=== PATIENT | female | born 1955 | race Caucasian/White ===

== ENCOUNTER 2016-07-06 12:09 | Inpatient (IN) | payer MEDICARE, BC ==
[~2016-07-06] VITALS: Ht 172.7 cm; Wt 140.3 kg
[~2016-07-06 12:09] MED LIST: AMIO200T2 PO; AMLO10TA2 PO; ARIP2TAB PO; ASPI-482 PO; ATOR20TA58 PO; BUSP5TAB PO; BYSTOLIC10 MG PO; CLON0.2T PO; DARB100V SQ; DILT360C PO; DOCU100C5 PO; ESCI20TA PO; FE F PO; FERR-26 PO; GABA600T2 PO; HEPA500022 IJ; INSU100V SQ; IPRA3AMP NEB; LABE5VIA14 IV; LISI1TAB3 PO; MELA3TAB PO; MICO85PO2 TP; MIRT7.5T8 PO; NPH,100V4 SQ; POLY17PO3 PO; SENN8.6T3 PO; SITA1TAB11 PO
--- NOTE | 2016-07-06 12:41 | PHYS DOC ---
Past Medical History Past Medical History: Diabetes-Type II, High Cholesterol, Hypertension, Renal Failure Past Surgical History: Other Additional Past Surgical Histo: dialysis catheter R chest Alcohol Use: None Drug Use: None Adult General Chief Complaint Chief Complaint: DIARRHEA HPI HPI Patient is a 60 year old female who presents with diarrhea. Patient has 5 day history of frequent loose stools, unable to quantify today. Decreased appetite with no oral intake for several days. Reports nausea without vomiting, denies abdominal pain, denies hematochezia or melena, denies dysuria or hematuria. Reports generalized weakness, has just been lying in bed. Missed dialysis on Wednesday and today. Also has history of diabetes and hypertension. PCP is Dr. Patel , optical goods drilling machine operator is Dr. Reynaga. Review of Systems Review of Systems Constitutional: Denies fever or chills , reports generalized weakness Eyes: Denies change in visual acuity HENT: Denies nasal congestion or sore throat Respiratory: Denies cough or shortness of breath Cardiovascular: Denies chest pain or edema GI: Reports nausea and diarrhea. Denies abdominal pain, vomiting, bloody stools : Denies dysuria or hematuria Musculoskeletal: Denies back pain or joint pain Integument: Denies rash or skin lesions Neurologic: Denies headache, focal weakness or sensory changes Current Medications Current Medications Current Medications Medications (Trade) Dose Ordered Sig/Gi Start Time Stop Time Status Last Admin Dose Admin Ondansetron HCl (Zofran) 4 mg 1X ONCE 07/06/16 12:45 07/06/16 12:46 DC 07/06/16 13:33 4 MG Sodium Chloride (Iv Sodium Chloride 0.9% 500ml Bag) 500 ml @ 1,000 mls/hr 1X ONCE 07/06/16 12:45 07/06/16 13:14 DC 07/06/16 13:33 1,000 MLS/HR Allergies Allergies Allergies Coded Allergies Type Severity Reaction Last Updated Verified No Known Drug Allergies 07/06/16 No Physical Exam Physical Exam Constitutional: Obese, no acute distress, non-toxic appearance. HENT: Normocephalic, atraumatic, bilateral external ears normal, oropharynx dry , nose normal. Eyes: PERRLA, EOMI, conjunctiva normal, no discharge. Neck: supple, no stridor. Cardiovascular: RRR, no murmurs, no edema. Lungs & Thorax: Diminished throughout, LCTAB, no wheezing, no respiratory distress. Abdomen: Hypoactive bowel sounds, soft, nontender, no masses or pulsatile masses , nondistended. Skin: Warm, dry, no erythema, mild erythema over right upper chest wall and surrounding dialysis port, numerous scabs in various stages of healing. Back: No CVA tenderness. Extremities: No tenderness, no edema. Neurologic: Alert and oriented X 3, moves all extremities, no focal deficits noted. Psychologic: flat affect Current Patient Data Vital Signs Vital Signs Date Time Temp Pulse Resp B/P Pulse Ox O2 Delivery O2 Flow Rate FiO2 07/06/16 13:36 82 21 101/46 92 Nasal Cannula 3 07/06/16 13:30 100.4 100.4 Lab Values Laboratory Tests Test 07/06/16 12:54 07/06/16 13:00 07/06/16 13:10 Urine Collection Type Unknown Urine Color Beena Urine Clarity Cloudy Urine pH 5.0 Urine Specific [place] 1.020 Urine Protein >=300mg/dL (NEG-TRACE) Urine Glucose (UA) Negativemg/dL (NEG) Urine Ketones (Stick) Tracemg/dL (NEG) Urine Blood Large (NEG) Urine Nitrite Negative (NEG) Urine Bilirubin Moderate (NEG) Urine Urobilinogen Dipstick 1.0mg/dL (0.2 mg/dL) Urine Leukocyte Esterase Moderate (NEG) Urine RBC 1-2/HPF (0-2) Urine WBC >40/HPF (0-4) Urine Squamous Epithelial Cells Occ/LPF Urine Bacteria Many/HPF (0-FEW) Prothrombin Time 17.5SEC (11.7-14.0) H Prothrombin Time INR 1.5 (0.8-1.1) H PTT 30SEC (24-38) Sodium Level 141mmol/L (136-145) Potassium Level 4.8mmol/L (3.5-5.1) Chloride Level 104mmol/L (98-107) Carbon Dioxide Level 21mmol/L (21-32) Anion Gap 16 (6-14) H Blood Urea Nitrogen 105mg/dL (7-20) H Creatinine 9.9mg/dL (0.6-1.0) H Estimated GFR (Cockcroft-Gault) 4.0 BUN/Creatinine Ratio 11 (6-20) Glucose Level 135mg/dL (70-99) H Calcium Level 7.8mg/dL (8.5-10.1) L Total Bilirubin 1.0mg/dL (0.2-1.0) Aspartate Amino Transferase (AST) 56U/L (15-37) H Alanine Aminotransferase (ALT) 46U/L (14-59) Alkaline Phosphatase 169U/L (46-116) H Troponin I Quantitative < 0.017ng/mL (0.000-0.055) PB-Lje-C-Type Natriuretic Peptide > 96331pm/mL (0-124) H Total Protein 7.5g/dL (6.4-8.2) Albumin 2.0g/dL (3.4-5.0) L Albumin/Globulin Ratio 0.4 (1.0-1.7) L White Blood Count 12.4x10^3/uL (4.0-11.0) H Red Blood Count 4.02x10^6/uL (3.50-5.40) Hemoglobin 10.7g/dL (12.0-15.5) L Hematocrit 33.6% (36.0-47.0) L Mean Corpuscular Volume 84fL (79-100) Mean Corpuscular Hemoglobin 27pg (25-35) Mean Corpuscular Hemoglobin Concent 32g/dL (31-37) Red Cell Distribution Width 17.0% (11.5-14.5) H Platelet Count 174x10^3/uL (140-400) Neutrophils (%) (Auto) 90% (31-73) H Lymphocytes (%) (Auto) 6% (24-48) L Monocytes (%) (Auto) 4% (0-9) Eosinophils (%) (Auto) 0% (0-3) Basophils (%) (Auto) 1% (0-3) Neutrophils # (Auto) 11.2x10^3uL (1.8-7.7) H Lymphocytes # (Auto) 0.7x10^3/uL (1.0-4.8) L Monocytes # (Auto) 0.5x10^3/uL (0.0-1.1) Eosinophils # (Auto) 0.0x10^3/uL (0.0-0.7) Basophils # (Auto) 0.1x10^3/uL (0.0-0.2) Platelet Estimate Pending Lactic Acid Level 1.4mmol/L (0.4-2.0) Laboratory Tests 07/06/16 13:10 Laboratory Tests 07/06/16 13:00 EKG EKG interpreted by me: NSR rate 84, no ST elevation, T waves inverted in 2, 3, aVF , V1-V3 without ST depression, RBBB, no ectopy.[] Radiology/Procedures Radiology/Procedures PROCEDURE: CHEST AP ONLY Portable chest, 07/06/2016: History: Shortness of breath arm and back pain Comparison is made to a study from 08/16/2015. A right jugular dialysis type catheter extends into the right atrium. The patient is rotated to the left. The heart is mildly enlarged. There is calcific plaquing of the aorta. The pulmonary vascularity is within normal limits. There is minimal streaky right basilar atelectasis. The left lung is clear. There is no evidence of pleural fluid. IMPRESSION: Minimal right basilar atelectasis. DICTATED and SIGNED BY: ONIEL SALGADO MD DATE: 07/06/16 1321 [] Course & Med Decision Making Course & Med Decision Making Pertinent Labs and Imaging studies reviewed. (See chart for details) Patient presents with weakness as above. Blood pressure hypotensive in route, improving in the emergency department. Gave 500 mL fluid bolus. Patient found to have fever with rectal temperature, leukocytosis. Chest x-ray shows infiltrate and UA consistent with UTI. Sent blood culture and lactic acid per sepsis protocol however will not administer IV fluids aggressively due to end- stage renal disease having missed dialysis twice recently. She will need to undergo dialysis and then likely require gentle hydration for intravascular depletion. She received broad-spectrum antibiotics after blood cultures were drawn. I recommended admission to the hospital for further evaluation and treatment. The patient agreed with the plan of care. Discussed with Dr. Rosales who agrees to admit to inpatient status, consults to Dr. Brito of nephrology who will arrange for urgent dialysis, as well as Dr. Martins of pulmonary & Dr. Torres of GI. Patient admitted in stable condition. [] Dragon Disclaimer Dragon Disclaimer This electronic medical record was generated, in whole or in part, using a voice recognition dictation system. Departure Departure Impression: Primary Impression: Generalized weakness Additional Impressions: Sepsis Healthcare-associated pneumonia Urinary tract infection End stage renal disease Transient hypotension Anemia Disposition: 09 ADMITTED INPATIENT Admitting Physician: Clarence Rosales Condition: STABLE Problem Qualifiers TRUNG BURRELL MD Jul 06, 2016 12:41
[2016-07-06] MEDS ORDERED: IV NORMAL SALINE 500ML BAG 500 ML IV ONE (12:45)
[2016-07-06] MEDS ORDERED: ONDANSETRON PF 4 MG/2 ML VIAL. IV ONE (12:45)
[2016-07-06 13:06] LABS: BILIRUBIN,URINE MODERATE (NEG); GLUCOSE,URINE NEGATIVE (NEG); NITRITE,URINE NEGATIVE (NEG); PROTEIN,URINE >=300 mg/dL (NEG-TRACE)
[2016-07-06 13:20] LABS: WBC,URINE >40 /HPF (0-4)
[2016-07-06 13:21] LABS: BACTERIA,URINE MANY /HPF (0-FEW); SQUAMOUS EPITHELIAL CELL,UR OCC /LPF
[2016-07-06 13:26] LABS: BASO # 0.1 x10^3/uL (0.0-0.2); BASO % 1 % (0-3); EOS % 0 % (0-3); HEMATOCRIT 33.6 % (36.0-47.0); HEMOGLOBIN 10.7 g/dL (12.0-15.5); LYMPH # 0.7 x10^3/uL (1.0-4.8); LYMPH % 6 % (24-48); MEAN CORPUSCULAR HEMOGLOBIN 27 pg (25-35); MEAN CORPUSCULAR HGB CONC 32 g/dL (31-37); MEAN CORPUSCULAR VOLUME 84 fL (79-100); MONO % 4 % (0-9); NEUT % 90 % (31-73); PLATELET COUNT 174 x10^3/uL (140-400); RED BLOOD COUNT 4.02 x10^6/uL (3.50-5.40); WHITE BLOOD COUNT 12.4 x10^3/uL (4.0-11.0)
--- NOTE | 2016-07-06 13:26 | RAD ---
Portable chest, 07/06/2016: History: Shortness of breath arm and back pain Comparison is made to a study from 08/16/2015. A right jugular dialysis type catheter extends into the right atrium. The patient is rotated to the left. The heart is mildly enlarged. There is calcific plaquing of the aorta. The pulmonary vascularity is within normal limits. There is minimal streaky right basilar atelectasis. The left lung is clear. There is no evidence of pleural fluid. IMPRESSION: Minimal right basilar atelectasis.
[2016-07-06 13:29] LABS: CALCIUM 7.8 mg/dL (8.5-10.1); CREATININE 9.9 mg/dL (0.6-1.0); POTASSIUM 4.8 mmol/L (3.5-5.1)
[2016-07-06 13:35] LABS: ALBUMIN/GLOBULIN RATIO 0.4 (1.0-1.7); TOTAL PROTEIN 7.5 g/dL (6.4-8.2)
[2016-07-06 13:36] LABS: INR 1.5 (0.8-1.1); PROTHROMBIN TIME PATIENT 17.5 SEC (11.7-14.0)
--- NOTE | 2016-07-06 13:44 | EKG ---
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
[2016-07-06] MEDS ORDERED: PIP/TAZO PER PHARMACY MC PRN (14:00)
[2016-07-06] MEDS ORDERED: LEVOFLOXACIN PER PHARMACY MC PRN (14:00)
[2016-07-06] MEDS ORDERED: VANCOMYCIN 2 GM in IV NORMAL SALINE 500ML BAG 500 ML IV ONE (14:15)
[2016-07-06] MEDS ORDERED: ACETAMINOPHEN 325 MG TABLET. PO PRN (14:30)
[2016-07-06] MEDS ORDERED: ONDANSETRON PF 4 MG/2 ML VIAL. IV PRN (14:30)
[2016-07-06] MEDS ORDERED: MORPHINE SULFATE 2 MG/ML DISP.SYRIN. IV PRN (14:30)
[2016-07-06] MEDS: PIPERACILLIN/TAZOBACTAM 2.25 GM in IV NORMAL SALINE 50ML 50 ML IV SCH (15:00)
--- NOTE | 2016-07-06 15:19 | PDOC2 ---
GI CONSULT Reason For Consult: Diarrhea HPI: HPI: 60 y/o female seen in ER prior to admission to cardiac unit. She is not feeling well, is tiring of being in the ER saying she wants to go to her room and eat, and is not too forthcoming w/ information during the interview. Her , Anibal, provides most history. Diarrhea began on 07/02, possibly after eating [place]ican food the night before. It has been bothersome enough to keep her home from dialysis. Also reports decreased oral intake w/o vomiting. No abd pain. No hematochezia, melena. No reflux/heartburn. No previous colonoscopy or EGD. H/o C Diff @ [facility] in 10/2015, believes treated w/ vanco. Recovered from this, usually does not have diarrhea. Perhaps took an antibiotic recently, not sure why. Nephrology and pulmonology also asked to see. PMH: PMH: C Diff, DM, HTN, HLD, ESRD on HD, depression, toe amputations, dialysis catheter FH: Family History: No pertinent hx Social History: Smoke: Quit ALCOHOL: none Drugs: None ROS: GEN: +fevers HEENT: Denies blurred vision, sore throat CV: Denies chest pain RESP: +SOA GI: Per HPI : Denies hematuria, dysuria ENDO: Denies weight changes NEURO: Denies confusion, dizziness MSK: +weakness SKIN: Denies jaundice, pruritus VItals: Vitals: Vital Signs Date Time Temp Pulse Resp B/P Pulse Ox O2 Delivery O2 Flow Rate FiO2 07/06/16 13:36 82 21 101/46 92 Nasal Cannula 3 07/06/16 13:30 100.4 100.4 Labs: Labs: Laboratory Tests Test 07/06/16 12:54 07/06/16 13:00 07/06/16 13:10 Urine Collection Type Unknown Urine Color Beena Urine Clarity Cloudy Urine pH 5.0 Urine Specific [place] 1.020 Urine Protein >=300mg/dL (NEG-TRACE) Urine Glucose (UA) Negativemg/dL (NEG) Urine Ketones (Stick) Tracemg/dL (NEG) Urine Blood Large (NEG) Urine Nitrite Negative (NEG) Urine Bilirubin Moderate (NEG) Urine Urobilinogen Dipstick 1.0mg/dL (0.2 mg/dL) Urine Leukocyte Esterase Moderate (NEG) Urine RBC 1-2/HPF (0-2) Urine WBC >40/HPF (0-4) Urine Squamous Epithelial Cells Occ/LPF Urine Bacteria Many/HPF (0-FEW) Prothrombin Time 17.5SEC (11.7-14.0) Prothromb Time International Ratio 1.5 (0.8-1.1) Activated Partial Thromboplast Time 30SEC (24-38) Sodium Level 141mmol/L (136-145) Potassium Level 4.8mmol/L (3.5-5.1) Chloride Level 104mmol/L (98-107) Carbon Dioxide Level 21mmol/L (21-32) Anion Gap 16 (6-14) Blood Urea Nitrogen 105mg/dL (7-20) Creatinine 9.9mg/dL (0.6-1.0) Estimated GFR (Cockcroft-Gault) 4.0 BUN/Creatinine Ratio 11 (6-20) Glucose Level 135mg/dL (70-99) Calcium Level 7.8mg/dL (8.5-10.1) Total Bilirubin 1.0mg/dL (0.2-1.0) Aspartate Amino Transf (AST/SGOT) 56U/L (15-37) Alanine Aminotransferase (ALT/SGPT) 46U/L (14-59) Alkaline Phosphatase 169U/L (46-116) Troponin I Quantitative < 0.017ng/mL (0.000-0.055) OM-Tzu-B-Type Natriuretic Peptide > 31586us/mL (0-124) Total Protein 7.5g/dL (6.4-8.2) Albumin 2.0g/dL (3.4-5.0) Albumin/Globulin Ratio 0.4 (1.0-1.7) White Blood Count 12.4x10^3/uL (4.0-11.0) Red Blood Count 4.02x10^6/uL (3.50-5.40) Hemoglobin 10.7g/dL (12.0-15.5) Hematocrit 33.6% (36.0-47.0) Mean Corpuscular Volume 84fL (79-100) Mean Corpuscular Hemoglobin 27pg (25-35) Mean Corpuscular Hemoglobin Concent 32g/dL (31-37) Red Cell Distribution Width 17.0% (11.5-14.5) Platelet Count 174x10^3/uL (140-400) Neutrophils (%) (Auto) 90% (31-73) Lymphocytes (%) (Auto) 6% (24-48) Monocytes (%) (Auto) 4% (0-9) Eosinophils (%) (Auto) 0% (0-3) Basophils (%) (Auto) 1% (0-3) Neutrophils # (Auto) 11.2x10^3uL (1.8-7.7) Lymphocytes # (Auto) 0.7x10^3/uL (1.0-4.8) Monocytes # (Auto) 0.5x10^3/uL (0.0-1.1) Eosinophils # (Auto) 0.0x10^3/uL (0.0-0.7) Basophils # (Auto) 0.1x10^3/uL (0.0-0.2) Lactic Acid Level 1.4mmol/L (0.4-2.0) Allergies: Coded Allergies: No Known Drug Allergies (Unverified , 07/06/16) Medications: Current Medications Medications (Trade) Dose Ordered Sig/Gi Route PRN Reason Start Time Stop Time Status Last Admin Dose Admin Sodium Chloride (Iv Sodium Chloride 0.9% 500ml Bag) 500 ml @ 1,000 mls/hr 1X ONCE IV 07/06/16 12:45 07/06/16 13:14 DC 07/06/16 13:33 Ondansetron HCl 4 mg 4 mg 1X ONCE IV 07/06/16 12:45 07/06/16 12:46 DC 07/06/16 13:33 Vancomycin HCl/ Sodium Chloride (Iv Sodium Chloride 0.9% 500ml Bag) 500 ml @ 250 mls/hr 1X ONCE IV 07/06/16 14:15 07/06/16 16:14 07/06/16 15:03 Imaging: Imaging: CXR IMPRESSION: Minimal right basilar atelectasis. PE: GEN: NAD, obese HEENT: Atraumatic, PERRL LUNGS: decreased anteriorly, nasal cannula, poor effort HEART: RRR ABD: NABS, S/ND/NT EXTREMITY: BLE edema SKIN: crusted lesions right arm/shoulder NEURO/PSYCH: A & O 3, upset A/P: A/P: Diarrhea -onset 07/02 -no vomiting, no abd pain, no bleeding H/o C Diff -reportedly treated deric/ alisa 10/2015 @ [facility] ESRD on HD -missed dialysis UTI CRC screen -no previous colonoscopy -- Check C Diff, fecal leukocytes. RAHEEL ALCAZAR Jul 06, 2016 15:19
[2016-07-06] MEDS: VANCOMYCIN PER PHARMACY MC PRN (15:57)
--- NOTE | 2016-07-06 16:27 | PDOC2 ---
CONSULT Date of Consult Date of Consult DATE: 07/06/16 TIME: 16:24 Reason for Consult Reason for Consult: ESRD Referring Physician Referring Physician: BASILIO Identification/Chief Complaint Chief Complaint SOB AND DIARRHEA Source Source: Chart review, Patient History of Present Illness Reason for Visit: THIS IS A 60 YR OLD ADMITTED WITH HYPERVOLEMIA, SOB, DIARRHEA AND HAVING MISSED HD. LABS ARE C/W ESRD Past Medical History Cardiovascular: HTN GI: Constipation Heme/Onc: Anemia NOS Renal/: Chronic renal failure Endocrine: Diabetes, Hyperparathyroidism Past Surgical History Past Surgical History AV ACCESS AND TDC Family History Family History: Hypertension Social History Quit ALCOHOL: none Drugs: None Lives: with Family Current Problem List Problem List Problems Medical Problems: (1) Generalized weakness Status: Acute Current Medications Current Medications Current Medications Sodium Chloride (Iv Sodium Chloride 0.9% 500ml Bag) 500 ml @ 1,000 mls/hr 1X ONCE IV Last administered on 07/06/16 13:33; Start 07/06/16 at 12:45; Stop 01/12 at 13:14; Status DC Ondansetron HCl (Zofran) 4 mg 1X ONCE IV Last administered on 07/06/16 13:33 ; Start 07/06/16 at 12:45; Stop 07/06/16 at 12:46; Status DC Vancomycin HCl (Vanco Per Pharmacy) 1 each PRN DAILY PRN MC SEE COMMENTS Last administered on 07/06/16 15:57; Start 07/06/16 at 14:00 Piperacillin Sod/ Tazobactam Sod (Zosyn Per Pharmacy) 1 each PRN DAILY PRN MC SEE COMMENTS; Start 07/06/16 at 14:00 Levofloxacin/ Dextrose 1 each 1 each PRN DAILY PRN MC SEE COMMENTS; Start 07/06 at 14:00 Vancomycin HCl/ Sodium Chloride (Iv Sodium Chloride 0.9% 500ml Bag) 500 ml @ 250 mls/hr 1X ONCE IV Last administered on 07/06/16 15:03; Start 07/06/16 at 14:15; Stop 07/06/16 at 16:14; Status DC Ondansetron HCl (Zofran) 4 mg PRN Q8HRS PRN IV NAUSEA/VOMITING; Start 07/06/16 at 14:30; Stop 07/07/16 at 14:29 Morphine Sulfate 2 mg PRN Q2HR PRN IV PAIN; Start 07/06/16 at 14:30; Stop 07/07 at 14:29 Acetaminophen 650 mg 650 mg PRN Q4HRS PRN PO FEVER; Start 07/06/16 at 14:30; Stop 07/07/16 at 14:29 Piperacillin Sod/ Tazobactam Sod 2.25 gm/Sodium Chloride 50 ml @ 100 mls/hr Q8HRS IV ; Start 07/06/16 at 15:00 Levofloxacin/ Dextrose (LEVAQUIN 500mg PREMIX) 100 ml @ 100 mls/hr Q48H IV ; Start 07/06/16 at 15:00 Active Scripts Active Reported Amiodarone Hcl 200 Mg Tablet 200 Mg PO BID Aspir 81 (Aspirin) 81 Mg Tablet.dr 81 Mg PO DAILY Atorvastatin Calcium 20 Mg Tablet 20 Mg PO HS Cardizem Cd (Diltiazem Hcl) 360 Mg Cap.er.24h 360 Mg PO DAILY Docusate Sodium 100 Mg Capsule 100 Mg PO BID Melatonin 3 Mg Tablet 9 Mg PO DAILY Polyethylene Glycol 3350 17 Gm Powd.pack 17 Gm PO DAILY Senna (Sennosides) 8.6 Mg Tablet 8.6 Mg PO DAILY Clonidine Hcl 0.2 Mg Tablet 0.2 Mg PO DAILY Micro-Guard (Miconazole Nitrate) 85 Gm Powder 85 Gm TP BID Humalog (Insulin Lispro) 100 Unit/1 Ml Vial 100 Unit SQ Buspirone Hcl 5 Mg Tablet 5 Mg PO TID Aranesp Vial (Darbepoetin Naif In Polysorbat) 100 Mcg/1 Ml Vial 100 Mcg SQ WEEKLY Nephron Fa Tablet (Fe Fumarate/Dinorah/Fa/Bcomp&C) 1 Each Tablet 1 Each PO DAILY Ferrous Sulfate 325 Mg Tablet 1 Tab PO DAILY Escitalopram Oxalate 20 Mg Tablet 20 Mg PO DAILY Duoneb 0.5-3(2.5) Mg/3 Ml (Albuterol/Ipratropium) 3 Ml Ampul.neb 3 Ml NEB QID PRN Gabapentin 600 Mg Tablet 600 Mg PO BID Mirtazapine 7.5 Mg Tablet 7.5 Mg PO DAILY Abilify (Aripiprazole) 2 Mg Tablet 2.5 Mg PO DAILY Labetalol Hcl 5 Mg/1 Ml Vial 10 Mg IV PRN Heparin Sod 5,000 Unit/ 0.5 Ml (Heparin Sodium,Porcine/Pf) 5,000 Unit/0.5 Ml Vial 5,000 Unit IJ TID Novolin N (Nph, Human Insulin Isophane) 100 Unit/1 Ml Vial 100 Unit SQ PRN Allergies Allergies: Coded Allergies: No Known Drug Allergies (Unverified , 07/06/16) ROS General: YES: Appetite, Fatigue, Malaise PSYCHOLOGICAL ROS: YES: Anxiety, Depression Eyes: Yes Decreased vision Respiratory: YES: Cough, Shortness of breath Gastrointestinal: Yes Abdominal Pain, Yes Diarrhea Genitourinary: YES Other (ANURIA) Musculoskeletal: Yes Muscular Weakness Neurological: Yes Weakness Skin: Yes Dry Skin Physical Exam General: Alert, Oriented X3, Cooperative, mild distress HEENT: Atraumatic, PERRLA Lungs: Clear to auscultation Heart: Regular rate, No murmurs Abdomen: Normal bowel sounds, Soft, No tenderness Extremities: No cyanosis Neuro: Normal speech, Cranial nerves 3-12 NL Psych/Mental Status: Mental status NL, Mood NL MUSCULOSKELETAL: No deformity, No swelling Vitals VITALS Vital Signs Date Time Temp Pulse Resp B/P Pulse Ox O2 Delivery O2 Flow Rate FiO2 07/06/16 14:36 82 19 118/51 99 Nasal Cannula 3 07/06/16 13:30 100.4 100.4 Labs Labs Laboratory Tests Test 07/06/16 12:54 07/06/16 13:00 07/06/16 13:10 Urine Collection Type Unknown Urine Color [place] Urine Clarity Cloudy Urine pH 5.0 Urine Specific [place] 1.020 Urine Protein >=300mg/dL (NEG-TRACE) Urine Glucose (UA) Negativemg/dL (NEG) Urine Ketones (Stick) Tracemg/dL (NEG) Urine Blood Large (NEG) Urine Nitrite Negative (NEG) Urine Bilirubin Moderate (NEG) Urine Urobilinogen Dipstick 1.0mg/dL (0.2 mg/dL) Urine Leukocyte Esterase Moderate (NEG) Urine RBC 1-2/HPF (0-2) Urine WBC >40/HPF (0-4) Urine Squamous Epithelial Cells Occ/LPF Urine Bacteria Many/HPF (0-FEW) Prothrombin Time 17.5SEC (11.7-14.0) Prothromb Time International Ratio 1.5 (0.8-1.1) Activated Partial Thromboplast Time 30SEC (24-38) Sodium Level 141mmol/L (136-145) Potassium Level 4.8mmol/L (3.5-5.1) Chloride Level 104mmol/L (98-107) Carbon Dioxide Level 21mmol/L (21-32) Anion Gap 16 (6-14) Blood Urea Nitrogen 105mg/dL (7-20) Creatinine 9.9mg/dL (0.6-1.0) Estimated GFR (Cockcroft-Gault) 4.0 BUN/Creatinine Ratio 11 (6-20) Glucose Level 135mg/dL (70-99) Calcium Level 7.8mg/dL (8.5-10.1) Total Bilirubin 1.0mg/dL (0.2-1.0) Aspartate Amino Transf (AST/SGOT) 56U/L (15-37) Alanine Aminotransferase (ALT/SGPT) 46U/L (14-59) Alkaline Phosphatase 169U/L (46-116) Troponin I Quantitative < 0.017ng/mL (0.000-0.055) NQ-Qpr-D-Type Natriuretic Peptide > 82004tw/mL (0-124) Total Protein 7.5g/dL (6.4-8.2) Albumin 2.0g/dL (3.4-5.0) Albumin/Globulin Ratio 0.4 (1.0-1.7) White Blood Count 12.4x10^3/uL (4.0-11.0) Red Blood Count 4.02x10^6/uL (3.50-5.40) Hemoglobin 10.7g/dL (12.0-15.5) Hematocrit 33.6% (36.0-47.0) Mean Corpuscular Volume 84fL (79-100) Mean Corpuscular Hemoglobin 27pg (25-35) Mean Corpuscular Hemoglobin Concent 32g/dL (31-37) Red Cell Distribution Width 17.0% (11.5-14.5) Platelet Count 174x10^3/uL (140-400) Neutrophils (%) (Auto) 90% (31-73) Lymphocytes (%) (Auto) 6% (24-48) Monocytes (%) (Auto) 4% (0-9) Eosinophils (%) (Auto) 0% (0-3) Basophils (%) (Auto) 1% (0-3) Neutrophils # (Auto) 11.2x10^3uL (1.8-7.7) Lymphocytes # (Auto) 0.7x10^3/uL (1.0-4.8) Monocytes # (Auto) 0.5x10^3/uL (0.0-1.1) Eosinophils # (Auto) 0.0x10^3/uL (0.0-0.7) Basophils # (Auto) 0.1x10^3/uL (0.0-0.2) Lactic Acid Level 1.4mmol/L (0.4-2.0) Laboratory Tests Test 07/06/16 12:54 07/06/16 13:00 07/06/16 13:10 Urine Collection Type Unknown Urine Color Beena Urine Clarity Cloudy Urine pH 5.0 Urine Specific [place] 1.020 Urine Protein >=300mg/dL (NEG-TRACE) Urine Glucose (UA) Negativemg/dL (NEG) Urine Ketones (Stick) Tracemg/dL (NEG) Urine Blood Large (NEG) Urine Nitrite Negative (NEG) Urine Bilirubin Moderate (NEG) Urine Urobilinogen Dipstick 1.0mg/dL (0.2 mg/dL) Urine Leukocyte Esterase Moderate (NEG) Urine RBC 1-2/HPF (0-2) Urine WBC >40/HPF (0-4) Urine Squamous Epithelial Cells Occ/LPF Urine Bacteria Many/HPF (0-FEW) Prothrombin Time 17.5SEC (11.7-14.0) Prothromb Time International Ratio 1.5 (0.8-1.1) Activated Partial Thromboplast Time 30SEC (24-38) Sodium Level 141mmol/L (136-145) Potassium Level 4.8mmol/L (3.5-5.1) Chloride Level 104mmol/L (98-107) Carbon Dioxide Level 21mmol/L (21-32) Anion Gap 16 (6-14) Blood Urea Nitrogen 105mg/dL (7-20) Creatinine 9.9mg/dL (0.6-1.0) Estimated GFR (Cockcroft-Gault) 4.0 BUN/Creatinine Ratio 11 (6-20) Glucose Level 135mg/dL (70-99) Calcium Level 7.8mg/dL (8.5-10.1) Total Bilirubin 1.0mg/dL (0.2-1.0) Aspartate Amino Transf (AST/SGOT) 56U/L (15-37) Alanine Aminotransferase (ALT/SGPT) 46U/L (14-59) Alkaline Phosphatase 169U/L (46-116) Troponin I Quantitative < 0.017ng/mL (0.000-0.055) YX-Lnk-L-Type Natriuretic Peptide > 65131rz/mL (0-124) Total Protein 7.5g/dL (6.4-8.2) Albumin 2.0g/dL (3.4-5.0) Albumin/Globulin Ratio 0.4 (1.0-1.7) White Blood Count 12.4x10^3/uL (4.0-11.0) Red Blood Count 4.02x10^6/uL (3.50-5.40) Hemoglobin 10.7g/dL (12.0-15.5) Hematocrit 33.6% (36.0-47.0) Mean Corpuscular Volume 84fL (79-100) Mean Corpuscular Hemoglobin 27pg (25-35) Mean Corpuscular Hemoglobin Concent 32g/dL (31-37) Red Cell Distribution Width 17.0% (11.5-14.5) Platelet Count 174x10^3/uL (140-400) Neutrophils (%) (Auto) 90% (31-73) Lymphocytes (%) (Auto) 6% (24-48) Monocytes (%) (Auto) 4% (0-9) Eosinophils (%) (Auto) 0% (0-3) Basophils (%) (Auto) 1% (0-3) Neutrophils # (Auto) 11.2x10^3uL (1.8-7.7) Lymphocytes # (Auto) 0.7x10^3/uL (1.0-4.8) Monocytes # (Auto) 0.5x10^3/uL (0.0-1.1) Eosinophils # (Auto) 0.0x10^3/uL (0.0-0.7) Basophils # (Auto) 0.1x10^3/uL (0.0-0.2) Lactic Acid Level 1.4mmol/L (0.4-2.0) Assessment/Plan Assessment/Plan IMP ESRD ANEMIA UTI NON COMPLIANCE HYPERVOLEMIA DIARRHEA PLAN ARANESP ENC COMPLIANCE GI EVAL AND TX HD TODAY UF TO DW UPDATED MELITON SÁNCHEZ MD Jul 06, 2016 16:27
[2016-07-06 16:30] VITALS: BP 104/36
--- NOTE | 2016-07-06 17:32 | PDOC ---
PULMONARY PROGRESS NOTES Vitals Vital Signs Date Time Temp Pulse Resp B/P Pulse Ox O2 Delivery O2 Flow Rate FiO2 07/06/16 16:38 Nasal Cannula 3.0 07/06/16 16:30 98.7 87 20 104/36 97 98.7 Labs Laboratory Tests Test 07/06/16 12:54 07/06/16 13:00 07/06/16 13:10 07/06/16 17:15 Urine Collection Type Unknown Urine Color Beena Urine Clarity Cloudy Urine pH 5.0 Urine Specific [place] 1.020 Urine Protein >=300mg/dL (NEG-TRACE) Urine Glucose (UA) Negativemg/dL (NEG) Urine Ketones (Stick) Tracemg/dL (NEG) Urine Blood Large (NEG) Urine Nitrite Negative (NEG) Urine Bilirubin Moderate (NEG) Urine Urobilinogen Dipstick 1.0mg/dL (0.2 mg/dL) Urine Leukocyte Esterase Moderate (NEG) Urine RBC 1-2/HPF (0-2) Urine WBC >40/HPF (0-4) Urine Squamous Epithelial Cells Occ/LPF Urine Bacteria Many/HPF (0-FEW) Prothrombin Time 17.5SEC (11.7-14.0) Prothromb Time International Ratio 1.5 (0.8-1.1) Activated Partial Thromboplast Time 30SEC (24-38) Sodium Level 141mmol/L (136-145) Potassium Level 4.8mmol/L (3.5-5.1) Chloride Level 104mmol/L (98-107) Carbon Dioxide Level 21mmol/L (21-32) Anion Gap 16 (6-14) Blood Urea Nitrogen 105mg/dL (7-20) Creatinine 9.9mg/dL (0.6-1.0) Estimated GFR (Cockcroft-Gault) 4.0 BUN/Creatinine Ratio 11 (6-20) Glucose Level 135mg/dL (70-99) Calcium Level 7.8mg/dL (8.5-10.1) Total Bilirubin 1.0mg/dL (0.2-1.0) Aspartate Amino Transf (AST/SGOT) 56U/L (15-37) Alanine Aminotransferase (ALT/SGPT) 46U/L (14-59) Alkaline Phosphatase 169U/L (46-116) Troponin I Quantitative < 0.017ng/mL (0.000-0.055) JT-Muc-O-Type Natriuretic Peptide > 48738oi/mL (0-124) Total Protein 7.5g/dL (6.4-8.2) Albumin 2.0g/dL (3.4-5.0) Albumin/Globulin Ratio 0.4 (1.0-1.7) White Blood Count 12.4x10^3/uL (4.0-11.0) Red Blood Count 4.02x10^6/uL (3.50-5.40) Hemoglobin 10.7g/dL (12.0-15.5) Hematocrit 33.6% (36.0-47.0) Mean Corpuscular Volume 84fL (79-100) Mean Corpuscular Hemoglobin 27pg (25-35) Mean Corpuscular Hemoglobin Concent 32g/dL (31-37) Red Cell Distribution Width 17.0% (11.5-14.5) Platelet Count 174x10^3/uL (140-400) Neutrophils (%) (Auto) 90% (31-73) Lymphocytes (%) (Auto) 6% (24-48) Monocytes (%) (Auto) 4% (0-9) Eosinophils (%) (Auto) 0% (0-3) Basophils (%) (Auto) 1% (0-3) Neutrophils # (Auto) 11.2x10^3uL (1.8-7.7) Lymphocytes # (Auto) 0.7x10^3/uL (1.0-4.8) Monocytes # (Auto) 0.5x10^3/uL (0.0-1.1) Eosinophils # (Auto) 0.0x10^3/uL (0.0-0.7) Basophils # (Auto) 0.1x10^3/uL (0.0-0.2) Lactic Acid Level 1.4mmol/L (0.4-2.0) Glucose (Fingerstick) 160mg/dL (70-99) Laboratory Tests Test 07/06/16 12:54 07/06/16 13:00 07/06/16 13:10 07/06/16 17:15 Urine Collection Type Unknown Urine Color Beena Urine Clarity Cloudy Urine pH 5.0 Urine Specific [place] 1.020 Urine Protein >=300mg/dL (NEG-TRACE) Urine Glucose (UA) Negativemg/dL (NEG) Urine Ketones (Stick) Tracemg/dL (NEG) Urine Blood Large (NEG) Urine Nitrite Negative (NEG) Urine Bilirubin Moderate (NEG) Urine Urobilinogen Dipstick 1.0mg/dL (0.2 mg/dL) Urine Leukocyte Esterase Moderate (NEG) Urine RBC 1-2/HPF (0-2) Urine WBC >40/HPF (0-4) Urine Squamous Epithelial Cells Occ/LPF Urine Bacteria Many/HPF (0-FEW) Prothrombin Time 17.5SEC (11.7-14.0) Prothromb Time International Ratio 1.5 (0.8-1.1) Activated Partial Thromboplast Time 30SEC (24-38) Sodium Level 141mmol/L (136-145) Potassium Level 4.8mmol/L (3.5-5.1) Chloride Level 104mmol/L (98-107) Carbon Dioxide Level 21mmol/L (21-32) Anion Gap 16 (6-14) Blood Urea Nitrogen 105mg/dL (7-20) Creatinine 9.9mg/dL (0.6-1.0) Estimated GFR (Cockcroft-Gault) 4.0 BUN/Creatinine Ratio 11 (6-20) Glucose Level 135mg/dL (70-99) Calcium Level 7.8mg/dL (8.5-10.1) Total Bilirubin 1.0mg/dL (0.2-1.0) Aspartate Amino Transf (AST/SGOT) 56U/L (15-37) Alanine Aminotransferase (ALT/SGPT) 46U/L (14-59) Alkaline Phosphatase 169U/L (46-116) Troponin I Quantitative < 0.017ng/mL (0.000-0.055) QM-Hqy-H-Type Natriuretic Peptide > 52063ck/mL (0-124) Total Protein 7.5g/dL (6.4-8.2) Albumin 2.0g/dL (3.4-5.0) Albumin/Globulin Ratio 0.4 (1.0-1.7) White Blood Count 12.4x10^3/uL (4.0-11.0) Red Blood Count 4.02x10^6/uL (3.50-5.40) Hemoglobin 10.7g/dL (12.0-15.5) Hematocrit 33.6% (36.0-47.0) Mean Corpuscular Volume 84fL (79-100) Mean Corpuscular Hemoglobin 27pg (25-35) Mean Corpuscular Hemoglobin Concent 32g/dL (31-37) Red Cell Distribution Width 17.0% (11.5-14.5) Platelet Count 174x10^3/uL (140-400) Neutrophils (%) (Auto) 90% (31-73) Lymphocytes (%) (Auto) 6% (24-48) Monocytes (%) (Auto) 4% (0-9) Eosinophils (%) (Auto) 0% (0-3) Basophils (%) (Auto) 1% (0-3) Neutrophils # (Auto) 11.2x10^3uL (1.8-7.7) Lymphocytes # (Auto) 0.7x10^3/uL (1.0-4.8) Monocytes # (Auto) 0.5x10^3/uL (0.0-1.1) Eosinophils # (Auto) 0.0x10^3/uL (0.0-0.7) Basophils # (Auto) 0.1x10^3/uL (0.0-0.2) Lactic Acid Level 1.4mmol/L (0.4-2.0) Glucose (Fingerstick) 160mg/dL (70-99) Medications Active Scripts Medications Dose Route/Sig Days Date Category Amiodarone Hcl 200 Mg Tablet 200 Mg PO BID 08/28/15 Reported Aspir 81 (Aspirin) 81 Mg Tablet.dr 81 Mg PO DAILY 08/28/15 Reported Atorvastatin Calcium 20 Mg Tablet 20 Mg PO HS 08/28/15 Reported Cardizem Cd (Diltiazem Hcl) 360 Mg Cap.er.24h 360 Mg PO DAILY 08/28/15 Reported Docusate Sodium 100 Mg Capsule 100 Mg PO BID 08/28/15 Reported Melatonin 3 Mg Tablet 9 Mg PO DAILY 08/28/15 Reported Polyethylene Glycol 3350 17 Gm Powd.pack 17 Gm PO DAILY 08/28/15 Reported Senna (Sennosides) 8.6 Mg Tablet 8.6 Mg PO DAILY 08/28/15 Reported Clonidine Hcl 0.2 Mg Tablet 0.2 Mg PO DAILY 08/28/15 Reported Micro-Guard (Miconazole Nitrate) 85 Gm Powder 85 Gm TP BID 08/28/15 Reported Humalog (Insulin Lispro) 100 Unit/1 Ml Vial 100 Unit SQ 08/28/15 Reported Buspirone Hcl 5 Mg Tablet 5 Mg PO TID 08/28/15 Reported Aranesp Vial (Darbepoetin Naif In Polysorbat) 100 Mcg/1 Ml Vial 100 Mcg SQ WEEKLY 08/28/15 Reported Nephron Fa Tablet (Fe Fumarate/Dinorah/Fa/Bcomp&C) 1 Each Tablet 1 Each PO DAILY 08/28/15 Reported Ferrous Sulfate 325 Mg Tablet 1 Tab PO DAILY 08/28/15 Reported Escitalopram Oxalate 20 Mg Tablet 20 Mg PO DAILY 08/28/15 Reported Duoneb 0.5-3(2.5) Mg/3 Ml (Albuterol/Ipratropium) 3 Ml Ampul.neb 3 Ml NEB QID PRN 08/28/15 Reported Gabapentin 600 Mg Tablet 600 Mg PO BID 08/28/15 Reported Mirtazapine 7.5 Mg Tablet 7.5 Mg PO DAILY 08/28/15 Reported Abilify (Aripiprazole) 2 Mg Tablet 2.5 Mg PO DAILY 08/28/15 Reported Labetalol Hcl 5 Mg/1 Ml Vial 10 Mg IV PRN 08/28/15 Reported Heparin Sod 5,000 Unit/ 0.5 Ml (Heparin Sodium,Porcine/Pf) 5,000 Unit/0.5 Ml Vial 5,000 Unit IJ TID 08/28/15 Reported Novolin N (Nph, Human Insulin Isophane) 100 Unit/1 Ml Vial 100 Unit SQ PRN 05/31/13 Reported Impression . Possible sepsis UTI KRYSTLE see orders FARIDEH COOK MD Jul 06, 2016 17:32
[2016-07-06 17:40] LABS: ANISOCYTOSIS SLIGHT; HYPOCHROMIA SLIGHT; PLT ESTIMATE ADEQUATE (ADEQUATE); TOXIC GRANULATION SLIGHT
--- NOTE | 2016-07-06 18:54 | ACF ---
Admission Forms Criteria SEPSIS and OTHER FEBRILE ILLNESS, W/O FOCAL INFECTION Clinical Indications for Admission to Inpatient Care ( Place 'X' for any and all applicable criteria): Admission is indicated for ANY ONE of the following (1)(2)(3)(4): [ ] I. Bacteremia [X]II. Suspected or identified specific infection requiring hospitalization (eg, meningitis, endocarditis) [ ]III. Hemodynamic instability [ ]IV. Altered mental status [ ]V. Failure or unavailability of outpatient antimicrobial treatment [ ]. Hypoxemia [ ]VII. Seizures [ ]VIII. High-risk febrile neutropenia [ ]IX. Need for parenteral antibiotic in patient who is likely to abuse vascular access device (eg, injection drug user) [A](7) [ ]X. Temperature greater than 104.9 degrees F (40.5 degrees C) (oral) [ ]XI. Inpatient admission required rather than observation care because of ANY ONE of the following: [ ]1) Specific infection identified that is too severe for outpatient treatment or observation care trial [ ]2) Metabolic disorder (eg, hypoglycemia, hyperglycemia, metabolic acidosis) that is severe or persistent [ ]3) Temperature greater than 103.1 degrees F (39.5 degrees C) ( oral) that is not responsive to observation care treatment [ ]4) IV fluid to replace significant ongoing (eg, for over 24 hours) losses (> 3 L/m2 per day) [ ]5) Supplemental oxygen or respiratory treatments for over 24 hours that is performable only in acute inpatient setting [ ]6) Parenteral nutrition regimen need that must be implemented on inpatient basis [ ]7) Strict or protective (eg, laminar flow) isolation [ ]8) Other condition, treatment or monitoring requiring inpatient admission Extended stay beyond goal length of stay may be needed for(1)(3) [ ]a) Sepsis or septic shock(22) [ ]b) Positive blood cultures [ ]c) Insufficient oral intake [ ]d) High-risk febrile neutropenia(29)(30) [ ]e) Continued fever and clinical instability [ ]f) Clinically active comorbid illness (e.g,heart failure, renal failure , diabetes) The original [employer] content created by Brigitte Buckley has been revised. The portions of the content which have been revised are identified through the use of italic text or in bold, and Brigitte Buckley has neither reviewed nor approved the modified material. All other unmodified content is copyright [facility]. Please see references footnoted in the original [facility] edition 2016 Admission Criteria Met?: Yes RAFA PACK Jul 06, 2016 18:54
[2016-07-06 19:30] VITALS: BP 126/44
[2016-07-06] MEDS: DARBEPOETIN ALFA 60 MCG/0.3 ML DISP.SYRIN. SQ SCH (19:31)
[2016-07-06] MEDS ORDERED: IV NORMAL SALINE 1000ML BAG 1,000 ML IV PRN (23:29)
[2016-07-06] MEDS ORDERED: 0.9 % SODIUM CHLORIDE 10 ML DISP.SYRIN. IV PRN ×2 (23:30)
[2016-07-06] MEDS ORDERED: DIALYSIS PATIENT. MC PRN ×2 (23:30)
[2016-07-07] VITALS (7 sets, daily range): BP systolic 96–128; BP diastolic 37–58
[2016-07-07] MEDS: PIPERACILLIN/TAZOBACTAM 2.25 GM in IV NORMAL SALINE 50ML 50 ML IV SCH ×4 (00:27→22:45)
--- NOTE | 2016-07-07 00:39 | HP ---
ADMIT DATE: 07/06/2016 CHIEF COMPLAINT: Weakness, fevers, mental status change and diarrhea. HISTORY OF PRESENT ILLNESS: The patient is a pleasant 60-year-old female with multiple medical history. She is on dialysis. Today, she presents with a 5-day history of diarrhea. She has lost her appetite. She has gotten dehydrated. She had some vomiting and nausea. She missed her dialysis for the past couple of days. While in the ER, she is noted to be septic. I discussed the case with the ER physician. 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 We will also be started an IV antibiotics. She is quite sick. PAST MEDICAL HISTORY: End-stage renal disease, on dialysis; previous sepsis; diabetes; hyperlipidemia; hypertension and right chest dialysis catheter. ALLERGIES: None. FAMILY HISTORY: Coronary artery disease. SOCIAL HISTORY: She does not drink, smoke or take drugs. MEDICATIONS: Reviewed, please refer to the MRAD. REVIEW OF SYSTEMS: Unreliable. The patient is too weak to confused. PHYSICAL EXAMINATION: VITAL SIGNS: Temperature afebrile, but she had a temperature earlier at 100.4, pulse 100, respirations 19, blood pressure 119/49. GENERAL: She is awake, but very weak and barely talk. HEART: Distant S1, S2. The right chest has a dialysis catheter. LUNGS: Slight crackles. ABDOMEN: Soft, positive bowel sounds, obese. EXTREMITIES: 2+ edema. SKIN: She has got quite a bit excoriation on her right chest. ENDOCRINE: No thyromegaly. LYMPHATICS: No cervical nodes. HEMATOPOIETIC: No bruising. LABORATORY DATA: White count 12, hemoglobin 10, platelets 174. Electrolytes: Sodium 141, potassium 4.8, chloride 104, bicarbonate 21, BUN 105, creatinine 9.9, glucose 135, alkaline phosphatase was 169, AST 56. Troponin 0. BNP greater than 35,000. Urinalysis, moderate leukocyte esterase. INR 1.5. ASSESSMENT AND PLAN: Sepsis, pneumonia, urinary tract infection and end-stage renal disease. The patient has been admitted. We will start IV antibiotics. Consult Infectious Disease, consult Nephrology, consult pulmonary medicine and GI. We will try to give her gentle IV fluids, frequent labs. PROGNOSIS: Very guarded at best. BIPIN RICHMOND DO DR: Dmitriy JOB#: [id number] / [id number]
--- NOTE | 2016-07-07 04:53 | CONS ---
DATE OF CONSULTATION: 07/06/2016 ATTENDING PHYSICIAN: Clarence Rosales MD REASON FOR CONSULTATION: The patient seen in pulmonary consultation at the request of Dr. Rosales for possible pneumonia. HISTORY OF PRESENT ILLNESS: The patient is a 60-year-old that presented to the Emergency Room, not feeling well. Her was concerned of a diarrhea and not eating. The patient reported no chest pain or pressure. She reported slight increase in shortness of breath. Chest x-ray was obtained. I reviewed the x-ray. There is some atelectasis. There is no consolidation. The patient is also on hemodialysis and I believe she is noncompliant. She denies fever or chills. She has never been on oxygen. She quit tobacco 30 years ago. No history of obstructive sleep apnea. PAST MEDICAL HISTORY: Type 2 diabetes, hyperlipidemia, morbid obesity, body mass index of 47, hypertension, and renal failure on hemodialysis. PAST SURGICAL HISTORY: Status post catheter placement. REVIEW OF SYSTEMS: As indicated above, otherwise, a 10-point system was reviewed and negative. Sleep hygiene reveals that she does snore. The does not think she has witnessing any apneic spells in the morning, she awakens unrefreshed from her sleep. The patient denies any excessive daytime sleepiness. CURRENT MEDICATION: List was reviewed. Please see the MRAD. ALLERGIES: No known drug allergies. SOCIAL HISTORY: She quit tobacco 30 years ago. Denies any alcohol intake. PHYSICAL EXAMINATION: VITAL SIGNS: The patient had a T-max of 100.4. She was in no respiratory distress, currently on 3 liters. HEENT: Eyes, the sclerae is nonicteric. NECK: Jugular venous distention was not elevated. No lymphadenopathy. CHEST: Full expansion. LUNGS: Poor airway flow, no wheezes. CARDIOVASCULAR: Regular rate and rhythm with S1, S2, no S3. ABDOMEN: Obese, soft. EXTREMITIES: No clubbing, cyanosis. Minimal edema. NEUROLOGIC: The patient was awake, alert, following commands. A detailed neuro exam was not performed. LABORATORY DATA: Reviewed. White count was elevated. INR was 1.5. Electrolytes were noted. BUN was elevated. Creatinine was elevated. Albumin was markedly low. UA was noted. There was moderate amount of esterase. WBC is greater than 40. Chest x-ray revealed some basilar atelectasis. IMPRESSION: 1. Acute respiratory failure, suspect sepsis. 2. Sepsis secondary to urinary tract infection. 3. Possible obstructive sleep apnea. 4. End-stage renal disease, noncompliant. 5. Type 2 diabetes. 6. Depression. 7. Hyperlipidemia. PLAN: 1. Continue current antibiotics and deescalate once blood cultures and urine cultures are back. 2. Possible outpatient polysomnogram, will check nocturnal desaturation study prior to discharge. 3. Continue home meds. 4. Consult Nephrology, already performed. 5. Consult Gastrointestinal, already performed. I do appreciate the privilege in sharing in this patient's care. FARIDEH COOK MD DR: GERSON/charly JOB#: [id number] / [id number]
[2016-07-07] MEDS ORDERED: VANCOMYCIN 1 GM in IV NORMAL SALINE 250ML 250 ML IV ONE (06:30)
[2016-07-07 07:17] LABS: BASO % 0 % (0-3); EOS % 1 % (0-3); HEMATOCRIT 31.7 % (36.0-47.0); LYMPH # 0.8 x10^3/uL (1.0-4.8); LYMPH % 7 % (24-48); MEAN CORPUSCULAR HEMOGLOBIN 27 pg (25-35); MEAN CORPUSCULAR HGB CONC 31 g/dL (31-37); MEAN CORPUSCULAR VOLUME 85 fL (79-100); MONO % 7 % (0-9); NEUT % 85 % (31-73); PLATELET COUNT 131 x10^3/uL (140-400); RED BLOOD COUNT 3.74 x10^6/uL (3.50-5.40); RED CELL DISTRIBUTION WIDTH 16.7 % (11.5-14.5); WHITE BLOOD COUNT 10.8 x10^3/uL (4.0-11.0)
[2016-07-07 07:38] LABS: CALCIUM 7.9 mg/dL (8.5-10.1); CREATININE 6.1 mg/dL (0.6-1.0); POTASSIUM 4.1 mmol/L (3.5-5.1)
--- NOTE | 2016-07-07 09:07 | PDOC ---
PULMONARY PROGRESS NOTES Subjective pt feels better Vitals Vital Signs Date Time Temp Pulse Resp B/P Pulse Ox O2 Delivery O2 Flow Rate FiO2 07/07/16 07:30 Nasal Cannula 3.0 07/07/16 07:00 98.4 69 16 103/46 96 98.4 ROS: No Nausea, No Chest Pain, No Abdominal Pain, No Increase Cough General: Alert Lungs: Clear Cardiovascular: S1, S2 Abdomen: Soft Neuro Exam: Alert Extremities: No Edema Skin: Warm Labs Laboratory Tests Test 07/06/16 12:54 07/06/16 13:00 07/06/16 13:10 07/06/16 17:15 Urine Collection Type Unknown Urine Color Beena Urine Clarity Cloudy Urine pH 5.0 Urine Specific [employer] 1.020 Urine Protein >=300mg/dL (NEG-TRACE) Urine Glucose (UA) Negativemg/dL (NEG) Urine Ketones (Stick) Tracemg/dL (NEG) Urine Blood Large (NEG) Urine Nitrite Negative (NEG) Urine Bilirubin Moderate (NEG) Urine Urobilinogen Dipstick 1.0mg/dL (0.2 mg/dL) Urine Leukocyte Esterase Moderate (NEG) Urine RBC 1-2/HPF (0-2) Urine WBC >40/HPF (0-4) Urine Squamous Epithelial Cells Occ/LPF Urine Bacteria Many/HPF (0-FEW) Prothrombin Time 17.5SEC (11.7-14.0) Prothromb Time International Ratio 1.5 (0.8-1.1) Activated Partial Thromboplast Time 30SEC (24-38) Sodium Level 141mmol/L (136-145) Potassium Level 4.8mmol/L (3.5-5.1) Chloride Level 104mmol/L (98-107) Carbon Dioxide Level 21mmol/L (21-32) Anion Gap 16 (6-14) Blood Urea Nitrogen 105mg/dL (7-20) Creatinine 9.9mg/dL (0.6-1.0) Estimated GFR (Cockcroft-Gault) 4.0 BUN/Creatinine Ratio 11 (6-20) Glucose Level 135mg/dL (70-99) Calcium Level 7.8mg/dL (8.5-10.1) Total Bilirubin 1.0mg/dL (0.2-1.0) Aspartate Amino Transf (AST/SGOT) 56U/L (15-37) Alanine Aminotransferase (ALT/SGPT) 46U/L (14-59) Alkaline Phosphatase 169U/L (46-116) Troponin I Quantitative < 0.017ng/mL (0.000-0.055) LM-Sff-G-Type Natriuretic Peptide > 31882dt/mL (0-124) Total Protein 7.5g/dL (6.4-8.2) Albumin 2.0g/dL (3.4-5.0) Albumin/Globulin Ratio 0.4 (1.0-1.7) White Blood Count 12.4x10^3/uL (4.0-11.0) Red Blood Count 4.02x10^6/uL (3.50-5.40) Hemoglobin 10.7g/dL (12.0-15.5) Hematocrit 33.6% (36.0-47.0) Mean Corpuscular Volume 84fL (79-100) Mean Corpuscular Hemoglobin 27pg (25-35) Mean Corpuscular Hemoglobin Concent 32g/dL (31-37) Red Cell Distribution Width 17.0% (11.5-14.5) Platelet Count 174x10^3/uL (140-400) Neutrophils (%) (Auto) 90% (31-73) Lymphocytes (%) (Auto) 6% (24-48) Monocytes (%) (Auto) 4% (0-9) Eosinophils (%) (Auto) 0% (0-3) Basophils (%) (Auto) 1% (0-3) Neutrophils # (Auto) 11.2x10^3uL (1.8-7.7) Lymphocytes # (Auto) 0.7x10^3/uL (1.0-4.8) Monocytes # (Auto) 0.5x10^3/uL (0.0-1.1) Eosinophils # (Auto) 0.0x10^3/uL (0.0-0.7) Basophils # (Auto) 0.1x10^3/uL (0.0-0.2) Segmented Neutrophils % 85% (35-66) Band Neutrophils % 2% (0-9) Lymphocytes % 11% (24-48) Monocytes % 2% (0-10) Toxic Granulation Slight Platelet Estimate Adequate (ADEQUATE) Hypochromasia Slight Anisocytosis Slight Lactic Acid Level 1.4mmol/L (0.4-2.0) Glucose (Fingerstick) 160mg/dL (70-99) Test 07/07/16 06:40 07/07/16 08:05 White Blood Count 10.8x10^3/uL (4.0-11.0) Red Blood Count 3.74x10^6/uL (3.50-5.40) Hemoglobin 10.0g/dL (12.0-15.5) Hematocrit 31.7% (36.0-47.0) Mean Corpuscular Volume 85fL (79-100) Mean Corpuscular Hemoglobin 27pg (25-35) Mean Corpuscular Hemoglobin Concent 31g/dL (31-37) Red Cell Distribution Width 16.7% (11.5-14.5) Platelet Count 131x10^3/uL (140-400) Neutrophils (%) (Auto) 85% (31-73) Lymphocytes (%) (Auto) 7% (24-48) Monocytes (%) (Auto) 7% (0-9) Eosinophils (%) (Auto) 1% (0-3) Basophils (%) (Auto) 0% (0-3) Neutrophils # (Auto) 9.1x10^3uL (1.8-7.7) Lymphocytes # (Auto) 0.8x10^3/uL (1.0-4.8) Monocytes # (Auto) 0.8x10^3/uL (0.0-1.1) Eosinophils # (Auto) 0.1x10^3/uL (0.0-0.7) Basophils # (Auto) 0.0x10^3/uL (0.0-0.2) Sodium Level 140mmol/L (136-145) Potassium Level 4.1mmol/L (3.5-5.1) Chloride Level 103mmol/L (98-107) Carbon Dioxide Level 23mmol/L (21-32) Anion Gap 14 (6-14) Blood Urea Nitrogen 58mg/dL (7-20) Creatinine 6.1mg/dL (0.6-1.0) Estimated GFR (Cockcroft-Gault) 7.0 Glucose Level 135mg/dL (70-99) Calcium Level 7.9mg/dL (8.5-10.1) Glucose (Fingerstick) 129mg/dL (70-99) Laboratory Tests Test 07/06/16 12:54 07/06/16 13:00 07/06/16 13:10 07/06/16 17:15 Urine Collection Type Unknown Urine Color Beena Urine Clarity Cloudy Urine pH 5.0 Urine Specific [employer] 1.020 Urine Protein >=300mg/dL (NEG-TRACE) Urine Glucose (UA) Negativemg/dL (NEG) Urine Ketones (Stick) Tracemg/dL (NEG) Urine Blood Large (NEG) Urine Nitrite Negative (NEG) Urine Bilirubin Moderate (NEG) Urine Urobilinogen Dipstick 1.0mg/dL (0.2 mg/dL) Urine Leukocyte Esterase Moderate (NEG) Urine RBC 1-2/HPF (0-2) Urine WBC >40/HPF (0-4) Urine Squamous Epithelial Cells Occ/LPF Urine Bacteria Many/HPF (0-FEW) Prothrombin Time 17.5SEC (11.7-14.0) Prothromb Time International Ratio 1.5 (0.8-1.1) Activated Partial Thromboplast Time 30SEC (24-38) Sodium Level 141mmol/L (136-145) Potassium Level 4.8mmol/L (3.5-5.1) Chloride Level 104mmol/L (98-107) Carbon Dioxide Level 21mmol/L (21-32) Anion Gap 16 (6-14) Blood Urea Nitrogen 105mg/dL (7-20) Creatinine 9.9mg/dL (0.6-1.0) Estimated GFR (Cockcroft-Gault) 4.0 BUN/Creatinine Ratio 11 (6-20) Glucose Level 135mg/dL (70-99) Calcium Level 7.8mg/dL (8.5-10.1) Total Bilirubin 1.0mg/dL (0.2-1.0) Aspartate Amino Transf (AST/SGOT) 56U/L (15-37) Alanine Aminotransferase (ALT/SGPT) 46U/L (14-59) Alkaline Phosphatase 169U/L (46-116) Troponin I Quantitative < 0.017ng/mL (0.000-0.055) VY-Ldv-N-Type Natriuretic Peptide > 52343gi/mL (0-124) Total Protein 7.5g/dL (6.4-8.2) Albumin 2.0g/dL (3.4-5.0) Albumin/Globulin Ratio 0.4 (1.0-1.7) White Blood Count 12.4x10^3/uL (4.0-11.0) Red Blood Count 4.02x10^6/uL (3.50-5.40) Hemoglobin 10.7g/dL (12.0-15.5) Hematocrit 33.6% (36.0-47.0) Mean Corpuscular Volume 84fL (79-100) Mean Corpuscular Hemoglobin 27pg (25-35) Mean Corpuscular Hemoglobin Concent 32g/dL (31-37) Red Cell Distribution Width 17.0% (11.5-14.5) Platelet Count 174x10^3/uL (140-400) Neutrophils (%) (Auto) 90% (31-73) Lymphocytes (%) (Auto) 6% (24-48) Monocytes (%) (Auto) 4% (0-9) Eosinophils (%) (Auto) 0% (0-3) Basophils (%) (Auto) 1% (0-3) Neutrophils # (Auto) 11.2x10^3uL (1.8-7.7) Lymphocytes # (Auto) 0.7x10^3/uL (1.0-4.8) Monocytes # (Auto) 0.5x10^3/uL (0.0-1.1) Eosinophils # (Auto) 0.0x10^3/uL (0.0-0.7) Basophils # (Auto) 0.1x10^3/uL (0.0-0.2) Segmented Neutrophils % 85% (35-66) Band Neutrophils % 2% (0-9) Lymphocytes % 11% (24-48) Monocytes % 2% (0-10) Toxic Granulation Slight Platelet Estimate Adequate (ADEQUATE) Hypochromasia Slight Anisocytosis Slight Lactic Acid Level 1.4mmol/L (0.4-2.0) Glucose (Fingerstick) 160mg/dL (70-99) Test 07/07/16 06:40 07/07/16 08:05 White Blood Count 10.8x10^3/uL (4.0-11.0) Red Blood Count 3.74x10^6/uL (3.50-5.40) Hemoglobin 10.0g/dL (12.0-15.5) Hematocrit 31.7% (36.0-47.0) Mean Corpuscular Volume 85fL (79-100) Mean Corpuscular Hemoglobin 27pg (25-35) Mean Corpuscular Hemoglobin Concent 31g/dL (31-37) Red Cell Distribution Width 16.7% (11.5-14.5) Platelet Count 131x10^3/uL (140-400) Neutrophils (%) (Auto) 85% (31-73) Lymphocytes (%) (Auto) 7% (24-48) Monocytes (%) (Auto) 7% (0-9) Eosinophils (%) (Auto) 1% (0-3) Basophils (%) (Auto) 0% (0-3) Neutrophils # (Auto) 9.1x10^3uL (1.8-7.7) Lymphocytes # (Auto) 0.8x10^3/uL (1.0-4.8) Monocytes # (Auto) 0.8x10^3/uL (0.0-1.1) Eosinophils # (Auto) 0.1x10^3/uL (0.0-0.7) Basophils # (Auto) 0.0x10^3/uL (0.0-0.2) Sodium Level 140mmol/L (136-145) Potassium Level 4.1mmol/L (3.5-5.1) Chloride Level 103mmol/L (98-107) Carbon Dioxide Level 23mmol/L (21-32) Anion Gap 14 (6-14) Blood Urea Nitrogen 58mg/dL (7-20) Creatinine 6.1mg/dL (0.6-1.0) Estimated GFR (Cockcroft-Gault) 7.0 Glucose Level 135mg/dL (70-99) Calcium Level 7.9mg/dL (8.5-10.1) Glucose (Fingerstick) 129mg/dL (70-99) Medications Active Scripts Medications Dose Route/Sig Days Date Category Amiodarone Hcl 200 Mg Tablet 200 Mg PO BID 08/28/15 Reported Aspir 81 (Aspirin) 81 Mg Tablet.dr 81 Mg PO DAILY 08/28/15 Reported Atorvastatin Calcium 20 Mg Tablet 20 Mg PO HS 08/28/15 Reported Cardizem Cd (Diltiazem Hcl) 360 Mg Cap.er.24h 360 Mg PO DAILY 08/28/15 Reported Docusate Sodium 100 Mg Capsule 100 Mg PO BID 08/28/15 Reported Melatonin 3 Mg Tablet 9 Mg PO DAILY 08/28/15 Reported Polyethylene Glycol 3350 17 Gm Powd.pack 17 Gm PO DAILY 08/28/15 Reported Senna (Sennosides) 8.6 Mg Tablet 8.6 Mg PO DAILY 08/28/15 Reported Clonidine Hcl 0.2 Mg Tablet 0.2 Mg PO DAILY 08/28/15 Reported Micro-Guard (Miconazole Nitrate) 85 Gm Powder 85 Gm TP BID 08/28/15 Reported Humalog (Insulin Lispro) 100 Unit/1 Ml Vial 100 Unit SQ 08/28/15 Reported Buspirone Hcl 5 Mg Tablet 5 Mg PO TID 08/28/15 Reported Aranesp Vial (Darbepoetin Naif In Polysorbat) 100 Mcg/1 Ml Vial 100 Mcg SQ WEEKLY 08/28/15 Reported Nephron Fa Tablet (Fe Fumarate/Dinorah/Fa/Bcomp&C) 1 Each Tablet 1 Each PO DAILY 08/28/15 Reported Ferrous Sulfate 325 Mg Tablet 1 Tab PO DAILY 08/28/15 Reported Escitalopram Oxalate 20 Mg Tablet 20 Mg PO DAILY 08/28/15 Reported Duoneb 0.5-3(2.5) Mg/3 Ml (Albuterol/Ipratropium) 3 Ml Ampul.neb 3 Ml NEB QID PRN 08/28/15 Reported Gabapentin 600 Mg Tablet 600 Mg PO BID 08/28/15 Reported Mirtazapine 7.5 Mg Tablet 7.5 Mg PO DAILY 08/28/15 Reported Abilify (Aripiprazole) 2 Mg Tablet 2.5 Mg PO DAILY 08/28/15 Reported Labetalol Hcl 5 Mg/1 Ml Vial 10 Mg IV PRN 08/28/15 Reported Heparin Sod 5,000 Unit/ 0.5 Ml (Heparin Sodium,Porcine/Pf) 5,000 Unit/0.5 Ml Vial 5,000 Unit IJ TID 08/28/15 Reported Novolin N (Nph, Human Insulin Isophane) 100 Unit/1 Ml Vial 100 Unit SQ PRN 05/31/13 Reported Impression . 1. Acute respiratory failure, suspect sepsis. 2. Sepsis secondary to urinary tract infection. 3. Possible obstructive sleep apnea. 4. End-stage renal disease, noncompliant. 5. Type 2 diabetes. 6. Depression. 7. Hyperlipidemia. Plan . d/w 1. Continue current antibiotics and deescalate once blood cultures and urine cultures are back. 2. Possible outpatient polysomnogram, will check nocturnal desaturation study prior to discharge. 3. Continue home meds. 4. Consult Nephrology, already performed. 5. Consult Gastrointestinal, already performed. FARIDEH COOK MD Jul 07, 2016 09:07
--- NOTE | 2016-07-07 11:13 | PDOC ---
Infectious Disease Note Vital Sign Vital Signs Vital Signs Date Time Temp Pulse Resp B/P Pulse Ox O2 Delivery O2 Flow Rate FiO2 07/07/16 07:30 Nasal Cannula 3.0 07/07/16 07:00 98.4 69 16 103/46 96 98.4 Labs Lab Laboratory Tests Test 07/06/16 12:54 07/06/16 13:00 07/06/16 13:10 07/06/16 17:15 Urine Collection Type Unknown Urine Color Beena Urine Clarity Cloudy Urine pH 5.0 Urine Specific [place] 1.020 Urine Protein >=300mg/dL (NEG-TRACE) Urine Glucose (UA) Negativemg/dL (NEG) Urine Ketones (Stick) Tracemg/dL (NEG) Urine Blood Large (NEG) Urine Nitrite Negative (NEG) Urine Bilirubin Moderate (NEG) Urine Urobilinogen Dipstick 1.0mg/dL (0.2 mg/dL) Urine Leukocyte Esterase Moderate (NEG) Urine RBC 1-2/HPF (0-2) Urine WBC >40/HPF (0-4) Urine Squamous Epithelial Cells Occ/LPF Urine Bacteria Many/HPF (0-FEW) Prothrombin Time 17.5SEC (11.7-14.0) Prothromb Time International Ratio 1.5 (0.8-1.1) Activated Partial Thromboplast Time 30SEC (24-38) Sodium Level 141mmol/L (136-145) Potassium Level 4.8mmol/L (3.5-5.1) Chloride Level 104mmol/L (98-107) Carbon Dioxide Level 21mmol/L (21-32) Anion Gap 16 (6-14) Blood Urea Nitrogen 105mg/dL (7-20) Creatinine 9.9mg/dL (0.6-1.0) Estimated GFR (Cockcroft-Gault) 4.0 BUN/Creatinine Ratio 11 (6-20) Glucose Level 135mg/dL (70-99) Calcium Level 7.8mg/dL (8.5-10.1) Total Bilirubin 1.0mg/dL (0.2-1.0) Aspartate Amino Transf (AST/SGOT) 56U/L (15-37) Alanine Aminotransferase (ALT/SGPT) 46U/L (14-59) Alkaline Phosphatase 169U/L (46-116) Troponin I Quantitative < 0.017ng/mL (0.000-0.055) YP-Lxk-L-Type Natriuretic Peptide > 00090eh/mL (0-124) Total Protein 7.5g/dL (6.4-8.2) Albumin 2.0g/dL (3.4-5.0) Albumin/Globulin Ratio 0.4 (1.0-1.7) White Blood Count 12.4x10^3/uL (4.0-11.0) Red Blood Count 4.02x10^6/uL (3.50-5.40) Hemoglobin 10.7g/dL (12.0-15.5) Hematocrit 33.6% (36.0-47.0) Mean Corpuscular Volume 84fL (79-100) Mean Corpuscular Hemoglobin 27pg (25-35) Mean Corpuscular Hemoglobin Concent 32g/dL (31-37) Red Cell Distribution Width 17.0% (11.5-14.5) Platelet Count 174x10^3/uL (140-400) Neutrophils (%) (Auto) 90% (31-73) Lymphocytes (%) (Auto) 6% (24-48) Monocytes (%) (Auto) 4% (0-9) Eosinophils (%) (Auto) 0% (0-3) Basophils (%) (Auto) 1% (0-3) Neutrophils # (Auto) 11.2x10^3uL (1.8-7.7) Lymphocytes # (Auto) 0.7x10^3/uL (1.0-4.8) Monocytes # (Auto) 0.5x10^3/uL (0.0-1.1) Eosinophils # (Auto) 0.0x10^3/uL (0.0-0.7) Basophils # (Auto) 0.1x10^3/uL (0.0-0.2) Segmented Neutrophils % 85% (35-66) Band Neutrophils % 2% (0-9) Lymphocytes % 11% (24-48) Monocytes % 2% (0-10) Toxic Granulation Slight Platelet Estimate Adequate (ADEQUATE) Hypochromasia Slight Anisocytosis Slight Lactic Acid Level 1.4mmol/L (0.4-2.0) Glucose (Fingerstick) 160mg/dL (70-99) Test 07/07/16 06:40 07/07/16 08:05 White Blood Count 10.8x10^3/uL (4.0-11.0) Red Blood Count 3.74x10^6/uL (3.50-5.40) Hemoglobin 10.0g/dL (12.0-15.5) Hematocrit 31.7% (36.0-47.0) Mean Corpuscular Volume 85fL (79-100) Mean Corpuscular Hemoglobin 27pg (25-35) Mean Corpuscular Hemoglobin Concent 31g/dL (31-37) Red Cell Distribution Width 16.7% (11.5-14.5) Platelet Count 131x10^3/uL (140-400) Neutrophils (%) (Auto) 85% (31-73) Lymphocytes (%) (Auto) 7% (24-48) Monocytes (%) (Auto) 7% (0-9) Eosinophils (%) (Auto) 1% (0-3) Basophils (%) (Auto) 0% (0-3) Neutrophils # (Auto) 9.1x10^3uL (1.8-7.7) Lymphocytes # (Auto) 0.8x10^3/uL (1.0-4.8) Monocytes # (Auto) 0.8x10^3/uL (0.0-1.1) Eosinophils # (Auto) 0.1x10^3/uL (0.0-0.7) Basophils # (Auto) 0.0x10^3/uL (0.0-0.2) Sodium Level 140mmol/L (136-145) Potassium Level 4.1mmol/L (3.5-5.1) Chloride Level 103mmol/L (98-107) Carbon Dioxide Level 23mmol/L (21-32) Anion Gap 14 (6-14) Blood Urea Nitrogen 58mg/dL (7-20) Creatinine 6.1mg/dL (0.6-1.0) Estimated GFR (Cockcroft-Gault) 7.0 Glucose Level 135mg/dL (70-99) Calcium Level 7.9mg/dL (8.5-10.1) Glucose (Fingerstick) 129mg/dL (70-99) Objective Assessment Sepsis Encephalopathy BC positive ESRD Obesity Plan Plan of Care [facility] supportive care d/c HD cath d/w dr Brito d/w LAY [place] MD Jul 07, 2016 11:12
--- NOTE | 2016-07-07 11:20 | PDOC ---
Renal-Progress Notes Subjective Notes Notes NO NEW COMPLAINTS History of Present Illness Hx of present illness BETTER Vitals Vitals Vital Signs Date Time Temp Pulse Resp B/P Pulse Ox O2 Delivery O2 Flow Rate FiO2 07/07/16 07:30 Nasal Cannula 3.0 07/07/16 07:00 98.4 69 16 103/46 96 98.4 Weight Weight [ ] I.O. Intake and Output Intake and Output 07/07/16 07:00 Intake Total 1560 ml Output Total 0 ml Balance 1560 ml Intake Oral 960 ml IV Total 600 ml Output Urine Total 0 ml Labs Labs Laboratory Tests Test 07/06/16 12:54 07/06/16 13:00 07/06/16 13:10 07/06/16 17:15 Urine Collection Type Unknown Urine Color Beena Urine Clarity Cloudy Urine pH 5.0 Urine Specific [place] 1.020 Urine Protein >=300mg/dL (NEG-TRACE) Urine Glucose (UA) Negativemg/dL (NEG) Urine Ketones (Stick) Tracemg/dL (NEG) Urine Blood Large (NEG) Urine Nitrite Negative (NEG) Urine Bilirubin Moderate (NEG) Urine Urobilinogen Dipstick 1.0mg/dL (0.2 mg/dL) Urine Leukocyte Esterase Moderate (NEG) Urine RBC 1-2/HPF (0-2) Urine WBC >40/HPF (0-4) Urine Squamous Epithelial Cells Occ/LPF Urine Bacteria Many/HPF (0-FEW) Prothrombin Time 17.5SEC (11.7-14.0) Prothromb Time International Ratio 1.5 (0.8-1.1) Activated Partial Thromboplast Time 30SEC (24-38) Sodium Level 141mmol/L (136-145) Potassium Level 4.8mmol/L (3.5-5.1) Chloride Level 104mmol/L (98-107) Carbon Dioxide Level 21mmol/L (21-32) Anion Gap 16 (6-14) Blood Urea Nitrogen 105mg/dL (7-20) Creatinine 9.9mg/dL (0.6-1.0) Estimated GFR (Cockcroft-Gault) 4.0 BUN/Creatinine Ratio 11 (6-20) Glucose Level 135mg/dL (70-99) Calcium Level 7.8mg/dL (8.5-10.1) Total Bilirubin 1.0mg/dL (0.2-1.0) Aspartate Amino Transf (AST/SGOT) 56U/L (15-37) Alanine Aminotransferase (ALT/SGPT) 46U/L (14-59) Alkaline Phosphatase 169U/L (46-116) Troponin I Quantitative < 0.017ng/mL (0.000-0.055) WE-Zgc-F-Type Natriuretic Peptide > 86640gt/mL (0-124) Total Protein 7.5g/dL (6.4-8.2) Albumin 2.0g/dL (3.4-5.0) Albumin/Globulin Ratio 0.4 (1.0-1.7) White Blood Count 12.4x10^3/uL (4.0-11.0) Red Blood Count 4.02x10^6/uL (3.50-5.40) Hemoglobin 10.7g/dL (12.0-15.5) Hematocrit 33.6% (36.0-47.0) Mean Corpuscular Volume 84fL (79-100) Mean Corpuscular Hemoglobin 27pg (25-35) Mean Corpuscular Hemoglobin Concent 32g/dL (31-37) Red Cell Distribution Width 17.0% (11.5-14.5) Platelet Count 174x10^3/uL (140-400) Neutrophils (%) (Auto) 90% (31-73) Lymphocytes (%) (Auto) 6% (24-48) Monocytes (%) (Auto) 4% (0-9) Eosinophils (%) (Auto) 0% (0-3) Basophils (%) (Auto) 1% (0-3) Neutrophils # (Auto) 11.2x10^3uL (1.8-7.7) Lymphocytes # (Auto) 0.7x10^3/uL (1.0-4.8) Monocytes # (Auto) 0.5x10^3/uL (0.0-1.1) Eosinophils # (Auto) 0.0x10^3/uL (0.0-0.7) Basophils # (Auto) 0.1x10^3/uL (0.0-0.2) Segmented Neutrophils % 85% (35-66) Band Neutrophils % 2% (0-9) Lymphocytes % 11% (24-48) Monocytes % 2% (0-10) Toxic Granulation Slight Platelet Estimate Adequate (ADEQUATE) Hypochromasia Slight Anisocytosis Slight Lactic Acid Level 1.4mmol/L (0.4-2.0) Glucose (Fingerstick) 160mg/dL (70-99) Test 07/07/16 06:40 07/07/16 08:05 White Blood Count 10.8x10^3/uL (4.0-11.0) Red Blood Count 3.74x10^6/uL (3.50-5.40) Hemoglobin 10.0g/dL (12.0-15.5) Hematocrit 31.7% (36.0-47.0) Mean Corpuscular Volume 85fL (79-100) Mean Corpuscular Hemoglobin 27pg (25-35) Mean Corpuscular Hemoglobin Concent 31g/dL (31-37) Red Cell Distribution Width 16.7% (11.5-14.5) Platelet Count 131x10^3/uL (140-400) Neutrophils (%) (Auto) 85% (31-73) Lymphocytes (%) (Auto) 7% (24-48) Monocytes (%) (Auto) 7% (0-9) Eosinophils (%) (Auto) 1% (0-3) Basophils (%) (Auto) 0% (0-3) Neutrophils # (Auto) 9.1x10^3uL (1.8-7.7) Lymphocytes # (Auto) 0.8x10^3/uL (1.0-4.8) Monocytes # (Auto) 0.8x10^3/uL (0.0-1.1) Eosinophils # (Auto) 0.1x10^3/uL (0.0-0.7) Basophils # (Auto) 0.0x10^3/uL (0.0-0.2) Sodium Level 140mmol/L (136-145) Potassium Level 4.1mmol/L (3.5-5.1) Chloride Level 103mmol/L (98-107) Carbon Dioxide Level 23mmol/L (21-32) Anion Gap 14 (6-14) Blood Urea Nitrogen 58mg/dL (7-20) Creatinine 6.1mg/dL (0.6-1.0) Estimated GFR (Cockcroft-Gault) 7.0 Glucose Level 135mg/dL (70-99) Calcium Level 7.9mg/dL (8.5-10.1) Glucose (Fingerstick) 129mg/dL (70-99) Micro Micro Microbiology 07/06/16 Blood Culture - Final, Complete 07/06/16 Gram Stain - Final, Complete Review of Systems Constitutional: yes: alert, weakness Ears/Nose/Throat: Yes: no symptom reported Eyes: Yes: no symptom reported Pulmonary: Yes dyspnea Cardiovascular: Yes no symptom reported Musculoskeletal: Yes: muscle stiffness Skin: Yes no symptom reported Physical Exam General Appearance: no apparent distress Skin: warm Respiratory: decreased breath sounds Heart: S1S2, RRR Neurology: alert, oriented Assessment Assessment IMP ESRD PROB LINE INFECTION ANEMIA HYPERVOLEMIA PLAN ANTIBIOTICS WILL HAVE IR REMOVE DIALYSIS CATHETER WILL HAVE COUPLE DAYS WITHOUT CATHETER D/W ID MELITON SÁNCHEZ MD Jul 07, 2016 11:20
--- NOTE | 2016-07-07 11:47 | PDOC ---
G I PROGRESS NOTE Subjective Pretty "wiped out" from dialysis last night. Drowsy. Says diarrhea about the same (though no stools charted). Physical Exam Lungs clear. RRR Abdomen soft, not apparently tender. Active bowel sounds. Review of Relevant I have reviewed the following items dominga (where applicable) has been applied. Labs Laboratory Tests Test 07/06/16 12:54 07/06/16 13:00 07/06/16 13:10 07/06/16 17:15 Urine Collection Type Unknown Urine Color Beena Urine Clarity Cloudy Urine pH 5.0 Urine Specific Edmondson 1.020 Urine Protein >=300mg/dL (NEG-TRACE) Urine Glucose (UA) Negativemg/dL (NEG) Urine Ketones (Stick) Tracemg/dL (NEG) Urine Blood Large (NEG) Urine Nitrite Negative (NEG) Urine Bilirubin Moderate (NEG) Urine Urobilinogen Dipstick 1.0mg/dL (0.2 mg/dL) Urine Leukocyte Esterase Moderate (NEG) Urine RBC 1-2/HPF (0-2) Urine WBC >40/HPF (0-4) Urine Squamous Epithelial Cells Occ/LPF Urine Bacteria Many/HPF (0-FEW) Prothrombin Time 17.5SEC (11.7-14.0) Prothromb Time International Ratio 1.5 (0.8-1.1) Activated Partial Thromboplast Time 30SEC (24-38) Sodium Level 141mmol/L (136-145) Potassium Level 4.8mmol/L (3.5-5.1) Chloride Level 104mmol/L (98-107) Carbon Dioxide Level 21mmol/L (21-32) Anion Gap 16 (6-14) Blood Urea Nitrogen 105mg/dL (7-20) Creatinine 9.9mg/dL (0.6-1.0) Estimated GFR (Cockcroft-Gault) 4.0 BUN/Creatinine Ratio 11 (6-20) Glucose Level 135mg/dL (70-99) Calcium Level 7.8mg/dL (8.5-10.1) Total Bilirubin 1.0mg/dL (0.2-1.0) Aspartate Amino Transf (AST/SGOT) 56U/L (15-37) Alanine Aminotransferase (ALT/SGPT) 46U/L (14-59) Alkaline Phosphatase 169U/L (46-116) Troponin I Quantitative < 0.017ng/mL (0.000-0.055) OM-Zlo-A-Type Natriuretic Peptide > 35215ss/mL (0-124) Total Protein 7.5g/dL (6.4-8.2) Albumin 2.0g/dL (3.4-5.0) Albumin/Globulin Ratio 0.4 (1.0-1.7) White Blood Count 12.4x10^3/uL (4.0-11.0) Red Blood Count 4.02x10^6/uL (3.50-5.40) Hemoglobin 10.7g/dL (12.0-15.5) Hematocrit 33.6% (36.0-47.0) Mean Corpuscular Volume 84fL (79-100) Mean Corpuscular Hemoglobin 27pg (25-35) Mean Corpuscular Hemoglobin Concent 32g/dL (31-37) Red Cell Distribution Width 17.0% (11.5-14.5) Platelet Count 174x10^3/uL (140-400) Neutrophils (%) (Auto) 90% (31-73) Lymphocytes (%) (Auto) 6% (24-48) Monocytes (%) (Auto) 4% (0-9) Eosinophils (%) (Auto) 0% (0-3) Basophils (%) (Auto) 1% (0-3) Neutrophils # (Auto) 11.2x10^3uL (1.8-7.7) Lymphocytes # (Auto) 0.7x10^3/uL (1.0-4.8) Monocytes # (Auto) 0.5x10^3/uL (0.0-1.1) Eosinophils # (Auto) 0.0x10^3/uL (0.0-0.7) Basophils # (Auto) 0.1x10^3/uL (0.0-0.2) Segmented Neutrophils % 85% (35-66) Band Neutrophils % 2% (0-9) Lymphocytes % 11% (24-48) Monocytes % 2% (0-10) Toxic Granulation Slight Platelet Estimate Adequate (ADEQUATE) Hypochromasia Slight Anisocytosis Slight Lactic Acid Level 1.4mmol/L (0.4-2.0) Glucose (Fingerstick) 160mg/dL (70-99) Test 07/07/16 06:40 07/07/16 08:05 White Blood Count 10.8x10^3/uL (4.0-11.0) Red Blood Count 3.74x10^6/uL (3.50-5.40) Hemoglobin 10.0g/dL (12.0-15.5) Hematocrit 31.7% (36.0-47.0) Mean Corpuscular Volume 85fL (79-100) Mean Corpuscular Hemoglobin 27pg (25-35) Mean Corpuscular Hemoglobin Concent 31g/dL (31-37) Red Cell Distribution Width 16.7% (11.5-14.5) Platelet Count 131x10^3/uL (140-400) Neutrophils (%) (Auto) 85% (31-73) Lymphocytes (%) (Auto) 7% (24-48) Monocytes (%) (Auto) 7% (0-9) Eosinophils (%) (Auto) 1% (0-3) Basophils (%) (Auto) 0% (0-3) Neutrophils # (Auto) 9.1x10^3uL (1.8-7.7) Lymphocytes # (Auto) 0.8x10^3/uL (1.0-4.8) Monocytes # (Auto) 0.8x10^3/uL (0.0-1.1) Eosinophils # (Auto) 0.1x10^3/uL (0.0-0.7) Basophils # (Auto) 0.0x10^3/uL (0.0-0.2) Sodium Level 140mmol/L (136-145) Potassium Level 4.1mmol/L (3.5-5.1) Chloride Level 103mmol/L (98-107) Carbon Dioxide Level 23mmol/L (21-32) Anion Gap 14 (6-14) Blood Urea Nitrogen 58mg/dL (7-20) Creatinine 6.1mg/dL (0.6-1.0) Estimated GFR (Cockcroft-Gault) 7.0 Glucose Level 135mg/dL (70-99) Calcium Level 7.9mg/dL (8.5-10.1) Glucose (Fingerstick) 129mg/dL (70-99) Laboratory Tests Test 07/06/16 12:54 07/06/16 13:00 07/06/16 13:10 07/06/16 17:15 Urine Collection Type Unknown Urine Color Beena Urine Clarity Cloudy Urine pH 5.0 Urine Specific Edmondson 1.020 Urine Protein >=300mg/dL (NEG-TRACE) Urine Glucose (UA) Negativemg/dL (NEG) Urine Ketones (Stick) Tracemg/dL (NEG) Urine Blood Large (NEG) Urine Nitrite Negative (NEG) Urine Bilirubin Moderate (NEG) Urine Urobilinogen Dipstick 1.0mg/dL (0.2 mg/dL) Urine Leukocyte Esterase Moderate (NEG) Urine RBC 1-2/HPF (0-2) Urine WBC >40/HPF (0-4) Urine Squamous Epithelial Cells Occ/LPF Urine Bacteria Many/HPF (0-FEW) Prothrombin Time 17.5SEC (11.7-14.0) Prothromb Time International Ratio 1.5 (0.8-1.1) Activated Partial Thromboplast Time 30SEC (24-38) Sodium Level 141mmol/L (136-145) Potassium Level 4.8mmol/L (3.5-5.1) Chloride Level 104mmol/L (98-107) Carbon Dioxide Level 21mmol/L (21-32) Anion Gap 16 (6-14) Blood Urea Nitrogen 105mg/dL (7-20) Creatinine 9.9mg/dL (0.6-1.0) Estimated GFR (Cockcroft-Gault) 4.0 BUN/Creatinine Ratio 11 (6-20) Glucose Level 135mg/dL (70-99) Calcium Level 7.8mg/dL (8.5-10.1) Total Bilirubin 1.0mg/dL (0.2-1.0) Aspartate Amino Transf (AST/SGOT) 56U/L (15-37) Alanine Aminotransferase (ALT/SGPT) 46U/L (14-59) Alkaline Phosphatase 169U/L (46-116) Troponin I Quantitative < 0.017ng/mL (0.000-0.055) DI-Pxj-E-Type Natriuretic Peptide > 49897tn/mL (0-124) Total Protein 7.5g/dL (6.4-8.2) Albumin 2.0g/dL (3.4-5.0) Albumin/Globulin Ratio 0.4 (1.0-1.7) White Blood Count 12.4x10^3/uL (4.0-11.0) Red Blood Count 4.02x10^6/uL (3.50-5.40) Hemoglobin 10.7g/dL (12.0-15.5) Hematocrit 33.6% (36.0-47.0) Mean Corpuscular Volume 84fL (79-100) Mean Corpuscular Hemoglobin 27pg (25-35) Mean Corpuscular Hemoglobin Concent 32g/dL (31-37) Red Cell Distribution Width 17.0% (11.5-14.5) Platelet Count 174x10^3/uL (140-400) Neutrophils (%) (Auto) 90% (31-73) Lymphocytes (%) (Auto) 6% (24-48) Monocytes (%) (Auto) 4% (0-9) Eosinophils (%) (Auto) 0% (0-3) Basophils (%) (Auto) 1% (0-3) Neutrophils # (Auto) 11.2x10^3uL (1.8-7.7) Lymphocytes # (Auto) 0.7x10^3/uL (1.0-4.8) Monocytes # (Auto) 0.5x10^3/uL (0.0-1.1) Eosinophils # (Auto) 0.0x10^3/uL (0.0-0.7) Basophils # (Auto) 0.1x10^3/uL (0.0-0.2) Segmented Neutrophils % 85% (35-66) Band Neutrophils % 2% (0-9) Lymphocytes % 11% (24-48) Monocytes % 2% (0-10) Toxic Granulation Slight Platelet Estimate Adequate (ADEQUATE) Hypochromasia Slight Anisocytosis Slight Lactic Acid Level 1.4mmol/L (0.4-2.0) Glucose (Fingerstick) 160mg/dL (70-99) Test 07/07/16 06:40 07/07/16 08:05 White Blood Count 10.8x10^3/uL (4.0-11.0) Red Blood Count 3.74x10^6/uL (3.50-5.40) Hemoglobin 10.0g/dL (12.0-15.5) Hematocrit 31.7% (36.0-47.0) Mean Corpuscular Volume 85fL (79-100) Mean Corpuscular Hemoglobin 27pg (25-35) Mean Corpuscular Hemoglobin Concent 31g/dL (31-37) Red Cell Distribution Width 16.7% (11.5-14.5) Platelet Count 131x10^3/uL (140-400) Neutrophils (%) (Auto) 85% (31-73) Lymphocytes (%) (Auto) 7% (24-48) Monocytes (%) (Auto) 7% (0-9) Eosinophils (%) (Auto) 1% (0-3) Basophils (%) (Auto) 0% (0-3) Neutrophils # (Auto) 9.1x10^3uL (1.8-7.7) Lymphocytes # (Auto) 0.8x10^3/uL (1.0-4.8) Monocytes # (Auto) 0.8x10^3/uL (0.0-1.1) Eosinophils # (Auto) 0.1x10^3/uL (0.0-0.7) Basophils # (Auto) 0.0x10^3/uL (0.0-0.2) Sodium Level 140mmol/L (136-145) Potassium Level 4.1mmol/L (3.5-5.1) Chloride Level 103mmol/L (98-107) Carbon Dioxide Level 23mmol/L (21-32) Anion Gap 14 (6-14) Blood Urea Nitrogen 58mg/dL (7-20) Creatinine 6.1mg/dL (0.6-1.0) Estimated GFR (Cockcroft-Gault) 7.0 Glucose Level 135mg/dL (70-99) Calcium Level 7.9mg/dL (8.5-10.1) Glucose (Fingerstick) 129mg/dL (70-99) Microbiology 07/06/16 Blood Culture - Final, Complete 07/06/16 Gram Stain - Final, Complete Stool studies and urine culture pending. Medications Current Medications Sodium Chloride (Iv Sodium Chloride 0.9% 500ml Bag) 500 ml @ 1,000 mls/hr 1X ONCE IV Last administered on 07/06/16t 13:33; Start 07/06/16 at 12:45; Stop 01/12 at 13:14; Status DC Ondansetron HCl (Zofran) 4 mg 1X ONCE IV Last administered on 07/06/16 13:33 ; Start 07/06/16 at 12:45; Stop 07/06/16 at 12:46; Status DC Vancomycin HCl (Vanco Per Pharmacy) 1 each PRN DAILY PRN MC SEE COMMENTS Last administered on 07/06/16 15:57; Start 07/06/16 at 14:00 Piperacillin Sod/ Tazobactam Sod (Zosyn Per Pharmacy) 1 each PRN DAILY PRN MC SEE COMMENTS; Start 07/06/16 at 14:00 Levofloxacin/ Dextrose 1 each 1 each PRN DAILY PRN MC SEE COMMENTS; Start 07/06 at 14:00 Vancomycin HCl/ Sodium Chloride (Iv Sodium Chloride 0.9% 500ml Bag) 500 ml @ 250 mls/hr 1X ONCE IV Last administered on 07/06/16 15:03; Start 07/06/16 at 14:15; Stop 07/06/16 at 16:14; Status DC Ondansetron HCl (Zofran) 4 mg PRN Q8HRS PRN IV NAUSEA/VOMITING; Start 07/06/16 at 14:30; Stop 07/07/16 at 14:29 Morphine Sulfate 2 mg PRN Q2HR PRN IV PAIN; Start 07/06/16 at 14:30; Stop 07/07 at 14:29 Acetaminophen 650 mg 650 mg PRN Q4HRS PRN PO FEVER Last administered on 05:17; Start 07/06/16 at 14:30; Stop 07/07/16 at 14:29 Piperacillin Sod/ Tazobactam Sod 2.25 gm/Sodium Chloride 50 ml @ 100 mls/hr Q8HRS IV Last administered on 07/07/16 05:06; Start 07/06/16 at 15:00 Levofloxacin/ Dextrose (LEVAQUIN 500mg PREMIX) 100 ml @ 100 mls/hr Q48H IV Last administered on 07/06/16 17:36; Start 07/06/16 at 15:00 Darbepoetin Naif 60 mcg 60 mcg WEEKLYHS SQ Last administered on 07/06/16 19:31 ; Start 07/06/16 at 21:00 Sodium Chloride (Iv Sodium Chloride 0.9% 1000ml Bag) 1,000 ml @ 1,000 mls/hr Q1H PRN IV hypotension; Start 07/06/16 at 23:29; Stop 07/07/16 at 05:28; Status DC Sodium Chloride (Normal Saline Flush) 10 ml 1X PRN PRN IV AP catheter pack; Start 07/06/16 at 23:30; Stop 07/07/16 at 23:29 Sodium Chloride (Normal Saline Flush) 10 ml 1X PRN PRN IV [employer] catheter pack; Start 07/06/16 at 23:30; Stop 07/07/16 at 23:29 Info (PHARMACY MONITORING -- do not chart) 1 each PRN DAILY PRN MC SEE COMMENTS ; Start 07/06/16 at 23:30 Info 1 each 1 each PRN DAILY PRN MC SEE COMMENTS; Start 07/06/16 at 23:30 Vancomycin HCl/ Sodium Chloride (Iv Sodium Chloride 0.9% 250ml) 250 ml @ 250 mls/hr 1X ONCE IV Last administered on 07/07/16 06:36; Start 07/07/16 at 06: 30; Stop 07/07/16 at 07:29; Status DC Active Scripts Active Reported Amiodarone Hcl 200 Mg Tablet 200 Mg PO BID Aspir 81 (Aspirin) 81 Mg Tablet.dr 81 Mg PO DAILY Atorvastatin Calcium 20 Mg Tablet 20 Mg PO HS Cardizem Cd (Diltiazem Hcl) 360 Mg Cap.er.24h 360 Mg PO DAILY Docusate Sodium 100 Mg Capsule 100 Mg PO BID Melatonin 3 Mg Tablet 9 Mg PO DAILY Polyethylene Glycol 3350 17 Gm Powd.pack 17 Gm PO DAILY Senna (Sennosides) 8.6 Mg Tablet 8.6 Mg PO DAILY Clonidine Hcl 0.2 Mg Tablet 0.2 Mg PO DAILY Micro-Guard (Miconazole Nitrate) 85 Gm Powder 85 Gm TP BID Humalog (Insulin Lispro) 100 Unit/1 Ml Vial 100 Unit SQ Buspirone Hcl 5 Mg Tablet 5 Mg PO TID Aranesp Vial (Darbepoetin Naif In Polysorbat) 100 Mcg/1 Ml Vial 100 Mcg SQ WEEKLY Nephron Fa Tablet (Fe Fumarate/Dinorah/Fa/Bcomp&C) 1 Each Tablet 1 Each PO DAILY Ferrous Sulfate 325 Mg Tablet 1 Tab PO DAILY Escitalopram Oxalate 20 Mg Tablet 20 Mg PO DAILY Duoneb 0.5-3(2.5) Mg/3 Ml (Albuterol/Ipratropium) 3 Ml Ampul.neb 3 Ml NEB QID PRN Gabapentin 600 Mg Tablet 600 Mg PO BID Mirtazapine 7.5 Mg Tablet 7.5 Mg PO DAILY Abilify (Aripiprazole) 2 Mg Tablet 2.5 Mg PO DAILY Labetalol Hcl 5 Mg/1 Ml Vial 10 Mg IV PRN Heparin Sod 5,000 Unit/ 0.5 Ml (Heparin Sodium,Porcine/Pf) 5,000 Unit/0.5 Ml Vial 5,000 Unit IJ TID Novolin N (Nph, Human Insulin Isophane) 100 Unit/1 Ml Vial 100 Unit SQ PRN Vitals/I & O Vital Sign - Last 24 Hours 07/06/16 07/06/16 07/06/16 07/06/16 12:15 13:30 13:36 13:56 Temp 100.4 100.4 Pulse 95 82 82 Resp 20 B/P 105/42 101/46 119/51 Pulse Ox 88 92 98 O2 Delivery Room Air Nasal Cannula Nasal Cannula O2 Flow Rate 3 3 07/06/16 07/06/16 07/06/16 07/06/16 14:16 14:36 16:30 16:38 Temp 98.7 98.7 Pulse 84 82 87 Resp 20 B/P 119/49 118/51 104/36 Pulse Ox 99 99 97 O2 Delivery Nasal Cannula Nasal Cannula Nasal Cannula Nasal Cannula O2 Flow Rate 3 3 3.0 3.0 07/06/16 07/06/16 07/07/16 07/07/16 19:30 19:46 00:30 03:00 Temp 98.3 100.0 102.0 98.3 100.0 102.0 Pulse 87 88 89 Resp 20 B/P 126/44 116/50 128/47 Pulse Ox 97 93 91 O2 Delivery Nasal Cannula Nasal Cannula Nasal Cannula Nasal Cannula O2 Flow Rate 3.0 3.0 3.0 3.0 07/07/16 07/07/16 07/07/16 07/07/16 07:00 07:30 07:30 11:00 Temp 98.4 98.2 98.4 98.2 Pulse 69 88 Resp 16 B/P 103/46 109/38 Pulse Ox 96 98 O2 Delivery Room Air Nasal Cannula Nasal Cannula Room Air O2 Flow Rate 3.0 3.0 Intake and Output 07/06/16 07/06/16 07/07/16 15:00 23:00 07:00 Intake Total 500 ml 940 ml 120 ml Output Total 0 ml Balance 500 ml 940 ml 120 ml Problem List Problems Medical Problems: (1) Anemia Status: Acute (2) End stage renal disease Status: Acute (3) Generalized weakness Status: Acute (4) Healthcare-associated pneumonia Status: Acute (5) Sepsis Status: Acute (6) Transient hypotension Status: Acute (7) Urinary tract infection Status: Acute Assessment Diarrhea. Awaiting stool studies to characterize. UTI, urosepsis? Plan of Care: Continue current Tx, Mgmt Plan of Care Note Await pending studies. JOSE MANUEL VASQUEZ MD Jul 07, 2016 11:47
[2016-07-07] MEDS: VANCOMYCIN PER PHARMACY MC PRN (13:17)
--- NOTE | 2016-07-07 13:28 | PDOC ---
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 She was oriented x1. Upon inspection, a fungal infection is suspected and will be treated accordingly. She has a swollen, erythematous, and warm left ankle. Vitals Vitals Vital Signs Date Time Temp Pulse Resp B/P Pulse Ox O2 Delivery O2 Flow Rate FiO2 07/07/16 11:00 98.2 88 16 109/38 98 Room Air 98.2 07/07/16 07:30 3.0 Physical Exam General: No acute distress, Other (Oriented x1) Heart: Regular rate, Normal S1, Normal S2 Lungs: Clear, Other (No chest retractions) Abdomen: Soft, No masses Extremities: No clubbing, No cyanosis Skin: No rashes, No breakdown Labs LABS Laboratory Tests Test 07/06/16 17:15 07/07/16 06:40 07/07/16 08:05 07/07/16 12:02 Glucose (Fingerstick) 160mg/dL (70-99) 129mg/dL (70-99) 135mg/dL (70-99) White Blood Count 10.8x10^3/uL (4.0-11.0) Red Blood Count 3.74x10^6/uL (3.50-5.40) Hemoglobin 10.0g/dL (12.0-15.5) Hematocrit 31.7% (36.0-47.0) Mean Corpuscular Volume 85fL (79-100) Mean Corpuscular Hemoglobin 27pg (25-35) Mean Corpuscular Hemoglobin Concent 31g/dL (31-37) Red Cell Distribution Width 16.7% (11.5-14.5) Platelet Count 131x10^3/uL (140-400) Neutrophils (%) (Auto) 85% (31-73) Lymphocytes (%) (Auto) 7% (24-48) Monocytes (%) (Auto) 7% (0-9) Eosinophils (%) (Auto) 1% (0-3) Basophils (%) (Auto) 0% (0-3) Neutrophils # (Auto) 9.1x10^3uL (1.8-7.7) Lymphocytes # (Auto) 0.8x10^3/uL (1.0-4.8) Monocytes # (Auto) 0.8x10^3/uL (0.0-1.1) Eosinophils # (Auto) 0.1x10^3/uL (0.0-0.7) Basophils # (Auto) 0.0x10^3/uL (0.0-0.2) Sodium Level 140mmol/L (136-145) Potassium Level 4.1mmol/L (3.5-5.1) Chloride Level 103mmol/L (98-107) Carbon Dioxide Level 23mmol/L (21-32) Anion Gap 14 (6-14) Blood Urea Nitrogen 58mg/dL (7-20) Creatinine 6.1mg/dL (0.6-1.0) Estimated GFR (Cockcroft-Gault) 7.0 Glucose Level 135mg/dL (70-99) Calcium Level 7.9mg/dL (8.5-10.1) Random Vancomycin Level 22.0mcg/mL Review of Systems Review of Systems The patient has not had symptoms of nausea or vomiting. She is not able to ambulate well. Assessment and Plan Assessmemt and Plan Problems Medical Problems: (1) Anemia Status: Acute (2) End stage renal disease Status: Acute (3) Generalized weakness Status: Acute (4) Healthcare-associated pneumonia Status: Acute (5) Sepsis Status: Acute (6) Transient hypotension Status: Acute (7) Urinary tract infection Status: Acute Assessment: Ms. Rogers is a 60 year old female that presented with a 5 day history of diarrhea. 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 Nystatin powder for suspected epidermal fungal infection 2. Recheck labs 3. Continue home medications 4. Continue antibiotics 5. Continue hematopoietic medication 6. PT/OT 7. Appreciate consultation from pulmonology, nephrology, GI, and ID Problems: Comment Review of Relevant I have reviewed the following items dominga (where applicable) has been applied. Labs Laboratory Tests Test 07/06/16 12:54 07/06/16 13:00 07/06/16 13:10 07/06/16 17:15 Urine Collection Type Unknown Urine Color Beena Urine Clarity Cloudy Urine pH 5.0 Urine Specific [place] 1.020 Urine Protein >=300mg/dL (NEG-TRACE) Urine Glucose (UA) Negativemg/dL (NEG) Urine Ketones (Stick) Tracemg/dL (NEG) Urine Blood Large (NEG) Urine Nitrite Negative (NEG) Urine Bilirubin Moderate (NEG) Urine Urobilinogen Dipstick 1.0mg/dL (0.2 mg/dL) Urine Leukocyte Esterase Moderate (NEG) Urine RBC 1-2/HPF (0-2) Urine WBC >40/HPF (0-4) Urine Squamous Epithelial Cells Occ/LPF Urine Bacteria Many/HPF (0-FEW) Prothrombin Time 17.5SEC (11.7-14.0) Prothromb Time International Ratio 1.5 (0.8-1.1) Activated Partial Thromboplast Time 30SEC (24-38) Sodium Level 141mmol/L (136-145) Potassium Level 4.8mmol/L (3.5-5.1) Chloride Level 104mmol/L (98-107) Carbon Dioxide Level 21mmol/L (21-32) Anion Gap 16 (6-14) Blood Urea Nitrogen 105mg/dL (7-20) Creatinine 9.9mg/dL (0.6-1.0) Estimated GFR (Cockcroft-Gault) 4.0 BUN/Creatinine Ratio 11 (6-20) Glucose Level 135mg/dL (70-99) Calcium Level 7.8mg/dL (8.5-10.1) Total Bilirubin 1.0mg/dL (0.2-1.0) Aspartate Amino Transf (AST/SGOT) 56U/L (15-37) Alanine Aminotransferase (ALT/SGPT) 46U/L (14-59) Alkaline Phosphatase 169U/L (46-116) Troponin I Quantitative < 0.017ng/mL (0.000-0.055) LS-Zeb-D-Type Natriuretic Peptide > 36880rm/mL (0-124) Total Protein 7.5g/dL (6.4-8.2) Albumin 2.0g/dL (3.4-5.0) Albumin/Globulin Ratio 0.4 (1.0-1.7) White Blood Count 12.4x10^3/uL (4.0-11.0) Red Blood Count 4.02x10^6/uL (3.50-5.40) Hemoglobin 10.7g/dL (12.0-15.5) Hematocrit 33.6% (36.0-47.0) Mean Corpuscular Volume 84fL (79-100) Mean Corpuscular Hemoglobin 27pg (25-35) Mean Corpuscular Hemoglobin Concent 32g/dL (31-37) Red Cell Distribution Width 17.0% (11.5-14.5) Platelet Count 174x10^3/uL (140-400) Neutrophils (%) (Auto) 90% (31-73) Lymphocytes (%) (Auto) 6% (24-48) Monocytes (%) (Auto) 4% (0-9) Eosinophils (%) (Auto) 0% (0-3) Basophils (%) (Auto) 1% (0-3) Neutrophils # (Auto) 11.2x10^3uL (1.8-7.7) Lymphocytes # (Auto) 0.7x10^3/uL (1.0-4.8) Monocytes # (Auto) 0.5x10^3/uL (0.0-1.1) Eosinophils # (Auto) 0.0x10^3/uL (0.0-0.7) Basophils # (Auto) 0.1x10^3/uL (0.0-0.2) Segmented Neutrophils % 85% (35-66) Band Neutrophils % 2% (0-9) Lymphocytes % 11% (24-48) Monocytes % 2% (0-10) Toxic Granulation Slight Platelet Estimate Adequate (ADEQUATE) Hypochromasia Slight Anisocytosis Slight Lactic Acid Level 1.4mmol/L (0.4-2.0) Glucose (Fingerstick) 160mg/dL (70-99) Test 07/07/16 06:40 07/07/16 08:05 07/07/16 12:02 White Blood Count 10.8x10^3/uL (4.0-11.0) Red Blood Count 3.74x10^6/uL (3.50-5.40) Hemoglobin 10.0g/dL (12.0-15.5) Hematocrit 31.7% (36.0-47.0) Mean Corpuscular Volume 85fL (79-100) Mean Corpuscular Hemoglobin 27pg (25-35) Mean Corpuscular Hemoglobin Concent 31g/dL (31-37) Red Cell Distribution Width 16.7% (11.5-14.5) Platelet Count 131x10^3/uL (140-400) Neutrophils (%) (Auto) 85% (31-73) Lymphocytes (%) (Auto) 7% (24-48) Monocytes (%) (Auto) 7% (0-9) Eosinophils (%) (Auto) 1% (0-3) Basophils (%) (Auto) 0% (0-3) Neutrophils # (Auto) 9.1x10^3uL (1.8-7.7) Lymphocytes # (Auto) 0.8x10^3/uL (1.0-4.8) Monocytes # (Auto) 0.8x10^3/uL (0.0-1.1) Eosinophils # (Auto) 0.1x10^3/uL (0.0-0.7) Basophils # (Auto) 0.0x10^3/uL (0.0-0.2) Sodium Level 140mmol/L (136-145) Potassium Level 4.1mmol/L (3.5-5.1) Chloride Level 103mmol/L (98-107) Carbon Dioxide Level 23mmol/L (21-32) Anion Gap 14 (6-14) Blood Urea Nitrogen 58mg/dL (7-20) Creatinine 6.1mg/dL (0.6-1.0) Estimated GFR (Cockcroft-Gault) 7.0 Glucose Level 135mg/dL (70-99) Calcium Level 7.9mg/dL (8.5-10.1) Random Vancomycin Level 22.0mcg/mL Glucose (Fingerstick) 129mg/dL (70-99) 135mg/dL (70-99) Laboratory Tests Test 07/06/16 17:15 07/07/16 06:40 07/07/16 08:05 07/07/16 12:02 Glucose (Fingerstick) 160mg/dL (70-99) 129mg/dL (70-99) 135mg/dL (70-99) White Blood Count 10.8x10^3/uL (4.0-11.0) Red Blood Count 3.74x10^6/uL (3.50-5.40) Hemoglobin 10.0g/dL (12.0-15.5) Hematocrit 31.7% (36.0-47.0) Mean Corpuscular Volume 85fL (79-100) Mean Corpuscular Hemoglobin 27pg (25-35) Mean Corpuscular Hemoglobin Concent 31g/dL (31-37) Red Cell Distribution Width 16.7% (11.5-14.5) Platelet Count 131x10^3/uL (140-400) Neutrophils (%) (Auto) 85% (31-73) Lymphocytes (%) (Auto) 7% (24-48) Monocytes (%) (Auto) 7% (0-9) Eosinophils (%) (Auto) 1% (0-3) Basophils (%) (Auto) 0% (0-3) Neutrophils # (Auto) 9.1x10^3uL (1.8-7.7) Lymphocytes # (Auto) 0.8x10^3/uL (1.0-4.8) Monocytes # (Auto) 0.8x10^3/uL (0.0-1.1) Eosinophils # (Auto) 0.1x10^3/uL (0.0-0.7) Basophils # (Auto) 0.0x10^3/uL (0.0-0.2) Sodium Level 140mmol/L (136-145) Potassium Level 4.1mmol/L (3.5-5.1) Chloride Level 103mmol/L (98-107) Carbon Dioxide Level 23mmol/L (21-32) Anion Gap 14 (6-14) Blood Urea Nitrogen 58mg/dL (7-20) Creatinine 6.1mg/dL (0.6-1.0) Estimated GFR (Cockcroft-Gault) 7.0 Glucose Level 135mg/dL (70-99) Calcium Level 7.9mg/dL (8.5-10.1) Random Vancomycin Level 22.0mcg/mL Microbiology 07/06/16 Blood Culture - Final, Complete 07/06/16 Gram Stain - Final, Complete Medications Current Medications Sodium Chloride (Iv Sodium Chloride 0.9% 500ml Bag) 500 ml @ 1,000 mls/hr 1X ONCE IV Last administered on 07/06/16 13:33; Start 07/06/16 at 12:45; Stop 01/12 at 13:14; Status DC Ondansetron HCl (Zofran) 4 mg 1X ONCE IV Last administered on 07/06/16 13:33 ; Start 07/06/16 at 12:45; Stop 07/06/16 at 12:46; Status DC Vancomycin HCl (Vanco Per Pharmacy) 1 each PRN DAILY PRN MC SEE COMMENTS Last administered on 07/07/16 13:17; Start 07/06/16 at 14:00 Piperacillin Sod/ Tazobactam Sod (Zosyn Per Pharmacy) 1 each PRN DAILY PRN MC SEE COMMENTS; Start 07/06/16 at 14:00 Levofloxacin/ Dextrose 1 each 1 each PRN DAILY PRN MC SEE COMMENTS; Start 07/06 at 14:00 Vancomycin HCl/ Sodium Chloride (Iv Sodium Chloride 0.9% 500ml Bag) 500 ml @ 250 mls/hr 1X ONCE IV Last administered on 07/06/16 15:03; Start 07/06/16 at 14:15; Stop 07/06/16 at 16:14; Status DC Ondansetron HCl (Zofran) 4 mg PRN Q8HRS PRN IV NAUSEA/VOMITING; Start 07/06/16 at 14:30; Stop 07/07/16 at 14:29 Morphine Sulfate 2 mg PRN Q2HR PRN IV PAIN; Start 07/06/16 at 14:30; Stop 07/07 at 14:29 Acetaminophen 650 mg 650 mg PRN Q4HRS PRN PO FEVER Last administered on 05:17; Start 07/06/16 at 14:30; Stop 07/07/16 at 14:29 Piperacillin Sod/ Tazobactam Sod 2.25 gm/Sodium Chloride 50 ml @ 100 mls/hr Q8HRS IV Last administered on 07/07/16 05:06; Start 07/06/16 at 15:00 Levofloxacin/ Dextrose (LEVAQUIN 500mg PREMIX) 100 ml @ 100 mls/hr Q48H IV Last administered on 07/06/16 17:36; Start 07/06/16 at 15:00 Darbepoetin Naif 60 mcg 60 mcg WEEKLYHS SQ Last administered on 07/06/16 19:31 ; Start 07/06/16 at 21:00 Sodium Chloride (Iv Sodium Chloride 0.9% 1000ml Bag) 1,000 ml @ 1,000 mls/hr Q1H PRN IV hypotension; Start 07/06/16 at 23:29; Stop 07/07/16 at 05:28; Status DC Sodium Chloride (Normal Saline Flush) 10 ml 1X PRN PRN IV AP catheter pack; Start 07/06/16 at 23:30; Stop 07/07/16 at 23:29 Sodium Chloride (Normal Saline Flush) 10 ml 1X PRN PRN IV PHYSICIAN/ALLERGY/IMMUNOLOGY catheter pack; Start 07/06/16 at 23:30; Stop 07/07/16 at 23:29 Info (PHARMACY MONITORING -- do not chart) 1 each PRN DAILY PRN MC SEE COMMENTS ; Start 07/06/16 at 23:30 Info 1 each 1 each PRN DAILY PRN MC SEE COMMENTS; Start 07/06/16 at 23:30; Stop 07/07/16 at 13:09; Status DC Vancomycin HCl/ Sodium Chloride (Iv Sodium Chloride 0.9% 250ml) 250 ml @ 250 mls/hr 1X ONCE IV Last administered on 07/07/16 06:36; Start 07/07/16 at 06: 30; Stop 07/07/16 at 07:29; Status DC Active Scripts Active Reported Amiodarone Hcl 200 Mg Tablet 200 Mg PO BID Aspir 81 (Aspirin) 81 Mg Tablet.dr 81 Mg PO DAILY Atorvastatin Calcium 20 Mg Tablet 20 Mg PO HS Cardizem Cd (Diltiazem Hcl) 360 Mg Cap.er.24h 360 Mg PO DAILY Docusate Sodium 100 Mg Capsule 100 Mg PO BID Melatonin 3 Mg Tablet 9 Mg PO DAILY Polyethylene Glycol 3350 17 Gm Powd.pack 17 Gm PO DAILY Senna (Sennosides) 8.6 Mg Tablet 8.6 Mg PO DAILY Clonidine Hcl 0.2 Mg Tablet 0.2 Mg PO DAILY Micro-Guard (Miconazole Nitrate) 85 Gm Powder 85 Gm TP BID Humalog (Insulin Lispro) 100 Unit/1 Ml Vial 100 Unit SQ Buspirone Hcl 5 Mg Tablet 5 Mg PO TID Aranesp Vial (Darbepoetin Naif In Polysorbat) 100 Mcg/1 Ml Vial 100 Mcg SQ WEEKLY Nephron Fa Tablet (Fe Fumarate/Dinorah/Fa/Bcomp&C) 1 Each Tablet 1 Each PO DAILY Ferrous Sulfate 325 Mg Tablet 1 Tab PO DAILY Escitalopram Oxalate 20 Mg Tablet 20 Mg PO DAILY Duoneb 0.5-3(2.5) Mg/3 Ml (Albuterol/Ipratropium) 3 Ml Ampul.neb 3 Ml NEB QID PRN Gabapentin 600 Mg Tablet 600 Mg PO BID Mirtazapine 7.5 Mg Tablet 7.5 Mg PO DAILY Abilify (Aripiprazole) 2 Mg Tablet 2.5 Mg PO DAILY Labetalol Hcl 5 Mg/1 Ml Vial 10 Mg IV PRN Heparin Sod 5,000 Unit/ 0.5 Ml (Heparin Sodium,Porcine/Pf) 5,000 Unit/0.5 Ml Vial 5,000 Unit IJ TID Novolin N (Nph, Human Insulin Isophane) 100 Unit/1 Ml Vial 100 Unit SQ PRN Vitals/I & O Vital Sign - Last 24 Hours 07/06/16 07/06/16 07/06/16 07/06/16 13:30 13:36 13:56 14:16 Temp 100.4 100.4 Pulse 82 82 84 Resp 19 B/P 101/46 119/51 119/49 Pulse Ox 92 98 99 O2 Delivery Nasal Cannula Nasal Cannula Nasal Cannula O2 Flow Rate 3 3 3 07/06/16 07/06/16 07/06/16 07/06/16 14:36 16:30 16:38 19:30 Temp 98.7 98.3 98.7 98.3 Pulse 82 87 87 Resp 20 B/P 118/51 104/36 126/44 Pulse Ox 99 97 97 O2 Delivery Nasal Cannula Nasal Cannula Nasal Cannula Nasal Cannula O2 Flow Rate 3 3.0 3.0 3.0 07/06/16 07/07/16 07/07/16 07/07/16 19:46 00:30 03:00 07:00 Temp 100.0 102.0 98.4 100.0 102.0 98.4 Pulse 88 89 69 Resp 20 20 16 B/P 116/50 128/47 103/46 Pulse Ox 93 91 96 O2 Delivery Nasal Cannula Nasal Cannula Nasal Cannula Room Air O2 Flow Rate 3.0 3.0 3.0 07/07/16 07/07/16 07/07/16 07:30 07:30 11:00 Temp 98.2 98.2 Pulse 88 Resp 16 B/P 109/38 Pulse Ox 98 O2 Delivery Nasal Cannula Nasal Cannula Room Air O2 Flow Rate 3.0 3.0 Intake and Output 07/06/16 07/06/16 07/07/16 15:00 23:00 07:00 Intake Total 500 ml 940 ml 120 ml Output Total 0 ml Balance 500 ml 940 ml 120 ml Nutrition Consultation Dietary Evaluation: Recommendations by RD: Increase Calorie Intake, Protein supplementation Comments: Added boost breeze TID while on clear liquids When able to advance diet, rec. renal with novasource renal TID - 475kcal and 21.6g protein Expected Outcomes/Goals: diet advancement Malnutrition Findings: Food and Nutrition Intake (Mod: <75% est energy req 7days Weight Status: Morbidly Obese Fluid Accumulation (Non-Severe: Mild depletion JOSH RICHMONDL K III DO Jul 07, 2016 13:28
[2016-07-07] MEDS: NYSTATIN TOPICAL POWDER 15GM BOTTLE. TP SCH ×2 (14:00→20:08)
--- NOTE | 2016-07-07 15:58 | PDOC ---
Exam Banding Machine Operator Banding Machine Operator Yoon Can Cutter Can Cutter Jackie Herrera Pre-Procedure Diagnosis Pre-Procedure Diagnosis 60 YO female with infected tunneled HDC with sepsis. Post-Procedure Diagnosis Post-Procedure Diagnosis Same Procedure Performed Procedure Performed Removal rt IJ tunneled HDC Type of Anesthesia Type of Anesthesia None Estimated Blood Loss EBL: None Specimens Specimans Rt IJ 14.5F 23cm Palindrome tunneled HDC removed and discarded Condition of Patient Condition of Patient No change. No apparent complication. Disposition Disposition From IR return to [facility][note 3]. Full report to follow. Plan HDC replacement when Blood Cultures negative. YOGESH JUÁREZ MD Jul 07, 2016 15:58
--- NOTE | 2016-07-07 16:59 | RAD ---
Tunneled dialysis catheter removal Indication: Infected right IJ tunneled hemodialysis catheter, with sepsis. Tunneled dialysis catheter removal has been requested. Anesthesia: None Fluoroscopy time: None Antibiotic: None. The patient was receiving scheduled antibiotics at the time of dialysis catheter removal. Procedure: Informed consent was obtained the patient's . This procedure was performed in the angiography suite with the patient and her hospital bed. Using aseptic technique, the indwelling, infected right IJ 14.5 Malaysian 23 cm palindrome tunneled hemodialysis catheter was easily removed utilizing gentle traction. No blunt or sharp dissection was required. Hemostasis was achieved with manual pressure over right internal jugular vein. A sterile dressing was applied. Given positive blood cultures, the catheter tip was not submitted to microbiology--- the removed tunneled dialysis catheter was discarded. Patient tolerated the procedure well without apparent complication. Impression: Uneventful removal of right IJ 14.5 Malaysian 23 cm palindrome tunneled hemodialysis catheter, as described.
[2016-07-07] MEDS ORDERED: OXYCODONE IR 5 MG TABLET. PO PRN (18:00)
[2016-07-07] MEDS: TRAMADOL 50 MG TABLET. PO PRN (18:47)
--- NOTE | 2016-07-08 01:06 | CONS ---
DATE OF CONSULTATION: 07/07/2016 REQUESTING PHYSICIAN: Dr. Brito. REASON FOR CONSULTATION: Sepsis. HISTORY OF PRESENT ILLNESS: This is a 60-year-old female with morbid obesity, end-stage renal disease on hemodialysis, who was found by to have diarrhea, change in mental status and fever. The patient's called ambulance. The patient was brought in. The patient was febrile. The patient's dialysis catheter site was not looking good, both cultures were done including blood and was started on Zosyn. I added vancomycin and now blood cultures are positive. The patient is somnolent, but arousable. She smiles and says she is feeling a little bit better. No nausea, vomiting, diarrhea noted. The patient denies any chest pain, shortness of breath, abdominal pain, headache or visual symptoms. PAST MEDICAL HISTORY: Positive for end-stage renal disease on hemodialysis, diabetes mellitus, obesity, hyperlipidemia, hypertension, has right tunneled catheter in the right upper chest. SOCIAL HISTORY: Negative for smoking, alcohol, illicit drug use. Lives with her . ALLERGIES: No known drug allergies. CURRENT MEDICATIONS: Reviewed. The patient is on vancomycin and Zosyn. REVIEW OF SYSTEMS: As per HPI, all other systems reviewed are negative. PHYSICAL EXAMINATION: GENERAL: Alert, oriented female, not in any distress. VITAL SIGNS: Temperature 98.4 with a T-max 102, pulse is 69, respirations 16, blood pressure 103/46. HEENT: NAD. NECK: Supple, no JVP, no lymphadenopathy. LUNGS: Clear. HEART: S1, S2 regular. ABDOMEN: Benign. EXTREMITIES: No edema or cyanosis. SKIN: The patient does have multiple skin ____ breakdowns either scratch lofton or at least simple skin soft tissue areas present all over the body. NEUROLOGIC: The patient is neurologically intact. LABORATORY DATA: White count is down from 12,000 to 10,000. BUN and creatinine is 58 and 61.1. Urinalysis showed more than 40 wbc's. Blood culture is positive with Gram-positive cocci in clusters. Catheter site is positive for gram-positive cocci. Chest x-ray unremarkable. IMPRESSION: 1. Sepsis. 2. Encephalopathy. 3. Blood culture positive for gram-positive cocci, likely staph. 4. End-stage renal disease, on hemodialysis. 5. Fever and leukocytosis. 6. Obesity. PLAN: Recommend to continue vancomycin and Zosyn for now. The dialysis catheter has been planned to be removed. Discussed with Dr. Brito. Discussion with done. We will continue to follow and adjust as more information is available. Thank you very much, Dr. Brito for giving me the opportunity to participate in this patient's care. LAY SIEGEL MD DR: MAILE/charly JOB#: [id number] / [id number]
[2016-07-08 03:30] VITALS: BP 112/56
[2016-07-08] MEDS: TRAMADOL 50 MG TABLET. PO PRN (04:45)
[2016-07-08] MEDS: ACETAMINOPHEN 325 MG TABLET. PO PRN (04:45)
[2016-07-08] MEDS: PIPERACILLIN/TAZOBACTAM 2.25 GM in IV NORMAL SALINE 50ML 50 ML IV SCH (05:17)
[2016-07-08 05:49] LABS: HEMATOCRIT 31.8 % (36.0-47.0); RED BLOOD COUNT 3.75 x10^6/uL (3.50-5.40); RED CELL DISTRIBUTION WIDTH 16.8 % (11.5-14.5); WHITE BLOOD COUNT 10.9 x10^3/uL (4.0-11.0)
[2016-07-08 06:06] LABS: CALCIUM 7.6 mg/dL (8.5-10.1); CREATININE 7.1 mg/dL (0.6-1.0); GFR 5.9
[2016-07-08 07:00] VITALS: BP 110/50
--- NOTE | 2016-07-08 07:34 | RAD ---
Left shoulder, 3 views, 07/07/2016: History: Shoulder pain No fracture or dislocation is identified. There is degenerative change at the AC joint with subacromial spurring. There is mild spurring at the glenohumeral articulation. IMPRESSION: 1. Mild to moderate degenerative change. 2. No acute bony abnormality is detected.
[2016-07-08] MEDS: HYDROCODONE/APAP 5/325MG TABLET. PO PRN ×2 (09:54→20:20)
[2016-07-08] MEDS: NYSTATIN TOPICAL POWDER 15GM BOTTLE. TP SCH ×2 (09:56→20:21)
--- NOTE | 2016-07-08 10:08 | PDOC ---
Subjective: Subjective: Denies diarrhea. "Burning" RLE pain, constant. Wants to eat more than clears. Objective: Objective: Per RN - no diarrhea. Vital Signs: Vital Signs Date Time Temp Pulse Resp B/P Pulse Ox O2 Delivery O2 Flow Rate FiO2 07/08/16 09:54 20 Nasal Cannula 3.0 07/08/16 07:00 97.9 70 110/50 98 97.9 Labs: Laboratory Tests Test 07/07/16 12:02 07/07/16 17:18 07/07/16 21:06 07/08/16 03:00 Glucose (Fingerstick) 135mg/dL 176mg/dL 279mg/dL White Blood Count 10.9x10^3/uL Red Blood Count 3.75x10^6/uL Hemoglobin 10.0g/dL Hematocrit 31.8% Mean Corpuscular Volume 85fL Mean Corpuscular Hemoglobin 27pg Mean Corpuscular Hemoglobin Concent 32g/dL Red Cell Distribution Width 16.8% Platelet Count 134x10^3/uL Sodium Level 137mmol/L Potassium Level 4.0mmol/L Chloride Level 100mmol/L Carbon Dioxide Level 24mmol/L Anion Gap 13 Blood Urea Nitrogen 76mg/dL Creatinine 7.1mg/dL Estimated GFR (Cockcroft-Gault) 5.9 Glucose Level 242mg/dL Calcium Level 7.6mg/dL Test 07/08/16 08:08 Glucose (Fingerstick) 184mg/dL PE: GEN: NAD LUNGS: nasal cannula HEART: S1S2 ABD: obese, non-tender, difficult exam due to body habitus NEURO/PSYCH: A & O 3 A/P: Diarrhea - none since admission -stool tests uncollected -h/o C Diff 10/2015 @ [facility], treated w/ vanco ESRD on HD, sepsis -dialysis catheter removed 07/07 -ID, nephrology following -- Seems okay to advance diet. Monitor for diarrhea. RAHEEL ALCAZAR Jul 08, 2016 10:07
--- NOTE | 2016-07-08 10:18 | PDOC ---
Infectious Disease Note Subjective Subjective pt is feeling ok, no complaints ROS ROS GEN: Denies fevers, chills, sweats HEENT: Denies blurred vision, sore throat CV: Denies chest pain RESP: Denies shortness of air, cough GI: Denies n/v/d NEURO: Denies confusion, dizziness MSK: Denies weakness, joint pain/swelling Vital Sign Vital Signs Vital Signs Date Time Temp Pulse Resp B/P Pulse Ox O2 Delivery O2 Flow Rate FiO2 07/08/16 09:54 20 Nasal Cannula 3.0 07/08/16 07:00 97.9 70 110/50 98 97.9 Physical Exam PHYSICAL EXAM GENERAL: NAD, Alert HEENT: PERRL, OC/OP NECK: Supple, no JVD, no LN LUNGS: Clear HEART: S1S2, no gallop, no murmur ABD: Soft, NT, no organomegaly, no rebound EXT: No edema, no cyanosis [employer]IVER: Alert, oriented x 3, no focal neurologic deficit SKIN: No rash IV: ok Labs Lab Laboratory Tests Test 07/07/16 12:02 07/07/16 17:18 07/07/16 21:06 07/08/16 03:00 Glucose (Fingerstick) 135mg/dL (70-99) 176mg/dL (70-99) 279mg/dL (70-99) White Blood Count 10.9x10^3/uL (4.0-11.0) Red Blood Count 3.75x10^6/uL (3.50-5.40) Hemoglobin 10.0g/dL (12.0-15.5) Hematocrit 31.8% (36.0-47.0) Mean Corpuscular Volume 85fL (79-100) Mean Corpuscular Hemoglobin 27pg (25-35) Mean Corpuscular Hemoglobin Concent 32g/dL (31-37) Red Cell Distribution Width 16.8% (11.5-14.5) Platelet Count 134x10^3/uL (140-400) Sodium Level 137mmol/L (136-145) Potassium Level 4.0mmol/L (3.5-5.1) Chloride Level 100mmol/L (98-107) Carbon Dioxide Level 24mmol/L (21-32) Anion Gap 13 (6-14) Blood Urea Nitrogen 76mg/dL (7-20) Creatinine 7.1mg/dL (0.6-1.0) Estimated GFR (Cockcroft-Gault) 5.9 Glucose Level 242mg/dL (70-99) Calcium Level 7.6mg/dL (8.5-10.1) Test 07/08/16 08:08 Glucose (Fingerstick) 184mg/dL (70-99) Micro BLOOD CULTURE PRL Preliminary Preliminary report BLD CULT RESULT 1 Preliminary Staphylococcus aureus Recovered from aerobic and anaerobic bottles. Performed at: [address] [id number] Correction Officer: Belle Wallis MD, Phone: [phone] Objective Assessment Sepsis Encephalopathy BC positive ESRD Obesity Plan Plan of Care vanc supportive care d/w dr Brito HD cath out repeat bc LAY SIEGEL MD Jul 08, 2016 10:18
[2016-07-08 11:00] VITALS: BP 97/46
--- NOTE | 2016-07-08 11:45 | PDOC ---
Renal-Progress Notes Subjective Notes Notes NONE History of Present Illness Hx of present illness STABLE Vitals Vitals Vital Signs Date Time Temp Pulse Resp B/P Pulse Ox O2 Delivery O2 Flow Rate FiO2 07/08/16 09:54 20 Nasal Cannula 3.0 07/08/16 07:00 97.9 70 110/50 98 97.9 Weight Weight [ ] I.O. Intake and Output Intake and Output 07/08/16 07:00 Intake Total 360 ml Output Total 1 ml Balance 359 ml Intake Oral 360 ml Stool Total 1 ml # Bowel Movements 3 Labs Labs Laboratory Tests Test 07/07/16 12:02 07/07/16 17:18 07/07/16 21:06 07/08/16 03:00 Glucose (Fingerstick) 135mg/dL (70-99) 176mg/dL (70-99) 279mg/dL (70-99) White Blood Count 10.9x10^3/uL (4.0-11.0) Red Blood Count 3.75x10^6/uL (3.50-5.40) Hemoglobin 10.0g/dL (12.0-15.5) Hematocrit 31.8% (36.0-47.0) Mean Corpuscular Volume 85fL (79-100) Mean Corpuscular Hemoglobin 27pg (25-35) Mean Corpuscular Hemoglobin Concent 32g/dL (31-37) Red Cell Distribution Width 16.8% (11.5-14.5) Platelet Count 134x10^3/uL (140-400) Sodium Level 137mmol/L (136-145) Potassium Level 4.0mmol/L (3.5-5.1) Chloride Level 100mmol/L (98-107) Carbon Dioxide Level 24mmol/L (21-32) Anion Gap 13 (6-14) Blood Urea Nitrogen 76mg/dL (7-20) Creatinine 7.1mg/dL (0.6-1.0) Estimated GFR (Cockcroft-Gault) 5.9 Glucose Level 242mg/dL (70-99) Calcium Level 7.6mg/dL (8.5-10.1) Test 07/08/16 08:08 Glucose (Fingerstick) 184mg/dL (70-99) Micro Micro Microbiology 07/06/16 Blood Culture - Final, Complete 07/06/16 Gram Stain - Final, Complete Review of Systems Constitutional: yes: alert, weakness Ears/Nose/Throat: Yes: no symptom reported Eyes: Yes: no symptom reported Pulmonary: Yes dyspnea Cardiovascular: Yes no symptom reported Musculoskeletal: Yes: muscle stiffness Skin: Yes no symptom reported Physical Exam General Appearance: no apparent distress Skin: warm Respiratory: decreased breath sounds Heart: S1S2, RRR Neurology: alert, oriented Assessment Assessment IMP ESRD LINE INFECTION ANEMIA HYPERVOLEMIA PLAN ANTIBIOTICS WILL HAVE IR PLACE TEMP HD CATHETER TOMORROW WILL THEN HAVE TUNNELED HD CATHETER NEXT WK ONCE CULTURES ARE CLEAR D/W ID MELITON SÁNCHEZ MD Jul 08, 2016 11:45
[2016-07-08] MEDS: VANCOMYCIN PER PHARMACY MC PRN (13:14)
[2016-07-08 14:36] VITALS: BP 110/54
[2016-07-08] MEDS ORDERED: IPRATRPIUM/ALBUTEROL 0.5/2.5MG 3 ML NEBU. NEB PRN (14:45)
[2016-07-08] MEDS: HEPARIN PF for SUB-Q USE 5,000 UNIT/0.5 ML VIAL. SQ SCH ×2 (15:00→20:18)
[2016-07-08] MEDS: ASPIRIN ENTERIC COATED 81 MG TABLET.DR. PO SCH (15:00)
[2016-07-08] MEDS ORDERED: LABETALOL 20 MG/4 ML DISP.SYRIN. IVP PRN (15:15)
--- NOTE | 2016-07-08 15:45 | PDOC ---
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 She did not show signs of distress, and the presentation of an infection in the skin folds was not as prominent as the previous day. She reports having new onset erythema and tenderness over her left elbow. Vitals Vitals Vital Signs Date Time Temp Pulse Resp B/P Pulse Ox O2 Delivery O2 Flow Rate FiO2 07/08/16 14:36 98.1 76 21 110/54 98 Nasal Cannula 3.0 98.1 Physical Exam General: No acute distress, Other (Resting comfortably) Heart: Regular rate, Normal S1, Normal S2 Lungs: Clear, Other (No chest retractions were present) Abdomen: Soft, No masses Extremities: No clubbing, No cyanosis Skin: No rashes, No breakdown Labs LABS Laboratory Tests Test 07/07/16 17:18 07/07/16 21:06 07/08/16 03:00 07/08/16 08:08 Glucose (Fingerstick) 176mg/dL (70-99) 279mg/dL (70-99) 184mg/dL (70-99) White Blood Count 10.9x10^3/uL (4.0-11.0) Red Blood Count 3.75x10^6/uL (3.50-5.40) Hemoglobin 10.0g/dL (12.0-15.5) Hematocrit 31.8% (36.0-47.0) Mean Corpuscular Volume 85fL (79-100) Mean Corpuscular Hemoglobin 27pg (25-35) Mean Corpuscular Hemoglobin Concent 32g/dL (31-37) Red Cell Distribution Width 16.8% (11.5-14.5) Platelet Count 134x10^3/uL (140-400) Sodium Level 137mmol/L (136-145) Potassium Level 4.0mmol/L (3.5-5.1) Chloride Level 100mmol/L (98-107) Carbon Dioxide Level 24mmol/L (21-32) Anion Gap 13 (6-14) Blood Urea Nitrogen 76mg/dL (7-20) Creatinine 7.1mg/dL (0.6-1.0) Estimated GFR (Cockcroft-Gault) 5.9 Glucose Level 242mg/dL (70-99) Calcium Level 7.6mg/dL (8.5-10.1) Test 07/08/16 11:51 Glucose (Fingerstick) 230mg/dL (70-99) Review of Systems Review of Systems The patient does not report having nausea or vomiting. She does not have dizziness or shortness of breath. She has not experienced any malaise or feelings of fevers. She does not have suprapubic pain or problems with emptying her bladder. Assessment and Plan Assessmemt and Plan Problems Medical Problems: (1) Anemia Status: Acute (2) End stage renal disease Status: Acute (3) Generalized weakness Status: Acute (4) Healthcare-associated pneumonia Status: Acute (5) Sepsis Status: Acute (6) Transient hypotension Status: Acute (7) Urinary tract infection Status: Acute Assessment: Ms. Rogers is a 60 year old female that presented with a 5 day history of diarrhea. 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 Continue to monitor labs and vitals for changes in BNP and blood pressure 2. Continue to remove excess fluid 3. Consider additional blood cultures for clearance of infection 4. PT/OT 5. Appreciate consultation from nephrology, GI, ID, and pulmonology Problems: Comment Review of Relevant I have reviewed the following items dominga (where applicable) has been applied. Labs Laboratory Tests Test 07/06/16 17:15 07/07/16 06:40 07/07/16 08:05 07/07/16 12:02 Glucose (Fingerstick) 160mg/dL (70-99) 129mg/dL (70-99) 135mg/dL (70-99) White Blood Count 10.8x10^3/uL (4.0-11.0) Red Blood Count 3.74x10^6/uL (3.50-5.40) Hemoglobin 10.0g/dL (12.0-15.5) Hematocrit 31.7% (36.0-47.0) Mean Corpuscular Volume 85fL (79-100) Mean Corpuscular Hemoglobin 27pg (25-35) Mean Corpuscular Hemoglobin Concent 31g/dL (31-37) Red Cell Distribution Width 16.7% (11.5-14.5) Platelet Count 131x10^3/uL (140-400) Neutrophils (%) (Auto) 85% (31-73) Lymphocytes (%) (Auto) 7% (24-48) Monocytes (%) (Auto) 7% (0-9) Eosinophils (%) (Auto) 1% (0-3) Basophils (%) (Auto) 0% (0-3) Neutrophils # (Auto) 9.1x10^3uL (1.8-7.7) Lymphocytes # (Auto) 0.8x10^3/uL (1.0-4.8) Monocytes # (Auto) 0.8x10^3/uL (0.0-1.1) Eosinophils # (Auto) 0.1x10^3/uL (0.0-0.7) Basophils # (Auto) 0.0x10^3/uL (0.0-0.2) Sodium Level 140mmol/L (136-145) Potassium Level 4.1mmol/L (3.5-5.1) Chloride Level 103mmol/L (98-107) Carbon Dioxide Level 23mmol/L (21-32) Anion Gap 14 (6-14) Blood Urea Nitrogen 58mg/dL (7-20) Creatinine 6.1mg/dL (0.6-1.0) Estimated GFR (Cockcroft-Gault) 7.0 Glucose Level 135mg/dL (70-99) Calcium Level 7.9mg/dL (8.5-10.1) Random Vancomycin Level 22.0mcg/mL Test 07/07/16 17:18 07/07/16 21:06 07/08/16 03:00 07/08/16 08:08 Glucose (Fingerstick) 176mg/dL (70-99) 279mg/dL (70-99) 184mg/dL (70-99) White Blood Count 10.9x10^3/uL (4.0-11.0) Red Blood Count 3.75x10^6/uL (3.50-5.40) Hemoglobin 10.0g/dL (12.0-15.5) Hematocrit 31.8% (36.0-47.0) Mean Corpuscular Volume 85fL (79-100) Mean Corpuscular Hemoglobin 27pg (25-35) Mean Corpuscular Hemoglobin Concent 32g/dL (31-37) Red Cell Distribution Width 16.8% (11.5-14.5) Platelet Count 134x10^3/uL (140-400) Sodium Level 137mmol/L (136-145) Potassium Level 4.0mmol/L (3.5-5.1) Chloride Level 100mmol/L (98-107) Carbon Dioxide Level 24mmol/L (21-32) Anion Gap 13 (6-14) Blood Urea Nitrogen 76mg/dL (7-20) Creatinine 7.1mg/dL (0.6-1.0) Estimated GFR (Cockcroft-Gault) 5.9 Glucose Level 242mg/dL (70-99) Calcium Level 7.6mg/dL (8.5-10.1) Test 07/08/16 11:51 Glucose (Fingerstick) 230mg/dL (70-99) Laboratory Tests Test 07/07/16 17:18 07/07/16 21:06 07/08/16 03:00 07/08/16 08:08 Glucose (Fingerstick) 176mg/dL (70-99) 279mg/dL (70-99) 184mg/dL (70-99) White Blood Count 10.9x10^3/uL (4.0-11.0) Red Blood Count 3.75x10^6/uL (3.50-5.40) Hemoglobin 10.0g/dL (12.0-15.5) Hematocrit 31.8% (36.0-47.0) Mean Corpuscular Volume 85fL (79-100) Mean Corpuscular Hemoglobin 27pg (25-35) Mean Corpuscular Hemoglobin Concent 32g/dL (31-37) Red Cell Distribution Width 16.8% (11.5-14.5) Platelet Count 134x10^3/uL (140-400) Sodium Level 137mmol/L (136-145) Potassium Level 4.0mmol/L (3.5-5.1) Chloride Level 100mmol/L (98-107) Carbon Dioxide Level 24mmol/L (21-32) Anion Gap 13 (6-14) Blood Urea Nitrogen 76mg/dL (7-20) Creatinine 7.1mg/dL (0.6-1.0) Estimated GFR (Cockcroft-Gault) 5.9 Glucose Level 242mg/dL (70-99) Calcium Level 7.6mg/dL (8.5-10.1) Test 07/08/16 11:51 Glucose (Fingerstick) 230mg/dL (70-99) Microbiology 07/06/16 Blood Culture - Final, Complete 07/06/16 Urine Culture - Final, Complete 07/06/16 Urine Culture Result 1 (NEGRITO) - Final, Complete 07/06/16 Gram Stain - Final, Complete Medications Current Medications Sodium Chloride (Iv Sodium Chloride 0.9% 500ml Bag) 500 ml @ 1,000 mls/hr 1X ONCE IV Last administered on 07/06/16 13:33; Start 07/06/16 at 12:45; Stop 01/12 at 13:14; Status DC Ondansetron HCl (Zofran) 4 mg 1X ONCE IV Last administered on 07/06/16 13:33 ; Start 07/06/16 at 12:45; Stop 07/06/16 at 12:46; Status DC Vancomycin HCl (Vanco Per Pharmacy) 1 each PRN DAILY PRN MC SEE COMMENTS Last administered on 07/08/16 13:14; Start 07/06/16 at 14:00 Piperacillin Sod/ Tazobactam Sod (Zosyn Per Pharmacy) 1 each PRN DAILY PRN MC SEE COMMENTS; Start 07/06/16 at 14:00; Stop 07/08/16 at 09:55; Status DC Levofloxacin/ Dextrose 1 each 1 each PRN DAILY PRN MC SEE COMMENTS; Start 07/06 at 14:00; Stop 07/08/16 at 09:55; Status DC Vancomycin HCl/ Sodium Chloride (Iv Sodium Chloride 0.9% 500ml Bag) 500 ml @ 250 mls/hr 1X ONCE IV Last administered on 07/06/16 15:03; Start 07/06/16 at 14:15; Stop 07/06/16 at 16:14; Status DC Ondansetron HCl (Zofran) 4 mg PRN Q8HRS PRN IV NAUSEA/VOMITING; Start 07/06/16 at 14:30; Stop 07/07/16 at 14:29; Status DC Morphine Sulfate 2 mg PRN Q2HR PRN IV PAIN; Start 07/06/16 at 14:30; Stop 07/07 at 14:29; Status DC Acetaminophen 650 mg 650 mg PRN Q4HRS PRN PO FEVER Last administered on 05:17; Start 07/06/16 at 14:30; Stop 07/07/16 at 14:29; Status DC Piperacillin Sod/ Tazobactam Sod 2.25 gm/Sodium Chloride 50 ml @ 100 mls/hr Q8HRS IV Last administered on 07/08/16 05:17; Start 07/06/16 at 15:00; Stop at 09:55; Status DC Levofloxacin/ Dextrose (LEVAQUIN 500mg PREMIX) 100 ml @ 100 mls/hr Q48H IV Last administered on 07/06/16 17:36; Start 07/06/16 at 15:00; Stop 07/08/16 at 09:55; Status DC Darbepoetin Naif 60 mcg 60 mcg WEEKLYHS SQ Last administered on 07/06/16 19:31 ; Start 07/06/16 at 21:00 Sodium Chloride (Iv Sodium Chloride 0.9% 1000ml Bag) 1,000 ml @ 1,000 mls/hr Q1H PRN IV hypotension; Start 07/06/16 at 23:29; Stop 07/07/16 at 05:28; Status DC Sodium Chloride (Normal Saline Flush) 10 ml 1X PRN PRN IV AP catheter pack; Start 07/06/16 at 23:30; Stop 07/07/16 at 23:29; Status DC Sodium Chloride (Normal Saline Flush) 10 ml 1X PRN PRN IV HYDRAULIC RIVETER catheter pack; Start 07/06/16 at 23:30; Stop 07/07/16 at 23:29; Status DC Info (PHARMACY MONITORING -- do not chart) 1 each PRN DAILY PRN MC SEE COMMENTS ; Start 07/06/16 at 23:30 Info 1 each 1 each PRN DAILY PRN MC SEE COMMENTS; Start 07/06/16 at 23:30; Stop 07/07/16 at 13:09; Status DC Vancomycin HCl/ Sodium Chloride (Iv Sodium Chloride 0.9% 250ml) 250 ml @ 250 mls/hr 1X ONCE IV Last administered on 07/07/16 06:36; Start 07/07/16 at 06: 30; Stop 07/07/16 at 07:29; Status DC Nystatin (Nystop) 1 stephan BID TP Last administered on 07/08/16 09:56; Start 02/12 at 14:00 Oxycodone HCl (Roxicodone) 5 mg PRN Q4HRS PRN PO PAIN; Start 07/07/16 at 18:00 ; Stop 07/07/16 at 18:38; Status DC Acetaminophen (Tylenol) 650 mg PRN Q6HRS PRN PO MILD PAIN / TEMP Last administered on 07/08/16 04:45; Start 07/07/16 at 18:45 Tramadol HCl (Ultram) 50 mg PRN Q6HRS PRN PO MODERATE PAIN Last administered on 07/08/16 04:45; Start 07/07/16 at 18:45 Acetaminophen/ Hydrocodone Bitart (Lortab 5/325) 1 tab PRN Q4HRS PRN PO SEVERE PAIN Last administered on 07/08/16 09:54; Start 07/08/16 at 09:30 Vancomycin HCl 1 each 1X ONCE MC ; Start 07/09/16 at 05:00; Stop 07/09/16 at 05 :01 Amiodarone HCl (Cordarone) 200 mg BID PO ; Start 07/08/16 at 21:00 Aripiprazole (Abilify) 2.5 mg DAILY PO ; Start 07/09/16 at 09:00 Aspirin (Ecotrin) 81 mg DAILY PO ; Start 07/08/16 at 15:00 Atorvastatin Calcium (Lipitor) 20 mg HS PO ; Start 07/08/16 at 21:00 Buspirone HCl (Buspar) 5 mg TID PO ; Start 07/08/16 at 15:00 Clonidine HCl (Catapres) 0.2 mg DAILY PO ; Start 07/09/16 at 09:00 Docusate Sodium (Colace) 100 mg BID PO ; Start 07/08/16 at 21:00 Ferrous Sulfate (Feosol) 325 mg DAILY PO ; Start 07/09/16 at 09:00 Heparin Sodium (Porcine) 5,000 unit TID SQ ; Start 07/08/16 at 15:00 Albuterol/ Ipratropium (Duoneb) 3 ml PRN QID PRN NEB SHORTNESS OF BREATH; Start 07/08/16 at 14:45 Labetalol HCl (Normodyne) 10 mg PRN BID PRN IVP HYPERTENSION, SEE COMMENTS; Start 07/08/16 at 15:15 Nystatin (Nystop) 1 stephan BID TP ; Start 07/08/16 at 21:00; Status Cancel Mirtazapine (Remeron) 7.5 mg DAILY PO ; Start 07/09/16 at 09:00 Polyethylene Glycol (miraLAX PACKET) 17 gm DAILY PO ; Start 07/09/16 at 09:00 Sennosides (Senna) 8.6 mg DAILY PO ; Start 07/09/16 at 09:00 Non-Formulary Medication 100 mcg WEEKLY SQ TO TREAT ANEMIA; Start 07/15/16 at 09 :00; Status UNV Diltiazem HCl (Cardizem 24hr Cd) 360 mg DAILY PO ; Start 07/09/16 at 09:00 Escitalopram Oxalate (Lexapro) 20 mg DAILY PO ; Start 07/09/16 at 09:00 Vitamin B Complex/ Vitamin C (Zoe-Kiran) 1 tab DAILY PO ; Start 07/09/16 at 09: 00 Gabapentin (Neurontin) 600 mg BID PO ; Start 07/08/16 at 21:00 Non-Formulary Medication 9 mg DAILY PO ; Start 07/09/16 at 09:00; Status UNV Insulin Aspart (Novolog) 10 units TIDAC SQ ; Start 07/08/16 at 16:30 Active Scripts Active Reported Amiodarone Hcl 200 Mg Tablet 200 Mg PO BID Aspir 81 (Aspirin) 81 Mg Tablet.dr 81 Mg PO DAILY Atorvastatin Calcium 20 Mg Tablet 20 Mg PO HS Cardizem Cd (Diltiazem Hcl) 360 Mg Cap.er.24h 360 Mg PO DAILY Docusate Sodium 100 Mg Capsule 100 Mg PO BID Melatonin 3 Mg Tablet 9 Mg PO DAILY Polyethylene Glycol 3350 17 Gm Powd.pack 17 Gm PO DAILY Senna (Sennosides) 8.6 Mg Tablet 8.6 Mg PO DAILY Clonidine Hcl 0.2 Mg Tablet 0.2 Mg PO DAILY Micro-Guard (Miconazole Nitrate) 85 Gm Powder 85 Gm TP BID Humalog (Insulin Lispro) 100 Unit/1 Ml Vial 100 Unit SQ Buspirone Hcl 5 Mg Tablet 5 Mg PO TID Aranesp Vial (Darbepoetin Naif In Polysorbat) 100 Mcg/1 Ml Vial 100 Mcg SQ WEEKLY Nephron Fa Tablet (Fe Fumarate/Dinorah/Fa/Bcomp&C) 1 Each Tablet 1 Each PO DAILY Ferrous Sulfate 325 Mg Tablet 1 Tab PO DAILY Escitalopram Oxalate 20 Mg Tablet 20 Mg PO DAILY Duoneb 0.5-3(2.5) Mg/3 Ml (Albuterol/Ipratropium) 3 Ml Ampul.neb 3 Ml NEB QID PRN Gabapentin 600 Mg Tablet 600 Mg PO BID Mirtazapine 7.5 Mg Tablet 7.5 Mg PO DAILY Abilify (Aripiprazole) 2 Mg Tablet 2.5 Mg PO DAILY Labetalol Hcl 5 Mg/1 Ml Vial 10 Mg IV PRN Heparin Sod 5,000 Unit/ 0.5 Ml (Heparin Sodium,Porcine/Pf) 5,000 Unit/0.5 Ml Vial 5,000 Unit IJ TID Novolin N (Nph, Human Insulin Isophane) 100 Unit/1 Ml Vial 100 Unit SQ PRN Vitals/I & O Vital Sign - Last 24 Hours 07/07/16 07/07/16 07/07/16 07/07/16 18:47 19:05 20:00 22:34 Temp 97.5 97.5 Pulse 73 Resp 22 B/P 109/53 Pulse Ox 99 73 O2 Delivery Nasal Cannula Nasal Cannula Room Air Room Air O2 Flow Rate 2.0 3.0 07/07/16 07/08/16 07/08/16 07/08/16 22:34 03:30 04:28 04:45 Temp 97.3 98.0 97.3 98.0 Pulse 75 72 Resp 20 20 18 B/P 96/37 112/56 Pulse Ox 97 98 O2 Delivery Nasal Cannula Nasal Cannula Nasal Cannula O2 Flow Rate 3.0 3.0 3.0 07/08/16 07/08/16 07/08/16 07/08/16 06:14 07:00 08:00 09:54 Temp 97.9 97.9 Pulse 70 Resp 20 22 20 B/P 110/50 Pulse Ox 98 O2 Delivery Room Air Nasal Cannula Room Air Nasal Cannula O2 Flow Rate 3.0 3.0 3.0 3.0 07/08/16 07/08/16 07/08/16 10:54 11:00 14:36 Temp 97.5 98.1 97.5 98.1 Pulse 66 76 Resp 20 21 21 B/P 97/46 110/54 Pulse Ox 99 98 O2 Delivery Nasal Cannula Nasal Cannula Nasal Cannula O2 Flow Rate 3.0 3.0 3.0 Intake and Output 07/07/16 07/07/16 07/08/16 15:00 23:00 07:00 Intake Total 0 ml 360 ml Output Total 1 ml Balance 0 ml 359 ml Nutrition Consultation Dietary Evaluation: Recommendations by RD: Increase Calorie Intake, Protein supplementation Comments: Added boost breeze TID while on clear liquids When able to advance diet, [facility] - 475kcal and 21.6g protein Expected Outcomes/Goals: diet advancement Malnutrition Findings: Food and Nutrition Intake (Mod: <75% est energy req 7days Weight Status: Morbidly Obese Fluid Accumulation (Non-Severe: Mild depletion CASTMARIA ESTHERNIAL K III DO Jul 08, 2016 15:45
[2016-07-08] MEDS: busPIRone 5 MG TABLET. PO SCH ×2 (17:04→20:20)
[2016-07-08] MEDS: INSULIN ASPART 300 UNITS/3 ML INSULN.PEN SQ SCH (17:09)
[2016-07-08 19:00] VITALS: BP 105/71
[2016-07-08] MEDS: DOCUSATE SODIUM 100 MG CAPSULE. PO SCH (20:18)
[2016-07-08] MEDS: ATORVASTATIN CALCIUM 20 MG TABLET PO SCH (20:20)
[2016-07-08] MEDS: GABAPENTIN 300 MG CAPSULE. PO SCH (20:20)
[2016-07-08] MEDS: AMIODARONE HCL 200 MG TABLET. PO SCH (20:21)
[2016-07-08] MEDS ORDERED: NYSTATIN TOPICAL POWDER 15GM BOTTLE. TP SCH (21:00)
[2016-07-08 23:00] VITALS: BP 107/43
[2016-07-09] VITALS (10 sets, daily range): BP systolic 103–120; BP diastolic 42–57
[2016-07-09 04:55] LABS: CALCIUM 7.7 mg/dL (8.5-10.1); CREATININE 7.7 mg/dL (0.6-1.0); GFR 5.4; POTASSIUM 4.1 mmol/L (3.5-5.1)
[2016-07-09] MEDS ORDERED: VANCOMYCIN RANDOM LEVEL. MC ONE (05:00)
[2016-07-09] MEDS: INSULIN ASPART 300 UNITS/3 ML INSULN.PEN SQ SCH ×3 (07:30→16:30)
[2016-07-09] MEDS: AMIODARONE HCL 200 MG TABLET. PO SCH ×2 (09:00→23:45)
[2016-07-09] MEDS: POLYETHYLENE GLYCOL 3350 17 GM PACKET. PO SCH (09:00)
[2016-07-09] MEDS: NYSTATIN TOPICAL POWDER 15GM BOTTLE. TP SCH ×2 (09:00→20:25)
[2016-07-09] MEDS: GABAPENTIN 300 MG CAPSULE. PO SCH ×2 (09:00→20:25)
[2016-07-09] MEDS: SENNOSIDES 8.6 MG TABLET PO SCH (09:00)
[2016-07-09] MEDS: cloNIDine HCL 0.2 MG TABLET PO SCH (09:00)
[2016-07-09] MEDS: busPIRone 5 MG TABLET. PO SCH ×3 (09:00→21:00)
[2016-07-09] MEDS: DOCUSATE SODIUM 100 MG CAPSULE. PO SCH ×2 (09:00→21:00)
[2016-07-09] MEDS: HEPARIN PF for SUB-Q USE 5,000 UNIT/0.5 ML VIAL. SQ SCH ×3 (09:00→21:00)
[2016-07-09] MEDS: ASPIRIN ENTERIC COATED 81 MG TABLET.DR. PO SCH (09:00)
[2016-07-09] MEDS: ARIPiprazole 2 MG TABLET PO SCH (09:00)
[2016-07-09] MEDS: ESCITALOPRAM 10 MG TABLET. PO SCH (09:00)
[2016-07-09] MEDS: FOLIC/VIT B COMP W-C (RENAL) TABLET. PO SCH (09:00)
[2016-07-09] MEDS: FERROUS SULFATE 325 MG TABLET. PO SCH (09:00)
[2016-07-09] MEDS ORDERED: MELATONIN 9 MG PO SCH (09:00)
[2016-07-09] MEDS: MIRTAZAPINE 7.5 MG TABLET. PO SCH (09:00)
--- NOTE | 2016-07-09 09:24 | PDOC ---
Infectious Disease Note Subjective Subjective pt is feeling ok, no complaints ROS ROS GEN: Denies fevers, chills, sweats HEENT: Denies blurred vision, sore throat CV: Denies chest pain RESP: Denies shortness of air, cough GI: Denies n/v/d NEURO: Denies confusion, dizziness MSK: Denies weakness, joint pain/swelling Vital Sign Vital Signs Vital Signs Date Time Temp Pulse Resp B/P Pulse Ox O2 Delivery O2 Flow Rate FiO2 07/09/16 03:01 96.9 66 20 106/49 94 Nasal Cannula 96.9 07/08/16 20:00 3.0 Physical Exam PHYSICAL EXAM GENERAL: NAD, Alert HEENT: PERRL, OC/OP NECK: Supple, no JVD, no LN LUNGS: Clear HEART: S1S2, no gallop, no murmur ABD: Soft, NT, no organomegaly, no rebound EXT: No edema, no cyanosis HAND NAILER: Alert, oriented x 3, no focal neurologic deficit SKIN: No rash IV: ok Labs Lab Laboratory Tests Test 07/08/16 11:51 07/08/16 17:01 07/08/16 20:09 07/09/16 04:10 Glucose (Fingerstick) 230mg/dL (70-99) 244mg/dL (70-99) 277mg/dL (70-99) Sodium Level 133mmol/L (136-145) Potassium Level 4.1mmol/L (3.5-5.1) Chloride Level 96mmol/L (98-107) Carbon Dioxide Level 23mmol/L (21-32) Anion Gap 14 (6-14) Blood Urea Nitrogen 90mg/dL (7-20) Creatinine 7.7mg/dL (0.6-1.0) Estimated GFR (Cockcroft-Gault) 5.4 Glucose Level 225mg/dL (70-99) Calcium Level 7.7mg/dL (8.5-10.1) Random Vancomycin Level 26.1mcg/mL Test 07/09/16 08:01 Glucose (Fingerstick) 175mg/dL (70-99) Micro BLOOD CULTURE PRL Preliminary Preliminary report BLD CULT RESULT 1 Preliminary Staphylococcus aureus Recovered from aerobic and anaerobic bottles. Performed at: [address] [id number] Crm Developer: Belle Wallis MD, Phone: [phone] Objective Assessment Sepsis Encephalopathy BC positive ESRD Obesity Plan Plan of Care vanc supportive care d/w dr Brito HD cath out repeat bc pending susceptibility still pending LAY SIEGEL MD Jul 09, 2016 09:24
[2016-07-09] MEDS ORDERED: LIDOCAINE 1% / SOD BICARB 8.4% 20 ML VIAL. IJ ONE ×2 (11:22→11:45)
[2016-07-09] MEDS ORDERED: HEPARIN for IV BOLUS 10,000 UNIT/10 ML VIAL. ONE (11:22)
--- NOTE | 2016-07-09 11:30 | RAD ---
Left ankle, 2 views, 07/08/2016: History: Pain and swelling after a fall There is lateral subluxation of the talus relative to the distal tibia. There is associated widening of the distal tibiofibular syndesmosis. There is a cortical fracture along the lateral corner of the articular surface of the talus, of indeterminate age. There are moderate degenerative changes at the ankle joint and at the midfoot level. There is a large inferior calcaneal spur. No definite acute fracture is seen. Extensive arterial calcification is present. There is diffuse soft tissue swelling about the ankle, most prominent laterally. There is evidence of an ankle joint effusion. There is a small linear radiopaque foreign body projected over the plantar surface of the foot on the lateral view, of indeterminate age. IMPRESSION: 1. Lateral subluxation of the talus. 2. Moderate degenerative change as described above. 3. Small cortical fracture along the lateral margin of the articular surface of the talus, of indeterminate age. 4. Ankle joint effusion
--- NOTE | 2016-07-09 12:00 | PDOC ---
Subjective: Subjective: Not much history from pt. concerns about left arm and shoulder pain w/ movement. Objective: Objective: Per RN - received report of stools overnight. Since then, pt complains of sitting in stool, has been checked/wiped and is cleaned. Vital Signs: Vital Signs Date Time Temp Pulse Resp B/P Pulse Ox O2 Delivery O2 Flow Rate FiO2 07/09/16 03:01 96.9 66 20 106/49 94 Nasal Cannula 96.9 07/08/16 20:00 3.0 Labs: Laboratory Tests Test 07/08/16 17:01 07/08/16 20:09 07/09/16 04:10 07/09/16 08:01 Glucose (Fingerstick) 244mg/dL 277mg/dL 175mg/dL Sodium Level 133mmol/L Potassium Level 4.1mmol/L Chloride Level 96mmol/L Carbon Dioxide Level 23mmol/L Anion Gap 14 Blood Urea Nitrogen 90mg/dL Creatinine 7.7mg/dL Estimated GFR (Cockcroft-Gault) 5.4 Glucose Level 225mg/dL Calcium Level 7.7mg/dL Random Vancomycin Level 26.1mcg/mL Test 07/09/16 11:24 Glucose (Fingerstick) 171mg/dL Imaging: Shoulder X-Ray IMPRESSION: 1. Mild to moderate degenerative change. 2. No acute bony abnormality is detected. Ankle X-Ray IMPRESSION: 1. Lateral subluxation of the talus. 2. Moderate degenerative change as described above. 3. Small cortical fracture along the lateral margin of the articular surface of the talus, of indeterminate age. 4. Ankle joint effusion PE: GEN: NAD LUNGS: clear anteriorly, nasal cannula HEART: S1S2 ABD: non-tender, obese NEURO/PSYCH: A & O 3, drowsy A/P: Diarrhea -some stools overnight, pt difficult historian -h/o C Diff 10/2015 @ [facility], treated w/ vanco; pending here ESRD on HD, sepsis -dialysis catheter removed 07/07 ---> temp replacement planned for today w/ IR -ID, nephrology following -- Await stool tests. RAHEEL ALCAZAR Jul 09, 2016 12:00
--- NOTE | 2016-07-09 12:23 | PDOC ---
Exam Broadcast Operations Engineer Broadcast Operations Engineer Yoon Optical Instrument Assembly Supervisor Optical Instrument Assembly Supervisor Jackie Herrera Pre-Procedure Diagnosis Pre-Procedure Diagnosis ESRD. Infected tunneled HDC removed. Temp HDC required until blood cultures turn negative. Post-Procedure Diagnosis Post-Procedure Diagnosis Same Procedure Performed Procedure Performed Bedside sono guided temp HDC insertion Type of Anesthesia Type of Anesthesia Local Estimated Blood Loss EBL: Minimal Drain/Tubes Drains/Tubes Left IJ 14F 24cm Schon temp HDC Condition of Patient Condition of Patient Stable. No apparent complication. Disposition Disposition STAT pCXR requested for Temp HDC position. Full report to follow. YOGESH JUÁREZ MD Jul 09, 2016 12:23
--- NOTE | 2016-07-09 12:38 | PDOC ---
Renal-Progress Notes Subjective Notes Notes NONE History of Present Illness Hx of present illness NO CHANGE Vitals Vitals Vital Signs Date Time Temp Pulse Resp B/P Pulse Ox O2 Delivery O2 Flow Rate FiO2 07/09/16 11:00 97.6 67 20 110/56 96 Nasal Cannula 3.0 97.6 Weight Weight [ ] I.O. Intake and Output Intake and Output 07/09/16 06:59 Intake Total 1750 ml Balance 1750 ml Intake Oral 1750 ml # Voids 3 # Bowel Movements 4 Labs Labs Laboratory Tests Test 07/08/16 17:01 07/08/16 20:09 07/09/16 04:10 07/09/16 08:01 Glucose (Fingerstick) 244mg/dL (70-99) 277mg/dL (70-99) 175mg/dL (70-99) Sodium Level 133mmol/L (136-145) Potassium Level 4.1mmol/L (3.5-5.1) Chloride Level 96mmol/L (98-107) Carbon Dioxide Level 23mmol/L (21-32) Anion Gap 14 (6-14) Blood Urea Nitrogen 90mg/dL (7-20) Creatinine 7.7mg/dL (0.6-1.0) Estimated GFR (Cockcroft-Gault) 5.4 Glucose Level 225mg/dL (70-99) Calcium Level 7.7mg/dL (8.5-10.1) Random Vancomycin Level 26.1mcg/mL Test 07/09/16 11:24 Glucose (Fingerstick) 171mg/dL (70-99) Micro Micro Microbiology 07/08/16 Blood Culture - Preliminary, Resulted NO GROWTH AFTER 1 DAY 07/08/16 Fecal Leukocyte Stain - Final, Complete 07/06/16 Urine Culture - Final, Complete 07/06/16 Urine Culture Result 1 (NEGRITO) - Final, Complete 07/06/16 Gram Stain - Final, Complete Review of Systems Constitutional: yes: alert, weakness Ears/Nose/Throat: Yes: no symptom reported Eyes: Yes: no symptom reported Pulmonary: Yes dyspnea Cardiovascular: Yes no symptom reported Musculoskeletal: Yes: muscle stiffness Skin: Yes no symptom reported Physical Exam General Appearance: no apparent distress Skin: warm Respiratory: decreased breath sounds Heart: S1S2, RRR Neurology: alert, oriented Assessment Assessment IMP ESRD LINE INFECTION ANEMIA HYPERVOLEMIA PLAN ANTIBIOTICS HD TODAY UF TO DW WILL THEN HAVE TUNNELED HD CATHETER NEXT WK ONCE CULTURES ARE CLEAR D/W ID MELITON SÁNCHEZ MD Jul 09, 2016 12:38
--- NOTE | 2016-07-09 12:39 | RAD ---
Portable chest, 07/09/2016: History: Check catheter placement Comparison is made to a study from 07/06/2016. The right-sided catheter has been removed and a left jugular catheter has been inserted extending the deep into the right atrium. The heart is mildly enlarged. There is calcific plaquing of the aorta. There is mild unchanged fissural thickening on the right which may reflect subpleural edema or a tiny amount of pleural fluid. There is mild prominence of the basilar pulmonary markings. There is no evidence of pneumothorax. IMPRESSION: 1. The new left jugular analysis type catheter extends into the right atrium. 2. Cardiomegaly with mild bibasilar atelectasis/infiltrate.
--- NOTE | 2016-07-09 13:41 | PDOC ---
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 Her left ankle still exhibited swelling and erythema, and it was tender. Her right heel was noted to have an eschar as a result of a pressure ulcer. A bandage was placed over the top of it. Vitals Vitals Vital Signs Date Time Temp Pulse Resp B/P Pulse Ox O2 Delivery O2 Flow Rate FiO2 07/09/16 11:00 97.6 67 20 110/56 96 Nasal Cannula 3.0 97.6 Physical Exam General: Cooperative, No acute distress Heart: Regular rate, Normal S1, Normal S2 Lungs: Clear, Other (No chest retractions were present) Abdomen: Soft, No masses Extremities: No clubbing, No cyanosis Skin: No rashes, No breakdown Labs LABS Laboratory Tests Test 07/08/16 17:01 07/08/16 20:09 07/09/16 04:10 07/09/16 08:01 Glucose (Fingerstick) 244mg/dL (70-99) 277mg/dL (70-99) 175mg/dL (70-99) Sodium Level 133mmol/L (136-145) Potassium Level 4.1mmol/L (3.5-5.1) Chloride Level 96mmol/L (98-107) Carbon Dioxide Level 23mmol/L (21-32) Anion Gap 14 (6-14) Blood Urea Nitrogen 90mg/dL (7-20) Creatinine 7.7mg/dL (0.6-1.0) Estimated GFR (Cockcroft-Gault) 5.4 Glucose Level 225mg/dL (70-99) Calcium Level 7.7mg/dL (8.5-10.1) Random Vancomycin Level 26.1mcg/mL Test 07/09/16 11:24 Glucose (Fingerstick) 171mg/dL (70-99) Review of Systems Review of Systems The patient reports her left elbow is still hurting. She has not had any nausea , lightheadedness, or dizziness. She does not have dysuria or suprapubic pain. Assessment and Plan Assessmemt and Plan Problems Medical Problems: (1) Anemia Status: Acute (2) End stage renal disease Status: Acute (3) Generalized weakness Status: Acute (4) Healthcare-associated pneumonia Status: Acute (5) Sepsis Status: Acute (6) Transient hypotension Status: Acute (7) Urinary tract infection Status: Acute Ms. Rogers is a 60 year old female that presented with a 5 day history of diarrhea. 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 Referral to a SNF 2. PT/OT pending 3. Consult Dr. Mccarty for shoulder pain 4. Monitor vitals for hypotension 5. Continue antibiotics with vancomycin 6. Continue home medications 7. Continue pain management with tramadol, Lortab, and acetaminophen 8. Continue topical antifungal treatment with nystatin 9. Appreciate consultation from nephrology, ID, GI, IR, and pulmonology Problems: Comment Review of Relevant I have reviewed the following items dominga (where applicable) has been applied. Labs Laboratory Tests Test 07/07/16 17:18 07/07/16 21:06 07/08/16 03:00 07/08/16 08:08 Glucose (Fingerstick) 176mg/dL (70-99) 279mg/dL (70-99) 184mg/dL (70-99) White Blood Count 10.9x10^3/uL (4.0-11.0) Red Blood Count 3.75x10^6/uL (3.50-5.40) Hemoglobin 10.0g/dL (12.0-15.5) Hematocrit 31.8% (36.0-47.0) Mean Corpuscular Volume 85fL (79-100) Mean Corpuscular Hemoglobin 27pg (25-35) Mean Corpuscular Hemoglobin Concent 32g/dL (31-37) Red Cell Distribution Width 16.8% (11.5-14.5) Platelet Count 134x10^3/uL (140-400) Sodium Level 137mmol/L (136-145) Potassium Level 4.0mmol/L (3.5-5.1) Chloride Level 100mmol/L (98-107) Carbon Dioxide Level 24mmol/L (21-32) Anion Gap 13 (6-14) Blood Urea Nitrogen 76mg/dL (7-20) Creatinine 7.1mg/dL (0.6-1.0) Estimated GFR (Cockcroft-Gault) 5.9 Glucose Level 242mg/dL (70-99) Calcium Level 7.6mg/dL (8.5-10.1) Test 07/08/16 11:51 07/08/16 17:01 07/08/16 20:09 07/09/16 04:10 Glucose (Fingerstick) 230mg/dL (70-99) 244mg/dL (70-99) 277mg/dL (70-99) Sodium Level 133mmol/L (136-145) Potassium Level 4.1mmol/L (3.5-5.1) Chloride Level 96mmol/L (98-107) Carbon Dioxide Level 23mmol/L (21-32) Anion Gap 14 (6-14) Blood Urea Nitrogen 90mg/dL (7-20) Creatinine 7.7mg/dL (0.6-1.0) Estimated GFR (Cockcroft-Gault) 5.4 Glucose Level 225mg/dL (70-99) Calcium Level 7.7mg/dL (8.5-10.1) Random Vancomycin Level 26.1mcg/mL Test 07/09/16 08:01 07/09/16 11:24 Glucose (Fingerstick) 175mg/dL (70-99) 171mg/dL (70-99) Laboratory Tests Test 07/08/16 17:01 07/08/16 20:09 07/09/16 04:10 07/09/16 08:01 Glucose (Fingerstick) 244mg/dL (70-99) 277mg/dL (70-99) 175mg/dL (70-99) Sodium Level 133mmol/L (136-145) Potassium Level 4.1mmol/L (3.5-5.1) Chloride Level 96mmol/L (98-107) Carbon Dioxide Level 23mmol/L (21-32) Anion Gap 14 (6-14) Blood Urea Nitrogen 90mg/dL (7-20) Creatinine 7.7mg/dL (0.6-1.0) Estimated GFR (Cockcroft-Gault) 5.4 Glucose Level 225mg/dL (70-99) Calcium Level 7.7mg/dL (8.5-10.1) Random Vancomycin Level 26.1mcg/mL Test 07/09/16 11:24 Glucose (Fingerstick) 171mg/dL (70-99) Microbiology 07/08/16 Blood Culture - Final, Complete 07/08/16 Fecal Leukocyte Stain - Final, Complete 07/06/16 Urine Culture - Final, Complete 07/06/16 Urine Culture Result 1 (NEGRITO) - Final, Complete 07/06/16 Gram Stain - Final, Complete Medications Current Medications Sodium Chloride (Iv Sodium Chloride 0.9% 500ml Bag) 500 ml @ 1,000 mls/hr 1X ONCE IV Last administered on 07/06/16 13:33; Start 07/06/16 at 12:45; Stop 01/12 at 13:14; Status DC Ondansetron HCl (Zofran) 4 mg 1X ONCE IV Last administered on 07/06/16 13:33 ; Start 07/06/16 at 12:45; Stop 07/06/16 at 12:46; Status DC Vancomycin HCl (Vanco Per Pharmacy) 1 each PRN DAILY PRN MC SEE COMMENTS Last administered on 07/08/16 13:14; Start 07/06/16 at 14:00 Piperacillin Sod/ Tazobactam Sod (Zosyn Per Pharmacy) 1 each PRN DAILY PRN MC SEE COMMENTS; Start 07/06/16 at 14:00; Stop 07/08/16 at 09:55; Status DC Levofloxacin/ Dextrose 1 each 1 each PRN DAILY PRN MC SEE COMMENTS; Start 07/06 at 14:00; Stop 07/08/16 at 09:55; Status DC Vancomycin HCl/ Sodium Chloride (Iv Sodium Chloride 0.9% 500ml Bag) 500 ml @ 250 mls/hr 1X ONCE IV Last administered on 07/06/16 15:03; Start 07/06/16 at 14:15; Stop 07/06/16 at 16:14; Status DC Ondansetron HCl (Zofran) 4 mg PRN Q8HRS PRN IV NAUSEA/VOMITING; Start 07/06/16 at 14:30; Stop 07/07/16 at 14:29; Status DC Morphine Sulfate 2 mg PRN Q2HR PRN IV PAIN; Start 07/06/16 at 14:30; Stop 07/07 at 14:29; Status DC Acetaminophen 650 mg 650 mg PRN Q4HRS PRN PO FEVER Last administered on 05:17; Start 07/06/16 at 14:30; Stop 07/07/16 at 14:29; Status DC Piperacillin Sod/ Tazobactam Sod 2.25 gm/Sodium Chloride 50 ml @ 100 mls/hr Q8HRS IV Last administered on 07/08/16 05:17; Start 07/06/16 at 15:00; Stop at 09:55; Status DC Levofloxacin/ Dextrose (LEVAQUIN 500mg PREMIX) 100 ml @ 100 mls/hr Q48H IV Last administered on 07/06/16 17:36; Start 07/06/16 at 15:00; Stop 07/08/16 at 09:55; Status DC Darbepoetin Naif 60 mcg 60 mcg WEEKLYHS SQ Last administered on 07/06/16 19:31 ; Start 07/06/16 at 21:00 Sodium Chloride (Iv Sodium Chloride 0.9% 1000ml Bag) 1,000 ml @ 1,000 mls/hr Q1H PRN IV hypotension; Start 07/06/16 at 23:29; Stop 07/07/16 at 05:28; Status DC Sodium Chloride (Normal Saline Flush) 10 ml 1X PRN PRN IV AP catheter pack; Start 07/06/16 at 23:30; Stop 07/07/16 at 23:29; Status DC Sodium Chloride (Normal Saline Flush) 10 ml 1X PRN PRN IV URINALYSIS TECHNICIAN catheter pack; Start 07/06/16 at 23:30; Stop 07/07/16 at 23:29; Status DC Info (PHARMACY MONITORING -- do not chart) 1 each PRN DAILY PRN MC SEE COMMENTS ; Start 07/06/16 at 23:30 Info 1 each 1 each PRN DAILY PRN MC SEE COMMENTS; Start 07/06/16 at 23:30; Stop 07/07/16 at 13:09; Status DC Vancomycin HCl/ Sodium Chloride (Iv Sodium Chloride 0.9% 250ml) 250 ml @ 250 mls/hr 1X ONCE IV Last administered on 07/07/16 06:36; Start 07/07/16 at 06: 30; Stop 07/07/16 at 07:29; Status DC Nystatin (Nystop) 1 stephan BID TP Last administered on 07/08/16 20:21; Start 02/12 at 14:00 Oxycodone HCl (Roxicodone) 5 mg PRN Q4HRS PRN PO PAIN; Start 07/07/16 at 18:00 ; Stop 07/07/16 at 18:38; Status DC Acetaminophen (Tylenol) 650 mg PRN Q6HRS PRN PO MILD PAIN / TEMP Last administered on 07/08/16 04:45; Start 07/07/16 at 18:45 Tramadol HCl (Ultram) 50 mg PRN Q6HRS PRN PO MODERATE PAIN Last administered on 07/08/16 04:45; Start 07/07/16 at 18:45 Acetaminophen/ Hydrocodone Bitart (Lortab 5/325) 1 tab PRN Q4HRS PRN PO SEVERE PAIN Last administered on 07/08/16 20:20; Start 07/08/16 at 09:30 Vancomycin HCl 1 each 1X ONCE MC Last administered on 07/09/16 05:31; Start 07/09/16 at 05:00; Stop 07/09/16 at 05:01; Status DC Amiodarone HCl (Cordarone) 200 mg BID PO Last administered on 07/08/16 20:21; Start 07/08/16 at 21:00 Aripiprazole (Abilify) 2.5 mg DAILY PO ; Start 07/09/16 at 09:00 Aspirin (Ecotrin) 81 mg DAILY PO ; Start 07/08/16 at 15:00 Atorvastatin Calcium (Lipitor) 20 mg HS PO Last administered on 07/08/16 20:20 ; Start 07/08/16 at 21:00 Buspirone HCl (Buspar) 5 mg TID PO Last administered on 07/08/16 20:20; Start 07/08/16 at 15:00 Clonidine HCl (Catapres) 0.2 mg DAILY PO ; Start 07/09/16 at 09:00 Docusate Sodium (Colace) 100 mg BID PO ; Start 07/08/16 at 21:00 Ferrous Sulfate (Feosol) 325 mg DAILY PO ; Start 07/09/16 at 09:00 Heparin Sodium (Porcine) 5,000 unit TID SQ ; Start 07/08/16 at 15:00 Albuterol/ Ipratropium (Duoneb) 3 ml PRN QID PRN NEB SHORTNESS OF BREATH; Start 07/08/16 at 14:45 Labetalol HCl (Normodyne) 10 mg PRN BID PRN IVP HYPERTENSION, SEE COMMENTS; Start 07/08/16 at 15:15 Nystatin (Nystop) 1 stephan BID TP ; Start 07/08/16 at 21:00; Status Cancel Mirtazapine (Remeron) 7.5 mg DAILY PO ; Start 07/09/16 at 09:00 Polyethylene Glycol (miraLAX PACKET) 17 gm DAILY PO ; Start 07/09/16 at 09:00 Sennosides (Senna) 8.6 mg DAILY PO ; Start 07/09/16 at 09:00 Non-Formulary Medication 100 mcg WEEKLY SQ TO TREAT ANEMIA; Start 07/15/16 at 09 :00; Status UNV Diltiazem HCl (Cardizem 24hr Cd) 360 mg DAILY PO ; Start 07/09/16 at 09:00 Escitalopram Oxalate (Lexapro) 20 mg DAILY PO ; Start 07/09/16 at 09:00 Vitamin B Complex/ Vitamin C (Zoe-Kiran) 1 tab DAILY PO ; Start 07/09/16 at 09: 00 Gabapentin (Neurontin) 600 mg BID PO Last administered on 07/08/16t 20:20; Start 07/08/16 at 21:00 Non-Formulary Medication 9 mg DAILY PO ; Start 07/09/16 at 09:00; Status UNV Insulin Aspart (Novolog) 10 units TIDAC SQ Last administered on 07/08/16 17:09 ; Start 07/08/16 at 16:30 Heparin Sodium (Porcine) (Heparin Sodium) 10,000 unit STK-MED ONCE .ROUTE ; Start 07/09/16 at 11:22; Stop 07/09/16 at 11:23; Status DC Lidocaine/Sodium Bicarbonate 20 ml 20 ml STK-MED ONCE IJ ; Start 07/09/16 at 11: 22; Stop 07/09/16 at 11:23; Status DC Heparin Sodium/ Sodium Chloride 500 ml @ As Directed STK-MED ONCE .ROUTE ; Start 07/09/16 at 11:22; Stop 07/09/16 at 11:23; Status DC Heparin Sodium/ Sodium Chloride 60 unit 1X ONCE IV Last administered on 12:21; Start 07/09/16 at 11:45; Stop 07/09/16 at 11:51; Status DC Heparin Sodium (Porcine) (Heparin Sodium) 2,500 unit 1X ONCE INT CAT Last administered on 07/09/16 12:21; Start 07/09/16 at 11:45; Stop 07/09/16 at 11:51 ; Status DC Lidocaine/Sodium Bicarbonate (Buffered Lidocaine 1%) 3 ml 1X ONCE IJ Last administered on 07/09/16 12:20; Start 07/09/16 at 11:45; Stop 07/09/16 at 11:51 ; Status DC Active Scripts Active Reported Amiodarone Hcl 200 Mg Tablet 200 Mg PO BID Aspir 81 (Aspirin) 81 Mg Tablet.dr 81 Mg PO DAILY Atorvastatin Calcium 20 Mg Tablet 20 Mg PO HS Cardizem Cd (Diltiazem Hcl) 360 Mg Cap.er.24h 360 Mg PO DAILY Docusate Sodium 100 Mg Capsule 100 Mg PO BID Melatonin 3 Mg Tablet 9 Mg PO DAILY Polyethylene Glycol 3350 17 Gm Powd.pack 17 Gm PO DAILY Senna (Sennosides) 8.6 Mg Tablet 8.6 Mg PO DAILY Clonidine Hcl 0.2 Mg Tablet 0.2 Mg PO DAILY Micro-Guard (Miconazole Nitrate) 85 Gm Powder 85 Gm TP BID Humalog (Insulin Lispro) 100 Unit/1 Ml Vial 100 Unit SQ Buspirone Hcl 5 Mg Tablet 5 Mg PO TID Aranesp Vial (Darbepoetin Naif In Polysorbat) 100 Mcg/1 Ml Vial 100 Mcg SQ WEEKLY Nephron Fa Tablet (Fe Fumarate/Dinorah/Fa/Bcomp&C) 1 Each Tablet 1 Each PO DAILY Ferrous Sulfate 325 Mg Tablet 1 Tab PO DAILY Escitalopram Oxalate 20 Mg Tablet 20 Mg PO DAILY Duoneb 0.5-3(2.5) Mg/3 Ml (Albuterol/Ipratropium) 3 Ml Ampul.neb 3 Ml NEB QID PRN Gabapentin 600 Mg Tablet 600 Mg PO BID Mirtazapine 7.5 Mg Tablet 7.5 Mg PO DAILY Abilify (Aripiprazole) 2 Mg Tablet 2.5 Mg PO DAILY Labetalol Hcl 5 Mg/1 Ml Vial 10 Mg IV PRN Heparin Sod 5,000 Unit/ 0.5 Ml (Heparin Sodium,Porcine/Pf) 5,000 Unit/0.5 Ml Vial 5,000 Unit IJ TID Novolin N (Nph, Human Insulin Isophane) 100 Unit/1 Ml Vial 100 Unit SQ PRN Vitals/I & O Vital Sign - Last 24 Hours 07/08/16 07/08/16 07/08/16 07/08/16 14:36 19:00 20:00 20:21 Temp 98.1 97.0 98.1 97.0 Pulse 76 67 67 Resp 21 20 B/P 110/54 105/71 105/71 Pulse Ox 98 99 O2 Delivery Nasal Cannula Nasal Cannula Nasal Cannula O2 Flow Rate 3.0 3.0 07/08/16 07/09/16 07/09/16 07/09/16 23:00 03:01 07:00 11:00 Temp 96.1 96.9 97.9 97.6 96.1 96.9 97.9 97.6 Pulse 69 66 70 67 Resp 20 20 20 20 B/P 107/43 106/49 105/42 110/56 Pulse Ox 97 94 97 96 O2 Delivery Nasal Cannula Nasal Cannula Nasal Cannula Nasal Cannula O2 Flow Rate 3.0 3.0 Intake and Output 07/08/16 07/08/16 07/09/16 15:00 23:00 07:00 Intake Total 450 ml 1300 ml Balance 450 ml 1300 ml Nutrition Consultation Dietary Evaluation: Recommendations by RD: Increase Calorie Intake, Protein supplementation Comments: Changed boost [facility] to [facility] renal TID - 475kcal and 21.6g protein Expected Outcomes/Goals: diet advancement: met new goal: to meet >75% est nutr needs Malnutrition Findings: Food and Nutrition Intake (Mod: <75% est energy req 7days Weight Status: Morbidly Obese Fluid Accumulation (Non-Severe: Mild depletion BIPIN RICHMOND III DO Jul 09, 2016 13:41
[2016-07-09] MEDS ORDERED: BUPIVACAINE MPF 0.25% 10 ML VIAL. IJ ONE (14:45)
[2016-07-09] MEDS ORDERED: methylPREDNISolone ACETATE 40 MG/ML VIAL. IM ONE (14:45)
[2016-07-09] MEDS: VANCOMYCIN PER PHARMACY MC PRN ×2 (15:02→21:09)
--- NOTE | 2016-07-09 15:13 | PDOC4 ---
PROCEDURE Procedure At her request,I have injected painful left lateral humeral epicondylar area with marcaine and depomedrol solution under aseptic skin technique,and she tolerated the procedure satisfactorily without any side effects. SHAZIA COLEMAN MD Jul 09, 2016 15:13
[2016-07-09] MEDS ORDERED: DIALYSIS PATIENT. MC PRN (15:15)
[2016-07-09] MEDS ORDERED: ACETAMINOPHEN 500 MG TABLET PO PRN (15:15)
[2016-07-09] MEDS ORDERED: LABETALOL 20 MG/4 ML DISP.SYRIN. IVP PRN (15:15)
[2016-07-09] MEDS ORDERED: cloNIDine HCL 0.1 MG TABLET PO PRN (15:15)
[2016-07-09] MEDS ORDERED: IV NORMAL SALINE 1000ML BAG 1,000 ML IV PRN (15:15)
[2016-07-09] MEDS ORDERED: ALBUMIN HUMAN 25% 200 ML IV PRN (15:15)
[2016-07-09] MEDS ORDERED: diphenhydrAMINE 50 MG/ML VIAL IV PRN ×2 (15:15)
--- NOTE | 2016-07-09 15:28 | PDOC ---
PULMONARY PROGRESS NOTES Subjective pt feels better Vitals Vital Signs Date Time Temp Pulse Resp B/P Pulse Ox O2 Delivery O2 Flow Rate FiO2 07/09/16 11:00 97.6 67 20 110/56 96 Nasal Cannula 3.0 97.6 ROS: No Nausea, No Chest Pain, No Abdominal Pain, No Increase Cough General: Alert Lungs: Clear, Other (No chest retractions were present) Cardiovascular: S1, S2 Abdomen: Soft Neuro Exam: Alert Extremities: No Edema Skin: Warm Labs Laboratory Tests Test 07/07/16 17:18 07/07/16 21:06 07/08/16 03:00 07/08/16 08:08 Glucose (Fingerstick) 176mg/dL (70-99) 279mg/dL (70-99) 184mg/dL (70-99) White Blood Count 10.9x10^3/uL (4.0-11.0) Red Blood Count 3.75x10^6/uL (3.50-5.40) Hemoglobin 10.0g/dL (12.0-15.5) Hematocrit 31.8% (36.0-47.0) Mean Corpuscular Volume 85fL (79-100) Mean Corpuscular Hemoglobin 27pg (25-35) Mean Corpuscular Hemoglobin Concent 32g/dL (31-37) Red Cell Distribution Width 16.8% (11.5-14.5) Platelet Count 134x10^3/uL (140-400) Sodium Level 137mmol/L (136-145) Potassium Level 4.0mmol/L (3.5-5.1) Chloride Level 100mmol/L (98-107) Carbon Dioxide Level 24mmol/L (21-32) Anion Gap 13 (6-14) Blood Urea Nitrogen 76mg/dL (7-20) Creatinine 7.1mg/dL (0.6-1.0) Estimated GFR (Cockcroft-Gault) 5.9 Glucose Level 242mg/dL (70-99) Calcium Level 7.6mg/dL (8.5-10.1) Test 07/08/16 11:51 07/08/16 17:01 07/08/16 20:09 07/09/16 04:10 Glucose (Fingerstick) 230mg/dL (70-99) 244mg/dL (70-99) 277mg/dL (70-99) Sodium Level 133mmol/L (136-145) Potassium Level 4.1mmol/L (3.5-5.1) Chloride Level 96mmol/L (98-107) Carbon Dioxide Level 23mmol/L (21-32) Anion Gap 14 (6-14) Blood Urea Nitrogen 90mg/dL (7-20) Creatinine 7.7mg/dL (0.6-1.0) Estimated GFR (Cockcroft-Gault) 5.4 Glucose Level 225mg/dL (70-99) Calcium Level 7.7mg/dL (8.5-10.1) Random Vancomycin Level 26.1mcg/mL Test 07/09/16 08:01 07/09/16 11:24 Glucose (Fingerstick) 175mg/dL (70-99) 171mg/dL (70-99) Laboratory Tests Test 07/08/16 17:01 07/08/16 20:09 07/09/16 04:10 07/09/16 08:01 Glucose (Fingerstick) 244mg/dL (70-99) 277mg/dL (70-99) 175mg/dL (70-99) Sodium Level 133mmol/L (136-145) Potassium Level 4.1mmol/L (3.5-5.1) Chloride Level 96mmol/L (98-107) Carbon Dioxide Level 23mmol/L (21-32) Anion Gap 14 (6-14) Blood Urea Nitrogen 90mg/dL (7-20) Creatinine 7.7mg/dL (0.6-1.0) Estimated GFR (Cockcroft-Gault) 5.4 Glucose Level 225mg/dL (70-99) Calcium Level 7.7mg/dL (8.5-10.1) Random Vancomycin Level 26.1mcg/mL Test 07/09/16 11:24 Glucose (Fingerstick) 171mg/dL (70-99) Medications Active Scripts Medications Dose Route/Sig Days Date Category Amiodarone Hcl 200 Mg Tablet 200 Mg PO BID 08/28/15 Reported Aspir 81 (Aspirin) 81 Mg Tablet.dr 81 Mg PO DAILY 08/28/15 Reported Atorvastatin Calcium 20 Mg Tablet 20 Mg PO HS 08/28/15 Reported Cardizem Cd (Diltiazem Hcl) 360 Mg Cap.er.24h 360 Mg PO DAILY 08/28/15 Reported Docusate Sodium 100 Mg Capsule 100 Mg PO BID 08/28/15 Reported Melatonin 3 Mg Tablet 9 Mg PO DAILY 08/28/15 Reported Polyethylene Glycol 3350 17 Gm Powd.pack 17 Gm PO DAILY 08/28/15 Reported Senna (Sennosides) 8.6 Mg Tablet 8.6 Mg PO DAILY 08/28/15 Reported Clonidine Hcl 0.2 Mg Tablet 0.2 Mg PO DAILY 08/28/15 Reported Micro-Guard (Miconazole Nitrate) 85 Gm Powder 85 Gm TP BID 08/28/15 Reported Humalog (Insulin Lispro) 100 Unit/1 Ml Vial 100 Unit SQ 08/28/15 Reported Buspirone Hcl 5 Mg Tablet 5 Mg PO TID 08/28/15 Reported Aranesp Vial (Darbepoetin Naif In Polysorbat) 100 Mcg/1 Ml Vial 100 Mcg SQ WEEKLY 08/28/15 Reported Nephron Fa Tablet (Fe Fumarate/Dinorah/Fa/Bcomp&C) 1 Each Tablet 1 Each PO DAILY 08/28/15 Reported Ferrous Sulfate 325 Mg Tablet 1 Tab PO DAILY 08/28/15 Reported Escitalopram Oxalate 20 Mg Tablet 20 Mg PO DAILY 08/28/15 Reported Duoneb 0.5-3(2.5) Mg/3 Ml (Albuterol/Ipratropium) 3 Ml Ampul.neb 3 Ml NEB QID PRN 08/28/15 Reported Gabapentin 600 Mg Tablet 600 Mg PO BID 08/28/15 Reported Mirtazapine 7.5 Mg Tablet 7.5 Mg PO DAILY 08/28/15 Reported Abilify (Aripiprazole) 2 Mg Tablet 2.5 Mg PO DAILY 08/28/15 Reported Labetalol Hcl 5 Mg/1 Ml Vial 10 Mg IV PRN 08/28/15 Reported Heparin Sod 5,000 Unit/ 0.5 Ml (Heparin Sodium,Porcine/Pf) 5,000 Unit/0.5 Ml Vial 5,000 Unit IJ TID 08/28/15 Reported Novolin N (Nph, Human Insulin Isophane) 100 Unit/1 Ml Vial 100 Unit SQ PRN 05/31/13 Reported Impression . 1. Acute respiratory failure, suspect sepsis. 2. Sepsis secondary to urinary tract infection. 3. Possible obstructive sleep apnea. 4. End-stage renal disease, noncompliant. 5. Type 2 diabetes. 6. Depression. 7. Hyperlipidemia. Plan . d/w , will continue the same resp status is compensated 1. Continue current antibiotics and deescalate once blood cultures and urine cultures are back. 2. Possible outpatient polysomnogram, will check nocturnal desaturation study prior to discharge. 3. Continue home meds. 4. follow nephro input, new cath for HD 5. follow Gi input FARIDEH COOK MD Jul 09, 2016 15:28
[2016-07-09] MEDS: HYDROCODONE/APAP 5/325MG TABLET. PO PRN (20:23)
[2016-07-09] MEDS: ATORVASTATIN CALCIUM 20 MG TABLET PO SCH (20:25)
[2016-07-10 03:00] VITALS: BP 109/46
[2016-07-10 05:42] LABS: HEMATOCRIT 33.1 % (36.0-47.0); HEMOGLOBIN 10.3 g/dL (12.0-15.5); RED BLOOD COUNT 3.98 x10^6/uL (3.50-5.40); RED CELL DISTRIBUTION WIDTH 17.3 % (11.5-14.5); WHITE BLOOD COUNT 11.2 x10^3/uL (4.0-11.0)
[2016-07-10 06:57] LABS: CALCIUM 7.4 mg/dL (8.5-10.1); CREATININE 5.1 mg/dL (0.6-1.0); GFR 8.7; POTASSIUM 4.6 mmol/L (3.5-5.1)
[2016-07-10 07:00] VITALS: BP 156/71
--- NOTE | 2016-07-10 07:02 | RAD ---
Bedside ultrasound-guided left IJ temporary hemodialysis catheter insertion Indication: 60-year-old female with end-stage renal disease. Her infected right IJ tunneled hemodialysis catheter has been removed. Temporary dialysis catheter insertion has been requested by renal for ongoing hemodialysis. Anesthesia: Local only Sterility: All elements of maximal sterile barrier technique, including the use of a cap, mask, sterile gown, sterile gloves, large sterile sheet, appropriate hand hygiene, and 2% chlorhexidine for cutaneous antisepsis (or acceptable alternative antiseptic per current guidelines) were utilized. Procedure: Informed consent was obtained from the patient. This procedure was performed in the angiography suite with the patient in her hospital bed. Preliminary ultrasound examination of left neck revealed wide patency of left internal jugular vein, which was documented with a single hard copy ultrasound image. Left neck was then prepped and draped in the usual sterile fashion, utilizing all elements of maximal sterile barrier technique, as described above. Using aseptic technique, local anesthesia, direct ultrasound guidance, and the micropuncture system, successful percutaneous entry was achieved into left internal jugular vein. The left IJ venostomy tract was then dilated and a 14 Somali 24 cm Schon temporary hemodialysis catheter was easily advanced centrally over an angiographic guidewire. The catheter was documented to flush and aspirate normally, was packed, and was secured at the left neck exit site utilizing suture and sterile dressing. Patient tolerated the procedure well without apparent complication. A stat portable chest x-ray was requested for line position. Impression: Successful, uneventful ultrasound guided placement of left IJ 14 Somali 24 cm Schon temporary hemodialysis catheter, bedside in the angiography suite, as described.
[2016-07-10] MEDS: busPIRone 5 MG TABLET. PO SCH ×3 (09:00→21:00)
[2016-07-10] MEDS: POLYETHYLENE GLYCOL 3350 17 GM PACKET. PO SCH (09:00)
[2016-07-10] MEDS: HEPARIN PF for SUB-Q USE 5,000 UNIT/0.5 ML VIAL. SQ SCH ×3 (09:00→21:07)
[2016-07-10] MEDS: NYSTATIN TOPICAL POWDER 15GM BOTTLE. TP SCH ×2 (09:01→21:00)
[2016-07-10] MEDS: AMIODARONE HCL 200 MG TABLET. PO SCH ×2 (09:02→21:01)
[2016-07-10] MEDS: cloNIDine HCL 0.2 MG TABLET PO SCH (09:02)
[2016-07-10] MEDS: INSULIN ASPART 300 UNITS/3 ML INSULN.PEN SQ SCH ×3 (09:12→17:30)
--- NOTE | 2016-07-10 09:17 | PDOC ---
PROGRESS NOTES Subjective Subjective She feels less pain left upper extremity. Objective Objective Vital Signs Date Time Temp Pulse Resp B/P Pulse Ox O2 Delivery O2 Flow Rate FiO2 07/10/16 09:03 80 156/71 07/10/16 07:00 97.6 19 85 Room Air 97.6 07/10/16 03:00 3.0 Intake and Output 07/10/16 07:00 Intake Total 1600 ml Output Total 0 ml Balance 1600 ml Intake Oral 1600 ml Output Urine Total 0 ml # Voids 4 # Bowel Movements 1 Physical Exam Physical Exam She is supine in bed and try to get up with physical and occupational therapy. Assessment Assessment Problems Medical Problems: (1) Anemia Status: Acute (2) End stage renal disease Status: Acute (3) Generalized weakness Status: Acute (4) Healthcare-associated pneumonia Status: Acute (5) Sepsis Status: Acute (6) Transient hypotension Status: Acute (7) Urinary tract infection Status: Acute Plan Plan of Care To get her up as tolerated. Comment Review of Relevant I have reviewed the following items dominga (where applicable) has been applied. Labs Laboratory Tests Test 07/08/16 11:51 07/08/16 17:01 07/08/16 20:09 07/08/16 20:20 Glucose (Fingerstick) 230mg/dL (70-99) 244mg/dL (70-99) 277mg/dL (70-99) Clostridium difficile Toxin (PCR) Negative (Negative) Test 07/09/16 04:10 07/09/16 08:01 07/09/16 11:24 07/09/16 20:42 Sodium Level 133mmol/L (136-145) Potassium Level 4.1mmol/L (3.5-5.1) Chloride Level 96mmol/L (98-107) Carbon Dioxide Level 23mmol/L (21-32) Anion Gap 14 (6-14) Blood Urea Nitrogen 90mg/dL (7-20) Creatinine 7.7mg/dL (0.6-1.0) Estimated GFR (Cockcroft-Gault) 5.4 Glucose Level 225mg/dL (70-99) Calcium Level 7.7mg/dL (8.5-10.1) Random Vancomycin Level 26.1mcg/mL Glucose (Fingerstick) 175mg/dL (70-99) 171mg/dL (70-99) 208mg/dL (70-99) Test 07/10/16 04:25 07/10/16 08:00 White Blood Count 11.2x10^3/uL (4.0-11.0) Red Blood Count 3.98x10^6/uL (3.50-5.40) Hemoglobin 10.3g/dL (12.0-15.5) Hematocrit 33.1% (36.0-47.0) Mean Corpuscular Volume 83fL (79-100) Mean Corpuscular Hemoglobin 26pg (25-35) Mean Corpuscular Hemoglobin Concent 31g/dL (31-37) Red Cell Distribution Width 17.3% (11.5-14.5) Platelet Count 180x10^3/uL (140-400) Sodium Level 133mmol/L (136-145) Potassium Level 4.6mmol/L (3.5-5.1) Chloride Level 96mmol/L (98-107) Carbon Dioxide Level 25mmol/L (21-32) Anion Gap 12 (6-14) Blood Urea Nitrogen 55mg/dL (7-20) Creatinine 5.1mg/dL (0.6-1.0) Estimated GFR (Cockcroft-Gault) 8.7 Glucose Level 283mg/dL (70-99) Calcium Level 7.4mg/dL (8.5-10.1) Glucose (Fingerstick) 284mg/dL (70-99) Laboratory Tests Test 07/09/16 11:24 07/09/16 20:42 07/10/16 04:25 07/10/16 08:00 Glucose (Fingerstick) 171mg/dL (70-99) 208mg/dL (70-99) 284mg/dL (70-99) White Blood Count 11.2x10^3/uL (4.0-11.0) Red Blood Count 3.98x10^6/uL (3.50-5.40) Hemoglobin 10.3g/dL (12.0-15.5) Hematocrit 33.1% (36.0-47.0) Mean Corpuscular Volume 83fL (79-100) Mean Corpuscular Hemoglobin 26pg (25-35) Mean Corpuscular Hemoglobin Concent 31g/dL (31-37) Red Cell Distribution Width 17.3% (11.5-14.5) Platelet Count 180x10^3/uL (140-400) Sodium Level 133mmol/L (136-145) Potassium Level 4.6mmol/L (3.5-5.1) Chloride Level 96mmol/L (98-107) Carbon Dioxide Level 25mmol/L (21-32) Anion Gap 12 (6-14) Blood Urea Nitrogen 55mg/dL (7-20) Creatinine 5.1mg/dL (0.6-1.0) Estimated GFR (Cockcroft-Gault) 8.7 Glucose Level 283mg/dL (70-99) Calcium Level 7.4mg/dL (8.5-10.1) Microbiology 07/08/16 Blood Culture - Final, Complete 07/08/16 Fecal Leukocyte Stain - Final, Complete 07/06/16 Urine Culture - Final, Complete 07/06/16 Urine Culture Result 1 (NEGRITO) - Final, Complete 07/06/16 Gram Stain - Final, Complete Medications Current Medications Sodium Chloride (Iv Sodium Chloride 0.9% 500ml Bag) 500 ml @ 1,000 mls/hr 1X ONCE IV Last administered on 07/06/16 13:33; Start 07/06/16 at 12:45; Stop 01/12 at 13:14; Status DC Ondansetron HCl (Zofran) 4 mg 1X ONCE IV Last administered on 07/06/16 13:33 ; Start 07/06/16 at 12:45; Stop 07/06/16 at 12:46; Status DC Vancomycin HCl (Vanco Per Pharmacy) 1 each PRN DAILY PRN MC SEE COMMENTS Last administered on 07/09/16 21:09; Start 07/06/16 at 14:00 Piperacillin Sod/ Tazobactam Sod (Zosyn Per Pharmacy) 1 each PRN DAILY PRN MC SEE COMMENTS; Start 07/06/16 at 14:00; Stop 07/08/16 at 09:55; Status DC Levofloxacin/ Dextrose 1 each 1 each PRN DAILY PRN MC SEE COMMENTS; Start 07/06 at 14:00; Stop 07/08/16 at 09:55; Status DC Vancomycin HCl/ Sodium Chloride (Iv Sodium Chloride 0.9% 500ml Bag) 500 ml @ 250 mls/hr 1X ONCE IV Last administered on 07/06/16 15:03; Start 07/06/16 at 14:15; Stop 07/06/16 at 16:14; Status DC Ondansetron HCl (Zofran) 4 mg PRN Q8HRS PRN IV NAUSEA/VOMITING; Start 07/06/16 at 14:30; Stop 07/07/16 at 14:29; Status DC Morphine Sulfate 2 mg PRN Q2HR PRN IV PAIN; Start 07/06/16 at 14:30; Stop 07/07 at 14:29; Status DC Acetaminophen 650 mg 650 mg PRN Q4HRS PRN PO FEVER Last administered on 05:17; Start 07/06/16 at 14:30; Stop 07/07/16 at 14:29; Status DC Piperacillin Sod/ Tazobactam Sod 2.25 gm/Sodium Chloride 50 ml @ 100 mls/hr Q8HRS IV Last administered on 07/08/16 05:17; Start 07/06/16 at 15:00; Stop at 09:55; Status DC Levofloxacin/ Dextrose (LEVAQUIN 500mg PREMIX) 100 ml @ 100 mls/hr Q48H IV Last administered on 07/06/16 17:36; Start 07/06/16 at 15:00; Stop 07/08/16 at 09:55; Status DC Darbepoetin Naif 60 mcg 60 mcg WEEKLYHS SQ Last administered on 07/06/16 19:31 ; Start 07/06/16 at 21:00 Sodium Chloride (Iv Sodium Chloride 0.9% 1000ml Bag) 1,000 ml @ 1,000 mls/hr Q1H PRN IV hypotension; Start 07/06/16 at 23:29; Stop 07/07/16 at 05:28; Status DC Sodium Chloride (Normal Saline Flush) 10 ml 1X PRN PRN IV AP catheter pack; Start 07/06/16 at 23:30; Stop 07/07/16 at 23:29; Status DC Sodium Chloride (Normal Saline Flush) 10 ml 1X PRN PRN IV CAR PILOT catheter pack; Start 07/06/16 at 23:30; Stop 07/07/16 at 23:29; Status DC Info (PHARMACY MONITORING -- do not chart) 1 each PRN DAILY PRN MC SEE COMMENTS ; Start 07/06/16 at 23:30; Stop 07/09/16 at 21:17; Status DC Info 1 each 1 each PRN DAILY PRN MC SEE COMMENTS; Start 07/06/16 at 23:30; Stop 07/07/16 at 13:09; Status DC Vancomycin HCl/ Sodium Chloride (Iv Sodium Chloride 0.9% 250ml) 250 ml @ 250 mls/hr 1X ONCE IV Last administered on 07/07/16 06:36; Start 07/07/16 at 06: 30; Stop 07/07/16 at 07:29; Status DC Nystatin (Nystop) 1 stephan BID TP Last administered on 07/10/16 09:01; Start 02/12 at 14:00 Oxycodone HCl (Roxicodone) 5 mg PRN Q4HRS PRN PO PAIN; Start 07/07/16 at 18:00 ; Stop 07/07/16 at 18:38; Status DC Acetaminophen (Tylenol) 650 mg PRN Q6HRS PRN PO MILD PAIN / TEMP Last administered on 07/08/16 04:45; Start 07/07/16 at 18:45 Tramadol HCl (Ultram) 50 mg PRN Q6HRS PRN PO MODERATE PAIN Last administered on 07/08/16 04:45; Start 07/07/16 at 18:45 Acetaminophen/ Hydrocodone Bitart (Lortab 5/325) 1 tab PRN Q4HRS PRN PO SEVERE PAIN Last administered on 07/09/16 20:23; Start 07/08/16 at 09:30 Vancomycin HCl 1 each 1X ONCE MC Last administered on 07/09/16 05:31; Start 07/09/16 at 05:00; Stop 07/09/16 at 05:01; Status DC Amiodarone HCl (Cordarone) 200 mg BID PO Last administered on 07/10/16 09:02; Start 07/08/16 at 21:00 Aripiprazole (Abilify) 2.5 mg DAILY PO ; Start 07/09/16 at 09:00 Aspirin (Ecotrin) 81 mg DAILY PO ; Start 07/08/16 at 15:00 Atorvastatin Calcium (Lipitor) 20 mg HS PO Last administered on 07/09/16 20:25 ; Start 07/08/16 at 21:00 Buspirone HCl (Buspar) 5 mg TID PO Last administered on 07/08/16 20:20; Start 07/08/16 at 15:00 Clonidine HCl (Catapres) 0.2 mg DAILY PO Last administered on 07/10/16 09:02; Start 07/09/16 at 09:00 Docusate Sodium (Colace) 100 mg BID PO ; Start 07/08/16 at 21:00 Ferrous Sulfate (Feosol) 325 mg DAILY PO ; Start 07/09/16 at 09:00 Heparin Sodium (Porcine) 5,000 unit TID SQ ; Start 07/08/16 at 15:00 Albuterol/ Ipratropium (Duoneb) 3 ml PRN QID PRN NEB SHORTNESS OF BREATH; Start 07/08/16 at 14:45 Labetalol HCl (Normodyne) 10 mg PRN BID PRN IVP HYPERTENSION, SEE COMMENTS; Start 07/08/16 at 15:15 Nystatin (Nystop) 1 stephan BID TP ; Start 07/08/16 at 21:00; Status Cancel Mirtazapine (Remeron) 7.5 mg DAILY PO ; Start 07/09/16 at 09:00 Polyethylene Glycol (miraLAX PACKET) 17 gm DAILY PO ; Start 07/09/16 at 09:00 Sennosides (Senna) 8.6 mg DAILY PO ; Start 07/09/16 at 09:00 Non-Formulary Medication 100 mcg WEEKLY SQ TO TREAT ANEMIA; Start 07/15/16 at 09 :00; Status UNV Diltiazem HCl (Cardizem 24hr Cd) 360 mg DAILY PO Last administered on 09:03; Start 07/09/16 at 09:00 Escitalopram Oxalate (Lexapro) 20 mg DAILY PO ; Start 07/09/16 at 09:00 Vitamin B Complex/ Vitamin C (Zoe-Kiran) 1 tab DAILY PO ; Start 07/09/16 at 09: 00 Gabapentin (Neurontin) 600 mg BID PO Last administered on 07/09/16 20:25; Start 07/08/16 at 21:00 Non-Formulary Medication 9 mg DAILY PO ; Start 07/09/16 at 09:00; Status UNV Insulin Aspart (Novolog) 10 units TIDAC SQ Last administered on 07/10/16 09:12 ; Start 07/08/16 at 16:30 Heparin Sodium (Porcine) (Heparin Sodium) 10,000 unit STK-MED ONCE .ROUTE ; Start 07/09/16 at 11:22; Stop 07/09/16 at 11:23; Status DC Lidocaine/Sodium Bicarbonate 20 ml 20 ml STK-MED ONCE IJ ; Start 07/09/16 at 11: 22; Stop 07/09/16 at 11:23; Status DC Heparin Sodium/ Sodium Chloride 500 ml @ As Directed STK-MED ONCE .ROUTE ; Start 07/09/16 at 11:22; Stop 07/09/16 at 11:23; Status DC Heparin Sodium/ Sodium Chloride 60 unit 1X ONCE IV Last administered on 12:21; Start 07/09/16 at 11:45; Stop 07/09/16 at 11:51; Status DC Heparin Sodium (Porcine) (Heparin Sodium) 2,500 unit 1X ONCE INT CAT Last administered on 07/09/16 12:21; Start 07/09/16 at 11:45; Stop 07/09/16 at 11:51 ; Status DC Lidocaine/Sodium Bicarbonate (Buffered Lidocaine 1%) 3 ml 1X ONCE IJ Last administered on 07/09/16 12:20; Start 07/09/16 at 11:45; Stop 07/09/16 at 11:51 ; Status DC Methylprednisolone Acetate (Depo-Medrol 40mg Vial) 40 mg 1X ONCE IM ; Start at 14:45; Stop 07/09/16 at 14:59; Status DC Bupivacaine HCl 10 ml 10 ml 1X ONCE IJ ; Start 07/09/16 at 14:45; Stop at 14:59; Status DC Sodium Chloride 1,000 ml @ 1,000 mls/hr Q1H PRN IV hypotension; Start 07/09/16 at 15:15; Stop 07/09/16 at 21:14; Status DC Albumin Human (Albuminar) 200 ml @ 200 mls/hr 1X PRN PRN IV Hypotension; Start 07/09/16 at 15:15; Stop 07/09/16 at 21:14; Status DC Acetaminophen (Tylenol) 500 mg 1X PRN PRN PO MILD PAIN / TEMP; Start 07/09/16 at 15:15; Stop 07/10/16 at 15:14 Diphenhydramine HCl (Benadryl) 25 mg 1X PRN PRN IV ITCHING; Start 07/09/16 at 15:15; Stop 07/10/16 at 15:14 Diphenhydramine HCl (Benadryl) 25 mg 1X PRN PRN IV ITCHING; Start 07/09/16 at 15:15; Stop 07/10/16 at 15:14 Labetalol HCl (Normodyne) 10 mg PRN Q1HR PRN IVP SBP > 180; Start 07/09/16 at 15:15; Stop 07/10/16 at 15:14 Clonidine HCl (Catapres) 0.1 mg 1X PRN PRN PO SBP > 180; Start 07/09/16 at 15: 15; Stop 07/10/16 at 15:14 Info (PHARMACY MONITORING -- do not chart) 1 each PRN DAILY PRN MC SEE COMMENTS ; Start 07/09/16 at 15:15 Vancomycin HCl 1 each 1X ONCE MC ; Start 07/11/16 at 06:00; Stop 07/11/16 at 06 :01 Active Scripts Active Reported Amiodarone Hcl 200 Mg Tablet 200 Mg PO BID Aspir 81 (Aspirin) 81 Mg Tablet.dr 81 Mg PO DAILY Atorvastatin Calcium 20 Mg Tablet 20 Mg PO HS Cardizem Cd (Diltiazem Hcl) 360 Mg Cap.er.24h 360 Mg PO DAILY Docusate Sodium 100 Mg Capsule 100 Mg PO BID Melatonin 3 Mg Tablet 9 Mg PO DAILY Polyethylene Glycol 3350 17 Gm Powd.pack 17 Gm PO DAILY Senna (Sennosides) 8.6 Mg Tablet 8.6 Mg PO DAILY Clonidine Hcl 0.2 Mg Tablet 0.2 Mg PO DAILY Micro-Guard (Miconazole Nitrate) 85 Gm Powder 85 Gm TP BID Humalog (Insulin Lispro) 100 Unit/1 Ml Vial 100 Unit SQ Buspirone Hcl 5 Mg Tablet 5 Mg PO TID Aranesp Vial (Darbepoetin Naif In Polysorbat) 100 Mcg/1 Ml Vial 100 Mcg SQ WEEKLY Nephron Fa Tablet (Fe Fumarate/Dinorah/Fa/Bcomp&C) 1 Each Tablet 1 Each PO DAILY Ferrous Sulfate 325 Mg Tablet 1 Tab PO DAILY Escitalopram Oxalate 20 Mg Tablet 20 Mg PO DAILY Duoneb 0.5-3(2.5) Mg/3 Ml (Albuterol/Ipratropium) 3 Ml Ampul.neb 3 Ml NEB QID PRN Gabapentin 600 Mg Tablet 600 Mg PO BID Mirtazapine 7.5 Mg Tablet 7.5 Mg PO DAILY Abilify (Aripiprazole) 2 Mg Tablet 2.5 Mg PO DAILY Labetalol Hcl 5 Mg/1 Ml Vial 10 Mg IV PRN Heparin Sod 5,000 Unit/ 0.5 Ml (Heparin Sodium,Porcine/Pf) 5,000 Unit/0.5 Ml Vial 5,000 Unit IJ TID Novolin N (Nph, Human Insulin Isophane) 100 Unit/1 Ml Vial 100 Unit SQ PRN Vitals/I & O Vital Sign - Last 24 Hours 07/09/16 07/09/16 07/09/16 07/09/16 11:00 13:00 13:15 13:30 Temp 97.6 98.1 98.1 98.1 97.6 98.1 98.1 98.1 Pulse 67 68 68 74 Resp B/P 110/56 107/44 103/52 111/47 Pulse Ox 96 97 96 97 O2 Delivery Nasal Cannula Nasal Cannula Nasal Cannula Nasal Cannula O2 Flow Rate 3.0 3.0 3.0 3.0 07/09/16 07/09/16 07/09/16 07/09/16 13:45 14:15 19:00 20:00 Temp 97.7 97.7 97.7 97.7 97.7 97.7 Pulse 69 70 77 Resp B/P 120/57 106/42 114/46 Pulse Ox 92 97 98 O2 Delivery Nasal Cannula Nasal Cannula Nasal Cannula Nasal Cannula O2 Flow Rate 3.0 3.0 3.0 3.0 07/09/16 07/09/16 07/09/16 07/10/16 20:23 22:55 23:45 03:00 Temp 99.1 98.5 99.1 98.5 Pulse 85 87 103 Resp B/P 106/47 156/60 109/46 Pulse Ox 91 91 O2 Delivery Nasal Cannula Nasal Cannula Nasal Cannula O2 Flow Rate 3.0 3.0 3.0 07/10/16 07/10/16 07/10/16 07/10/16 07:00 09:02 09:02 09:03 Temp 97.6 97.6 Pulse 80 80 80 80 Resp 19 B/P 156/71 156/71 156/71 156/71 Pulse Ox 85 O2 Delivery Room Air Intake and Output 07/09/16 07/09/16 07/10/16 15:00 23:00 07:00 Intake Total 1200 ml 400 ml Output Total 0 ml Balance 1200 ml 400 ml Nutrition Consultation Dietary Evaluation: Recommendations by RD: Increase Calorie Intake, Protein supplementation Comments: Changed [facility] to [facility] renal TID - 475kcal and 21.6g protein Expected Outcomes/Goals: diet advancement: met new goal: to meet >75% est nutr needs Malnutrition Findings: Food and Nutrition Intake (Mod: <75% est energy req 7days Weight Status: Morbidly Obese Fluid Accumulation (Non-Severe: Mild depletion SHAZIA COLEMAN MD Jul 10, 2016 09:17
--- NOTE | 2016-07-10 09:45 | CONS ---
DATE OF CONSULTATION: 07/09/2016 ATTENDING PHYSICIAN: Dr. Rosales. The patient was seen at the request of Dr. Rosales for rehab evaluation about her left upper extremity pain. HISTORY OF PRESENT ILLNESS: This is a 60-year-old female with end-stage renal disease on hemodialysis; previous sepsis, diabetes mellitus, hyperlipidemia, hypertension, right chest dialysis catheter placement. Family history of coronary artery disease and morbid obesity. She has been in and out of the several hospitals including [facility] rehab twice, nursing home care unit at [facility] in the last 11 months. The patient was admitted on 07/06/2016 with weakness, fever, mental status changes and diarrhea. The patient apparently had diarrhea for about 5 days prior to the hospitalization and lost her appetite, has gotten dehydrated, some vomiting and nausea, missed her dialysis for about 2 days. While in the Emergency Room, she was noted to be septic. The patient is feeling better. The patient complains of left upper extremity pain. She denies any specific injury. She is also being treated for right heel blister. 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 She lives with her in a [place], [place] home, ____. The patient can walk using a roller walker, but she needs help with transfers. The patient denies any lower back pain. PHYSICAL EXAMINATION: Today revealed a middle-aged female. She is alert, oriented to time, place, person and circumstance and follows commands appropriately, moves all 4 extremities voluntarily. She is protecting her left upper extremity to a significant degree, pain on range of motion of left elbow. The patient had localized tenderness to palpation at left lateral humeral epicondylar area. No tenderness to palpation at the left shoulder. She had crepitus on range of motion of her shoulders. The patient had a crepitus on range of motion of her knee joints. She had overall 4+/5 grade muscle strength ____ increased weakness in the left upper extremity. The patient had muscle atrophy involving hand and foot intrinsic muscles. Deep tendon reflexes are absent at both ankles. The patient requires some help with bed mobility. I have not tested her transfers or ambulation skills at this time. ASSESSMENT: A middle-aged female with diabetes mellitus with peripheral neuropathy, end-stage renal disease on hemodialysis, admitted with sepsis and encephalopathy on 07/03/2016. The patient is also with known hyperlipidemia, hypertension, obstructive sleep apnea, morbid obesity, gouty arthritis, left lateral humeral epicondylitis and right heel blister from pressure. RECOMMENDATION: To proceed with injecting left lateral humeral epicondylar area with Marcaine and Depo-Medrol solution to help ease her pain, to get her Rapo boot to keep the heel pressure on the right side to encourage her to get up and participate in therapy. Hopefully, home with home health follow up when she can transfer better with the help of her . Dr. Rosales, I appreciate asking me to participate in the care of this interesting patient. I will be glad to follow her with you as needed for her rehabilitation. SHAZIA COLEMAN MD DR: YARA/charly JOB#: [id number] / [id number]
--- NOTE | 2016-07-10 10:35 | PDOC ---
Infectious Disease Note Subjective Subjective pt is feeling ok, no complaints ROS ROS GEN: Denies fevers, chills, sweats HEENT: Denies blurred vision, sore throat CV: Denies chest pain RESP: Denies shortness of air, cough GI: Denies n/v/d NEURO: Denies confusion, dizziness MSK: Denies weakness, joint pain/swelling Vital Sign Vital Signs Vital Signs Date Time Temp Pulse Resp B/P Pulse Ox O2 Delivery O2 Flow Rate FiO2 07/10/16 09:03 80 156/71 07/10/16 07:00 97.6 19 85 Room Air 97.6 07/10/16 03:00 3.0 Physical Exam PHYSICAL EXAM GENERAL: NAD, Alert HEENT: PERRL, OC/OP NECK: Supple, no JVD, no LN LUNGS: Clear HEART: S1S2, no gallop, no murmur ABD: Soft, NT, no organomegaly, no rebound EXT: No edema, no cyanosis STRATEGY LEAD: Alert, oriented x 3, no focal neurologic deficit SKIN: No rash IV: ok Labs Lab Laboratory Tests Test 07/09/16 11:24 07/09/16 20:42 07/10/16 04:25 07/10/16 08:00 Glucose (Fingerstick) 171mg/dL (70-99) 208mg/dL (70-99) 284mg/dL (70-99) White Blood Count 11.2x10^3/uL (4.0-11.0) Red Blood Count 3.98x10^6/uL (3.50-5.40) Hemoglobin 10.3g/dL (12.0-15.5) Hematocrit 33.1% (36.0-47.0) Mean Corpuscular Volume 83fL (79-100) Mean Corpuscular Hemoglobin 26pg (25-35) Mean Corpuscular Hemoglobin Concent 31g/dL (31-37) Red Cell Distribution Width 17.3% (11.5-14.5) Platelet Count 180x10^3/uL (140-400) Sodium Level 133mmol/L (136-145) Potassium Level 4.6mmol/L (3.5-5.1) Chloride Level 96mmol/L (98-107) Carbon Dioxide Level 25mmol/L (21-32) Anion Gap 12 (6-14) Blood Urea Nitrogen 55mg/dL (7-20) Creatinine 5.1mg/dL (0.6-1.0) Estimated GFR (Cockcroft-Gault) 8.7 Glucose Level 283mg/dL (70-99) Calcium Level 7.4mg/dL (8.5-10.1) Micro BLOOD CULTURE PRL Preliminary Preliminary report BLD CULT RESULT 1 Preliminary Staphylococcus aureus Recovered from aerobic and anaerobic bottles. Performed at: [address] [id number] [employer] Machinist: Belle Wallis MD, Phone: [phone] Objective Assessment Sepsis Encephalopathy BC positive MRSA ESRD Obesity Plan Plan of Care vanc supportive care d/w dr Alisha GALLARDO cath out LYA RALPH MD Jul 10, 2016 10:34
[2016-07-10] MEDS ORDERED: 0.9 % SODIUM CHLORIDE 10 ML DISP.SYRIN. IV PRN ×2 (10:45)
[2016-07-10] MEDS ORDERED: IV NORMAL SALINE 1000ML BAG 1,000 ML IV PRN (10:45)
[2016-07-10] MEDS ORDERED: DIALYSIS PATIENT. MC PRN ×2 (10:45)
--- NOTE | 2016-07-10 11:30 | PDOC ---
Renal-Progress Notes Subjective Notes Notes SOME CONFUSION History of Present Illness Hx of present illness BETTER Vitals Vitals Vital Signs Date Time Temp Pulse Resp B/P Pulse Ox O2 Delivery O2 Flow Rate FiO2 07/10/16 09:03 80 156/71 07/10/16 07:30 Nasal Cannula 3.0 07/10/16 07:00 97.6 19 85 97.6 Weight Weight [ ] I.O. Intake and Output Intake and Output 07/10/16 07:00 Intake Total 1600 ml Output Total 0 ml Balance 1600 ml Intake Oral 1600 ml Output Urine Total 0 ml # Voids 4 # Bowel Movements 1 Labs Labs Laboratory Tests Test 07/09/16 20:42 07/10/16 04:25 07/10/16 08:00 Glucose (Fingerstick) 208mg/dL (70-99) 284mg/dL (70-99) White Blood Count 11.2x10^3/uL (4.0-11.0) Red Blood Count 3.98x10^6/uL (3.50-5.40) Hemoglobin 10.3g/dL (12.0-15.5) Hematocrit 33.1% (36.0-47.0) Mean Corpuscular Volume 83fL (79-100) Mean Corpuscular Hemoglobin 26pg (25-35) Mean Corpuscular Hemoglobin Concent 31g/dL (31-37) Red Cell Distribution Width 17.3% (11.5-14.5) Platelet Count 180x10^3/uL (140-400) Sodium Level 133mmol/L (136-145) Potassium Level 4.6mmol/L (3.5-5.1) Chloride Level 96mmol/L (98-107) Carbon Dioxide Level 25mmol/L (21-32) Anion Gap 12 (6-14) Blood Urea Nitrogen 55mg/dL (7-20) Creatinine 5.1mg/dL (0.6-1.0) Estimated GFR (Cockcroft-Gault) 8.7 Glucose Level 283mg/dL (70-99) Calcium Level 7.4mg/dL (8.5-10.1) Micro Micro Microbiology 07/08/16 Blood Culture - Preliminary, Resulted 07/08/16 Blood Culture Result 1 (NEGRITO) - Preliminary, Resulted 07/08/16 Fecal Leukocyte Stain - Final, Complete 07/06/16 Urine Culture - Final, Complete 07/06/16 Urine Culture Result 1 (NEGRITO) - Final, Complete 07/06/16 Gram Stain - Final, Complete Review of Systems Constitutional: yes: alert, weakness Ears/Nose/Throat: Yes: no symptom reported Eyes: Yes: no symptom reported Pulmonary: Yes dyspnea Cardiovascular: Yes no symptom reported Musculoskeletal: Yes: muscle stiffness Skin: Yes no symptom reported Physical Exam General Appearance: no apparent distress Skin: warm Respiratory: decreased breath sounds Heart: S1S2, RRR Neurology: alert, oriented Assessment Assessment IMP ESRD LINE INFECTION ANEMIA HYPERVOLEMIA PLAN ANTIBIOTICS HD TODAY UF TO DW CONT HD WITH TEMP CATHETER WILL THEN HAVE TUNNELED HD CATHETER NEXT WK ONCE CULTURES ARE CLEAR D/W ID MELITON SÁNCHEZ MD Jul 10, 2016 11:30
[2016-07-10] MEDS: VANCOMYCIN PER PHARMACY MC PRN (12:30)
--- NOTE | 2016-07-10 13:30 | PDOC ---
Provider Note Provider Note 07/10/2016 1240 BC positive MRSA. ID requested for TO to rule out lesions/endocarditis. Pt currently having HD. Pt is AOx3. Discussed TO which is scheduled for Wednesday next week around noon. Risks and benefits explained and agreeable to proceed. MILLY ORTEZ APRN Jul 10, 2016 13:30
[2016-07-10] MEDS: MIRTAZAPINE 7.5 MG TABLET. PO SCH (14:44)
[2016-07-10] MEDS: ARIPiprazole 2 MG TABLET PO SCH (14:44)
[2016-07-10] MEDS: GABAPENTIN 300 MG CAPSULE. PO SCH ×2 (14:45→21:02)
[2016-07-10] MEDS: SENNOSIDES 8.6 MG TABLET PO SCH (14:45)
[2016-07-10] MEDS: ESCITALOPRAM 10 MG TABLET. PO SCH (14:45)
[2016-07-10] MEDS: FOLIC/VIT B COMP W-C (RENAL) TABLET. PO SCH (14:45)
[2016-07-10] MEDS: ASPIRIN ENTERIC COATED 81 MG TABLET.DR. PO SCH (14:46)
[2016-07-10] MEDS: DOCUSATE SODIUM 100 MG CAPSULE. PO SCH ×2 (14:46→21:01)
[2016-07-10] MEDS: FERROUS SULFATE 325 MG TABLET. PO SCH (14:46)
--- NOTE | 2016-07-10 15:19 | PDOC ---
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 Rogers is doing well and is ready to seek LTAC disposition. She seems much more aware of her surroundings and conversed with us without any problem. The dialysis port was present in her left neck. We spoke with social studies teacher about her case. We discussed with her family the current treatment plan. Vitals Vitals Vital Signs Date Time Temp Pulse Resp B/P Pulse Ox O2 Delivery O2 Flow Rate FiO2 07/10/16 09:03 80 156/71 07/10/16 07:30 Nasal Cannula 3.0 07/10/16 07:00 97.6 19 85 97.6 Physical Exam General: Alert, Cooperative Heart: Regular rate, Normal S1, Normal S2 Lungs: Clear, Other (No chest retractions were present) Abdomen: Soft, No tenderness Extremities: No clubbing, No cyanosis Skin: No rashes, No breakdown Labs LABS Laboratory Tests Test 07/09/16 20:42 07/10/16 04:25 07/10/16 08:00 Glucose (Fingerstick) 208mg/dL (70-99) 284mg/dL (70-99) White Blood Count 11.2x10^3/uL (4.0-11.0) Red Blood Count 3.98x10^6/uL (3.50-5.40) Hemoglobin 10.3g/dL (12.0-15.5) Hematocrit 33.1% (36.0-47.0) Mean Corpuscular Volume 83fL (79-100) Mean Corpuscular Hemoglobin 26pg (25-35) Mean Corpuscular Hemoglobin Concent 31g/dL (31-37) Red Cell Distribution Width 17.3% (11.5-14.5) Platelet Count 180x10^3/uL (140-400) Sodium Level 133mmol/L (136-145) Potassium Level 4.6mmol/L (3.5-5.1) Chloride Level 96mmol/L (98-107) Carbon Dioxide Level 25mmol/L (21-32) Anion Gap 12 (6-14) Blood Urea Nitrogen 55mg/dL (7-20) Creatinine 5.1mg/dL (0.6-1.0) Estimated GFR (Cockcroft-Gault) 8.7 Glucose Level 283mg/dL (70-99) Calcium Level 7.4mg/dL (8.5-10.1) Review of Systems Review of Systems Ms. Rogers has not had any nausea or vomiting episodes. She has not experienced any shortness of air or dizziness. Assessment and Plan Assessmemt and Plan Problems Medical Problems: (1) Anemia Status: Acute (2) End stage renal disease Status: Acute (3) Generalized weakness Status: Acute (4) Healthcare-associated pneumonia Status: Acute (5) Sepsis Status: Acute (6) Transient hypotension Status: Acute (7) Urinary tract infection Status: Acute Assessment: Ms. Rogers is a 60 year old female who initially presented with a 5 day history of diarrhea. 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 Monitor for disposition to LTAC 2. Continue home medications 3. Continue pain management with Lortab, tramadol, acetaminophen 4. Continue antibiotic treatment with vancomycin 5. Continue topical for antifungal treatment 6. Continue to monitor Cr and BUN 7. Appreciate consultation from nephrology, ID, GI, pulmonology, and IR Problems: Comment Review of Relevant I have reviewed the following items dominga (where applicable) has been applied. Labs Laboratory Tests Test 07/08/16 17:01 07/08/16 20:09 07/08/16 20:20 07/09/16 04:10 Glucose (Fingerstick) 244mg/dL (70-99) 277mg/dL (70-99) Clostridium difficile Toxin (PCR) Negative (Negative) Sodium Level 133mmol/L (136-145) Potassium Level 4.1mmol/L (3.5-5.1) Chloride Level 96mmol/L (98-107) Carbon Dioxide Level 23mmol/L (21-32) Anion Gap 14 (6-14) Blood Urea Nitrogen 90mg/dL (7-20) Creatinine 7.7mg/dL (0.6-1.0) Estimated GFR (Cockcroft-Gault) 5.4 Glucose Level 225mg/dL (70-99) Calcium Level 7.7mg/dL (8.5-10.1) Random Vancomycin Level 26.1mcg/mL Test 07/09/16 08:01 07/09/16 11:24 07/09/16 20:42 07/10/16 04:25 Glucose (Fingerstick) 175mg/dL (70-99) 171mg/dL (70-99) 208mg/dL (70-99) White Blood Count 11.2x10^3/uL (4.0-11.0) Red Blood Count 3.98x10^6/uL (3.50-5.40) Hemoglobin 10.3g/dL (12.0-15.5) Hematocrit 33.1% (36.0-47.0) Mean Corpuscular Volume 83fL (79-100) Mean Corpuscular Hemoglobin 26pg (25-35) Mean Corpuscular Hemoglobin Concent 31g/dL (31-37) Red Cell Distribution Width 17.3% (11.5-14.5) Platelet Count 180x10^3/uL (140-400) Sodium Level 133mmol/L (136-145) Potassium Level 4.6mmol/L (3.5-5.1) Chloride Level 96mmol/L (98-107) Carbon Dioxide Level 25mmol/L (21-32) Anion Gap 12 (6-14) Blood Urea Nitrogen 55mg/dL (7-20) Creatinine 5.1mg/dL (0.6-1.0) Estimated GFR (Cockcroft-Gault) 8.7 Glucose Level 283mg/dL (70-99) Calcium Level 7.4mg/dL (8.5-10.1) Test 07/10/16 08:00 Glucose (Fingerstick) 284mg/dL (70-99) Laboratory Tests Test 07/09/16 20:42 07/10/16 04:25 07/10/16 08:00 Glucose (Fingerstick) 208mg/dL (70-99) 284mg/dL (70-99) White Blood Count 11.2x10^3/uL (4.0-11.0) Red Blood Count 3.98x10^6/uL (3.50-5.40) Hemoglobin 10.3g/dL (12.0-15.5) Hematocrit 33.1% (36.0-47.0) Mean Corpuscular Volume 83fL (79-100) Mean Corpuscular Hemoglobin 26pg (25-35) Mean Corpuscular Hemoglobin Concent 31g/dL (31-37) Red Cell Distribution Width 17.3% (11.5-14.5) Platelet Count 180x10^3/uL (140-400) Sodium Level 133mmol/L (136-145) Potassium Level 4.6mmol/L (3.5-5.1) Chloride Level 96mmol/L (98-107) Carbon Dioxide Level 25mmol/L (21-32) Anion Gap 12 (6-14) Blood Urea Nitrogen 55mg/dL (7-20) Creatinine 5.1mg/dL (0.6-1.0) Estimated GFR (Cockcroft-Gault) 8.7 Glucose Level 283mg/dL (70-99) Calcium Level 7.4mg/dL (8.5-10.1) Microbiology 07/08/16 Blood Culture - Preliminary, Resulted 07/08/16 Blood Culture Result 1 (NEGRITO) - Preliminary, Resulted 07/08/16 Fecal Leukocyte Stain - Final, Complete 07/06/16 Urine Culture - Final, Complete 07/06/16 Urine Culture Result 1 (NEGRITO) - Final, Complete 07/06/16 Gram Stain - Final, Complete Medications Current Medications Sodium Chloride (Iv Sodium Chloride 0.9% 500ml Bag) 500 ml @ 1,000 mls/hr 1X ONCE IV Last administered on 07/06/16 13:33; Start 07/06/16 at 12:45; Stop 01/12 at 13:14; Status DC Ondansetron HCl (Zofran) 4 mg 1X ONCE IV Last administered on 07/06/16 13:33 ; Start 07/06/16 at 12:45; Stop 07/06/16 at 12:46; Status DC Vancomycin HCl (Vanco Per Pharmacy) 1 each PRN DAILY PRN MC SEE COMMENTS Last administered on 07/10/16 12:30; Start 07/06/16 at 14:00 Piperacillin Sod/ Tazobactam Sod (Zosyn Per Pharmacy) 1 each PRN DAILY PRN MC SEE COMMENTS; Start 07/06/16 at 14:00; Stop 07/08/16 at 09:55; Status DC Levofloxacin/ Dextrose 1 each 1 each PRN DAILY PRN MC SEE COMMENTS; Start 07/06 at 14:00; Stop 07/08/16 at 09:55; Status DC Vancomycin HCl/ Sodium Chloride (Iv Sodium Chloride 0.9% 500ml Bag) 500 ml @ 250 mls/hr 1X ONCE IV Last administered on 07/06/16 15:03; Start 07/06/16 at 14:15; Stop 07/06/16 at 16:14; Status DC Ondansetron HCl (Zofran) 4 mg PRN Q8HRS PRN IV NAUSEA/VOMITING; Start 07/06/16 at 14:30; Stop 07/07/16 at 14:29; Status DC Morphine Sulfate 2 mg PRN Q2HR PRN IV PAIN; Start 07/06/16 at 14:30; Stop 07/07 at 14:29; Status DC Acetaminophen 650 mg 650 mg PRN Q4HRS PRN PO FEVER Last administered on 05:17; Start 07/06/16 at 14:30; Stop 07/07/16 at 14:29; Status DC Piperacillin Sod/ Tazobactam Sod 2.25 gm/Sodium Chloride 50 ml @ 100 mls/hr Q8HRS IV Last administered on 07/08/16 05:17; Start 07/06/16 at 15:00; Stop at 09:55; Status DC Levofloxacin/ Dextrose (LEVAQUIN 500mg PREMIX) 100 ml @ 100 mls/hr Q48H IV Last administered on 07/06/16 17:36; Start 07/06/16 at 15:00; Stop 07/08/16 at 09:55; Status DC Darbepoetin Naif 60 mcg 60 mcg WEEKLYHS SQ Last administered on 07/06/16 19:31 ; Start 07/06/16 at 21:00 Sodium Chloride (Iv Sodium Chloride 0.9% 1000ml Bag) 1,000 ml @ 1,000 mls/hr Q1H PRN IV hypotension; Start 07/06/16 at 23:29; Stop 07/07/16 at 05:28; Status DC Sodium Chloride (Normal Saline Flush) 10 ml 1X PRN PRN IV AP catheter pack; Start 07/06/16 at 23:30; Stop 07/07/16 at 23:29; Status DC Sodium Chloride (Normal Saline Flush) 10 ml 1X PRN PRN IV SENIOR INFORMATION SECURITY CONSULTANT catheter pack; Start 07/06/16 at 23:30; Stop 07/07/16 at 23:29; Status DC Info (PHARMACY MONITORING -- do not chart) 1 each PRN DAILY PRN MC SEE COMMENTS ; Start 07/06/16 at 23:30; Stop 07/09/16 at 21:17; Status DC Info 1 each 1 each PRN DAILY PRN MC SEE COMMENTS; Start 07/06/16 at 23:30; Stop 07/07/16 at 13:09; Status DC Vancomycin HCl/ Sodium Chloride (Iv Sodium Chloride 0.9% 250ml) 250 ml @ 250 mls/hr 1X ONCE IV Last administered on 07/07/16 06:36; Start 07/07/16 at 06: 30; Stop 07/07/16 at 07:29; Status DC Nystatin (Nystop) 1 stephan BID TP Last administered on 07/10/16 09:01; Start 02/12 at 14:00 Oxycodone HCl (Roxicodone) 5 mg PRN Q4HRS PRN PO PAIN; Start 07/07/16 at 18:00 ; Stop 07/07/16 at 18:38; Status DC Acetaminophen (Tylenol) 650 mg PRN Q6HRS PRN PO MILD PAIN / TEMP Last administered on 07/08/16 04:45; Start 07/07/16 at 18:45 Tramadol HCl (Ultram) 50 mg PRN Q6HRS PRN PO MODERATE PAIN Last administered on 07/08/16 04:45; Start 07/07/16 at 18:45 Acetaminophen/ Hydrocodone Bitart (Lortab 5/325) 1 tab PRN Q4HRS PRN PO SEVERE PAIN Last administered on 07/09/16 20:23; Start 07/08/16 at 09:30 Vancomycin HCl 1 each 1X ONCE MC Last administered on 07/09/16 05:31; Start 07/09/16 at 05:00; Stop 07/09/16 at 05:01; Status DC Amiodarone HCl (Cordarone) 200 mg BID PO Last administered on 07/10/16 09:02; Start 07/08/16 at 21:00 Aripiprazole (Abilify) 2.5 mg DAILY PO Last administered on 07/10/16 14:44; Start 07/09/16 at 09:00 Aspirin (Ecotrin) 81 mg DAILY PO Last administered on 07/10/16 14:46; Start at 15:00 Atorvastatin Calcium (Lipitor) 20 mg HS PO Last administered on 07/09/16 20:25 ; Start 07/08/16 at 21:00 Buspirone HCl (Buspar) 5 mg TID PO Last administered on 07/10/16 14:46; Start 07/08/16 at 15:00 Clonidine HCl (Catapres) 0.2 mg DAILY PO Last administered on 07/10/16 09:02; Start 07/09/16 at 09:00 Docusate Sodium (Colace) 100 mg BID PO Last administered on 07/10/16 14:46; Start 07/08/16 at 21:00 Ferrous Sulfate (Feosol) 325 mg DAILY PO Last administered on 07/10/16 14:46; Start 07/09/16 at 09:00 Heparin Sodium (Porcine) 5,000 unit TID SQ Last administered on 07/10/16 14:58 ; Start 07/08/16 at 15:00 Albuterol/ Ipratropium (Duoneb) 3 ml PRN QID PRN NEB SHORTNESS OF BREATH; Start 07/08/16 at 14:45 Labetalol HCl (Normodyne) 10 mg PRN BID PRN IVP HYPERTENSION, SEE COMMENTS; Start 07/08/16 at 15:15 Nystatin (Nystop) 1 stephan BID TP ; Start 07/08/16 at 21:00; Status Cancel Mirtazapine (Remeron) 7.5 mg DAILY PO Last administered on 07/10/16 14:44; Start 07/09/16 at 09:00 Polyethylene Glycol (miraLAX PACKET) 17 gm DAILY PO ; Start 07/09/16 at 09:00 Sennosides (Senna) 8.6 mg DAILY PO Last administered on 07/10/16 14:45; Start 07/09/16 at 09:00 Non-Formulary Medication 100 mcg WEEKLY SQ TO TREAT ANEMIA; Start 07/15/16 at 09 :00; Status UNV Diltiazem HCl (Cardizem 24hr Cd) 360 mg DAILY PO Last administered on 09:03; Start 07/09/16 at 09:00 Escitalopram Oxalate (Lexapro) 20 mg DAILY PO Last administered on 07/10/16 14 :45; Start 07/09/16 at 09:00 Vitamin B Complex/ Vitamin C (Zoe-Kiran) 1 tab DAILY PO Last administered on 14:45; Start 07/09/16 at 09:00 Gabapentin (Neurontin) 600 mg BID PO Last administered on 07/10/16 14:45; Start 07/08/16 at 21:00 Non-Formulary Medication 9 mg DAILY PO ; Start 07/09/16 at 09:00; Status UNV Insulin Aspart (Novolog) 10 units TIDAC SQ Last administered on 07/10/16 09:12 ; Start 07/08/16 at 16:30 Heparin Sodium (Porcine) (Heparin Sodium) 10,000 unit STK-MED ONCE .ROUTE ; Start 07/09/16 at 11:22; Stop 07/09/16 at 11:23; Status DC Lidocaine/Sodium Bicarbonate 20 ml 20 ml STK-MED ONCE IJ ; Start 07/09/16 at 11: 22; Stop 07/09/16 at 11:23; Status DC Heparin Sodium/ Sodium Chloride 500 ml @ As Directed STK-MED ONCE .ROUTE ; Start 07/09/16 at 11:22; Stop 07/09/16 at 11:23; Status DC Heparin Sodium/ Sodium Chloride 60 unit 1X ONCE IV Last administered on 12:21; Start 07/09/16 at 11:45; Stop 07/09/16 at 11:51; Status DC Heparin Sodium (Porcine) (Heparin Sodium) 2,500 unit 1X ONCE INT CAT Last administered on 07/09/16 12:21; Start 07/09/16 at 11:45; Stop 07/09/16 at 11:51 ; Status DC Lidocaine/Sodium Bicarbonate (Buffered Lidocaine 1%) 3 ml 1X ONCE IJ Last administered on 4/13/17at 12:20; Start 07/09/16 at 11:45; Stop 07/09/16 at 11:51 ; Status DC Methylprednisolone Acetate (Depo-Medrol 40mg Vial) 40 mg 1X ONCE IM ; Start at 14:45; Stop 07/09/16 at 14:59; Status DC Bupivacaine HCl 10 ml 10 ml 1X ONCE IJ ; Start 07/09/16 at 14:45; Stop at 14:59; Status DC Sodium Chloride 1,000 ml @ 1,000 mls/hr Q1H PRN IV hypotension; Start 07/09/16 at 15:15; Stop 07/09/16 at 21:14; Status DC Albumin Human (Albuminar) 200 ml @ 200 mls/hr 1X PRN PRN IV Hypotension; Start 07/09/16 at 15:15; Stop 07/09/16 at 21:14; Status DC Acetaminophen (Tylenol) 500 mg 1X PRN PRN PO MILD PAIN / TEMP; Start 07/09/16 at 15:15; Stop 07/10/16 at 15:14 Diphenhydramine HCl (Benadryl) 25 mg 1X PRN PRN IV ITCHING; Start 07/09/16 at 15:15; Stop 07/10/16 at 15:14 Diphenhydramine HCl (Benadryl) 25 mg 1X PRN PRN IV ITCHING; Start 07/09/16 at 15:15; Stop 07/10/16 at 15:14 Labetalol HCl (Normodyne) 10 mg PRN Q1HR PRN IVP SBP > 180; Start 07/09/16 at 15:15; Stop 07/10/16 at 15:14 Clonidine HCl (Catapres) 0.1 mg 1X PRN PRN PO SBP > 180; Start 07/09/16 at 15: 15; Stop 07/10/16 at 15:14 Info (PHARMACY MONITORING -- do not chart) 1 each PRN DAILY PRN MC SEE COMMENTS ; Start 07/09/16 at 15:15; Status Cancel Vancomycin HCl 1 each 1 each 1X ONCE MC ; Start 07/11/16 at 06:00; Stop at 06:01 Sodium Chloride (Iv Sodium Chloride 0.9% 1000ml Bag) 1,000 ml @ 1,000 mls/hr Q1H PRN IV hypotension; Start 07/10/16 at 10:45; Stop 07/10/16 at 16:44 Sodium Chloride (Normal Saline Flush) 10 ml 1X PRN PRN IV AP catheter pack; Start 07/10/16 at 10:45; Stop 07/11/16 at 10:44 Sodium Chloride (Normal Saline Flush) 10 ml 1X PRN PRN IV SENIOR INFORMATION SECURITY CONSULTANT catheter pack; Start 07/10/16 at 10:45; Stop 07/11/16 at 10:44 Info (PHARMACY MONITORING -- do not chart) 1 each PRN DAILY PRN MC SEE COMMENTS ; Start 07/10/16 at 10:45; Stop 07/10/16 at 14:25; Status DC Info 1 each 1 each PRN DAILY PRN MC SEE COMMENTS; Start 07/10/16 at 10:45 Lactated Ringer's (Iv Lactated Ringers) 1,000 ml @ 50 mls/hr Q20H IV ; Start at 07:00; Stop 07/13/16 at 18:59 Active Scripts Active Reported Amiodarone Hcl 200 Mg Tablet 200 Mg PO BID Aspir 81 (Aspirin) 81 Mg Tablet.dr 81 Mg PO DAILY Atorvastatin Calcium 20 Mg Tablet 20 Mg PO HS Cardizem Cd (Diltiazem Hcl) 360 Mg Cap.er.24h 360 Mg PO DAILY Docusate Sodium 100 Mg Capsule 100 Mg PO BID Melatonin 3 Mg Tablet 9 Mg PO DAILY Polyethylene Glycol 3350 17 Gm Powd.pack 17 Gm PO DAILY Senna (Sennosides) 8.6 Mg Tablet 8.6 Mg PO DAILY Clonidine Hcl 0.2 Mg Tablet 0.2 Mg PO DAILY Micro-Guard (Miconazole Nitrate) 85 Gm Powder 85 Gm TP BID Humalog (Insulin Lispro) 100 Unit/1 Ml Vial 100 Unit SQ Buspirone Hcl 5 Mg Tablet 5 Mg PO TID Aranesp Vial (Darbepoetin Naif In Polysorbat) 100 Mcg/1 Ml Vial 100 Mcg SQ WEEKLY Nephron Fa Tablet (Fe Fumarate/Dinorah/Fa/Bcomp&C) 1 Each Tablet 1 Each PO DAILY Ferrous Sulfate 325 Mg Tablet 1 Tab PO DAILY Escitalopram Oxalate 20 Mg Tablet 20 Mg PO DAILY Duoneb 0.5-3(2.5) Mg/3 Ml (Albuterol/Ipratropium) 3 Ml Ampul.neb 3 Ml NEB QID PRN Gabapentin 600 Mg Tablet 600 Mg PO BID Mirtazapine 7.5 Mg Tablet 7.5 Mg PO DAILY Abilify (Aripiprazole) 2 Mg Tablet 2.5 Mg PO DAILY Labetalol Hcl 5 Mg/1 Ml Vial 10 Mg IV PRN Heparin Sod 5,000 Unit/ 0.5 Ml (Heparin Sodium,Porcine/Pf) 5,000 Unit/0.5 Ml Vial 5,000 Unit IJ TID Novolin N (Nph, Human Insulin Isophane) 100 Unit/1 Ml Vial 100 Unit SQ PRN Vitals/I & O Vital Sign - Last 24 Hours 07/09/16 07/09/16 07/09/16 07/09/16 19:00 20:00 20:23 22:55 Temp 97.7 99.1 97.7 99.1 Pulse 77 85 Resp 16 18 16 B/P 114/46 106/47 Pulse Ox 98 91 O2 Delivery Nasal Cannula Nasal Cannula Nasal Cannula Nasal Cannula O2 Flow Rate 3.0 3.0 3.0 3.0 07/09/16 07/10/16 07/10/16 07/10/16 23:45 03:00 07:00 07:30 Temp 98.5 97.6 98.5 97.6 Pulse 87 103 80 Resp 16 19 B/P 156/60 109/46 156/71 Pulse Ox 91 85 O2 Delivery Nasal Cannula Room Air Nasal Cannula O2 Flow Rate 3.0 3.0 07/10/16 07/10/16 07/10/16 09:02 09:02 09:03 Pulse 80 80 80 B/P 156/71 156/71 156/71 Intake and Output 07/09/16 07/09/16 07/10/16 15:00 23:00 07:00 Intake Total 1200 ml 400 ml Output Total 0 ml Balance 1200 ml 400 ml Nutrition Consultation Dietary Evaluation: Recommendations by RD: Increase Calorie Intake, Protein supplementation Comments: Changed boost [facility] to [facility] renal TID - 475kcal and 21.6g protein Expected Outcomes/Goals: diet advancement: met new goal: to meet >75% est nutr needs Malnutrition Findings: Food and Nutrition Intake (Mod: <75% est energy req 7days Weight Status: Morbidly Obese Fluid Accumulation (Non-Severe: Mild depletion CASTLE,NIAL K III DO Jul 10, 2016 15:19
[2016-07-10 15:50] VITALS: BP 145/56
--- NOTE | 2016-07-10 17:39 | PDOC ---
G I PROGRESS NOTE Subjective No GI complaints. Says diarrhea better. Elbow feeling better (has been tapped) . Physical Exam Lungs clear. RRR Abdomen soft, not tender nor distended. Review of Relevant I have reviewed the following items dominga (where applicable) has been applied. Labs Laboratory Tests Test 07/08/16 20:09 07/08/16 20:20 07/09/16 04:10 07/09/16 08:01 Glucose (Fingerstick) 277mg/dL (70-99) 175mg/dL (70-99) Clostridium difficile Toxin (PCR) Negative (Negative) Sodium Level 133mmol/L (136-145) Potassium Level 4.1mmol/L (3.5-5.1) Chloride Level 96mmol/L (98-107) Carbon Dioxide Level 23mmol/L (21-32) Anion Gap 14 (6-14) Blood Urea Nitrogen 90mg/dL (7-20) Creatinine 7.7mg/dL (0.6-1.0) Estimated GFR (Cockcroft-Gault) 5.4 Glucose Level 225mg/dL (70-99) Calcium Level 7.7mg/dL (8.5-10.1) Random Vancomycin Level 26.1mcg/mL Test 07/09/16 11:24 07/09/16 20:42 07/10/16 04:25 07/10/16 08:00 Glucose (Fingerstick) 171mg/dL (70-99) 208mg/dL (70-99) 284mg/dL (70-99) White Blood Count 11.2x10^3/uL (4.0-11.0) Red Blood Count 3.98x10^6/uL (3.50-5.40) Hemoglobin 10.3g/dL (12.0-15.5) Hematocrit 33.1% (36.0-47.0) Mean Corpuscular Volume 83fL (79-100) Mean Corpuscular Hemoglobin 26pg (25-35) Mean Corpuscular Hemoglobin Concent 31g/dL (31-37) Red Cell Distribution Width 17.3% (11.5-14.5) Platelet Count 180x10^3/uL (140-400) Sodium Level 133mmol/L (136-145) Potassium Level 4.6mmol/L (3.5-5.1) Chloride Level 96mmol/L (98-107) Carbon Dioxide Level 25mmol/L (21-32) Anion Gap 12 (6-14) Blood Urea Nitrogen 55mg/dL (7-20) Creatinine 5.1mg/dL (0.6-1.0) Estimated GFR (Cockcroft-Gault) 8.7 Glucose Level 283mg/dL (70-99) Calcium Level 7.4mg/dL (8.5-10.1) Laboratory Tests Test 07/09/16 20:42 07/10/16 04:25 07/10/16 08:00 Glucose (Fingerstick) 208mg/dL (70-99) 284mg/dL (70-99) White Blood Count 11.2x10^3/uL (4.0-11.0) Red Blood Count 3.98x10^6/uL (3.50-5.40) Hemoglobin 10.3g/dL (12.0-15.5) Hematocrit 33.1% (36.0-47.0) Mean Corpuscular Volume 83fL (79-100) Mean Corpuscular Hemoglobin 26pg (25-35) Mean Corpuscular Hemoglobin Concent 31g/dL (31-37) Red Cell Distribution Width 17.3% (11.5-14.5) Platelet Count 180x10^3/uL (140-400) Sodium Level 133mmol/L (136-145) Potassium Level 4.6mmol/L (3.5-5.1) Chloride Level 96mmol/L (98-107) Carbon Dioxide Level 25mmol/L (21-32) Anion Gap 12 (6-14) Blood Urea Nitrogen 55mg/dL (7-20) Creatinine 5.1mg/dL (0.6-1.0) Estimated GFR (Cockcroft-Gault) 8.7 Glucose Level 283mg/dL (70-99) Calcium Level 7.4mg/dL (8.5-10.1) Microbiology 07/08/16 Blood Culture - Preliminary, Resulted 07/08/16 Blood Culture Result 1 (NEGRITO) - Preliminary, Resulted 07/08/16 Fecal Leukocyte Stain - Final, Complete 07/06/16 Urine Culture - Final, Complete 07/06/16 Urine Culture Result 1 (NEGRITO) - Final, Complete 07/06/16 Gram Stain - Final, Complete Medications Current Medications Sodium Chloride (Iv Sodium Chloride 0.9% 500ml Bag) 500 ml @ 1,000 mls/hr 1X ONCE IV Last administered on 07/06/16 13:33; Start 07/06/16 at 12:45; Stop 01/12 at 13:14; Status DC Ondansetron HCl (Zofran) 4 mg 1X ONCE IV Last administered on 07/06/16 13:33 ; Start 07/06/16 at 12:45; Stop 07/06/16 at 12:46; Status DC Vancomycin HCl (Vanco Per Pharmacy) 1 each PRN DAILY PRN MC SEE COMMENTS Last administered on 07/10/16 12:30; Start 07/06/16 at 14:00 Piperacillin Sod/ Tazobactam Sod (Zosyn Per Pharmacy) 1 each PRN DAILY PRN MC SEE COMMENTS; Start 07/06/16 at 14:00; Stop 07/08/16 at 09:55; Status DC Levofloxacin/ Dextrose 1 each 1 each PRN DAILY PRN MC SEE COMMENTS; Start 07/06 at 14:00; Stop 07/08/16 at 09:55; Status DC Vancomycin HCl/ Sodium Chloride (Iv Sodium Chloride 0.9% 500ml Bag) 500 ml @ 250 mls/hr 1X ONCE IV Last administered on 07/06/16 15:03; Start 07/06/16 at 14:15; Stop 07/06/16 at 16:14; Status DC Ondansetron HCl (Zofran) 4 mg PRN Q8HRS PRN IV NAUSEA/VOMITING; Start 07/06/16 at 14:30; Stop 07/07/16 at 14:29; Status DC Morphine Sulfate 2 mg PRN Q2HR PRN IV PAIN; Start 07/06/16 at 14:30; Stop 07/07 at 14:29; Status DC Acetaminophen 650 mg 650 mg PRN Q4HRS PRN PO FEVER Last administered on 05:17; Start 07/06/16 at 14:30; Stop 07/07/16 at 14:29; Status DC Piperacillin Sod/ Tazobactam Sod 2.25 gm/Sodium Chloride 50 ml @ 100 mls/hr Q8HRS IV Last administered on 07/08/16 05:17; Start 07/06/16 at 15:00; Stop at 09:55; Status DC Levofloxacin/ Dextrose (LEVAQUIN 500mg PREMIX) 100 ml @ 100 mls/hr Q48H IV Last administered on 07/06/16 17:36; Start 07/06/16 at 15:00; Stop 07/08/16 at 09:55; Status DC Darbepoetin Naif 60 mcg 60 mcg WEEKLYHS SQ Last administered on 07/06/16 19:31 ; Start 07/06/16 at 21:00 Sodium Chloride (Iv Sodium Chloride 0.9% 1000ml Bag) 1,000 ml @ 1,000 mls/hr Q1H PRN IV hypotension; Start 07/06/16 at 23:29; Stop 07/07/16 at 05:28; Status DC Sodium Chloride (Normal Saline Flush) 10 ml 1X PRN PRN IV AP catheter pack; Start 07/06/16 at 23:30; Stop 07/07/16 at 23:29; Status DC Sodium Chloride (Normal Saline Flush) 10 ml 1X PRN PRN IV HAND LAMINATOR catheter pack; Start 07/06/16 at 23:30; Stop 07/07/16 at 23:29; Status DC Info (PHARMACY MONITORING -- do not chart) 1 each PRN DAILY PRN MC SEE COMMENTS ; Start 07/06/16 at 23:30; Stop 07/09/16 at 21:17; Status DC Info 1 each 1 each PRN DAILY PRN MC SEE COMMENTS; Start 07/06/16 at 23:30; Stop 07/07/16 at 13:09; Status DC Vancomycin HCl/ Sodium Chloride (Iv Sodium Chloride 0.9% 250ml) 250 ml @ 250 mls/hr 1X ONCE IV Last administered on 07/07/16 06:36; Start 07/07/16 at 06: 30; Stop 07/07/16 at 07:29; Status DC Nystatin (Nystop) 1 stephan BID TP Last administered on 07/10/16 09:01; Start 02/12 at 14:00 Oxycodone HCl (Roxicodone) 5 mg PRN Q4HRS PRN PO PAIN; Start 07/07/16 at 18:00 ; Stop 07/07/16 at 18:38; Status DC Acetaminophen (Tylenol) 650 mg PRN Q6HRS PRN PO MILD PAIN / TEMP Last administered on 07/08/16 04:45; Start 07/07/16 at 18:45 Tramadol HCl (Ultram) 50 mg PRN Q6HRS PRN PO MODERATE PAIN Last administered on 07/08/16 04:45; Start 07/07/16 at 18:45 Acetaminophen/ Hydrocodone Bitart (Lortab 5/325) 1 tab PRN Q4HRS PRN PO SEVERE PAIN Last administered on 07/09/16 20:23; Start 07/08/16 at 09:30 Vancomycin HCl 1 each 1X ONCE MC Last administered on 07/09/16 05:31; Start 07/09/16 at 05:00; Stop 07/09/16 at 05:01; Status DC Amiodarone HCl (Cordarone) 200 mg BID PO Last administered on 07/10/16 09:02; Start 07/08/16 at 21:00 Aripiprazole (Abilify) 2.5 mg DAILY PO Last administered on 07/10/16 14:44; Start 07/09/16 at 09:00 Aspirin (Ecotrin) 81 mg DAILY PO Last administered on 07/10/16 14:46; Start at 15:00 Atorvastatin Calcium (Lipitor) 20 mg HS PO Last administered on 07/09/16 20:25 ; Start 07/08/16 at 21:00 Buspirone HCl (Buspar) 5 mg TID PO Last administered on 07/10/16 14:46; Start 07/08/16 at 15:00 Clonidine HCl (Catapres) 0.2 mg DAILY PO Last administered on 07/10/16 09:02; Start 07/09/16 at 09:00 Docusate Sodium (Colace) 100 mg BID PO Last administered on 07/10/16 14:46; Start 07/08/16 at 21:00 Ferrous Sulfate (Feosol) 325 mg DAILY PO Last administered on 07/10/16 14:46; Start 07/09/16 at 09:00 Heparin Sodium (Porcine) 5,000 unit TID SQ Last administered on 07/10/16 14:58 ; Start 07/08/16 at 15:00 Albuterol/ Ipratropium (Duoneb) 3 ml PRN QID PRN NEB SHORTNESS OF BREATH; Start 07/08/16 at 14:45 Labetalol HCl (Normodyne) 10 mg PRN BID PRN IVP HYPERTENSION, SEE COMMENTS; Start 07/08/16 at 15:15 Nystatin (Nystop) 1 stephan BID TP ; Start 07/08/16 at 21:00; Status Cancel Mirtazapine (Remeron) 7.5 mg DAILY PO Last administered on 07/10/16 14:44; Start 07/09/16 at 09:00 Polyethylene Glycol (miraLAX PACKET) 17 gm DAILY PO ; Start 07/09/16 at 09:00 Sennosides (Senna) 8.6 mg DAILY PO Last administered on 07/10/16 14:45; Start 07/09/16 at 09:00 Non-Formulary Medication 100 mcg WEEKLY SQ TO TREAT ANEMIA; Start 07/15/16 at 09 :00; Status UNV Diltiazem HCl (Cardizem 24hr Cd) 360 mg DAILY PO Last administered on 09:03; Start 07/09/16 at 09:00 Escitalopram Oxalate (Lexapro) 20 mg DAILY PO Last administered on 07/10/16 14 :45; Start 07/09/16 at 09:00 Vitamin B Complex/ Vitamin C (Zoe-Kiran) 1 tab DAILY PO Last administered on 14:45; Start 07/09/16 at 09:00 Gabapentin (Neurontin) 600 mg BID PO Last administered on 07/10/16 14:45; Start 07/08/16 at 21:00 Non-Formulary Medication 9 mg DAILY PO ; Start 07/09/16 at 09:00; Status UNV Insulin Aspart (Novolog) 10 units TIDAC SQ Last administered on 07/10/16 17:30 ; Start 07/08/16 at 16:30 Heparin Sodium (Porcine) (Heparin Sodium) 10,000 unit STK-MED ONCE .ROUTE ; Start 07/09/16 at 11:22; Stop 07/09/16 at 11:23; Status DC Lidocaine/Sodium Bicarbonate 20 ml 20 ml STK-MED ONCE IJ ; Start 07/09/16 at 11: 22; Stop 07/09/16 at 11:23; Status DC Heparin Sodium/ Sodium Chloride 500 ml @ As Directed STK-MED ONCE .ROUTE ; Start 07/09/16 at 11:22; Stop 07/09/16 at 11:23; Status DC Heparin Sodium/ Sodium Chloride 60 unit 1X ONCE IV Last administered on 12:21; Start 07/09/16 at 11:45; Stop 07/09/16 at 11:51; Status DC Heparin Sodium (Porcine) (Heparin Sodium) 2,500 unit 1X ONCE INT CAT Last administered on 07/09/16 12:21; Start 07/09/16 at 11:45; Stop 07/09/16 at 11:51 ; Status DC Lidocaine/Sodium Bicarbonate (Buffered Lidocaine 1%) 3 ml 1X ONCE IJ Last administered on 07/09/16 12:20; Start 07/09/16 at 11:45; Stop 07/09/16 at 11:51 ; Status DC Methylprednisolone Acetate (Depo-Medrol 40mg Vial) 40 mg 1X ONCE IM ; Start at 14:45; Stop 07/09/16 at 14:59; Status DC Bupivacaine HCl 10 ml 10 ml 1X ONCE IJ ; Start 07/09/16 at 14:45; Stop at 14:59; Status DC Sodium Chloride 1,000 ml @ 1,000 mls/hr Q1H PRN IV hypotension; Start 07/09/16 at 15:15; Stop 07/09/16 at 21:14; Status DC Albumin Human (Albuminar) 200 ml @ 200 mls/hr 1X PRN PRN IV Hypotension; Start 07/09/16 at 15:15; Stop 07/09/16 at 21:14; Status DC Acetaminophen (Tylenol) 500 mg 1X PRN PRN PO MILD PAIN / TEMP; Start 07/09/16 at 15:15; Stop 07/10/16 at 15:14; Status DC Diphenhydramine HCl (Benadryl) 25 mg 1X PRN PRN IV ITCHING; Start 07/09/16 at 15:15; Stop 07/10/16 at 15:14; Status DC Diphenhydramine HCl (Benadryl) 25 mg 1X PRN PRN IV ITCHING; Start 07/09/16 at 15:15; Stop 07/10/16 at 15:14; Status DC Labetalol HCl (Normodyne) 10 mg PRN Q1HR PRN IVP SBP > 180; Start 07/09/16 at 15:15; Stop 07/10/16 at 15:14; Status DC Clonidine HCl (Catapres) 0.1 mg 1X PRN PRN PO SBP > 180; Start 07/09/16 at 15: 15; Stop 07/10/16 at 15:14; Status DC Info (PHARMACY MONITORING -- do not chart) 1 each PRN DAILY PRN MC SEE COMMENTS ; Start 07/09/16 at 15:15; Status Cancel Vancomycin HCl 1 each 1 each 1X ONCE MC ; Start 07/11/16 at 06:00; Stop at 06:01 Sodium Chloride (Iv Sodium Chloride 0.9% 1000ml Bag) 1,000 ml @ 1,000 mls/hr Q1H PRN IV hypotension; Start 07/10/16 at 10:45; Stop 07/10/16 at 16:44; Status DC Sodium Chloride (Normal Saline Flush) 10 ml 1X PRN PRN IV AP catheter pack; Start 07/10/16 at 10:45; Stop 07/11/16 at 10:44 Sodium Chloride (Normal Saline Flush) 10 ml 1X PRN PRN IV HAND LAMINATOR catheter pack; Start 07/10/16 at 10:45; Stop 07/11/16 at 10:44 Info (PHARMACY MONITORING -- do not chart) 1 each PRN DAILY PRN MC SEE COMMENTS ; Start 07/10/16 at 10:45; Stop 07/10/16 at 14:25; Status DC Info 1 each 1 each PRN DAILY PRN MC SEE COMMENTS; Start 07/10/16 at 10:45 Lactated Ringer's (Iv Lactated Ringers) 1,000 ml @ 50 mls/hr Q20H IV ; Start at 07:00; Stop 07/13/16 at 18:59 Active Scripts Active Reported Amiodarone Hcl 200 Mg Tablet 200 Mg PO BID Aspir 81 (Aspirin) 81 Mg Tablet.dr 81 Mg PO DAILY Atorvastatin Calcium 20 Mg Tablet 20 Mg PO HS Cardizem Cd (Diltiazem Hcl) 360 Mg Cap.er.24h 360 Mg PO DAILY Docusate Sodium 100 Mg Capsule 100 Mg PO BID Melatonin 3 Mg Tablet 9 Mg PO DAILY Polyethylene Glycol 3350 17 Gm Powd.pack 17 Gm PO DAILY Senna (Sennosides) 8.6 Mg Tablet 8.6 Mg PO DAILY Clonidine Hcl 0.2 Mg Tablet 0.2 Mg PO DAILY Micro-Guard (Miconazole Nitrate) 85 Gm Powder 85 Gm TP BID Humalog (Insulin Lispro) 100 Unit/1 Ml Vial 100 Unit SQ Buspirone Hcl 5 Mg Tablet 5 Mg PO TID Aranesp Vial (Darbepoetin Naif In Polysorbat) 100 Mcg/1 Ml Vial 100 Mcg SQ WEEKLY Nephron Fa Tablet (Fe Fumarate/Dinorah/Fa/Bcomp&C) 1 Each Tablet 1 Each PO DAILY Ferrous Sulfate 325 Mg Tablet 1 Tab PO DAILY Escitalopram Oxalate 20 Mg Tablet 20 Mg PO DAILY Duoneb 0.5-3(2.5) Mg/3 Ml (Albuterol/Ipratropium) 3 Ml Ampul.neb 3 Ml NEB QID PRN Gabapentin 600 Mg Tablet 600 Mg PO BID Mirtazapine 7.5 Mg Tablet 7.5 Mg PO DAILY Abilify (Aripiprazole) 2 Mg Tablet 2.5 Mg PO DAILY Labetalol Hcl 5 Mg/1 Ml Vial 10 Mg IV PRN Heparin Sod 5,000 Unit/ 0.5 Ml (Heparin Sodium,Porcine/Pf) 5,000 Unit/0.5 Ml Vial 5,000 Unit IJ TID Novolin N (Nph, Human Insulin Isophane) 100 Unit/1 Ml Vial 100 Unit SQ PRN Vitals/I & O Vital Sign - Last 24 Hours 07/09/16 07/09/16 07/09/16 07/09/16 19:00 20:00 20:23 22:55 Temp 97.7 99.1 97.7 99.1 Pulse 77 85 Resp 16 18 16 B/P 114/46 106/47 Pulse Ox 98 91 O2 Delivery Nasal Cannula Nasal Cannula Nasal Cannula Nasal Cannula O2 Flow Rate 3.0 3.0 3.0 3.0 07/09/16 07/10/16 07/10/16 07/10/16 23:45 03:00 07:00 07:30 Temp 98.5 97.6 98.5 97.6 Pulse 87 103 80 Resp 16 19 B/P 156/60 109/46 156/71 Pulse Ox 91 85 O2 Delivery Nasal Cannula Room Air Nasal Cannula O2 Flow Rate 3.0 3.0 07/10/16 07/10/16 07/10/16 07/10/16 09:02 09:02 09:03 15:50 Temp 97.7 97.7 Pulse 80 80 80 98 Resp 16 B/P 156/71 156/71 156/71 145/56 Pulse Ox 91 O2 Delivery Nasal Cannula O2 Flow Rate 3.0 Intake and Output 07/09/16 07/09/16 07/10/16 15:00 23:00 07:00 Intake Total 1200 ml 400 ml Output Total 0 ml Balance 1200 ml 400 ml Problem List Problems Medical Problems: (1) Anemia Status: Acute (2) End stage renal disease Status: Acute (3) Generalized weakness Status: Acute (4) Healthcare-associated pneumonia Status: Acute (5) Sepsis Status: Acute (6) Transient hypotension Status: Acute (7) Urinary tract infection Status: Acute Assessment Diarrhea, resolved. MRSA sepsis related to HD device. Plan of Care: Continue current Tx, Mgmt JOSE MANUEL VASQUEZ MD Jul 10, 2016 17:39
--- NOTE | 2016-07-10 18:35 | PDOC ---
PULMONARY PROGRESS NOTES Subjective pt feels better Vitals Vital Signs Date Time Temp Pulse Resp B/P Pulse Ox O2 Delivery O2 Flow Rate FiO2 07/10/16 15:50 97.7 98 16 145/56 91 Nasal Cannula 3.0 97.7 ROS: No Nausea, No Chest Pain, No Abdominal Pain, No Increase Cough General: Alert Lungs: Clear, Other (No chest retractions were present) Cardiovascular: S1, S2 Abdomen: Soft Neuro Exam: Alert Extremities: No Edema Skin: Warm Labs Laboratory Tests Test 07/08/16 20:09 07/08/16 20:20 07/09/16 04:10 07/09/16 08:01 Glucose (Fingerstick) 277mg/dL (70-99) 175mg/dL (70-99) Clostridium difficile Toxin (PCR) Negative (Negative) Sodium Level 133mmol/L (136-145) Potassium Level 4.1mmol/L (3.5-5.1) Chloride Level 96mmol/L (98-107) Carbon Dioxide Level 23mmol/L (21-32) Anion Gap 14 (6-14) Blood Urea Nitrogen 90mg/dL (7-20) Creatinine 7.7mg/dL (0.6-1.0) Estimated GFR (Cockcroft-Gault) 5.4 Glucose Level 225mg/dL (70-99) Calcium Level 7.7mg/dL (8.5-10.1) Random Vancomycin Level 26.1mcg/mL Test 07/09/16 11:24 07/09/16 20:42 07/10/16 04:25 07/10/16 08:00 Glucose (Fingerstick) 171mg/dL (70-99) 208mg/dL (70-99) 284mg/dL (70-99) White Blood Count 11.2x10^3/uL (4.0-11.0) Red Blood Count 3.98x10^6/uL (3.50-5.40) Hemoglobin 10.3g/dL (12.0-15.5) Hematocrit 33.1% (36.0-47.0) Mean Corpuscular Volume 83fL (79-100) Mean Corpuscular Hemoglobin 26pg (25-35) Mean Corpuscular Hemoglobin Concent 31g/dL (31-37) Red Cell Distribution Width 17.3% (11.5-14.5) Platelet Count 180x10^3/uL (140-400) Sodium Level 133mmol/L (136-145) Potassium Level 4.6mmol/L (3.5-5.1) Chloride Level 96mmol/L (98-107) Carbon Dioxide Level 25mmol/L (21-32) Anion Gap 12 (6-14) Blood Urea Nitrogen 55mg/dL (7-20) Creatinine 5.1mg/dL (0.6-1.0) Estimated GFR (Cockcroft-Gault) 8.7 Glucose Level 283mg/dL (70-99) Calcium Level 7.4mg/dL (8.5-10.1) Laboratory Tests Test 07/09/16 20:42 07/10/16 04:25 07/10/16 08:00 Glucose (Fingerstick) 208mg/dL (70-99) 284mg/dL (70-99) White Blood Count 11.2x10^3/uL (4.0-11.0) Red Blood Count 3.98x10^6/uL (3.50-5.40) Hemoglobin 10.3g/dL (12.0-15.5) Hematocrit 33.1% (36.0-47.0) Mean Corpuscular Volume 83fL (79-100) Mean Corpuscular Hemoglobin 26pg (25-35) Mean Corpuscular Hemoglobin Concent 31g/dL (31-37) Red Cell Distribution Width 17.3% (11.5-14.5) Platelet Count 180x10^3/uL (140-400) Sodium Level 133mmol/L (136-145) Potassium Level 4.6mmol/L (3.5-5.1) Chloride Level 96mmol/L (98-107) Carbon Dioxide Level 25mmol/L (21-32) Anion Gap 12 (6-14) Blood Urea Nitrogen 55mg/dL (7-20) Creatinine 5.1mg/dL (0.6-1.0) Estimated GFR (Cockcroft-Gault) 8.7 Glucose Level 283mg/dL (70-99) Calcium Level 7.4mg/dL (8.5-10.1) Medications Active Scripts Medications Dose Route/Sig Days Date Category Amiodarone Hcl 200 Mg Tablet 200 Mg PO BID 08/28/15 Reported Aspir 81 (Aspirin) 81 Mg Tablet.dr 81 Mg PO DAILY 08/28/15 Reported Atorvastatin Calcium 20 Mg Tablet 20 Mg PO HS 08/28/15 Reported Cardizem Cd (Diltiazem Hcl) 360 Mg Cap.er.24h 360 Mg PO DAILY 08/28/15 Reported Docusate Sodium 100 Mg Capsule 100 Mg PO BID 08/28/15 Reported Melatonin 3 Mg Tablet 9 Mg PO DAILY 08/28/15 Reported Polyethylene Glycol 3350 17 Gm Powd.pack 17 Gm PO DAILY 08/28/15 Reported Senna (Sennosides) 8.6 Mg Tablet 8.6 Mg PO DAILY 08/28/15 Reported Clonidine Hcl 0.2 Mg Tablet 0.2 Mg PO DAILY 08/28/15 Reported Micro-Guard (Miconazole Nitrate) 85 Gm Powder 85 Gm TP BID 08/28/15 Reported Humalog (Insulin Lispro) 100 Unit/1 Ml Vial 100 Unit SQ 08/28/15 Reported Buspirone Hcl 5 Mg Tablet 5 Mg PO TID 08/28/15 Reported Aranesp Vial (Darbepoetin Naif In Polysorbat) 100 Mcg/1 Ml Vial 100 Mcg SQ WEEKLY 08/28/15 Reported Nephron Fa Tablet (Fe Fumarate/Dinorah/Fa/Bcomp&C) 1 Each Tablet 1 Each PO DAILY 08/28/15 Reported Ferrous Sulfate 325 Mg Tablet 1 Tab PO DAILY 08/28/15 Reported Escitalopram Oxalate 20 Mg Tablet 20 Mg PO DAILY 08/28/15 Reported Duoneb 0.5-3(2.5) Mg/3 Ml (Albuterol/Ipratropium) 3 Ml Ampul.neb 3 Ml NEB QID PRN 08/28/15 Reported Gabapentin 600 Mg Tablet 600 Mg PO BID 08/28/15 Reported Mirtazapine 7.5 Mg Tablet 7.5 Mg PO DAILY 08/28/15 Reported Abilify (Aripiprazole) 2 Mg Tablet 2.5 Mg PO DAILY 08/28/15 Reported Labetalol Hcl 5 Mg/1 Ml Vial 10 Mg IV PRN 08/28/15 Reported Heparin Sod 5,000 Unit/ 0.5 Ml (Heparin Sodium,Porcine/Pf) 5,000 Unit/0.5 Ml Vial 5,000 Unit IJ TID 08/28/15 Reported Novolin N (Nph, Human Insulin Isophane) 100 Unit/1 Ml Vial 100 Unit SQ PRN 05/31/13 Reported Impression . 1. Acute respiratory failure, suspect sepsis. 2. Sepsis secondary to urinary tract infection. 3. Possible obstructive sleep apnea. 4. End-stage renal disease, noncompliant. 5. Type 2 diabetes. 6. Depression. 7. Hyperlipidemia. Plan . d/w , will continue the same resp status is compensated 1. Continue current antibiotics and deescalate once blood cultures and urine cultures are back. 2. Possible outpatient polysomnogram, will check nocturnal desaturation study prior to discharge. 3. Continue home meds. 4. follow nephro input, new cath for HD 5. follow Gi input FARIDEH COOK MD Jul 10, 2016 18:35
[2016-07-10 19:38] VITALS: BP 116/51
[2016-07-10 19:39] VITALS: BP 116/51
[2016-07-10] MEDS: ATORVASTATIN CALCIUM 20 MG TABLET PO SCH (21:02)
[2016-07-10 23:59] VITALS: BP 131/61
[2016-07-11 03:59] VITALS: BP 139/62
[2016-07-11] MEDS ORDERED: VANCOMYCIN RANDOM LEVEL. MC ONE (06:00)
[2016-07-11 07:00] VITALS: BP 152/56
[2016-07-11] MEDS: INSULIN ASPART 300 UNITS/3 ML INSULN.PEN SQ SCH ×3 (07:30→18:11)
[2016-07-11] MEDS: busPIRone 5 MG TABLET. PO SCH ×3 (09:00→21:05)
[2016-07-11] MEDS: ASPIRIN ENTERIC COATED 81 MG TABLET.DR. PO SCH ×2 (09:00→17:57)
[2016-07-11] MEDS: SENNOSIDES 8.6 MG TABLET PO SCH (09:00)
[2016-07-11] MEDS: NYSTATIN TOPICAL POWDER 15GM BOTTLE. TP SCH ×3 (09:00→21:05)
[2016-07-11] MEDS: AMIODARONE HCL 200 MG TABLET. PO SCH ×3 (09:00→21:05)
[2016-07-11] MEDS: DOCUSATE SODIUM 100 MG CAPSULE. PO SCH ×2 (09:00→21:00)
[2016-07-11] MEDS: FERROUS SULFATE 325 MG TABLET. PO SCH ×2 (09:00→17:57)
[2016-07-11] MEDS: HEPARIN PF for SUB-Q USE 5,000 UNIT/0.5 ML VIAL. SQ SCH ×3 (09:00→21:00)
[2016-07-11] MEDS: ARIPiprazole 2 MG TABLET PO SCH ×2 (09:00→18:24)
[2016-07-11] MEDS: POLYETHYLENE GLYCOL 3350 17 GM PACKET. PO SCH (09:00)
[2016-07-11] MEDS: FOLIC/VIT B COMP W-C (RENAL) TABLET. PO SCH ×2 (09:00→18:03)
[2016-07-11] MEDS: GABAPENTIN 300 MG CAPSULE. PO SCH ×2 (09:00→21:05)
[2016-07-11] MEDS: ESCITALOPRAM 10 MG TABLET. PO SCH ×2 (09:00→17:57)
[2016-07-11] MEDS: cloNIDine HCL 0.2 MG TABLET PO SCH ×2 (09:00→17:56)
[2016-07-11] MEDS: MIRTAZAPINE 7.5 MG TABLET. PO SCH ×2 (09:00→17:58)
--- NOTE | 2016-07-11 09:41 | PDOC ---
PULMONARY PROGRESS NOTES Subjective pt feels better, less sob, no pain, has occ cough Vitals Vital Signs Date Time Temp Pulse Resp B/P Pulse Ox O2 Delivery O2 Flow Rate FiO2 07/11/16 03:59 98.4 70 18 139/62 95 Nasal Cannula 2.5 98.4 ROS: No Nausea, No Chest Pain, No Abdominal Pain, No Increase Cough General: Alert Lungs: Crackles, Other (No chest retractions were present) Cardiovascular: S1, S2 Abdomen: Soft, Non-tender Neuro Exam: Alert Extremities: No Edema Skin: Warm Labs Laboratory Tests Test 07/09/16 11:24 07/09/16 20:42 07/10/16 04:25 07/10/16 08:00 Glucose (Fingerstick) 171mg/dL (70-99) 208mg/dL (70-99) 284mg/dL (70-99) White Blood Count 11.2x10^3/uL (4.0-11.0) Red Blood Count 3.98x10^6/uL (3.50-5.40) Hemoglobin 10.3g/dL (12.0-15.5) Hematocrit 33.1% (36.0-47.0) Mean Corpuscular Volume 83fL (79-100) Mean Corpuscular Hemoglobin 26pg (25-35) Mean Corpuscular Hemoglobin Concent 31g/dL (31-37) Red Cell Distribution Width 17.3% (11.5-14.5) Platelet Count 180x10^3/uL (140-400) Sodium Level 133mmol/L (136-145) Potassium Level 4.6mmol/L (3.5-5.1) Chloride Level 96mmol/L (98-107) Carbon Dioxide Level 25mmol/L (21-32) Anion Gap 12 (6-14) Blood Urea Nitrogen 55mg/dL (7-20) Creatinine 5.1mg/dL (0.6-1.0) Estimated GFR (Cockcroft-Gault) 8.7 Glucose Level 283mg/dL (70-99) Calcium Level 7.4mg/dL (8.5-10.1) Test 07/10/16 20:38 07/11/16 05:15 07/11/16 07:56 Glucose (Fingerstick) 187mg/dL (70-99) 169mg/dL (70-99) Random Vancomycin Level 14.9mcg/mL Laboratory Tests Test 07/10/16 20:38 07/11/16 05:15 07/11/16 07:56 Glucose (Fingerstick) 187mg/dL (70-99) 169mg/dL (70-99) Random Vancomycin Level 14.9mcg/mL Medications Active Scripts Medications Dose Route/Sig Days Date Category Amiodarone Hcl 200 Mg Tablet 200 Mg PO BID 08/28/15 Reported Aspir 81 (Aspirin) 81 Mg Tablet.dr 81 Mg PO DAILY 08/28/15 Reported Atorvastatin Calcium 20 Mg Tablet 20 Mg PO HS 08/28/15 Reported Cardizem Cd (Diltiazem Hcl) 360 Mg Cap.er.24h 360 Mg PO DAILY 08/28/15 Reported Docusate Sodium 100 Mg Capsule 100 Mg PO BID 08/28/15 Reported Melatonin 3 Mg Tablet 9 Mg PO DAILY 08/28/15 Reported Polyethylene Glycol 3350 17 Gm Powd.pack 17 Gm PO DAILY 08/28/15 Reported Senna (Sennosides) 8.6 Mg Tablet 8.6 Mg PO DAILY 08/28/15 Reported Clonidine Hcl 0.2 Mg Tablet 0.2 Mg PO DAILY 08/28/15 Reported Micro-Guard (Miconazole Nitrate) 85 Gm Powder 85 Gm TP BID 08/28/15 Reported Humalog (Insulin Lispro) 100 Unit/1 Ml Vial 100 Unit SQ 08/28/15 Reported Buspirone Hcl 5 Mg Tablet 5 Mg PO TID 08/28/15 Reported Aranesp Vial (Darbepoetin Naif In Polysorbat) 100 Mcg/1 Ml Vial 100 Mcg SQ WEEKLY 08/28/15 Reported Nephron Fa Tablet (Fe Fumarate/Dinorah/Fa/Bcomp&C) 1 Each Tablet 1 Each PO DAILY 08/28/15 Reported Ferrous Sulfate 325 Mg Tablet 1 Tab PO DAILY 08/28/15 Reported Escitalopram Oxalate 20 Mg Tablet 20 Mg PO DAILY 08/28/15 Reported Duoneb 0.5-3(2.5) Mg/3 Ml (Albuterol/Ipratropium) 3 Ml Ampul.neb 3 Ml NEB QID PRN 08/28/15 Reported Gabapentin 600 Mg Tablet 600 Mg PO BID 08/28/15 Reported Mirtazapine 7.5 Mg Tablet 7.5 Mg PO DAILY 08/28/15 Reported Abilify (Aripiprazole) 2 Mg Tablet 2.5 Mg PO DAILY 08/28/15 Reported Labetalol Hcl 5 Mg/1 Ml Vial 10 Mg IV PRN 08/28/15 Reported Heparin Sod 5,000 Unit/ 0.5 Ml (Heparin Sodium,Porcine/Pf) 5,000 Unit/0.5 Ml Vial 5,000 Unit IJ TID 08/28/15 Reported Novolin N (Nph, Human Insulin Isophane) 100 Unit/1 Ml Vial 100 Unit SQ PRN 05/31/13 Reported Impression . 1. Acute respiratory failure, suspect sepsis. 2. Sepsis secondary to urinary tract infection. 3. Possible obstructive sleep apnea. 4. End-stage renal disease, noncompliant. 5. Type 2 diabetes. 6. Depression. 7. Hyperlipidemia. Plan . continue the same resp status is compensated 1. Continue current antibiotics and deescalate once blood cultures and urine cultures are back. 2. outpatient polysomnogram, will check nocturnal desaturation study prior to discharge. 3. Continue home meds. 4. follow nephro input, new cath for HD 5. follow Gi input discussed w LEILANI Vizcaino MD Jul 11, 2016 09:41
--- NOTE | 2016-07-11 10:04 | PDOC ---
PROGRESS NOTES Subjective Subjective She had no new complaints. Objective Objective Vital Signs Date Time Temp Pulse Resp B/P Pulse Ox O2 Delivery O2 Flow Rate FiO2 07/11/16 03:59 98.4 70 18 139/62 95 Nasal Cannula 2.5 98.4 Intake and Output 07/11/16 07:00 Intake Total 360 ml Output Total 0 ml Balance 360 ml Intake Oral 360 ml Output Urine Total 0 ml # Voids 1 # Bowel Movements 1 Physical Exam Physical Exam She is sleepy,supine in bed and had dressing to right heel. Assessment Assessment Problems Medical Problems: (1) Anemia Status: Acute (2) End stage renal disease Status: Acute (3) Generalized weakness Status: Acute (4) Healthcare-associated pneumonia Status: Acute (5) Sepsis Status: Acute (6) Transient hypotension Status: Acute (7) Urinary tract infection Status: Acute Plan Plan of Care To get her up as tolerated and she may be a candidate for SNF or LTAC unit if she needs IV antibiotics which cannot be provided through home health Comment Review of Relevant I have reviewed the following items dominga (where applicable) has been applied. Labs Laboratory Tests Test 07/09/16 11:24 07/09/16 20:42 07/10/16 04:25 07/10/16 08:00 Glucose (Fingerstick) 171mg/dL (70-99) 208mg/dL (70-99) 284mg/dL (70-99) White Blood Count 11.2x10^3/uL (4.0-11.0) Red Blood Count 3.98x10^6/uL (3.50-5.40) Hemoglobin 10.3g/dL (12.0-15.5) Hematocrit 33.1% (36.0-47.0) Mean Corpuscular Volume 83fL (79-100) Mean Corpuscular Hemoglobin 26pg (25-35) Mean Corpuscular Hemoglobin Concent 31g/dL (31-37) Red Cell Distribution Width 17.3% (11.5-14.5) Platelet Count 180x10^3/uL (140-400) Sodium Level 133mmol/L (136-145) Potassium Level 4.6mmol/L (3.5-5.1) Chloride Level 96mmol/L (98-107) Carbon Dioxide Level 25mmol/L (21-32) Anion Gap 12 (6-14) Blood Urea Nitrogen 55mg/dL (7-20) Creatinine 5.1mg/dL (0.6-1.0) Estimated GFR (Cockcroft-Gault) 8.7 Glucose Level 283mg/dL (70-99) Calcium Level 7.4mg/dL (8.5-10.1) Test 07/10/16 20:38 07/11/16 05:15 07/11/16 07:56 Glucose (Fingerstick) 187mg/dL (70-99) 169mg/dL (70-99) Random Vancomycin Level 14.9mcg/mL Laboratory Tests Test 07/10/16 20:38 07/11/16 05:15 07/11/16 07:56 Glucose (Fingerstick) 187mg/dL (70-99) 169mg/dL (70-99) Random Vancomycin Level 14.9mcg/mL Microbiology 07/08/16 Blood Culture - Preliminary, Resulted 07/08/16 Blood Culture Result 1 (NEGRITO) - Preliminary, Resulted 07/08/16 Antimicrobic Susceptibility - Preliminary, Resulted 07/08/16 Fecal Leukocyte Stain - Final, Complete 07/06/16 Urine Culture - Final, Complete 07/06/16 Urine Culture Result 1 (NEGRITO) - Final, Complete 07/06/16 Gram Stain - Final, Complete Medications Current Medications Sodium Chloride (Iv Sodium Chloride 0.9% 500ml Bag) 500 ml @ 1,000 mls/hr 1X ONCE IV Last administered on 07/06/16 13:33; Start 07/06/16 at 12:45; Stop 01/12 at 13:14; Status DC Ondansetron HCl (Zofran) 4 mg 1X ONCE IV Last administered on 07/06/16 13:33 ; Start 07/06/16 at 12:45; Stop 07/06/16 at 12:46; Status DC Vancomycin HCl (Vanco Per Pharmacy) 1 each PRN DAILY PRN MC SEE COMMENTS Last administered on 07/10/16 12:30; Start 07/06/16 at 14:00 Piperacillin Sod/ Tazobactam Sod (Zosyn Per Pharmacy) 1 each PRN DAILY PRN MC SEE COMMENTS; Start 07/06/16 at 14:00; Stop 07/08/16 at 09:55; Status DC Levofloxacin/ Dextrose 1 each 1 each PRN DAILY PRN MC SEE COMMENTS; Start 07/06 at 14:00; Stop 07/08/16 at 09:55; Status DC Vancomycin HCl/ Sodium Chloride (Iv Sodium Chloride 0.9% 500ml Bag) 500 ml @ 250 mls/hr 1X ONCE IV Last administered on 07/06/16 15:03; Start 07/06/16 at 14:15; Stop 07/06/16 at 16:14; Status DC Ondansetron HCl (Zofran) 4 mg PRN Q8HRS PRN IV NAUSEA/VOMITING; Start 07/06/16 at 14:30; Stop 07/07/16 at 14:29; Status DC Morphine Sulfate 2 mg PRN Q2HR PRN IV PAIN; Start 07/06/16 at 14:30; Stop 07/07 at 14:29; Status DC Acetaminophen 650 mg 650 mg PRN Q4HRS PRN PO FEVER Last administered on 05:17; Start 07/06/16 at 14:30; Stop 07/07/16 at 14:29; Status DC Piperacillin Sod/ Tazobactam Sod 2.25 gm/Sodium Chloride 50 ml @ 100 mls/hr Q8HRS IV Last administered on 07/08/16 05:17; Start 07/06/16 at 15:00; Stop at 09:55; Status DC Levofloxacin/ Dextrose (LEVAQUIN 500mg PREMIX) 100 ml @ 100 mls/hr Q48H IV Last administered on 07/06/16 17:36; Start 07/06/16 at 15:00; Stop 07/08/16 at 09:55; Status DC Darbepoetin Naif 60 mcg 60 mcg WEEKLYHS SQ Last administered on 07/06/16 19:31 ; Start 07/06/16 at 21:00 Sodium Chloride (Iv Sodium Chloride 0.9% 1000ml Bag) 1,000 ml @ 1,000 mls/hr Q1H PRN IV hypotension; Start 07/06/16 at 23:29; Stop 07/07/16 at 05:28; Status DC Sodium Chloride (Normal Saline Flush) 10 ml 1X PRN PRN IV AP catheter pack; Start 07/06/16 at 23:30; Stop 07/07/16 at 23:29; Status DC Sodium Chloride (Normal Saline Flush) 10 ml 1X PRN PRN IV GRAIN ELEVATOR CLERK catheter pack; Start 07/06/16 at 23:30; Stop 07/07/16 at 23:29; Status DC Info (PHARMACY MONITORING -- do not chart) 1 each PRN DAILY PRN MC SEE COMMENTS ; Start 07/06/16 at 23:30; Stop 07/09/16 at 21:17; Status DC Info 1 each 1 each PRN DAILY PRN MC SEE COMMENTS; Start 07/06/16 at 23:30; Stop 07/07/16 at 13:09; Status DC Vancomycin HCl/ Sodium Chloride (Iv Sodium Chloride 0.9% 250ml) 250 ml @ 250 mls/hr 1X ONCE IV Last administered on 07/07/16 06:36; Start 07/07/16 at 06: 30; Stop 07/07/16 at 07:29; Status DC Nystatin (Nystop) 1 stephan BID TP Last administered on 07/10/16 09:01; Start 02/12 at 14:00 Oxycodone HCl (Roxicodone) 5 mg PRN Q4HRS PRN PO PAIN; Start 07/07/16 at 18:00 ; Stop 07/07/16 at 18:38; Status DC Acetaminophen (Tylenol) 650 mg PRN Q6HRS PRN PO MILD PAIN / TEMP Last administered on 07/08/16 04:45; Start 07/07/16 at 18:45 Tramadol HCl (Ultram) 50 mg PRN Q6HRS PRN PO MODERATE PAIN Last administered on 07/08/16 04:45; Start 07/07/16 at 18:45 Acetaminophen/ Hydrocodone Bitart (Lortab 5/325) 1 tab PRN Q4HRS PRN PO SEVERE PAIN Last administered on 07/09/16 20:23; Start 07/08/16 at 09:30 Vancomycin HCl 1 each 1X ONCE MC Last administered on 07/09/16 05:31; Start 07/09/16 at 05:00; Stop 07/09/16 at 05:01; Status DC Amiodarone HCl (Cordarone) 200 mg BID PO Last administered on 07/10/16 21:01; Start 07/08/16 at 21:00 Aripiprazole (Abilify) 2.5 mg DAILY PO Last administered on 07/10/16 14:44; Start 07/09/16 at 09:00 Aspirin (Ecotrin) 81 mg DAILY PO Last administered on 07/10/16 14:46; Start at 15:00 Atorvastatin Calcium (Lipitor) 20 mg HS PO Last administered on 07/10/16 21:02 ; Start 07/08/16 at 21:00 Buspirone HCl (Buspar) 5 mg TID PO Last administered on 07/10/16 21:00; Start 07/08/16 at 15:00 Clonidine HCl (Catapres) 0.2 mg DAILY PO Last administered on 07/10/16 09:02; Start 07/09/16 at 09:00 Docusate Sodium (Colace) 100 mg BID PO Last administered on 07/10/16 21:01; Start 07/08/16 at 21:00 Ferrous Sulfate (Feosol) 325 mg DAILY PO Last administered on 07/10/16 14:46; Start 07/09/16 at 09:00 Heparin Sodium (Porcine) 5,000 unit TID SQ Last administered on 07/10/16 21:07 ; Start 07/08/16 at 15:00 Albuterol/ Ipratropium (Duoneb) 3 ml PRN QID PRN NEB SHORTNESS OF BREATH; Start 07/08/16 at 14:45 Labetalol HCl (Normodyne) 10 mg PRN BID PRN IVP HYPERTENSION, SEE COMMENTS; Start 07/08/16 at 15:15 Nystatin (Nystop) 1 stephan BID TP ; Start 07/08/16 at 21:00; Status Cancel Mirtazapine (Remeron) 7.5 mg DAILY PO Last administered on 07/10/16 14:44; Start 07/09/16 at 09:00 Polyethylene Glycol (miraLAX PACKET) 17 gm DAILY PO ; Start 07/09/16 at 09:00 Sennosides (Senna) 8.6 mg DAILY PO Last administered on 07/10/16 14:45; Start 07/09/16 at 09:00 Non-Formulary Medication 100 mcg WEEKLY SQ TO TREAT ANEMIA; Start 07/15/16 at 09 :00; Status UNV Diltiazem HCl (Cardizem 24hr Cd) 360 mg DAILY PO Last administered on 09:03; Start 07/09/16 at 09:00 Escitalopram Oxalate (Lexapro) 20 mg DAILY PO Last administered on 07/10/16 14 :45; Start 07/09/16 at 09:00 Vitamin B Complex/ Vitamin C (Zoe-Kiran) 1 tab DAILY PO Last administered on 14:45; Start 07/09/16 at 09:00 Gabapentin (Neurontin) 600 mg BID PO Last administered on 07/10/16 21:02; Start 07/08/16 at 21:00 Non-Formulary Medication 9 mg DAILY PO ; Start 07/09/16 at 09:00; Status UNV Insulin Aspart (Novolog) 10 units TIDAC SQ Last administered on 07/10/16 17:30 ; Start 07/08/16 at 16:30 Heparin Sodium (Porcine) (Heparin Sodium) 10,000 unit STK-MED ONCE .ROUTE ; Start 07/09/16 at 11:22; Stop 07/09/16 at 11:23; Status DC Lidocaine/Sodium Bicarbonate 20 ml 20 ml STK-MED ONCE IJ ; Start 07/09/16 at 11: 22; Stop 07/09/16 at 11:23; Status DC Heparin Sodium/ Sodium Chloride 500 ml @ As Directed STK-MED ONCE .ROUTE ; Start 07/09/16 at 11:22; Stop 07/09/16 at 11:23; Status DC Heparin Sodium/ Sodium Chloride 60 unit 1X ONCE IV Last administered on 12:21; Start 07/09/16 at 11:45; Stop 07/09/16 at 11:51; Status DC Heparin Sodium (Porcine) (Heparin Sodium) 2,500 unit 1X ONCE INT CAT Last administered on 07/09/16 12:21; Start 07/09/16 at 11:45; Stop 07/09/16 at 11:51 ; Status DC Lidocaine/Sodium Bicarbonate (Buffered Lidocaine 1%) 3 ml 1X ONCE IJ Last administered on 07/09/16 12:20; Start 07/09/16 at 11:45; Stop 07/09/16 at 11:51 ; Status DC Methylprednisolone Acetate (Depo-Medrol 40mg Vial) 40 mg 1X ONCE IM ; Start at 14:45; Stop 07/09/16 at 14:59; Status DC Bupivacaine HCl 10 ml 10 ml 1X ONCE IJ ; Start 07/09/16 at 14:45; Stop at 14:59; Status DC Sodium Chloride 1,000 ml @ 1,000 mls/hr Q1H PRN IV hypotension; Start 07/09/16 at 15:15; Stop 07/09/16 at 21:14; Status DC Albumin Human (Albuminar) 200 ml @ 200 mls/hr 1X PRN PRN IV Hypotension; Start 07/09/16 at 15:15; Stop 07/09/16 at 21:14; Status DC Acetaminophen (Tylenol) 500 mg 1X PRN PRN PO MILD PAIN / TEMP; Start 07/09/16 at 15:15; Stop 07/10/16 at 15:14; Status DC Diphenhydramine HCl (Benadryl) 25 mg 1X PRN PRN IV ITCHING; Start 07/09/16 at 15:15; Stop 07/10/16 at 15:14; Status DC Diphenhydramine HCl (Benadryl) 25 mg 1X PRN PRN IV ITCHING; Start 07/09/16 at 15:15; Stop 07/10/16 at 15:14; Status DC Labetalol HCl (Normodyne) 10 mg PRN Q1HR PRN IVP SBP > 180; Start 07/09/16 at 15:15; Stop 07/10/16 at 15:14; Status DC Clonidine HCl (Catapres) 0.1 mg 1X PRN PRN PO SBP > 180; Start 07/09/16 at 15: 15; Stop 07/10/16 at 15:14; Status DC Info (PHARMACY MONITORING -- do not chart) 1 each PRN DAILY PRN MC SEE COMMENTS ; Start 07/09/16 at 15:15; Status Cancel Vancomycin HCl 1 each 1 each 1X ONCE MC ; Start 07/11/16 at 06:00; Stop at 06:01; Status DC Sodium Chloride (Iv Sodium Chloride 0.9% 1000ml Bag) 1,000 ml @ 1,000 mls/hr Q1H PRN IV hypotension; Start 07/10/16 at 10:45; Stop 07/10/16 at 16:44; Status DC Sodium Chloride (Normal Saline Flush) 10 ml 1X PRN PRN IV AP catheter pack; Start 07/10/16 at 10:45; Stop 07/11/16 at 10:44 Sodium Chloride (Normal Saline Flush) 10 ml 1X PRN PRN IV GRAIN ELEVATOR CLERK catheter pack; Start 07/10/16 at 10:45; Stop 07/11/16 at 10:44 Info (PHARMACY MONITORING -- do not chart) 1 each PRN DAILY PRN MC SEE COMMENTS ; Start 07/10/16 at 10:45; Stop 07/10/16 at 14:25; Status DC Info 1 each 1 each PRN DAILY PRN MC SEE COMMENTS; Start 07/10/16 at 10:45 Lactated Ringer's (Iv Lactated Ringers) 1,000 ml @ 50 mls/hr Q20H IV ; Start at 07:00; Stop 07/13/16 at 18:59 Active Scripts Active Reported Amiodarone Hcl 200 Mg Tablet 200 Mg PO BID Aspir 81 (Aspirin) 81 Mg Tablet.dr 81 Mg PO DAILY Atorvastatin Calcium 20 Mg Tablet 20 Mg PO HS Cardizem Cd (Diltiazem Hcl) 360 Mg Cap.er.24h 360 Mg PO DAILY Docusate Sodium 100 Mg Capsule 100 Mg PO BID Melatonin 3 Mg Tablet 9 Mg PO DAILY Polyethylene Glycol 3350 17 Gm Powd.pack 17 Gm PO DAILY Senna (Sennosides) 8.6 Mg Tablet 8.6 Mg PO DAILY Clonidine Hcl 0.2 Mg Tablet 0.2 Mg PO DAILY Micro-Guard (Miconazole Nitrate) 85 Gm Powder 85 Gm TP BID Humalog (Insulin Lispro) 100 Unit/1 Ml Vial 100 Unit SQ Buspirone Hcl 5 Mg Tablet 5 Mg PO TID Aranesp Vial (Darbepoetin Naif In Polysorbat) 100 Mcg/1 Ml Vial 100 Mcg SQ WEEKLY Nephron Fa Tablet (Fe Fumarate/Dinorah/Fa/Bcomp&C) 1 Each Tablet 1 Each PO DAILY Ferrous Sulfate 325 Mg Tablet 1 Tab PO DAILY Escitalopram Oxalate 20 Mg Tablet 20 Mg PO DAILY Duoneb 0.5-3(2.5) Mg/3 Ml (Albuterol/Ipratropium) 3 Ml Ampul.neb 3 Ml NEB QID PRN Gabapentin 600 Mg Tablet 600 Mg PO BID Mirtazapine 7.5 Mg Tablet 7.5 Mg PO DAILY Abilify (Aripiprazole) 2 Mg Tablet 2.5 Mg PO DAILY Labetalol Hcl 5 Mg/1 Ml Vial 10 Mg IV PRN Heparin Sod 5,000 Unit/ 0.5 Ml (Heparin Sodium,Porcine/Pf) 5,000 Unit/0.5 Ml Vial 5,000 Unit IJ TID Novolin N (Nph, Human Insulin Isophane) 100 Unit/1 Ml Vial 100 Unit SQ PRN Vitals/I & O Vital Sign - Last 24 Hours 07/10/16 07/10/16 07/10/16 07/10/16 15:50 19:39 20:00 21:01 Temp 97.7 97.4 97.7 97.4 Pulse 98 67 67 Resp 16 20 B/P 145/56 116/51 116/51 Pulse Ox 91 98 O2 Delivery Nasal Cannula Nasal Cannula Nasal Cannula O2 Flow Rate 3.0 2.5 3.0 07/10/16 07/11/16 23:59 03:59 Temp 98.2 98.4 98.2 98.4 Pulse 67 70 Resp 18 18 B/P 131/61 139/62 Pulse Ox 98 95 O2 Delivery Nasal Cannula Nasal Cannula O2 Flow Rate 2.5 2.5 Intake and Output 07/10/16 07/10/16 07/11/16 15:00 23:00 07:00 Intake Total 120 ml 240 ml Output Total 0 ml Balance 120 ml 240 ml Nutrition Consultation Dietary Evaluation: Recommendations by RD: Increase Calorie Intake, Protein supplementation Comments: Changed boost [facility] renal TID - 475kcal and 21.6g protein Expected Outcomes/Goals: diet advancement: met new goal: to meet >75% est nutr needs Malnutrition Findings: Food and Nutrition Intake (Mod: <75% est energy req 7days Weight Status: Morbidly Obese Fluid Accumulation (Non-Severe: Mild depletion SHAZIA COLEMAN MD Jul 11, 2016 10:04
[2016-07-11 11:00] VITALS: BP 158/64
--- NOTE | 2016-07-11 13:21 | PDOC ---
Infectious Disease Note Subjective Subjective Sleeping soundly. Responds to voice present. No concerns voiced at this time Vital Sign Vital Signs Vital Signs Date Time Temp Pulse Resp B/P Pulse Ox O2 Delivery O2 Flow Rate FiO2 07/11/16 11:00 98.4 68 20 158/64 97 Nasal Cannula 2.5 98.4 Physical Exam PHYSICAL EXAM GENERAL: Sleeping LUNGS: Clear HEART: S1S2, no gallop, no murmur appreciated ABD: Obese, soft, No grimace to palpation EXT: No edema, no cyanosis SKIN: No rash IV: ok HDC. clean Labs Lab Laboratory Tests Test 07/10/16 20:38 07/11/16 05:15 07/11/16 07:56 07/11/16 08:21 Glucose (Fingerstick) 187mg/dL (70-99) 169mg/dL (70-99) 171mg/dL (70-99) Random Vancomycin Level 14.9mcg/mL Test 07/11/16 11:27 Glucose (Fingerstick) 176mg/dL (70-99) Micro 07/08. BLOOD CULT RESULT 1 Preliminary Staphylococcus aureus MICS are expressed in micrograms per mL Antibiotic RSLT#1 Ciprofloxacin S Gentamicin S Levofloxacin S Linezolid S Nitrofurantoin S Oxacillin R Penicillin R Rifampin S Tetracycline S Trimethoprim/Sulfa S Vancomycin S 07/06 BLOOD CULTURE PRL Final Final report Staphylococcus aureus MICS are expressed in micrograms per mL Antibiotic RSLT#1 Ciprofloxacin S Gentamicin S Levofloxacin S Linezolid S Nitrofurantoin I Oxacillin R Penicillin R Rifampin S Tetracycline S Trimethoprim/Sulfa S Vancomycin S Objective Assessment MRSA Sepsis. POA - no peripheral stigmata -Positive BC 07/06, 07/08 Infected HDC catheter. MRSA -s/p placement temp [facility] HDC 07/09 -s/p removal RI HDC 07/07 Encephalopathy ESRD Obesity Steroid injection, 07/09 Plan Plan of Care vanc Trough 14.9 Await TO repeat BC D/w Attending Co-Sign Attending Co-Sign The patient was seen and interviewed as well as examined at the bedside. The chart was reviewed. The case was discussed. Agree with the plan of care. JOSE CARLOS MORENO APRN Jul 11, 2016 13:21 EDITH MAI MD Jul 11, 2016 13:29
--- NOTE | 2016-07-11 14:30 | PDOC ---
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 Rogers was asleep during our visit and was in NAD. She was on 2.5L of oxygen. She was on vancomycin and fluids. We are still awaiting placement for possible LTAC. Vitals Vitals Vital Signs Date Time Temp Pulse Resp B/P Pulse Ox O2 Delivery O2 Flow Rate FiO2 07/11/16 11:00 98.4 68 20 158/64 97 Nasal Cannula 2.5 98.4 Physical Exam General: Alert, Cooperative Heart: Regular rate, Normal S1, Normal S2 Lungs: Clear, Other (No chest retractions were present) Abdomen: Soft, No tenderness Extremities: No clubbing, No cyanosis Skin: No rashes, No breakdown Labs LABS Laboratory Tests Test 07/10/16 20:38 07/11/16 05:15 07/11/16 07:56 07/11/16 08:21 Glucose (Fingerstick) 187mg/dL (70-99) 169mg/dL (70-99) 171mg/dL (70-99) Random Vancomycin Level 14.9mcg/mL Test 07/11/16 11:27 Glucose (Fingerstick) 176mg/dL (70-99) Review of Systems Review of Systems The patient was resting comfortably and would not respond to questions. Assessment and Plan Assessmemt and Plan Problems Medical Problems: (1) Anemia Status: Acute (2) End stage renal disease Status: Acute (3) Generalized weakness Status: Acute (4) Healthcare-associated pneumonia Status: Acute (5) Sepsis Status: Acute (6) Transient hypotension Status: Acute (7) Urinary tract infection Status: Acute Assessment: Ms. Rogers is a 60 year old female who presented with a 5 day history of diarrhea. 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 Continue antibiotic vancomycin 2. Continue pain management Lortab, Ultram, acetaminophen 3. Continue home medications 4. Continue PT/OT 5. Recheck labs 6. Pending LTAC 7. Appreciate consultation from ID, IR, Nephrology, PM&R, pulmonology, cardiology, and GI Problems: Comment Review of Relevant I have reviewed the following items dominga (where applicable) has been applied. Labs Laboratory Tests Test 07/09/16 20:42 07/10/16 04:25 07/10/16 08:00 07/10/16 20:38 Glucose (Fingerstick) 208mg/dL (70-99) 284mg/dL (70-99) 187mg/dL (70-99) White Blood Count 11.2x10^3/uL (4.0-11.0) Red Blood Count 3.98x10^6/uL (3.50-5.40) Hemoglobin 10.3g/dL (12.0-15.5) Hematocrit 33.1% (36.0-47.0) Mean Corpuscular Volume 83fL (79-100) Mean Corpuscular Hemoglobin 26pg (25-35) Mean Corpuscular Hemoglobin Concent 31g/dL (31-37) Red Cell Distribution Width 17.3% (11.5-14.5) Platelet Count 180x10^3/uL (140-400) Sodium Level 133mmol/L (136-145) Potassium Level 4.6mmol/L (3.5-5.1) Chloride Level 96mmol/L (98-107) Carbon Dioxide Level 25mmol/L (21-32) Anion Gap 12 (6-14) Blood Urea Nitrogen 55mg/dL (7-20) Creatinine 5.1mg/dL (0.6-1.0) Estimated GFR (Cockcroft-Gault) 8.7 Glucose Level 283mg/dL (70-99) Calcium Level 7.4mg/dL (8.5-10.1) Test 07/11/16 05:15 07/11/16 07:56 07/11/16 08:21 07/11/16 11:27 Random Vancomycin Level 14.9mcg/mL Glucose (Fingerstick) 169mg/dL (70-99) 171mg/dL (70-99) 176mg/dL (70-99) Laboratory Tests Test 07/10/16 20:38 07/11/16 05:15 07/11/16 07:56 07/11/16 08:21 Glucose (Fingerstick) 187mg/dL (70-99) 169mg/dL (70-99) 171mg/dL (70-99) Random Vancomycin Level 14.9mcg/mL Test 07/11/16 11:27 Glucose (Fingerstick) 176mg/dL (70-99) Microbiology 07/08/16 Blood Culture - Preliminary, Resulted 07/08/16 Blood Culture Result 1 (NEGRITO) - Preliminary, Resulted 07/08/16 Antimicrobic Susceptibility - Preliminary, Resulted 07/08/16 Fecal Leukocyte Stain - Final, Complete 07/06/16 Urine Culture - Final, Complete 07/06/16 Urine Culture Result 1 (NEGRITO) - Final, Complete 07/06/16 Gram Stain - Final, Complete Medications Current Medications Sodium Chloride (Iv Sodium Chloride 0.9% 500ml Bag) 500 ml @ 1,000 mls/hr 1X ONCE IV Last administered on 07/06/16 13:33; Start 07/06/16 at 12:45; Stop 01/12 at 13:14; Status DC Ondansetron HCl (Zofran) 4 mg 1X ONCE IV Last administered on 07/06/16 13:33 ; Start 07/06/16 at 12:45; Stop 07/06/16 at 12:46; Status DC Vancomycin HCl (Vanco Per Pharmacy) 1 each PRN DAILY PRN MC SEE COMMENTS Last administered on 07/10/16 12:30; Start 07/06/16 at 14:00 Piperacillin Sod/ Tazobactam Sod (Zosyn Per Pharmacy) 1 each PRN DAILY PRN MC SEE COMMENTS; Start 07/06/16 at 14:00; Stop 07/08/16 at 09:55; Status DC Levofloxacin/ Dextrose 1 each 1 each PRN DAILY PRN MC SEE COMMENTS; Start 07/06 at 14:00; Stop 07/08/16 at 09:55; Status DC Vancomycin HCl/ Sodium Chloride (Iv Sodium Chloride 0.9% 500ml Bag) 500 ml @ 250 mls/hr 1X ONCE IV Last administered on 07/06/16 15:03; Start 07/06/16 at 14:15; Stop 07/06/16 at 16:14; Status DC Ondansetron HCl (Zofran) 4 mg PRN Q8HRS PRN IV NAUSEA/VOMITING; Start 07/06/16 at 14:30; Stop 07/07/16 at 14:29; Status DC Morphine Sulfate 2 mg PRN Q2HR PRN IV PAIN; Start 07/06/16 at 14:30; Stop 07/07 at 14:29; Status DC Acetaminophen 650 mg 650 mg PRN Q4HRS PRN PO FEVER Last administered on 05:17; Start 07/06/16 at 14:30; Stop 07/07/16 at 14:29; Status DC Piperacillin Sod/ Tazobactam Sod 2.25 gm/Sodium Chloride 50 ml @ 100 mls/hr Q8HRS IV Last administered on 07/08/16 05:17; Start 07/06/16 at 15:00; Stop at 09:55; Status DC Levofloxacin/ Dextrose (LEVAQUIN 500mg PREMIX) 100 ml @ 100 mls/hr Q48H IV Last administered on 07/06/16 17:36; Start 07/06/16 at 15:00; Stop 07/08/16 at 09:55; Status DC Darbepoetin Naif 60 mcg 60 mcg WEEKLYHS SQ Last administered on 07/06/16 19:31 ; Start 07/06/16 at 21:00 Sodium Chloride (Iv Sodium Chloride 0.9% 1000ml Bag) 1,000 ml @ 1,000 mls/hr Q1H PRN IV hypotension; Start 07/06/16 at 23:29; Stop 07/07/16 at 05:28; Status DC Sodium Chloride (Normal Saline Flush) 10 ml 1X PRN PRN IV AP catheter pack; Start 07/06/16 at 23:30; Stop 07/07/16 at 23:29; Status DC Sodium Chloride (Normal Saline Flush) 10 ml 1X PRN PRN IV [employer]ENT [employer] catheter pack; Start 07/06/16 at 23:30; Stop 07/07/16 at 23:29; Status DC Info (PHARMACY MONITORING -- do not chart) 1 each PRN DAILY PRN MC SEE COMMENTS ; Start 07/06/16 at 23:30; Stop 07/09/16 at 21:17; Status DC Info 1 each 1 each PRN DAILY PRN MC SEE COMMENTS; Start 07/06/16 at 23:30; Stop 07/07/16 at 13:09; Status DC Vancomycin HCl/ Sodium Chloride (Iv Sodium Chloride 0.9% 250ml) 250 ml @ 250 mls/hr 1X ONCE IV Last administered on 07/07/16 06:36; Start 07/07/16 at 06: 30; Stop 07/07/16 at 07:29; Status DC Nystatin (Nystop) 1 stephan BID TP Last administered on 07/10/16 09:01; Start 02/12 at 14:00 Oxycodone HCl (Roxicodone) 5 mg PRN Q4HRS PRN PO PAIN; Start 07/07/16 at 18:00 ; Stop 07/07/16 at 18:38; Status DC Acetaminophen (Tylenol) 650 mg PRN Q6HRS PRN PO MILD PAIN / TEMP Last administered on 07/08/16 04:45; Start 07/07/16 at 18:45 Tramadol HCl (Ultram) 50 mg PRN Q6HRS PRN PO MODERATE PAIN Last administered on 07/08/16 04:45; Start 07/07/16 at 18:45 Acetaminophen/ Hydrocodone Bitart (Lortab 5/325) 1 tab PRN Q4HRS PRN PO SEVERE PAIN Last administered on 07/09/16 20:23; Start 07/08/16 at 09:30 Vancomycin HCl 1 each 1X ONCE MC Last administered on 07/09/16 05:31; Start 07/09/16 at 05:00; Stop 07/09/16 at 05:01; Status DC Amiodarone HCl (Cordarone) 200 mg BID PO Last administered on 07/10/16 21:01; Start 07/08/16 at 21:00 Aripiprazole (Abilify) 2.5 mg DAILY PO Last administered on 07/10/16 14:44; Start 07/09/16 at 09:00 Aspirin (Ecotrin) 81 mg DAILY PO Last administered on 07/10/16 14:46; Start at 15:00 Atorvastatin Calcium (Lipitor) 20 mg HS PO Last administered on 07/10/16 21:02 ; Start 07/08/16 at 21:00 Buspirone HCl (Buspar) 5 mg TID PO Last administered on 07/10/16 21:00; Start 07/08/16 at 15:00 Clonidine HCl (Catapres) 0.2 mg DAILY PO Last administered on 07/10/16 09:02; Start 07/09/16 at 09:00 Docusate Sodium (Colace) 100 mg BID PO Last administered on 07/10/16 21:01; Start 07/08/16 at 21:00 Ferrous Sulfate (Feosol) 325 mg DAILY PO Last administered on 07/10/16 14:46; Start 07/09/16 at 09:00 Heparin Sodium (Porcine) 5,000 unit TID SQ Last administered on 07/10/16 21:07 ; Start 07/08/16 at 15:00 Albuterol/ Ipratropium (Duoneb) 3 ml PRN QID PRN NEB SHORTNESS OF BREATH; Start 07/08/16 at 14:45 Labetalol HCl (Normodyne) 10 mg PRN BID PRN IVP HYPERTENSION, SEE COMMENTS; Start 07/08/16 at 15:15 Nystatin (Nystop) 1 stephan BID TP ; Start 07/08/16 at 21:00; Status Cancel Mirtazapine (Remeron) 7.5 mg DAILY PO Last administered on 07/10/16 14:44; Start 07/09/16 at 09:00 Polyethylene Glycol (miraLAX PACKET) 17 gm DAILY PO ; Start 07/09/16 at 09:00 Sennosides (Senna) 8.6 mg DAILY PO Last administered on 07/10/16 14:45; Start 07/09/16 at 09:00 Non-Formulary Medication 100 mcg WEEKLY SQ TO TREAT ANEMIA; Start 07/15/16 at 09 :00; Status UNV Diltiazem HCl (Cardizem 24hr Cd) 360 mg DAILY PO Last administered on 09:03; Start 07/09/16 at 09:00 Escitalopram Oxalate (Lexapro) 20 mg DAILY PO Last administered on 07/10/16 14 :45; Start 07/09/16 at 09:00 Vitamin B Complex/ Vitamin C (Zoe-Kiran) 1 tab DAILY PO Last administered on 14:45; Start 07/09/16 at 09:00 Gabapentin (Neurontin) 600 mg BID PO Last administered on 07/10/16 21:02; Start 07/08/16 at 21:00 Non-Formulary Medication 9 mg DAILY PO ; Start 07/09/16 at 09:00; Status UNV Insulin Aspart (Novolog) 10 units TIDAC SQ Last administered on 07/10/16 17:30 ; Start 07/08/16 at 16:30 Heparin Sodium (Porcine) (Heparin Sodium) 10,000 unit STK-MED ONCE .ROUTE ; Start 07/09/16 at 11:22; Stop 07/09/16 at 11:23; Status DC Lidocaine/Sodium Bicarbonate 20 ml 20 ml STK-MED ONCE IJ ; Start 07/09/16 at 11: 22; Stop 07/09/16 at 11:23; Status DC Heparin Sodium/ Sodium Chloride 500 ml @ As Directed STK-MED ONCE .ROUTE ; Start 07/09/16 at 11:22; Stop 07/09/16 at 11:23; Status DC Heparin Sodium/ Sodium Chloride 60 unit 1X ONCE IV Last administered on 12:21; Start 07/09/16 at 11:45; Stop 07/09/16 at 11:51; Status DC Heparin Sodium (Porcine) (Heparin Sodium) 2,500 unit 1X ONCE INT CAT Last administered on 07/09/16 12:21; Start 07/09/16 at 11:45; Stop 07/09/16 at 11:51 ; Status DC Lidocaine/Sodium Bicarbonate (Buffered Lidocaine 1%) 3 ml 1X ONCE IJ Last administered on 07/09/16 12:20; Start 07/09/16 at 11:45; Stop 07/09/16 at 11:51 ; Status DC Methylprednisolone Acetate (Depo-Medrol 40mg Vial) 40 mg 1X ONCE IM ; Start at 14:45; Stop 07/09/16 at 14:59; Status DC Bupivacaine HCl 10 ml 10 ml 1X ONCE IJ ; Start 07/09/16 at 14:45; Stop at 14:59; Status DC Sodium Chloride 1,000 ml @ 1,000 mls/hr Q1H PRN IV hypotension; Start 07/09/16 at 15:15; Stop 07/09/16 at 21:14; Status DC Albumin Human (Albuminar) 200 ml @ 200 mls/hr 1X PRN PRN IV Hypotension; Start 07/09/16 at 15:15; Stop 07/09/16 at 21:14; Status DC Acetaminophen (Tylenol) 500 mg 1X PRN PRN PO MILD PAIN / TEMP; Start 07/09/16 at 15:15; Stop 07/10/16 at 15:14; Status DC Diphenhydramine HCl (Benadryl) 25 mg 1X PRN PRN IV ITCHING; Start 07/09/16 at 15:15; Stop 07/10/16 at 15:14; Status DC Diphenhydramine HCl (Benadryl) 25 mg 1X PRN PRN IV ITCHING; Start 07/09/16 at 15:15; Stop 07/10/16 at 15:14; Status DC Labetalol HCl (Normodyne) 10 mg PRN Q1HR PRN IVP SBP > 180; Start 07/09/16 at 15:15; Stop 07/10/16 at 15:14; Status DC Clonidine HCl (Catapres) 0.1 mg 1X PRN PRN PO SBP > 180; Start 07/09/16 at 15: 15; Stop 07/10/16 at 15:14; Status DC Info (PHARMACY MONITORING -- do not chart) 1 each PRN DAILY PRN MC SEE COMMENTS ; Start 07/09/16 at 15:15; Status Cancel Vancomycin HCl 1 each 1 each 1X ONCE MC ; Start 07/11/16 at 06:00; Stop at 06:01; Status DC Sodium Chloride (Iv Sodium Chloride 0.9% 1000ml Bag) 1,000 ml @ 1,000 mls/hr Q1H PRN IV hypotension; Start 07/10/16 at 10:45; Stop 07/10/16 at 16:44; Status DC Sodium Chloride (Normal Saline Flush) 10 ml 1X PRN PRN IV AP catheter pack; Start 07/10/16 at 10:45; Stop 07/11/16 at 10:44; Status DC Sodium Chloride (Normal Saline Flush) 10 ml 1X PRN PRN IV [employer] catheter pack; Start 07/10/16 at 10:45; Stop 07/11/16 at 10:44; Status DC Info (PHARMACY MONITORING -- do not chart) 1 each PRN DAILY PRN MC SEE COMMENTS ; Start 07/10/16 at 10:45; Stop 07/10/16 at 14:25; Status DC Info 1 each 1 each PRN DAILY PRN MC SEE COMMENTS; Start 07/10/16 at 10:45 Lactated Ringer's (Iv Lactated Ringers) 1,000 ml @ 50 mls/hr Q20H IV ; Start at 07:00; Stop 07/13/16 at 18:59 Active Scripts Active Reported Amiodarone Hcl 200 Mg Tablet 200 Mg PO BID Aspir 81 (Aspirin) 81 Mg Tablet.dr 81 Mg PO DAILY Atorvastatin Calcium 20 Mg Tablet 20 Mg PO HS Cardizem Cd (Diltiazem Hcl) 360 Mg Cap.er.24h 360 Mg PO DAILY Docusate Sodium 100 Mg Capsule 100 Mg PO BID Melatonin 3 Mg Tablet 9 Mg PO DAILY Polyethylene Glycol 3350 17 Gm Powd.pack 17 Gm PO DAILY Senna (Sennosides) 8.6 Mg Tablet 8.6 Mg PO DAILY Clonidine Hcl 0.2 Mg Tablet 0.2 Mg PO DAILY Micro-Guard (Miconazole Nitrate) 85 Gm Powder 85 Gm TP BID Humalog (Insulin Lispro) 100 Unit/1 Ml Vial 100 Unit SQ Buspirone Hcl 5 Mg Tablet 5 Mg PO TID Aranesp Vial (Darbepoetin Naif In Polysorbat) 100 Mcg/1 Ml Vial 100 Mcg SQ WEEKLY Nephron Fa Tablet (Fe Fumarate/Dinorah/Fa/Bcomp&C) 1 Each Tablet 1 Each PO DAILY Ferrous Sulfate 325 Mg Tablet 1 Tab PO DAILY Escitalopram Oxalate 20 Mg Tablet 20 Mg PO DAILY Duoneb 0.5-3(2.5) Mg/3 Ml (Albuterol/Ipratropium) 3 Ml Ampul.neb 3 Ml NEB QID PRN Gabapentin 600 Mg Tablet 600 Mg PO BID Mirtazapine 7.5 Mg Tablet 7.5 Mg PO DAILY Abilify (Aripiprazole) 2 Mg Tablet 2.5 Mg PO DAILY Labetalol Hcl 5 Mg/1 Ml Vial 10 Mg IV PRN Heparin Sod 5,000 Unit/ 0.5 Ml (Heparin Sodium,Porcine/Pf) 5,000 Unit/0.5 Ml Vial 5,000 Unit IJ TID Novolin N (Nph, Human Insulin Isophane) 100 Unit/1 Ml Vial 100 Unit SQ PRN Vitals/I & O Vital Sign - Last 24 Hours 07/10/16 07/10/16 07/10/16 07/10/16 15:50 19:39 20:00 21:01 Temp 97.7 97.4 97.7 97.4 Pulse 98 67 67 Resp 16 20 B/P 145/56 116/51 116/51 Pulse Ox 91 98 O2 Delivery Nasal Cannula Nasal Cannula Nasal Cannula O2 Flow Rate 3.0 2.5 3.0 07/10/16 07/11/16 07/11/16 07/11/16 23:59 03:59 07:00 11:00 Temp 98.2 98.4 98.3 98.4 98.2 98.4 98.3 98.4 Pulse 67 70 66 68 Resp 18 18 18 20 B/P 131/61 139/62 152/56 158/64 Pulse Ox 98 95 96 97 O2 Delivery Nasal Cannula Nasal Cannula Nasal Cannula Nasal Cannula O2 Flow Rate 2.5 2.5 2.5 2.5 Intake and Output 07/10/16 07/10/16 07/11/16 15:00 23:00 07:00 Intake Total 120 ml 240 ml Output Total 0 ml Balance 120 ml 240 ml Nutrition Consultation Dietary Evaluation: Recommendations by RD: Increase Calorie Intake, Protein supplementation Comments: Changed boost [facility] to [facility] renal TID - 475kcal and 21.6g protein Expected Outcomes/Goals: diet advancement: met new goal: to meet >75% est nutr needs Malnutrition Findings: Food and Nutrition Intake (Mod: <75% est energy req 7days Weight Status: Morbidly Obese Fluid Accumulation (Non-Severe: Mild depletion CASTMARIA ESTHERNIAL K III DO Jul 11, 2016 14:30
[2016-07-11 15:00] VITALS: BP 141/71
[2016-07-11] MEDS: VANCOMYCIN PER PHARMACY MC PRN (16:07)
[2016-07-11] MEDS ORDERED: VANCOMYCIN 500 MG in IV NORMAL SALINE 100ML 100 ML IV ONE (18:00)
[2016-07-11 19:00] VITALS: BP 156/60
[2016-07-11] MEDS: ATORVASTATIN CALCIUM 20 MG TABLET PO SCH (21:05)
[2016-07-11 23:00] VITALS: BP 146/63
--- NOTE | 2016-07-12 06:30 | PDOC ---
PULMONARY PROGRESS NOTES Subjective pt feels better, less sob, no pain, has occ cough Vitals Vital Signs Date Time Temp Pulse Resp B/P Pulse Ox O2 Delivery O2 Flow Rate FiO2 07/11/16 23:00 97.8 63 20 146/63 96 Nasal Cannula 97.8 07/11/16 20:00 2.5 ROS: No Nausea, No Chest Pain, No Abdominal Pain, No Increase Cough General: Alert Lungs: Crackles, Other (No chest retractions were present) Cardiovascular: S1, S2 Abdomen: Soft, Non-tender Neuro Exam: Alert Extremities: No Edema Skin: Warm Labs Laboratory Tests Test 07/10/16 08:00 07/10/16 16:40 07/10/16 20:38 07/11/16 05:15 Glucose (Fingerstick) 284mg/dL (70-99) 189mg/dL (70-99) 187mg/dL (70-99) Random Vancomycin Level 14.9mcg/mL Test 07/11/16 07:56 07/11/16 08:21 07/11/16 11:27 07/11/16 16:32 Glucose (Fingerstick) 169mg/dL (70-99) 171mg/dL (70-99) 176mg/dL (70-99) 172mg/dL (70-99) Laboratory Tests Test 07/11/16 07:56 07/11/16 08:21 07/11/16 11:27 07/11/16 16:32 Glucose (Fingerstick) 169mg/dL (70-99) 171mg/dL (70-99) 176mg/dL (70-99) 172mg/dL (70-99) Medications Active Scripts Medications Dose Route/Sig Days Date Category Amiodarone Hcl 200 Mg Tablet 200 Mg PO BID 08/28/15 Reported Aspir 81 (Aspirin) 81 Mg Tablet.dr 81 Mg PO DAILY 08/28/15 Reported Atorvastatin Calcium 20 Mg Tablet 20 Mg PO HS 08/28/15 Reported Cardizem Cd (Diltiazem Hcl) 360 Mg Cap.er.24h 360 Mg PO DAILY 08/28/15 Reported Docusate Sodium 100 Mg Capsule 100 Mg PO BID 08/28/15 Reported Melatonin 3 Mg Tablet 9 Mg PO DAILY 08/28/15 Reported Polyethylene Glycol 3350 17 Gm Powd.pack 17 Gm PO DAILY 08/28/15 Reported Senna (Sennosides) 8.6 Mg Tablet 8.6 Mg PO DAILY 08/28/15 Reported Clonidine Hcl 0.2 Mg Tablet 0.2 Mg PO DAILY 08/28/15 Reported Micro-Guard (Miconazole Nitrate) 85 Gm Powder 85 Gm TP BID 08/28/15 Reported Humalog (Insulin Lispro) 100 Unit/1 Ml Vial 100 Unit SQ 08/28/15 Reported Buspirone Hcl 5 Mg Tablet 5 Mg PO TID 08/28/15 Reported Aranesp Vial (Darbepoetin Naif In Polysorbat) 100 Mcg/1 Ml Vial 100 Mcg SQ WEEKLY 08/28/15 Reported Nephron Fa Tablet (Fe Fumarate/Dinorah/Fa/Bcomp&C) 1 Each Tablet 1 Each PO DAILY 08/28/15 Reported Ferrous Sulfate 325 Mg Tablet 1 Tab PO DAILY 08/28/15 Reported Escitalopram Oxalate 20 Mg Tablet 20 Mg PO DAILY 08/28/15 Reported Duoneb 0.5-3(2.5) Mg/3 Ml (Albuterol/Ipratropium) 3 Ml Ampul.neb 3 Ml NEB QID PRN 08/28/15 Reported Gabapentin 600 Mg Tablet 600 Mg PO BID 08/28/15 Reported Mirtazapine 7.5 Mg Tablet 7.5 Mg PO DAILY 08/28/15 Reported Abilify (Aripiprazole) 2 Mg Tablet 2.5 Mg PO DAILY 08/28/15 Reported Labetalol Hcl 5 Mg/1 Ml Vial 10 Mg IV PRN 08/28/15 Reported Heparin Sod 5,000 Unit/ 0.5 Ml (Heparin Sodium,Porcine/Pf) 5,000 Unit/0.5 Ml Vial 5,000 Unit IJ TID 08/28/15 Reported Novolin N (Nph, Human Insulin Isophane) 100 Unit/1 Ml Vial 100 Unit SQ PRN 05/31/13 Reported Impression . 1. Acute respiratory failure, suspect sepsis. 2. Sepsis secondary to urinary tract infection. 3. Possible obstructive sleep apnea. 4. End-stage renal disease, noncompliant. 5. Type 2 diabetes. 6. Depression. 7. Hyperlipidemia. Plan . continue the same resp status is compensated 1. Continue antibiotics 2. outpatient polysomnogram, nocturnal desaturation study prior to discharge. lola the importance of diagnosis and tx discussed. 3. Continue home meds. 4. follow nephro input, new cath for HD 5. follow Gi input discussed w pt LEILANI LEONARD MD Jul 12, 2016 06:30
[2016-07-12 07:00] VITALS: BP 126/51
[2016-07-12] MEDS: ESCITALOPRAM 10 MG TABLET. PO SCH (08:42)
[2016-07-12] MEDS: ARIPiprazole 2 MG TABLET PO SCH (08:44)
[2016-07-12] MEDS: busPIRone 5 MG TABLET. PO SCH ×3 (08:45→20:29)
[2016-07-12] MEDS: cloNIDine HCL 0.2 MG TABLET PO SCH (08:47)
[2016-07-12] MEDS: DOCUSATE SODIUM 100 MG CAPSULE. PO SCH ×2 (08:47→20:35)
[2016-07-12] MEDS: ASPIRIN ENTERIC COATED 81 MG TABLET.DR. PO SCH (08:48)
[2016-07-12] MEDS: FERROUS SULFATE 325 MG TABLET. PO SCH (08:48)
[2016-07-12] MEDS: AMIODARONE HCL 200 MG TABLET. PO SCH ×2 (08:48→20:31)
[2016-07-12] MEDS: GABAPENTIN 300 MG CAPSULE. PO SCH ×2 (08:49→20:29)
[2016-07-12] MEDS: MIRTAZAPINE 7.5 MG TABLET. PO SCH (08:49)
[2016-07-12] MEDS: POLYETHYLENE GLYCOL 3350 17 GM PACKET. PO SCH (08:49)
[2016-07-12] MEDS: SENNOSIDES 8.6 MG TABLET PO SCH (08:50)
[2016-07-12] MEDS: FOLIC/VIT B COMP W-C (RENAL) TABLET. PO SCH (08:50)
[2016-07-12] MEDS: INSULIN ASPART 300 UNITS/3 ML INSULN.PEN SQ SCH ×3 (08:56→17:13)
[2016-07-12] MEDS: NYSTATIN TOPICAL POWDER 15GM BOTTLE. TP SCH ×2 (09:11→20:30)
[2016-07-12] MEDS: HEPARIN PF for SUB-Q USE 5,000 UNIT/0.5 ML VIAL. SQ SCH ×3 (09:14→20:36)
--- NOTE | 2016-07-12 10:27 | PDOC ---
PROGRESS NOTES Chief Complaint Chief Complaint cc: Diarrhea, MRSA sepsis ESRD on dialysis Encephalopathy Diabetes mellitus Obese Hyperlipidemia Hypertension KRYSTLE Infected HDC catheter. MRSA -s/p placement temp [facility] 07/09 -s/p removal [facility] 07/07 Encephalopathy ESRD Plan on Vancomycin pharmacy dosing Encephalopathic try ABG in AM HD per nephrology SSI labs reviewed, Follow blood cx d/w , History of Present Illness History of Present Illness alert, encephalopathic no fever Vitals Vitals Vital Signs Date Time Temp Pulse Resp B/P Pulse Ox O2 Delivery O2 Flow Rate FiO2 07/12/16 08:48 70 125/51 07/12/16 07:00 98.2 18 96 Nasal Cannula 2.5 98.2 Physical Exam General: Alert, Cooperative Heart: Regular rate, Normal S1, Normal S2 Lungs: Crackles, Other (No chest retractions were present) Abdomen: Soft, No tenderness Extremities: No clubbing, No cyanosis Skin: No rashes, No breakdown Labs LABS Laboratory Tests Test 07/11/16 11:27 07/11/16 16:32 Glucose (Fingerstick) 176mg/dL (70-99) 172mg/dL (70-99) Assessment and Plan Assessmemt and Plan Problems Medical Problems: (1) Anemia Status: Acute (2) End stage renal disease Status: Acute (3) Generalized weakness Status: Acute (4) Healthcare-associated pneumonia Status: Acute (5) Sepsis Status: Acute (6) Transient hypotension Status: Acute (7) Urinary tract infection Status: Acute Problems: Comment Review of Relevant I have reviewed the following items dominga (where applicable) has been applied. Labs Laboratory Tests Test 07/10/16 16:40 07/10/16 20:38 07/11/16 05:15 07/11/16 07:56 Glucose (Fingerstick) 189mg/dL (70-99) 187mg/dL (70-99) 169mg/dL (70-99) Random Vancomycin Level 14.9mcg/mL Test 07/11/16 08:21 07/11/16 11:27 07/11/16 16:32 Glucose (Fingerstick) 171mg/dL (70-99) 176mg/dL (70-99) 172mg/dL (70-99) Laboratory Tests Test 07/11/16 11:27 07/11/16 16:32 Glucose (Fingerstick) 176mg/dL (70-99) 172mg/dL (70-99) Microbiology 07/08/16 Blood Culture - Preliminary, Resulted 07/08/16 Blood Culture Result 1 (NEGRITO) - Preliminary, Resulted 07/08/16 Antimicrobic Susceptibility - Preliminary, Resulted 07/08/16 Fecal Leukocyte Stain - Final, Complete 07/06/16 Urine Culture - Final, Complete 07/06/16 Urine Culture Result 1 (NEGRITO) - Final, Complete 07/06/16 Gram Stain - Final, Complete Medications Current Medications Sodium Chloride (Iv Sodium Chloride 0.9% 500ml Bag) 500 ml @ 1,000 mls/hr 1X ONCE IV Last administered on 07/06/16 13:33; Start 07/06/16 at 12:45; Stop 01/12 at 13:14; Status DC Ondansetron HCl (Zofran) 4 mg 1X ONCE IV Last administered on 07/06/16 13:33 ; Start 07/06/16 at 12:45; Stop 07/06/16 at 12:46; Status DC Vancomycin HCl (Vanco Per Pharmacy) 1 each PRN DAILY PRN MC SEE COMMENTS Last administered on 07/11/16 16:07; Start 07/06/16 at 14:00 Piperacillin Sod/ Tazobactam Sod (Zosyn Per Pharmacy) 1 each PRN DAILY PRN MC SEE COMMENTS; Start 07/06/16 at 14:00; Stop 07/08/16 at 09:55; Status DC Levofloxacin/ Dextrose 1 each 1 each PRN DAILY PRN MC SEE COMMENTS; Start 07/06 at 14:00; Stop 07/08/16 at 09:55; Status DC Vancomycin HCl/ Sodium Chloride (Iv Sodium Chloride 0.9% 500ml Bag) 500 ml @ 250 mls/hr 1X ONCE IV Last administered on 07/06/16 15:03; Start 07/06/16 at 14:15; Stop 07/06/16 at 16:14; Status DC Ondansetron HCl (Zofran) 4 mg PRN Q8HRS PRN IV NAUSEA/VOMITING; Start 07/06/16 at 14:30; Stop 07/07/16 at 14:29; Status DC Morphine Sulfate 2 mg PRN Q2HR PRN IV PAIN; Start 07/06/16 at 14:30; Stop 07/07 at 14:29; Status DC Acetaminophen 650 mg 650 mg PRN Q4HRS PRN PO FEVER Last administered on 05:17; Start 07/06/16 at 14:30; Stop 07/07/16 at 14:29; Status DC Piperacillin Sod/ Tazobactam Sod 2.25 gm/Sodium Chloride 50 ml @ 100 mls/hr Q8HRS IV Last administered on 07/08/16 05:17; Start 07/06/16 at 15:00; Stop at 09:55; Status DC Levofloxacin/ Dextrose (LEVAQUIN 500mg PREMIX) 100 ml @ 100 mls/hr Q48H IV Last administered on 07/06/16 17:36; Start 07/06/16 at 15:00; Stop 07/08/16 at 09:55; Status DC Darbepoetin Nafi 60 mcg 60 mcg WEEKLYHS SQ Last administered on 07/06/16 19:31 ; Start 07/06/16 at 21:00 Sodium Chloride (Iv Sodium Chloride 0.9% 1000ml Bag) 1,000 ml @ 1,000 mls/hr Q1H PRN IV hypotension; Start 07/06/16 at 23:29; Stop 07/07/16 at 05:28; Status DC Sodium Chloride (Normal Saline Flush) 10 ml 1X PRN PRN IV AP catheter pack; Start 07/06/16 at 23:30; Stop 07/07/16 at 23:29; Status DC Sodium Chloride (Normal Saline Flush) 10 ml 1X PRN PRN IV CULINARY DIRECTOR catheter pack; Start 07/06/16 at 23:30; Stop 07/07/16 at 23:29; Status DC Info (PHARMACY MONITORING -- do not chart) 1 each PRN DAILY PRN MC SEE COMMENTS ; Start 07/06/16 at 23:30; Stop 07/09/16 at 21:17; Status DC Info 1 each 1 each PRN DAILY PRN MC SEE COMMENTS; Start 07/06/16 at 23:30; Stop 07/07/16 at 13:09; Status DC Vancomycin HCl/ Sodium Chloride (Iv Sodium Chloride 0.9% 250ml) 250 ml @ 250 mls/hr 1X ONCE IV Last administered on 07/07/16 06:36; Start 07/07/16 at 06: 30; Stop 07/07/16 at 07:29; Status DC Nystatin (Nystop) 1 stephan BID TP Last administered on 07/12/16 09:11; Start 02/12 at 14:00 Oxycodone HCl (Roxicodone) 5 mg PRN Q4HRS PRN PO PAIN; Start 07/07/16 at 18:00 ; Stop 07/07/16 at 18:38; Status DC Acetaminophen (Tylenol) 650 mg PRN Q6HRS PRN PO MILD PAIN / TEMP Last administered on 07/08/16 04:45; Start 07/07/16 at 18:45 Tramadol HCl (Ultram) 50 mg PRN Q6HRS PRN PO MODERATE PAIN Last administered on 07/08/16 04:45; Start 07/07/16 at 18:45 Acetaminophen/ Hydrocodone Bitart (Lortab 5/325) 1 tab PRN Q4HRS PRN PO SEVERE PAIN Last administered on 07/09/16 20:23; Start 07/08/16 at 09:30 Vancomycin HCl 1 each 1X ONCE MC Last administered on 07/09/16 05:31; Start 07/09/16 at 05:00; Stop 07/09/16 at 05:01; Status DC Amiodarone HCl (Cordarone) 200 mg BID PO Last administered on 07/12/16 08:48; Start 07/08/16 at 21:00 Aripiprazole (Abilify) 2.5 mg DAILY PO Last administered on 07/12/16 08:44; Start 07/09/16 at 09:00 Aspirin (Ecotrin) 81 mg DAILY PO Last administered on 07/12/16 08:48; Start at 15:00 Atorvastatin Calcium (Lipitor) 20 mg HS PO Last administered on 07/11/16 21:05 ; Start 07/08/16 at 21:00 Buspirone HCl (Buspar) 5 mg TID PO Last administered on 07/12/16 08:45; Start 07/08/16 at 15:00 Clonidine HCl (Catapres) 0.2 mg DAILY PO Last administered on 07/12/16 08:47; Start 07/09/16 at 09:00 Docusate Sodium (Colace) 100 mg BID PO Last administered on 07/10/16 21:01; Start 07/08/16 at 21:00 Ferrous Sulfate (Feosol) 325 mg DAILY PO Last administered on 07/12/16 08:48; Start 07/09/16 at 09:00 Heparin Sodium (Porcine) 5,000 unit TID SQ Last administered on 07/12/16 09:14 ; Start 07/08/16 at 15:00 Albuterol/ Ipratropium (Duoneb) 3 ml PRN QID PRN NEB SHORTNESS OF BREATH; Start 07/08/16 at 14:45 Labetalol HCl (Normodyne) 10 mg PRN BID PRN IVP HYPERTENSION, SEE COMMENTS; Start 07/08/16 at 15:15 Nystatin (Nystop) 1 stephan BID TP ; Start 07/08/16 at 21:00; Status Cancel Mirtazapine (Remeron) 7.5 mg DAILY PO Last administered on 07/12/16 08:49; Start 07/09/16 at 09:00 Polyethylene Glycol (miraLAX PACKET) 17 gm DAILY PO Last administered on 09:00; Start 07/09/16 at 09:00 Sennosides (Senna) 8.6 mg DAILY PO Last administered on 07/10/16 14:45; Start 07/09/16 at 09:00 Non-Formulary Medication 100 mcg WEEKLY SQ TO TREAT ANEMIA; Start 07/15/16 at 09 :00; Status UNV Diltiazem HCl (Cardizem 24hr Cd) 360 mg DAILY PO Last administered on 08:46; Start 07/09/16 at 09:00 Escitalopram Oxalate (Lexapro) 20 mg DAILY PO Last administered on 07/12/16 08 :42; Start 07/09/16 at 09:00 Vitamin B Complex/ Vitamin C (Zoe-Kiran) 1 tab DAILY PO Last administered on 08:50; Start 07/09/16 at 09:00 Gabapentin (Neurontin) 600 mg BID PO Last administered on 07/12/16 08:49; Start 07/08/16 at 21:00 Non-Formulary Medication 9 mg DAILY PO ; Start 07/09/16 at 09:00; Status UNV Insulin Aspart (Novolog) 10 units TIDAC SQ Last administered on 07/12/16 08:56 ; Start 07/08/16 at 16:30 Heparin Sodium (Porcine) (Heparin Sodium) 10,000 unit STK-MED ONCE .ROUTE ; Start 07/09/16 at 11:22; Stop 07/09/16 at 11:23; Status DC Lidocaine/Sodium Bicarbonate 20 ml 20 ml STK-MED ONCE IJ ; Start 07/09/16 at 11: 22; Stop 07/09/16 at 11:23; Status DC Heparin Sodium/ Sodium Chloride 500 ml @ As Directed STK-MED ONCE .ROUTE ; Start 07/09/16 at 11:22; Stop 07/09/16 at 11:23; Status DC Heparin Sodium/ Sodium Chloride 60 unit 1X ONCE IV Last administered on 12:21; Start 07/09/16 at 11:45; Stop 07/09/16 at 11:51; Status DC Heparin Sodium (Porcine) (Heparin Sodium) 2,500 unit 1X ONCE INT CAT Last administered on 07/09/16 12:21; Start 07/09/16 at 11:45; Stop 07/09/16 at 11:51 ; Status DC Lidocaine/Sodium Bicarbonate (Buffered Lidocaine 1%) 3 ml 1X ONCE IJ Last administered on 07/09/16 12:20; Start 07/09/16 at 11:45; Stop 07/09/16 at 11:51 ; Status DC Methylprednisolone Acetate (Depo-Medrol 40mg Vial) 40 mg 1X ONCE IM ; Start at 14:45; Stop 07/09/16 at 14:59; Status DC Bupivacaine HCl 10 ml 10 ml 1X ONCE IJ ; Start 07/09/16 at 14:45; Stop at 14:59; Status DC Sodium Chloride 1,000 ml @ 1,000 mls/hr Q1H PRN IV hypotension; Start 07/09/16 at 15:15; Stop 07/09/16 at 21:14; Status DC Albumin Human (Albuminar) 200 ml @ 200 mls/hr 1X PRN PRN IV Hypotension; Start 07/09/16 at 15:15; Stop 07/09/16 at 21:14; Status DC Acetaminophen (Tylenol) 500 mg 1X PRN PRN PO MILD PAIN / TEMP; Start 07/09/16 at 15:15; Stop 07/10/16 at 15:14; Status DC Diphenhydramine HCl (Benadryl) 25 mg 1X PRN PRN IV ITCHING; Start 07/09/16 at 15:15; Stop 07/10/16 at 15:14; Status DC Diphenhydramine HCl (Benadryl) 25 mg 1X PRN PRN IV ITCHING; Start 07/09/16 at 15:15; Stop 07/10/16 at 15:14; Status DC Labetalol HCl (Normodyne) 10 mg PRN Q1HR PRN IVP SBP > 180; Start 07/09/16 at 15:15; Stop 07/10/16 at 15:14; Status DC Clonidine HCl (Catapres) 0.1 mg 1X PRN PRN PO SBP > 180; Start 07/09/16 at 15: 15; Stop 07/10/16 at 15:14; Status DC Info (PHARMACY MONITORING -- do not chart) 1 each PRN DAILY PRN MC SEE COMMENTS ; Start 07/09/16 at 15:15; Status Cancel Vancomycin HCl 1 each 1 each 1X ONCE MC ; Start 07/11/16 at 06:00; Stop at 06:01; Status DC Sodium Chloride (Iv Sodium Chloride 0.9% 1000ml Bag) 1,000 ml @ 1,000 mls/hr Q1H PRN IV hypotension; Start 07/10/16 at 10:45; Stop 07/10/16 at 16:44; Status DC Sodium Chloride (Normal Saline Flush) 10 ml 1X PRN PRN IV AP catheter pack; Start 07/10/16 at 10:45; Stop 07/11/16 at 10:44; Status DC Sodium Chloride (Normal Saline Flush) 10 ml 1X PRN PRN IV CULINARY DIRECTOR catheter pack; Start 07/10/16 at 10:45; Stop 07/11/16 at 10:44; Status DC Info (PHARMACY MONITORING -- do not chart) 1 each PRN DAILY PRN MC SEE COMMENTS ; Start 07/10/16 at 10:45; Stop 07/10/16 at 14:25; Status DC Info 1 each 1 each PRN DAILY PRN MC SEE COMMENTS; Start 07/10/16 at 10:45 Lactated Ringer's 1,000 ml @ 50 mls/hr Q20H IV ; Start 07/13/16 at 07:00; Stop 07/13/16 at 18:59 Vancomycin HCl/ Sodium Chloride (Iv Sodium Chloride 0.9% 100ml) 100 ml @ 100 mls/hr 1X ONCE IV Last administered on 07/11/16t 18:00; Start 07/11/16 at 18: 00; Stop 07/11/16 at 18:59; Status DC Active Scripts Active Reported Amiodarone Hcl 200 Mg Tablet 200 Mg PO BID Aspir 81 (Aspirin) 81 Mg Tablet.dr 81 Mg PO DAILY Atorvastatin Calcium 20 Mg Tablet 20 Mg PO HS Cardizem Cd (Diltiazem Hcl) 360 Mg Cap.er.24h 360 Mg PO DAILY Docusate Sodium 100 Mg Capsule 100 Mg PO BID Melatonin 3 Mg Tablet 9 Mg PO DAILY Polyethylene Glycol 3350 17 Gm Powd.pack 17 Gm PO DAILY Senna (Sennosides) 8.6 Mg Tablet 8.6 Mg PO DAILY Clonidine Hcl 0.2 Mg Tablet 0.2 Mg PO DAILY Micro-Guard (Miconazole Nitrate) 85 Gm Powder 85 Gm TP BID Humalog (Insulin Lispro) 100 Unit/1 Ml Vial 100 Unit SQ Buspirone Hcl 5 Mg Tablet 5 Mg PO TID Aranesp Vial (Darbepoetin Naif In Polysorbat) 100 Mcg/1 Ml Vial 100 Mcg SQ WEEKLY Nephron Fa Tablet (Fe Fumarate/Dinorah/Fa/Bcomp&C) 1 Each Tablet 1 Each PO DAILY Ferrous Sulfate 325 Mg Tablet 1 Tab PO DAILY Escitalopram Oxalate 20 Mg Tablet 20 Mg PO DAILY Duoneb 0.5-3(2.5) Mg/3 Ml (Albuterol/Ipratropium) 3 Ml Ampul.neb 3 Ml NEB QID PRN Gabapentin 600 Mg Tablet 600 Mg PO BID Mirtazapine 7.5 Mg Tablet 7.5 Mg PO DAILY Abilify (Aripiprazole) 2 Mg Tablet 2.5 Mg PO DAILY Labetalol Hcl 5 Mg/1 Ml Vial 10 Mg IV PRN Heparin Sod 5,000 Unit/ 0.5 Ml (Heparin Sodium,Porcine/Pf) 5,000 Unit/0.5 Ml Vial 5,000 Unit IJ TID Novolin N (Nph, Human Insulin Isophane) 100 Unit/1 Ml Vial 100 Unit SQ PRN Vitals/I & O Vital Sign - Last 24 Hours 07/11/16 07/11/16 07/11/16 07/11/16 11:00 15:00 17:55 17:56 Temp 98.4 98.3 98.4 98.3 Pulse 68 79 68 68 Resp 20 19 B/P 158/64 141/71 158/64 158/64 Pulse Ox 97 95 O2 Delivery Nasal Cannula Nasal Cannula O2 Flow Rate 2.5 2.5 07/11/16 07/11/16 07/11/16 07/11/16 17:56 19:00 20:00 21:05 Temp 97.8 97.8 Pulse 68 64 64 Resp 20 B/P 158/64 156/60 156/60 Pulse Ox 97 O2 Delivery Nasal Cannula Nasal Cannula O2 Flow Rate 2.5 07/11/16 07/12/16 07/12/16 07/12/16 23:00 07:00 08:46 08:47 Temp 97.8 98.2 97.8 98.2 Pulse 63 70 70 70 Resp 20 18 B/P 146/63 126/51 126/51 126/51 Pulse Ox 96 96 O2 Delivery Nasal Cannula Nasal Cannula O2 Flow Rate 2.5 07/12/16 08:48 Pulse 70 B/P 125/51 Intake and Output 07/11/16 07/11/16 07/12/16 15:00 23:00 07:00 Intake Total 0 ml 120 ml 100 ml Balance 0 ml 120 ml 100 ml Nutrition Consultation Dietary Evaluation: Recommendations by RD: Increase Calorie Intake, Protein supplementation Comments: Changed boost [facility] to [facility] renal TID - 475kcal and 21.6g protein Expected Outcomes/Goals: diet advancement: met new goal: to meet >75% est nutr needs Malnutrition Findings: Food and Nutrition Intake (Mod: <75% est energy req 7days Weight Status: Morbidly Obese Fluid Accumulation (Non-Severe: Mild depletion HARPREET DIGGS MD Jul 12, 2016 10:27
[2016-07-12 11:00] VITALS: BP 124/54
[2016-07-12 15:00] VITALS: BP 107/51
[2016-07-12] MEDS: VANCOMYCIN PER PHARMACY MC PRN (15:16)
[2016-07-12 19:00] VITALS: BP 140/57
[2016-07-12] MEDS: ATORVASTATIN CALCIUM 20 MG TABLET PO SCH (20:30)
[2016-07-12 23:00] VITALS: BP 140/58
[2016-07-13 07:00] VITALS: BP 139/58
[2016-07-13] MEDS ORDERED: IV RINGERS,LACTATED 1000ML 1,000 ML IV SCH (07:00)
[2016-07-13] MEDS: INSULIN ASPART 300 UNITS/3 ML INSULN.PEN SQ SCH ×3 (07:30→18:53)
[2016-07-13] MEDS ORDERED: IV NORMAL SALINE 1000ML BAG 1,000 ML IV PRN ×2 (08:26)
[2016-07-13] MEDS ORDERED: MIDODRINE 5 MG TABLET PO ONE (08:30)
[2016-07-13] MEDS ORDERED: ALBUMIN HUMAN 25% 200 ML IV PRN (08:30)
[2016-07-13] MEDS ORDERED: cloNIDine HCL 0.1 MG TABLET PO PRN (08:30)
[2016-07-13] MEDS ORDERED: LABETALOL 20 MG/4 ML DISP.SYRIN. IVP PRN (08:30)
[2016-07-13] MEDS ORDERED: diphenhydrAMINE 50 MG/ML VIAL IV PRN ×2 (08:30)
[2016-07-13] MEDS ORDERED: DIALYSIS PATIENT. MC PRN (08:30)
[2016-07-13] MEDS ORDERED: ACETAMINOPHEN 500 MG TABLET PO PRN (08:30)
[2016-07-13] MEDS: DOCUSATE SODIUM 100 MG CAPSULE. PO SCH ×2 (09:00→22:41)
[2016-07-13] MEDS: POLYETHYLENE GLYCOL 3350 17 GM PACKET. PO SCH (09:00)
[2016-07-13] MEDS: SENNOSIDES 8.6 MG TABLET PO SCH (09:00)
[2016-07-13] MEDS: busPIRone 5 MG TABLET. PO SCH ×3 (09:00→22:43)
[2016-07-13] MEDS: HEPARIN PF for SUB-Q USE 5,000 UNIT/0.5 ML VIAL. SQ SCH ×3 (09:00→22:51)
[2016-07-13] MEDS: NYSTATIN TOPICAL POWDER 15GM BOTTLE. TP SCH ×2 (09:00→21:00)
--- NOTE | 2016-07-13 09:07 | PDOC ---
PROGRESS NOTES Subjective Subjective She is sleepy this AM Objective Objective Vital Signs Date Time Temp Pulse Resp B/P Pulse Ox O2 Delivery O2 Flow Rate FiO2 07/13/16 07:00 98.2 64 12 139/58 97 Nasal Cannula 2.0 98.2 Intake and Output 07/13/16 06:59 Intake Total 550 ml Balance 550 ml Intake Oral 550 ml # Voids 4 # Bowel Movements 2 Physical Exam Physical Exam She did not get up with physical therapy this weekend and she required maximal help with mobility last Wednesday. Assessment Assessment Problems Medical Problems: (1) Anemia Status: Acute (2) End stage renal disease Status: Acute (3) Generalized weakness Status: Acute (4) Healthcare-associated pneumonia Status: Acute (5) Sepsis Status: Acute (6) Transient hypotension Status: Acute (7) Urinary tract infection Status: Acute Plan Plan of Care To get her up as tolerated. Comment Review of Relevant I have reviewed the following items dominga (where applicable) has been applied. Labs Laboratory Tests Test 07/11/16 11:27 07/11/16 16:32 07/12/16 07:47 07/12/16 11:21 Glucose (Fingerstick) 176mg/dL (70-99) 172mg/dL (70-99) 284mg/dL (70-99) 290mg/dL (70-99) Test 07/12/16 17:11 Glucose (Fingerstick) 252mg/dL (70-99) Laboratory Tests Test 07/12/16 11:21 07/12/16 17:11 Glucose (Fingerstick) 290mg/dL (70-99) 252mg/dL (70-99) Microbiology 07/11/16 Blood Culture - Preliminary, Resulted NO GROWTH AFTER 1 DAY 07/08/16 Fecal Leukocyte Stain - Final, Complete 07/06/16 Urine Culture - Final, Complete 07/06/16 Urine Culture Result 1 (NEGRITO) - Final, Complete 07/06/16 Gram Stain - Final, Complete Medications Current Medications Sodium Chloride (Iv Sodium Chloride 0.9% 500ml Bag) 500 ml @ 1,000 mls/hr 1X ONCE IV Last administered on 07/06/16 13:33; Start 07/06/16 at 12:45; Stop 01/12 at 13:14; Status DC Ondansetron HCl (Zofran) 4 mg 1X ONCE IV Last administered on 07/06/16 13:33 ; Start 07/06/16 at 12:45; Stop 07/06/16 at 12:46; Status DC Vancomycin HCl (Vanco Per Pharmacy) 1 each PRN DAILY PRN MC SEE COMMENTS Last administered on 07/12/16 15:16; Start 07/06/16 at 14:00 Piperacillin Sod/ Tazobactam Sod (Zosyn Per Pharmacy) 1 each PRN DAILY PRN MC SEE COMMENTS; Start 07/06/16 at 14:00; Stop 07/08/16 at 09:55; Status DC Levofloxacin/ Dextrose 1 each 1 each PRN DAILY PRN MC SEE COMMENTS; Start 07/06 at 14:00; Stop 07/08/16 at 09:55; Status DC Vancomycin HCl/ Sodium Chloride (Iv Sodium Chloride 0.9% 500ml Bag) 500 ml @ 250 mls/hr 1X ONCE IV Last administered on 07/06/16 15:03; Start 07/06/16 at 14:15; Stop 07/06/16 at 16:14; Status DC Ondansetron HCl (Zofran) 4 mg PRN Q8HRS PRN IV NAUSEA/VOMITING; Start 07/06/16 at 14:30; Stop 07/07/16 at 14:29; Status DC Morphine Sulfate 2 mg PRN Q2HR PRN IV PAIN; Start 07/06/16 at 14:30; Stop 07/07 at 14:29; Status DC Acetaminophen 650 mg 650 mg PRN Q4HRS PRN PO FEVER Last administered on 05:17; Start 07/06/16 at 14:30; Stop 07/07/16 at 14:29; Status DC Piperacillin Sod/ Tazobactam Sod 2.25 gm/Sodium Chloride 50 ml @ 100 mls/hr Q8HRS IV Last administered on 07/08/16 05:17; Start 07/06/16 at 15:00; Stop at 09:55; Status DC Levofloxacin/ Dextrose (LEVAQUIN 500mg PREMIX) 100 ml @ 100 mls/hr Q48H IV Last administered on 07/06/16 17:36; Start 07/06/16 at 15:00; Stop 07/08/16 at 09:55; Status DC Darbepoetin Naif 60 mcg 60 mcg WEEKLYHS SQ Last administered on 07/06/16 19:31 ; Start 07/06/16 at 21:00 Sodium Chloride (Iv Sodium Chloride 0.9% 1000ml Bag) 1,000 ml @ 1,000 mls/hr Q1H PRN IV hypotension; Start 07/06/16 at 23:29; Stop 07/07/16 at 05:28; Status DC Sodium Chloride (Normal Saline Flush) 10 ml 1X PRN PRN IV AP catheter pack; Start 07/06/16 at 23:30; Stop 07/07/16 at 23:29; Status DC Sodium Chloride (Normal Saline Flush) 10 ml 1X PRN PRN IV [employer] catheter pack; Start 07/06/16 at 23:30; Stop 07/07/16 at 23:29; Status DC Info (PHARMACY MONITORING -- do not chart) 1 each PRN DAILY PRN MC SEE COMMENTS ; Start 07/06/16 at 23:30; Stop 07/09/16 at 21:17; Status DC Info 1 each 1 each PRN DAILY PRN MC SEE COMMENTS; Start 07/06/16 at 23:30; Stop 07/07/16 at 13:09; Status DC Vancomycin HCl/ Sodium Chloride (Iv Sodium Chloride 0.9% 250ml) 250 ml @ 250 mls/hr 1X ONCE IV Last administered on 07/07/16 06:36; Start 07/07/16 at 06: 30; Stop 07/07/16 at 07:29; Status DC Nystatin (Nystop) 1 stephan BID TP Last administered on 07/12/16 20:30; Start 02/12 at 14:00 Oxycodone HCl (Roxicodone) 5 mg PRN Q4HRS PRN PO PAIN; Start 07/07/16 at 18:00 ; Stop 07/07/16 at 18:38; Status DC Acetaminophen (Tylenol) 650 mg PRN Q6HRS PRN PO MILD PAIN / TEMP Last administered on 07/08/16 04:45; Start 07/07/16 at 18:45 Tramadol HCl (Ultram) 50 mg PRN Q6HRS PRN PO MODERATE PAIN Last administered on 07/08/16 04:45; Start 07/07/16 at 18:45 Acetaminophen/ Hydrocodone Bitart (Lortab 5/325) 1 tab PRN Q4HRS PRN PO SEVERE PAIN Last administered on 07/09/16 20:23; Start 07/08/16 at 09:30 Vancomycin HCl 1 each 1X ONCE MC Last administered on 07/09/16 05:31; Start 07/09/16 at 05:00; Stop 07/09/16 at 05:01; Status DC Amiodarone HCl (Cordarone) 200 mg BID PO Last administered on 07/12/16 20:31; Start 07/08/16 at 21:00 Aripiprazole (Abilify) 2.5 mg DAILY PO Last administered on 07/12/16 08:44; Start 07/09/16 at 09:00 Aspirin (Ecotrin) 81 mg DAILY PO Last administered on 07/12/16 08:48; Start at 15:00 Atorvastatin Calcium (Lipitor) 20 mg HS PO Last administered on 07/12/16 20:30 ; Start 07/08/16 at 21:00 Buspirone HCl (Buspar) 5 mg TID PO Last administered on 07/12/16 20:29; Start 07/08/16 at 15:00 Clonidine HCl (Catapres) 0.2 mg DAILY PO Last administered on 07/12/16 08:47; Start 07/09/16 at 09:00 Docusate Sodium (Colace) 100 mg BID PO Last administered on 07/10/16 21:01; Start 07/08/16 at 21:00 Ferrous Sulfate (Feosol) 325 mg DAILY PO Last administered on 07/12/16 08:48; Start 07/09/16 at 09:00 Heparin Sodium (Porcine) 5,000 unit TID SQ Last administered on 07/12/16 20:36 ; Start 07/08/16 at 15:00 Albuterol/ Ipratropium (Duoneb) 3 ml PRN QID PRN NEB SHORTNESS OF BREATH; Start 07/08/16 at 14:45 Labetalol HCl (Normodyne) 10 mg PRN BID PRN IVP HYPERTENSION, SEE COMMENTS; Start 07/08/16 at 15:15 Nystatin (Nystop) 1 stephan BID TP ; Start 07/08/16 at 21:00; Status Cancel Mirtazapine (Remeron) 7.5 mg DAILY PO Last administered on 07/12/16 08:49; Start 07/09/16 at 09:00 Polyethylene Glycol (miraLAX PACKET) 17 gm DAILY PO Last administered on 09:00; Start 07/09/16 at 09:00 Sennosides (Senna) 8.6 mg DAILY PO Last administered on 07/10/16 14:45; Start 07/09/16 at 09:00 Non-Formulary Medication 100 mcg WEEKLY SQ TO TREAT ANEMIA; Start 07/15/16 at 09 :00; Status UNV Diltiazem HCl (Cardizem 24hr Cd) 360 mg DAILY PO Last administered on 08:46; Start 07/09/16 at 09:00 Escitalopram Oxalate (Lexapro) 20 mg DAILY PO Last administered on 07/12/16 08 :42; Start 07/09/16 at 09:00 Vitamin B Complex/ Vitamin C (Zoe-Kiran) 1 tab DAILY PO Last administered on 08:50; Start 07/09/16 at 09:00 Gabapentin (Neurontin) 600 mg BID PO Last administered on 07/12/16 20:29; Start 07/08/16 at 21:00 Non-Formulary Medication 9 mg DAILY PO ; Start 07/09/16 at 09:00; Status UNV Insulin Aspart (Novolog) 10 units TIDAC SQ Last administered on 07/12/16 12:33 ; Start 07/08/16 at 16:30 Heparin Sodium (Porcine) (Heparin Sodium) 10,000 unit STK-MED ONCE .ROUTE ; Start 07/09/16 at 11:22; Stop 07/09/16 at 11:23; Status DC Lidocaine/Sodium Bicarbonate 20 ml 20 ml STK-MED ONCE IJ ; Start 07/09/16 at 11: 22; Stop 07/09/16 at 11:23; Status DC Heparin Sodium/ Sodium Chloride 500 ml @ As Directed STK-MED ONCE .ROUTE ; Start 07/09/16 at 11:22; Stop 07/09/16 at 11:23; Status DC Heparin Sodium/ Sodium Chloride 60 unit 1X ONCE IV Last administered on 12:21; Start 07/09/16 at 11:45; Stop 07/09/16 at 11:51; Status DC Heparin Sodium (Porcine) (Heparin Sodium) 2,500 unit 1X ONCE INT CAT Last administered on 07/09/16 12:21; Start 07/09/16 at 11:45; Stop 07/09/16 at 11:51 ; Status DC Lidocaine/Sodium Bicarbonate (Buffered Lidocaine 1%) 3 ml 1X ONCE IJ Last administered on 07/09/16 12:20; Start 07/09/16 at 11:45; Stop 07/09/16 at 11:51 ; Status DC Methylprednisolone Acetate (Depo-Medrol 40mg Vial) 40 mg 1X ONCE IM ; Start at 14:45; Stop 07/09/16 at 14:59; Status DC Bupivacaine HCl 10 ml 10 ml 1X ONCE IJ ; Start 07/09/16 at 14:45; Stop at 14:59; Status DC Sodium Chloride 1,000 ml @ 1,000 mls/hr Q1H PRN IV hypotension; Start 07/09/16 at 15:15; Stop 07/09/16 at 21:14; Status DC Albumin Human (Albuminar) 200 ml @ 200 mls/hr 1X PRN PRN IV Hypotension; Start 07/09/16 at 15:15; Stop 07/09/16 at 21:14; Status DC Acetaminophen (Tylenol) 500 mg 1X PRN PRN PO MILD PAIN / TEMP; Start 07/09/16 at 15:15; Stop 07/10/16 at 15:14; Status DC Diphenhydramine HCl (Benadryl) 25 mg 1X PRN PRN IV ITCHING; Start 07/09/16 at 15:15; Stop 07/10/16 at 15:14; Status DC Diphenhydramine HCl (Benadryl) 25 mg 1X PRN PRN IV ITCHING; Start 07/09/16 at 15:15; Stop 07/10/16 at 15:14; Status DC Labetalol HCl (Normodyne) 10 mg PRN Q1HR PRN IVP SBP > 180; Start 07/09/16 at 15:15; Stop 07/10/16 at 15:14; Status DC Clonidine HCl (Catapres) 0.1 mg 1X PRN PRN PO SBP > 180; Start 07/09/16 at 15: 15; Stop 07/10/16 at 15:14; Status DC Info (PHARMACY MONITORING -- do not chart) 1 each PRN DAILY PRN MC SEE COMMENTS ; Start 07/09/16 at 15:15; Status Cancel Vancomycin HCl 1 each 1 each 1X ONCE MC ; Start 07/11/16 at 06:00; Stop at 06:01; Status DC Sodium Chloride (Iv Sodium Chloride 0.9% 1000ml Bag) 1,000 ml @ 1,000 mls/hr Q1H PRN IV hypotension; Start 07/10/16 at 10:45; Stop 07/10/16 at 16:44; Status DC Sodium Chloride (Normal Saline Flush) 10 ml 1X PRN PRN IV AP catheter pack; Start 07/10/16 at 10:45; Stop 07/11/16 at 10:44; Status DC Sodium Chloride (Normal Saline Flush) 10 ml 1X PRN PRN IV [employer] catheter pack; Start 07/10/16 at 10:45; Stop 07/11/16 at 10:44; Status DC Info (PHARMACY MONITORING -- do not chart) 1 each PRN DAILY PRN MC SEE COMMENTS ; Start 07/10/16 at 10:45; Stop 07/10/16 at 14:25; Status DC Info 1 each 1 each PRN DAILY PRN MC SEE COMMENTS; Start 07/10/16 at 10:45; Status Cancel Lactated Ringer's 1,000 ml @ 50 mls/hr Q20H IV ; Start 07/13/16 at 07:00; Stop 07/13/16 at 18:59 Vancomycin HCl 500 mg/Sodium Chloride 100 ml @ 100 mls/hr 1X ONCE IV Last administered on 07/11/16t 18:00; Start 07/11/16 at 18:00; Stop 07/11/16 at 18:59 ; Status DC Sodium Chloride 1,000 ml @ 1,000 mls/hr Q1H PRN IV hypotension; Start 07/13/16 at 08:26; Stop 07/13/16 at 14:25 Albumin Human (Albuminar) 200 ml @ 200 mls/hr 1X PRN PRN IV Hypotension; Start 07/13/16 at 08:30; Stop 07/13/16 at 14:29 Midodrine (Proamatine) 5 mg 1X ONCE PO ; Start 07/13/16 at 08:30; Stop at 08:35; Status DC Acetaminophen (Tylenol) 500 mg 1X PRN PRN PO MILD PAIN / TEMP; Start 07/13/16 at 08:30; Stop 07/14/16 at 08:29 Diphenhydramine HCl (Benadryl) 25 mg 1X PRN PRN IV ITCHING; Start 07/13/16 at 08:30; Stop 07/14/16 at 08:29 Diphenhydramine HCl (Benadryl) 25 mg 1X PRN PRN IV ITCHING; Start 07/13/16 at 08:30; Stop 07/14/16 at 08:29 Labetalol HCl (Normodyne) 10 mg PRN Q1HR PRN IVP SBP > 180; Start 07/13/16 at 08:30; Stop 07/14/16 at 08:29 Clonidine HCl 0.1 mg 0.1 mg 1X PRN PRN PO SBP > 180; Start 07/13/16 at 08:30; Stop 07/14/16 at 08:29 Sodium Chloride (Iv Sodium Chloride 0.9% 1000ml Bag) 1,000 ml @ 400 mls/hr Q2H30M PRN IV PATENCY; Start 07/13/16 at 08:26; Stop 07/13/16 at 20:25 Info (PHARMACY MONITORING -- do not chart) 1 each PRN DAILY PRN MC SEE COMMENTS ; Start 07/13/16 at 08:30 Active Scripts Active Reported Amiodarone Hcl 200 Mg Tablet 200 Mg PO BID Aspir 81 (Aspirin) 81 Mg Tablet.dr 81 Mg PO DAILY Atorvastatin Calcium 20 Mg Tablet 20 Mg PO HS Cardizem Cd (Diltiazem Hcl) 360 Mg Cap.er.24h 360 Mg PO DAILY Docusate Sodium 100 Mg Capsule 100 Mg PO BID Melatonin 3 Mg Tablet 9 Mg PO DAILY Polyethylene Glycol 3350 17 Gm Powd.pack 17 Gm PO DAILY Senna (Sennosides) 8.6 Mg Tablet 8.6 Mg PO DAILY Clonidine Hcl 0.2 Mg Tablet 0.2 Mg PO DAILY Micro-Guard (Miconazole Nitrate) 85 Gm Powder 85 Gm TP BID Humalog (Insulin Lispro) 100 Unit/1 Ml Vial 100 Unit SQ Buspirone Hcl 5 Mg Tablet 5 Mg PO TID Aranesp Vial (Darbepoetin Naif In Polysorbat) 100 Mcg/1 Ml Vial 100 Mcg SQ WEEKLY Nephron Fa Tablet (Fe Fumarate/Dinorah/Fa/Bcomp&C) 1 Each Tablet 1 Each PO DAILY Ferrous Sulfate 325 Mg Tablet 1 Tab PO DAILY Escitalopram Oxalate 20 Mg Tablet 20 Mg PO DAILY Duoneb 0.5-3(2.5) Mg/3 Ml (Albuterol/Ipratropium) 3 Ml Ampul.neb 3 Ml NEB QID PRN Gabapentin 600 Mg Tablet 600 Mg PO BID Mirtazapine 7.5 Mg Tablet 7.5 Mg PO DAILY Abilify (Aripiprazole) 2 Mg Tablet 2.5 Mg PO DAILY Labetalol Hcl 5 Mg/1 Ml Vial 10 Mg IV PRN Heparin Sod 5,000 Unit/ 0.5 Ml (Heparin Sodium,Porcine/Pf) 5,000 Unit/0.5 Ml Vial 5,000 Unit IJ TID Novolin N (Nph, Human Insulin Isophane) 100 Unit/1 Ml Vial 100 Unit SQ PRN Vitals/I & O Vital Sign - Last 24 Hours 07/12/16 07/12/16 07/12/16 07/12/16 11:00 15:00 19:00 20:00 Temp 98.6 99.0 98.5 98.6 99.0 98.5 Pulse 68 59 70 Resp 18 20 20 B/P 124/54 107/51 140/57 Pulse Ox 95 91 96 O2 Delivery Nasal Cannula Nasal Cannula Nasal Cannula Nasal Cannula O2 Flow Rate 2.5 2.5 2.5 07/12/16 07/12/16 07/13/16 20:31 23:00 07:00 Temp 98.3 98.2 98.3 98.2 Pulse 62 66 64 Resp 20 12 B/P 140/57 140/58 139/58 Pulse Ox 99 97 O2 Delivery Nasal Cannula Nasal Cannula O2 Flow Rate 2.0 Intake and Output 07/12/16 07/12/16 07/13/16 14:59 22:59 06:59 Intake Total 300 ml 250 ml Balance 300 ml 250 ml Nutrition Consultation Dietary Evaluation: Recommendations by RD: Increase Calorie Intake, Protein supplementation Comments: Changed boost breeze to Novasource renal TID - 475kcal and 21.6g protein Expected Outcomes/Goals: diet advancement: met new goal: to meet >75% est nutr needs Malnutrition Findings: Food and Nutrition Intake (Mod: <75% est energy req 7days Weight Status: Morbidly Obese Fluid Accumulation (Non-Severe: Mild depletion SHAZIA COLEMAN MD Jul 13, 2016 09:07
--- NOTE | 2016-07-13 09:20 | PDOC ---
Infectious Disease Note Subjective Subjective Sleeping soundly. Responds to questions but limited ROS ROS GEN: Denies fevers, chills, sweats HEENT: sore throat CV: Denies chest pain RESP: Denies shortness of air, cough GI: Denies n/v/d MSK: Denies weakness, joint pain/swelling Vital Sign Vital Signs Vital Signs Date Time Temp Pulse Resp B/P Pulse Ox O2 Delivery O2 Flow Rate FiO2 07/13/16 07:00 98.2 64 12 139/58 97 Nasal Cannula 2.0 98.2 Physical Exam PHYSICAL EXAM GENERAL: NAD. answered some questions OC/OP- dry but clear LUNGS: Clear HEART: S1S2, no gallop, no murmur appreciated ABD: Obese, soft, No grimace to palpation EXT: No edema, no cyanosis. No peripheral stigmata SKIN: No rash IV: ok HDC. clean Labs Lab Laboratory Tests Test 07/12/16 11:21 07/12/16 17:11 Glucose (Fingerstick) 290mg/dL (70-99) 252mg/dL (70-99) Objective Assessment MRSA Sepsis. POA - no peripheral stigmata. $/15 neg so far -Positive BC 07/06, 07/08 Infected HDC catheter. MRSA -s/p placement temp LI HDC 07/09 -s/p removal RIJ HDC 07/07 Encephalopathy ESRD Obesity Steroid injection, 07/09 Plan Plan of Care Cont vanc CBC today Await TO F/u repeat BC EDITH MAI MD Jul 13, 2016 09:20
--- NOTE | 2016-07-13 09:46 | PDOC ---
Dialysis Progress Note Dialysis Note Dialysis Note Seen on Hemodialysis, tolerating treatment Okay Vitals on Hemodialysis: 132/62 66 afeb General Appearance: Awake: Alert Oriented x 3 Neck: No JVD or JVP Chest: CTA Adama Heart: S1 S2 Abdomen - Soft NTND Extremities - + Edema ESRD : Dialysis as below F 180 NR 3.5 Hrs 3 K 2.5 Ca 140 Na 40 HC03 Qb 350 + Qd 500+ Heparin 0 Units Uf 2-3 Kgs or to dry weight as tolerated May give 25-50 gms of 25% Albumin if needed to maintain Hemodynamic stability Treatment plan reviewed and discussed with casting machine set up operator Vitals Vital Signs Vital Signs Date Time Temp Pulse Resp B/P Pulse Ox O2 Delivery O2 Flow Rate FiO2 07/13/16 07:00 98.2 64 12 139/58 97 Nasal Cannula 2.0 98.2 Labs Last Labs Laboratory Tests Test 07/11/16 11:27 07/11/16 16:32 07/12/16 07:47 07/12/16 11:21 Glucose (Fingerstick) 176mg/dL (70-99) 172mg/dL (70-99) 284mg/dL (70-99) 290mg/dL (70-99) Test 07/12/16 17:11 Glucose (Fingerstick) 252mg/dL (70-99) Laboratory Tests Test 07/12/16 11:21 07/12/16 17:11 Glucose (Fingerstick) 290mg/dL (70-99) 252mg/dL (70-99) Assessment Assessment Problems Medical Problems: (1) Anemia Status: Acute (2) End stage renal disease Status: Acute (3) Generalized weakness Status: Acute (4) Healthcare-associated pneumonia Status: Acute (5) Sepsis Status: Acute (6) Transient hypotension Status: Acute (7) Urinary tract infection Status: Acute Problems: Plan Plan of Care Problems Medical Problems: (1) Anemia Status: Acute (2) End stage renal disease Status: Acute (3) Generalized weakness Status: Acute (4) Healthcare-associated pneumonia Status: Acute (5) Sepsis Status: Acute (6) Transient hypotension Status: Acute (7) Urinary tract infection Status: Acute MESHA SIEGEL MD Jul 13, 2016 09:46
[2016-07-13 11:09] LABS: BASO # 0.1 x10^3/uL (0.0-0.2); BASO % 1 % (0-3); EOS % 2 % (0-3); HEMOGLOBIN 10.7 g/dL (12.0-15.5); LYMPH # 0.5 x10^3/uL (1.0-4.8); LYMPH % 8 % (24-48); MEAN CORPUSCULAR HEMOGLOBIN 27 pg (25-35); MEAN CORPUSCULAR HGB CONC 33 g/dL (31-37); MEAN CORPUSCULAR VOLUME 82 fL (79-100); MONO % 5 % (0-9); NEUT % 85 % (31-73); PLATELET COUNT 234 x10^3/uL (140-400); RED BLOOD COUNT 4.03 x10^6/uL (3.50-5.40); WHITE BLOOD COUNT 6.9 x10^3/uL (4.0-11.0)
[2016-07-13] MEDS ORDERED: IV NORMAL SALINE 1000ML BAG 1,000 ML IV SCH (12:15)
[2016-07-13] MEDS ORDERED: LIDOCAINE 1% PF 5 ML VIAL. ONE (12:27)
[2016-07-13] MEDS ORDERED: PROPOFOL 40 ML IV ONE (12:27)
[2016-07-13] MEDS ORDERED: LIDOCAINE 2% VISCOUS 15 ML SOLUTION. ONE (12:28)
[2016-07-13] MEDS ORDERED: BENZOCAINE ONE 20% MUCOSAL SPRAY. (12:28)
[2016-07-13] MEDS ORDERED: LIDOCAINE 2% TOPICAL JELLY 30GM TUBE. TP ONE (12:28)
[2016-07-13] MEDS: VANCOMYCIN PER PHARMACY MC PRN (13:51)
--- NOTE | 2016-07-13 14:20 | PDOC ---
G I PROGRESS NOTE Subjective No GI complaints. Dislikes food here. Physical Exam Lungs clear. RRR Abdomen soft, not distended nor tender. Review of Relevant I have reviewed the following items dominga (where applicable) has been applied. Labs Laboratory Tests Test 07/11/16 16:32 07/12/16 07:47 07/12/16 11:21 07/12/16 17:11 Glucose (Fingerstick) 172mg/dL (70-99) 284mg/dL (70-99) 290mg/dL (70-99) 252mg/dL (70-99) Test 07/13/16 10:46 White Blood Count 6.9x10^3/uL (4.0-11.0) Red Blood Count 4.03x10^6/uL (3.50-5.40) Hemoglobin 10.7g/dL (12.0-15.5) Hematocrit 33.0% (36.0-47.0) Mean Corpuscular Volume 82fL (79-100) Mean Corpuscular Hemoglobin 27pg (25-35) Mean Corpuscular Hemoglobin Concent 33g/dL (31-37) Red Cell Distribution Width 16.0% (11.5-14.5) Platelet Count 234x10^3/uL (140-400) Neutrophils (%) (Auto) 85% (31-73) Lymphocytes (%) (Auto) 8% (24-48) Monocytes (%) (Auto) 5% (0-9) Eosinophils (%) (Auto) 2% (0-3) Basophils (%) (Auto) 1% (0-3) Neutrophils # (Auto) 5.8x10^3uL (1.8-7.7) Lymphocytes # (Auto) 0.5x10^3/uL (1.0-4.8) Monocytes # (Auto) 0.3x10^3/uL (0.0-1.1) Eosinophils # (Auto) 0.1x10^3/uL (0.0-0.7) Basophils # (Auto) 0.1x10^3/uL (0.0-0.2) Laboratory Tests Test 07/12/16 17:11 07/13/16 10:46 Glucose (Fingerstick) 252mg/dL (70-99) White Blood Count 6.9x10^3/uL (4.0-11.0) Red Blood Count 4.03x10^6/uL (3.50-5.40) Hemoglobin 10.7g/dL (12.0-15.5) Hematocrit 33.0% (36.0-47.0) Mean Corpuscular Volume 82fL (79-100) Mean Corpuscular Hemoglobin 27pg (25-35) Mean Corpuscular Hemoglobin Concent 33g/dL (31-37) Red Cell Distribution Width 16.0% (11.5-14.5) Platelet Count 234x10^3/uL (140-400) Neutrophils (%) (Auto) 85% (31-73) Lymphocytes (%) (Auto) 8% (24-48) Monocytes (%) (Auto) 5% (0-9) Eosinophils (%) (Auto) 2% (0-3) Basophils (%) (Auto) 1% (0-3) Neutrophils # (Auto) 5.8x10^3uL (1.8-7.7) Lymphocytes # (Auto) 0.5x10^3/uL (1.0-4.8) Monocytes # (Auto) 0.3x10^3/uL (0.0-1.1) Eosinophils # (Auto) 0.1x10^3/uL (0.0-0.7) Basophils # (Auto) 0.1x10^3/uL (0.0-0.2) Microbiology 07/11/16 Blood Culture - Preliminary, Resulted NO GROWTH AFTER 1 DAY 07/08/16 Fecal Leukocyte Stain - Final, Complete 07/06/16 Urine Culture - Final, Complete 07/06/16 Urine Culture Result 1 (NEGRITO) - Final, Complete 07/06/16 Gram Stain - Final, Complete Medications Current Medications Sodium Chloride (Iv Sodium Chloride 0.9% 500ml Bag) 500 ml @ 1,000 mls/hr 1X ONCE IV Last administered on 07/06/16 13:33; Start 07/06/16 at 12:45; Stop 01/12 at 13:14; Status DC Ondansetron HCl (Zofran) 4 mg 1X ONCE IV Last administered on 07/06/16 13:33 ; Start 07/06/16 at 12:45; Stop 07/06/16 at 12:46; Status DC Vancomycin HCl (Vanco Per Pharmacy) 1 each PRN DAILY PRN MC SEE COMMENTS Last administered on 07/13/16 13:51; Start 07/06/16 at 14:00 Piperacillin Sod/ Tazobactam Sod (Zosyn Per Pharmacy) 1 each PRN DAILY PRN MC SEE COMMENTS; Start 07/06/16 at 14:00; Stop 07/08/16 at 09:55; Status DC Levofloxacin/ Dextrose 1 each 1 each PRN DAILY PRN MC SEE COMMENTS; Start 07/06 at 14:00; Stop 07/08/16 at 09:55; Status DC Vancomycin HCl/ Sodium Chloride (Iv Sodium Chloride 0.9% 500ml Bag) 500 ml @ 250 mls/hr 1X ONCE IV Last administered on 07/06/16 15:03; Start 07/06/16 at 14:15; Stop 07/06/16 at 16:14; Status DC Ondansetron HCl (Zofran) 4 mg PRN Q8HRS PRN IV NAUSEA/VOMITING; Start 07/06/16 at 14:30; Stop 07/07/16 at 14:29; Status DC Morphine Sulfate 2 mg PRN Q2HR PRN IV PAIN; Start 07/06/16 at 14:30; Stop 07/07 at 14:29; Status DC Acetaminophen 650 mg 650 mg PRN Q4HRS PRN PO FEVER Last administered on 05:17; Start 07/06/16 at 14:30; Stop 07/07/16 at 14:29; Status DC Piperacillin Sod/ Tazobactam Sod 2.25 gm/Sodium Chloride 50 ml @ 100 mls/hr Q8HRS IV Last administered on 07/08/16 05:17; Start 07/06/16 at 15:00; Stop at 09:55; Status DC Levofloxacin/ Dextrose (LEVAQUIN 500mg PREMIX) 100 ml @ 100 mls/hr Q48H IV Last administered on 07/06/16 17:36; Start 07/06/16 at 15:00; Stop 07/08/16 at 09:55; Status DC Darbepoetin Naif 60 mcg 60 mcg WEEKLYHS SQ Last administered on 07/06/16 19:31 ; Start 07/06/16 at 21:00 Sodium Chloride (Iv Sodium Chloride 0.9% 1000ml Bag) 1,000 ml @ 1,000 mls/hr Q1H PRN IV hypotension; Start 07/06/16 at 23:29; Stop 07/07/16 at 05:28; Status DC Sodium Chloride (Normal Saline Flush) 10 ml 1X PRN PRN IV AP catheter pack; Start 07/06/16 at 23:30; Stop 07/07/16 at 23:29; Status DC Sodium Chloride (Normal Saline Flush) 10 ml 1X PRN PRN IV VB NET DEVELOPER catheter pack; Start 07/06/16 at 23:30; Stop 07/07/16 at 23:29; Status DC Info (PHARMACY MONITORING -- do not chart) 1 each PRN DAILY PRN MC SEE COMMENTS ; Start 07/06/16 at 23:30; Stop 07/09/16 at 21:17; Status DC Info 1 each 1 each PRN DAILY PRN MC SEE COMMENTS; Start 07/06/16 at 23:30; Stop 07/07/16 at 13:09; Status DC Vancomycin HCl/ Sodium Chloride (Iv Sodium Chloride 0.9% 250ml) 250 ml @ 250 mls/hr 1X ONCE IV Last administered on 07/07/16 06:36; Start 07/07/16 at 06: 30; Stop 07/07/16 at 07:29; Status DC Nystatin (Nystop) 1 stephan BID TP Last administered on 07/12/16 20:30; Start 02/12 at 14:00 Oxycodone HCl (Roxicodone) 5 mg PRN Q4HRS PRN PO PAIN; Start 07/07/16 at 18:00 ; Stop 07/07/16 at 18:38; Status DC Acetaminophen (Tylenol) 650 mg PRN Q6HRS PRN PO MILD PAIN / TEMP Last administered on 07/08/16 04:45; Start 07/07/16 at 18:45 Tramadol HCl (Ultram) 50 mg PRN Q6HRS PRN PO MODERATE PAIN Last administered on 07/08/16 04:45; Start 07/07/16 at 18:45 Acetaminophen/ Hydrocodone Bitart (Lortab 5/325) 1 tab PRN Q4HRS PRN PO SEVERE PAIN Last administered on 07/09/16 20:23; Start 07/08/16 at 09:30 Vancomycin HCl 1 each 1X ONCE MC Last administered on 07/09/16 05:31; Start 07/09/16 at 05:00; Stop 07/09/16 at 05:01; Status DC Amiodarone HCl (Cordarone) 200 mg BID PO Last administered on 07/12/16 20:31; Start 07/08/16 at 21:00 Aripiprazole (Abilify) 2.5 mg DAILY PO Last administered on 07/12/16 08:44; Start 07/09/16 at 09:00 Aspirin (Ecotrin) 81 mg DAILY PO Last administered on 07/12/16 08:48; Start at 15:00 Atorvastatin Calcium (Lipitor) 20 mg HS PO Last administered on 07/12/16 20:30 ; Start 07/08/16 at 21:00 Buspirone HCl (Buspar) 5 mg TID PO Last administered on 07/12/16 20:29; Start 07/08/16 at 15:00 Clonidine HCl (Catapres) 0.2 mg DAILY PO Last administered on 07/12/16 08:47; Start 07/09/16 at 09:00 Docusate Sodium (Colace) 100 mg BID PO Last administered on 07/10/16 21:01; Start 07/08/16 at 21:00 Ferrous Sulfate (Feosol) 325 mg DAILY PO Last administered on 07/12/16 08:48; Start 07/09/16 at 09:00 Heparin Sodium (Porcine) 5,000 unit TID SQ Last administered on 07/12/16 20:36 ; Start 07/08/16 at 15:00 Albuterol/ Ipratropium (Duoneb) 3 ml PRN QID PRN NEB SHORTNESS OF BREATH; Start 07/08/16 at 14:45 Labetalol HCl (Normodyne) 10 mg PRN BID PRN IVP HYPERTENSION, SEE COMMENTS; Start 07/08/16 at 15:15 Nystatin (Nystop) 1 stephan BID TP ; Start 07/08/16 at 21:00; Status Cancel Mirtazapine (Remeron) 7.5 mg DAILY PO Last administered on 07/12/16 08:49; Start 07/09/16 at 09:00 Polyethylene Glycol (miraLAX PACKET) 17 gm DAILY PO Last administered on 09:00; Start 07/09/16 at 09:00 Sennosides (Senna) 8.6 mg DAILY PO Last administered on 07/10/16 14:45; Start 07/09/16 at 09:00 Non-Formulary Medication 100 mcg WEEKLY SQ TO TREAT ANEMIA; Start 07/15/16 at 09 :00; Status UNV Diltiazem HCl (Cardizem 24hr Cd) 360 mg DAILY PO Last administered on 08:46; Start 07/09/16 at 09:00 Escitalopram Oxalate (Lexapro) 20 mg DAILY PO Last administered on 07/12/16 08 :42; Start 07/09/16 at 09:00 Vitamin B Complex/ Vitamin C (Zoe-Kiran) 1 tab DAILY PO Last administered on 08:50; Start 07/09/16 at 09:00 Gabapentin (Neurontin) 600 mg BID PO Last administered on 07/12/16 20:29; Start 07/08/16 at 21:00 Non-Formulary Medication 9 mg DAILY PO ; Start 07/09/16 at 09:00; Status UNV Insulin Aspart (Novolog) 10 units TIDAC SQ Last administered on 07/12/16 12:33 ; Start 07/08/16 at 16:30 Heparin Sodium (Porcine) (Heparin Sodium) 10,000 unit STK-MED ONCE .ROUTE ; Start 07/09/16 at 11:22; Stop 07/09/16 at 11:23; Status DC Lidocaine/Sodium Bicarbonate 20 ml 20 ml STK-MED ONCE IJ ; Start 07/09/16 at 11: 22; Stop 07/09/16 at 11:23; Status DC Heparin Sodium/ Sodium Chloride 500 ml @ As Directed STK-MED ONCE .ROUTE ; Start 07/09/16 at 11:22; Stop 07/09/16 at 11:23; Status DC Heparin Sodium/ Sodium Chloride 60 unit 1X ONCE IV Last administered on 12:21; Start 07/09/16 at 11:45; Stop 07/09/16 at 11:51; Status DC Heparin Sodium (Porcine) (Heparin Sodium) 2,500 unit 1X ONCE INT CAT Last administered on 07/09/16t 12:21; Start 07/09/16 at 11:45; Stop 07/09/16 at 11:51 ; Status DC Lidocaine/Sodium Bicarbonate (Buffered Lidocaine 1%) 3 ml 1X ONCE IJ Last administered on 07/09/16t 12:20; Start 07/09/16 at 11:45; Stop 07/09/16 at 11:51 ; Status DC Methylprednisolone Acetate (Depo-Medrol 40mg Vial) 40 mg 1X ONCE IM ; Start at 14:45; Stop 07/09/16 at 14:59; Status DC Bupivacaine HCl 10 ml 10 ml 1X ONCE IJ ; Start 07/09/16 at 14:45; Stop at 14:59; Status DC Sodium Chloride 1,000 ml @ 1,000 mls/hr Q1H PRN IV hypotension; Start 07/09/16 at 15:15; Stop 07/09/16 at 21:14; Status DC Albumin Human (Albuminar) 200 ml @ 200 mls/hr 1X PRN PRN IV Hypotension; Start 07/09/16 at 15:15; Stop 07/09/16 at 21:14; Status DC Acetaminophen (Tylenol) 500 mg 1X PRN PRN PO MILD PAIN / TEMP; Start 07/09/16 at 15:15; Stop 07/10/16 at 15:14; Status DC Diphenhydramine HCl (Benadryl) 25 mg 1X PRN PRN IV ITCHING; Start 07/09/16 at 15:15; Stop 07/10/16 at 15:14; Status DC Diphenhydramine HCl (Benadryl) 25 mg 1X PRN PRN IV ITCHING; Start 07/09/16 at 15:15; Stop 07/10/16 at 15:14; Status DC Labetalol HCl (Normodyne) 10 mg PRN Q1HR PRN IVP SBP > 180; Start 07/09/16 at 15:15; Stop 07/10/16 at 15:14; Status DC Clonidine HCl (Catapres) 0.1 mg 1X PRN PRN PO SBP > 180; Start 07/09/16 at 15: 15; Stop 07/10/16 at 15:14; Status DC Info (PHARMACY MONITORING -- do not chart) 1 each PRN DAILY PRN MC SEE COMMENTS ; Start 07/09/16 at 15:15; Status Cancel Vancomycin HCl 1 each 1 each 1X ONCE MC ; Start 07/11/16 at 06:00; Stop at 06:01; Status DC Sodium Chloride (Iv Sodium Chloride 0.9% 1000ml Bag) 1,000 ml @ 1,000 mls/hr Q1H PRN IV hypotension; Start 07/10/16 at 10:45; Stop 07/10/16 at 16:44; Status DC Sodium Chloride (Normal Saline Flush) 10 ml 1X PRN PRN IV AP catheter pack; Start 07/10/16 at 10:45; Stop 07/11/16 at 10:44; Status DC Sodium Chloride (Normal Saline Flush) 10 ml 1X PRN PRN IV VB NET DEVELOPER catheter pack; Start 07/10/16 at 10:45; Stop 07/11/16 at 10:44; Status DC Info (PHARMACY MONITORING -- do not chart) 1 each PRN DAILY PRN MC SEE COMMENTS ; Start 07/10/16 at 10:45; Stop 07/10/16 at 14:25; Status DC Info 1 each 1 each PRN DAILY PRN MC SEE COMMENTS; Start 07/10/16 at 10:45; Status Cancel Lactated Ringer's 1,000 ml @ 50 mls/hr Q20H IV ; Start 07/13/16 at 07:00; Stop 07/13/16 at 18:59; Status Cancel Vancomycin HCl 500 mg/Sodium Chloride 100 ml @ 100 mls/hr 1X ONCE IV Last administered on 07/11/16t 18:00; Start 07/11/16 at 18:00; Stop 07/11/16 at 18:59 ; Status DC Sodium Chloride 1,000 ml @ 1,000 mls/hr Q1H PRN IV hypotension; Start 07/13/16 at 08:26; Stop 07/13/16 at 14:25 Albumin Human (Albuminar) 200 ml @ 200 mls/hr 1X PRN PRN IV Hypotension; Start 07/13/16 at 08:30; Stop 07/13/16 at 14:29 Midodrine (Proamatine) 5 mg 1X ONCE PO ; Start 07/13/16 at 08:30; Stop at 08:35; Status DC Acetaminophen (Tylenol) 500 mg 1X PRN PRN PO MILD PAIN / TEMP; Start 07/13/16 at 08:30; Stop 07/14/16 at 08:29 Diphenhydramine HCl (Benadryl) 25 mg 1X PRN PRN IV ITCHING; Start 07/13/16 at 08:30; Stop 07/14/16 at 08:29 Diphenhydramine HCl (Benadryl) 25 mg 1X PRN PRN IV ITCHING; Start 07/13/16 at 08:30; Stop 07/14/16 at 08:29 Labetalol HCl (Normodyne) 10 mg PRN Q1HR PRN IVP SBP > 180; Start 07/13/16 at 08:30; Stop 07/14/16 at 08:29 Clonidine HCl 0.1 mg 0.1 mg 1X PRN PRN PO SBP > 180; Start 07/13/16 at 08:30; Stop 07/14/16 at 08:29 Sodium Chloride (Iv Sodium Chloride 0.9% 1000ml Bag) 1,000 ml @ 400 mls/hr Q2H30M PRN IV PATENCY; Start 07/13/16 at 08:26; Stop 07/13/16 at 20:25 Info 1 each 1 each PRN DAILY PRN MC SEE COMMENTS; Start 07/13/16 at 08:30 Sodium Chloride 1,000 ml @ 0 mls/hr Q0M IV Last administered on 07/13/16t 12: 39; Start 07/13/16 at 12:15 Propofol (Diprivan) 40 ml @ As Directed STK-MED ONCE IV ; Start 07/13/16 at 12: 27; Stop 07/13/16 at 12:28; Status DC Lidocaine HCl (Xylocaine-Mpf 1% Vial) 5 ml STK-MED ONCE .ROUTE ; Start 07/13/16 at 12:27; Stop 07/13/16 at 12:28; Status DC Lidocaine HCl (Viscous Lidocaine) 15 ml STK-MED ONCE .ROUTE ; Start 07/13/16 at 12:28; Stop 07/13/16 at 12:29; Status DC Benzocaine (Hurricaine One) 1 spray STK-MED ONCE .ROUTE ; Start 07/13/16 at 12: 28; Stop 07/13/16 at 12:29; Status DC Lidocaine HCl 30 stephan 30 stephan STK-MED ONCE TP ; Start 07/13/16 at 12:28; Stop at 12:29; Status DC Vancomycin HCl/ Sodium Chloride (Iv Sodium Chloride 0.9% 100ml) 100 ml @ 100 mls/hr 1X ONCE IV ; Start 07/13/16 at 16:00; Stop 07/13/16 at 16:59 Active Scripts Active Reported Amiodarone Hcl 200 Mg Tablet 200 Mg PO BID Aspir 81 (Aspirin) 81 Mg Tablet.dr 81 Mg PO DAILY Atorvastatin Calcium 20 Mg Tablet 20 Mg PO HS Cardizem Cd (Diltiazem Hcl) 360 Mg Cap.er.24h 360 Mg PO DAILY Docusate Sodium 100 Mg Capsule 100 Mg PO BID Melatonin 3 Mg Tablet 9 Mg PO DAILY Polyethylene Glycol 3350 17 Gm Powd.pack 17 Gm PO DAILY Senna (Sennosides) 8.6 Mg Tablet 8.6 Mg PO DAILY Clonidine Hcl 0.2 Mg Tablet 0.2 Mg PO DAILY Micro-Guard (Miconazole Nitrate) 85 Gm Powder 85 Gm TP BID Humalog (Insulin Lispro) 100 Unit/1 Ml Vial 100 Unit SQ Buspirone Hcl 5 Mg Tablet 5 Mg PO TID Aranesp Vial (Darbepoetin Naif In Polysorbat) 100 Mcg/1 Ml Vial 100 Mcg SQ WEEKLY Nephron Fa Tablet (Fe Fumarate/Dinorah/Fa/Bcomp&C) 1 Each Tablet 1 Each PO DAILY Ferrous Sulfate 325 Mg Tablet 1 Tab PO DAILY Escitalopram Oxalate 20 Mg Tablet 20 Mg PO DAILY Duoneb 0.5-3(2.5) Mg/3 Ml (Albuterol/Ipratropium) 3 Ml Ampul.neb 3 Ml NEB QID PRN Gabapentin 600 Mg Tablet 600 Mg PO BID Mirtazapine 7.5 Mg Tablet 7.5 Mg PO DAILY Abilify (Aripiprazole) 2 Mg Tablet 2.5 Mg PO DAILY Labetalol Hcl 5 Mg/1 Ml Vial 10 Mg IV PRN Heparin Sod 5,000 Unit/ 0.5 Ml (Heparin Sodium,Porcine/Pf) 5,000 Unit/0.5 Ml Vial 5,000 Unit IJ TID Novolin N (Nph, Human Insulin Isophane) 100 Unit/1 Ml Vial 100 Unit SQ PRN Vitals/I & O Vital Sign - Last 24 Hours 07/12/16 07/12/16 07/12/1607/12/17 15:00 19:00 20:00 20:31 Temp 99.0 98.5 99.0 98.5 Pulse 59 70 62 Resp 20 20 B/P 107/51 140/57 140/57 Pulse Ox 91 96 O2 Delivery Nasal Cannula Nasal Cannula Nasal Cannula O2 Flow Rate 2.5 2.5 07/12/16 07/13/16 07/13/16 07/13/16 23:00 07:00 08:00 12:37 Temp 98.3 98.2 97.6 98.3 98.2 97.6 Pulse 66 64 74 Resp 20 12 16 B/P 140/58 139/58 137/58 Pulse Ox 99 97 99 O2 Delivery Nasal Cannula Nasal Cannula Nasal Cannula Nasal Cannula O2 Flow Rate 2.0 2.0 2.0 07/13/16 07/13/16 07/13/16 07/13/16 13:21 13:21 13:36 13:51 Temp 97.6 97.6 97.6 97.6 97.6 97.6 Pulse 75 80 79 Resp 15 15 15 B/P 132/51 114/55 121/65 Pulse Ox 99 99 99 O2 Delivery Nasal Cannula Nasal Cannula Nasal Cannula Nasal Cannula O2 Flow Rate 2.0 2.0 2.0 2.0 Intake and Output 07/12/16 07/12/16 07/13/16 15:00 23:00 07:00 Intake Total 300 ml 250 ml Balance 300 ml 250 ml Problem List Problems Medical Problems: (1) Anemia Status: Acute (2) End stage renal disease Status: Acute (3) Generalized weakness Status: Acute (4) Healthcare-associated pneumonia Status: Acute (5) Sepsis Status: Acute (6) Transient hypotension Status: Acute (7) Urinary tract infection Status: Acute Assessment Stable GI-gandara. ID issues continue. Plan of Care: Continue current Tx, Mgmt JOSE MANUEL VASQUEZ MD Jul 13, 2016 14:19
[2016-07-13 15:00] VITALS: BP 138/55
--- NOTE | 2016-07-13 15:29 | CARD ---
APPROVED REPORT EXAM: Two-dimensional and M-mode echocardiogram with Doppler and color Doppler. INDICATION Endocarditis RISK FACTORS Obesity Reason For Test : Rule out endocarditis. PROCEDURE After obtaining informed consent, patient underwent transesophageal echo in the PACU. Type of Sedation : Conscious Sedation Sedation was provided by anesthesiologist, see EMR for medications administered. Sedation was achieved with Propofol 270mg intravenously. Transesophageal probe was inserted and advanced into esophagus by Osiel Gonzalez MD. The TO was performed without complications. Throughout the procedure, the blood pressure, pulse oximetry, cardiac rhythm, and rate were monitored . The patient tolerated the procedure without adverse effects. Recovery from conscious sedation was une ventful and vital signs were stable. LEFT VENTRICLE The left ventricle is normal size. There is normal left ventricular wall thickness. The left ventricu lar systolic function is normal and the ejection fraction is within normal range. The Ejection Fracti on is >55%. There is normal LV segmental wall motion. RIGHT VENTRICLE The right ventricle is normal size. There is normal right ventricular wall thickness. The right ventr icular systolic function is normal. ATRIA The left atrium size is normal. The right atrium size is normal. A dialysis catheter is seen near the right atrium. A somewhat mobile and hypoechoic structure is noted on the lateral wall of the right a trium consistent with a possible thrombus related to the catheter. It does not involve the tricuspid valve. The interatrial septum is intact with no evidence for an atrial septal defect or patent forame n ovale as noted on 2-D or Doppler imaging. There is no thrombus noted in the left atrial appendage. AORTIC VALVE The aortic valve is moderately sclerotic. The aortic valve is trileaflet. Doppler and Color Flow reve aled trace to mild aortic regurgitation. There is no significant aortic valve stenosis. MITRAL VALVE Mitral annular calcification is mild. The mitral valve leaflets are thickened. There is no evidence o f mitral valve prolapse. There is no mitral valve stenosis. Doppler and Color Flow revealed no mitral valve regurgitation noted. TRICUSPID VALVE The tricuspid valve is normal in structure and function. Doppler and Color Flow revealed mild tricusp id regurgitation. The pulmonary artery systolic pressure was not calculated. PULMONIC VALVE The pulmonary valve is normal in structure and function. GREAT VESSELS The aortic root is normal in size. The ascending aorta is normal in size. The pulmonary artery is nor mal. The IVC is was not well seen. Critical Notification Critical Value: Yes <Conclusion> The left ventricle is normal size. The left ventricular systolic function is normal and the ejection fraction is within normal range. The Ejection Fraction is >55%. The right atrium size is normal. A dialysis catheter is seen near the right atrium. A somewhat mobile and hypoechoic structure is noted on the lateral wall of the right atrium consistent with a possible thrombus related to the catheter. It does not involve the tricuspid valve. The aortic valve is moderately sclerotic. There is no significant aortic valve stenosis. Doppler and Color Flow revealed trace to mild aortic regurgitation. The mitral valve leaflets are thickened. Doppler and Color Flow revealed no mitral valve regurgitation noted. There is no mitral valve stenosis. Doppler and Color Flow revealed mild tricuspid regurgitation. The pulmonary artery systolic pressure was not calculated. The pulmonary valve is normal in structure and function. No evidence of a vegetation related to a cardiac valve is present. There is a probable thrombus in the right atrium possibly secondary to the patient's catheter.
--- NOTE | 2016-07-13 15:37 | PDOC ---
PROGRESS NOTES Chief Complaint Chief Complaint cc: Diarrhea, MRSA sepsis ESRD on dialysis Encephalopathy Diabetes mellitus morbid obese, BMI 47, down almost 150lbs from max weight Hyperlipidemia Hypertension KRYSTLE Infected HDC catheter. MRSA -s/p placement temp [facility] HDC 07/09 -s/p removal [place] HDC 07/07 Encephalopathy ESRD History of Present Illness History of Present Illness OOB to chair, use commode, wound consult to eval backside on Vancomycin pharmacy dosing Encephalopathic try ABG in AM HD per nephrology SSI labs reviewed, Follow blood cx d/w , Vitals Vitals Vital Signs Date Time Temp Pulse Resp B/P Pulse Ox O2 Delivery O2 Flow Rate FiO2 07/13/16 15:00 98.3 79 20 138/55 97 Nasal Cannula 2.0 98.3 Physical Exam General: Alert, Cooperative Heart: Regular rate, Normal S1, Normal S2 Lungs: Crackles, Other (No chest retractions were present) Abdomen: Soft, No tenderness Extremities: No clubbing, No cyanosis Skin: No rashes, No breakdown Labs LABS Laboratory Tests Test 07/12/16 17:11 07/13/16 10:46 Glucose (Fingerstick) 252mg/dL (70-99) White Blood Count 6.9x10^3/uL (4.0-11.0) Red Blood Count 4.03x10^6/uL (3.50-5.40) Hemoglobin 10.7g/dL (12.0-15.5) Hematocrit 33.0% (36.0-47.0) Mean Corpuscular Volume 82fL (79-100) Mean Corpuscular Hemoglobin 27pg (25-35) Mean Corpuscular Hemoglobin Concent 33g/dL (31-37) Red Cell Distribution Width 16.0% (11.5-14.5) Platelet Count 234x10^3/uL (140-400) Neutrophils (%) (Auto) 85% (31-73) Lymphocytes (%) (Auto) 8% (24-48) Monocytes (%) (Auto) 5% (0-9) Eosinophils (%) (Auto) 2% (0-3) Basophils (%) (Auto) 1% (0-3) Neutrophils # (Auto) 5.8x10^3uL (1.8-7.7) Lymphocytes # (Auto) 0.5x10^3/uL (1.0-4.8) Monocytes # (Auto) 0.3x10^3/uL (0.0-1.1) Eosinophils # (Auto) 0.1x10^3/uL (0.0-0.7) Basophils # (Auto) 0.1x10^3/uL (0.0-0.2) Assessment and Plan Assessmemt and Plan Problems Medical Problems: (1) Anemia Status: Acute (2) End stage renal disease Status: Acute (3) Generalized weakness Status: Acute (4) Healthcare-associated pneumonia Status: Acute (5) Sepsis Status: Acute (6) Transient hypotension Status: Acute (7) Urinary tract infection Status: Acute Problems: Comment Review of Relevant I have reviewed the following items dominga (where applicable) has been applied. Labs Laboratory Tests Test 07/11/16 16:32 07/12/16 07:47 07/12/16 11:21 07/12/16 17:11 Glucose (Fingerstick) 172mg/dL (70-99) 284mg/dL (70-99) 290mg/dL (70-99) 252mg/dL (70-99) Test 07/13/16 10:46 White Blood Count 6.9x10^3/uL (4.0-11.0) Red Blood Count 4.03x10^6/uL (3.50-5.40) Hemoglobin 10.7g/dL (12.0-15.5) Hematocrit 33.0% (36.0-47.0) Mean Corpuscular Volume 82fL (79-100) Mean Corpuscular Hemoglobin 27pg (25-35) Mean Corpuscular Hemoglobin Concent 33g/dL (31-37) Red Cell Distribution Width 16.0% (11.5-14.5) Platelet Count 234x10^3/uL (140-400) Neutrophils (%) (Auto) 85% (31-73) Lymphocytes (%) (Auto) 8% (24-48) Monocytes (%) (Auto) 5% (0-9) Eosinophils (%) (Auto) 2% (0-3) Basophils (%) (Auto) 1% (0-3) Neutrophils # (Auto) 5.8x10^3uL (1.8-7.7) Lymphocytes # (Auto) 0.5x10^3/uL (1.0-4.8) Monocytes # (Auto) 0.3x10^3/uL (0.0-1.1) Eosinophils # (Auto) 0.1x10^3/uL (0.0-0.7) Basophils # (Auto) 0.1x10^3/uL (0.0-0.2) Laboratory Tests Test 07/12/16 17:11 07/13/16 10:46 Glucose (Fingerstick) 252mg/dL (70-99) White Blood Count 6.9x10^3/uL (4.0-11.0) Red Blood Count 4.03x10^6/uL (3.50-5.40) Hemoglobin 10.7g/dL (12.0-15.5) Hematocrit 33.0% (36.0-47.0) Mean Corpuscular Volume 82fL (79-100) Mean Corpuscular Hemoglobin 27pg (25-35) Mean Corpuscular Hemoglobin Concent 33g/dL (31-37) Red Cell Distribution Width 16.0% (11.5-14.5) Platelet Count 234x10^3/uL (140-400) Neutrophils (%) (Auto) 85% (31-73) Lymphocytes (%) (Auto) 8% (24-48) Monocytes (%) (Auto) 5% (0-9) Eosinophils (%) (Auto) 2% (0-3) Basophils (%) (Auto) 1% (0-3) Neutrophils # (Auto) 5.8x10^3uL (1.8-7.7) Lymphocytes # (Auto) 0.5x10^3/uL (1.0-4.8) Monocytes # (Auto) 0.3x10^3/uL (0.0-1.1) Eosinophils # (Auto) 0.1x10^3/uL (0.0-0.7) Basophils # (Auto) 0.1x10^3/uL (0.0-0.2) Microbiology 07/11/16 Blood Culture - Preliminary, Resulted NO GROWTH AFTER 2 DAYS 07/08/16 Fecal Leukocyte Stain - Final, Complete 07/06/16 Urine Culture - Final, Complete 07/06/16 Urine Culture Result 1 (NEGRITO) - Final, Complete 07/06/16 Gram Stain - Final, Complete Medications Current Medications Sodium Chloride (Iv Sodium Chloride 0.9% 500ml Bag) 500 ml @ 1,000 mls/hr 1X ONCE IV Last administered on 07/06/16 13:33; Start 07/06/16 at 12:45; Stop 01/12 at 13:14; Status DC Ondansetron HCl (Zofran) 4 mg 1X ONCE IV Last administered on 07/06/16 13:33 ; Start 07/06/16 at 12:45; Stop 07/06/16 at 12:46; Status DC Vancomycin HCl (Vanco Per Pharmacy) 1 each PRN DAILY PRN MC SEE COMMENTS Last administered on 07/13/16 13:51; Start 07/06/16 at 14:00 Piperacillin Sod/ Tazobactam Sod (Zosyn Per Pharmacy) 1 each PRN DAILY PRN MC SEE COMMENTS; Start 07/06/16 at 14:00; Stop 07/08/16 at 09:55; Status DC Levofloxacin/ Dextrose 1 each 1 each PRN DAILY PRN MC SEE COMMENTS; Start 07/06 at 14:00; Stop 07/08/16 at 09:55; Status DC Vancomycin HCl/ Sodium Chloride (Iv Sodium Chloride 0.9% 500ml Bag) 500 ml @ 250 mls/hr 1X ONCE IV Last administered on 07/06/16 15:03; Start 07/06/16 at 14:15; Stop 07/06/16 at 16:14; Status DC Ondansetron HCl (Zofran) 4 mg PRN Q8HRS PRN IV NAUSEA/VOMITING; Start 07/06/16 at 14:30; Stop 07/07/16 at 14:29; Status DC Morphine Sulfate 2 mg PRN Q2HR PRN IV PAIN; Start 07/06/16 at 14:30; Stop 07/07 at 14:29; Status DC Acetaminophen 650 mg 650 mg PRN Q4HRS PRN PO FEVER Last administered on 05:17; Start 07/06/16 at 14:30; Stop 07/07/16 at 14:29; Status DC Piperacillin Sod/ Tazobactam Sod 2.25 gm/Sodium Chloride 50 ml @ 100 mls/hr Q8HRS IV Last administered on 07/08/16 05:17; Start 07/06/16 at 15:00; Stop at 09:55; Status DC Levofloxacin/ Dextrose (LEVAQUIN 500mg PREMIX) 100 ml @ 100 mls/hr Q48H IV Last administered on 07/06/16 17:36; Start 07/06/16 at 15:00; Stop 07/08/16 at 09:55; Status DC Darbepoetin Naif 60 mcg 60 mcg WEEKLYHS SQ Last administered on 07/06/16 19:31 ; Start 07/06/16 at 21:00 Sodium Chloride (Iv Sodium Chloride 0.9% 1000ml Bag) 1,000 ml @ 1,000 mls/hr Q1H PRN IV hypotension; Start 07/06/16 at 23:29; Stop 07/07/16 at 05:28; Status DC Sodium Chloride (Normal Saline Flush) 10 ml 1X PRN PRN IV AP catheter pack; Start 07/06/16 at 23:30; Stop 07/07/16 at 23:29; Status DC Sodium Chloride (Normal Saline Flush) 10 ml 1X PRN PRN IV WELL TESTER catheter pack; Start 07/06/16 at 23:30; Stop 07/07/16 at 23:29; Status DC Info (PHARMACY MONITORING -- do not chart) 1 each PRN DAILY PRN MC SEE COMMENTS ; Start 07/06/16 at 23:30; Stop 07/09/16 at 21:17; Status DC Info 1 each 1 each PRN DAILY PRN MC SEE COMMENTS; Start 07/06/16 at 23:30; Stop 07/07/16 at 13:09; Status DC Vancomycin HCl/ Sodium Chloride (Iv Sodium Chloride 0.9% 250ml) 250 ml @ 250 mls/hr 1X ONCE IV Last administered on 07/07/16 06:36; Start 07/07/16 at 06: 30; Stop 07/07/16 at 07:29; Status DC Nystatin (Nystop) 1 stephan BID TP Last administered on 07/12/16 20:30; Start 02/12 at 14:00 Oxycodone HCl (Roxicodone) 5 mg PRN Q4HRS PRN PO PAIN; Start 07/07/16 at 18:00 ; Stop 07/07/16 at 18:38; Status DC Acetaminophen (Tylenol) 650 mg PRN Q6HRS PRN PO MILD PAIN / TEMP Last administered on 07/08/16 04:45; Start 07/07/16 at 18:45 Tramadol HCl (Ultram) 50 mg PRN Q6HRS PRN PO MODERATE PAIN Last administered on 07/08/16 04:45; Start 07/07/16 at 18:45 Acetaminophen/ Hydrocodone Bitart (Lortab 5/325) 1 tab PRN Q4HRS PRN PO SEVERE PAIN Last administered on 07/09/16 20:23; Start 07/08/16 at 09:30 Vancomycin HCl 1 each 1X ONCE MC Last administered on 07/09/16 05:31; Start 07/09/16 at 05:00; Stop 07/09/16 at 05:01; Status DC Amiodarone HCl (Cordarone) 200 mg BID PO Last administered on 07/12/16 20:31; Start 07/08/16 at 21:00 Aripiprazole (Abilify) 2.5 mg DAILY PO Last administered on 07/12/16 08:44; Start 07/09/16 at 09:00 Aspirin (Ecotrin) 81 mg DAILY PO Last administered on 07/12/16 08:48; Start at 15:00 Atorvastatin Calcium (Lipitor) 20 mg HS PO Last administered on 07/12/16 20:30 ; Start 07/08/16 at 21:00 Buspirone HCl (Buspar) 5 mg TID PO Last administered on 07/12/16 20:29; Start 07/08/16 at 15:00 Clonidine HCl (Catapres) 0.2 mg DAILY PO Last administered on 07/12/16 08:47; Start 07/09/16 at 09:00 Docusate Sodium (Colace) 100 mg BID PO Last administered on 07/10/16 21:01; Start 07/08/16 at 21:00 Ferrous Sulfate (Feosol) 325 mg DAILY PO Last administered on 07/12/16 08:48; Start 07/09/16 at 09:00 Heparin Sodium (Porcine) 5,000 unit TID SQ Last administered on 07/12/16 20:36 ; Start 07/08/16 at 15:00 Albuterol/ Ipratropium (Duoneb) 3 ml PRN QID PRN NEB SHORTNESS OF BREATH; Start 07/08/16 at 14:45 Labetalol HCl (Normodyne) 10 mg PRN BID PRN IVP HYPERTENSION, SEE COMMENTS; Start 07/08/16 at 15:15 Nystatin (Nystop) 1 stephan BID TP ; Start 07/08/16 at 21:00; Status Cancel Mirtazapine (Remeron) 7.5 mg DAILY PO Last administered on 07/12/16 08:49; Start 07/09/16 at 09:00 Polyethylene Glycol (miraLAX PACKET) 17 gm DAILY PO Last administered on 09:00; Start 07/09/16 at 09:00 Sennosides (Senna) 8.6 mg DAILY PO Last administered on 07/10/16 14:45; Start 07/09/16 at 09:00 Non-Formulary Medication 100 mcg WEEKLY SQ TO TREAT ANEMIA; Start 07/15/16 at 09 :00; Status UNV Diltiazem HCl (Cardizem 24hr Cd) 360 mg DAILY PO Last administered on 08:46; Start 07/09/16 at 09:00 Escitalopram Oxalate (Lexapro) 20 mg DAILY PO Last administered on 07/12/16 08 :42; Start 07/09/16 at 09:00 Vitamin B Complex/ Vitamin C (Zoe-Kiran) 1 tab DAILY PO Last administered on 08:50; Start 07/09/16 at 09:00 Gabapentin (Neurontin) 600 mg BID PO Last administered on 07/12/16 20:29; Start 07/08/16 at 21:00 Non-Formulary Medication 9 mg DAILY PO ; Start 07/09/16 at 09:00; Status UNV Insulin Aspart (Novolog) 10 units TIDAC SQ Last administered on 07/12/16 12:33 ; Start 07/08/16 at 16:30 Heparin Sodium (Porcine) (Heparin Sodium) 10,000 unit STK-MED ONCE .ROUTE ; Start 07/09/16 at 11:22; Stop 07/09/16 at 11:23; Status DC Lidocaine/Sodium Bicarbonate 20 ml 20 ml STK-MED ONCE IJ ; Start 07/09/16 at 11: 22; Stop 07/09/16 at 11:23; Status DC Heparin Sodium/ Sodium Chloride 500 ml @ As Directed STK-MED ONCE .ROUTE ; Start 07/09/16 at 11:22; Stop 07/09/16 at 11:23; Status DC Heparin Sodium/ Sodium Chloride 60 unit 1X ONCE IV Last administered on 12:21; Start 07/09/16 at 11:45; Stop 07/09/16 at 11:51; Status DC Heparin Sodium (Porcine) (Heparin Sodium) 2,500 unit 1X ONCE INT CAT Last administered on 07/09/16 12:21; Start 07/09/16 at 11:45; Stop 07/09/16 at 11:51 ; Status DC Lidocaine/Sodium Bicarbonate (Buffered Lidocaine 1%) 3 ml 1X ONCE IJ Last administered on 07/09/16 12:20; Start 07/09/16 at 11:45; Stop 07/09/16 at 11:51 ; Status DC Methylprednisolone Acetate (Depo-Medrol 40mg Vial) 40 mg 1X ONCE IM ; Start at 14:45; Stop 07/09/16 at 14:59; Status DC Bupivacaine HCl 10 ml 10 ml 1X ONCE IJ ; Start 07/09/16 at 14:45; Stop at 14:59; Status DC Sodium Chloride 1,000 ml @ 1,000 mls/hr Q1H PRN IV hypotension; Start 07/09/16 at 15:15; Stop 07/09/16 at 21:14; Status DC Albumin Human (Albuminar) 200 ml @ 200 mls/hr 1X PRN PRN IV Hypotension; Start 07/09/16 at 15:15; Stop 07/09/16 at 21:14; Status DC Acetaminophen (Tylenol) 500 mg 1X PRN PRN PO MILD PAIN / TEMP; Start 07/09/16 at 15:15; Stop 07/10/16 at 15:14; Status DC Diphenhydramine HCl (Benadryl) 25 mg 1X PRN PRN IV ITCHING; Start 07/09/16 at 15:15; Stop 07/10/16 at 15:14; Status DC Diphenhydramine HCl (Benadryl) 25 mg 1X PRN PRN IV ITCHING; Start 07/09/16 at 15:15; Stop 07/10/16 at 15:14; Status DC Labetalol HCl (Normodyne) 10 mg PRN Q1HR PRN IVP SBP > 180; Start 07/09/16 at 15:15; Stop 07/10/16 at 15:14; Status DC Clonidine HCl (Catapres) 0.1 mg 1X PRN PRN PO SBP > 180; Start 07/09/16 at 15: 15; Stop 07/10/16 at 15:14; Status DC Info (PHARMACY MONITORING -- do not chart) 1 each PRN DAILY PRN MC SEE COMMENTS ; Start 07/09/16 at 15:15; Status Cancel Vancomycin HCl 1 each 1 each 1X ONCE MC ; Start 07/11/16 at 06:00; Stop at 06:01; Status DC Sodium Chloride (Iv Sodium Chloride 0.9% 1000ml Bag) 1,000 ml @ 1,000 mls/hr Q1H PRN IV hypotension; Start 07/10/16 at 10:45; Stop 07/10/16 at 16:44; Status DC Sodium Chloride (Normal Saline Flush) 10 ml 1X PRN PRN IV AP catheter pack; Start 07/10/16 at 10:45; Stop 07/11/16 at 10:44; Status DC Sodium Chloride (Normal Saline Flush) 10 ml 1X PRN PRN IV WELL TESTER catheter pack; Start 07/10/16 at 10:45; Stop 07/11/16 at 10:44; Status DC Info (PHARMACY MONITORING -- do not chart) 1 each PRN DAILY PRN MC SEE COMMENTS ; Start 07/10/16 at 10:45; Stop 07/10/16 at 14:25; Status DC Info 1 each 1 each PRN DAILY PRN MC SEE COMMENTS; Start 07/10/16 at 10:45; Status Cancel Lactated Ringer's 1,000 ml @ 50 mls/hr Q20H IV ; Start 07/13/16 at 07:00; Stop 07/13/16 at 18:59; Status Cancel Vancomycin HCl 500 mg/Sodium Chloride 100 ml @ 100 mls/hr 1X ONCE IV Last administered on 07/11/16t 18:00; Start 07/11/16 at 18:00; Stop 07/11/16 at 18:59 ; Status DC Sodium Chloride 1,000 ml @ 1,000 mls/hr Q1H PRN IV hypotension; Start 07/13/16 at 08:26; Stop 07/13/16 at 14:25; Status DC Albumin Human (Albuminar) 200 ml @ 200 mls/hr 1X PRN PRN IV Hypotension; Start 07/13/16 at 08:30; Stop 07/13/16 at 14:29; Status DC Midodrine (Proamatine) 5 mg 1X ONCE PO ; Start 07/13/16 at 08:30; Stop at 08:35; Status DC Acetaminophen (Tylenol) 500 mg 1X PRN PRN PO MILD PAIN / TEMP; Start 07/13/16 at 08:30; Stop 07/14/16 at 08:29 Diphenhydramine HCl (Benadryl) 25 mg 1X PRN PRN IV ITCHING; Start 07/13/16 at 08:30; Stop 07/14/16 at 08:29 Diphenhydramine HCl (Benadryl) 25 mg 1X PRN PRN IV ITCHING; Start 07/13/16 at 08:30; Stop 07/14/16 at 08:29 Labetalol HCl (Normodyne) 10 mg PRN Q1HR PRN IVP SBP > 180; Start 07/13/16 at 08:30; Stop 07/14/16 at 08:29 Clonidine HCl 0.1 mg 0.1 mg 1X PRN PRN PO SBP > 180; Start 07/13/16 at 08:30; Stop 07/14/16 at 08:29 Sodium Chloride (Iv Sodium Chloride 0.9% 1000ml Bag) 1,000 ml @ 400 mls/hr Q2H30M PRN IV PATENCY; Start 07/13/16 at 08:26; Stop 07/13/16 at 20:25 Info 1 each 1 each PRN DAILY PRN MC SEE COMMENTS; Start 07/13/16 at 08:30 Sodium Chloride 1,000 ml @ 0 mls/hr Q0M IV Last administered on 07/13/16t 12: 39; Start 07/13/16 at 12:15 Propofol (Diprivan) 40 ml @ As Directed STK-MED ONCE IV ; Start 07/13/16 at 12: 27; Stop 07/13/16 at 12:28; Status DC Lidocaine HCl (Xylocaine-Mpf 1% Vial) 5 ml STK-MED ONCE .ROUTE ; Start 07/13/16 at 12:27; Stop 07/13/16 at 12:28; Status DC Lidocaine HCl (Viscous Lidocaine) 15 ml STK-MED ONCE .ROUTE ; Start 07/13/16 at 12:28; Stop 07/13/16 at 12:29; Status DC Benzocaine (Hurricaine One) 1 spray STK-MED ONCE .ROUTE ; Start 07/13/16 at 12: 28; Stop 07/13/16 at 12:29; Status DC Lidocaine HCl 30 stephan 30 stephan STK-MED ONCE TP ; Start 07/13/16 at 12:28; Stop at 12:29; Status DC Vancomycin HCl/ Sodium Chloride (Iv Sodium Chloride 0.9% 100ml) 100 ml @ 100 mls/hr 1X ONCE IV ; Start 07/13/16 at 16:00; Stop 07/13/16 at 16:59 Active Scripts Active Reported Amiodarone Hcl 200 Mg Tablet 200 Mg PO BID Aspir 81 (Aspirin) 81 Mg Tablet.dr 81 Mg PO DAILY Atorvastatin Calcium 20 Mg Tablet 20 Mg PO HS Cardizem Cd (Diltiazem Hcl) 360 Mg Cap.er.24h 360 Mg PO DAILY Docusate Sodium 100 Mg Capsule 100 Mg PO BID Melatonin 3 Mg Tablet 9 Mg PO DAILY Polyethylene Glycol 3350 17 Gm Powd.pack 17 Gm PO DAILY Senna (Sennosides) 8.6 Mg Tablet 8.6 Mg PO DAILY Clonidine Hcl 0.2 Mg Tablet 0.2 Mg PO DAILY Micro-Guard (Miconazole Nitrate) 85 Gm Powder 85 Gm TP BID Humalog (Insulin Lispro) 100 Unit/1 Ml Vial 100 Unit SQ Buspirone Hcl 5 Mg Tablet 5 Mg PO TID Aranesp Vial (Darbepoetin Naif In Polysorbat) 100 Mcg/1 Ml Vial 100 Mcg SQ WEEKLY Nephron Fa Tablet (Fe Fumarate/Dinorah/Fa/Bcomp&C) 1 Each Tablet 1 Each PO DAILY Ferrous Sulfate 325 Mg Tablet 1 Tab PO DAILY Escitalopram Oxalate 20 Mg Tablet 20 Mg PO DAILY Duoneb 0.5-3(2.5) Mg/3 Ml (Albuterol/Ipratropium) 3 Ml Ampul.neb 3 Ml NEB QID PRN Gabapentin 600 Mg Tablet 600 Mg PO BID Mirtazapine 7.5 Mg Tablet 7.5 Mg PO DAILY Abilify (Aripiprazole) 2 Mg Tablet 2.5 Mg PO DAILY Labetalol Hcl 5 Mg/1 Ml Vial 10 Mg IV PRN Heparin Sod 5,000 Unit/ 0.5 Ml (Heparin Sodium,Porcine/Pf) 5,000 Unit/0.5 Ml Vial 5,000 Unit IJ TID Novolin N (Nph, Human Insulin Isophane) 100 Unit/1 Ml Vial 100 Unit SQ PRN Vitals/I & O Vital Sign - Last 24 Hours 07/12/16 07/12/16 07/12/16 07/12/16 19:00 20:00 20:31 23:00 Temp 98.5 98.3 98.5 98.3 Pulse 70 62 66 Resp 20 20 B/P 140/57 140/57 140/58 Pulse Ox 96 99 O2 Delivery Nasal Cannula Nasal Cannula Nasal Cannula O2 Flow Rate 2.5 07/13/16 07/13/16 07/13/16 07/13/16 07:00 08:00 12:37 13:21 Temp 98.2 97.6 97.6 98.2 97.6 97.6 Pulse 64 74 75 Resp 16 15 B/P 139/58 137/58 132/51 Pulse Ox 97 99 99 O2 Delivery Nasal Cannula Nasal Cannula Nasal Cannula Nasal Cannula O2 Flow Rate 2.0 2.0 2.0 2.0 07/13/16 07/13/16 07/13/16 07/13/16 13:21 13:36 13:51 15:00 Temp 97.6 97.6 98.3 97.6 97.6 98.3 Pulse 80 79 79 Resp 15 20 B/P 114/55 121/65 138/55 Pulse Ox 99 99 97 O2 Delivery Nasal Cannula Nasal Cannula Nasal Cannula Nasal Cannula O2 Flow Rate 2.0 2.0 2.0 2.0 Intake and Output 07/12/16 07/12/16 07/13/16 15:00 23:00 07:00 Intake Total 300 ml 250 ml Balance 300 ml 250 ml Nutrition Consultation Dietary Evaluation: Recommendations by RD: Increase Calorie Intake, Protein supplementation Comments: Resume diet and Novasource renal - 475kcal and 21.6g protein/ serving Expected Outcomes/Goals: to meet >75% est nutr needs Malnutrition Findings: Food and Nutrition Intake (Mod: <75% est energy req 7days Weight Status: Morbidly Obese Fluid Accumulation (Non-Severe: Mild depletion TOMASZ ARTEAGA MD Jul 13, 2016 15:37
[2016-07-13] MEDS ORDERED: VANCOMYCIN 500 MG in IV NORMAL SALINE 100ML 100 ML IV ONE (16:00)
[2016-07-13] MEDS: GABAPENTIN 300 MG CAPSULE. PO SCH ×2 (16:12→22:42)
[2016-07-13] MEDS: MIRTAZAPINE 7.5 MG TABLET. PO SCH (16:12)
[2016-07-13] MEDS: FOLIC/VIT B COMP W-C (RENAL) TABLET. PO SCH (16:12)
[2016-07-13] MEDS: ESCITALOPRAM 10 MG TABLET. PO SCH (16:12)
[2016-07-13] MEDS: ASPIRIN ENTERIC COATED 81 MG TABLET.DR. PO SCH (16:13)
[2016-07-13] MEDS: FERROUS SULFATE 325 MG TABLET. PO SCH (16:13)
[2016-07-13] MEDS: ARIPiprazole 2 MG TABLET PO SCH (16:13)
[2016-07-13] MEDS: AMIODARONE HCL 200 MG TABLET. PO SCH ×2 (16:14→22:42)
[2016-07-13] MEDS: cloNIDine HCL 0.2 MG TABLET PO SCH (16:14)
--- NOTE | 2016-07-13 18:37 | PDOC ---
PULMONARY PROGRESS NOTES Subjective not more soa Vitals Vital Signs Date Time Temp Pulse Resp B/P Pulse Ox O2 Delivery O2 Flow Rate FiO2 07/13/16 16:14 79 138/55 07/13/16 15:00 98.3 20 97 Nasal Cannula 2.0 98.3 ROS: No Nausea, No Chest Pain, No Abdominal Pain, No Increase Cough General: Alert Lungs: Crackles, Other (No chest retractions were present) Cardiovascular: S1, S2 Abdomen: Soft, Non-tender Neuro Exam: Alert Extremities: No Edema Skin: Warm Labs Laboratory Tests Test 07/12/16 07:47 07/12/16 11:21 07/12/16 17:11 07/13/16 10:46 Glucose (Fingerstick) 284mg/dL (70-99) 290mg/dL (70-99) 252mg/dL (70-99) White Blood Count 6.9x10^3/uL (4.0-11.0) Red Blood Count 4.03x10^6/uL (3.50-5.40) Hemoglobin 10.7g/dL (12.0-15.5) Hematocrit 33.0% (36.0-47.0) Mean Corpuscular Volume 82fL (79-100) Mean Corpuscular Hemoglobin 27pg (25-35) Mean Corpuscular Hemoglobin Concent 33g/dL (31-37) Red Cell Distribution Width 16.0% (11.5-14.5) Platelet Count 234x10^3/uL (140-400) Neutrophils (%) (Auto) 85% (31-73) Lymphocytes (%) (Auto) 8% (24-48) Monocytes (%) (Auto) 5% (0-9) Eosinophils (%) (Auto) 2% (0-3) Basophils (%) (Auto) 1% (0-3) Neutrophils # (Auto) 5.8x10^3uL (1.8-7.7) Lymphocytes # (Auto) 0.5x10^3/uL (1.0-4.8) Monocytes # (Auto) 0.3x10^3/uL (0.0-1.1) Eosinophils # (Auto) 0.1x10^3/uL (0.0-0.7) Basophils # (Auto) 0.1x10^3/uL (0.0-0.2) Test 07/13/16 17:32 Glucose (Fingerstick) 274mg/dL (70-99) Laboratory Tests Test 07/13/16 10:46 07/13/16 17:32 White Blood Count 6.9x10^3/uL (4.0-11.0) Red Blood Count 4.03x10^6/uL (3.50-5.40) Hemoglobin 10.7g/dL (12.0-15.5) Hematocrit 33.0% (36.0-47.0) Mean Corpuscular Volume 82fL (79-100) Mean Corpuscular Hemoglobin 27pg (25-35) Mean Corpuscular Hemoglobin Concent 33g/dL (31-37) Red Cell Distribution Width 16.0% (11.5-14.5) Platelet Count 234x10^3/uL (140-400) Neutrophils (%) (Auto) 85% (31-73) Lymphocytes (%) (Auto) 8% (24-48) Monocytes (%) (Auto) 5% (0-9) Eosinophils (%) (Auto) 2% (0-3) Basophils (%) (Auto) 1% (0-3) Neutrophils # (Auto) 5.8x10^3uL (1.8-7.7) Lymphocytes # (Auto) 0.5x10^3/uL (1.0-4.8) Monocytes # (Auto) 0.3x10^3/uL (0.0-1.1) Eosinophils # (Auto) 0.1x10^3/uL (0.0-0.7) Basophils # (Auto) 0.1x10^3/uL (0.0-0.2) Glucose (Fingerstick) 274mg/dL (70-99) Medications Active Scripts Medications Dose Route/Sig Days Date Category Amiodarone Hcl 200 Mg Tablet 200 Mg PO BID 08/28/15 Reported Aspir 81 (Aspirin) 81 Mg Tablet.dr 81 Mg PO DAILY 08/28/15 Reported Atorvastatin Calcium 20 Mg Tablet 20 Mg PO HS 08/28/15 Reported Cardizem Cd (Diltiazem Hcl) 360 Mg Cap.er.24h 360 Mg PO DAILY 08/28/15 Reported Docusate Sodium 100 Mg Capsule 100 Mg PO BID 08/28/15 Reported Melatonin 3 Mg Tablet 9 Mg PO DAILY 08/28/15 Reported Polyethylene Glycol 3350 17 Gm Powd.pack 17 Gm PO DAILY 08/28/15 Reported Senna (Sennosides) 8.6 Mg Tablet 8.6 Mg PO DAILY 08/28/15 Reported Clonidine Hcl 0.2 Mg Tablet 0.2 Mg PO DAILY 08/28/15 Reported Micro-Guard (Miconazole Nitrate) 85 Gm Powder 85 Gm TP BID 08/28/15 Reported Humalog (Insulin Lispro) 100 Unit/1 Ml Vial 100 Unit SQ 08/28/15 Reported Buspirone Hcl 5 Mg Tablet 5 Mg PO TID 08/28/15 Reported Aranesp Vial (Darbepoetin Naif In Polysorbat) 100 Mcg/1 Ml Vial 100 Mcg SQ WEEKLY 08/28/15 Reported Nephron Fa Tablet (Fe Fumarate/Dinorah/Fa/Bcomp&C) 1 Each Tablet 1 Each PO DAILY 08/28/15 Reported Ferrous Sulfate 325 Mg Tablet 1 Tab PO DAILY 08/28/15 Reported Escitalopram Oxalate 20 Mg Tablet 20 Mg PO DAILY 08/28/15 Reported Duoneb 0.5-3(2.5) Mg/3 Ml (Albuterol/Ipratropium) 3 Ml Ampul.neb 3 Ml NEB QID PRN 08/28/15 Reported Gabapentin 600 Mg Tablet 600 Mg PO BID 08/28/15 Reported Mirtazapine 7.5 Mg Tablet 7.5 Mg PO DAILY 08/28/15 Reported Abilify (Aripiprazole) 2 Mg Tablet 2.5 Mg PO DAILY 08/28/15 Reported Labetalol Hcl 5 Mg/1 Ml Vial 10 Mg IV PRN 08/28/15 Reported Heparin Sod 5,000 Unit/ 0.5 Ml (Heparin Sodium,Porcine/Pf) 5,000 Unit/0.5 Ml Vial 5,000 Unit IJ TID 08/28/15 Reported Novolin N (Nph, Human Insulin Isophane) 100 Unit/1 Ml Vial 100 Unit SQ PRN 05/31/13 Reported Impression . 1. Acute respiratory failure, suspect sepsis. 2. Sepsis secondary to urinary tract infection. 3. Possible obstructive sleep apnea. 4. End-stage renal disease, noncompliant. 5. Type 2 diabetes. 6. Depression. 7. Hyperlipidemia. 8 .Bacteremia Plan . continue the same resp status is compensated TO pending 1. Continue antibiotics 2. outpatient polysomnogram, nocturnal desaturation study prior to discharge. 3. Continue home meds. 4. follow nephro input, new cath for HD 5. follow Gi input FARIDEH COOK MD Jul 13, 2016 18:37
[2016-07-13 19:19] VITALS: BP 129/51
[2016-07-13] MEDS: DARBEPOETIN ALFA 60 MCG/0.3 ML DISP.SYRIN. SQ SCH (22:41)
[2016-07-13] MEDS: ATORVASTATIN CALCIUM 20 MG TABLET PO SCH (22:42)
[2016-07-13] MEDS: HYDROCODONE/APAP 5/325MG TABLET. PO PRN (22:42)
[2016-07-13] MEDS: TRAMADOL 50 MG TABLET. PO PRN (22:43)
[2016-07-13 23:00] VITALS: BP 146/59
[2016-07-14 03:00] VITALS: BP 147/63
[2016-07-14 04:29] LABS: BASO % 0 % (0-3); EOS % 1 % (0-3); HEMATOCRIT 31.3 % (36.0-47.0); HEMOGLOBIN 10.1 g/dL (12.0-15.5); LYMPH # 0.5 x10^3/uL (1.0-4.8); LYMPH % 6 % (24-48); MEAN CORPUSCULAR HEMOGLOBIN 27 pg (25-35); MEAN CORPUSCULAR HGB CONC 32 g/dL (31-37); MEAN CORPUSCULAR VOLUME 83 fL (79-100); MONO % 5 % (0-9); NEUT % 88 % (31-73); PLATELET COUNT 237 x10^3/uL (140-400); WHITE BLOOD COUNT 7.2 x10^3/uL (4.0-11.0)
[2016-07-14 04:47] LABS: ALBUMIN 1.7 g/dL (3.4-5.0); ALBUMIN/GLOBULIN RATIO 0.3 (1.0-1.7); CALCIUM 7.6 mg/dL (8.5-10.1); CREATININE 4.9 mg/dL (0.6-1.0); GFR 9.1; POTASSIUM 4.3 mmol/L (3.5-5.1); TOTAL BILIRUBIN 0.8 mg/dL (0.2-1.0); TOTAL PROTEIN 6.9 g/dL (6.4-8.2)
[2016-07-14 04:50] LABS: MAGNESIUM 2.1 mg/dL (1.8-2.4); PHOSPHORUS 6.2 mg/dL (2.6-4.7)
[2016-07-14 07:00] VITALS: BP 133/46
[2016-07-14 07:24] LABS: % EOS 4 % (0-5); PLT ESTIMATE ADEQUATE (ADEQUATE)
[2016-07-14] MEDS: POLYETHYLENE GLYCOL 3350 17 GM PACKET. PO SCH (09:00)
[2016-07-14] MEDS: DOCUSATE SODIUM 100 MG CAPSULE. PO SCH ×2 (09:00→21:00)
[2016-07-14] MEDS: SENNOSIDES 8.6 MG TABLET PO SCH (09:00)
[2016-07-14] MEDS: FOLIC/VIT B COMP W-C (RENAL) TABLET. PO SCH (09:08)
[2016-07-14] MEDS: busPIRone 5 MG TABLET. PO SCH ×3 (09:09→22:08)
[2016-07-14] MEDS: cloNIDine HCL 0.2 MG TABLET PO SCH (09:09)
--- NOTE | 2016-07-14 09:09 | PDOC ---
PROGRESS NOTES Subjective Subjective She feels better. Objective Objective Vital Signs Date Time Temp Pulse Resp B/P Pulse Ox O2 Delivery O2 Flow Rate FiO2 07/14/16 03:00 98.2 98 20 147/63 93 Nasal Cannula 2.0 98.2 Intake and Output 07/14/16 07:00 Intake Total 460 ml Balance 460 ml Intake Oral 360 ml IV Total 100 ml # Voids 5 # Bowel Movements 3 Physical Exam Physical Exam She is alert,supine in bed and eager to get up and work with therapy. Assessment Assessment Problems Medical Problems: (1) Anemia Status: Acute (2) End stage renal disease Status: Acute (3) Generalized weakness Status: Acute (4) Healthcare-associated pneumonia Status: Acute (5) Sepsis Status: Acute (6) Transient hypotension Status: Acute (7) Urinary tract infection Status: Acute Plan Plan of Care To get her up as tolerated. Comment Review of Relevant I have reviewed the following items dominga (where applicable) has been applied. Labs Laboratory Tests Test 07/12/16 11:21 07/12/16 17:11 07/13/16 10:46 07/13/16 17:32 Glucose (Fingerstick) 290mg/dL (70-99) 252mg/dL (70-99) 274mg/dL (70-99) White Blood Count 6.9x10^3/uL (4.0-11.0) Red Blood Count 4.03x10^6/uL (3.50-5.40) Hemoglobin 10.7g/dL (12.0-15.5) Hematocrit 33.0% (36.0-47.0) Mean Corpuscular Volume 82fL (79-100) Mean Corpuscular Hemoglobin 27pg (25-35) Mean Corpuscular Hemoglobin Concent 33g/dL (31-37) Red Cell Distribution Width 16.0% (11.5-14.5) Platelet Count 234x10^3/uL (140-400) Neutrophils (%) (Auto) 85% (31-73) Lymphocytes (%) (Auto) 8% (24-48) Monocytes (%) (Auto) 5% (0-9) Eosinophils (%) (Auto) 2% (0-3) Basophils (%) (Auto) 1% (0-3) Neutrophils # (Auto) 5.8x10^3uL (1.8-7.7) Lymphocytes # (Auto) 0.5x10^3/uL (1.0-4.8) Monocytes # (Auto) 0.3x10^3/uL (0.0-1.1) Eosinophils # (Auto) 0.1x10^3/uL (0.0-0.7) Basophils # (Auto) 0.1x10^3/uL (0.0-0.2) Test 07/14/16 04:10 07/14/16 08:33 White Blood Count 7.2x10^3/uL (4.0-11.0) Red Blood Count 3.80x10^6/uL (3.50-5.40) Hemoglobin 10.1g/dL (12.0-15.5) Hematocrit 31.3% (36.0-47.0) Mean Corpuscular Volume 83fL (79-100) Mean Corpuscular Hemoglobin 27pg (25-35) Mean Corpuscular Hemoglobin Concent 32g/dL (31-37) Red Cell Distribution Width 16.0% (11.5-14.5) Platelet Count 237x10^3/uL (140-400) Neutrophils (%) (Auto) 88% (31-73) Lymphocytes (%) (Auto) 6% (24-48) Monocytes (%) (Auto) 5% (0-9) Eosinophils (%) (Auto) 1% (0-3) Basophils (%) (Auto) 0% (0-3) Neutrophils # (Auto) 6.3x10^3uL (1.8-7.7) Lymphocytes # (Auto) 0.5x10^3/uL (1.0-4.8) Monocytes # (Auto) 0.3x10^3/uL (0.0-1.1) Eosinophils # (Auto) 0.0x10^3/uL (0.0-0.7) Basophils # (Auto) 0.0x10^3/uL (0.0-0.2) Segmented Neutrophils % 87% (35-66) Band Neutrophils % 1% (0-9) Lymphocytes % 5% (24-48) Monocytes % 3% (0-10) Eosinophils % 4% (0-5) Platelet Estimate Adequate (ADEQUATE) Sodium Level 131mmol/L (136-145) Potassium Level 4.3mmol/L (3.5-5.1) Chloride Level 95mmol/L (98-107) Carbon Dioxide Level 27mmol/L (21-32) Anion Gap 9 (6-14) Blood Urea Nitrogen 48mg/dL (7-20) Creatinine 4.9mg/dL (0.6-1.0) Estimated GFR (Cockcroft-Gault) 9.1 BUN/Creatinine Ratio 10 (6-20) Glucose Level 368mg/dL (70-99) Calcium Level 7.6mg/dL (8.5-10.1) Phosphorus Level 6.2mg/dL (2.6-4.7) Magnesium Level 2.1mg/dL (1.8-2.4) Total Bilirubin 0.8mg/dL (0.2-1.0) Aspartate Amino Transf (AST/SGOT) 39U/L (15-37) Alanine Aminotransferase (ALT/SGPT) 32U/L (14-59) Alkaline Phosphatase 278U/L (46-116) Total Protein 6.9g/dL (6.4-8.2) Albumin 1.7g/dL (3.4-5.0) Albumin/Globulin Ratio 0.3 (1.0-1.7) Glucose (Fingerstick) 332mg/dL (70-99) Laboratory Tests Test 07/13/16 10:46 07/13/16 17:32 07/14/16 04:10 07/14/16 08:33 White Blood Count 6.9x10^3/uL (4.0-11.0) 7.2x10^3/uL (4.0-11.0) Red Blood Count 4.03x10^6/uL (3.50-5.40) 3.80x10^6/uL (3.50-5.40) Hemoglobin 10.7g/dL (12.0-15.5) 10.1g/dL (12.0-15.5) Hematocrit 33.0% (36.0-47.0) 31.3% (36.0-47.0) Mean Corpuscular Volume 82fL (79-100) 83fL (79-100) Mean Corpuscular Hemoglobin 27pg (25-35) 27pg (25-35) Mean Corpuscular Hemoglobin Concent 33g/dL (31-37) 32g/dL (31-37) Red Cell Distribution Width 16.0% (11.5-14.5) 16.0% (11.5-14.5) Platelet Count 234x10^3/uL (140-400) 237x10^3/uL (140-400) Neutrophils (%) (Auto) 85% (31-73) 88% (31-73) Lymphocytes (%) (Auto) 8% (24-48) 6% (24-48) Monocytes (%) (Auto) 5% (0-9) 5% (0-9) Eosinophils (%) (Auto) 2% (0-3) 1% (0-3) Basophils (%) (Auto) 1% (0-3) 0% (0-3) Neutrophils # (Auto) 5.8x10^3uL (1.8-7.7) 6.3x10^3uL (1.8-7.7) Lymphocytes # (Auto) 0.5x10^3/uL (1.0-4.8) 0.5x10^3/uL (1.0-4.8) Monocytes # (Auto) 0.3x10^3/uL (0.0-1.1) 0.3x10^3/uL (0.0-1.1) Eosinophils # (Auto) 0.1x10^3/uL (0.0-0.7) 0.0x10^3/uL (0.0-0.7) Basophils # (Auto) 0.1x10^3/uL (0.0-0.2) 0.0x10^3/uL (0.0-0.2) Glucose (Fingerstick) 274mg/dL (70-99) 332mg/dL (70-99) Segmented Neutrophils % 87% (35-66) Band Neutrophils % 1% (0-9) Lymphocytes % 5% (24-48) Monocytes % 3% (0-10) Eosinophils % 4% (0-5) Platelet Estimate Adequate (ADEQUATE) Sodium Level 131mmol/L (136-145) Potassium Level 4.3mmol/L (3.5-5.1) Chloride Level 95mmol/L (98-107) Carbon Dioxide Level 27mmol/L (21-32) Anion Gap 9 (6-14) Blood Urea Nitrogen 48mg/dL (7-20) Creatinine 4.9mg/dL (0.6-1.0) Estimated GFR (Cockcroft-Gault) 9.1 BUN/Creatinine Ratio 10 (6-20) Glucose Level 368mg/dL (70-99) Calcium Level 7.6mg/dL (8.5-10.1) Phosphorus Level 6.2mg/dL (2.6-4.7) Magnesium Level 2.1mg/dL (1.8-2.4) Total Bilirubin 0.8mg/dL (0.2-1.0) Aspartate Amino Transf (AST/SGOT) 39U/L (15-37) Alanine Aminotransferase (ALT/SGPT) 32U/L (14-59) Alkaline Phosphatase 278U/L (46-116) Total Protein 6.9g/dL (6.4-8.2) Albumin 1.7g/dL (3.4-5.0) Albumin/Globulin Ratio 0.3 (1.0-1.7) Microbiology 07/11/16 Blood Culture - Preliminary, Resulted NO GROWTH AFTER 2 DAYS 07/08/16 Fecal Leukocyte Stain - Final, Complete 07/06/16 Urine Culture - Final, Complete 07/06/16 Urine Culture Result 1 (NEGRITO) - Final, Complete 07/06/16 Gram Stain - Final, Complete Medications Current Medications Sodium Chloride (Iv Sodium Chloride 0.9% 500ml Bag) 500 ml @ 1,000 mls/hr 1X ONCE IV Last administered on 07/06/16 13:33; Start 07/06/16 at 12:45; Stop 01/12 at 13:14; Status DC Ondansetron HCl (Zofran) 4 mg 1X ONCE IV Last administered on 07/06/16 13:33 ; Start 07/06/16 at 12:45; Stop 07/06/16 at 12:46; Status DC Vancomycin HCl (Vanco Per Pharmacy) 1 each PRN DAILY PRN MC SEE COMMENTS Last administered on 07/13/16 13:51; Start 07/06/16 at 14:00 Piperacillin Sod/ Tazobactam Sod (Zosyn Per Pharmacy) 1 each PRN DAILY PRN MC SEE COMMENTS; Start 07/06/16 at 14:00; Stop 07/08/16 at 09:55; Status DC Levofloxacin/ Dextrose 1 each 1 each PRN DAILY PRN MC SEE COMMENTS; Start 07/06 at 14:00; Stop 07/08/16 at 09:55; Status DC Vancomycin HCl/ Sodium Chloride (Iv Sodium Chloride 0.9% 500ml Bag) 500 ml @ 250 mls/hr 1X ONCE IV Last administered on 07/06/16 15:03; Start 07/06/16 at 14:15; Stop 07/06/16 at 16:14; Status DC Ondansetron HCl (Zofran) 4 mg PRN Q8HRS PRN IV NAUSEA/VOMITING; Start 07/06/16 at 14:30; Stop 07/07/16 at 14:29; Status DC Morphine Sulfate 2 mg PRN Q2HR PRN IV PAIN; Start 07/06/16 at 14:30; Stop 07/07 at 14:29; Status DC Acetaminophen 650 mg 650 mg PRN Q4HRS PRN PO FEVER Last administered on 05:17; Start 07/06/16 at 14:30; Stop 07/07/16 at 14:29; Status DC Piperacillin Sod/ Tazobactam Sod 2.25 gm/Sodium Chloride 50 ml @ 100 mls/hr Q8HRS IV Last administered on 07/08/16 05:17; Start 07/06/16 at 15:00; Stop at 09:55; Status DC Levofloxacin/ Dextrose (LEVAQUIN 500mg PREMIX) 100 ml @ 100 mls/hr Q48H IV Last administered on 07/06/16 17:36; Start 07/06/16 at 15:00; Stop 07/08/16 at 09:55; Status DC Darbepoetin Naif 60 mcg 60 mcg WEEKLYHS SQ Last administered on 07/13/16 22:41 ; Start 07/06/16 at 21:00 Sodium Chloride (Iv Sodium Chloride 0.9% 1000ml Bag) 1,000 ml @ 1,000 mls/hr Q1H PRN IV hypotension; Start 07/06/16 at 23:29; Stop 07/07/16 at 05:28; Status DC Sodium Chloride (Normal Saline Flush) 10 ml 1X PRN PRN IV AP catheter pack; Start 07/06/16 at 23:30; Stop 07/07/16 at 23:29; Status DC Sodium Chloride (Normal Saline Flush) 10 ml 1X PRN PRN IV CIRCLE EDGER catheter pack; Start 07/06/16 at 23:30; Stop 07/07/16 at 23:29; Status DC Info (PHARMACY MONITORING -- do not chart) 1 each PRN DAILY PRN MC SEE COMMENTS ; Start 07/06/16 at 23:30; Stop 07/09/16 at 21:17; Status DC Info 1 each 1 each PRN DAILY PRN MC SEE COMMENTS; Start 07/06/16 at 23:30; Stop 07/07/16 at 13:09; Status DC Vancomycin HCl/ Sodium Chloride (Iv Sodium Chloride 0.9% 250ml) 250 ml @ 250 mls/hr 1X ONCE IV Last administered on 07/07/16 06:36; Start 07/07/16 at 06: 30; Stop 07/07/16 at 07:29; Status DC Nystatin (Nystop) 1 stephan BID TP Last administered on 07/13/16 21:00; Start 02/12 at 14:00 Oxycodone HCl (Roxicodone) 5 mg PRN Q4HRS PRN PO PAIN; Start 07/07/16 at 18:00 ; Stop 07/07/16 at 18:38; Status DC Acetaminophen (Tylenol) 650 mg PRN Q6HRS PRN PO MILD PAIN / TEMP Last administered on 07/08/16 04:45; Start 07/07/16 at 18:45 Tramadol HCl (Ultram) 50 mg PRN Q6HRS PRN PO MODERATE PAIN Last administered on 07/13/16 22:43; Start 07/07/16 at 18:45 Acetaminophen/ Hydrocodone Bitart (Lortab 5/325) 1 tab PRN Q4HRS PRN PO SEVERE PAIN Last administered on 07/13/16 22:42; Start 07/08/16 at 09:30 Vancomycin HCl 1 each 1X ONCE MC Last administered on 07/09/16 05:31; Start 07/09/16 at 05:00; Stop 07/09/16 at 05:01; Status DC Amiodarone HCl (Cordarone) 200 mg BID PO Last administered on 07/13/16 22:42; Start 07/08/16 at 21:00 Aripiprazole (Abilify) 2.5 mg DAILY PO Last administered on 07/13/16 16:13; Start 07/09/16 at 09:00 Aspirin (Ecotrin) 81 mg DAILY PO Last administered on 07/13/16 16:13; Start at 15:00 Atorvastatin Calcium (Lipitor) 20 mg HS PO Last administered on 07/13/16 22:42 ; Start 07/08/16 at 21:00 Buspirone HCl (Buspar) 5 mg TID PO Last administered on 07/13/16 22:43; Start 07/08/16 at 15:00 Clonidine HCl (Catapres) 0.2 mg DAILY PO Last administered on 07/13/16 16:14; Start 07/09/16 at 09:00 Docusate Sodium (Colace) 100 mg BID PO Last administered on 07/13/16 22:41; Start 07/08/16 at 21:00 Ferrous Sulfate (Feosol) 325 mg DAILY PO Last administered on 07/13/16 16:13; Start 07/09/16 at 09:00 Heparin Sodium (Porcine) 5,000 unit TID SQ Last administered on 07/13/16 22:51 ; Start 07/08/16 at 15:00 Albuterol/ Ipratropium (Duoneb) 3 ml PRN QID PRN NEB SHORTNESS OF BREATH; Start 07/08/16 at 14:45 Labetalol HCl (Normodyne) 10 mg PRN BID PRN IVP HYPERTENSION, SEE COMMENTS; Start 07/08/16 at 15:15 Nystatin (Nystop) 1 stephan BID TP ; Start 07/08/16 at 21:00; Status Cancel Mirtazapine (Remeron) 7.5 mg DAILY PO Last administered on 07/13/16 16:12; Start 07/09/16 at 09:00 Polyethylene Glycol (miraLAX PACKET) 17 gm DAILY PO Last administered on 09:00; Start 07/09/16 at 09:00 Sennosides (Senna) 8.6 mg DAILY PO Last administered on 4/14/17at 14:45; Start 07/09/16 at 09:00 Non-Formulary Medication 100 mcg WEEKLY SQ TO TREAT ANEMIA; Start 07/15/16 at 09 :00; Status UNV Diltiazem HCl (Cardizem 24hr Cd) 360 mg DAILY PO Last administered on 16:14; Start 07/09/16 at 09:00 Escitalopram Oxalate (Lexapro) 20 mg DAILY PO Last administered on 07/13/16 16 :12; Start 07/09/16 at 09:00 Vitamin B Complex/ Vitamin C (Zoe-Kiran) 1 tab DAILY PO Last administered on 16:12; Start 07/09/16 at 09:00 Gabapentin (Neurontin) 600 mg BID PO Last administered on 07/13/16 22:42; Start 07/08/16 at 21:00 Non-Formulary Medication 9 mg DAILY PO ; Start 07/09/16 at 09:00; Status UNV Insulin Aspart (Novolog) 10 units TIDAC SQ Last administered on 07/13/16 18:53 ; Start 07/08/16 at 16:30 Heparin Sodium (Porcine) (Heparin Sodium) 10,000 unit STK-MED ONCE .ROUTE ; Start 07/09/16 at 11:22; Stop 07/09/16 at 11:23; Status DC Lidocaine/Sodium Bicarbonate 20 ml 20 ml STK-MED ONCE IJ ; Start 07/09/16 at 11: 22; Stop 07/09/16 at 11:23; Status DC Heparin Sodium/ Sodium Chloride 500 ml @ As Directed STK-MED ONCE .ROUTE ; Start 07/09/16 at 11:22; Stop 07/09/16 at 11:23; Status DC Heparin Sodium/ Sodium Chloride 60 unit 1X ONCE IV Last administered on 12:21; Start 07/09/16 at 11:45; Stop 07/09/16 at 11:51; Status DC Heparin Sodium (Porcine) (Heparin Sodium) 2,500 unit 1X ONCE INT CAT Last administered on 07/09/16 12:21; Start 07/09/16 at 11:45; Stop 07/09/16 at 11:51 ; Status DC Lidocaine/Sodium Bicarbonate (Buffered Lidocaine 1%) 3 ml 1X ONCE IJ Last administered on 07/09/16 12:20; Start 07/09/16 at 11:45; Stop 07/09/16 at 11:51 ; Status DC Methylprednisolone Acetate (Depo-Medrol 40mg Vial) 40 mg 1X ONCE IM ; Start at 14:45; Stop 07/09/16 at 14:59; Status DC Bupivacaine HCl 10 ml 10 ml 1X ONCE IJ ; Start 07/09/16 at 14:45; Stop at 14:59; Status DC Sodium Chloride 1,000 ml @ 1,000 mls/hr Q1H PRN IV hypotension; Start 07/09/16 at 15:15; Stop 07/09/16 at 21:14; Status DC Albumin Human (Albuminar) 200 ml @ 200 mls/hr 1X PRN PRN IV Hypotension; Start 07/09/16 at 15:15; Stop 07/09/16 at 21:14; Status DC Acetaminophen (Tylenol) 500 mg 1X PRN PRN PO MILD PAIN / TEMP; Start 07/09/16 at 15:15; Stop 07/10/16 at 15:14; Status DC Diphenhydramine HCl (Benadryl) 25 mg 1X PRN PRN IV ITCHING; Start 07/09/16 at 15:15; Stop 07/10/16 at 15:14; Status DC Diphenhydramine HCl (Benadryl) 25 mg 1X PRN PRN IV ITCHING; Start 07/09/16 at 15:15; Stop 07/10/16 at 15:14; Status DC Labetalol HCl (Normodyne) 10 mg PRN Q1HR PRN IVP SBP > 180; Start 07/09/16 at 15:15; Stop 07/10/16 at 15:14; Status DC Clonidine HCl (Catapres) 0.1 mg 1X PRN PRN PO SBP > 180; Start 07/09/16 at 15: 15; Stop 07/10/16 at 15:14; Status DC Info (PHARMACY MONITORING -- do not chart) 1 each PRN DAILY PRN MC SEE COMMENTS ; Start 07/09/16 at 15:15; Status Cancel Vancomycin HCl 1 each 1 each 1X ONCE MC ; Start 07/11/16 at 06:00; Stop at 06:01; Status DC Sodium Chloride (Iv Sodium Chloride 0.9% 1000ml Bag) 1,000 ml @ 1,000 mls/hr Q1H PRN IV hypotension; Start 07/10/16 at 10:45; Stop 07/10/16 at 16:44; Status DC Sodium Chloride (Normal Saline Flush) 10 ml 1X PRN PRN IV AP catheter pack; Start 07/10/16 at 10:45; Stop 07/11/16 at 10:44; Status DC Sodium Chloride (Normal Saline Flush) 10 ml 1X PRN PRN IV CIRCLE EDGER catheter pack; Start 07/10/16 at 10:45; Stop 07/11/16 at 10:44; Status DC Info (PHARMACY MONITORING -- do not chart) 1 each PRN DAILY PRN MC SEE COMMENTS ; Start 07/10/16 at 10:45; Stop 07/10/16 at 14:25; Status DC Info 1 each 1 each PRN DAILY PRN MC SEE COMMENTS; Start 07/10/16 at 10:45; Status Cancel Lactated Ringer's 1,000 ml @ 50 mls/hr Q20H IV ; Start 07/13/16 at 07:00; Stop 07/13/16 at 18:59; Status Cancel Vancomycin HCl 500 mg/Sodium Chloride 100 ml @ 100 mls/hr 1X ONCE IV Last administered on 07/11/16t 18:00; Start 07/11/16 at 18:00; Stop 07/11/16 at 18:59 ; Status DC Sodium Chloride 1,000 ml @ 1,000 mls/hr Q1H PRN IV hypotension; Start 07/13/16 at 08:26; Stop 07/13/16 at 14:25; Status DC Albumin Human (Albuminar) 200 ml @ 200 mls/hr 1X PRN PRN IV Hypotension; Start 07/13/16 at 08:30; Stop 07/13/16 at 14:29; Status DC Midodrine (Proamatine) 5 mg 1X ONCE PO ; Start 07/13/16 at 08:30; Stop at 08:35; Status DC Acetaminophen (Tylenol) 500 mg 1X PRN PRN PO MILD PAIN / TEMP; Start 07/13/16 at 08:30; Stop 07/14/16 at 08:29; Status DC Diphenhydramine HCl (Benadryl) 25 mg 1X PRN PRN IV ITCHING; Start 07/13/16 at 08:30; Stop 07/14/16 at 08:29; Status DC Diphenhydramine HCl (Benadryl) 25 mg 1X PRN PRN IV ITCHING; Start 07/13/16 at 08:30; Stop 07/14/16 at 08:29; Status DC Labetalol HCl (Normodyne) 10 mg PRN Q1HR PRN IVP SBP > 180; Start 07/13/16 at 08:30; Stop 07/14/16 at 08:29; Status DC Clonidine HCl 0.1 mg 0.1 mg 1X PRN PRN PO SBP > 180; Start 07/13/16 at 08:30; Stop 07/14/16 at 08:29; Status DC Sodium Chloride (Iv Sodium Chloride 0.9% 1000ml Bag) 1,000 ml @ 400 mls/hr Q2H30M PRN IV PATENCY; Start 07/13/16 at 08:26; Stop 07/13/16 at 20:25; Status DC Info 1 each 1 each PRN DAILY PRN MC SEE COMMENTS; Start 07/13/16 at 08:30 Sodium Chloride 1,000 ml @ 0 mls/hr Q0M IV Last administered on 07/13/16t 12: 39; Start 07/13/16 at 12:15 Propofol (Diprivan) 40 ml @ As Directed STK-MED ONCE IV ; Start 07/13/16 at 12: 27; Stop 07/13/16 at 12:28; Status DC Lidocaine HCl (Xylocaine-Mpf 1% Vial) 5 ml STK-MED ONCE .ROUTE ; Start 07/13/16 at 12:27; Stop 07/13/16 at 12:28; Status DC Lidocaine HCl (Viscous Lidocaine) 15 ml STK-MED ONCE .ROUTE ; Start 07/13/16 at 12:28; Stop 07/13/16 at 12:29; Status DC Benzocaine (Hurricaine One) 1 spray STK-MED ONCE .ROUTE ; Start 07/13/16 at 12: 28; Stop 07/13/16 at 12:29; Status DC Lidocaine HCl 30 stephan 30 stephan STK-MED ONCE TP ; Start 07/13/16 at 12:28; Stop at 12:29; Status DC Vancomycin HCl/ Sodium Chloride (Iv Sodium Chloride 0.9% 100ml) 100 ml @ 100 mls/hr 1X ONCE IV Last administered on 07/13/16t 16:00; Start 07/13/16 at 16: 00; Stop 07/13/16 at 16:59; Status DC Active Scripts Active Reported Amiodarone Hcl 200 Mg Tablet 200 Mg PO BID Aspir 81 (Aspirin) 81 Mg Tablet.dr 81 Mg PO DAILY Atorvastatin Calcium 20 Mg Tablet 20 Mg PO HS Cardizem Cd (Diltiazem Hcl) 360 Mg Cap.er.24h 360 Mg PO DAILY Docusate Sodium 100 Mg Capsule 100 Mg PO BID Melatonin 3 Mg Tablet 9 Mg PO DAILY Polyethylene Glycol 3350 17 Gm Powd.pack 17 Gm PO DAILY Senna (Sennosides) 8.6 Mg Tablet 8.6 Mg PO DAILY Clonidine Hcl 0.2 Mg Tablet 0.2 Mg PO DAILY Micro-Guard (Miconazole Nitrate) 85 Gm Powder 85 Gm TP BID Humalog (Insulin Lispro) 100 Unit/1 Ml Vial 100 Unit SQ Buspirone Hcl 5 Mg Tablet 5 Mg PO TID Aranesp Vial (Darbepoetin Naif In Polysorbat) 100 Mcg/1 Ml Vial 100 Mcg SQ WEEKLY Nephron Fa Tablet (Fe Fumarate/Dinorah/Fa/Bcomp&C) 1 Each Tablet 1 Each PO DAILY Ferrous Sulfate 325 Mg Tablet 1 Tab PO DAILY Escitalopram Oxalate 20 Mg Tablet 20 Mg PO DAILY Duoneb 0.5-3(2.5) Mg/3 Ml (Albuterol/Ipratropium) 3 Ml Ampul.neb 3 Ml NEB QID PRN Gabapentin 600 Mg Tablet 600 Mg PO BID Mirtazapine 7.5 Mg Tablet 7.5 Mg PO DAILY Abilify (Aripiprazole) 2 Mg Tablet 2.5 Mg PO DAILY Labetalol Hcl 5 Mg/1 Ml Vial 10 Mg IV PRN Heparin Sod 5,000 Unit/ 0.5 Ml (Heparin Sodium,Porcine/Pf) 5,000 Unit/0.5 Ml Vial 5,000 Unit IJ TID Novolin N (Nph, Human Insulin Isophane) 100 Unit/1 Ml Vial 100 Unit SQ PRN Vitals/I & O Vital Sign - Last 24 Hours 07/13/16 07/13/16 07/13/16 07/13/16 12:37 13:21 13:21 13:36 Temp 97.6 97.6 97.6 97.6 97.6 97.6 Pulse 74 75 80 Resp 16 15 15 B/P 137/58 132/51 114/55 Pulse Ox 99 99 99 O2 Delivery Nasal Cannula Nasal Cannula Nasal Cannula Nasal Cannula O2 Flow Rate 2.0 2.0 2.0 2.0 07/13/16 07/13/16 07/13/16 07/13/16 13:51 15:00 16:14 16:14 Temp 97.6 98.3 97.6 98.3 Pulse 79 79 79 79 Resp 15 20 B/P 121/65 138/55 138/55 138/55 Pulse Ox 99 97 O2 Delivery Nasal Cannula Nasal Cannula O2 Flow Rate 2.0 2.0 07/13/16 07/13/16 07/13/16 07/13/16 16:14 19:19 20:00 22:42 Temp 97.8 97.8 Pulse 79 73 Resp 18 18 B/P 138/55 129/51 Pulse Ox 92 92 O2 Delivery Nasal Cannula Nasal Cannula Nasal Cannula O2 Flow Rate 2.0 2.0 2.0 07/13/16 07/13/16 07/13/16 07/13/16 22:42 22:43 23:00 23:42 Temp 97.6 97.6 Pulse 73 91 Resp 18 20 B/P 129/51 146/59 Pulse Ox 92 91 92 O2 Delivery Nasal Cannula Nasal Cannula Nasal Cannula O2 Flow Rate 2.0 2.0 2.0 07/13/16 07/14/16 23:42 03:00 Temp 98.2 98.2 Pulse 98 Resp 20 B/P 147/63 Pulse Ox 92 93 O2 Delivery Nasal Cannula Nasal Cannula O2 Flow Rate 2.0 2.0 Intake and Output 07/13/16 07/13/16 07/14/16 15:00 23:00 07:00 Intake Total 100 ml 360 ml Balance 100 ml 360 ml Nutrition Consultation Dietary Evaluation: Recommendations by RD: Increase Calorie Intake, Protein supplementation Comments: Resume diet and Novasource renal - 475kcal and 21.6g protein/ serving Expected Outcomes/Goals: to meet >75% est nutr needs Malnutrition Findings: Food and Nutrition Intake (Mod: <75% est energy req 7days Weight Status: Morbidly Obese Fluid Accumulation (Non-Severe: Mild depletion SHAZIA COLEMAN MD Jul 14, 2016 09:09
[2016-07-14] MEDS: ASPIRIN ENTERIC COATED 81 MG TABLET.DR. PO SCH (09:10)
[2016-07-14] MEDS: ESCITALOPRAM 10 MG TABLET. PO SCH (09:11)
[2016-07-14] MEDS: GABAPENTIN 300 MG CAPSULE. PO SCH ×2 (09:12→22:08)
[2016-07-14] MEDS: FERROUS SULFATE 325 MG TABLET. PO SCH (09:12)
[2016-07-14] MEDS: MIRTAZAPINE 7.5 MG TABLET. PO SCH (09:13)
[2016-07-14] MEDS: AMIODARONE HCL 200 MG TABLET. PO SCH ×2 (09:13→22:08)
[2016-07-14] MEDS: NYSTATIN TOPICAL POWDER 15GM BOTTLE. TP SCH ×2 (09:14→21:00)
[2016-07-14] MEDS: ARIPiprazole 2 MG TABLET PO SCH (09:19)
--- NOTE | 2016-07-14 09:24 | PDOC ---
G I PROGRESS NOTE Objective Not seen today. Others' notes reviewed. Review of Relevant I have reviewed the following items dominga (where applicable) has been applied. Labs Laboratory Tests Test 07/12/16 11:21 07/12/16 17:11 07/13/16 10:46 07/13/16 17:32 Glucose (Fingerstick) 290mg/dL (70-99) 252mg/dL (70-99) 274mg/dL (70-99) White Blood Count 6.9x10^3/uL (4.0-11.0) Red Blood Count 4.03x10^6/uL (3.50-5.40) Hemoglobin 10.7g/dL (12.0-15.5) Hematocrit 33.0% (36.0-47.0) Mean Corpuscular Volume 82fL (79-100) Mean Corpuscular Hemoglobin 27pg (25-35) Mean Corpuscular Hemoglobin Concent 33g/dL (31-37) Red Cell Distribution Width 16.0% (11.5-14.5) Platelet Count 234x10^3/uL (140-400) Neutrophils (%) (Auto) 85% (31-73) Lymphocytes (%) (Auto) 8% (24-48) Monocytes (%) (Auto) 5% (0-9) Eosinophils (%) (Auto) 2% (0-3) Basophils (%) (Auto) 1% (0-3) Neutrophils # (Auto) 5.8x10^3uL (1.8-7.7) Lymphocytes # (Auto) 0.5x10^3/uL (1.0-4.8) Monocytes # (Auto) 0.3x10^3/uL (0.0-1.1) Eosinophils # (Auto) 0.1x10^3/uL (0.0-0.7) Basophils # (Auto) 0.1x10^3/uL (0.0-0.2) Test 07/14/16 04:10 07/14/16 08:33 White Blood Count 7.2x10^3/uL (4.0-11.0) Red Blood Count 3.80x10^6/uL (3.50-5.40) Hemoglobin 10.1g/dL (12.0-15.5) Hematocrit 31.3% (36.0-47.0) Mean Corpuscular Volume 83fL (79-100) Mean Corpuscular Hemoglobin 27pg (25-35) Mean Corpuscular Hemoglobin Concent 32g/dL (31-37) Red Cell Distribution Width 16.0% (11.5-14.5) Platelet Count 237x10^3/uL (140-400) Neutrophils (%) (Auto) 88% (31-73) Lymphocytes (%) (Auto) 6% (24-48) Monocytes (%) (Auto) 5% (0-9) Eosinophils (%) (Auto) 1% (0-3) Basophils (%) (Auto) 0% (0-3) Neutrophils # (Auto) 6.3x10^3uL (1.8-7.7) Lymphocytes # (Auto) 0.5x10^3/uL (1.0-4.8) Monocytes # (Auto) 0.3x10^3/uL (0.0-1.1) Eosinophils # (Auto) 0.0x10^3/uL (0.0-0.7) Basophils # (Auto) 0.0x10^3/uL (0.0-0.2) Segmented Neutrophils % 87% (35-66) Band Neutrophils % 1% (0-9) Lymphocytes % 5% (24-48) Monocytes % 3% (0-10) Eosinophils % 4% (0-5) Platelet Estimate Adequate (ADEQUATE) Sodium Level 131mmol/L (136-145) Potassium Level 4.3mmol/L (3.5-5.1) Chloride Level 95mmol/L (98-107) Carbon Dioxide Level 27mmol/L (21-32) Anion Gap 9 (6-14) Blood Urea Nitrogen 48mg/dL (7-20) Creatinine 4.9mg/dL (0.6-1.0) Estimated GFR (Cockcroft-Gault) 9.1 BUN/Creatinine Ratio 10 (6-20) Glucose Level 368mg/dL (70-99) Calcium Level 7.6mg/dL (8.5-10.1) Phosphorus Level 6.2mg/dL (2.6-4.7) Magnesium Level 2.1mg/dL (1.8-2.4) Total Bilirubin 0.8mg/dL (0.2-1.0) Aspartate Amino Transf (AST/SGOT) 39U/L (15-37) Alanine Aminotransferase (ALT/SGPT) 32U/L (14-59) Alkaline Phosphatase 278U/L (46-116) Total Protein 6.9g/dL (6.4-8.2) Albumin 1.7g/dL (3.4-5.0) Albumin/Globulin Ratio 0.3 (1.0-1.7) Glucose (Fingerstick) 332mg/dL (70-99) Laboratory Tests Test 07/13/16 10:46 07/13/16 17:32 07/14/16 04:10 07/14/16 08:33 White Blood Count 6.9x10^3/uL (4.0-11.0) 7.2x10^3/uL (4.0-11.0) Red Blood Count 4.03x10^6/uL (3.50-5.40) 3.80x10^6/uL (3.50-5.40) Hemoglobin 10.7g/dL (12.0-15.5) 10.1g/dL (12.0-15.5) Hematocrit 33.0% (36.0-47.0) 31.3% (36.0-47.0) Mean Corpuscular Volume 82fL (79-100) 83fL (79-100) Mean Corpuscular Hemoglobin 27pg (25-35) 27pg (25-35) Mean Corpuscular Hemoglobin Concent 33g/dL (31-37) 32g/dL (31-37) Red Cell Distribution Width 16.0% (11.5-14.5) 16.0% (11.5-14.5) Platelet Count 234x10^3/uL (140-400) 237x10^3/uL (140-400) Neutrophils (%) (Auto) 85% (31-73) 88% (31-73) Lymphocytes (%) (Auto) 8% (24-48) 6% (24-48) Monocytes (%) (Auto) 5% (0-9) 5% (0-9) Eosinophils (%) (Auto) 2% (0-3) 1% (0-3) Basophils (%) (Auto) 1% (0-3) 0% (0-3) Neutrophils # (Auto) 5.8x10^3uL (1.8-7.7) 6.3x10^3uL (1.8-7.7) Lymphocytes # (Auto) 0.5x10^3/uL (1.0-4.8) 0.5x10^3/uL (1.0-4.8) Monocytes # (Auto) 0.3x10^3/uL (0.0-1.1) 0.3x10^3/uL (0.0-1.1) Eosinophils # (Auto) 0.1x10^3/uL (0.0-0.7) 0.0x10^3/uL (0.0-0.7) Basophils # (Auto) 0.1x10^3/uL (0.0-0.2) 0.0x10^3/uL (0.0-0.2) Glucose (Fingerstick) 274mg/dL (70-99) 332mg/dL (70-99) Segmented Neutrophils % 87% (35-66) Band Neutrophils % 1% (0-9) Lymphocytes % 5% (24-48) Monocytes % 3% (0-10) Eosinophils % 4% (0-5) Platelet Estimate Adequate (ADEQUATE) Sodium Level 131mmol/L (136-145) Potassium Level 4.3mmol/L (3.5-5.1) Chloride Level 95mmol/L (98-107) Carbon Dioxide Level 27mmol/L (21-32) Anion Gap 9 (6-14) Blood Urea Nitrogen 48mg/dL (7-20) Creatinine 4.9mg/dL (0.6-1.0) Estimated GFR (Cockcroft-Gault) 9.1 BUN/Creatinine Ratio 10 (6-20) Glucose Level 368mg/dL (70-99) Calcium Level 7.6mg/dL (8.5-10.1) Phosphorus Level 6.2mg/dL (2.6-4.7) Magnesium Level 2.1mg/dL (1.8-2.4) Total Bilirubin 0.8mg/dL (0.2-1.0) Aspartate Amino Transf (AST/SGOT) 39U/L (15-37) Alanine Aminotransferase (ALT/SGPT) 32U/L (14-59) Alkaline Phosphatase 278U/L (46-116) Total Protein 6.9g/dL (6.4-8.2) Albumin 1.7g/dL (3.4-5.0) Albumin/Globulin Ratio 0.3 (1.0-1.7) Microbiology 07/11/16 Blood Culture - Preliminary, Resulted NO GROWTH AFTER 2 DAYS 07/08/16 Fecal Leukocyte Stain - Final, Complete 07/06/16 Urine Culture - Final, Complete 07/06/16 Urine Culture Result 1 (NEGRITO) - Final, Complete 07/06/16 Gram Stain - Final, Complete Medications Current Medications Sodium Chloride (Iv Sodium Chloride 0.9% 500ml Bag) 500 ml @ 1,000 mls/hr 1X ONCE IV Last administered on 07/06/16 13:33; Start 07/06/16 at 12:45; Stop 01/12 at 13:14; Status DC Ondansetron HCl (Zofran) 4 mg 1X ONCE IV Last administered on 07/06/16 13:33 ; Start 07/06/16 at 12:45; Stop 07/06/16 at 12:46; Status DC Vancomycin HCl (Vanco Per Pharmacy) 1 each PRN DAILY PRN MC SEE COMMENTS Last administered on 07/13/16 13:51; Start 07/06/16 at 14:00 Piperacillin Sod/ Tazobactam Sod (Zosyn Per Pharmacy) 1 each PRN DAILY PRN MC SEE COMMENTS; Start 07/06/16 at 14:00; Stop 07/08/16 at 09:55; Status DC Levofloxacin/ Dextrose 1 each 1 each PRN DAILY PRN MC SEE COMMENTS; Start 07/06 at 14:00; Stop 07/08/16 at 09:55; Status DC Vancomycin HCl/ Sodium Chloride (Iv Sodium Chloride 0.9% 500ml Bag) 500 ml @ 250 mls/hr 1X ONCE IV Last administered on 07/06/16 15:03; Start 07/06/16 at 14:15; Stop 07/06/16 at 16:14; Status DC Ondansetron HCl (Zofran) 4 mg PRN Q8HRS PRN IV NAUSEA/VOMITING; Start 07/06/16 at 14:30; Stop 07/07/16 at 14:29; Status DC Morphine Sulfate 2 mg PRN Q2HR PRN IV PAIN; Start 07/06/16 at 14:30; Stop 07/07 at 14:29; Status DC Acetaminophen 650 mg 650 mg PRN Q4HRS PRN PO FEVER Last administered on 05:17; Start 07/06/16 at 14:30; Stop 07/07/16 at 14:29; Status DC Piperacillin Sod/ Tazobactam Sod 2.25 gm/Sodium Chloride 50 ml @ 100 mls/hr Q8HRS IV Last administered on 07/08/16 05:17; Start 07/06/16 at 15:00; Stop at 09:55; Status DC Levofloxacin/ Dextrose (LEVAQUIN 500mg PREMIX) 100 ml @ 100 mls/hr Q48H IV Last administered on 07/06/16 17:36; Start 07/06/16 at 15:00; Stop 07/08/16 at 09:55; Status DC Darbepoetin Naif 60 mcg 60 mcg WEEKLYHS SQ Last administered on 07/13/16 22:41 ; Start 07/06/16 at 21:00 Sodium Chloride (Iv Sodium Chloride 0.9% 1000ml Bag) 1,000 ml @ 1,000 mls/hr Q1H PRN IV hypotension; Start 07/06/16 at 23:29; Stop 07/07/16 at 05:28; Status DC Sodium Chloride (Normal Saline Flush) 10 ml 1X PRN PRN IV AP catheter pack; Start 07/06/16 at 23:30; Stop 07/07/16 at 23:29; Status DC Sodium Chloride (Normal Saline Flush) 10 ml 1X PRN PRN IV [employer] catheter pack; Start 07/06/16 at 23:30; Stop 07/07/16 at 23:29; Status DC Info (PHARMACY MONITORING -- do not chart) 1 each PRN DAILY PRN MC SEE COMMENTS ; Start 07/06/16 at 23:30; Stop 07/09/16 at 21:17; Status DC Info 1 each 1 each PRN DAILY PRN MC SEE COMMENTS; Start 07/06/16 at 23:30; Stop 07/07/16 at 13:09; Status DC Vancomycin HCl/ Sodium Chloride (Iv Sodium Chloride 0.9% 250ml) 250 ml @ 250 mls/hr 1X ONCE IV Last administered on 07/07/16 06:36; Start 07/07/16 at 06: 30; Stop 07/07/16 at 07:29; Status DC Nystatin (Nystop) 1 stephan BID TP Last administered on 07/13/16 21:00; Start 02/12 at 14:00 Oxycodone HCl (Roxicodone) 5 mg PRN Q4HRS PRN PO PAIN; Start 07/07/16 at 18:00 ; Stop 07/07/16 at 18:38; Status DC Acetaminophen (Tylenol) 650 mg PRN Q6HRS PRN PO MILD PAIN / TEMP Last administered on 07/08/16 04:45; Start 07/07/16 at 18:45 Tramadol HCl (Ultram) 50 mg PRN Q6HRS PRN PO MODERATE PAIN Last administered on 07/13/16 22:43; Start 07/07/16 at 18:45 Acetaminophen/ Hydrocodone Bitart (Lortab 5/325) 1 tab PRN Q4HRS PRN PO SEVERE PAIN Last administered on 07/13/16 22:42; Start 07/08/16 at 09:30 Vancomycin HCl 1 each 1X ONCE MC Last administered on 07/09/16 05:31; Start 07/09/16 at 05:00; Stop 07/09/16 at 05:01; Status DC Amiodarone HCl (Cordarone) 200 mg BID PO Last administered on 07/13/16 22:42; Start 07/08/16 at 21:00 Aripiprazole (Abilify) 2.5 mg DAILY PO Last administered on 07/13/16 16:13; Start 07/09/16 at 09:00 Aspirin (Ecotrin) 81 mg DAILY PO Last administered on 07/13/16 16:13; Start at 15:00 Atorvastatin Calcium (Lipitor) 20 mg HS PO Last administered on 07/13/16 22:42 ; Start 07/08/16 at 21:00 Buspirone HCl (Buspar) 5 mg TID PO Last administered on 07/13/16 22:43; Start 07/08/16 at 15:00 Clonidine HCl (Catapres) 0.2 mg DAILY PO Last administered on 07/13/16 16:14; Start 07/09/16 at 09:00 Docusate Sodium (Colace) 100 mg BID PO Last administered on 07/13/16 22:41; Start 07/08/16 at 21:00 Ferrous Sulfate (Feosol) 325 mg DAILY PO Last administered on 07/13/16 16:13; Start 07/09/16 at 09:00 Heparin Sodium (Porcine) 5,000 unit TID SQ Last administered on 07/13/16 22:51 ; Start 07/08/16 at 15:00 Albuterol/ Ipratropium (Duoneb) 3 ml PRN QID PRN NEB SHORTNESS OF BREATH; Start 07/08/16 at 14:45 Labetalol HCl (Normodyne) 10 mg PRN BID PRN IVP HYPERTENSION, SEE COMMENTS; Start 07/08/16 at 15:15 Nystatin (Nystop) 1 stephan BID TP ; Start 07/08/16 at 21:00; Status Cancel Mirtazapine (Remeron) 7.5 mg DAILY PO Last administered on 07/13/16 16:12; Start 07/09/16 at 09:00 Polyethylene Glycol (miraLAX PACKET) 17 gm DAILY PO Last administered on 09:00; Start 07/09/16 at 09:00 Sennosides (Senna) 8.6 mg DAILY PO Last administered on 07/10/16 14:45; Start 07/09/16 at 09:00 Non-Formulary Medication 100 mcg WEEKLY SQ TO TREAT ANEMIA; Start 07/15/16 at 09 :00; Status UNV Diltiazem HCl (Cardizem 24hr Cd) 360 mg DAILY PO Last administered on 16:14; Start 07/09/16 at 09:00 Escitalopram Oxalate (Lexapro) 20 mg DAILY PO Last administered on 07/13/16 16 :12; Start 07/09/16 at 09:00 Vitamin B Complex/ Vitamin C (Zoe-Kiran) 1 tab DAILY PO Last administered on 16:12; Start 07/09/16 at 09:00 Gabapentin (Neurontin) 600 mg BID PO Last administered on 4/17/17at 22:42; Start 07/08/16 at 21:00 Non-Formulary Medication 9 mg DAILY PO ; Start 07/09/16 at 09:00; Status UNV Insulin Aspart (Novolog) 10 units TIDAC SQ Last administered on 07/13/16 18:53 ; Start 07/08/16 at 16:30 Heparin Sodium (Porcine) (Heparin Sodium) 10,000 unit STK-MED ONCE .ROUTE ; Start 07/09/16 at 11:22; Stop 07/09/16 at 11:23; Status DC Lidocaine/Sodium Bicarbonate 20 ml 20 ml STK-MED ONCE IJ ; Start 07/09/16 at 11: 22; Stop 07/09/16 at 11:23; Status DC Heparin Sodium/ Sodium Chloride 500 ml @ As Directed STK-MED ONCE .ROUTE ; Start 07/09/16 at 11:22; Stop 07/09/16 at 11:23; Status DC Heparin Sodium/ Sodium Chloride 60 unit 1X ONCE IV Last administered on 12:21; Start 07/09/16 at 11:45; Stop 07/09/16 at 11:51; Status DC Heparin Sodium (Porcine) (Heparin Sodium) 2,500 unit 1X ONCE INT CAT Last administered on 07/09/16 12:21; Start 07/09/16 at 11:45; Stop 07/09/16 at 11:51 ; Status DC Lidocaine/Sodium Bicarbonate (Buffered Lidocaine 1%) 3 ml 1X ONCE IJ Last administered on 07/09/16 12:20; Start 07/09/16 at 11:45; Stop 07/09/16 at 11:51 ; Status DC Methylprednisolone Acetate (Depo-Medrol 40mg Vial) 40 mg 1X ONCE IM ; Start at 14:45; Stop 07/09/16 at 14:59; Status DC Bupivacaine HCl 10 ml 10 ml 1X ONCE IJ ; Start 07/09/16 at 14:45; Stop at 14:59; Status DC Sodium Chloride 1,000 ml @ 1,000 mls/hr Q1H PRN IV hypotension; Start 07/09/16 at 15:15; Stop 07/09/16 at 21:14; Status DC Albumin Human (Albuminar) 200 ml @ 200 mls/hr 1X PRN PRN IV Hypotension; Start 07/09/16 at 15:15; Stop 07/09/16 at 21:14; Status DC Acetaminophen (Tylenol) 500 mg 1X PRN PRN PO MILD PAIN / TEMP; Start 07/09/16 at 15:15; Stop 07/10/16 at 15:14; Status DC Diphenhydramine HCl (Benadryl) 25 mg 1X PRN PRN IV ITCHING; Start 07/09/16 at 15:15; Stop 07/10/16 at 15:14; Status DC Diphenhydramine HCl (Benadryl) 25 mg 1X PRN PRN IV ITCHING; Start 07/09/16 at 15:15; Stop 07/10/16 at 15:14; Status DC Labetalol HCl (Normodyne) 10 mg PRN Q1HR PRN IVP SBP > 180; Start 07/09/16 at 15:15; Stop 07/10/16 at 15:14; Status DC Clonidine HCl (Catapres) 0.1 mg 1X PRN PRN PO SBP > 180; Start 07/09/16 at 15: 15; Stop 07/10/16 at 15:14; Status DC Info (PHARMACY MONITORING -- do not chart) 1 each PRN DAILY PRN MC SEE COMMENTS ; Start 07/09/16 at 15:15; Status Cancel Vancomycin HCl 1 each 1 each 1X ONCE MC ; Start 07/11/16 at 06:00; Stop at 06:01; Status DC Sodium Chloride (Iv Sodium Chloride 0.9% 1000ml Bag) 1,000 ml @ 1,000 mls/hr Q1H PRN IV hypotension; Start 07/10/16 at 10:45; Stop 07/10/16 at 16:44; Status DC Sodium Chloride (Normal Saline Flush) 10 ml 1X PRN PRN IV AP catheter pack; Start 07/10/16 at 10:45; Stop 07/11/16 at 10:44; Status DC Sodium Chloride (Normal Saline Flush) 10 ml 1X PRN PRN IV [employer] catheter pack; Start 07/10/16 at 10:45; Stop 07/11/16 at 10:44; Status DC Info (PHARMACY MONITORING -- do not chart) 1 each PRN DAILY PRN MC SEE COMMENTS ; Start 07/10/16 at 10:45; Stop 07/10/16 at 14:25; Status DC Info 1 each 1 each PRN DAILY PRN MC SEE COMMENTS; Start 07/10/16 at 10:45; Status Cancel Lactated Ringer's 1,000 ml @ 50 mls/hr Q20H IV ; Start 07/13/16 at 07:00; Stop 07/13/16 at 18:59; Status Cancel Vancomycin HCl 500 mg/Sodium Chloride 100 ml @ 100 mls/hr 1X ONCE IV Last administered on 07/11/16t 18:00; Start 07/11/16 at 18:00; Stop 07/11/16 at 18:59 ; Status DC Sodium Chloride 1,000 ml @ 1,000 mls/hr Q1H PRN IV hypotension; Start 07/13/16 at 08:26; Stop 07/13/16 at 14:25; Status DC Albumin Human (Albuminar) 200 ml @ 200 mls/hr 1X PRN PRN IV Hypotension; Start 07/13/16 at 08:30; Stop 07/13/16 at 14:29; Status DC Midodrine (Proamatine) 5 mg 1X ONCE PO ; Start 07/13/16 at 08:30; Stop at 08:35; Status DC Acetaminophen (Tylenol) 500 mg 1X PRN PRN PO MILD PAIN / TEMP; Start 07/13/16 at 08:30; Stop 07/14/16 at 08:29; Status DC Diphenhydramine HCl (Benadryl) 25 mg 1X PRN PRN IV ITCHING; Start 07/13/16 at 08:30; Stop 07/14/16 at 08:29; Status DC Diphenhydramine HCl (Benadryl) 25 mg 1X PRN PRN IV ITCHING; Start 07/13/16 at 08:30; Stop 07/14/16 at 08:29; Status DC Labetalol HCl (Normodyne) 10 mg PRN Q1HR PRN IVP SBP > 180; Start 07/13/16 at 08:30; Stop 07/14/16 at 08:29; Status DC Clonidine HCl 0.1 mg 0.1 mg 1X PRN PRN PO SBP > 180; Start 07/13/16 at 08:30; Stop 07/14/16 at 08:29; Status DC Sodium Chloride (Iv Sodium Chloride 0.9% 1000ml Bag) 1,000 ml @ 400 mls/hr Q2H30M PRN IV PATENCY; Start 07/13/16 at 08:26; Stop 07/13/16 at 20:25; Status DC Info 1 each 1 each PRN DAILY PRN MC SEE COMMENTS; Start 07/13/16 at 08:30 Sodium Chloride 1,000 ml @ 0 mls/hr Q0M IV Last administered on 07/13/16t 12: 39; Start 07/13/16 at 12:15 Propofol (Diprivan) 40 ml @ As Directed STK-MED ONCE IV ; Start 07/13/16 at 12: 27; Stop 07/13/16 at 12:28; Status DC Lidocaine HCl (Xylocaine-Mpf 1% Vial) 5 ml STK-MED ONCE .ROUTE ; Start 07/13/16 at 12:27; Stop 07/13/16 at 12:28; Status DC Lidocaine HCl (Viscous Lidocaine) 15 ml STK-MED ONCE .ROUTE ; Start 07/13/16 at 12:28; Stop 07/13/16 at 12:29; Status DC Benzocaine (Hurricaine One) 1 spray STK-MED ONCE .ROUTE ; Start 07/13/16 at 12: 28; Stop 07/13/16 at 12:29; Status DC Lidocaine HCl 30 stephan 30 stephan STK-MED ONCE TP ; Start 07/13/16 at 12:28; Stop at 12:29; Status DC Vancomycin HCl/ Sodium Chloride (Iv Sodium Chloride 0.9% 100ml) 100 ml @ 100 mls/hr 1X ONCE IV Last administered on 07/13/16t 16:00; Start 07/13/16 at 16: 00; Stop 07/13/16 at 16:59; Status DC Active Scripts Active Reported Amiodarone Hcl 200 Mg Tablet 200 Mg PO BID Aspir 81 (Aspirin) 81 Mg Tablet.dr 81 Mg PO DAILY Atorvastatin Calcium 20 Mg Tablet 20 Mg PO HS Cardizem Cd (Diltiazem Hcl) 360 Mg Cap.er.24h 360 Mg PO DAILY Docusate Sodium 100 Mg Capsule 100 Mg PO BID Melatonin 3 Mg Tablet 9 Mg PO DAILY Polyethylene Glycol 3350 17 Gm Powd.pack 17 Gm PO DAILY Senna (Sennosides) 8.6 Mg Tablet 8.6 Mg PO DAILY Clonidine Hcl 0.2 Mg Tablet 0.2 Mg PO DAILY Micro-Guard (Miconazole Nitrate) 85 Gm Powder 85 Gm TP BID Humalog (Insulin Lispro) 100 Unit/1 Ml Vial 100 Unit SQ Buspirone Hcl 5 Mg Tablet 5 Mg PO TID Aranesp Vial (Darbepoetin Naif In Polysorbat) 100 Mcg/1 Ml Vial 100 Mcg SQ WEEKLY Nephron Fa Tablet (Fe Fumarate/Dinorah/Fa/Bcomp&C) 1 Each Tablet 1 Each PO DAILY Ferrous Sulfate 325 Mg Tablet 1 Tab PO DAILY Escitalopram Oxalate 20 Mg Tablet 20 Mg PO DAILY Duoneb 0.5-3(2.5) Mg/3 Ml (Albuterol/Ipratropium) 3 Ml Ampul.neb 3 Ml NEB QID PRN Gabapentin 600 Mg Tablet 600 Mg PO BID Mirtazapine 7.5 Mg Tablet 7.5 Mg PO DAILY Abilify (Aripiprazole) 2 Mg Tablet 2.5 Mg PO DAILY Labetalol Hcl 5 Mg/1 Ml Vial 10 Mg IV PRN Heparin Sod 5,000 Unit/ 0.5 Ml (Heparin Sodium,Porcine/Pf) 5,000 Unit/0.5 Ml Vial 5,000 Unit IJ TID Novolin N (Nph, Human Insulin Isophane) 100 Unit/1 Ml Vial 100 Unit SQ PRN Vitals/I & O Vital Sign - Last 24 Hours 07/13/16 07/13/16 07/13/16 07/13/16 12:37 13:21 13:21 13:36 Temp 97.6 97.6 97.6 97.6 97.6 97.6 Pulse 74 75 80 Resp B/P 137/58 132/51 114/55 Pulse Ox 99 99 99 O2 Delivery Nasal Cannula Nasal Cannula Nasal Cannula Nasal Cannula O2 Flow Rate 2.0 2.0 2.0 2.0 07/13/16 07/13/16 07/13/16 07/13/16 13:51 15:00 16:14 16:14 Temp 97.6 98.3 97.6 98.3 Pulse 79 79 79 79 Resp 15 20 B/P 121/65 138/55 138/55 138/55 Pulse Ox 99 97 O2 Delivery Nasal Cannula Nasal Cannula O2 Flow Rate 2.0 2.0 4/17/17 4/17/17 4/17/17 4/17/17 16:14 19:19 20:00 22:42 Temp 97.8 97.8 Pulse 79 73 Resp 18 18 B/P 138/55 129/51 Pulse Ox 92 92 O2 Delivery Nasal Cannula Nasal Cannula Nasal Cannula O2 Flow Rate 2.0 2.0 2.0 07/13/16 07/13/16 07/13/16 07/13/16 22:42 22:43 23:00 23:42 Temp 97.6 97.6 Pulse 73 91 Resp 18 20 B/P 129/51 146/59 Pulse Ox 92 91 92 O2 Delivery Nasal Cannula Nasal Cannula Nasal Cannula O2 Flow Rate 2.0 2.0 2.0 07/13/16 07/14/16 07/14/16 23:42 03:00 07:00 Temp 98.2 98.0 98.2 98.0 Pulse 98 64 Resp 20 16 B/P 147/63 133/46 Pulse Ox 92 93 94 O2 Delivery Nasal Cannula Nasal Cannula Room Air O2 Flow Rate 2.0 2.0 Intake and Output 07/13/16 07/13/16 07/14/16 15:00 23:00 07:00 Intake Total 100 ml 360 ml Balance 100 ml 360 ml Problem List Problems Medical Problems: (1) Anemia Status: Acute (2) End stage renal disease Status: Acute (3) Generalized weakness Status: Acute (4) Healthcare-associated pneumonia Status: Acute (5) Sepsis Status: Acute (6) Transient hypotension Status: Acute (7) Urinary tract infection Status: Acute Assessment Has been stable GI-gandara. Plan of Care: Continue current Tx, Mgmt Plan of Care Note Will follow peripherally. JOSE MANUEL VASQUEZ MD Jul 14, 2016 09:23
[2016-07-14] MEDS: INSULIN ASPART 300 UNITS/3 ML INSULN.PEN SQ SCH ×4 (09:26→17:30)
--- NOTE | 2016-07-14 09:27 | PDOC ---
PULMONARY PROGRESS NOTES Subjective not more soa Vitals Vital Signs Date Time Temp Pulse Resp B/P Pulse Ox O2 Delivery O2 Flow Rate FiO2 07/14/16 07:00 98.0 64 16 133/46 94 Room Air 98.0 07/14/16 03:00 2.0 ROS: No Nausea, No Chest Pain, No Abdominal Pain, No Increase Cough General: Alert, No acute distress Lungs: Crackles, Other (No chest retractions were present) Cardiovascular: S1, S2 Abdomen: Soft, Non-tender Neuro Exam: Alert Extremities: No Edema Skin: Warm Labs Laboratory Tests Test 07/12/16 11:21 07/12/16 17:11 07/13/16 10:46 07/13/16 17:32 Glucose (Fingerstick) 290mg/dL (70-99) 252mg/dL (70-99) 274mg/dL (70-99) White Blood Count 6.9x10^3/uL (4.0-11.0) Red Blood Count 4.03x10^6/uL (3.50-5.40) Hemoglobin 10.7g/dL (12.0-15.5) Hematocrit 33.0% (36.0-47.0) Mean Corpuscular Volume 82fL (79-100) Mean Corpuscular Hemoglobin 27pg (25-35) Mean Corpuscular Hemoglobin Concent 33g/dL (31-37) Red Cell Distribution Width 16.0% (11.5-14.5) Platelet Count 234x10^3/uL (140-400) Neutrophils (%) (Auto) 85% (31-73) Lymphocytes (%) (Auto) 8% (24-48) Monocytes (%) (Auto) 5% (0-9) Eosinophils (%) (Auto) 2% (0-3) Basophils (%) (Auto) 1% (0-3) Neutrophils # (Auto) 5.8x10^3uL (1.8-7.7) Lymphocytes # (Auto) 0.5x10^3/uL (1.0-4.8) Monocytes # (Auto) 0.3x10^3/uL (0.0-1.1) Eosinophils # (Auto) 0.1x10^3/uL (0.0-0.7) Basophils # (Auto) 0.1x10^3/uL (0.0-0.2) Test 07/14/16 04:10 07/14/16 08:33 White Blood Count 7.2x10^3/uL (4.0-11.0) Red Blood Count 3.80x10^6/uL (3.50-5.40) Hemoglobin 10.1g/dL (12.0-15.5) Hematocrit 31.3% (36.0-47.0) Mean Corpuscular Volume 83fL (79-100) Mean Corpuscular Hemoglobin 27pg (25-35) Mean Corpuscular Hemoglobin Concent 32g/dL (31-37) Red Cell Distribution Width 16.0% (11.5-14.5) Platelet Count 237x10^3/uL (140-400) Neutrophils (%) (Auto) 88% (31-73) Lymphocytes (%) (Auto) 6% (24-48) Monocytes (%) (Auto) 5% (0-9) Eosinophils (%) (Auto) 1% (0-3) Basophils (%) (Auto) 0% (0-3) Neutrophils # (Auto) 6.3x10^3uL (1.8-7.7) Lymphocytes # (Auto) 0.5x10^3/uL (1.0-4.8) Monocytes # (Auto) 0.3x10^3/uL (0.0-1.1) Eosinophils # (Auto) 0.0x10^3/uL (0.0-0.7) Basophils # (Auto) 0.0x10^3/uL (0.0-0.2) Segmented Neutrophils % 87% (35-66) Band Neutrophils % 1% (0-9) Lymphocytes % 5% (24-48) Monocytes % 3% (0-10) Eosinophils % 4% (0-5) Platelet Estimate Adequate (ADEQUATE) Sodium Level 131mmol/L (136-145) Potassium Level 4.3mmol/L (3.5-5.1) Chloride Level 95mmol/L (98-107) Carbon Dioxide Level 27mmol/L (21-32) Anion Gap 9 (6-14) Blood Urea Nitrogen 48mg/dL (7-20) Creatinine 4.9mg/dL (0.6-1.0) Estimated GFR (Cockcroft-Gault) 9.1 BUN/Creatinine Ratio 10 (6-20) Glucose Level 368mg/dL (70-99) Calcium Level 7.6mg/dL (8.5-10.1) Phosphorus Level 6.2mg/dL (2.6-4.7) Magnesium Level 2.1mg/dL (1.8-2.4) Total Bilirubin 0.8mg/dL (0.2-1.0) Aspartate Amino Transf (AST/SGOT) 39U/L (15-37) Alanine Aminotransferase (ALT/SGPT) 32U/L (14-59) Alkaline Phosphatase 278U/L (46-116) Total Protein 6.9g/dL (6.4-8.2) Albumin 1.7g/dL (3.4-5.0) Albumin/Globulin Ratio 0.3 (1.0-1.7) Glucose (Fingerstick) 332mg/dL (70-99) Laboratory Tests Test 07/13/16 10:46 07/13/16 17:32 07/14/16 04:10 07/14/16 08:33 White Blood Count 6.9x10^3/uL (4.0-11.0) 7.2x10^3/uL (4.0-11.0) Red Blood Count 4.03x10^6/uL (3.50-5.40) 3.80x10^6/uL (3.50-5.40) Hemoglobin 10.7g/dL (12.0-15.5) 10.1g/dL (12.0-15.5) Hematocrit 33.0% (36.0-47.0) 31.3% (36.0-47.0) Mean Corpuscular Volume 82fL (79-100) 83fL (79-100) Mean Corpuscular Hemoglobin 27pg (25-35) 27pg (25-35) Mean Corpuscular Hemoglobin Concent 33g/dL (31-37) 32g/dL (31-37) Red Cell Distribution Width 16.0% (11.5-14.5) 16.0% (11.5-14.5) Platelet Count 234x10^3/uL (140-400) 237x10^3/uL (140-400) Neutrophils (%) (Auto) 85% (31-73) 88% (31-73) Lymphocytes (%) (Auto) 8% (24-48) 6% (24-48) Monocytes (%) (Auto) 5% (0-9) 5% (0-9) Eosinophils (%) (Auto) 2% (0-3) 1% (0-3) Basophils (%) (Auto) 1% (0-3) 0% (0-3) Neutrophils # (Auto) 5.8x10^3uL (1.8-7.7) 6.3x10^3uL (1.8-7.7) Lymphocytes # (Auto) 0.5x10^3/uL (1.0-4.8) 0.5x10^3/uL (1.0-4.8) Monocytes # (Auto) 0.3x10^3/uL (0.0-1.1) 0.3x10^3/uL (0.0-1.1) Eosinophils # (Auto) 0.1x10^3/uL (0.0-0.7) 0.0x10^3/uL (0.0-0.7) Basophils # (Auto) 0.1x10^3/uL (0.0-0.2) 0.0x10^3/uL (0.0-0.2) Glucose (Fingerstick) 274mg/dL (70-99) 332mg/dL (70-99) Segmented Neutrophils % 87% (35-66) Band Neutrophils % 1% (0-9) Lymphocytes % 5% (24-48) Monocytes % 3% (0-10) Eosinophils % 4% (0-5) Platelet Estimate Adequate (ADEQUATE) Sodium Level 131mmol/L (136-145) Potassium Level 4.3mmol/L (3.5-5.1) Chloride Level 95mmol/L (98-107) Carbon Dioxide Level 27mmol/L (21-32) Anion Gap 9 (6-14) Blood Urea Nitrogen 48mg/dL (7-20) Creatinine 4.9mg/dL (0.6-1.0) Estimated GFR (Cockcroft-Gault) 9.1 BUN/Creatinine Ratio 10 (6-20) Glucose Level 368mg/dL (70-99) Calcium Level 7.6mg/dL (8.5-10.1) Phosphorus Level 6.2mg/dL (2.6-4.7) Magnesium Level 2.1mg/dL (1.8-2.4) Total Bilirubin 0.8mg/dL (0.2-1.0) Aspartate Amino Transf (AST/SGOT) 39U/L (15-37) Alanine Aminotransferase (ALT/SGPT) 32U/L (14-59) Alkaline Phosphatase 278U/L (46-116) Total Protein 6.9g/dL (6.4-8.2) Albumin 1.7g/dL (3.4-5.0) Albumin/Globulin Ratio 0.3 (1.0-1.7) Medications Active Scripts Medications Dose Route/Sig Days Date Category Amiodarone Hcl 200 Mg Tablet 200 Mg PO BID 08/28/15 Reported Aspir 81 (Aspirin) 81 Mg Tablet.dr 81 Mg PO DAILY 08/28/15 Reported Atorvastatin Calcium 20 Mg Tablet 20 Mg PO HS 08/28/15 Reported Cardizem Cd (Diltiazem Hcl) 360 Mg Cap.er.24h 360 Mg PO DAILY 08/28/15 Reported Docusate Sodium 100 Mg Capsule 100 Mg PO BID 08/28/15 Reported Melatonin 3 Mg Tablet 9 Mg PO DAILY 08/28/15 Reported Polyethylene Glycol 3350 17 Gm Powd.pack 17 Gm PO DAILY 08/28/15 Reported Senna (Sennosides) 8.6 Mg Tablet 8.6 Mg PO DAILY 08/28/15 Reported Clonidine Hcl 0.2 Mg Tablet 0.2 Mg PO DAILY 08/28/15 Reported Micro-Guard (Miconazole Nitrate) 85 Gm Powder 85 Gm TP BID 08/28/15 Reported Humalog (Insulin Lispro) 100 Unit/1 Ml Vial 100 Unit SQ 08/28/15 Reported Buspirone Hcl 5 Mg Tablet 5 Mg PO TID 08/28/15 Reported Aranesp Vial (Darbepoetin Naif In Polysorbat) 100 Mcg/1 Ml Vial 100 Mcg SQ WEEKLY 08/28/15 Reported Nephron Fa Tablet (Fe Fumarate/Dinorah/Fa/Bcomp&C) 1 Each Tablet 1 Each PO DAILY 08/28/15 Reported Ferrous Sulfate 325 Mg Tablet 1 Tab PO DAILY 08/28/15 Reported Escitalopram Oxalate 20 Mg Tablet 20 Mg PO DAILY 08/28/15 Reported Duoneb 0.5-3(2.5) Mg/3 Ml (Albuterol/Ipratropium) 3 Ml Ampul.neb 3 Ml NEB QID PRN 08/28/15 Reported Gabapentin 600 Mg Tablet 600 Mg PO BID 08/28/15 Reported Mirtazapine 7.5 Mg Tablet 7.5 Mg PO DAILY 08/28/15 Reported Abilify (Aripiprazole) 2 Mg Tablet 2.5 Mg PO DAILY 08/28/15 Reported Labetalol Hcl 5 Mg/1 Ml Vial 10 Mg IV PRN 08/28/15 Reported Heparin Sod 5,000 Unit/ 0.5 Ml (Heparin Sodium,Porcine/Pf) 5,000 Unit/0.5 Ml Vial 5,000 Unit IJ TID 08/28/15 Reported Novolin N (Nph, Human Insulin Isophane) 100 Unit/1 Ml Vial 100 Unit SQ PRN 05/31/13 Reported Impression . 1. Acute respiratory failure, suspect sepsis. 2. Sepsis secondary to urinary tract infection. 3. Possible obstructive sleep apnea. 4. End-stage renal disease, noncompliant. 5. Type 2 diabetes. 6. Depression. 7. Hyperlipidemia. 8 .Bacteremia Plan . continue the same .resp status is compensated TO with possible thrombus related to catheter 1. Continue antibiotics per ID 2. outpatient polysomnogram 3. Continue home meds. 4. follow nephro input, 5. follow Gi input ЕКАТЕРИНА SU MD Jul 14, 2016 09:27
--- NOTE | 2016-07-14 09:47 | PDOC ---
SUBJECTIVE ROS ESRD Doign and feeling much better - complaining about dietary restriction CVS: no Orthopnea, no CP RESP: no SOB, no MEDEIROS GI: no Nausea, no Vomiting : no Dysuria, no Urgency OBJECTIVE Vital Signs Vital Signs Date Time Temp Pulse Resp B/P Pulse Ox O2 Delivery O2 Flow Rate FiO2 07/14/16 09:13 98 133/46 07/14/16 07:00 98.0 16 94 Room Air 98.0 07/14/16 03:00 2.0 I & 0 Intake and Output 07/14/16 07:00 Intake Total 460 ml Balance 460 ml Intake Oral 360 ml IV Total 100 ml # Voids 5 # Bowel Movements 3 PHYSICAL EXAM Physical Exam GEN: Awake, Oriented x 3, In no distress EYES: Vision Unchanged, Conjunctiva Normal EN: No EN Drainage, Mucous Membranes moist NECK: no JVD, no JVP, Supple, no Thyromegaly CVS: S1S2, ? Murmur, No Gallop, No Rub,tr Edema RESP: no Rales, no Rhonchi,no Acc. Muscle Use GI: BS + ve, NO Bruit, Non Tender, Non Distended - Obese : no CVA tenderness, no Suprapubic Tenderness DIAGNOSIS/ASSESSMENT Assessment & Plan ESRD: Current fluid and E-lyte status does not necessitate emergent need for dialysis. Will re-evaluate for dialysis in the am and continue on MWF schedule. ANEMIA; Aranesp as ordered, Transfuse with next HD as needed HTN: Current BP meds as reviewed. See orders for changes. ^Phos - Add binders hypoAlbuminemia - ? due to Infection - IV ALb to correct NA also - may need to liberalize diet Cath infection - will consult Vasc Surgery for P/Cath and AV Access creation Low Na - watch trend and attempt to correct with HD, may need stricter fluid restriction; On Soft GI Diet currently HD Cath related Thrombus - ? timing of placement of New P/Cath Discussed Plan of Care with pt jamarcus re AV Access at bedside and she agrees to proceed with creation of one. Problems: COMMENT/RELEVANT DATA Meds Current Medications Medications (Trade) Dose Ordered Sig/Gi Start Time Stop Time Status Last Admin Dose Admin Acetaminophen (Tylenol) 500 mg 1X PRN PRN 07/13/16 08:30 07/14/16 08:29 DC Acetaminophen 650 mg 650 mg PRN Q4HRS PRN 07/06/16 14:30 07/07/16 14:29 DC 07/07/16 05:17 650 MG Acetaminophen/ Hydrocodone Bitart (Lortab 5/325) 1 tab PRN Q4HRS PRN 07/08/16 09:30 07/13/16 22:42 1 TAB Albumin Human (Albuminar) 200 ml @ 200 mls/hr 1X PRN PRN 07/13/16 08:30 07/13/16 14:29 DC Albuterol/ Ipratropium (Duoneb) 3 ml PRN QID PRN 07/08/16 14:45 Amiodarone HCl (Cordarone) 200 mg BID 07/08/16 21:00 07/14/16 09:13 200 MG Aripiprazole (Abilify) 2.5 mg DAILY 07/09/16 09:00 07/14/16 09:19 2.5 MG Aspirin (Ecotrin) 81 mg DAILY 07/08/16 15:00 07/14/16 09:10 81 MG Atorvastatin Calcium (Lipitor) 20 mg HS 07/08/16 21:00 07/13/16 22:42 20 MG Benzocaine (Hurricaine One) 1 spray STK-MED ONCE 07/13/16 12:28 07/13/16 12:29 DC Bupivacaine HCl (Sensorcaine-Mpf 0.25%) 10 ml 1X ONCE 07/09/16 14:45 07/09/16 14:59 DC Buspirone HCl (Buspar) 5 mg TID 07/08/16 15:00 07/14/16 09:09 5 MG Clonidine HCl (Catapres) 0.1 mg 1X PRN PRN 07/09/16 15:15 07/10/16 15:14 DC Clonidine HCl 0.1 mg 0.1 mg 1X PRN PRN 07/13/16 08:30 07/14/16 08:29 DC Darbepoetin Naif 60 mcg 60 mcg WEEKLYHS 07/06/16 21:00 07/13/16 22:41 60 MCG Diltiazem HCl (Cardizem 24hr Cd) 360 mg DAILY 07/09/16 09:00 07/14/16 09:12 360 MG Diphenhydramine HCl (Benadryl) 25 mg 1X PRN PRN 07/13/16 08:30 07/14/16 08:29 DC Docusate Sodium (Colace) 100 mg BID 07/08/16 21:00 07/13/16 22:41 100 MG Escitalopram Oxalate (Lexapro) 20 mg DAILY 07/09/16 09:00 07/14/16 09:11 20 MG Ferrous Sulfate (Feosol) 325 mg DAILY 07/09/16 09:00 07/14/16 09:12 325 MG Gabapentin (Neurontin) 600 mg BID 07/08/16 21:00 07/14/16 09:12 600 MG Heparin Sodium (Porcine) (Heparin Sodium) 2,500 unit 1X ONCE 07/09/16 11:45 07/09/16 11:51 DC 07/09/16 12:21 2,500 UNIT Heparin Sodium/ Sodium Chloride 60 unit 1X ONCE 07/09/16 11:45 07/09/16 11:51 DC 07/09/16 12:21 60 UNIT Info (PHARMACY MONITORING -- do not chart) 1 each PRN DAILY PRN 07/09/16 15:15 Cancel Info 1 each 1 each PRN DAILY PRN 07/13/16 08:30 Insulin Aspart (Novolog) 10 units TIDAC 07/08/16 16:30 07/14/16 09:26 10 UNITS Labetalol HCl (Normodyne) 10 mg PRN Q1HR PRN 07/13/16 08:30 07/14/16 08:29 DC Lactated Ringer's 1,000 ml @ 50 mls/hr Q20H 07/13/16 07:00 07/13/16 18:59 Cancel Levofloxacin/ Dextrose (LEVAQUIN 500mg PREMIX) 100 ml @ 100 mls/hr Q48H 07/06/16 15:00 07/08/16 09:55 DC 07/06/16 17:36 100 MLS/HR Levofloxacin/ Dextrose 1 each 1 each PRN DAILY PRN 07/06/16 14:00 07/08/16 09:55 DC Lidocaine HCl (Viscous Lidocaine) 15 ml STK-MED ONCE 07/13/16 12:28 07/13/16 12:29 DC Lidocaine HCl (Xylocaine-Mpf 1% Vial) 5 ml STK-MED ONCE 07/13/16 12:27 07/13/16 12:28 DC Lidocaine HCl 30 stephan 30 stephan STK-MED ONCE 07/13/16 12:28 07/13/16 12:29 DC Lidocaine/Sodium Bicarbonate (Buffered Lidocaine 1%) 3 ml 1X ONCE 07/09/16 11:45 07/09/16 11:51 DC 07/09/16 12:20 3 ML Methylprednisolone Acetate (Depo-Medrol 40mg Vial) 40 mg 1X ONCE 07/09/16 14:45 07/09/16 14:59 DC Midodrine (Proamatine) 5 mg 1X ONCE 07/13/16 08:30 07/13/16 08:35 DC Mirtazapine (Remeron) 7.5 mg DAILY 07/09/16 09:00 07/14/16 09:13 7.5 MG Morphine Sulfate 2 mg PRN Q2HR PRN 07/06/16 14:30 07/07/16 14:29 DC Non-Formulary Medication 9 mg DAILY 07/09/16 09:00 UNV Nystatin (Nystop) 1 stephan BID 07/08/16 21:00 Cancel Ondansetron HCl (Zofran) 4 mg PRN Q8HRS PRN 07/06/16 14:30 07/07/16 14:29 DC Oxycodone HCl (Roxicodone) 5 mg PRN Q4HRS PRN 07/07/16 18:00 07/07/16 18:38 DC Piperacillin Sod/ Tazobactam Sod (Zosyn Per Pharmacy) 1 each PRN DAILY PRN 07/06/16 14:00 07/08/16 09:55 DC Piperacillin Sod/ Tazobactam Sod 2.25 gm/Sodium Chloride 50 ml @ 100 mls/hr Q8HRS 07/06/16 15:00 07/08/16 09:55 DC 07/08/16 05:17 100 MLS/HR Polyethylene Glycol (miraLAX PACKET) 17 gm DAILY 07/09/16 09:00 07/11/16 09:00 17 GM Propofol (Diprivan) 40 ml @ As Directed STK-MED ONCE 07/13/16 12:27 07/13/16 12:28 DC Sennosides (Senna) 8.6 mg DAILY 07/09/16 09:00 07/10/16 14:45 8.6 MG Sodium Chloride 1,000 ml @ 0 mls/hr Q0M 07/13/16 12:15 07/13/16 12:39 50 MLS/HR Sodium Chloride (Iv Sodium Chloride 0.9% 500ml Bag) 500 ml @ 1,000 mls/hr 1X ONCE 07/06/16 12:45 07/06/16 13:14 DC 07/06/16 13:33 1,000 MLS/HR Sodium Chloride (Iv Sodium Chloride 0.9% 1000ml Bag) 1,000 ml @ 400 mls/hr Q2H30M PRN 07/13/16 08:26 07/13/16 20:25 DC Sodium Chloride (Normal Saline Flush) 10 ml 1X PRN PRN 07/10/16 10:45 07/11/16 10:44 DC Sodium Chloride 10 ml 10 ml 1X PRN PRN 07/10/16 10:45 07/11/16 10:44 DC Tramadol HCl (Ultram) 50 mg PRN Q6HRS PRN 07/07/16 18:45 07/13/16 22:43 50 MG Vancomycin HCl (Vanco Per Pharmacy) 1 each PRN DAILY PRN 07/06/16 14:00 07/13/16 13:51 1 EACH Vancomycin HCl 500 mg/Sodium Chloride 100 ml @ 100 mls/hr 1X ONCE 07/11/16 18:00 07/11/16 18:59 DC 07/11/16 18:00 100 MLS/HR Vancomycin HCl/ Sodium Chloride (Iv Sodium Chloride 0.9% 100ml) 100 ml @ 100 mls/hr 1X ONCE 07/13/16 16:00 07/13/16 16:59 DC 07/13/16 16:00 100 MLS/HR Vancomycin HCl/ Sodium Chloride (Iv Sodium Chloride 0.9% 250ml) 250 ml @ 250 mls/hr 1X ONCE 07/07/16 06:30 07/07/16 07:29 DC 07/07/16 06:36 250 MLS/HR Vancomycin HCl/ Sodium Chloride (Iv Sodium Chloride 0.9% 500ml Bag) 500 ml @ 250 mls/hr 1X ONCE 07/06/16 14:15 07/06/16 16:14 DC 07/06/16 15:03 250 MLS/HR Vitamin B Complex/ Vitamin C (Zoe-Kiran) 1 tab DAILY 07/09/16 09:00 07/14/16 09:08 1 TAB Lab Laboratory Tests Test 07/13/16 10:46 07/13/16 17:32 07/14/16 04:10 07/14/16 08:33 White Blood Count 6.9x10^3/uL (4.0-11.0) 7.2x10^3/uL (4.0-11.0) Red Blood Count 4.03x10^6/uL (3.50-5.40) 3.80x10^6/uL (3.50-5.40) Hemoglobin 10.7g/dL (12.0-15.5) 10.1g/dL (12.0-15.5) Hematocrit 33.0% (36.0-47.0) 31.3% (36.0-47.0) Mean Corpuscular Volume 82fL (79-100) 83fL (79-100) Mean Corpuscular Hemoglobin 27pg (25-35) 27pg (25-35) Mean Corpuscular Hemoglobin Concent 33g/dL (31-37) 32g/dL (31-37) Red Cell Distribution Width 16.0% (11.5-14.5) 16.0% (11.5-14.5) Platelet Count 234x10^3/uL (140-400) 237x10^3/uL (140-400) Neutrophils (%) (Auto) 85% (31-73) 88% (31-73) Lymphocytes (%) (Auto) 8% (24-48) 6% (24-48) Monocytes (%) (Auto) 5% (0-9) 5% (0-9) Eosinophils (%) (Auto) 2% (0-3) 1% (0-3) Basophils (%) (Auto) 1% (0-3) 0% (0-3) Neutrophils # (Auto) 5.8x10^3uL (1.8-7.7) 6.3x10^3uL (1.8-7.7) Lymphocytes # (Auto) 0.5x10^3/uL (1.0-4.8) 0.5x10^3/uL (1.0-4.8) Monocytes # (Auto) 0.3x10^3/uL (0.0-1.1) 0.3x10^3/uL (0.0-1.1) Eosinophils # (Auto) 0.1x10^3/uL (0.0-0.7) 0.0x10^3/uL (0.0-0.7) Basophils # (Auto) 0.1x10^3/uL (0.0-0.2) 0.0x10^3/uL (0.0-0.2) Glucose (Fingerstick) 274mg/dL (70-99) 332mg/dL (70-99) Segmented Neutrophils % 87% (35-66) Band Neutrophils % 1% (0-9) Lymphocytes % 5% (24-48) Monocytes % 3% (0-10) Eosinophils % 4% (0-5) Platelet Estimate Adequate (ADEQUATE) Sodium Level 131mmol/L (136-145) Potassium Level 4.3mmol/L (3.5-5.1) Chloride Level 95mmol/L (98-107) Carbon Dioxide Level 27mmol/L (21-32) Anion Gap 9 (6-14) Blood Urea Nitrogen 48mg/dL (7-20) Creatinine 4.9mg/dL (0.6-1.0) Estimated GFR (Cockcroft-Gault) 9.1 BUN/Creatinine Ratio 10 (6-20) Glucose Level 368mg/dL (70-99) Calcium Level 7.6mg/dL (8.5-10.1) Phosphorus Level 6.2mg/dL (2.6-4.7) Magnesium Level 2.1mg/dL (1.8-2.4) Total Bilirubin 0.8mg/dL (0.2-1.0) Aspartate Amino Transf (AST/SGOT) 39U/L (15-37) Alanine Aminotransferase (ALT/SGPT) 32U/L (14-59) Alkaline Phosphatase 278U/L (46-116) Total Protein 6.9g/dL (6.4-8.2) Albumin 1.7g/dL (3.4-5.0) Albumin/Globulin Ratio 0.3 (1.0-1.7) MESHA SIEGEL MD Jul 14, 2016 09:47
[2016-07-14] MEDS: HEPARIN PF for SUB-Q USE 5,000 UNIT/0.5 ML VIAL. SQ SCH ×3 (09:56→22:11)
--- NOTE | 2016-07-14 10:30 | PDOC ---
Infectious Disease Note Subjective Subjective Doing well ROS ROS GEN: Denies fevers, chills, sweats HEENT: Denies blurred vision, sore throat CV: Denies chest pain RESP: Denies shortness of air, cough GI: Denies n/v/d NEURO: Denies confusion, dizziness MSK: Denies weakness, joint pain/swelling Vital Sign Vital Signs Vital Signs Date Time Temp Pulse Resp B/P Pulse Ox O2 Delivery O2 Flow Rate FiO2 07/14/16 09:13 98 133/46 07/14/16 08:00 Nasal Cannula 2.0 07/14/16 07:00 98.0 16 94 98.0 Physical Exam PHYSICAL EXAM GENERAL: NAD, Alert. in chair and eating HEENT: PERRL, NECK: Supple, no JVD, no LN LUNGS: Clear HEART: S1S2, no gallop, no murmur ABD: Soft, NT, no organomegaly, no rebound EXT: Trace edema, no cyanosis CUSHION SEWER: Alert, oriented x 3, no focal neurologic deficit SKIN: No rash IV: Left - clean Labs Lab Laboratory Tests Test 07/13/16 10:46 07/13/16 17:32 07/14/16 04:10 07/14/16 08:33 White Blood Count 6.9x10^3/uL (4.0-11.0) 7.2x10^3/uL (4.0-11.0) Red Blood Count 4.03x10^6/uL (3.50-5.40) 3.80x10^6/uL (3.50-5.40) Hemoglobin 10.7g/dL (12.0-15.5) 10.1g/dL (12.0-15.5) Hematocrit 33.0% (36.0-47.0) 31.3% (36.0-47.0) Mean Corpuscular Volume 82fL (79-100) 83fL (79-100) Mean Corpuscular Hemoglobin 27pg (25-35) 27pg (25-35) Mean Corpuscular Hemoglobin Concent 33g/dL (31-37) 32g/dL (31-37) Red Cell Distribution Width 16.0% (11.5-14.5) 16.0% (11.5-14.5) Platelet Count 234x10^3/uL (140-400) 237x10^3/uL (140-400) Neutrophils (%) (Auto) 85% (31-73) 88% (31-73) Lymphocytes (%) (Auto) 8% (24-48) 6% (24-48) Monocytes (%) (Auto) 5% (0-9) 5% (0-9) Eosinophils (%) (Auto) 2% (0-3) 1% (0-3) Basophils (%) (Auto) 1% (0-3) 0% (0-3) Neutrophils # (Auto) 5.8x10^3uL (1.8-7.7) 6.3x10^3uL (1.8-7.7) Lymphocytes # (Auto) 0.5x10^3/uL (1.0-4.8) 0.5x10^3/uL (1.0-4.8) Monocytes # (Auto) 0.3x10^3/uL (0.0-1.1) 0.3x10^3/uL (0.0-1.1) Eosinophils # (Auto) 0.1x10^3/uL (0.0-0.7) 0.0x10^3/uL (0.0-0.7) Basophils # (Auto) 0.1x10^3/uL (0.0-0.2) 0.0x10^3/uL (0.0-0.2) Glucose (Fingerstick) 274mg/dL (70-99) 332mg/dL (70-99) Segmented Neutrophils % 87% (35-66) Band Neutrophils % 1% (0-9) Lymphocytes % 5% (24-48) Monocytes % 3% (0-10) Eosinophils % 4% (0-5) Platelet Estimate Adequate (ADEQUATE) Sodium Level 131mmol/L (136-145) Potassium Level 4.3mmol/L (3.5-5.1) Chloride Level 95mmol/L (98-107) Carbon Dioxide Level 27mmol/L (21-32) Anion Gap 9 (6-14) Blood Urea Nitrogen 48mg/dL (7-20) Creatinine 4.9mg/dL (0.6-1.0) Estimated GFR (Cockcroft-Gault) 9.1 BUN/Creatinine Ratio 10 (6-20) Glucose Level 368mg/dL (70-99) Calcium Level 7.6mg/dL (8.5-10.1) Phosphorus Level 6.2mg/dL (2.6-4.7) Magnesium Level 2.1mg/dL (1.8-2.4) Total Bilirubin 0.8mg/dL (0.2-1.0) Aspartate Amino Transf (AST/SGOT) 39U/L (15-37) Alanine Aminotransferase (ALT/SGPT) 32U/L (14-59) Alkaline Phosphatase 278U/L (46-116) Total Protein 6.9g/dL (6.4-8.2) Albumin 1.7g/dL (3.4-5.0) Albumin/Globulin Ratio 0.3 (1.0-1.7) Objective Assessment MRSA Sepsis. POA - no peripheral stigmata. $/15 neg so far. TO ? veg on HD cath -Positive BC 07/06, 07/08 Infected HDC catheter. MRSA -s/p placement temp [facility] HDC 07/09 -s/p removal [facility] HDC 07/07 Encephalopathy ESRD Obesity Steroid injection, 07/09 Plan Plan of Care Cont vanc Vascular eval F/u repeat BC D/w EDITH Nguyen MD Jul 14, 2016 10:30
[2016-07-14 11:00] VITALS: BP 138/60
--- NOTE | 2016-07-14 11:49 | RAD ---
Bilateral upper extremity vein mapping, 07/14/2016: History: AV fistula planning The basilic and cephalic veins in both upper extremities were evaluated as requested. On the right, the basilic vein is patent measuring 5.6 to 6.8 mm in diameter in the upper arm and 4.4 to 4.9 mm in diameter in the forearm. The right cephalic vein is patent measuring 2.9 to 3.8 mm in diameter in the upper arm and 1.1 to 1.6 mm in the forearm. On the left, the basilic vein is patent measuring 4.8 to 6.5 mm in diameter in the upper arm and 3.4 to 4.1 mm in diameter in the forearm. The left cephalic vein is patent measuring 3.3 to 4.0 mm in diameter in the upper arm and 2.7 to 3.8 mm in the forearm. IMPRESSION: Patent cephalic and basilic veins in both upper extremities with measurements as described above and fully delineated on the technologist worksheet available in the [employer] PACS system.
[2016-07-14] MEDS ORDERED: INSULIN DETEMIR 300 UNITS/3 ML INSULN.PEN. SQ SCH (12:00)
[2016-07-14] MEDS: CALCIUM ACETATE 667 MG CAPSULE PO SCH ×2 (12:00→17:08)
[2016-07-14] MEDS: ALBUMIN HUMAN 25% 100 ML IV SCH ×3 (12:14→22:07)
--- NOTE | 2016-07-14 12:58 | PDOC ---
PROGRESS NOTES Chief Complaint Chief Complaint cc: Diarrhea, MRSA sepsis ESRD on dialysis Encephalopathy Diabetes mellitus morbid obese, BMI 47, down almost 150lbs from max weight Hyperlipidemia Hypertension KRYSTLE Infected HDC catheter. MRSA -s/p placement temp [facility] HDC 07/09 -s/p removal [place] [facility]DC 07/07 Encephalopathy ESRD History of Present Illness History of Present Illness OOB to chair, use commode, wound consult to eval backside blood sugar up today, liberalize diet increase insulin dose, add levemir SSI labs reviewed, d/w and her brother, Ana looks a lot better last 2 days Vitals Vitals Vital Signs Date Time Temp Pulse Resp B/P Pulse Ox O2 Delivery O2 Flow Rate FiO2 07/14/16 11:00 97.6 74 18 138/60 95 Room Air 97.6 07/14/16 08:00 2.0 Physical Exam General: Alert, Cooperative Heart: Regular rate, Normal S1, Normal S2 Lungs: Crackles, Other (No chest retractions were present) Abdomen: Soft, No tenderness Extremities: No clubbing, No cyanosis Skin: No rashes, No breakdown Labs LABS Laboratory Tests Test 07/13/16 17:32 07/14/16 04:10 07/14/16 08:33 07/14/16 11:37 Glucose (Fingerstick) 274mg/dL (70-99) 332mg/dL (70-99) 348mg/dL (70-99) White Blood Count 7.2x10^3/uL (4.0-11.0) Red Blood Count 3.80x10^6/uL (3.50-5.40) Hemoglobin 10.1g/dL (12.0-15.5) Hematocrit 31.3% (36.0-47.0) Mean Corpuscular Volume 83fL (79-100) Mean Corpuscular Hemoglobin 27pg (25-35) Mean Corpuscular Hemoglobin Concent 32g/dL (31-37) Red Cell Distribution Width 16.0% (11.5-14.5) Platelet Count 237x10^3/uL (140-400) Neutrophils (%) (Auto) 88% (31-73) Lymphocytes (%) (Auto) 6% (24-48) Monocytes (%) (Auto) 5% (0-9) Eosinophils (%) (Auto) 1% (0-3) Basophils (%) (Auto) 0% (0-3) Neutrophils # (Auto) 6.3x10^3uL (1.8-7.7) Lymphocytes # (Auto) 0.5x10^3/uL (1.0-4.8) Monocytes # (Auto) 0.3x10^3/uL (0.0-1.1) Eosinophils # (Auto) 0.0x10^3/uL (0.0-0.7) Basophils # (Auto) 0.0x10^3/uL (0.0-0.2) Segmented Neutrophils % 87% (35-66) Band Neutrophils % 1% (0-9) Lymphocytes % 5% (24-48) Monocytes % 3% (0-10) Eosinophils % 4% (0-5) Platelet Estimate Adequate (ADEQUATE) Sodium Level 131mmol/L (136-145) Potassium Level 4.3mmol/L (3.5-5.1) Chloride Level 95mmol/L (98-107) Carbon Dioxide Level 27mmol/L (21-32) Anion Gap 9 (6-14) Blood Urea Nitrogen 48mg/dL (7-20) Creatinine 4.9mg/dL (0.6-1.0) Estimated GFR (Cockcroft-Gault) 9.1 BUN/Creatinine Ratio 10 (6-20) Glucose Level 368mg/dL (70-99) Calcium Level 7.6mg/dL (8.5-10.1) Phosphorus Level 6.2mg/dL (2.6-4.7) Magnesium Level 2.1mg/dL (1.8-2.4) Total Bilirubin 0.8mg/dL (0.2-1.0) Aspartate Amino Transf (AST/SGOT) 39U/L (15-37) Alanine Aminotransferase (ALT/SGPT) 32U/L (14-59) Alkaline Phosphatase 278U/L (46-116) Total Protein 6.9g/dL (6.4-8.2) Albumin 1.7g/dL (3.4-5.0) Albumin/Globulin Ratio 0.3 (1.0-1.7) Review of Systems Review of Systems no n..vd Assessment and Plan Assessmemt and Plan Problems Medical Problems: (1) Anemia Status: Acute (2) End stage renal disease Status: Acute (3) Generalized weakness Status: Acute (4) Healthcare-associated pneumonia Status: Acute (5) Sepsis Status: Acute (6) Transient hypotension Status: Acute (7) Urinary tract infection Status: Acute Problems: Comment Review of Relevant I have reviewed the following items dominga (where applicable) has been applied. Labs Laboratory Tests Test 07/12/16 17:11 07/13/16 10:46 07/13/16 17:32 07/14/16 04:10 Glucose (Fingerstick) 252mg/dL (70-99) 274mg/dL (70-99) White Blood Count 6.9x10^3/uL (4.0-11.0) 7.2x10^3/uL (4.0-11.0) Red Blood Count 4.03x10^6/uL (3.50-5.40) 3.80x10^6/uL (3.50-5.40) Hemoglobin 10.7g/dL (12.0-15.5) 10.1g/dL (12.0-15.5) Hematocrit 33.0% (36.0-47.0) 31.3% (36.0-47.0) Mean Corpuscular Volume 82fL (79-100) 83fL (79-100) Mean Corpuscular Hemoglobin 27pg (25-35) 27pg (25-35) Mean Corpuscular Hemoglobin Concent 33g/dL (31-37) 32g/dL (31-37) Red Cell Distribution Width 16.0% (11.5-14.5) 16.0% (11.5-14.5) Platelet Count 234x10^3/uL (140-400) 237x10^3/uL (140-400) Neutrophils (%) (Auto) 85% (31-73) 88% (31-73) Lymphocytes (%) (Auto) 8% (24-48) 6% (24-48) Monocytes (%) (Auto) 5% (0-9) 5% (0-9) Eosinophils (%) (Auto) 2% (0-3) 1% (0-3) Basophils (%) (Auto) 1% (0-3) 0% (0-3) Neutrophils # (Auto) 5.8x10^3uL (1.8-7.7) 6.3x10^3uL (1.8-7.7) Lymphocytes # (Auto) 0.5x10^3/uL (1.0-4.8) 0.5x10^3/uL (1.0-4.8) Monocytes # (Auto) 0.3x10^3/uL (0.0-1.1) 0.3x10^3/uL (0.0-1.1) Eosinophils # (Auto) 0.1x10^3/uL (0.0-0.7) 0.0x10^3/uL (0.0-0.7) Basophils # (Auto) 0.1x10^3/uL (0.0-0.2) 0.0x10^3/uL (0.0-0.2) Segmented Neutrophils % 87% (35-66) Band Neutrophils % 1% (0-9) Lymphocytes % 5% (24-48) Monocytes % 3% (0-10) Eosinophils % 4% (0-5) Platelet Estimate Adequate (ADEQUATE) Sodium Level 131mmol/L (136-145) Potassium Level 4.3mmol/L (3.5-5.1) Chloride Level 95mmol/L (98-107) Carbon Dioxide Level 27mmol/L (21-32) Anion Gap 9 (6-14) Blood Urea Nitrogen 48mg/dL (7-20) Creatinine 4.9mg/dL (0.6-1.0) Estimated GFR (Cockcroft-Gault) 9.1 BUN/Creatinine Ratio 10 (6-20) Glucose Level 368mg/dL (70-99) Calcium Level 7.6mg/dL (8.5-10.1) Phosphorus Level 6.2mg/dL (2.6-4.7) Magnesium Level 2.1mg/dL (1.8-2.4) Total Bilirubin 0.8mg/dL (0.2-1.0) Aspartate Amino Transf (AST/SGOT) 39U/L (15-37) Alanine Aminotransferase (ALT/SGPT) 32U/L (14-59) Alkaline Phosphatase 278U/L (46-116) Total Protein 6.9g/dL (6.4-8.2) Albumin 1.7g/dL (3.4-5.0) Albumin/Globulin Ratio 0.3 (1.0-1.7) Test 07/14/16 08:33 07/14/16 11:37 Glucose (Fingerstick) 332mg/dL (70-99) 348mg/dL (70-99) Laboratory Tests Test 07/13/16 17:32 07/14/16 04:10 07/14/16 08:33 07/14/16 11:37 Glucose (Fingerstick) 274mg/dL (70-99) 332mg/dL (70-99) 348mg/dL (70-99) White Blood Count 7.2x10^3/uL (4.0-11.0) Red Blood Count 3.80x10^6/uL (3.50-5.40) Hemoglobin 10.1g/dL (12.0-15.5) Hematocrit 31.3% (36.0-47.0) Mean Corpuscular Volume 83fL (79-100) Mean Corpuscular Hemoglobin 27pg (25-35) Mean Corpuscular Hemoglobin Concent 32g/dL (31-37) Red Cell Distribution Width 16.0% (11.5-14.5) Platelet Count 237x10^3/uL (140-400) Neutrophils (%) (Auto) 88% (31-73) Lymphocytes (%) (Auto) 6% (24-48) Monocytes (%) (Auto) 5% (0-9) Eosinophils (%) (Auto) 1% (0-3) Basophils (%) (Auto) 0% (0-3) Neutrophils # (Auto) 6.3x10^3uL (1.8-7.7) Lymphocytes # (Auto) 0.5x10^3/uL (1.0-4.8) Monocytes # (Auto) 0.3x10^3/uL (0.0-1.1) Eosinophils # (Auto) 0.0x10^3/uL (0.0-0.7) Basophils # (Auto) 0.0x10^3/uL (0.0-0.2) Segmented Neutrophils % 87% (35-66) Band Neutrophils % 1% (0-9) Lymphocytes % 5% (24-48) Monocytes % 3% (0-10) Eosinophils % 4% (0-5) Platelet Estimate Adequate (ADEQUATE) Sodium Level 131mmol/L (136-145) Potassium Level 4.3mmol/L (3.5-5.1) Chloride Level 95mmol/L (98-107) Carbon Dioxide Level 27mmol/L (21-32) Anion Gap 9 (6-14) Blood Urea Nitrogen 48mg/dL (7-20) Creatinine 4.9mg/dL (0.6-1.0) Estimated GFR (Cockcroft-Gault) 9.1 BUN/Creatinine Ratio 10 (6-20) Glucose Level 368mg/dL (70-99) Calcium Level 7.6mg/dL (8.5-10.1) Phosphorus Level 6.2mg/dL (2.6-4.7) Magnesium Level 2.1mg/dL (1.8-2.4) Total Bilirubin 0.8mg/dL (0.2-1.0) Aspartate Amino Transf (AST/SGOT) 39U/L (15-37) Alanine Aminotransferase (ALT/SGPT) 32U/L (14-59) Alkaline Phosphatase 278U/L (46-116) Total Protein 6.9g/dL (6.4-8.2) Albumin 1.7g/dL (3.4-5.0) Albumin/Globulin Ratio 0.3 (1.0-1.7) Microbiology 07/11/16 Blood Culture - Preliminary, Resulted NO GROWTH AFTER 2 DAYS 07/08/16 Fecal Leukocyte Stain - Final, Complete 07/06/16 Urine Culture - Final, Complete 07/06/16 Urine Culture Result 1 (NEGRITO) - Final, Complete 07/06/16 Gram Stain - Final, Complete Medications Current Medications Sodium Chloride (Iv Sodium Chloride 0.9% 500ml Bag) 500 ml @ 1,000 mls/hr 1X ONCE IV Last administered on 07/06/16 13:33; Start 07/06/16 at 12:45; Stop 01/12 at 13:14; Status DC Ondansetron HCl (Zofran) 4 mg 1X ONCE IV Last administered on 07/06/16t 13:33 ; Start 07/06/16 at 12:45; Stop 07/06/16 at 12:46; Status DC Vancomycin HCl (Vanco Per Pharmacy) 1 each PRN DAILY PRN MC SEE COMMENTS Last administered on 07/13/16 13:51; Start 07/06/16 at 14:00 Piperacillin Sod/ Tazobactam Sod (Zosyn Per Pharmacy) 1 each PRN DAILY PRN MC SEE COMMENTS; Start 07/06/16 at 14:00; Stop 07/08/16 at 09:55; Status DC Levofloxacin/ Dextrose 1 each 1 each PRN DAILY PRN MC SEE COMMENTS; Start 07/06 at 14:00; Stop 07/08/16 at 09:55; Status DC Vancomycin HCl/ Sodium Chloride (Iv Sodium Chloride 0.9% 500ml Bag) 500 ml @ 250 mls/hr 1X ONCE IV Last administered on 07/06/16 15:03; Start 07/06/16 at 14:15; Stop 07/06/16 at 16:14; Status DC Ondansetron HCl (Zofran) 4 mg PRN Q8HRS PRN IV NAUSEA/VOMITING; Start 07/06/16 at 14:30; Stop 07/07/16 at 14:29; Status DC Morphine Sulfate 2 mg PRN Q2HR PRN IV PAIN; Start 07/06/16 at 14:30; Stop 07/07 at 14:29; Status DC Acetaminophen 650 mg 650 mg PRN Q4HRS PRN PO FEVER Last administered on 05:17; Start 07/06/16 at 14:30; Stop 07/07/16 at 14:29; Status DC Piperacillin Sod/ Tazobactam Sod 2.25 gm/Sodium Chloride 50 ml @ 100 mls/hr Q8HRS IV Last administered on 07/08/16 05:17; Start 07/06/16 at 15:00; Stop at 09:55; Status DC Levofloxacin/ Dextrose (LEVAQUIN 500mg PREMIX) 100 ml @ 100 mls/hr Q48H IV Last administered on 07/06/16 17:36; Start 07/06/16 at 15:00; Stop 07/08/16 at 09:55; Status DC Darbepoetin Naif 60 mcg 60 mcg WEEKLYHS SQ Last administered on 07/13/16 22:41 ; Start 07/06/16 at 21:00 Sodium Chloride (Iv Sodium Chloride 0.9% 1000ml Bag) 1,000 ml @ 1,000 mls/hr Q1H PRN IV hypotension; Start 07/06/16 at 23:29; Stop 07/07/16 at 05:28; Status DC Sodium Chloride (Normal Saline Flush) 10 ml 1X PRN PRN IV AP catheter pack; Start 07/06/16 at 23:30; Stop 07/07/16 at 23:29; Status DC Sodium Chloride (Normal Saline Flush) 10 ml 1X PRN PRN IV [employer] catheter pack; Start 07/06/16 at 23:30; Stop 07/07/16 at 23:29; Status DC Info (PHARMACY MONITORING -- do not chart) 1 each PRN DAILY PRN MC SEE COMMENTS ; Start 07/06/16 at 23:30; Stop 07/09/16 at 21:17; Status DC Info 1 each 1 each PRN DAILY PRN MC SEE COMMENTS; Start 07/06/16 at 23:30; Stop 07/07/16 at 13:09; Status DC Vancomycin HCl/ Sodium Chloride (Iv Sodium Chloride 0.9% 250ml) 250 ml @ 250 mls/hr 1X ONCE IV Last administered on 07/07/16 06:36; Start 07/07/16 at 06: 30; Stop 07/07/16 at 07:29; Status DC Nystatin (Nystop) 1 stephan BID TP Last administered on 07/14/16 09:14; Start 02/12 at 14:00 Oxycodone HCl (Roxicodone) 5 mg PRN Q4HRS PRN PO PAIN; Start 07/07/16 at 18:00 ; Stop 07/07/16 at 18:38; Status DC Acetaminophen (Tylenol) 650 mg PRN Q6HRS PRN PO MILD PAIN / TEMP Last administered on 07/08/16 04:45; Start 07/07/16 at 18:45 Tramadol HCl (Ultram) 50 mg PRN Q6HRS PRN PO MODERATE PAIN Last administered on 07/13/16 22:43; Start 07/07/16 at 18:45 Acetaminophen/ Hydrocodone Bitart (Lortab 5/325) 1 tab PRN Q4HRS PRN PO SEVERE PAIN Last administered on 07/13/16 22:42; Start 07/08/16 at 09:30 Vancomycin HCl 1 each 1X ONCE MC Last administered on 07/09/16 05:31; Start 07/09/16 at 05:00; Stop 07/09/16 at 05:01; Status DC Amiodarone HCl (Cordarone) 200 mg BID PO Last administered on 07/14/16 09:13; Start 07/08/16 at 21:00 Aripiprazole (Abilify) 2.5 mg DAILY PO Last administered on 07/14/16 09:19; Start 07/09/16 at 09:00 Aspirin (Ecotrin) 81 mg DAILY PO Last administered on 07/14/16 09:10; Start at 15:00 Atorvastatin Calcium (Lipitor) 20 mg HS PO Last administered on 07/13/16 22:42 ; Start 07/08/16 at 21:00 Buspirone HCl (Buspar) 5 mg TID PO Last administered on 07/14/16 09:09; Start 07/08/16 at 15:00 Clonidine HCl (Catapres) 0.2 mg DAILY PO Last administered on 07/14/16 09:09; Start 07/09/16 at 09:00 Docusate Sodium (Colace) 100 mg BID PO Last administered on 07/13/16 22:41; Start 07/08/16 at 21:00 Ferrous Sulfate (Feosol) 325 mg DAILY PO Last administered on 07/14/16 09:12; Start 07/09/16 at 09:00 Heparin Sodium (Porcine) 5,000 unit TID SQ Last administered on 07/14/16 09:56 ; Start 07/08/16 at 15:00 Albuterol/ Ipratropium (Duoneb) 3 ml PRN QID PRN NEB SHORTNESS OF BREATH; Start 07/08/16 at 14:45 Labetalol HCl (Normodyne) 10 mg PRN BID PRN IVP HYPERTENSION, SEE COMMENTS; Start 07/08/16 at 15:15 Nystatin (Nystop) 1 stephan BID TP ; Start 07/08/16 at 21:00; Status Cancel Mirtazapine (Remeron) 7.5 mg DAILY PO Last administered on 07/14/16 09:13; Start 07/09/16 at 09:00 Polyethylene Glycol (miraLAX PACKET) 17 gm DAILY PO Last administered on 09:00; Start 07/09/16 at 09:00 Sennosides (Senna) 8.6 mg DAILY PO Last administered on 07/10/16 14:45; Start 07/09/16 at 09:00 Non-Formulary Medication 100 mcg WEEKLY SQ TO TREAT ANEMIA; Start 07/15/16 at 09 :00; Status UNV Diltiazem HCl (Cardizem 24hr Cd) 360 mg DAILY PO Last administered on 09:12; Start 07/09/16 at 09:00 Escitalopram Oxalate (Lexapro) 20 mg DAILY PO Last administered on 07/14/16 09 :11; Start 07/09/16 at 09:00 Vitamin B Complex/ Vitamin C (Zoe-Kiran) 1 tab DAILY PO Last administered on 09:08; Start 07/09/16 at 09:00 Gabapentin (Neurontin) 600 mg BID PO Last administered on 07/14/16 09:12; Start 07/08/16 at 21:00 Non-Formulary Medication 9 mg DAILY PO ; Start 07/09/16 at 09:00; Status UNV Insulin Aspart (Novolog) 10 units TIDAC SQ Last administered on 07/14/16 09:26 ; Start 07/08/16 at 16:30; Stop 07/14/16 at 11:48; Status DC Heparin Sodium (Porcine) (Heparin Sodium) 10,000 unit STK-MED ONCE .ROUTE ; Start 07/09/16 at 11:22; Stop 07/09/16 at 11:23; Status DC Lidocaine/Sodium Bicarbonate 20 ml 20 ml STK-MED ONCE IJ ; Start 07/09/16 at 11: 22; Stop 07/09/16 at 11:23; Status DC Heparin Sodium/ Sodium Chloride 500 ml @ As Directed STK-MED ONCE .ROUTE ; Start 07/09/16 at 11:22; Stop 07/09/16 at 11:23; Status DC Heparin Sodium/ Sodium Chloride 60 unit 1X ONCE IV Last administered on 12:21; Start 07/09/16 at 11:45; Stop 07/09/16 at 11:51; Status DC Heparin Sodium (Porcine) (Heparin Sodium) 2,500 unit 1X ONCE INT CAT Last administered on 07/09/16t 12:21; Start 07/09/16 at 11:45; Stop 07/09/16 at 11:51 ; Status DC Lidocaine/Sodium Bicarbonate (Buffered Lidocaine 1%) 3 ml 1X ONCE IJ Last administered on 07/09/16t 12:20; Start 07/09/16 at 11:45; Stop 07/09/16 at 11:51 ; Status DC Methylprednisolone Acetate (Depo-Medrol 40mg Vial) 40 mg 1X ONCE IM ; Start at 14:45; Stop 07/09/16 at 14:59; Status DC Bupivacaine HCl 10 ml 10 ml 1X ONCE IJ ; Start 07/09/16 at 14:45; Stop at 14:59; Status DC Sodium Chloride 1,000 ml @ 1,000 mls/hr Q1H PRN IV hypotension; Start 07/09/16 at 15:15; Stop 07/09/16 at 21:14; Status DC Albumin Human (Albuminar) 200 ml @ 200 mls/hr 1X PRN PRN IV Hypotension; Start 07/09/16 at 15:15; Stop 07/09/16 at 21:14; Status DC Acetaminophen (Tylenol) 500 mg 1X PRN PRN PO MILD PAIN / TEMP; Start 07/09/16 at 15:15; Stop 07/10/16 at 15:14; Status DC Diphenhydramine HCl (Benadryl) 25 mg 1X PRN PRN IV ITCHING; Start 07/09/16 at 15:15; Stop 07/10/16 at 15:14; Status DC Diphenhydramine HCl (Benadryl) 25 mg 1X PRN PRN IV ITCHING; Start 07/09/16 at 15:15; Stop 07/10/16 at 15:14; Status DC Labetalol HCl (Normodyne) 10 mg PRN Q1HR PRN IVP SBP > 180; Start 07/09/16 at 15:15; Stop 07/10/16 at 15:14; Status DC Clonidine HCl (Catapres) 0.1 mg 1X PRN PRN PO SBP > 180; Start 07/09/16 at 15: 15; Stop 07/10/16 at 15:14; Status DC Info (PHARMACY MONITORING -- do not chart) 1 each PRN DAILY PRN MC SEE COMMENTS ; Start 07/09/16 at 15:15; Status Cancel Vancomycin HCl 1 each 1 each 1X ONCE MC ; Start 07/11/16 at 06:00; Stop at 06:01; Status DC Sodium Chloride (Iv Sodium Chloride 0.9% 1000ml Bag) 1,000 ml @ 1,000 mls/hr Q1H PRN IV hypotension; Start 07/10/16 at 10:45; Stop 07/10/16 at 16:44; Status DC Sodium Chloride (Normal Saline Flush) 10 ml 1X PRN PRN IV AP catheter pack; Start 07/10/16 at 10:45; Stop 07/11/16 at 10:44; Status DC Sodium Chloride (Normal Saline Flush) 10 ml 1X PRN PRN IV [employer] catheter pack; Start 07/10/16 at 10:45; Stop 07/11/16 at 10:44; Status DC Info (PHARMACY MONITORING -- do not chart) 1 each PRN DAILY PRN MC SEE COMMENTS ; Start 07/10/16 at 10:45; Stop 07/10/16 at 14:25; Status DC Info 1 each 1 each PRN DAILY PRN MC SEE COMMENTS; Start 07/10/16 at 10:45; Status Cancel Lactated Ringer's 1,000 ml @ 50 mls/hr Q20H IV ; Start 07/13/16 at 07:00; Stop 07/13/16 at 18:59; Status Cancel Vancomycin HCl 500 mg/Sodium Chloride 100 ml @ 100 mls/hr 1X ONCE IV Last administered on 07/11/16t 18:00; Start 07/11/16 at 18:00; Stop 07/11/16 at 18:59 ; Status DC Sodium Chloride 1,000 ml @ 1,000 mls/hr Q1H PRN IV hypotension; Start 07/13/16 at 08:26; Stop 07/13/16 at 14:25; Status DC Albumin Human (Albuminar) 200 ml @ 200 mls/hr 1X PRN PRN IV Hypotension; Start 07/13/16 at 08:30; Stop 07/13/16 at 14:29; Status DC Midodrine (Proamatine) 5 mg 1X ONCE PO ; Start 07/13/16 at 08:30; Stop at 08:35; Status DC Acetaminophen (Tylenol) 500 mg 1X PRN PRN PO MILD PAIN / TEMP; Start 07/13/16 at 08:30; Stop 07/14/16 at 08:29; Status DC Diphenhydramine HCl (Benadryl) 25 mg 1X PRN PRN IV ITCHING; Start 07/13/16 at 08:30; Stop 07/14/16 at 08:29; Status DC Diphenhydramine HCl (Benadryl) 25 mg 1X PRN PRN IV ITCHING; Start 07/13/16 at 08:30; Stop 07/14/16 at 08:29; Status DC Labetalol HCl (Normodyne) 10 mg PRN Q1HR PRN IVP SBP > 180; Start 07/13/16 at 08:30; Stop 07/14/16 at 08:29; Status DC Clonidine HCl 0.1 mg 0.1 mg 1X PRN PRN PO SBP > 180; Start 07/13/16 at 08:30; Stop 07/14/16 at 08:29; Status DC Sodium Chloride (Iv Sodium Chloride 0.9% 1000ml Bag) 1,000 ml @ 400 mls/hr Q2H30M PRN IV PATENCY; Start 07/13/16 at 08:26; Stop 07/13/16 at 20:25; Status DC Info 1 each 1 each PRN DAILY PRN MC SEE COMMENTS; Start 07/13/16 at 08:30 Sodium Chloride 1,000 ml @ 0 mls/hr Q0M IV Last administered on 07/13/16t 12: 39; Start 07/13/16 at 12:15 Propofol (Diprivan) 40 ml @ As Directed STK-MED ONCE IV ; Start 07/13/16 at 12: 27; Stop 07/13/16 at 12:28; Status DC Lidocaine HCl (Xylocaine-Mpf 1% Vial) 5 ml STK-MED ONCE .ROUTE ; Start 07/13/16 at 12:27; Stop 07/13/16 at 12:28; Status DC Lidocaine HCl (Viscous Lidocaine) 15 ml STK-MED ONCE .ROUTE ; Start 07/13/16 at 12:28; Stop 07/13/16 at 12:29; Status DC Benzocaine (Hurricaine One) 1 spray STK-MED ONCE .ROUTE ; Start 07/13/16 at 12: 28; Stop 07/13/16 at 12:29; Status DC Lidocaine HCl 30 stephan 30 stephan STK-MED ONCE TP ; Start 07/13/16 at 12:28; Stop at 12:29; Status DC Vancomycin HCl 500 mg/Sodium Chloride 100 ml @ 100 mls/hr 1X ONCE IV Last administered on 07/13/16 16:00; Start 07/13/16 at 16:00; Stop 07/13/16 at 16:59 ; Status DC Albumin Human (Albuminar) 100 ml @ 100 mls/hr TID IV Last administered on 07/14 12:14; Start 07/14/16 at 10:00; Stop 07/15/16 at 21:59 Calcium Acetate (Phoslo) 1,334 mg TIDWMEALS PO Last administered on 07/14/16 12:00; Start 07/14/16 at 12:00 Insulin Aspart (Novolog) 18 units TIDAC SQ Last administered on 07/14/16 12:21 ; Start 07/14/16 at 12:10 Insulin Detemir (Levemir) 20 units DAILY10 SQ Last administered on 07/14/16 12 :22; Start 07/14/16 at 12:00 Active Scripts Active Reported Amiodarone Hcl 200 Mg Tablet 200 Mg PO BID Aspir 81 (Aspirin) 81 Mg Tablet.dr 81 Mg PO DAILY Atorvastatin Calcium 20 Mg Tablet 20 Mg PO HS Cardizem Cd (Diltiazem Hcl) 360 Mg Cap.er.24h 360 Mg PO DAILY Docusate Sodium 100 Mg Capsule 100 Mg PO BID Melatonin 3 Mg Tablet 9 Mg PO DAILY Polyethylene Glycol 3350 17 Gm Powd.pack 17 Gm PO DAILY Senna (Sennosides) 8.6 Mg Tablet 8.6 Mg PO DAILY Clonidine Hcl 0.2 Mg Tablet 0.2 Mg PO DAILY Micro-Guard (Miconazole Nitrate) 85 Gm Powder 85 Gm TP BID Humalog (Insulin Lispro) 100 Unit/1 Ml Vial 100 Unit SQ Buspirone Hcl 5 Mg Tablet 5 Mg PO TID Aranesp Vial (Darbepoetin Naif In Polysorbat) 100 Mcg/1 Ml Vial 100 Mcg SQ WEEKLY Nephron Fa Tablet (Fe Fumarate/Dinorah/Fa/Bcomp&C) 1 Each Tablet 1 Each PO DAILY Ferrous Sulfate 325 Mg Tablet 1 Tab PO DAILY Escitalopram Oxalate 20 Mg Tablet 20 Mg PO DAILY Duoneb 0.5-3(2.5) Mg/3 Ml (Albuterol/Ipratropium) 3 Ml Ampul.neb 3 Ml NEB QID PRN Gabapentin 600 Mg Tablet 600 Mg PO BID Mirtazapine 7.5 Mg Tablet 7.5 Mg PO DAILY Abilify (Aripiprazole) 2 Mg Tablet 2.5 Mg PO DAILY Labetalol Hcl 5 Mg/1 Ml Vial 10 Mg IV PRN Heparin Sod 5,000 Unit/ 0.5 Ml (Heparin Sodium,Porcine/Pf) 5,000 Unit/0.5 Ml Vial 5,000 Unit IJ TID Novolin N (Nph, Human Insulin Isophane) 100 Unit/1 Ml Vial 100 Unit SQ PRN Vitals/I & O Vital Sign - Last 24 Hours 07/13/16 07/13/16 07/13/16 07/13/16 13:21 13:21 13:36 13:51 Temp 97.6 97.6 97.6 97.6 97.6 97.6 Pulse 75 80 79 Resp 15 15 15 B/P 132/51 114/55 121/65 Pulse Ox 99 99 99 O2 Delivery Nasal Cannula Nasal Cannula Nasal Cannula Nasal Cannula O2 Flow Rate 2.0 2.0 2.0 2.0 07/13/16 07/13/16 07/13/16 07/13/16 15:00 16:14 16:14 16:14 Temp 98.3 98.3 Pulse 79 79 79 79 Resp 20 B/P 138/55 138/55 138/55 138/55 Pulse Ox 97 O2 Delivery Nasal Cannula O2 Flow Rate 2.0 07/13/16 07/13/16 07/13/16 07/13/16 19:19 20:00 22:42 22:42 Temp 97.8 97.8 Pulse 73 73 Resp 18 18 B/P 129/51 129/51 Pulse Ox 92 92 O2 Delivery Nasal Cannula Nasal Cannula Nasal Cannula O2 Flow Rate 2.0 2.0 2.0 07/13/16 07/13/16 07/13/16 07/13/16 22:43 23:00 23:42 23:42 Temp 97.6 97.6 Pulse 91 Resp 18 20 B/P 146/59 Pulse Ox 92 91 92 92 O2 Delivery Nasal Cannula Nasal Cannula Nasal Cannula Nasal Cannula O2 Flow Rate 2.0 2.0 2.0 2.0 07/14/16 07/14/16 07/14/16 07/14/16 03:00 07:00 08:00 08:00 Temp 98.2 98.0 98.2 98.0 Pulse 98 64 Resp 20 16 B/P 147/63 133/46 Pulse Ox 93 94 O2 Delivery Nasal Cannula Room Air Nasal Cannula Nasal Cannula O2 Flow Rate 2.0 2.0 2.0 07/14/16 07/14/16 07/14/16 07/14/16 09:09 09:12 09:13 11:00 Temp 97.6 97.6 Pulse 98 98 98 74 Resp 18 B/P 133/46 133/46 133/46 138/60 Pulse Ox 95 O2 Delivery Room Air Intake and Output 07/13/16 07/13/16 07/14/16 15:00 23:00 07:00 Intake Total 100 ml 360 ml Balance 100 ml 360 ml Nutrition Consultation Dietary Evaluation: Recommendations by RD: Increase Calorie Intake, Protein supplementation Comments: Resume diet and Novasource renal - 475kcal and 21.6g protein/ serving Expected Outcomes/Goals: to meet >75% est nutr needs Malnutrition Findings: Food and Nutrition Intake (Mod: <75% est energy req 7days Weight Status: Morbidly Obese Fluid Accumulation (Non-Severe: Mild depletion TOMASZ ARTEAGA MD Jul 14, 2016 12:58
[2016-07-14 15:00] VITALS: BP 114/45
--- NOTE | 2016-07-14 15:23 | PDOC ---
Provider Note Provider Note Vascular Surgery Consult - Dictated 60 year old female with ESRD on dialysis who had her right chest permacath removed for infection. She is needing fpc arm access for dialysis. She is left handed. Her right arm has a palpable brachial pulse and weakly palpable radial pulse. Vein mapping shows the right arm has sufficient vein for a brachiocephalic fistula. Recommend protecting the right arm and surgery when the patient agrees. She will need a new permacath per IR when infection cleared. CHARLOTTE FARAH MD Jul 14, 2016 15:23
[2016-07-14] MEDS: LOPERAMIDE 2 MG CAPSULE PO PRN (17:08)
[2016-07-14] MEDS: VANCOMYCIN PER PHARMACY MC PRN (17:40)
[2016-07-14 19:30] VITALS: BP 138/62
[2016-07-14] MEDS: ATORVASTATIN CALCIUM 20 MG TABLET PO SCH (22:08)
[2016-07-14 23:41] VITALS: BP 133/55
--- NOTE | 2016-07-15 00:48 | CONS ---
DATE OF CONSULTATION: 07/14/2016 CHIEF COMPLAINT: End-stage renal disease, needing long-term arm dialysis access. HISTORY OF PRESENT ILLNESS: The patient is a 60-year-old female with end-stage renal disease who has been on hemodialysis through a right chest Perm-A-Cath for the past year. She has developed infection and this Perm-A-Cath has been removed and a temporary left chest dialysis catheter placed. Her infection is being cleared with IV antibiotics per Infectious Disease. She is left arm dominant, prefers the access in the right arm if possible. Family reports no weakness in the right arm or swelling. She has never had an arm access in the past. Currently, she is very sleepy from medications but I did discuss this with her family member in the room who helped with the history. REVIEW OF SYSTEMS: Unobtainable from the patient because of decreased mental status, her medication at this time. PAST MEDICAL HISTORY: Includes: 1. End-stage renal disease, on hemodialysis. 2. Diabetes mellitus. 3. Hyperlipidemia. 4. Hypertension. 5. Recently infected right chest Perm-A-Cath. ALLERGIES: No known medication allergies. SOCIAL HISTORY: She does not smoke or use alcohol. PHYSICAL EXAMINATION: GENERAL: The patient is awake and does respond to some questions, but she is very drowsy from recent medication. VITAL SIGNS: She is afebrile and her vital signs are currently stable. NECK: Supple. She has a left neck temporary dialysis catheter in place. Her right chest has a bandage from her recently removed Perm-A-Cath. EXTREMITIES: Her bilateral upper extremities are warm without edema. Her right arm has a palpable brachial pulse and a weakly palpable radial pulse. SKIN: Normal color. There is some bruising in her right arm from recent IV access. Review of vein mapping study shows sufficient right upper arm cephalic vein and basilic veins for primary fistula at the antecubital location. IMPRESSION: 1. End-stage renal disease on chronic hemodialysis. 2. Bacteremia secondary to right chest Perm-A-Cath, which has been removed and being treated with IV antibiotics. PLAN: The patient has recent infection and bacteremia secondary to her Perm-A-Cath, which has been removed. She needs long-term dialysis access and would best benefit from ____ access. She is left arm dominant. I recommend a right antecubital brachial artery to cephalic vein fistula after reviewing her vein mapping. The patient has been agreeable with Dr. Mccrary to proceed with the surgery, but she is very drowsy at this time. Her family member does express that she will likely agree. I will plan on putting her on for surgery tomorrow and we will confirm that she would like to proceed prior to surgery. She will continue on IV antibiotics for her bacteremia and continue with her temporary catheter for hemodialysis. When the infection is cleared, we will have Interventional Radiology place her Perm-A-Cath. CHARLOTTE FARAH MD DR: JIGNA/charly JOB#: [id number] / [id number]
[2016-07-15 03:55] VITALS: BP 142/61
[2016-07-15] MEDS ORDERED: VANCOMYCIN RANDOM LEVEL. MC ONE (06:00)
[2016-07-15] MEDS: VANCOMYCIN PER PHARMACY MC PRN ×2 (06:37→13:02)
[2016-07-15] MEDS ORDERED: PROCHLORPERAZINE 10 MG/2 ML VIAL. IV PRN (07:00)
[2016-07-15] MEDS ORDERED: fentaNYL PF VIAL 100 MCG/2 ML VIAL IV PRN ×2 (07:00)
[2016-07-15] MEDS ORDERED: MORPHINE SULFATE 2 MG/ML DISP.SYRIN. IV PRN (07:00)
[2016-07-15] MEDS ORDERED: HYDROmorphone 2 MG/ML VIAL IV PRN (07:00)
[2016-07-15] MEDS ORDERED: LIDOCAINE 1% 1 ML SYRINGE. ID PRN (07:00)
[2016-07-15] MEDS ORDERED: LIDOCAINE 1% 20 ML VIAL. ONE (07:14)
[2016-07-15] MEDS ORDERED: PAPAVERINE 60 MG/2 ML VIAL FOR OR ONLY. ONE (07:16)
[2016-07-15] MEDS ORDERED: SURGICEL FIBRILLAR 1X2 EACH. ONE (07:16)
[2016-07-15] MEDS: CALCIUM ACETATE 667 MG CAPSULE PO SCH ×3 (08:00→17:16)
[2016-07-15] MEDS: ALBUMIN HUMAN 25% 100 ML IV SCH ×3 (08:08→21:51)
[2016-07-15] MEDS: INSULIN ASPART 300 UNITS/3 ML INSULN.PEN SQ SCH ×3 (08:12→17:23)
--- NOTE | 2016-07-15 08:41 | EKG ---
[facility] [address] [place] [address] Test Date: 2016-07-15 Test Time: 04:31:58 Pat Name: THUY PINTO Department: Room: 521 1 Gender: F Machine Crater: ALMA ROSA : 1955 Requested By: CLAUDIA WILSON Order Number: [id number] Reading MD: Lisette Presley Measurements Intervals [place] Rate: 72 P: -90 TX: 224 QRS: 97 QRSD: 150 T: -18 QT: 444 QTc: 488 Interpretive Statements SINUS RHYTHM PROLONGED TX INTERVAL RIGHTWARD AXIS NON SPECIFIC INTRAVENTRICULAR BLOCK ABNORMAL ECG RI6.01 Unconfirmed report No previous ECG available for comparison Electronically Signed On 07-19-2016 15:04:50 CDT by Lisette Presley
--- NOTE | 2016-07-15 08:50 | PDOC ---
PULMONARY PROGRESS NOTES Subjective not more soa Vitals Vital Signs Date Time Temp Pulse Resp B/P Pulse Ox O2 Delivery O2 Flow Rate FiO2 07/15/16 03:55 97.7 56 20 142/61 92 Nasal Cannula 2.0 97.7 ROS: No Nausea, No Chest Pain, No Abdominal Pain, No Increase Cough General: Alert, No acute distress Lungs: Crackles, Other (No chest retractions were present) Cardiovascular: S1, S2 Abdomen: Soft, Non-tender Neuro Exam: Alert Extremities: Other Skin: Warm Labs Laboratory Tests Test 07/13/16 10:46 07/13/16 17:32 07/14/16 04:10 07/14/16 08:33 White Blood Count 6.9x10^3/uL (4.0-11.0) 7.2x10^3/uL (4.0-11.0) Red Blood Count 4.03x10^6/uL (3.50-5.40) 3.80x10^6/uL (3.50-5.40) Hemoglobin 10.7g/dL (12.0-15.5) 10.1g/dL (12.0-15.5) Hematocrit 33.0% (36.0-47.0) 31.3% (36.0-47.0) Mean Corpuscular Volume 82fL (79-100) 83fL (79-100) Mean Corpuscular Hemoglobin 27pg (25-35) 27pg (25-35) Mean Corpuscular Hemoglobin Concent 33g/dL (31-37) 32g/dL (31-37) Red Cell Distribution Width 16.0% (11.5-14.5) 16.0% (11.5-14.5) Platelet Count 234x10^3/uL (140-400) 237x10^3/uL (140-400) Neutrophils (%) (Auto) 85% (31-73) 88% (31-73) Lymphocytes (%) (Auto) 8% (24-48) 6% (24-48) Monocytes (%) (Auto) 5% (0-9) 5% (0-9) Eosinophils (%) (Auto) 2% (0-3) 1% (0-3) Basophils (%) (Auto) 1% (0-3) 0% (0-3) Neutrophils # (Auto) 5.8x10^3uL (1.8-7.7) 6.3x10^3uL (1.8-7.7) Lymphocytes # (Auto) 0.5x10^3/uL (1.0-4.8) 0.5x10^3/uL (1.0-4.8) Monocytes # (Auto) 0.3x10^3/uL (0.0-1.1) 0.3x10^3/uL (0.0-1.1) Eosinophils # (Auto) 0.1x10^3/uL (0.0-0.7) 0.0x10^3/uL (0.0-0.7) Basophils # (Auto) 0.1x10^3/uL (0.0-0.2) 0.0x10^3/uL (0.0-0.2) Glucose (Fingerstick) 274mg/dL (70-99) 332mg/dL (70-99) Segmented Neutrophils % 87% (35-66) Band Neutrophils % 1% (0-9) Lymphocytes % 5% (24-48) Monocytes % 3% (0-10) Eosinophils % 4% (0-5) Platelet Estimate Adequate (ADEQUATE) Sodium Level 131mmol/L (136-145) Potassium Level 4.3mmol/L (3.5-5.1) Chloride Level 95mmol/L (98-107) Carbon Dioxide Level 27mmol/L (21-32) Anion Gap 9 (6-14) Blood Urea Nitrogen 48mg/dL (7-20) Creatinine 4.9mg/dL (0.6-1.0) Estimated GFR (Cockcroft-Gault) 9.1 BUN/Creatinine Ratio 10 (6-20) Glucose Level 368mg/dL (70-99) Calcium Level 7.6mg/dL (8.5-10.1) Phosphorus Level 6.2mg/dL (2.6-4.7) Magnesium Level 2.1mg/dL (1.8-2.4) Total Bilirubin 0.8mg/dL (0.2-1.0) Aspartate Amino Transf (AST/SGOT) 39U/L (15-37) Alanine Aminotransferase (ALT/SGPT) 32U/L (14-59) Alkaline Phosphatase 278U/L (46-116) Total Protein 6.9g/dL (6.4-8.2) Albumin 1.7g/dL (3.4-5.0) Albumin/Globulin Ratio 0.3 (1.0-1.7) Test 07/14/16 11:37 07/14/16 16:21 07/14/16 21:00 07/14/16 22:28 Glucose (Fingerstick) 348mg/dL (70-99) 328mg/dL (70-99) 402mg/dL (70-99) 349mg/dL (70-99) Test 07/15/16 05:20 07/15/16 07:55 Random Vancomycin Level 16.1mcg/mL Glucose (Fingerstick) 333mg/dL (70-99) Laboratory Tests Test 07/14/16 11:37 07/14/16 16:21 07/14/16 21:00 07/14/16 22:28 Glucose (Fingerstick) 348mg/dL (70-99) 328mg/dL (70-99) 402mg/dL (70-99) 349mg/dL (70-99) Test 07/15/16 05:20 07/15/16 07:55 Random Vancomycin Level 16.1mcg/mL Glucose (Fingerstick) 333mg/dL (70-99) Medications Active Scripts Medications Dose Route/Sig Days Date Category Amiodarone Hcl 200 Mg Tablet 200 Mg PO BID 08/28/15 Reported Aspir 81 (Aspirin) 81 Mg Tablet.dr 81 Mg PO DAILY 08/28/15 Reported Atorvastatin Calcium 20 Mg Tablet 20 Mg PO HS 08/28/15 Reported Cardizem Cd (Diltiazem Hcl) 360 Mg Cap.er.24h 360 Mg PO DAILY 08/28/15 Reported Docusate Sodium 100 Mg Capsule 100 Mg PO BID 08/28/15 Reported Melatonin 3 Mg Tablet 9 Mg PO DAILY 08/28/15 Reported Polyethylene Glycol 3350 17 Gm Powd.pack 17 Gm PO DAILY 08/28/15 Reported Senna (Sennosides) 8.6 Mg Tablet 8.6 Mg PO DAILY 08/28/15 Reported Clonidine Hcl 0.2 Mg Tablet 0.2 Mg PO DAILY 08/28/15 Reported Micro-Guard (Miconazole Nitrate) 85 Gm Powder 85 Gm TP BID 08/28/15 Reported Humalog (Insulin Lispro) 100 Unit/1 Ml Vial 100 Unit SQ 08/28/15 Reported Buspirone Hcl 5 Mg Tablet 5 Mg PO TID 08/28/15 Reported Aranesp Vial (Darbepoetin Naif In Polysorbat) 100 Mcg/1 Ml Vial 100 Mcg SQ WEEKLY 08/28/15 Reported Nephron Fa Tablet (Fe Fumarate/Dinorah/Fa/Bcomp&C) 1 Each Tablet 1 Each PO DAILY 08/28/15 Reported Ferrous Sulfate 325 Mg Tablet 1 Tab PO DAILY 08/28/15 Reported Escitalopram Oxalate 20 Mg Tablet 20 Mg PO DAILY 08/28/15 Reported Duoneb 0.5-3(2.5) Mg/3 Ml (Albuterol/Ipratropium) 3 Ml Ampul.neb 3 Ml NEB QID PRN 08/28/15 Reported Gabapentin 600 Mg Tablet 600 Mg PO BID 08/28/15 Reported Mirtazapine 7.5 Mg Tablet 7.5 Mg PO DAILY 08/28/15 Reported Abilify (Aripiprazole) 2 Mg Tablet 2.5 Mg PO DAILY 08/28/15 Reported Labetalol Hcl 5 Mg/1 Ml Vial 10 Mg IV PRN 08/28/15 Reported Heparin Sod 5,000 Unit/ 0.5 Ml (Heparin Sodium,Porcine/Pf) 5,000 Unit/0.5 Ml Vial 5,000 Unit IJ TID 08/28/15 Reported Novolin N (Nph, Human Insulin Isophane) 100 Unit/1 Ml Vial 100 Unit SQ PRN 05/31/13 Reported Impression . 1. Acute respiratory failure, suspect sepsis. 2. Sepsis secondary to urinary tract infection. 3. Possible obstructive sleep apnea. 4. End-stage renal disease, noncompliant. 5. Type 2 diabetes. 6. Depression. 7. Hyperlipidemia. 8 .Bacteremia Plan . continue the same .resp status is compensated TO with possible thrombus related to catheter 1. Continue antibiotics per ID 2. outpatient polysomnogram 3. AV fistula per vascular. 4. follow nephro input, 5. follow Gi input ЕКАТЕРИНА SU MD Jul 15, 2016 08:50
[2016-07-15] MEDS ORDERED: DARBEPOETIN ALFA IN POLYSORBAT 100 MCG SQ SCH (09:00)
[2016-07-15] MEDS ORDERED: HEPARIN SODIUM 5,000 UNIT in IV NORMAL SALINE 500ML BAG 500 ML IRR ONE (09:00)
[2016-07-15] MEDS: HEPARIN PF for SUB-Q USE 5,000 UNIT/0.5 ML VIAL. SQ SCH ×4 (09:00→21:19)
[2016-07-15] MEDS: GABAPENTIN 300 MG CAPSULE. PO SCH ×2 (09:00→21:14)
[2016-07-15] MEDS: busPIRone 5 MG TABLET. PO SCH ×3 (09:00→21:14)
[2016-07-15] MEDS: DOCUSATE SODIUM 100 MG CAPSULE. PO SCH ×2 (09:00→21:00)
[2016-07-15] MEDS: ASPIRIN ENTERIC COATED 81 MG TABLET.DR. PO SCH (09:00)
[2016-07-15] MEDS: ESCITALOPRAM 10 MG TABLET. PO SCH (09:00)
[2016-07-15] MEDS: MIRTAZAPINE 7.5 MG TABLET. PO SCH (09:00)
[2016-07-15] MEDS: ARIPiprazole 2 MG TABLET PO SCH (09:00)
[2016-07-15] MEDS: FOLIC/VIT B COMP W-C (RENAL) TABLET. PO SCH (09:00)
[2016-07-15] MEDS: FERROUS SULFATE 325 MG TABLET. PO SCH (09:00)
[2016-07-15] MEDS: SENNOSIDES 8.6 MG TABLET PO SCH (09:00)
[2016-07-15] MEDS: POLYETHYLENE GLYCOL 3350 17 GM PACKET. PO SCH (09:00)
--- NOTE | 2016-07-15 09:05 | PDOC ---
PROGRESS NOTES Subjective Subjective She admits some soreness in her left elbow. Objective Objective Vital Signs Date Time Temp Pulse Resp B/P Pulse Ox O2 Delivery O2 Flow Rate FiO2 07/15/16 03:55 97.7 56 20 142/61 92 Nasal Cannula 2.0 97.7 Intake and Output 07/15/16 07:00 Intake Total 1360 ml Balance 1360 ml Intake Oral 1160 ml IV Total 200 ml # Voids 7 # Bowel Movements 2 Physical Exam Physical Exam She is alert,supine in bed and receiving hemodialysis and she did participate with physical therapy and she requires assistance with transfers. Assessment Assessment Problems Medical Problems: (1) Anemia Status: Acute (2) End stage renal disease Status: Acute (3) Generalized weakness Status: Acute (4) Healthcare-associated pneumonia Status: Acute (5) Sepsis Status: Acute (6) Transient hypotension Status: Acute (7) Urinary tract infection Status: Acute Plan Plan of Care To SNF or rehab unit of choice when medically stable. Comment Review of Relevant I have reviewed the following items dominga (where applicable) has been applied. Labs Laboratory Tests Test 07/13/16 10:46 07/13/16 17:32 07/14/16 04:10 07/14/16 08:33 White Blood Count 6.9x10^3/uL (4.0-11.0) 7.2x10^3/uL (4.0-11.0) Red Blood Count 4.03x10^6/uL (3.50-5.40) 3.80x10^6/uL (3.50-5.40) Hemoglobin 10.7g/dL (12.0-15.5) 10.1g/dL (12.0-15.5) Hematocrit 33.0% (36.0-47.0) 31.3% (36.0-47.0) Mean Corpuscular Volume 82fL (79-100) 83fL (79-100) Mean Corpuscular Hemoglobin 27pg (25-35) 27pg (25-35) Mean Corpuscular Hemoglobin Concent 33g/dL (31-37) 32g/dL (31-37) Red Cell Distribution Width 16.0% (11.5-14.5) 16.0% (11.5-14.5) Platelet Count 234x10^3/uL (140-400) 237x10^3/uL (140-400) Neutrophils (%) (Auto) 85% (31-73) 88% (31-73) Lymphocytes (%) (Auto) 8% (24-48) 6% (24-48) Monocytes (%) (Auto) 5% (0-9) 5% (0-9) Eosinophils (%) (Auto) 2% (0-3) 1% (0-3) Basophils (%) (Auto) 1% (0-3) 0% (0-3) Neutrophils # (Auto) 5.8x10^3uL (1.8-7.7) 6.3x10^3uL (1.8-7.7) Lymphocytes # (Auto) 0.5x10^3/uL (1.0-4.8) 0.5x10^3/uL (1.0-4.8) Monocytes # (Auto) 0.3x10^3/uL (0.0-1.1) 0.3x10^3/uL (0.0-1.1) Eosinophils # (Auto) 0.1x10^3/uL (0.0-0.7) 0.0x10^3/uL (0.0-0.7) Basophils # (Auto) 0.1x10^3/uL (0.0-0.2) 0.0x10^3/uL (0.0-0.2) Glucose (Fingerstick) 274mg/dL (70-99) 332mg/dL (70-99) Segmented Neutrophils % 87% (35-66) Band Neutrophils % 1% (0-9) Lymphocytes % 5% (24-48) Monocytes % 3% (0-10) Eosinophils % 4% (0-5) Platelet Estimate Adequate (ADEQUATE) Sodium Level 131mmol/L (136-145) Potassium Level 4.3mmol/L (3.5-5.1) Chloride Level 95mmol/L (98-107) Carbon Dioxide Level 27mmol/L (21-32) Anion Gap 9 (6-14) Blood Urea Nitrogen 48mg/dL (7-20) Creatinine 4.9mg/dL (0.6-1.0) Estimated GFR (Cockcroft-Gault) 9.1 BUN/Creatinine Ratio 10 (6-20) Glucose Level 368mg/dL (70-99) Calcium Level 7.6mg/dL (8.5-10.1) Phosphorus Level 6.2mg/dL (2.6-4.7) Magnesium Level 2.1mg/dL (1.8-2.4) Total Bilirubin 0.8mg/dL (0.2-1.0) Aspartate Amino Transf (AST/SGOT) 39U/L (15-37) Alanine Aminotransferase (ALT/SGPT) 32U/L (14-59) Alkaline Phosphatase 278U/L (46-116) Total Protein 6.9g/dL (6.4-8.2) Albumin 1.7g/dL (3.4-5.0) Albumin/Globulin Ratio 0.3 (1.0-1.7) Test 07/14/16 11:37 07/14/16 16:21 07/14/16 21:00 07/14/16 22:28 Glucose (Fingerstick) 348mg/dL (70-99) 328mg/dL (70-99) 402mg/dL (70-99) 349mg/dL (70-99) Test 07/15/16 05:20 07/15/16 07:55 Random Vancomycin Level 16.1mcg/mL Glucose (Fingerstick) 333mg/dL (70-99) Laboratory Tests Test 07/14/16 11:37 07/14/16 16:21 07/14/16 21:00 07/14/16 22:28 Glucose (Fingerstick) 348mg/dL (70-99) 328mg/dL (70-99) 402mg/dL (70-99) 349mg/dL (70-99) Test 07/15/16 05:20 07/15/16 07:55 Random Vancomycin Level 16.1mcg/mL Glucose (Fingerstick) 333mg/dL (70-99) Microbiology 07/11/16 Blood Culture - Preliminary, Resulted NO GROWTH AFTER 3 DAYS 07/08/16 Fecal Leukocyte Stain - Final, Complete 07/06/16 Urine Culture - Final, Complete 07/06/16 Urine Culture Result 1 (NEGRITO) - Final, Complete 07/06/16 Gram Stain - Final, Complete Medications Current Medications Sodium Chloride (Iv Sodium Chloride 0.9% 500ml Bag) 500 ml @ 1,000 mls/hr 1X ONCE IV Last administered on 07/06/16 13:33; Start 07/06/16 at 12:45; Stop 01/12 at 13:14; Status DC Ondansetron HCl (Zofran) 4 mg 1X ONCE IV Last administered on 07/06/16 13:33 ; Start 07/06/16 at 12:45; Stop 07/06/16 at 12:46; Status DC Vancomycin HCl (Vanco Per Pharmacy) 1 each PRN DAILY PRN MC SEE COMMENTS Last administered on 07/15/16 06:37; Start 07/06/16 at 14:00 Piperacillin Sod/ Tazobactam Sod (Zosyn Per Pharmacy) 1 each PRN DAILY PRN MC SEE COMMENTS; Start 07/06/16 at 14:00; Stop 07/08/16 at 09:55; Status DC Levofloxacin/ Dextrose 1 each 1 each PRN DAILY PRN MC SEE COMMENTS; Start 07/06 at 14:00; Stop 07/08/16 at 09:55; Status DC Vancomycin HCl/ Sodium Chloride (Iv Sodium Chloride 0.9% 500ml Bag) 500 ml @ 250 mls/hr 1X ONCE IV Last administered on 07/06/16 15:03; Start 07/06/16 at 14:15; Stop 07/06/16 at 16:14; Status DC Ondansetron HCl (Zofran) 4 mg PRN Q8HRS PRN IV NAUSEA/VOMITING; Start 07/06/16 at 14:30; Stop 07/07/16 at 14:29; Status DC Morphine Sulfate 2 mg PRN Q2HR PRN IV PAIN; Start 07/06/16 at 14:30; Stop 07/07 at 14:29; Status DC Acetaminophen 650 mg 650 mg PRN Q4HRS PRN PO FEVER Last administered on 05:17; Start 07/06/16 at 14:30; Stop 07/07/16 at 14:29; Status DC Piperacillin Sod/ Tazobactam Sod 2.25 gm/Sodium Chloride 50 ml @ 100 mls/hr Q8HRS IV Last administered on 07/08/16 05:17; Start 07/06/16 at 15:00; Stop at 09:55; Status DC Levofloxacin/ Dextrose (LEVAQUIN 500mg PREMIX) 100 ml @ 100 mls/hr Q48H IV Last administered on 07/06/16 17:36; Start 07/06/16 at 15:00; Stop 07/08/16 at 09:55; Status DC Darbepoetin Naif 60 mcg 60 mcg WEEKLYHS SQ Last administered on 07/13/16 22:41 ; Start 07/06/16 at 21:00 Sodium Chloride (Iv Sodium Chloride 0.9% 1000ml Bag) 1,000 ml @ 1,000 mls/hr Q1H PRN IV hypotension; Start 07/06/16 at 23:29; Stop 07/07/16 at 05:28; Status DC Sodium Chloride (Normal Saline Flush) 10 ml 1X PRN PRN IV AP catheter pack; Start 07/06/16 at 23:30; Stop 07/07/16 at 23:29; Status DC Sodium Chloride (Normal Saline Flush) 10 ml 1X PRN PRN IV SAMPLE COLLECTOR catheter pack; Start 07/06/16 at 23:30; Stop 07/07/16 at 23:29; Status DC Info (PHARMACY MONITORING -- do not chart) 1 each PRN DAILY PRN MC SEE COMMENTS ; Start 07/06/16 at 23:30; Stop 07/09/16 at 21:17; Status DC Info 1 each 1 each PRN DAILY PRN MC SEE COMMENTS; Start 07/06/16 at 23:30; Stop 07/07/16 at 13:09; Status DC Vancomycin HCl/ Sodium Chloride (Iv Sodium Chloride 0.9% 250ml) 250 ml @ 250 mls/hr 1X ONCE IV Last administered on 07/07/16 06:36; Start 07/07/16 at 06: 30; Stop 07/07/16 at 07:29; Status DC Nystatin (Nystop) 1 stephan BID TP Last administered on 07/14/16 21:00; Start 02/12 at 14:00 Oxycodone HCl (Roxicodone) 5 mg PRN Q4HRS PRN PO PAIN; Start 07/07/16 at 18:00 ; Stop 07/07/16 at 18:38; Status DC Acetaminophen (Tylenol) 650 mg PRN Q6HRS PRN PO MILD PAIN / TEMP Last administered on 07/08/16 04:45; Start 07/07/16 at 18:45 Tramadol HCl (Ultram) 50 mg PRN Q6HRS PRN PO MODERATE PAIN Last administered on 07/13/16 22:43; Start 07/07/16 at 18:45 Acetaminophen/ Hydrocodone Bitart (Lortab 5/325) 1 tab PRN Q4HRS PRN PO SEVERE PAIN Last administered on 07/13/16 22:42; Start 07/08/16 at 09:30 Vancomycin HCl 1 each 1X ONCE MC Last administered on 07/09/16 05:31; Start 07/09/16 at 05:00; Stop 07/09/16 at 05:01; Status DC Amiodarone HCl (Cordarone) 200 mg BID PO Last administered on 07/14/16 22:08; Start 07/08/16 at 21:00 Aripiprazole (Abilify) 2.5 mg DAILY PO Last administered on 07/14/16 09:19; Start 07/09/16 at 09:00 Aspirin (Ecotrin) 81 mg DAILY PO Last administered on 07/14/16 09:10; Start at 15:00 Atorvastatin Calcium (Lipitor) 20 mg HS PO Last administered on 07/14/16 22:08 ; Start 07/08/16 at 21:00 Buspirone HCl (Buspar) 5 mg TID PO Last administered on 07/14/16 22:08; Start 07/08/16 at 15:00 Clonidine HCl (Catapres) 0.2 mg DAILY PO Last administered on 07/14/16 09:09; Start 07/09/16 at 09:00 Docusate Sodium (Colace) 100 mg BID PO Last administered on 07/13/16 22:41; Start 07/08/16 at 21:00 Ferrous Sulfate (Feosol) 325 mg DAILY PO Last administered on 07/14/16 09:12; Start 07/09/16 at 09:00 Heparin Sodium (Porcine) 5,000 unit TID SQ Last administered on 07/14/16 22:11 ; Start 07/08/16 at 15:00 Albuterol/ Ipratropium (Duoneb) 3 ml PRN QID PRN NEB SHORTNESS OF BREATH; Start 07/08/16 at 14:45 Labetalol HCl (Normodyne) 10 mg PRN BID PRN IVP HYPERTENSION, SEE COMMENTS; Start 07/08/16 at 15:15 Nystatin (Nystop) 1 stephan BID TP ; Start 07/08/16 at 21:00; Status Cancel Mirtazapine (Remeron) 7.5 mg DAILY PO Last administered on 07/14/16 09:13; Start 07/09/16 at 09:00 Polyethylene Glycol (miraLAX PACKET) 17 gm DAILY PO Last administered on 09:00; Start 07/09/16 at 09:00 Sennosides (Senna) 8.6 mg DAILY PO Last administered on 07/10/16 14:45; Start 07/09/16 at 09:00 Non-Formulary Medication 100 mcg WEEKLY SQ TO TREAT ANEMIA; Start 07/15/16 at 09 :00; Status UNV Diltiazem HCl (Cardizem 24hr Cd) 360 mg DAILY PO Last administered on 09:12; Start 07/09/16 at 09:00 Escitalopram Oxalate (Lexapro) 20 mg DAILY PO Last administered on 07/14/16 09 :11; Start 07/09/16 at 09:00 Vitamin B Complex/ Vitamin C (Zoe-Kiran) 1 tab DAILY PO Last administered on 09:08; Start 07/09/16 at 09:00 Gabapentin (Neurontin) 600 mg BID PO Last administered on 07/14/16 22:08; Start 07/08/16 at 21:00 Non-Formulary Medication 9 mg DAILY PO ; Start 07/09/16 at 09:00; Status UNV Insulin Aspart (Novolog) 10 units TIDAC SQ Last administered on 07/14/16 09:26 ; Start 07/08/16 at 16:30; Stop 07/14/16 at 11:48; Status DC Heparin Sodium (Porcine) (Heparin Sodium) 10,000 unit STK-MED ONCE .ROUTE ; Start 07/09/16 at 11:22; Stop 07/09/16 at 11:23; Status DC Lidocaine/Sodium Bicarbonate 20 ml 20 ml STK-MED ONCE IJ ; Start 07/09/16 at 11: 22; Stop 07/09/16 at 11:23; Status DC Heparin Sodium/ Sodium Chloride 500 ml @ As Directed STK-MED ONCE .ROUTE ; Start 07/09/16 at 11:22; Stop 07/09/16 at 11:23; Status DC Heparin Sodium/ Sodium Chloride 60 unit 1X ONCE IV Last administered on 12:21; Start 07/09/16 at 11:45; Stop 07/09/16 at 11:51; Status DC Heparin Sodium (Porcine) (Heparin Sodium) 2,500 unit 1X ONCE INT CAT Last administered on 07/09/16 12:21; Start 07/09/16 at 11:45; Stop 07/09/16 at 11:51 ; Status DC Lidocaine/Sodium Bicarbonate (Buffered Lidocaine 1%) 3 ml 1X ONCE IJ Last administered on 07/09/16 12:20; Start 07/09/16 at 11:45; Stop 07/09/16 at 11:51 ; Status DC Methylprednisolone Acetate (Depo-Medrol 40mg Vial) 40 mg 1X ONCE IM ; Start at 14:45; Stop 07/09/16 at 14:59; Status DC Bupivacaine HCl 10 ml 10 ml 1X ONCE IJ ; Start 07/09/16 at 14:45; Stop at 14:59; Status DC Sodium Chloride 1,000 ml @ 1,000 mls/hr Q1H PRN IV hypotension; Start 07/09/16 at 15:15; Stop 07/09/16 at 21:14; Status DC Albumin Human (Albuminar) 200 ml @ 200 mls/hr 1X PRN PRN IV Hypotension; Start 07/09/16 at 15:15; Stop 07/09/16 at 21:14; Status DC Acetaminophen (Tylenol) 500 mg 1X PRN PRN PO MILD PAIN / TEMP; Start 07/09/16 at 15:15; Stop 07/10/16 at 15:14; Status DC Diphenhydramine HCl (Benadryl) 25 mg 1X PRN PRN IV ITCHING; Start 07/09/16 at 15:15; Stop 07/10/16 at 15:14; Status DC Diphenhydramine HCl (Benadryl) 25 mg 1X PRN PRN IV ITCHING; Start 07/09/16 at 15:15; Stop 07/10/16 at 15:14; Status DC Labetalol HCl (Normodyne) 10 mg PRN Q1HR PRN IVP SBP > 180; Start 07/09/16 at 15:15; Stop 07/10/16 at 15:14; Status DC Clonidine HCl (Catapres) 0.1 mg 1X PRN PRN PO SBP > 180; Start 07/09/16 at 15: 15; Stop 07/10/16 at 15:14; Status DC Info (PHARMACY MONITORING -- do not chart) 1 each PRN DAILY PRN MC SEE COMMENTS ; Start 07/09/16 at 15:15; Status Cancel Vancomycin HCl 1 each 1 each 1X ONCE MC ; Start 07/11/16 at 06:00; Stop at 06:01; Status DC Sodium Chloride (Iv Sodium Chloride 0.9% 1000ml Bag) 1,000 ml @ 1,000 mls/hr Q1H PRN IV hypotension; Start 07/10/16 at 10:45; Stop 07/10/16 at 16:44; Status DC Sodium Chloride (Normal Saline Flush) 10 ml 1X PRN PRN IV AP catheter pack; Start 07/10/16 at 10:45; Stop 07/11/16 at 10:44; Status DC Sodium Chloride (Normal Saline Flush) 10 ml 1X PRN PRN IV SAMPLE COLLECTOR catheter pack; Start 07/10/16 at 10:45; Stop 07/11/16 at 10:44; Status DC Info (PHARMACY MONITORING -- do not chart) 1 each PRN DAILY PRN MC SEE COMMENTS ; Start 07/10/16 at 10:45; Stop 07/10/16 at 14:25; Status DC Info 1 each 1 each PRN DAILY PRN MC SEE COMMENTS; Start 07/10/16 at 10:45; Status Cancel Lactated Ringer's 1,000 ml @ 50 mls/hr Q20H IV ; Start 07/13/16 at 07:00; Stop 07/13/16 at 18:59; Status Cancel Vancomycin HCl 500 mg/Sodium Chloride 100 ml @ 100 mls/hr 1X ONCE IV Last administered on 07/11/16t 18:00; Start 07/11/16 at 18:00; Stop 07/11/16 at 18:59 ; Status DC Sodium Chloride 1,000 ml @ 1,000 mls/hr Q1H PRN IV hypotension; Start 07/13/16 at 08:26; Stop 07/13/16 at 14:25; Status DC Albumin Human (Albuminar) 200 ml @ 200 mls/hr 1X PRN PRN IV Hypotension; Start 07/13/16 at 08:30; Stop 07/13/16 at 14:29; Status DC Midodrine (Proamatine) 5 mg 1X ONCE PO ; Start 07/13/16 at 08:30; Stop at 08:35; Status DC Acetaminophen (Tylenol) 500 mg 1X PRN PRN PO MILD PAIN / TEMP; Start 07/13/16 at 08:30; Stop 07/14/16 at 08:29; Status DC Diphenhydramine HCl (Benadryl) 25 mg 1X PRN PRN IV ITCHING; Start 07/13/16 at 08:30; Stop 07/14/16 at 08:29; Status DC Diphenhydramine HCl (Benadryl) 25 mg 1X PRN PRN IV ITCHING; Start 07/13/16 at 08:30; Stop 07/14/16 at 08:29; Status DC Labetalol HCl (Normodyne) 10 mg PRN Q1HR PRN IVP SBP > 180; Start 07/13/16 at 08:30; Stop 07/14/16 at 08:29; Status DC Clonidine HCl 0.1 mg 0.1 mg 1X PRN PRN PO SBP > 180; Start 07/13/16 at 08:30; Stop 07/14/16 at 08:29; Status DC Sodium Chloride (Iv Sodium Chloride 0.9% 1000ml Bag) 1,000 ml @ 400 mls/hr Q2H30M PRN IV PATENCY; Start 07/13/16 at 08:26; Stop 07/13/16 at 20:25; Status DC Info 1 each 1 each PRN DAILY PRN MC SEE COMMENTS; Start 07/13/16 at 08:30 Sodium Chloride 1,000 ml @ 0 mls/hr Q0M IV Last administered on 07/13/16t 12: 39; Start 07/13/16 at 12:15 Propofol (Diprivan) 40 ml @ As Directed STK-MED ONCE IV ; Start 07/13/16 at 12: 27; Stop 07/13/16 at 12:28; Status DC Lidocaine HCl (Xylocaine-Mpf 1% Vial) 5 ml STK-MED ONCE .ROUTE ; Start 07/13/16 at 12:27; Stop 07/13/16 at 12:28; Status DC Lidocaine HCl (Viscous Lidocaine) 15 ml STK-MED ONCE .ROUTE ; Start 07/13/16 at 12:28; Stop 07/13/16 at 12:29; Status DC Benzocaine (Hurricaine One) 1 spray STK-MED ONCE .ROUTE ; Start 07/13/16 at 12: 28; Stop 07/13/16 at 12:29; Status DC Lidocaine HCl 30 stephan 30 stephan STK-MED ONCE TP ; Start 07/13/16 at 12:28; Stop at 12:29; Status DC Vancomycin HCl 500 mg/Sodium Chloride 100 ml @ 100 mls/hr 1X ONCE IV Last administered on 07/13/16 16:00; Start 07/13/16 at 16:00; Stop 07/13/16 at 16:59 ; Status DC Albumin Human (Albuminar) 100 ml @ 100 mls/hr TID IV Last administered on 07/15 08:08; Start 07/14/16 at 10:00; Stop 07/15/16 at 21:59 Calcium Acetate (Phoslo) 1,334 mg TIDWMEALS PO Last administered on 07/14/16 17:08; Start 07/14/16 at 12:00 Insulin Aspart (Novolog) 18 units TIDAC SQ Last administered on 07/15/16 08:12 ; Start 07/14/16 at 12:10 Insulin Detemir (Levemir) 20 units DAILY10 SQ Last administered on 07/14/16 12 :22; Start 07/14/16 at 12:00 Loperamide HCl (Imodium) 2 mg PRN Q4HRS PRN PO DIARRHEA Last administered on 17:08; Start 07/14/16 at 16:30 Vancomycin HCl 1 each 1X ONCE MC ; Start 07/15/16 at 06:00; Stop 07/15/16 at 06 :01; Status DC Fentanyl Citrate (Fentanyl 2ml Vial) 25 mcg PRN Q5MIN PRN IV MILD PAIN; Start 07/15/16 at 07:00; Stop 07/16/16 at 06:59 Fentanyl Citrate (Fentanyl 2ml Vial) 50 mcg PRN Q5MIN PRN IV MODERATE PAIN; Start 07/15/16 at 07:00; Stop 07/16/16 at 06:59 Morphine Sulfate 1 mg PRN Q10MIN PRN IV SEVERE PAIN; Start 07/15/16 at 07:00; Stop 07/16/16 at 06:59 Lidocaine HCl 2 ml PRN 1X PRN ID PRIOR TO IV START; Start 07/15/16 at 07:00; Stop 07/16/16 at 06:59 Hydromorphone HCl (Dilaudid) 0.5 mg PRN Q10MIN PRN IV SEV PAIN, Second choice; Start 07/15/16 at 07:00; Stop 07/16/16 at 06:59 Prochlorperazine Edisylate 5 mg 5 mg PACU PRN PRN IV NAUSEA, MRX1; Start at 07:00; Stop 07/16/16 at 06:59 Sodium Chloride 1,000 ml @ 0 mls/hr Q0M IV ; Start 07/15/16 at 13:00 Vancomycin HCl/ Sodium Chloride (Iv Sodium Chloride 0.9% 100ml) 100 ml @ 100 mls/hr QMWF IV ; Start 07/15/16 at 16:00 Lidocaine HCl 20 ml STK-MED ONCE .ROUTE ; Start 07/15/16 at 07:14; Stop at 07:15; Status DC Cellulose 1 each STK-MED ONCE .ROUTE ; Start 07/15/16 at 07:16; Stop 07/15/16 at 07:17; Status DC Papaverine HCl 60 mg 60 mg STK-MED ONCE .ROUTE ; Start 07/15/16 at 07:16; Stop 07/15/16 at 07:17; Status DC Heparin Sodium (Porcine) 5000 unit/Sodium Chloride 505 ml @ 505 mls/hr 1X PERIOP ONCE IRR ; Start 07/15/16 at 09:00; Stop 07/15/16 at 09:59 Cefazolin Sodium/ Sodium Chloride (Ancef/Iv Sodium Chloride 0.9% 500ml Bag) 500 ml @ 500 mls/hr 1X PERIOP ONCE IRR ; Start 07/15/16 at 09:00; Stop 07/15/16 at 09:59 Active Scripts Active Reported Amiodarone Hcl 200 Mg Tablet 200 Mg PO BID Aspir 81 (Aspirin) 81 Mg Tablet.dr 81 Mg PO DAILY Atorvastatin Calcium 20 Mg Tablet 20 Mg PO HS Cardizem Cd (Diltiazem Hcl) 360 Mg Cap.er.24h 360 Mg PO DAILY Docusate Sodium 100 Mg Capsule 100 Mg PO BID Melatonin 3 Mg Tablet 9 Mg PO DAILY Polyethylene Glycol 3350 17 Gm Powd.pack 17 Gm PO DAILY Senna (Sennosides) 8.6 Mg Tablet 8.6 Mg PO DAILY Clonidine Hcl 0.2 Mg Tablet 0.2 Mg PO DAILY Micro-Guard (Miconazole Nitrate) 85 Gm Powder 85 Gm TP BID Humalog (Insulin Lispro) 100 Unit/1 Ml Vial 100 Unit SQ Buspirone Hcl 5 Mg Tablet 5 Mg PO TID Aranesp Vial (Darbepoetin Naif In Polysorbat) 100 Mcg/1 Ml Vial 100 Mcg SQ WEEKLY Nephron Fa Tablet (Fe Fumarate/Dinorah/Fa/Bcomp&C) 1 Each Tablet 1 Each PO DAILY Ferrous Sulfate 325 Mg Tablet 1 Tab PO DAILY Escitalopram Oxalate 20 Mg Tablet 20 Mg PO DAILY Duoneb 0.5-3(2.5) Mg/3 Ml (Albuterol/Ipratropium) 3 Ml Ampul.neb 3 Ml NEB QID PRN Gabapentin 600 Mg Tablet 600 Mg PO BID Mirtazapine 7.5 Mg Tablet 7.5 Mg PO DAILY Abilify (Aripiprazole) 2 Mg Tablet 2.5 Mg PO DAILY Labetalol Hcl 5 Mg/1 Ml Vial 10 Mg IV PRN Heparin Sod 5,000 Unit/ 0.5 Ml (Heparin Sodium,Porcine/Pf) 5,000 Unit/0.5 Ml Vial 5,000 Unit IJ TID Novolin N (Nph, Human Insulin Isophane) 100 Unit/1 Ml Vial 100 Unit SQ PRN Vitals/I & O Vital Sign - Last 24 Hours 07/14/16 07/14/16 07/14/16 07/14/16 09:09 09:12 09:13 11:00 Temp 97.6 97.6 Pulse 98 98 98 74 Resp 18 B/P 133/46 133/46 133/46 138/60 Pulse Ox 95 O2 Delivery Room Air 07/14/16 07/14/16 07/14/16 07/14/16 15:00 19:30 20:00 22:08 Temp 96.5 96.9 96.5 96.9 Pulse 60 59 59 Resp 16 20 B/P 114/45 138/62 138/62 Pulse Ox 96 95 O2 Delivery Room Air Room Air Nasal Cannula O2 Flow Rate 2.0 07/14/16 07/15/16 23:41 03:55 Temp 97.5 97.7 97.5 97.7 Pulse 62 56 Resp 20 20 B/P 133/55 142/61 Pulse Ox 95 92 O2 Delivery Nasal Cannula O2 Flow Rate 2.0 Intake and Output 07/14/16 07/14/16 07/15/16 15:00 23:00 07:00 Intake Total 460 ml 900 ml Balance 460 ml 900 ml Nutrition Consultation Dietary Evaluation: Recommendations by RD: Increase Calorie Intake, Protein supplementation Comments: Resume diet and Novasource renal - 475kcal and 21.6g protein/ serving Expected Outcomes/Goals: to meet >75% est nutr needs Malnutrition Findings: Food and Nutrition Intake (Mod: <75% est energy req 7days Weight Status: Morbidly Obese Fluid Accumulation (Non-Severe: Mild depletion SHAZIA COLEMAN MD Jul 15, 2016 09:05
[2016-07-15] MEDS: AMIODARONE HCL 200 MG TABLET. PO SCH ×2 (09:52→21:16)
[2016-07-15] MEDS: cloNIDine HCL 0.2 MG TABLET PO SCH (09:52)
--- NOTE | 2016-07-15 09:54 | PDOC ---
Infectious Disease Note Subjective Subjective Doing well ROS ROS GEN: Denies fevers, chills, sweats HEENT: Denies blurred vision, sore throat CV: Denies chest pain RESP: Denies shortness of air, cough GI: Denies n/v/d NEURO: Denies confusion, dizziness MSK: Denies weakness, joint pain/swelling Vital Sign Vital Signs Vital Signs Date Time Temp Pulse Resp B/P Pulse Ox O2 Delivery O2 Flow Rate FiO2 07/15/16 08:00 Nasal Cannula 2.0 07/15/16 03:55 97.7 56 20 142/61 92 97.7 Physical Exam PHYSICAL EXAM GENERAL: NAD, Alert. in HD HEENT: PERRL, NECK: Supple, no JVD, no LN LUNGS: Clear HEART: S1S2, no gallop, no murmur ABD: Soft, NT, no organomegaly, no rebound EXT: Trace edema, no cyanosis/Boots [employer]ING: Alert, oriented x 3, no focal neurologic deficit SKIN: No rash IV: Left - clean Labs Lab Laboratory Tests Test 07/14/16 11:37 07/14/16 16:21 07/14/16 21:00 07/14/16 22:28 Glucose (Fingerstick) 348mg/dL (70-99) 328mg/dL (70-99) 402mg/dL (70-99) 349mg/dL (70-99) Test 07/15/16 05:20 07/15/16 07:55 Random Vancomycin Level 16.1mcg/mL Glucose (Fingerstick) 333mg/dL (70-99) Objective Assessment MRSA Sepsis. POA - no peripheral stigmata. 07/11 neg so far. TO ? veg on HD cath -Positive BC 07/06, 07/08 Infected HDC catheter. MRSA -s/p placement temp [facility] HDC 07/09 -s/p removal [facility] HDC 07/07 Encephalopathy ESRD Obesity Steroid injection, 07/09 Plan Plan of Care Cont vanc Vascular eval performed F/u repeat BC Await IR EDITH Rosales MD Jul 15, 2016 09:54
--- NOTE | 2016-07-15 10:23 | PDOC ---
Dialysis Progress Note Dialysis Note Dialysis Note Seen on Hemodialysis, tolerating treatment Okay Vitals on Hemodialysis: 183/74 66 afeb General Appearance: Awake: Alert Oriented x 3 Neck: No JVD or JVP Chest: CTA [place] Heart: S1 S2 Abdomen - Soft NTND Extremities - + Edema ESRD : Dialysis as below F 180 NR 3.5 Hrs 3 K 2.5 Ca 140 Na 35 HC03 Qb 350 + Qd 500+ Heparin 0 Units Uf 2-3 Kgs or to dry weight as tolerated May give 25-50 gms of 25% Albumin if needed to maintain Hemodynamic stability Treatment plan reviewed and discussed with horse wrangler Vitals Vital Signs Vital Signs Date Time Temp Pulse Resp B/P Pulse Ox O2 Delivery O2 Flow Rate FiO2 07/15/16 09:54 80 155/80 07/15/16 08:00 Nasal Cannula 2.0 07/15/16 03:55 97.7 20 92 97.7 Labs Last Labs Laboratory Tests Test 07/13/16 10:46 07/13/16 17:32 07/14/16 04:10 07/14/16 08:33 White Blood Count 6.9x10^3/uL (4.0-11.0) 7.2x10^3/uL (4.0-11.0) Red Blood Count 4.03x10^6/uL (3.50-5.40) 3.80x10^6/uL (3.50-5.40) Hemoglobin 10.7g/dL (12.0-15.5) 10.1g/dL (12.0-15.5) Hematocrit 33.0% (36.0-47.0) 31.3% (36.0-47.0) Mean Corpuscular Volume 82fL (79-100) 83fL (79-100) Mean Corpuscular Hemoglobin 27pg (25-35) 27pg (25-35) Mean Corpuscular Hemoglobin Concent 33g/dL (31-37) 32g/dL (31-37) Red Cell Distribution Width 16.0% (11.5-14.5) 16.0% (11.5-14.5) Platelet Count 234x10^3/uL (140-400) 237x10^3/uL (140-400) Neutrophils (%) (Auto) 85% (31-73) 88% (31-73) Lymphocytes (%) (Auto) 8% (24-48) 6% (24-48) Monocytes (%) (Auto) 5% (0-9) 5% (0-9) Eosinophils (%) (Auto) 2% (0-3) 1% (0-3) Basophils (%) (Auto) 1% (0-3) 0% (0-3) Neutrophils # (Auto) 5.8x10^3uL (1.8-7.7) 6.3x10^3uL (1.8-7.7) Lymphocytes # (Auto) 0.5x10^3/uL (1.0-4.8) 0.5x10^3/uL (1.0-4.8) Monocytes # (Auto) 0.3x10^3/uL (0.0-1.1) 0.3x10^3/uL (0.0-1.1) Eosinophils # (Auto) 0.1x10^3/uL (0.0-0.7) 0.0x10^3/uL (0.0-0.7) Basophils # (Auto) 0.1x10^3/uL (0.0-0.2) 0.0x10^3/uL (0.0-0.2) Glucose (Fingerstick) 274mg/dL (70-99) 332mg/dL (70-99) Segmented Neutrophils % 87% (35-66) Band Neutrophils % 1% (0-9) Lymphocytes % 5% (24-48) Monocytes % 3% (0-10) Eosinophils % 4% (0-5) Platelet Estimate Adequate (ADEQUATE) Sodium Level 131mmol/L (136-145) Potassium Level 4.3mmol/L (3.5-5.1) Chloride Level 95mmol/L (98-107) Carbon Dioxide Level 27mmol/L (21-32) Anion Gap 9 (6-14) Blood Urea Nitrogen 48mg/dL (7-20) Creatinine 4.9mg/dL (0.6-1.0) Estimated GFR (Cockcroft-Gault) 9.1 BUN/Creatinine Ratio 10 (6-20) Glucose Level 368mg/dL (70-99) Calcium Level 7.6mg/dL (8.5-10.1) Phosphorus Level 6.2mg/dL (2.6-4.7) Magnesium Level 2.1mg/dL (1.8-2.4) Total Bilirubin 0.8mg/dL (0.2-1.0) Aspartate Amino Transf (AST/SGOT) 39U/L (15-37) Alanine Aminotransferase (ALT/SGPT) 32U/L (14-59) Alkaline Phosphatase 278U/L (46-116) Total Protein 6.9g/dL (6.4-8.2) Albumin 1.7g/dL (3.4-5.0) Albumin/Globulin Ratio 0.3 (1.0-1.7) Test 07/14/16 11:37 07/14/16 16:21 07/14/16 21:00 07/14/16 22:28 Glucose (Fingerstick) 348mg/dL (70-99) 328mg/dL (70-99) 402mg/dL (70-99) 349mg/dL (70-99) Test 07/15/16 05:20 07/15/16 07:55 Random Vancomycin Level 16.1mcg/mL Glucose (Fingerstick) 333mg/dL (70-99) Laboratory Tests Test 07/14/16 11:37 07/14/16 16:21 07/14/16 21:00 07/14/16 22:28 Glucose (Fingerstick) 348mg/dL (70-99) 328mg/dL (70-99) 402mg/dL (70-99) 349mg/dL (70-99) Test 07/15/16 05:20 07/15/16 07:55 Random Vancomycin Level 16.1mcg/mL Glucose (Fingerstick) 333mg/dL (70-99) Assessment Assessment Problems Medical Problems: (1) Anemia Status: Acute (2) End stage renal disease Status: Acute (3) Generalized weakness Status: Acute (4) Healthcare-associated pneumonia Status: Acute (5) Sepsis Status: Acute (6) Transient hypotension Status: Acute (7) Urinary tract infection Status: Acute Problems: Plan Plan of Care Problems Medical Problems: (1) Anemia Status: Acute (2) End stage renal disease Status: Acute (3) Generalized weakness Status: Acute (4) Healthcare-associated pneumonia Status: Acute (5) Sepsis Status: Acute (6) Transient hypotension Status: Acute (7) Urinary tract infection Status: Acute MESHA SIEGEL MD Jul 15, 2016 10:23
--- NOTE | 2016-07-15 10:40 | PDOC ---
PROGRESS NOTES Chief Complaint Chief Complaint cc: Diarrhea, MRSA sepsis ESRD on dialysis Encephalopathy Diabetes mellitus morbid obese, BMI 47, down almost 150lbs from max weight Hyperlipidemia Hypertension KRYSTLE Infected HDC catheter. MRSA -s/p placement temp [facility] HDC 07/09 -s/p removal [facility] 07/07 Encephalopathy ESRD History of Present Illness History of Present Illness OOB to chair, use commode, wound consult to eval backside blood sugar up today, liberalize diet increase insulin dose, add levemir SSI labs reviewed, d/w and her brother, will need SNU, I discussed with social work and care coordination x3 Vitals Vitals Vital Signs Date Time Temp Pulse Resp B/P Pulse Ox O2 Delivery O2 Flow Rate FiO2 07/15/16 09:54 80 155/80 07/15/16 08:00 Nasal Cannula 2.0 07/15/16 03:55 97.7 20 92 97.7 Physical Exam General: Alert, Cooperative Heart: Regular rate, Normal S1, Normal S2 Lungs: Crackles, Other (No chest retractions were present) Abdomen: Soft, No tenderness Extremities: No clubbing, No cyanosis Skin: No rashes, No breakdown Labs LABS Laboratory Tests Test 07/14/16 11:37 07/14/16 16:21 07/14/16 21:00 07/14/16 22:28 Glucose (Fingerstick) 348mg/dL (70-99) 328mg/dL (70-99) 402mg/dL (70-99) 349mg/dL (70-99) Test 07/15/16 05:20 07/15/16 07:55 Random Vancomycin Level 16.1mcg/mL Glucose (Fingerstick) 333mg/dL (70-99) Review of Systems Review of Systems weakness abd pain Assessment and Plan Assessmemt and Plan Problems Medical Problems: (1) Anemia Status: Acute (2) End stage renal disease Status: Acute (3) Generalized weakness Status: Acute (4) Healthcare-associated pneumonia Status: Acute (5) Sepsis Status: Acute (6) Transient hypotension Status: Acute (7) Urinary tract infection Status: Acute Problems: Comment Review of Relevant I have reviewed the following items dominga (where applicable) has been applied. Labs Laboratory Tests Test 07/13/16 10:46 07/13/16 17:32 07/14/16 04:10 07/14/16 08:33 White Blood Count 6.9x10^3/uL (4.0-11.0) 7.2x10^3/uL (4.0-11.0) Red Blood Count 4.03x10^6/uL (3.50-5.40) 3.80x10^6/uL (3.50-5.40) Hemoglobin 10.7g/dL (12.0-15.5) 10.1g/dL (12.0-15.5) Hematocrit 33.0% (36.0-47.0) 31.3% (36.0-47.0) Mean Corpuscular Volume 82fL (79-100) 83fL (79-100) Mean Corpuscular Hemoglobin 27pg (25-35) 27pg (25-35) Mean Corpuscular Hemoglobin Concent 33g/dL (31-37) 32g/dL (31-37) Red Cell Distribution Width 16.0% (11.5-14.5) 16.0% (11.5-14.5) Platelet Count 234x10^3/uL (140-400) 237x10^3/uL (140-400) Neutrophils (%) (Auto) 85% (31-73) 88% (31-73) Lymphocytes (%) (Auto) 8% (24-48) 6% (24-48) Monocytes (%) (Auto) 5% (0-9) 5% (0-9) Eosinophils (%) (Auto) 2% (0-3) 1% (0-3) Basophils (%) (Auto) 1% (0-3) 0% (0-3) Neutrophils # (Auto) 5.8x10^3uL (1.8-7.7) 6.3x10^3uL (1.8-7.7) Lymphocytes # (Auto) 0.5x10^3/uL (1.0-4.8) 0.5x10^3/uL (1.0-4.8) Monocytes # (Auto) 0.3x10^3/uL (0.0-1.1) 0.3x10^3/uL (0.0-1.1) Eosinophils # (Auto) 0.1x10^3/uL (0.0-0.7) 0.0x10^3/uL (0.0-0.7) Basophils # (Auto) 0.1x10^3/uL (0.0-0.2) 0.0x10^3/uL (0.0-0.2) Glucose (Fingerstick) 274mg/dL (70-99) 332mg/dL (70-99) Segmented Neutrophils % 87% (35-66) Band Neutrophils % 1% (0-9) Lymphocytes % 5% (24-48) Monocytes % 3% (0-10) Eosinophils % 4% (0-5) Platelet Estimate Adequate (ADEQUATE) Sodium Level 131mmol/L (136-145) Potassium Level 4.3mmol/L (3.5-5.1) Chloride Level 95mmol/L (98-107) Carbon Dioxide Level 27mmol/L (21-32) Anion Gap 9 (6-14) Blood Urea Nitrogen 48mg/dL (7-20) Creatinine 4.9mg/dL (0.6-1.0) Estimated GFR (Cockcroft-Gault) 9.1 BUN/Creatinine Ratio 10 (6-20) Glucose Level 368mg/dL (70-99) Calcium Level 7.6mg/dL (8.5-10.1) Phosphorus Level 6.2mg/dL (2.6-4.7) Magnesium Level 2.1mg/dL (1.8-2.4) Total Bilirubin 0.8mg/dL (0.2-1.0) Aspartate Amino Transf (AST/SGOT) 39U/L (15-37) Alanine Aminotransferase (ALT/SGPT) 32U/L (14-59) Alkaline Phosphatase 278U/L (46-116) Total Protein 6.9g/dL (6.4-8.2) Albumin 1.7g/dL (3.4-5.0) Albumin/Globulin Ratio 0.3 (1.0-1.7) Test 07/14/16 11:37 07/14/16 16:21 07/14/16 21:00 07/14/16 22:28 Glucose (Fingerstick) 348mg/dL (70-99) 328mg/dL (70-99) 402mg/dL (70-99) 349mg/dL (70-99) Test 07/15/16 05:20 07/15/16 07:55 Random Vancomycin Level 16.1mcg/mL Glucose (Fingerstick) 333mg/dL (70-99) Laboratory Tests Test 07/14/16 11:37 07/14/16 16:21 07/14/16 21:00 07/14/16 22:28 Glucose (Fingerstick) 348mg/dL (70-99) 328mg/dL (70-99) 402mg/dL (70-99) 349mg/dL (70-99) Test 07/15/16 05:20 07/15/16 07:55 Random Vancomycin Level 16.1mcg/mL Glucose (Fingerstick) 333mg/dL (70-99) Microbiology 07/11/16 Blood Culture - Preliminary, Resulted NO GROWTH AFTER 3 DAYS 07/08/16 Fecal Leukocyte Stain - Final, Complete 07/06/16 Urine Culture - Final, Complete 07/06/16 Urine Culture Result 1 (NEGRITO) - Final, Complete 07/06/16 Gram Stain - Final, Complete Medications Current Medications Sodium Chloride (Iv Sodium Chloride 0.9% 500ml Bag) 500 ml @ 1,000 mls/hr 1X ONCE IV Last administered on 07/06/16 13:33; Start 07/06/16 at 12:45; Stop 01/12 at 13:14; Status DC Ondansetron HCl (Zofran) 4 mg 1X ONCE IV Last administered on 07/06/16 13:33 ; Start 07/06/16 at 12:45; Stop 07/06/16 at 12:46; Status DC Vancomycin HCl (Vanco Per Pharmacy) 1 each PRN DAILY PRN MC SEE COMMENTS Last administered on 07/15/16 06:37; Start 07/06/16 at 14:00 Piperacillin Sod/ Tazobactam Sod (Zosyn Per Pharmacy) 1 each PRN DAILY PRN MC SEE COMMENTS; Start 07/06/16 at 14:00; Stop 07/08/16 at 09:55; Status DC Levofloxacin/ Dextrose 1 each 1 each PRN DAILY PRN MC SEE COMMENTS; Start 07/06 at 14:00; Stop 07/08/16 at 09:55; Status DC Vancomycin HCl/ Sodium Chloride (Iv Sodium Chloride 0.9% 500ml Bag) 500 ml @ 250 mls/hr 1X ONCE IV Last administered on 07/06/16 15:03; Start 07/06/16 at 14:15; Stop 07/06/16 at 16:14; Status DC Ondansetron HCl (Zofran) 4 mg PRN Q8HRS PRN IV NAUSEA/VOMITING; Start 07/06/16 at 14:30; Stop 07/07/16 at 14:29; Status DC Morphine Sulfate 2 mg PRN Q2HR PRN IV PAIN; Start 07/06/16 at 14:30; Stop 07/07 at 14:29; Status DC Acetaminophen 650 mg 650 mg PRN Q4HRS PRN PO FEVER Last administered on 05:17; Start 07/06/16 at 14:30; Stop 07/07/16 at 14:29; Status DC Piperacillin Sod/ Tazobactam Sod 2.25 gm/Sodium Chloride 50 ml @ 100 mls/hr Q8HRS IV Last administered on 07/08/16 05:17; Start 07/06/16 at 15:00; Stop at 09:55; Status DC Levofloxacin/ Dextrose (LEVAQUIN 500mg PREMIX) 100 ml @ 100 mls/hr Q48H IV Last administered on 07/06/16 17:36; Start 07/06/16 at 15:00; Stop 07/08/16 at 09:55; Status DC Darbepoetin Naif 60 mcg 60 mcg WEEKLYHS SQ Last administered on 07/13/16 22:41 ; Start 07/06/16 at 21:00 Sodium Chloride (Iv Sodium Chloride 0.9% 1000ml Bag) 1,000 ml @ 1,000 mls/hr Q1H PRN IV hypotension; Start 07/06/16 at 23:29; Stop 07/07/16 at 05:28; Status DC Sodium Chloride (Normal Saline Flush) 10 ml 1X PRN PRN IV AP catheter pack; Start 07/06/16 at 23:30; Stop 07/07/16 at 23:29; Status DC Sodium Chloride (Normal Saline Flush) 10 ml 1X PRN PRN IV BOOKSEAMER BLINDSTITCH catheter pack; Start 07/06/16 at 23:30; Stop 07/07/16 at 23:29; Status DC Info (PHARMACY MONITORING -- do not chart) 1 each PRN DAILY PRN MC SEE COMMENTS ; Start 07/06/16 at 23:30; Stop 07/09/16 at 21:17; Status DC Info 1 each 1 each PRN DAILY PRN MC SEE COMMENTS; Start 07/06/16 at 23:30; Stop 07/07/16 at 13:09; Status DC Vancomycin HCl/ Sodium Chloride (Iv Sodium Chloride 0.9% 250ml) 250 ml @ 250 mls/hr 1X ONCE IV Last administered on 07/07/16 06:36; Start 07/07/16 at 06: 30; Stop 07/07/16 at 07:29; Status DC Nystatin (Nystop) 1 stephan BID TP Last administered on 07/14/16 21:00; Start 02/12 at 14:00 Oxycodone HCl (Roxicodone) 5 mg PRN Q4HRS PRN PO PAIN; Start 07/07/16 at 18:00 ; Stop 07/07/16 at 18:38; Status DC Acetaminophen (Tylenol) 650 mg PRN Q6HRS PRN PO MILD PAIN / TEMP Last administered on 07/08/16 04:45; Start 07/07/16 at 18:45 Tramadol HCl (Ultram) 50 mg PRN Q6HRS PRN PO MODERATE PAIN Last administered on 07/13/16 22:43; Start 07/07/16 at 18:45 Acetaminophen/ Hydrocodone Bitart (Lortab 5/325) 1 tab PRN Q4HRS PRN PO SEVERE PAIN Last administered on 07/13/16 22:42; Start 07/08/16 at 09:30 Vancomycin HCl 1 each 1X ONCE MC Last administered on 07/09/16 05:31; Start 07/09/16 at 05:00; Stop 07/09/16 at 05:01; Status DC Amiodarone HCl (Cordarone) 200 mg BID PO Last administered on 07/15/16 09:52; Start 07/08/16 at 21:00 Aripiprazole (Abilify) 2.5 mg DAILY PO Last administered on 07/14/16 09:19; Start 07/09/16 at 09:00 Aspirin (Ecotrin) 81 mg DAILY PO Last administered on 07/14/16 09:10; Start at 15:00 Atorvastatin Calcium (Lipitor) 20 mg HS PO Last administered on 07/14/16 22:08 ; Start 07/08/16 at 21:00 Buspirone HCl (Buspar) 5 mg TID PO Last administered on 07/14/16 22:08; Start 07/08/16 at 15:00 Clonidine HCl (Catapres) 0.2 mg DAILY PO Last administered on 07/15/16 09:52; Start 07/09/16 at 09:00 Docusate Sodium (Colace) 100 mg BID PO Last administered on 07/13/16 22:41; Start 07/08/16 at 21:00 Ferrous Sulfate (Feosol) 325 mg DAILY PO Last administered on 07/14/16 09:12; Start 07/09/16 at 09:00 Heparin Sodium (Porcine) 5,000 unit TID SQ Last administered on 07/14/16 22:11 ; Start 07/08/16 at 15:00 Albuterol/ Ipratropium (Duoneb) 3 ml PRN QID PRN NEB SHORTNESS OF BREATH; Start 07/08/16 at 14:45 Labetalol HCl (Normodyne) 10 mg PRN BID PRN IVP HYPERTENSION, SEE COMMENTS; Start 07/08/16 at 15:15 Nystatin (Nystop) 1 stephan BID TP ; Start 07/08/16 at 21:00; Status Cancel Mirtazapine (Remeron) 7.5 mg DAILY PO Last administered on 07/14/16 09:13; Start 07/09/16 at 09:00 Polyethylene Glycol (miraLAX PACKET) 17 gm DAILY PO Last administered on 09:00; Start 07/09/16 at 09:00 Sennosides (Senna) 8.6 mg DAILY PO Last administered on 07/10/16 14:45; Start 07/09/16 at 09:00 Non-Formulary Medication 100 mcg WEEKLY SQ TO TREAT ANEMIA; Start 07/15/16 at 09 :00; Status UNV Diltiazem HCl (Cardizem 24hr Cd) 360 mg DAILY PO Last administered on 09:54; Start 07/09/16 at 09:00 Escitalopram Oxalate (Lexapro) 20 mg DAILY PO Last administered on 07/14/16 09 :11; Start 07/09/16 at 09:00 Vitamin B Complex/ Vitamin C (Zoe-Kiran) 1 tab DAILY PO Last administered on 09:08; Start 07/09/16 at 09:00 Gabapentin (Neurontin) 600 mg BID PO Last administered on 07/14/16 22:08; Start 07/08/16 at 21:00 Non-Formulary Medication 9 mg DAILY PO ; Start 07/09/16 at 09:00; Status UNV Insulin Aspart (Novolog) 10 units TIDAC SQ Last administered on 07/14/16 09:26 ; Start 07/08/16 at 16:30; Stop 07/14/16 at 11:48; Status DC Heparin Sodium (Porcine) (Heparin Sodium) 10,000 unit STK-MED ONCE .ROUTE ; Start 07/09/16 at 11:22; Stop 07/09/16 at 11:23; Status DC Lidocaine/Sodium Bicarbonate 20 ml 20 ml STK-MED ONCE IJ ; Start 07/09/16 at 11: 22; Stop 07/09/16 at 11:23; Status DC Heparin Sodium/ Sodium Chloride 500 ml @ As Directed STK-MED ONCE .ROUTE ; Start 07/09/16 at 11:22; Stop 07/09/16 at 11:23; Status DC Heparin Sodium/ Sodium Chloride 60 unit 1X ONCE IV Last administered on 12:21; Start 07/09/16 at 11:45; Stop 07/09/16 at 11:51; Status DC Heparin Sodium (Porcine) (Heparin Sodium) 2,500 unit 1X ONCE INT CAT Last administered on 07/09/16 12:21; Start 07/09/16 at 11:45; Stop 07/09/16 at 11:51 ; Status DC Lidocaine/Sodium Bicarbonate (Buffered Lidocaine 1%) 3 ml 1X ONCE IJ Last administered on 07/09/16 12:20; Start 07/09/16 at 11:45; Stop 07/09/16 at 11:51 ; Status DC Methylprednisolone Acetate (Depo-Medrol 40mg Vial) 40 mg 1X ONCE IM ; Start at 14:45; Stop 07/09/16 at 14:59; Status DC Bupivacaine HCl 10 ml 10 ml 1X ONCE IJ ; Start 07/09/16 at 14:45; Stop at 14:59; Status DC Sodium Chloride 1,000 ml @ 1,000 mls/hr Q1H PRN IV hypotension; Start 07/09/16 at 15:15; Stop 07/09/16 at 21:14; Status DC Albumin Human (Albuminar) 200 ml @ 200 mls/hr 1X PRN PRN IV Hypotension; Start 07/09/16 at 15:15; Stop 07/09/16 at 21:14; Status DC Acetaminophen (Tylenol) 500 mg 1X PRN PRN PO MILD PAIN / TEMP; Start 07/09/16 at 15:15; Stop 07/10/16 at 15:14; Status DC Diphenhydramine HCl (Benadryl) 25 mg 1X PRN PRN IV ITCHING; Start 07/09/16 at 15:15; Stop 07/10/16 at 15:14; Status DC Diphenhydramine HCl (Benadryl) 25 mg 1X PRN PRN IV ITCHING; Start 07/09/16 at 15:15; Stop 07/10/16 at 15:14; Status DC Labetalol HCl (Normodyne) 10 mg PRN Q1HR PRN IVP SBP > 180; Start 07/09/16 at 15:15; Stop 07/10/16 at 15:14; Status DC Clonidine HCl (Catapres) 0.1 mg 1X PRN PRN PO SBP > 180; Start 07/09/16 at 15: 15; Stop 07/10/16 at 15:14; Status DC Info (PHARMACY MONITORING -- do not chart) 1 each PRN DAILY PRN MC SEE COMMENTS ; Start 07/09/16 at 15:15; Status Cancel Vancomycin HCl 1 each 1 each 1X ONCE MC ; Start 07/11/16 at 06:00; Stop at 06:01; Status DC Sodium Chloride (Iv Sodium Chloride 0.9% 1000ml Bag) 1,000 ml @ 1,000 mls/hr Q1H PRN IV hypotension; Start 07/10/16 at 10:45; Stop 07/10/16 at 16:44; Status DC Sodium Chloride (Normal Saline Flush) 10 ml 1X PRN PRN IV AP catheter pack; Start 07/10/16 at 10:45; Stop 07/11/16 at 10:44; Status DC Sodium Chloride (Normal Saline Flush) 10 ml 1X PRN PRN IV BOOKSEAMER BLINDSTITCH catheter pack; Start 07/10/16 at 10:45; Stop 07/11/16 at 10:44; Status DC Info (PHARMACY MONITORING -- do not chart) 1 each PRN DAILY PRN MC SEE COMMENTS ; Start 07/10/16 at 10:45; Stop 07/10/16 at 14:25; Status DC Info 1 each 1 each PRN DAILY PRN MC SEE COMMENTS; Start 07/10/16 at 10:45; Status Cancel Lactated Ringer's 1,000 ml @ 50 mls/hr Q20H IV ; Start 07/13/16 at 07:00; Stop 07/13/16 at 18:59; Status Cancel Vancomycin HCl 500 mg/Sodium Chloride 100 ml @ 100 mls/hr 1X ONCE IV Last administered on 07/11/16t 18:00; Start 07/11/16 at 18:00; Stop 07/11/16 at 18:59 ; Status DC Sodium Chloride 1,000 ml @ 1,000 mls/hr Q1H PRN IV hypotension; Start 07/13/16 at 08:26; Stop 07/13/16 at 14:25; Status DC Albumin Human (Albuminar) 200 ml @ 200 mls/hr 1X PRN PRN IV Hypotension; Start 07/13/16 at 08:30; Stop 07/13/16 at 14:29; Status DC Midodrine (Proamatine) 5 mg 1X ONCE PO ; Start 07/13/16 at 08:30; Stop at 08:35; Status DC Acetaminophen (Tylenol) 500 mg 1X PRN PRN PO MILD PAIN / TEMP; Start 07/13/16 at 08:30; Stop 07/14/16 at 08:29; Status DC Diphenhydramine HCl (Benadryl) 25 mg 1X PRN PRN IV ITCHING; Start 07/13/16 at 08:30; Stop 07/14/16 at 08:29; Status DC Diphenhydramine HCl (Benadryl) 25 mg 1X PRN PRN IV ITCHING; Start 07/13/16 at 08:30; Stop 07/14/16 at 08:29; Status DC Labetalol HCl (Normodyne) 10 mg PRN Q1HR PRN IVP SBP > 180; Start 07/13/16 at 08:30; Stop 07/14/16 at 08:29; Status DC Clonidine HCl 0.1 mg 0.1 mg 1X PRN PRN PO SBP > 180; Start 07/13/16 at 08:30; Stop 07/14/16 at 08:29; Status DC Sodium Chloride (Iv Sodium Chloride 0.9% 1000ml Bag) 1,000 ml @ 400 mls/hr Q2H30M PRN IV PATENCY; Start 07/13/16 at 08:26; Stop 07/13/16 at 20:25; Status DC Info 1 each 1 each PRN DAILY PRN MC SEE COMMENTS; Start 07/13/16 at 08:30 Sodium Chloride 1,000 ml @ 0 mls/hr Q0M IV Last administered on 07/13/16 12: 39; Start 07/13/16 at 12:15 Propofol (Diprivan) 40 ml @ As Directed STK-MED ONCE IV ; Start 07/13/16 at 12: 27; Stop 07/13/16 at 12:28; Status DC Lidocaine HCl (Xylocaine-Mpf 1% Vial) 5 ml STK-MED ONCE .ROUTE ; Start 07/13/16 at 12:27; Stop 07/13/16 at 12:28; Status DC Lidocaine HCl (Viscous Lidocaine) 15 ml STK-MED ONCE .ROUTE ; Start 07/13/16 at 12:28; Stop 07/13/16 at 12:29; Status DC Benzocaine (Hurricaine One) 1 spray STK-MED ONCE .ROUTE ; Start 07/13/16 at 12: 28; Stop 07/13/16 at 12:29; Status DC Lidocaine HCl 30 stephan 30 stephan STK-MED ONCE TP ; Start 07/13/16 at 12:28; Stop at 12:29; Status DC Vancomycin HCl 500 mg/Sodium Chloride 100 ml @ 100 mls/hr 1X ONCE IV Last administered on 07/13/16 16:00; Start 07/13/16 at 16:00; Stop 07/13/16 at 16:59 ; Status DC Albumin Human (Albuminar) 100 ml @ 100 mls/hr TID IV Last administered on 07/15 08:08; Start 07/14/16 at 10:00; Stop 07/15/16 at 21:59 Calcium Acetate (Phoslo) 1,334 mg TIDWMEALS PO Last administered on 07/14/16 17:08; Start 07/14/16 at 12:00 Insulin Aspart (Novolog) 18 units TIDAC SQ Last administered on 07/15/16 08:12 ; Start 07/14/16 at 12:10; Stop 07/15/16 at 10:16; Status DC Insulin Detemir (Levemir) 20 units DAILY10 SQ Last administered on 07/14/16 12 :22; Start 07/14/16 at 12:00; Stop 07/15/16 at 10:15; Status DC Loperamide HCl (Imodium) 2 mg PRN Q4HRS PRN PO DIARRHEA Last administered on 17:08; Start 07/14/16 at 16:30 Vancomycin HCl 1 each 1X ONCE MC Last administered on 07/15/16 06:00; Start 07/15/16 at 06:00; Stop 07/15/16 at 06:01; Status DC Fentanyl Citrate (Fentanyl 2ml Vial) 25 mcg PRN Q5MIN PRN IV MILD PAIN; Start 07/15/16 at 07:00; Stop 07/16/16 at 06:59 Fentanyl Citrate (Fentanyl 2ml Vial) 50 mcg PRN Q5MIN PRN IV MODERATE PAIN; Start 07/15/16 at 07:00; Stop 07/16/16 at 06:59 Morphine Sulfate 1 mg PRN Q10MIN PRN IV SEVERE PAIN; Start 07/15/16 at 07:00; Stop 07/16/16 at 06:59 Lidocaine HCl 2 ml PRN 1X PRN ID PRIOR TO IV START; Start 07/15/16 at 07:00; Stop 07/16/16 at 06:59 Hydromorphone HCl (Dilaudid) 0.5 mg PRN Q10MIN PRN IV SEV PAIN, Second choice; Start 07/15/16 at 07:00; Stop 07/16/16 at 06:59 Prochlorperazine Edisylate 5 mg 5 mg PACU PRN PRN IV NAUSEA, MRX1; Start at 07:00; Stop 07/16/16 at 06:59 Sodium Chloride 1,000 ml @ 0 mls/hr Q0M IV ; Start 07/15/16 at 13:00 Vancomycin HCl/ Sodium Chloride (Iv Sodium Chloride 0.9% 100ml) 100 ml @ 100 mls/hr QMWF IV ; Start 07/15/16 at 16:00 Lidocaine HCl 20 ml STK-MED ONCE .ROUTE ; Start 07/15/16 at 07:14; Stop at 07:15; Status DC Cellulose 1 each STK-MED ONCE .ROUTE ; Start 07/15/16 at 07:16; Stop 07/15/16 at 07:17; Status DC Papaverine HCl 60 mg 60 mg STK-MED ONCE .ROUTE ; Start 07/15/16 at 07:16; Stop 07/15/16 at 07:17; Status DC Heparin Sodium (Porcine) 5000 unit/Sodium Chloride 505 ml @ 505 mls/hr 1X PERIOP ONCE IRR ; Start 07/15/16 at 09:00; Stop 07/15/16 at 09:59; Status DC Cefazolin Sodium/ Sodium Chloride (Ancef/Iv Sodium Chloride 0.9% 500ml Bag) 500 ml @ 500 mls/hr 1X PERIOP ONCE IRR ; Start 07/15/16 at 09:00; Stop 07/15/16 at 09:59; Status DC Insulin Detemir (Levemir) 40 units DAILY10 SQ ; Start 07/16/16 at 10:00 Insulin Aspart (Novolog) 26 units TIDAC SQ ; Start 07/15/16 at 11:30 Active Scripts Active Reported Amiodarone Hcl 200 Mg Tablet 200 Mg PO BID Aspir 81 (Aspirin) 81 Mg Tablet.dr 81 Mg PO DAILY Atorvastatin Calcium 20 Mg Tablet 20 Mg PO HS Cardizem Cd (Diltiazem Hcl) 360 Mg Cap.er.24h 360 Mg PO DAILY Docusate Sodium 100 Mg Capsule 100 Mg PO BID Melatonin 3 Mg Tablet 9 Mg PO DAILY Polyethylene Glycol 3350 17 Gm Powd.pack 17 Gm PO DAILY Senna (Sennosides) 8.6 Mg Tablet 8.6 Mg PO DAILY Clonidine Hcl 0.2 Mg Tablet 0.2 Mg PO DAILY Micro-Guard (Miconazole Nitrate) 85 Gm Powder 85 Gm TP BID Humalog (Insulin Lispro) 100 Unit/1 Ml Vial 100 Unit SQ Buspirone Hcl 5 Mg Tablet 5 Mg PO TID Aranesp Vial (Darbepoetin Naif In Polysorbat) 100 Mcg/1 Ml Vial 100 Mcg SQ WEEKLY Nephron Fa Tablet (Fe Fumarate/Dinorah/Fa/Bcomp&C) 1 Each Tablet 1 Each PO DAILY Ferrous Sulfate 325 Mg Tablet 1 Tab PO DAILY Escitalopram Oxalate 20 Mg Tablet 20 Mg PO DAILY Duoneb 0.5-3(2.5) Mg/3 Ml (Albuterol/Ipratropium) 3 Ml Ampul.neb 3 Ml NEB QID PRN Gabapentin 600 Mg Tablet 600 Mg PO BID Mirtazapine 7.5 Mg Tablet 7.5 Mg PO DAILY Abilify (Aripiprazole) 2 Mg Tablet 2.5 Mg PO DAILY Labetalol Hcl 5 Mg/1 Ml Vial 10 Mg IV PRN Heparin Sod 5,000 Unit/ 0.5 Ml (Heparin Sodium,Porcine/Pf) 5,000 Unit/0.5 Ml Vial 5,000 Unit IJ TID Novolin N (Nph, Human Insulin Isophane) 100 Unit/1 Ml Vial 100 Unit SQ PRN Vitals/I & O Vital Sign - Last 24 Hours 07/14/16 07/14/16 07/14/16 07/14/16 11:00 15:00 19:30 20:00 Temp 97.6 96.5 96.9 97.6 96.5 96.9 Pulse 74 60 59 Resp 18 16 20 B/P 138/60 114/45 138/62 Pulse Ox 95 96 95 O2 Delivery Room Air Room Air Room Air Nasal Cannula O2 Flow Rate 2.0 07/14/16 07/14/16 07/15/16 07/15/16 22:08 23:41 03:55 08:00 Temp 97.5 97.7 97.5 97.7 Pulse 59 62 56 Resp 20 20 B/P 138/62 133/55 142/61 Pulse Ox 95 92 O2 Delivery Nasal Cannula Nasal Cannula O2 Flow Rate 2.0 2.0 07/15/16 07/15/16 07/15/16 09:52 09:52 09:54 Pulse 80 88 80 B/P 155/77 155/80 155/80 Intake and Output 07/14/16 07/14/16 07/15/16 15:00 23:00 07:00 Intake Total 460 ml 900 ml Balance 460 ml 900 ml Nutrition Consultation Dietary Evaluation: Recommendations by RD: Increase Calorie Intake, Protein supplementation Comments: Resume diet and Novasource renal - 475kcal and 21.6g protein/ serving Expected Outcomes/Goals: to meet >75% est nutr needs Malnutrition Findings: Food and Nutrition Intake (Mod: <75% est energy req 7days Weight Status: Morbidly Obese Fluid Accumulation (Non-Severe: Mild depletion TOMASZ ARTEAGA MD Jul 15, 2016 10:40
[2016-07-15] MEDS ORDERED: ALTEPLASE IV ONE (11:30)
[2016-07-15] MEDS ORDERED: NORMAL SALINE IV ONE (11:30)
[2016-07-15] MEDS ORDERED: IV NORMAL SALINE 1000ML BAG 1,000 ML IV SCH (13:00)
[2016-07-15 15:01] VITALS: BP 142/53
[2016-07-15] MEDS: VANCOMYCIN 500 MG in IV NORMAL SALINE 100ML 100 ML IV SCH (16:14)
[2016-07-15] MEDS: NYSTATIN TOPICAL POWDER 15GM BOTTLE. TP SCH ×2 (16:18→21:15)
[2016-07-15 19:00] VITALS: BP 151/77
[2016-07-15] MEDS: ATORVASTATIN CALCIUM 20 MG TABLET PO SCH (21:14)
[2016-07-15 22:37] VITALS: BP 153/50
[2016-07-16] VITALS (12 sets, daily range): BP systolic 134–150; BP diastolic 38–72
[2016-07-16 05:05] LABS: BASO % 0 % (0-3); EOS % 2 % (0-3); HEMATOCRIT 28.8 % (36.0-47.0); HEMOGLOBIN 9.1 g/dL (12.0-15.5); LYMPH # 0.6 x10^3/uL (1.0-4.8); LYMPH % 7 % (24-48); MEAN CORPUSCULAR HEMOGLOBIN 27 pg (25-35); MEAN CORPUSCULAR HGB CONC 32 g/dL (31-37); MEAN CORPUSCULAR VOLUME 85 fL (79-100); MONO % 5 % (0-9); NEUT % 87 % (31-73); PLATELET COUNT 199 x10^3/uL (140-400); RED BLOOD COUNT 3.41 x10^6/uL (3.50-5.40); RED CELL DISTRIBUTION WIDTH 15.9 % (11.5-14.5); WHITE BLOOD COUNT 9.2 x10^3/uL (4.0-11.0)
[2016-07-16 05:41] LABS: ALBUMIN 3.1 g/dL (3.4-5.0); ALBUMIN/GLOBULIN RATIO 0.8 (1.0-1.7); CALCIUM 7.9 mg/dL (8.5-10.1); CREATININE 4.1 mg/dL (0.6-1.0); GFR 11.1; POTASSIUM 3.8 mmol/L (3.5-5.1); TOTAL BILIRUBIN 0.8 mg/dL (0.2-1.0); TOTAL PROTEIN 7.2 g/dL (6.4-8.2)
[2016-07-16] MEDS ORDERED: HEPARIN SODIUM 5,000 UNIT in IV NORMAL SALINE 500ML BAG 500 ML IRR ONE (06:00)
[2016-07-16] MEDS ORDERED: fentaNYL PF VIAL 100 MCG/2 ML VIAL IV PRN ×2 (07:00)
[2016-07-16] MEDS ORDERED: MORPHINE SULFATE 2 MG/ML DISP.SYRIN. IV PRN (07:00)
[2016-07-16] MEDS ORDERED: PROCHLORPERAZINE 10 MG/2 ML VIAL. IV PRN (07:00)
[2016-07-16] MEDS ORDERED: HYDROmorphone 2 MG/ML VIAL IV PRN (07:00)
[2016-07-16] MEDS ORDERED: LIDOCAINE 1% 1 ML SYRINGE. ID PRN (07:00)
[2016-07-16] MEDS ORDERED: IV RINGERS,LACTATED 1000ML 1,000 ML IV SCH (07:00)
[2016-07-16] MEDS: INSULIN ASPART 300 UNITS/3 ML INSULN.PEN SQ SCH ×4 (07:30→19:23)
[2016-07-16] MEDS: CALCIUM ACETATE 667 MG CAPSULE PO SCH ×3 (08:00→18:38)
[2016-07-16] MEDS: MIRTAZAPINE 7.5 MG TABLET. PO SCH (08:55)
[2016-07-16] MEDS: ESCITALOPRAM 10 MG TABLET. PO SCH (08:55)
[2016-07-16] MEDS: busPIRone 5 MG TABLET. PO SCH ×3 (08:57→22:03)
[2016-07-16] MEDS: cloNIDine HCL 0.2 MG TABLET PO SCH (08:57)
[2016-07-16] MEDS: ARIPiprazole 2 MG TABLET PO SCH (08:57)
[2016-07-16] MEDS: NYSTATIN TOPICAL POWDER 15GM BOTTLE. TP SCH ×2 (08:58→22:04)
[2016-07-16] MEDS: GABAPENTIN 300 MG CAPSULE. PO SCH ×2 (08:58→22:02)
[2016-07-16] MEDS: AMIODARONE HCL 200 MG TABLET. PO SCH ×2 (09:00→22:03)
[2016-07-16] MEDS: POLYETHYLENE GLYCOL 3350 17 GM PACKET. PO SCH (09:00)
[2016-07-16] MEDS: ASPIRIN ENTERIC COATED 81 MG TABLET.DR. PO SCH (09:00)
[2016-07-16] MEDS: HEPARIN PF for SUB-Q USE 5,000 UNIT/0.5 ML VIAL. SQ SCH ×3 (09:00→21:00)
[2016-07-16] MEDS: DOCUSATE SODIUM 100 MG CAPSULE. PO SCH ×2 (09:00→21:00)
[2016-07-16] MEDS: SENNOSIDES 8.6 MG TABLET PO SCH (09:00)
--- NOTE | 2016-07-16 09:22 | PDOC ---
SUBJECTIVE ROS ESRD doign and feeling better today CVS: no Orthopnea, no CP RESP: no SOB, no MEDEIROS GI: no Nausea, no Vomiting : no Dysuria, no Urgency OBJECTIVE Vital Signs Vital Signs Date Time Temp Pulse Resp B/P Pulse Ox O2 Delivery O2 Flow Rate FiO2 07/16/16 09:00 72 142/55 07/16/16 07:00 98.1 19 92 Nasal Cannula 2.0 98.1 I & 0 Intake and Output 07/16/16 07:00 Intake Total 1400 ml Output Total 0 ml Balance 1400 ml Intake Oral 1200 ml IV Total 200 ml Output Urine Total 0 ml # Voids 2 # Bowel Movements 1 PHYSICAL EXAM Physical Exam GEN: Awake, Oriented x 3, In no distress - Morbidly obese EYES: Vision Unchanged, Conjunctiva Normal EN: No EN Drainage, Mucous Membranes moist NECK: no JVD, no JVP, Supple, no Thyromegaly CVS: S1S2, ? Murmur, No Gallop, No Rub,tr Edema RESP: no Rales, no Rhonchi,no Acc. Muscle Use GI: BS + ve, NO Bruit, Non Tender, Non Distended - Obese : no CVA tenderness, no Suprapubic Tenderness DIAGNOSIS/ASSESSMENT Assessment & Plan ESRD: Current fluid and E-lyte status does not necessitate emergent need for dialysis. Will re-evaluate for dialysis in the am and continue on MWF schedule. ANEMIA; Aranesp as ordered, Transfuse with next HD as needed HTN: Current BP meds as reviewed. See orders for changes. ^Phos - Added Jamey Based binders hypoAlbuminemia - ? due to Infection - better with IV ALb Cath infection - will consult Vasc Surgery for P/Cath and AV Access creation Low Na - better now HD Access placement being co-ordinated with IR and Vasc Surgery Discussed Plan of Care with pt COMMENT/RELEVANT DATA Meds Current Medications Medications (Trade) Dose Ordered Sig/Gi Start Time Stop Time Status Last Admin Dose Admin Acetaminophen (Tylenol) 500 mg 1X PRN PRN 07/13/16 08:30 07/14/16 08:29 DC Acetaminophen 650 mg 650 mg PRN Q4HRS PRN 07/06/16 14:30 07/07/16 14:29 DC 07/07/16 05:17 650 MG Acetaminophen/ Hydrocodone Bitart (Lortab 5/325) 1 tab PRN Q4HRS PRN 07/08/16 09:30 07/13/16 22:42 1 TAB Albumin Human (Albuminar) 100 ml @ 100 mls/hr TID 07/14/16 10:00 07/15/16 21:59 DC 07/15/16 21:51 100 MLS/HR Albuterol/ Ipratropium (Duoneb) 3 ml PRN QID PRN 07/08/16 14:45 Alteplase, Recombinant/ Sodium Chloride (Activase/Iv Sodium Chloride 0.9% 250ml) 100 ml @ 10 mls/hr 1X ONCE 07/15/16 11:30 07/15/16 21:29 DC 07/15/16 11:35 10 MLS/HR Amiodarone HCl (Cordarone) 200 mg BID 07/08/16 21:00 07/16/16 09:00 200 MG Aripiprazole (Abilify) 2.5 mg DAILY 07/09/16 09:00 07/16/16 08:57 2.5 MG Aspirin (Ecotrin) 81 mg DAILY 07/08/16 15:00 07/14/16 09:10 81 MG Atorvastatin Calcium (Lipitor) 20 mg HS 07/08/16 21:00 07/15/16 21:14 20 MG Benzocaine (Hurricaine One) 1 spray STK-MED ONCE 07/13/16 12:28 07/13/16 12:29 DC Bupivacaine HCl (Sensorcaine-Mpf 0.25%) 10 ml 1X ONCE 07/09/16 14:45 07/09/16 14:59 DC Buspirone HCl (Buspar) 5 mg TID 07/08/16 15:00 07/16/16 08:57 5 MG Calcium Acetate (Phoslo) 1,334 mg TIDWMEALS 07/14/16 12:00 07/15/16 17:16 1,334 MG Cefazolin Sodium 1 gm/Sodium Chloride 500 ml @ 500 mls/hr 1X PERIOP ONCE 07/16/16 06:00 07/16/16 06:59 DC Cefazolin Sodium/ Sodium Chloride (Ancef/Iv Sodium Chloride 0.9% 500ml Bag) 500 ml @ 500 mls/hr 1X PERIOP ONCE 07/15/16 09:00 07/15/16 09:59 DC Cellulose 1 each STK-MED ONCE 07/15/16 07:16 07/15/16 07:17 DC Clonidine HCl (Catapres) 0.1 mg 1X PRN PRN 07/09/16 15:15 07/10/16 15:14 DC Clonidine HCl 0.1 mg 0.1 mg 1X PRN PRN 07/13/16 08:30 07/14/16 08:29 DC Darbepoetin Naif (Aranesp) 60 mcg WEEKLYHS 07/06/16 21:00 07/13/16 22:41 60 MCG Diltiazem HCl (Cardizem 24hr Cd) 360 mg DAILY 07/09/16 09:00 07/16/16 08:56 360 MG Diphenhydramine HCl (Benadryl) 25 mg 1X PRN PRN 07/13/16 08:30 07/14/16 08:29 DC Docusate Sodium (Colace) 100 mg BID 07/08/16 21:00 07/13/16 22:41 100 MG Escitalopram Oxalate (Lexapro) 20 mg DAILY 07/09/16 09:00 07/16/16 08:55 20 MG Fentanyl Citrate (Fentanyl 2ml Vial) 50 mcg PRN Q5MIN PRN 07/16/16 07:00 07/17/16 06:59 Ferrous Sulfate (Feosol) 325 mg DAILY 07/09/16 09:00 07/14/16 09:12 325 MG Gabapentin (Neurontin) 600 mg BID 07/08/16 21:00 07/16/16 08:58 600 MG Heparin Sodium (Porcine) (Heparin Sodium) 2,500 unit 1X ONCE 07/09/16 11:45 07/09/16 11:51 DC 07/09/16 12:21 2,500 UNIT Heparin Sodium (Porcine) 5000 unit/Sodium Chloride 505 ml @ 505 mls/hr 1X PERIOP ONCE 07/15/16 09:00 07/15/16 09:59 DC Heparin Sodium (Porcine)/Sodium Chloride (Heparin Sodium/ Iv Sodium Chloride 0.9% 500ml Bag) 505 ml @ 505 mls/hr 1X PERIOP ONCE 07/16/16 06:00 07/16/16 06:59 DC Heparin Sodium/ Sodium Chloride 60 unit 1X ONCE 07/09/16 11:45 07/09/16 11:51 DC 07/09/16 12:21 60 UNIT Hydromorphone HCl (Dilaudid) 0.5 mg PRN Q10MIN PRN 07/16/16 07:00 07/17/16 06:59 Hydromorphone HCl 0.5 mg 0.5 mg PRN Q10MIN PRN 07/15/16 07:00 07/16/16 06:59 DC Info (PHARMACY MONITORING -- do not chart) 1 each PRN DAILY PRN 07/10/16 10:45 Cancel Info 1 each 1 each PRN DAILY PRN 07/13/16 08:30 Insulin Aspart (Novolog) 18 units TIDAC 07/14/16 12:10 07/15/16 10:16 DC 07/15/16 08:12 9 UNITS Insulin Aspart 26 units 26 units TIDAC 07/15/16 11:30 07/15/16 17:23 26 UNITS Insulin Detemir (Levemir) 40 units DAILY10 07/16/16 10:00 Labetalol HCl (Normodyne) 10 mg PRN Q1HR PRN 07/13/16 08:30 07/14/16 08:29 DC Lactated Ringer's (Iv Lactated Ringers) 1,000 ml @ 0 mls/hr Q0M 07/16/16 07:00 07/16/16 18:59 Levofloxacin/ Dextrose (LEVAQUIN 500mg PREMIX) 100 ml @ 100 mls/hr Q48H 07/06/16 15:00 07/08/16 09:55 DC 07/06/16 17:36 100 MLS/HR Levofloxacin/ Dextrose 1 each 1 each PRN DAILY PRN 07/06/16 14:00 07/08/16 09:55 DC Lidocaine HCl 2 ml PRN 1X PRN 07/16/16 07:00 07/17/16 06:59 Lidocaine HCl (Viscous Lidocaine) 15 ml STK-MED ONCE 07/13/16 12:28 07/13/16 12:29 DC Lidocaine HCl (Xylocaine-Mpf 1% Vial) 5 ml STK-MED ONCE 07/13/16 12:27 07/13/16 12:28 DC Lidocaine HCl 30 stephan 30 stephan STK-MED ONCE 07/13/16 12:28 07/13/16 12:29 DC Lidocaine/Sodium Bicarbonate (Buffered Lidocaine 1%) 3 ml 1X ONCE 07/09/16 11:45 07/09/16 11:51 DC 07/09/16 12:20 3 ML Loperamide HCl (Imodium) 2 mg PRN Q4HRS PRN 07/14/16 16:30 07/14/16 17:08 2 MG Methylprednisolone Acetate (Depo-Medrol 40mg Vial) 40 mg 1X ONCE 07/09/16 14:45 07/09/16 14:59 DC Midodrine (Proamatine) 5 mg 1X ONCE 07/13/16 08:30 07/13/16 08:35 DC Mirtazapine (Remeron) 7.5 mg DAILY 07/09/16 09:00 07/16/16 08:55 7.5 MG Morphine Sulfate 1 mg 1 mg PRN Q10MIN PRN 07/16/16 07:00 07/17/16 06:59 Non-Formulary Medication 9 mg DAILY 07/09/16 09:00 UNV Nystatin (Nystop) 1 stephan BID 07/08/16 21:00 Cancel Ondansetron HCl (Zofran) 4 mg PRN Q8HRS PRN 07/06/16 14:30 07/07/16 14:29 DC Oxycodone HCl (Roxicodone) 5 mg PRN Q4HRS PRN 07/07/16 18:00 07/07/16 18:38 DC Papaverine HCl 60 mg 60 mg STK-MED ONCE 07/15/16 07:16 07/15/16 07:17 DC Piperacillin Sod/ Tazobactam Sod (Zosyn Per Pharmacy) 1 each PRN DAILY PRN 07/06/16 14:00 07/08/16 09:55 DC Piperacillin Sod/ Tazobactam Sod 2.25 gm/Sodium Chloride 50 ml @ 100 mls/hr Q8HRS 07/06/16 15:00 07/08/16 09:55 DC 07/08/16 05:17 100 MLS/HR Polyethylene Glycol (miraLAX PACKET) 17 gm DAILY 07/09/16 09:00 07/11/16 09:00 17 GM Prochlorperazine Edisylate 5 mg 5 mg PACU PRN PRN 07/16/16 07:00 07/17/16 06:59 Propofol (Diprivan) 40 ml @ As Directed STK-MED ONCE 07/13/16 12:27 07/13/16 12:28 DC Sennosides (Senna) 8.6 mg DAILY 07/09/16 09:00 07/10/16 14:45 8.6 MG Sodium Chloride 1,000 ml @ 0 mls/hr Q0M 07/15/16 13:00 Sodium Chloride (Iv Sodium Chloride 0.9% 500ml Bag) 500 ml @ 1,000 mls/hr 1X ONCE 07/06/16 12:45 07/06/16 13:14 DC 07/06/16 13:33 1,000 MLS/HR Sodium Chloride (Iv Sodium Chloride 0.9% 1000ml Bag) 1,000 ml @ 400 mls/hr Q2H30M PRN 07/13/16 08:26 07/13/16 20:25 DC Sodium Chloride (Normal Saline Flush) 10 ml 1X PRN PRN 07/10/16 10:45 07/11/16 10:44 DC Sodium Chloride 10 ml 10 ml 1X PRN PRN 07/06/16 23:30 07/07/16 23:29 DC Tramadol HCl (Ultram) 50 mg PRN Q6HRS PRN 07/07/16 18:45 07/13/16 22:43 50 MG Vancomycin HCl 1 each 1X ONCE 07/15/16 06:00 07/15/16 06:01 DC 07/15/16 06:00 1 EACH Vancomycin HCl (Vanco Per Pharmacy) 1 each PRN DAILY PRN 07/06/16 14:00 07/15/16 13:02 1 EACH Vancomycin HCl 500 mg/Sodium Chloride 100 ml @ 100 mls/hr 1X ONCE 07/13/16 16:00 07/13/16 16:59 DC 07/13/16 16:00 100 MLS/HR Vancomycin HCl/ Sodium Chloride (Iv Sodium Chloride 0.9% 100ml) 100 ml @ 100 mls/hr QMWF 07/15/16 16:00 07/15/16 16:14 100 MLS/HR Vancomycin HCl/ Sodium Chloride (Iv Sodium Chloride 0.9% 250ml) 250 ml @ 250 mls/hr 1X ONCE 07/07/16 06:30 07/07/16 07:29 DC 07/07/16 06:36 250 MLS/HR Vancomycin HCl/ Sodium Chloride (Iv Sodium Chloride 0.9% 500ml Bag) 500 ml @ 250 mls/hr 1X ONCE 07/06/16 14:15 07/06/16 16:14 DC 07/06/16 15:03 250 MLS/HR Vitamin B Complex/ Vitamin C (Zoe-Kiran) 1 tab DAILY 07/09/16 09:00 07/14/16 09:08 1 TAB Lab Laboratory Tests Test 07/15/16 10:57 07/15/16 17:06 07/15/16 20:54 07/16/16 04:20 Glucose (Fingerstick) 204mg/dL (70-99) 342mg/dL (70-99) 252mg/dL (70-99) White Blood Count 9.2x10^3/uL (4.0-11.0) Red Blood Count 3.41x10^6/uL (3.50-5.40) Hemoglobin 9.1g/dL (12.0-15.5) Hematocrit 28.8% (36.0-47.0) Mean Corpuscular Volume 85fL (79-100) Mean Corpuscular Hemoglobin 27pg (25-35) Mean Corpuscular Hemoglobin Concent 32g/dL (31-37) Red Cell Distribution Width 15.9% (11.5-14.5) Platelet Count 199x10^3/uL (140-400) Neutrophils (%) (Auto) 87% (31-73) Lymphocytes (%) (Auto) 7% (24-48) Monocytes (%) (Auto) 5% (0-9) Eosinophils (%) (Auto) 2% (0-3) Basophils (%) (Auto) 0% (0-3) Neutrophils # (Auto) 8.0x10^3uL (1.8-7.7) Lymphocytes # (Auto) 0.6x10^3/uL (1.0-4.8) Monocytes # (Auto) 0.5x10^3/uL (0.0-1.1) Eosinophils # (Auto) 0.1x10^3/uL (0.0-0.7) Basophils # (Auto) 0.0x10^3/uL (0.0-0.2) Sodium Level 138mmol/L (136-145) Potassium Level 3.8mmol/L (3.5-5.1) Chloride Level 99mmol/L (98-107) Carbon Dioxide Level 30mmol/L (21-32) Anion Gap 9 (6-14) Blood Urea Nitrogen 39mg/dL (7-20) Creatinine 4.1mg/dL (0.6-1.0) Estimated GFR (Cockcroft-Gault) 11.1 BUN/Creatinine Ratio 10 (6-20) Glucose Level 193mg/dL (70-99) Calcium Level 7.9mg/dL (8.5-10.1) Total Bilirubin 0.8mg/dL (0.2-1.0) Aspartate Amino Transf (AST/SGOT) 28U/L (15-37) Alanine Aminotransferase (ALT/SGPT) 29U/L (14-59) Alkaline Phosphatase 178U/L (46-116) Total Protein 7.2g/dL (6.4-8.2) Albumin 3.1g/dL (3.4-5.0) Albumin/Globulin Ratio 0.8 (1.0-1.7) Test 07/16/16 07:44 Glucose (Fingerstick) 191mg/dL (70-99) MESHA SIEGEL MD Jul 16, 2016 09:22
--- NOTE | 2016-07-16 09:29 | PDOC ---
PROGRESS NOTES Subjective Subjective She had no new complaints. Objective Objective Vital Signs Date Time Temp Pulse Resp B/P Pulse Ox O2 Delivery O2 Flow Rate FiO2 07/16/16 09:00 72 142/55 07/16/16 07:00 98.1 19 92 Nasal Cannula 2.0 98.1 Intake and Output 07/16/16 06:59 Intake Total 1400 ml Output Total 0 ml Balance 1400 ml Intake Oral 1200 ml IV Total 200 ml Output Urine Total 0 ml # Voids 2 # Bowel Movements 1 Physical Exam Physical Exam She is supine in bed and did not participate with therapy yesterday. Assessment Assessment Problems Medical Problems: (1) Anemia Status: Acute (2) End stage renal disease Status: Acute (3) Generalized weakness Status: Acute (4) Healthcare-associated pneumonia Status: Acute (5) Sepsis Status: Acute (6) Transient hypotension Status: Acute (7) Urinary tract infection Status: Acute Plan Plan of Care To encourage her to work with therapy. Comment Review of Relevant I have reviewed the following items dominga (where applicable) has been applied. Labs Laboratory Tests Test 07/14/16 11:37 07/14/16 16:21 07/14/16 21:00 07/14/16 22:28 Glucose (Fingerstick) 348mg/dL (70-99) 328mg/dL (70-99) 402mg/dL (70-99) 349mg/dL (70-99) Test 07/15/16 05:20 07/15/16 07:55 07/15/16 10:57 07/15/16 17:06 Random Vancomycin Level 16.1mcg/mL Glucose (Fingerstick) 333mg/dL (70-99) 204mg/dL (70-99) 342mg/dL (70-99) Test 07/15/16 20:54 07/16/16 04:20 07/16/16 07:44 Glucose (Fingerstick) 252mg/dL (70-99) 191mg/dL (70-99) White Blood Count 9.2x10^3/uL (4.0-11.0) Red Blood Count 3.41x10^6/uL (3.50-5.40) Hemoglobin 9.1g/dL (12.0-15.5) Hematocrit 28.8% (36.0-47.0) Mean Corpuscular Volume 85fL (79-100) Mean Corpuscular Hemoglobin 27pg (25-35) Mean Corpuscular Hemoglobin Concent 32g/dL (31-37) Red Cell Distribution Width 15.9% (11.5-14.5) Platelet Count 199x10^3/uL (140-400) Neutrophils (%) (Auto) 87% (31-73) Lymphocytes (%) (Auto) 7% (24-48) Monocytes (%) (Auto) 5% (0-9) Eosinophils (%) (Auto) 2% (0-3) Basophils (%) (Auto) 0% (0-3) Neutrophils # (Auto) 8.0x10^3uL (1.8-7.7) Lymphocytes # (Auto) 0.6x10^3/uL (1.0-4.8) Monocytes # (Auto) 0.5x10^3/uL (0.0-1.1) Eosinophils # (Auto) 0.1x10^3/uL (0.0-0.7) Basophils # (Auto) 0.0x10^3/uL (0.0-0.2) Sodium Level 138mmol/L (136-145) Potassium Level 3.8mmol/L (3.5-5.1) Chloride Level 99mmol/L (98-107) Carbon Dioxide Level 30mmol/L (21-32) Anion Gap 9 (6-14) Blood Urea Nitrogen 39mg/dL (7-20) Creatinine 4.1mg/dL (0.6-1.0) Estimated GFR (Cockcroft-Gault) 11.1 BUN/Creatinine Ratio 10 (6-20) Glucose Level 193mg/dL (70-99) Calcium Level 7.9mg/dL (8.5-10.1) Total Bilirubin 0.8mg/dL (0.2-1.0) Aspartate Amino Transf (AST/SGOT) 28U/L (15-37) Alanine Aminotransferase (ALT/SGPT) 29U/L (14-59) Alkaline Phosphatase 178U/L (46-116) Total Protein 7.2g/dL (6.4-8.2) Albumin 3.1g/dL (3.4-5.0) Albumin/Globulin Ratio 0.8 (1.0-1.7) Laboratory Tests Test 07/15/16 10:57 07/15/16 17:06 07/15/16 20:54 07/16/16 04:20 Glucose (Fingerstick) 204mg/dL (70-99) 342mg/dL (70-99) 252mg/dL (70-99) White Blood Count 9.2x10^3/uL (4.0-11.0) Red Blood Count 3.41x10^6/uL (3.50-5.40) Hemoglobin 9.1g/dL (12.0-15.5) Hematocrit 28.8% (36.0-47.0) Mean Corpuscular Volume 85fL (79-100) Mean Corpuscular Hemoglobin 27pg (25-35) Mean Corpuscular Hemoglobin Concent 32g/dL (31-37) Red Cell Distribution Width 15.9% (11.5-14.5) Platelet Count 199x10^3/uL (140-400) Neutrophils (%) (Auto) 87% (31-73) Lymphocytes (%) (Auto) 7% (24-48) Monocytes (%) (Auto) 5% (0-9) Eosinophils (%) (Auto) 2% (0-3) Basophils (%) (Auto) 0% (0-3) Neutrophils # (Auto) 8.0x10^3uL (1.8-7.7) Lymphocytes # (Auto) 0.6x10^3/uL (1.0-4.8) Monocytes # (Auto) 0.5x10^3/uL (0.0-1.1) Eosinophils # (Auto) 0.1x10^3/uL (0.0-0.7) Basophils # (Auto) 0.0x10^3/uL (0.0-0.2) Sodium Level 138mmol/L (136-145) Potassium Level 3.8mmol/L (3.5-5.1) Chloride Level 99mmol/L (98-107) Carbon Dioxide Level 30mmol/L (21-32) Anion Gap 9 (6-14) Blood Urea Nitrogen 39mg/dL (7-20) Creatinine 4.1mg/dL (0.6-1.0) Estimated GFR (Cockcroft-Gault) 11.1 BUN/Creatinine Ratio 10 (6-20) Glucose Level 193mg/dL (70-99) Calcium Level 7.9mg/dL (8.5-10.1) Total Bilirubin 0.8mg/dL (0.2-1.0) Aspartate Amino Transf (AST/SGOT) 28U/L (15-37) Alanine Aminotransferase (ALT/SGPT) 29U/L (14-59) Alkaline Phosphatase 178U/L (46-116) Total Protein 7.2g/dL (6.4-8.2) Albumin 3.1g/dL (3.4-5.0) Albumin/Globulin Ratio 0.8 (1.0-1.7) Test 07/16/16 07:44 Glucose (Fingerstick) 191mg/dL (70-99) Microbiology 07/11/16 Blood Culture - Preliminary, Resulted NO GROWTH AFTER 4 DAYS 07/08/16 Fecal Leukocyte Stain - Final, Complete 07/06/16 Urine Culture - Final, Complete 07/06/16 Urine Culture Result 1 (NEGRITO) - Final, Complete 07/06/16 Gram Stain - Final, Complete Medications Current Medications Sodium Chloride (Iv Sodium Chloride 0.9% 500ml Bag) 500 ml @ 1,000 mls/hr 1X ONCE IV Last administered on 07/06/16 13:33; Start 07/06/16 at 12:45; Stop 01/12 at 13:14; Status DC Ondansetron HCl (Zofran) 4 mg 1X ONCE IV Last administered on 07/06/16 13:33 ; Start 07/06/16 at 12:45; Stop 07/06/16 at 12:46; Status DC Vancomycin HCl (Vanco Per Pharmacy) 1 each PRN DAILY PRN MC SEE COMMENTS Last administered on 07/15/16 13:02; Start 07/06/16 at 14:00 Piperacillin Sod/ Tazobactam Sod (Zosyn Per Pharmacy) 1 each PRN DAILY PRN MC SEE COMMENTS; Start 07/06/16 at 14:00; Stop 07/08/16 at 09:55; Status DC Levofloxacin/ Dextrose 1 each 1 each PRN DAILY PRN MC SEE COMMENTS; Start 07/06 at 14:00; Stop 07/08/16 at 09:55; Status DC Vancomycin HCl/ Sodium Chloride (Iv Sodium Chloride 0.9% 500ml Bag) 500 ml @ 250 mls/hr 1X ONCE IV Last administered on 07/06/16 15:03; Start 07/06/16 at 14:15; Stop 07/06/16 at 16:14; Status DC Ondansetron HCl (Zofran) 4 mg PRN Q8HRS PRN IV NAUSEA/VOMITING; Start 07/06/16 at 14:30; Stop 07/07/16 at 14:29; Status DC Morphine Sulfate 2 mg PRN Q2HR PRN IV PAIN; Start 07/06/16 at 14:30; Stop 07/07 at 14:29; Status DC Acetaminophen 650 mg 650 mg PRN Q4HRS PRN PO FEVER Last administered on 05:17; Start 07/06/16 at 14:30; Stop 07/07/16 at 14:29; Status DC Piperacillin Sod/ Tazobactam Sod 2.25 gm/Sodium Chloride 50 ml @ 100 mls/hr Q8HRS IV Last administered on 07/08/16 05:17; Start 07/06/16 at 15:00; Stop at 09:55; Status DC Levofloxacin/ Dextrose (LEVAQUIN 500mg PREMIX) 100 ml @ 100 mls/hr Q48H IV Last administered on 07/06/16 17:36; Start 07/06/16 at 15:00; Stop 07/08/16 at 09:55; Status DC Darbepoetin Naif 60 mcg 60 mcg WEEKLYHS SQ Last administered on 07/13/16 22:41 ; Start 07/06/16 at 21:00; Stop 07/16/16 at 09:19; Status DC Sodium Chloride (Iv Sodium Chloride 0.9% 1000ml Bag) 1,000 ml @ 1,000 mls/hr Q1H PRN IV hypotension; Start 07/06/16 at 23:29; Stop 07/07/16 at 05:28; Status DC Sodium Chloride (Normal Saline Flush) 10 ml 1X PRN PRN IV AP catheter pack; Start 07/06/16 at 23:30; Stop 07/07/16 at 23:29; Status DC Sodium Chloride (Normal Saline Flush) 10 ml 1X PRN PRN IV BEER COOLER catheter pack; Start 07/06/16 at 23:30; Stop 07/07/16 at 23:29; Status DC Info (PHARMACY MONITORING -- do not chart) 1 each PRN DAILY PRN MC SEE COMMENTS ; Start 07/06/16 at 23:30; Stop 07/09/16 at 21:17; Status DC Info 1 each 1 each PRN DAILY PRN MC SEE COMMENTS; Start 07/06/16 at 23:30; Stop 07/07/16 at 13:09; Status DC Vancomycin HCl/ Sodium Chloride (Iv Sodium Chloride 0.9% 250ml) 250 ml @ 250 mls/hr 1X ONCE IV Last administered on 07/07/16 06:36; Start 07/07/16 at 06: 30; Stop 07/07/16 at 07:29; Status DC Nystatin (Nystop) 1 stephan BID TP Last administered on 07/16/16 08:58; Start 02/12 at 14:00 Oxycodone HCl (Roxicodone) 5 mg PRN Q4HRS PRN PO PAIN; Start 07/07/16 at 18:00 ; Stop 07/07/16 at 18:38; Status DC Acetaminophen (Tylenol) 650 mg PRN Q6HRS PRN PO MILD PAIN / TEMP Last administered on 07/08/16 04:45; Start 07/07/16 at 18:45 Tramadol HCl (Ultram) 50 mg PRN Q6HRS PRN PO MODERATE PAIN Last administered on 07/13/16 22:43; Start 07/07/16 at 18:45 Acetaminophen/ Hydrocodone Bitart (Lortab 5/325) 1 tab PRN Q4HRS PRN PO SEVERE PAIN Last administered on 07/13/16 22:42; Start 07/08/16 at 09:30 Vancomycin HCl 1 each 1X ONCE MC Last administered on 07/09/16 05:31; Start 07/09/16 at 05:00; Stop 07/09/16 at 05:01; Status DC Amiodarone HCl (Cordarone) 200 mg BID PO Last administered on 07/16/16 09:00; Start 07/08/16 at 21:00 Aripiprazole (Abilify) 2.5 mg DAILY PO Last administered on 07/16/16 08:57; Start 07/09/16 at 09:00 Aspirin (Ecotrin) 81 mg DAILY PO Last administered on 07/14/16 09:10; Start at 15:00 Atorvastatin Calcium (Lipitor) 20 mg HS PO Last administered on 07/15/16 21:14 ; Start 07/08/16 at 21:00 Buspirone HCl (Buspar) 5 mg TID PO Last administered on 07/16/16 08:57; Start 07/08/16 at 15:00 Clonidine HCl (Catapres) 0.2 mg DAILY PO Last administered on 07/16/16 08:57; Start 07/09/16 at 09:00 Docusate Sodium (Colace) 100 mg BID PO Last administered on 07/13/16 22:41; Start 07/08/16 at 21:00 Ferrous Sulfate (Feosol) 325 mg DAILY PO Last administered on 07/14/16 09:12; Start 07/09/16 at 09:00 Heparin Sodium (Porcine) 5,000 unit TID SQ Last administered on 07/15/16 17:22 ; Start 07/08/16 at 15:00 Albuterol/ Ipratropium (Duoneb) 3 ml PRN QID PRN NEB SHORTNESS OF BREATH; Start 07/08/16 at 14:45 Labetalol HCl (Normodyne) 10 mg PRN BID PRN IVP HYPERTENSION, SEE COMMENTS; Start 07/08/16 at 15:15 Nystatin (Nystop) 1 stephan BID TP ; Start 07/08/16 at 21:00; Status Cancel Mirtazapine (Remeron) 7.5 mg DAILY PO Last administered on 07/16/16 08:55; Start 07/09/16 at 09:00 Polyethylene Glycol (miraLAX PACKET) 17 gm DAILY PO Last administered on 09:00; Start 07/09/16 at 09:00 Sennosides (Senna) 8.6 mg DAILY PO Last administered on 07/10/16 14:45; Start 07/09/16 at 09:00 Non-Formulary Medication 100 mcg WEEKLY SQ TO TREAT ANEMIA; Start 07/15/16 at 09 :00; Status UNV Diltiazem HCl (Cardizem 24hr Cd) 360 mg DAILY PO Last administered on 08:56; Start 07/09/16 at 09:00 Escitalopram Oxalate (Lexapro) 20 mg DAILY PO Last administered on 07/16/16 08 :55; Start 07/09/16 at 09:00 Vitamin B Complex/ Vitamin C (Zoe-Kiran) 1 tab DAILY PO Last administered on 09:08; Start 07/09/16 at 09:00 Gabapentin (Neurontin) 600 mg BID PO Last administered on 07/16/16 08:58; Start 07/08/16 at 21:00 Non-Formulary Medication 9 mg DAILY PO ; Start 07/09/16 at 09:00; Status UNV Insulin Aspart (Novolog) 10 units TIDAC SQ Last administered on 07/14/16 09:26 ; Start 07/08/16 at 16:30; Stop 07/14/16 at 11:48; Status DC Heparin Sodium (Porcine) (Heparin Sodium) 10,000 unit STK-MED ONCE .ROUTE ; Start 07/09/16 at 11:22; Stop 07/09/16 at 11:23; Status DC Lidocaine/Sodium Bicarbonate 20 ml 20 ml STK-MED ONCE IJ ; Start 07/09/16 at 11: 22; Stop 07/09/16 at 11:23; Status DC Heparin Sodium/ Sodium Chloride 500 ml @ As Directed STK-MED ONCE .ROUTE ; Start 07/09/16 at 11:22; Stop 07/09/16 at 11:23; Status DC Heparin Sodium/ Sodium Chloride 60 unit 1X ONCE IV Last administered on 12:21; Start 07/09/16 at 11:45; Stop 07/09/16 at 11:51; Status DC Heparin Sodium (Porcine) (Heparin Sodium) 2,500 unit 1X ONCE INT CAT Last administered on 07/09/16 12:21; Start 07/09/16 at 11:45; Stop 07/09/16 at 11:51 ; Status DC Lidocaine/Sodium Bicarbonate (Buffered Lidocaine 1%) 3 ml 1X ONCE IJ Last administered on 07/09/16 12:20; Start 07/09/16 at 11:45; Stop 07/09/16 at 11:51 ; Status DC Methylprednisolone Acetate (Depo-Medrol 40mg Vial) 40 mg 1X ONCE IM ; Start at 14:45; Stop 07/09/16 at 14:59; Status DC Bupivacaine HCl 10 ml 10 ml 1X ONCE IJ ; Start 07/09/16 at 14:45; Stop at 14:59; Status DC Sodium Chloride 1,000 ml @ 1,000 mls/hr Q1H PRN IV hypotension; Start 07/09/16 at 15:15; Stop 07/09/16 at 21:14; Status DC Albumin Human (Albuminar) 200 ml @ 200 mls/hr 1X PRN PRN IV Hypotension; Start 07/09/16 at 15:15; Stop 07/09/16 at 21:14; Status DC Acetaminophen (Tylenol) 500 mg 1X PRN PRN PO MILD PAIN / TEMP; Start 07/09/16 at 15:15; Stop 07/10/16 at 15:14; Status DC Diphenhydramine HCl (Benadryl) 25 mg 1X PRN PRN IV ITCHING; Start 07/09/16 at 15:15; Stop 07/10/16 at 15:14; Status DC Diphenhydramine HCl (Benadryl) 25 mg 1X PRN PRN IV ITCHING; Start 07/09/16 at 15:15; Stop 07/10/16 at 15:14; Status DC Labetalol HCl (Normodyne) 10 mg PRN Q1HR PRN IVP SBP > 180; Start 07/09/16 at 15:15; Stop 07/10/16 at 15:14; Status DC Clonidine HCl (Catapres) 0.1 mg 1X PRN PRN PO SBP > 180; Start 07/09/16 at 15: 15; Stop 07/10/16 at 15:14; Status DC Info (PHARMACY MONITORING -- do not chart) 1 each PRN DAILY PRN MC SEE COMMENTS ; Start 07/09/16 at 15:15; Status Cancel Vancomycin HCl 1 each 1 each 1X ONCE MC ; Start 07/11/16 at 06:00; Stop at 06:01; Status DC Sodium Chloride (Iv Sodium Chloride 0.9% 1000ml Bag) 1,000 ml @ 1,000 mls/hr Q1H PRN IV hypotension; Start 07/10/16 at 10:45; Stop 07/10/16 at 16:44; Status DC Sodium Chloride (Normal Saline Flush) 10 ml 1X PRN PRN IV AP catheter pack; Start 07/10/16 at 10:45; Stop 07/11/16 at 10:44; Status DC Sodium Chloride (Normal Saline Flush) 10 ml 1X PRN PRN IV BEER COOLER catheter pack; Start 07/10/16 at 10:45; Stop 07/11/16 at 10:44; Status DC Info (PHARMACY MONITORING -- do not chart) 1 each PRN DAILY PRN MC SEE COMMENTS ; Start 07/10/16 at 10:45; Stop 07/10/16 at 14:25; Status DC Info 1 each 1 each PRN DAILY PRN MC SEE COMMENTS; Start 07/10/16 at 10:45; Status Cancel Lactated Ringer's 1,000 ml @ 50 mls/hr Q20H IV ; Start 07/13/16 at 07:00; Stop 07/13/16 at 18:59; Status Cancel Vancomycin HCl 500 mg/Sodium Chloride 100 ml @ 100 mls/hr 1X ONCE IV Last administered on 07/11/16t 18:00; Start 07/11/16 at 18:00; Stop 07/11/16 at 18:59 ; Status DC Sodium Chloride 1,000 ml @ 1,000 mls/hr Q1H PRN IV hypotension; Start 07/13/16 at 08:26; Stop 07/13/16 at 14:25; Status DC Albumin Human (Albuminar) 200 ml @ 200 mls/hr 1X PRN PRN IV Hypotension; Start 07/13/16 at 08:30; Stop 07/13/16 at 14:29; Status DC Midodrine (Proamatine) 5 mg 1X ONCE PO ; Start 07/13/16 at 08:30; Stop at 08:35; Status DC Acetaminophen (Tylenol) 500 mg 1X PRN PRN PO MILD PAIN / TEMP; Start 07/13/16 at 08:30; Stop 07/14/16 at 08:29; Status DC Diphenhydramine HCl (Benadryl) 25 mg 1X PRN PRN IV ITCHING; Start 07/13/16 at 08:30; Stop 07/14/16 at 08:29; Status DC Diphenhydramine HCl (Benadryl) 25 mg 1X PRN PRN IV ITCHING; Start 07/13/16 at 08:30; Stop 07/14/16 at 08:29; Status DC Labetalol HCl (Normodyne) 10 mg PRN Q1HR PRN IVP SBP > 180; Start 07/13/16 at 08:30; Stop 07/14/16 at 08:29; Status DC Clonidine HCl 0.1 mg 0.1 mg 1X PRN PRN PO SBP > 180; Start 07/13/16 at 08:30; Stop 07/14/16 at 08:29; Status DC Sodium Chloride (Iv Sodium Chloride 0.9% 1000ml Bag) 1,000 ml @ 400 mls/hr Q2H30M PRN IV PATENCY; Start 07/13/16 at 08:26; Stop 07/13/16 at 20:25; Status DC Info 1 each 1 each PRN DAILY PRN MC SEE COMMENTS; Start 07/13/16 at 08:30 Sodium Chloride 1,000 ml @ 0 mls/hr Q0M IV Last administered on 07/13/16t 12: 39; Start 07/13/16 at 12:15 Propofol (Diprivan) 40 ml @ As Directed STK-MED ONCE IV ; Start 07/13/16 at 12: 27; Stop 07/13/16 at 12:28; Status DC Lidocaine HCl (Xylocaine-Mpf 1% Vial) 5 ml STK-MED ONCE .ROUTE ; Start 07/13/16 at 12:27; Stop 07/13/16 at 12:28; Status DC Lidocaine HCl (Viscous Lidocaine) 15 ml STK-MED ONCE .ROUTE ; Start 07/13/16 at 12:28; Stop 07/13/16 at 12:29; Status DC Benzocaine (Hurricaine One) 1 spray STK-MED ONCE .ROUTE ; Start 07/13/16 at 12: 28; Stop 07/13/16 at 12:29; Status DC Lidocaine HCl 30 stephan 30 stephan STK-MED ONCE TP ; Start 07/13/16 at 12:28; Stop at 12:29; Status DC Vancomycin HCl 500 mg/Sodium Chloride 100 ml @ 100 mls/hr 1X ONCE IV Last administered on 07/13/16t 16:00; Start 07/13/16 at 16:00; Stop 07/13/16 at 16:59 ; Status DC Albumin Human (Albuminar) 100 ml @ 100 mls/hr TID IV Last administered on 07/15 21:51; Start 07/14/16 at 10:00; Stop 07/15/16 at 21:59; Status DC Calcium Acetate (Phoslo) 1,334 mg TIDWMEALS PO Last administered on 07/15/16 17:16; Start 07/14/16 at 12:00 Insulin Aspart (Novolog) 18 units TIDAC SQ Last administered on 07/15/16 08:12 ; Start 07/14/16 at 12:10; Stop 07/15/16 at 10:16; Status DC Insulin Detemir (Levemir) 20 units DAILY10 SQ Last administered on 07/14/16 12 :22; Start 07/14/16 at 12:00; Stop 07/15/16 at 10:15; Status DC Loperamide HCl (Imodium) 2 mg PRN Q4HRS PRN PO DIARRHEA Last administered on 17:08; Start 07/14/16 at 16:30 Vancomycin HCl 1 each 1X ONCE MC Last administered on 07/15/16 06:00; Start 07/15/16 at 06:00; Stop 07/15/16 at 06:01; Status DC Fentanyl Citrate (Fentanyl 2ml Vial) 25 mcg PRN Q5MIN PRN IV MILD PAIN; Start 07/15/16 at 07:00; Stop 07/16/16 at 06:59; Status DC Fentanyl Citrate (Fentanyl 2ml Vial) 50 mcg PRN Q5MIN PRN IV MODERATE PAIN; Start 07/15/16 at 07:00; Stop 07/16/16 at 06:59; Status DC Morphine Sulfate 1 mg PRN Q10MIN PRN IV SEVERE PAIN; Start 07/15/16 at 07:00; Stop 07/16/16 at 06:59; Status DC Lidocaine HCl 2 ml PRN 1X PRN ID PRIOR TO IV START; Start 07/15/16 at 07:00; Stop 07/16/16 at 06:59; Status DC Hydromorphone HCl (Dilaudid) 0.5 mg PRN Q10MIN PRN IV SEV PAIN, Second choice; Start 07/15/16 at 07:00; Stop 07/16/16 at 06:59; Status DC Prochlorperazine Edisylate 5 mg 5 mg PACU PRN PRN IV NAUSEA, MRX1; Start at 07:00; Stop 07/16/16 at 06:59; Status DC Sodium Chloride 1,000 ml @ 0 mls/hr Q0M IV ; Start 07/15/16 at 13:00 Vancomycin HCl/ Sodium Chloride (Iv Sodium Chloride 0.9% 100ml) 100 ml @ 100 mls/hr QMWF IV Last administered on 07/15/16 16:14; Start 07/15/16 at 16:00 Lidocaine HCl 20 ml STK-MED ONCE .ROUTE ; Start 07/15/16 at 07:14; Stop at 07:15; Status DC Cellulose 1 each STK-MED ONCE .ROUTE ; Start 07/15/16 at 07:16; Stop 07/15/16 at 07:17; Status DC Papaverine HCl 60 mg 60 mg STK-MED ONCE .ROUTE ; Start 07/15/16 at 07:16; Stop 07/15/16 at 07:17; Status DC Heparin Sodium (Porcine) 5000 unit/Sodium Chloride 505 ml @ 505 mls/hr 1X PERIOP ONCE IRR ; Start 07/15/16 at 09:00; Stop 07/15/16 at 09:59; Status DC Cefazolin Sodium/ Sodium Chloride (Ancef/Iv Sodium Chloride 0.9% 500ml Bag) 500 ml @ 500 mls/hr 1X PERIOP ONCE IRR ; Start 07/15/16 at 09:00; Stop 07/15/16 at 09:59; Status DC Insulin Detemir (Levemir) 40 units DAILY10 SQ ; Start 07/16/16 at 10:00 Insulin Aspart 26 units 26 units TIDAC SQ Last administered on 07/15/16 17:23 ; Start 07/15/16 at 11:30 Alteplase, Recombinant/ Sodium Chloride (Activase/Iv Sodium Chloride 0.9% 250ml ) 100 ml @ 10 mls/hr 1X ONCE IV Last administered on 07/15/16 11:35; Start 07/15/16 at 11:30; Stop 07/15/16 at 21:29; Status DC Fentanyl Citrate (Fentanyl 2ml Vial) 25 mcg PRN Q5MIN PRN IV MILD PAIN; Start 07/16/16 at 07:00; Stop 07/17/16 at 06:59 Fentanyl Citrate (Fentanyl 2ml Vial) 50 mcg PRN Q5MIN PRN IV MODERATE PAIN; Start 07/16/16 at 07:00; Stop 07/17/16 at 06:59 Morphine Sulfate 1 mg 1 mg PRN Q10MIN PRN IV SEVERE PAIN; Start 07/16/16 at 07: 00; Stop 07/17/16 at 06:59 Lactated Ringer's (Iv Lactated Ringers) 1,000 ml @ 0 mls/hr Q0M IV ; Start at 07:00; Stop 07/16/16 at 18:59 Lidocaine HCl 2 ml PRN 1X PRN ID PRIOR TO IV START; Start 07/16/16 at 07:00; Stop 07/17/16 at 06:59 Hydromorphone HCl (Dilaudid) 0.5 mg PRN Q10MIN PRN IV SEV PAIN, Second choice; Start 07/16/16 at 07:00; Stop 07/17/16 at 06:59 Prochlorperazine Edisylate 5 mg 5 mg PACU PRN PRN IV NAUSEA, MRX1; Start at 07:00; Stop 07/17/16 at 06:59 Cefazolin Sodium 1 gm/Sodium Chloride 500 ml @ 500 mls/hr 1X PERIOP ONCE IRR ; Start 07/16/16 at 06:00; Stop 07/16/16 at 06:59; Status DC Heparin Sodium (Porcine)/Sodium Chloride (Heparin Sodium/ Iv Sodium Chloride 0.9 % 500ml Bag) 505 ml @ 505 mls/hr 1X PERIOP ONCE IRR ; Start 07/16/16 at 06:00 ; Stop 07/16/16 at 06:59; Status DC Darbepoetin Naif (Aranesp) 100 mcg WEEKLYHS SQ ; Start 07/20/16 at 21:00 Active Scripts Active Reported Amiodarone Hcl 200 Mg Tablet 200 Mg PO BID Aspir 81 (Aspirin) 81 Mg Tablet.dr 81 Mg PO DAILY Atorvastatin Calcium 20 Mg Tablet 20 Mg PO HS Cardizem Cd (Diltiazem Hcl) 360 Mg Cap.er.24h 360 Mg PO DAILY Docusate Sodium 100 Mg Capsule 100 Mg PO BID Melatonin 3 Mg Tablet 9 Mg PO DAILY Polyethylene Glycol 3350 17 Gm Powd.pack 17 Gm PO DAILY Senna (Sennosides) 8.6 Mg Tablet 8.6 Mg PO DAILY Clonidine Hcl 0.2 Mg Tablet 0.2 Mg PO DAILY Micro-Guard (Miconazole Nitrate) 85 Gm Powder 85 Gm TP BID Humalog (Insulin Lispro) 100 Unit/1 Ml Vial 100 Unit SQ Buspirone Hcl 5 Mg Tablet 5 Mg PO TID Aranesp Vial (Darbepoetin Naif In Polysorbat) 100 Mcg/1 Ml Vial 100 Mcg SQ WEEKLY Nephron Fa Tablet (Fe Fumarate/Dinorah/Fa/Bcomp&C) 1 Each Tablet 1 Each PO DAILY Ferrous Sulfate 325 Mg Tablet 1 Tab PO DAILY Escitalopram Oxalate 20 Mg Tablet 20 Mg PO DAILY Duoneb 0.5-3(2.5) Mg/3 Ml (Albuterol/Ipratropium) 3 Ml Ampul.neb 3 Ml NEB QID PRN Gabapentin 600 Mg Tablet 600 Mg PO BID Mirtazapine 7.5 Mg Tablet 7.5 Mg PO DAILY Abilify (Aripiprazole) 2 Mg Tablet 2.5 Mg PO DAILY Labetalol Hcl 5 Mg/1 Ml Vial 10 Mg IV PRN Heparin Sod 5,000 Unit/ 0.5 Ml (Heparin Sodium,Porcine/Pf) 5,000 Unit/0.5 Ml Vial 5,000 Unit IJ TID Novolin N (Nph, Human Insulin Isophane) 100 Unit/1 Ml Vial 100 Unit SQ PRN Vitals/I & O Vital Sign - Last 24 Hours 07/15/16 07/15/16 07/15/16 07/15/16 09:52 09:52 09:54 15:01 Temp 96.9 96.9 Pulse 80 88 80 73 Resp 19 B/P 155/77 155/80 155/80 142/53 Pulse Ox 88 O2 Delivery Nasal Cannula O2 Flow Rate 2.0 07/15/16 07/15/16 07/15/16 07/16/16 19:00 21:16 22:37 02:57 Temp 95.7 96.9 96.1 95.7 96.9 96.1 Pulse 68 67 67 69 Resp 16 16 16 B/P 151/77 144/53 153/50 134/42 Pulse Ox 95 93 92 O2 Delivery Nasal Cannula Nasal Cannula Nasal Cannula O2 Flow Rate 2.0 2.0 2.0 4/2007/16/16 07/16/16 07/16/16 07:00 08:56 08:57 09:00 Temp 98.1 98.1 Pulse 72 72 72 72 Resp 19 B/P 142/55 142/55 142/55 142/55 Pulse Ox 92 O2 Delivery Nasal Cannula O2 Flow Rate 2.0 Intake and Output 07/15/16 07/15/16 07/16/16 14:59 22:59 06:59 Intake Total 100 ml 900 ml 400 ml Output Total 0 ml Balance 100 ml 900 ml 400 ml Nutrition Consultation Dietary Evaluation: Recommendations by RD: Increase Calorie Intake, Protein supplementation Comments: Resume diet and Novasource renal - 475kcal and 21.6g protein/ serving Expected Outcomes/Goals: to meet >75% est nutr needs Malnutrition Findings: Food and Nutrition Intake (Mod: <75% est energy req 7days Weight Status: Morbidly Obese Fluid Accumulation (Non-Severe: Mild depletion SHAZIA COLEMAN MD Jul 16, 2016 09:28
[2016-07-16] MEDS: INSULIN DETEMIR 300 UNITS/3 ML INSULN.PEN. SQ SCH (10:00)
--- NOTE | 2016-07-16 12:11 | PDOC ---
Infectious Disease Note Subjective Subjective Doing well ROS ROS GEN: Denies fevers, chills, sweats HEENT: Denies blurred vision, sore throat CV: Denies chest pain RESP: Denies shortness of air, cough GI: Denies n/v/d NEURO: Denies confusion, dizziness MSK: Denies weakness, joint pain/swelling Vital Sign Vital Signs Vital Signs Date Time Temp Pulse Resp B/P Pulse Ox O2 Delivery O2 Flow Rate FiO2 07/16/16 09:00 72 142/55 07/16/16 07:00 98.1 19 92 Nasal Cannula 2.0 98.1 Physical Exam PHYSICAL EXAM GENERAL: NAD, Alert. in bed HEENT: PERRL, OC/Op - clear NECK: Supple, no JVD, no LN LUNGS: Clear HEART: S1S2, no gallop, no murmur ABD: Soft, NT, no organomegaly, no rebound, obese EXT: Trace edema, no cyanosis/Boots SOCCER COMMENTATOR: Alert, oriented x 3, no focal neurologic deficit SKIN: No rash IV: Left - clean Labs Lab Laboratory Tests Test 07/15/16 17:06 07/15/16 20:54 07/16/16 04:20 07/16/16 07:44 Glucose (Fingerstick) 342mg/dL (70-99) 252mg/dL (70-99) 191mg/dL (70-99) White Blood Count 9.2x10^3/uL (4.0-11.0) Red Blood Count 3.41x10^6/uL (3.50-5.40) Hemoglobin 9.1g/dL (12.0-15.5) Hematocrit 28.8% (36.0-47.0) Mean Corpuscular Volume 85fL (79-100) Mean Corpuscular Hemoglobin 27pg (25-35) Mean Corpuscular Hemoglobin Concent 32g/dL (31-37) Red Cell Distribution Width 15.9% (11.5-14.5) Platelet Count 199x10^3/uL (140-400) Neutrophils (%) (Auto) 87% (31-73) Lymphocytes (%) (Auto) 7% (24-48) Monocytes (%) (Auto) 5% (0-9) Eosinophils (%) (Auto) 2% (0-3) Basophils (%) (Auto) 0% (0-3) Neutrophils # (Auto) 8.0x10^3uL (1.8-7.7) Lymphocytes # (Auto) 0.6x10^3/uL (1.0-4.8) Monocytes # (Auto) 0.5x10^3/uL (0.0-1.1) Eosinophils # (Auto) 0.1x10^3/uL (0.0-0.7) Basophils # (Auto) 0.0x10^3/uL (0.0-0.2) Sodium Level 138mmol/L (136-145) Potassium Level 3.8mmol/L (3.5-5.1) Chloride Level 99mmol/L (98-107) Carbon Dioxide Level 30mmol/L (21-32) Anion Gap 9 (6-14) Blood Urea Nitrogen 39mg/dL (7-20) Creatinine 4.1mg/dL (0.6-1.0) Estimated GFR (Cockcroft-Gault) 11.1 BUN/Creatinine Ratio 10 (6-20) Glucose Level 193mg/dL (70-99) Calcium Level 7.9mg/dL (8.5-10.1) Total Bilirubin 0.8mg/dL (0.2-1.0) Aspartate Amino Transf (AST/SGOT) 28U/L (15-37) Alanine Aminotransferase (ALT/SGPT) 29U/L (14-59) Alkaline Phosphatase 178U/L (46-116) Total Protein 7.2g/dL (6.4-8.2) Albumin 3.1g/dL (3.4-5.0) Albumin/Globulin Ratio 0.8 (1.0-1.7) Test 07/16/16 11:05 Glucose (Fingerstick) 207mg/dL (70-99) Objective Assessment MRSA Sepsis. POA - no peripheral stigmata. 07/11 neg so far. TO ? veg on HD cath -Positive BC 07/06, 07/08 Infected HDC catheter. MRSA -s/p placement temp [facility]J HDC 07/09 -s/p removal RIJ HDC 07/07 Encephalopathy ESRD Obesity Steroid injection, 07/09 Sublux talus Plan Plan of Care Cont vanc F/u repeat BC Await IR eval Ortho eval Reviewed with Dr Castillo 07/15 D/w family EDITH MAI MD Jul 16, 2016 12:11
[2016-07-16] MEDS: VANCOMYCIN PER PHARMACY MC PRN ×2 (12:25→12:26)
[2016-07-16] MEDS ORDERED: PROPOFOL 20 ML IV ONE (13:07)
[2016-07-16] MEDS ORDERED: FAMOTIDINE 20 MG/2 ML VIAL ONE (13:07)
[2016-07-16] MEDS ORDERED: ONDANSETRON PF 4 MG/2 ML VIAL. ONE (13:07)
[2016-07-16] MEDS ORDERED: LIDOCAINE 2% 100 MG/5 ML SYRINGE. ONE (13:08)
[2016-07-16] MEDS ORDERED: ROCURONIUM 50 MG/5 ML VIAL. ONE (13:08)
[2016-07-16] MEDS ORDERED: fentaNYL PF VIAL 100 MCG/2 ML VIAL ONE (13:08)
[2016-07-16] MEDS ORDERED: SURGICEL FIBRILLAR 1X2 EACH. ONE (14:05)
[2016-07-16] MEDS ORDERED: LIDOCAINE 1% 20 ML VIAL. ONE (14:06)
[2016-07-16] MEDS ORDERED: PROPOFOL 200 ML IV ONE (14:15)
[2016-07-16] MEDS ORDERED: MIDAZOLAM HCL/PF 2 MG/2 ML VIAL. ONE (14:16)
--- NOTE | 2016-07-16 14:16 | PDOC ---
Provider Note Provider Note Vascular Surgery Patient was resting in pre-op area. VSS Right arm - palpable right brachial and weakly palpable radial pulse Plan: - NPO - Right arm brachiocephalic fistula - The patient understands the risks and benefits, and agrees to proceed with creation of a fistula. WEI BOLTON MD Jul 16, 2016 14:15
[2016-07-16] MEDS ORDERED: KETAMINE HCL 500 MG/10 ML VIAL. ONE (14:17)
--- NOTE | 2016-07-16 14:40 | PDOC ---
PROGRESS NOTES Chief Complaint Chief Complaint cc: Diarrhea, MRSA sepsis ESRD on dialysis Encephalopathy Diabetes mellitus morbid obese, BMI 47, down almost 150lbs from max weight Hyperlipidemia Hypertension KRYSTLE Infected HDC catheter. MRSA -s/p placement temp [facility] HDC 07/09 -s/p removal [place] [facility] 07/07 Encephalopathy ESRD History of Present Illness History of Present Illness OOB to chair, use commode, wound consult to eval backside blood sugar up today, liberalize diet increase insulin dose, add levemir SSI labs reviewed, d/w and her brother, will need SNU, I discussed with social work and care coordination x3 Vitals Vitals Vital Signs Date Time Temp Pulse Resp B/P Pulse Ox O2 Delivery O2 Flow Rate FiO2 07/16/16 12:48 97.0 66 15 168/74 94 Room Air 97.0 07/16/16 11:00 2.0 Physical Exam General: Alert, Cooperative Heart: Regular rate, Normal S1, Normal S2 Lungs: Crackles, Other (No chest retractions were present) Abdomen: Soft, No tenderness Extremities: No clubbing, No cyanosis Skin: No rashes, No breakdown Labs LABS Laboratory Tests Test 07/15/16 17:06 07/15/16 20:54 07/16/16 04:20 07/16/16 07:44 Glucose (Fingerstick) 342mg/dL (70-99) 252mg/dL (70-99) 191mg/dL (70-99) White Blood Count 9.2x10^3/uL (4.0-11.0) Red Blood Count 3.41x10^6/uL (3.50-5.40) Hemoglobin 9.1g/dL (12.0-15.5) Hematocrit 28.8% (36.0-47.0) Mean Corpuscular Volume 85fL (79-100) Mean Corpuscular Hemoglobin 27pg (25-35) Mean Corpuscular Hemoglobin Concent 32g/dL (31-37) Red Cell Distribution Width 15.9% (11.5-14.5) Platelet Count 199x10^3/uL (140-400) Neutrophils (%) (Auto) 87% (31-73) Lymphocytes (%) (Auto) 7% (24-48) Monocytes (%) (Auto) 5% (0-9) Eosinophils (%) (Auto) 2% (0-3) Basophils (%) (Auto) 0% (0-3) Neutrophils # (Auto) 8.0x10^3uL (1.8-7.7) Lymphocytes # (Auto) 0.6x10^3/uL (1.0-4.8) Monocytes # (Auto) 0.5x10^3/uL (0.0-1.1) Eosinophils # (Auto) 0.1x10^3/uL (0.0-0.7) Basophils # (Auto) 0.0x10^3/uL (0.0-0.2) Sodium Level 138mmol/L (136-145) Potassium Level 3.8mmol/L (3.5-5.1) Chloride Level 99mmol/L (98-107) Carbon Dioxide Level 30mmol/L (21-32) Anion Gap 9 (6-14) Blood Urea Nitrogen 39mg/dL (7-20) Creatinine 4.1mg/dL (0.6-1.0) Estimated GFR (Cockcroft-Gault) 11.1 BUN/Creatinine Ratio 10 (6-20) Glucose Level 193mg/dL (70-99) Calcium Level 7.9mg/dL (8.5-10.1) Total Bilirubin 0.8mg/dL (0.2-1.0) Aspartate Amino Transf (AST/SGOT) 28U/L (15-37) Alanine Aminotransferase (ALT/SGPT) 29U/L (14-59) Alkaline Phosphatase 178U/L (46-116) Total Protein 7.2g/dL (6.4-8.2) Albumin 3.1g/dL (3.4-5.0) Albumin/Globulin Ratio 0.8 (1.0-1.7) Test 07/16/16 11:05 Glucose (Fingerstick) 207mg/dL (70-99) Review of Systems Review of Systems no new pain Assessment and Plan Assessmemt and Plan consult Ortho ankle xray showed subjux of talus, unsure of OK to proceed with weight bearing Problems Medical Problems: (1) Anemia Status: Acute (2) End stage renal disease Status: Acute (3) Generalized weakness Status: Acute (4) Healthcare-associated pneumonia Status: Acute (5) Sepsis Status: Acute (6) Transient hypotension Status: Acute (7) Urinary tract infection Status: Acute Problems: Comment Review of Relevant I have reviewed the following items dominga (where applicable) has been applied. Labs Laboratory Tests Test 07/14/16 16:21 07/14/16 21:00 07/14/16 22:28 07/15/16 05:20 Glucose (Fingerstick) 328mg/dL (70-99) 402mg/dL (70-99) 349mg/dL (70-99) Random Vancomycin Level 16.1mcg/mL Test 07/15/16 07:55 07/15/16 10:57 07/15/16 17:06 07/15/16 20:54 Glucose (Fingerstick) 333mg/dL (70-99) 204mg/dL (70-99) 342mg/dL (70-99) 252mg/dL (70-99) Test 07/16/16 04:20 07/16/16 07:44 07/16/16 11:05 White Blood Count 9.2x10^3/uL (4.0-11.0) Red Blood Count 3.41x10^6/uL (3.50-5.40) Hemoglobin 9.1g/dL (12.0-15.5) Hematocrit 28.8% (36.0-47.0) Mean Corpuscular Volume 85fL (79-100) Mean Corpuscular Hemoglobin 27pg (25-35) Mean Corpuscular Hemoglobin Concent 32g/dL (31-37) Red Cell Distribution Width 15.9% (11.5-14.5) Platelet Count 199x10^3/uL (140-400) Neutrophils (%) (Auto) 87% (31-73) Lymphocytes (%) (Auto) 7% (24-48) Monocytes (%) (Auto) 5% (0-9) Eosinophils (%) (Auto) 2% (0-3) Basophils (%) (Auto) 0% (0-3) Neutrophils # (Auto) 8.0x10^3uL (1.8-7.7) Lymphocytes # (Auto) 0.6x10^3/uL (1.0-4.8) Monocytes # (Auto) 0.5x10^3/uL (0.0-1.1) Eosinophils # (Auto) 0.1x10^3/uL (0.0-0.7) Basophils # (Auto) 0.0x10^3/uL (0.0-0.2) Sodium Level 138mmol/L (136-145) Potassium Level 3.8mmol/L (3.5-5.1) Chloride Level 99mmol/L (98-107) Carbon Dioxide Level 30mmol/L (21-32) Anion Gap 9 (6-14) Blood Urea Nitrogen 39mg/dL (7-20) Creatinine 4.1mg/dL (0.6-1.0) Estimated GFR (Cockcroft-Gault) 11.1 BUN/Creatinine Ratio 10 (6-20) Glucose Level 193mg/dL (70-99) Calcium Level 7.9mg/dL (8.5-10.1) Total Bilirubin 0.8mg/dL (0.2-1.0) Aspartate Amino Transf (AST/SGOT) 28U/L (15-37) Alanine Aminotransferase (ALT/SGPT) 29U/L (14-59) Alkaline Phosphatase 178U/L (46-116) Total Protein 7.2g/dL (6.4-8.2) Albumin 3.1g/dL (3.4-5.0) Albumin/Globulin Ratio 0.8 (1.0-1.7) Glucose (Fingerstick) 191mg/dL (70-99) 207mg/dL (70-99) Laboratory Tests Test 07/15/16 17:06 07/15/16 20:54 07/16/16 04:20 07/16/16 07:44 Glucose (Fingerstick) 342mg/dL (70-99) 252mg/dL (70-99) 191mg/dL (70-99) White Blood Count 9.2x10^3/uL (4.0-11.0) Red Blood Count 3.41x10^6/uL (3.50-5.40) Hemoglobin 9.1g/dL (12.0-15.5) Hematocrit 28.8% (36.0-47.0) Mean Corpuscular Volume 85fL (79-100) Mean Corpuscular Hemoglobin 27pg (25-35) Mean Corpuscular Hemoglobin Concent 32g/dL (31-37) Red Cell Distribution Width 15.9% (11.5-14.5) Platelet Count 199x10^3/uL (140-400) Neutrophils (%) (Auto) 87% (31-73) Lymphocytes (%) (Auto) 7% (24-48) Monocytes (%) (Auto) 5% (0-9) Eosinophils (%) (Auto) 2% (0-3) Basophils (%) (Auto) 0% (0-3) Neutrophils # (Auto) 8.0x10^3uL (1.8-7.7) Lymphocytes # (Auto) 0.6x10^3/uL (1.0-4.8) Monocytes # (Auto) 0.5x10^3/uL (0.0-1.1) Eosinophils # (Auto) 0.1x10^3/uL (0.0-0.7) Basophils # (Auto) 0.0x10^3/uL (0.0-0.2) Sodium Level 138mmol/L (136-145) Potassium Level 3.8mmol/L (3.5-5.1) Chloride Level 99mmol/L (98-107) Carbon Dioxide Level 30mmol/L (21-32) Anion Gap 9 (6-14) Blood Urea Nitrogen 39mg/dL (7-20) Creatinine 4.1mg/dL (0.6-1.0) Estimated GFR (Cockcroft-Gault) 11.1 BUN/Creatinine Ratio 10 (6-20) Glucose Level 193mg/dL (70-99) Calcium Level 7.9mg/dL (8.5-10.1) Total Bilirubin 0.8mg/dL (0.2-1.0) Aspartate Amino Transf (AST/SGOT) 28U/L (15-37) Alanine Aminotransferase (ALT/SGPT) 29U/L (14-59) Alkaline Phosphatase 178U/L (46-116) Total Protein 7.2g/dL (6.4-8.2) Albumin 3.1g/dL (3.4-5.0) Albumin/Globulin Ratio 0.8 (1.0-1.7) Test 07/16/16 11:05 Glucose (Fingerstick) 207mg/dL (70-99) Microbiology 07/11/16 Blood Culture - Final, Complete NO GROWTH AFTER 5 DAYS 07/08/16 Fecal Leukocyte Stain - Final, Complete 07/06/16 Urine Culture - Final, Complete 07/06/16 Urine Culture Result 1 (NEGRITO) - Final, Complete 07/06/16 Gram Stain - Final, Complete Medications Current Medications Sodium Chloride (Iv Sodium Chloride 0.9% 500ml Bag) 500 ml @ 1,000 mls/hr 1X ONCE IV Last administered on 07/06/16 13:33; Start 07/06/16 at 12:45; Stop 01/12 at 13:14; Status DC Ondansetron HCl (Zofran) 4 mg 1X ONCE IV Last administered on 07/06/16 13:33 ; Start 07/06/16 at 12:45; Stop 07/06/16 at 12:46; Status DC Vancomycin HCl (Vanco Per Pharmacy) 1 each PRN DAILY PRN MC SEE COMMENTS Last administered on 07/16/16 12:26; Start 07/06/16 at 14:00 Piperacillin Sod/ Tazobactam Sod (Zosyn Per Pharmacy) 1 each PRN DAILY PRN MC SEE COMMENTS; Start 07/06/16 at 14:00; Stop 07/08/16 at 09:55; Status DC Levofloxacin/ Dextrose 1 each 1 each PRN DAILY PRN MC SEE COMMENTS; Start 07/06 at 14:00; Stop 07/08/16 at 09:55; Status DC Vancomycin HCl/ Sodium Chloride (Iv Sodium Chloride 0.9% 500ml Bag) 500 ml @ 250 mls/hr 1X ONCE IV Last administered on 07/06/16 15:03; Start 07/06/16 at 14:15; Stop 07/06/16 at 16:14; Status DC Ondansetron HCl (Zofran) 4 mg PRN Q8HRS PRN IV NAUSEA/VOMITING; Start 07/06/16 at 14:30; Stop 07/07/16 at 14:29; Status DC Morphine Sulfate 2 mg PRN Q2HR PRN IV PAIN; Start 07/06/16 at 14:30; Stop 07/07 at 14:29; Status DC Acetaminophen 650 mg 650 mg PRN Q4HRS PRN PO FEVER Last administered on 05:17; Start 07/06/16 at 14:30; Stop 07/07/16 at 14:29; Status DC Piperacillin Sod/ Tazobactam Sod 2.25 gm/Sodium Chloride 50 ml @ 100 mls/hr Q8HRS IV Last administered on 07/08/16 05:17; Start 07/06/16 at 15:00; Stop at 09:55; Status DC Levofloxacin/ Dextrose (LEVAQUIN 500mg PREMIX) 100 ml @ 100 mls/hr Q48H IV Last administered on 07/06/16 17:36; Start 07/06/16 at 15:00; Stop 07/08/16 at 09:55; Status DC Darbepoetin Naif 60 mcg 60 mcg WEEKLYHS SQ Last administered on 07/13/16 22:41 ; Start 07/06/16 at 21:00; Stop 07/16/16 at 09:19; Status DC Sodium Chloride (Iv Sodium Chloride 0.9% 1000ml Bag) 1,000 ml @ 1,000 mls/hr Q1H PRN IV hypotension; Start 07/06/16 at 23:29; Stop 07/07/16 at 05:28; Status DC Sodium Chloride (Normal Saline Flush) 10 ml 1X PRN PRN IV AP catheter pack; Start 07/06/16 at 23:30; Stop 07/07/16 at 23:29; Status DC Sodium Chloride (Normal Saline Flush) 10 ml 1X PRN PRN IV TELECOM ANALYST catheter pack; Start 07/06/16 at 23:30; Stop 07/07/16 at 23:29; Status DC Info (PHARMACY MONITORING -- do not chart) 1 each PRN DAILY PRN MC SEE COMMENTS ; Start 07/06/16 at 23:30; Stop 07/09/16 at 21:17; Status DC Info 1 each 1 each PRN DAILY PRN MC SEE COMMENTS; Start 07/06/16 at 23:30; Stop 07/07/16 at 13:09; Status DC Vancomycin HCl/ Sodium Chloride (Iv Sodium Chloride 0.9% 250ml) 250 ml @ 250 mls/hr 1X ONCE IV Last administered on 07/07/16 06:36; Start 07/07/16 at 06: 30; Stop 07/07/16 at 07:29; Status DC Nystatin (Nystop) 1 stephan BID TP Last administered on 07/16/16 08:58; Start 02/12 at 14:00 Oxycodone HCl (Roxicodone) 5 mg PRN Q4HRS PRN PO PAIN; Start 07/07/16 at 18:00 ; Stop 07/07/16 at 18:38; Status DC Acetaminophen (Tylenol) 650 mg PRN Q6HRS PRN PO MILD PAIN / TEMP Last administered on 07/08/16 04:45; Start 07/07/16 at 18:45 Tramadol HCl (Ultram) 50 mg PRN Q6HRS PRN PO MODERATE PAIN Last administered on 07/13/16 22:43; Start 07/07/16 at 18:45 Acetaminophen/ Hydrocodone Bitart (Lortab 5/325) 1 tab PRN Q4HRS PRN PO SEVERE PAIN Last administered on 07/13/16 22:42; Start 07/08/16 at 09:30 Vancomycin HCl 1 each 1X ONCE MC Last administered on 07/09/16 05:31; Start 07/09/16 at 05:00; Stop 07/09/16 at 05:01; Status DC Amiodarone HCl (Cordarone) 200 mg BID PO Last administered on 07/16/16 09:00; Start 07/08/16 at 21:00 Aripiprazole (Abilify) 2.5 mg DAILY PO Last administered on 07/16/16 08:57; Start 07/09/16 at 09:00 Aspirin (Ecotrin) 81 mg DAILY PO Last administered on 07/14/16 09:10; Start at 15:00 Atorvastatin Calcium (Lipitor) 20 mg HS PO Last administered on 07/15/16 21:14 ; Start 07/08/16 at 21:00 Buspirone HCl (Buspar) 5 mg TID PO Last administered on 07/16/16 08:57; Start 07/08/16 at 15:00 Clonidine HCl (Catapres) 0.2 mg DAILY PO Last administered on 07/16/16 08:57; Start 07/09/16 at 09:00 Docusate Sodium (Colace) 100 mg BID PO Last administered on 07/13/16 22:41; Start 07/08/16 at 21:00 Ferrous Sulfate (Feosol) 325 mg DAILY PO Last administered on 07/14/16 09:12; Start 07/09/16 at 09:00 Heparin Sodium (Porcine) 5,000 unit TID SQ Last administered on 07/15/16 17:22 ; Start 07/08/16 at 15:00 Albuterol/ Ipratropium (Duoneb) 3 ml PRN QID PRN NEB SHORTNESS OF BREATH; Start 07/08/16 at 14:45 Labetalol HCl (Normodyne) 10 mg PRN BID PRN IVP HYPERTENSION, SEE COMMENTS; Start 07/08/16 at 15:15 Nystatin (Nystop) 1 stephan BID TP ; Start 07/08/16 at 21:00; Status Cancel Mirtazapine (Remeron) 7.5 mg DAILY PO Last administered on 07/16/16 08:55; Start 07/09/16 at 09:00 Polyethylene Glycol (miraLAX PACKET) 17 gm DAILY PO Last administered on 09:00; Start 07/09/16 at 09:00 Sennosides (Senna) 8.6 mg DAILY PO Last administered on 07/10/16 14:45; Start 07/09/16 at 09:00 Non-Formulary Medication 100 mcg WEEKLY SQ TO TREAT ANEMIA; Start 07/15/16 at 09 :00; Status UNV Diltiazem HCl (Cardizem 24hr Cd) 360 mg DAILY PO Last administered on 08:56; Start 07/09/16 at 09:00 Escitalopram Oxalate (Lexapro) 20 mg DAILY PO Last administered on 07/16/16 08 :55; Start 07/09/16 at 09:00 Vitamin B Complex/ Vitamin C (Zoe-Kiran) 1 tab DAILY PO Last administered on 09:08; Start 07/09/16 at 09:00 Gabapentin (Neurontin) 600 mg BID PO Last administered on 07/16/16 08:58; Start 07/08/16 at 21:00 Non-Formulary Medication 9 mg DAILY PO ; Start 07/09/16 at 09:00; Status UNV Insulin Aspart (Novolog) 10 units TIDAC SQ Last administered on 07/14/16 09:26 ; Start 07/08/16 at 16:30; Stop 07/14/16 at 11:48; Status DC Heparin Sodium (Porcine) (Heparin Sodium) 10,000 unit STK-MED ONCE .ROUTE ; Start 07/09/16 at 11:22; Stop 07/09/16 at 11:23; Status DC Lidocaine/Sodium Bicarbonate 20 ml 20 ml STK-MED ONCE IJ ; Start 07/09/16 at 11: 22; Stop 07/09/16 at 11:23; Status DC Heparin Sodium/ Sodium Chloride 500 ml @ As Directed STK-MED ONCE .ROUTE ; Start 07/09/16 at 11:22; Stop 07/09/16 at 11:23; Status DC Heparin Sodium/ Sodium Chloride 60 unit 1X ONCE IV Last administered on 12:21; Start 07/09/16 at 11:45; Stop 07/09/16 at 11:51; Status DC Heparin Sodium (Porcine) (Heparin Sodium) 2,500 unit 1X ONCE INT CAT Last administered on 07/09/16 12:21; Start 07/09/16 at 11:45; Stop 07/09/16 at 11:51 ; Status DC Lidocaine/Sodium Bicarbonate (Buffered Lidocaine 1%) 3 ml 1X ONCE IJ Last administered on 07/09/16 12:20; Start 07/09/16 at 11:45; Stop 07/09/16 at 11:51 ; Status DC Methylprednisolone Acetate (Depo-Medrol 40mg Vial) 40 mg 1X ONCE IM ; Start at 14:45; Stop 07/09/16 at 14:59; Status DC Bupivacaine HCl 10 ml 10 ml 1X ONCE IJ ; Start 07/09/16 at 14:45; Stop at 14:59; Status DC Sodium Chloride 1,000 ml @ 1,000 mls/hr Q1H PRN IV hypotension; Start 07/09/16 at 15:15; Stop 07/09/16 at 21:14; Status DC Albumin Human (Albuminar) 200 ml @ 200 mls/hr 1X PRN PRN IV Hypotension; Start 07/09/16 at 15:15; Stop 07/09/16 at 21:14; Status DC Acetaminophen (Tylenol) 500 mg 1X PRN PRN PO MILD PAIN / TEMP; Start 07/09/16 at 15:15; Stop 07/10/16 at 15:14; Status DC Diphenhydramine HCl (Benadryl) 25 mg 1X PRN PRN IV ITCHING; Start 07/09/16 at 15:15; Stop 07/10/16 at 15:14; Status DC Diphenhydramine HCl (Benadryl) 25 mg 1X PRN PRN IV ITCHING; Start 07/09/16 at 15:15; Stop 07/10/16 at 15:14; Status DC Labetalol HCl (Normodyne) 10 mg PRN Q1HR PRN IVP SBP > 180; Start 07/09/16 at 15:15; Stop 07/10/16 at 15:14; Status DC Clonidine HCl (Catapres) 0.1 mg 1X PRN PRN PO SBP > 180; Start 07/09/16 at 15: 15; Stop 07/10/16 at 15:14; Status DC Info (PHARMACY MONITORING -- do not chart) 1 each PRN DAILY PRN MC SEE COMMENTS ; Start 07/09/16 at 15:15; Status Cancel Vancomycin HCl 1 each 1 each 1X ONCE MC ; Start 07/11/16 at 06:00; Stop at 06:01; Status DC Sodium Chloride (Iv Sodium Chloride 0.9% 1000ml Bag) 1,000 ml @ 1,000 mls/hr Q1H PRN IV hypotension; Start 07/10/16 at 10:45; Stop 07/10/16 at 16:44; Status DC Sodium Chloride (Normal Saline Flush) 10 ml 1X PRN PRN IV AP catheter pack; Start 07/10/16 at 10:45; Stop 07/11/16 at 10:44; Status DC Sodium Chloride (Normal Saline Flush) 10 ml 1X PRN PRN IV TELECOM ANALYST catheter pack; Start 07/10/16 at 10:45; Stop 07/11/16 at 10:44; Status DC Info (PHARMACY MONITORING -- do not chart) 1 each PRN DAILY PRN MC SEE COMMENTS ; Start 07/10/16 at 10:45; Stop 07/10/16 at 14:25; Status DC Info 1 each 1 each PRN DAILY PRN MC SEE COMMENTS; Start 07/10/16 at 10:45; Status Cancel Lactated Ringer's 1,000 ml @ 50 mls/hr Q20H IV ; Start 07/13/16 at 07:00; Stop 07/13/16 at 18:59; Status Cancel Vancomycin HCl 500 mg/Sodium Chloride 100 ml @ 100 mls/hr 1X ONCE IV Last administered on 07/11/16t 18:00; Start 07/11/16 at 18:00; Stop 07/11/16 at 18:59 ; Status DC Sodium Chloride 1,000 ml @ 1,000 mls/hr Q1H PRN IV hypotension; Start 07/13/16 at 08:26; Stop 07/13/16 at 14:25; Status DC Albumin Human (Albuminar) 200 ml @ 200 mls/hr 1X PRN PRN IV Hypotension; Start 07/13/16 at 08:30; Stop 07/13/16 at 14:29; Status DC Midodrine (Proamatine) 5 mg 1X ONCE PO ; Start 07/13/16 at 08:30; Stop at 08:35; Status DC Acetaminophen (Tylenol) 500 mg 1X PRN PRN PO MILD PAIN / TEMP; Start 07/13/16 at 08:30; Stop 07/14/16 at 08:29; Status DC Diphenhydramine HCl (Benadryl) 25 mg 1X PRN PRN IV ITCHING; Start 07/13/16 at 08:30; Stop 07/14/16 at 08:29; Status DC Diphenhydramine HCl (Benadryl) 25 mg 1X PRN PRN IV ITCHING; Start 07/13/16 at 08:30; Stop 07/14/16 at 08:29; Status DC Labetalol HCl (Normodyne) 10 mg PRN Q1HR PRN IVP SBP > 180; Start 07/13/16 at 08:30; Stop 07/14/16 at 08:29; Status DC Clonidine HCl 0.1 mg 0.1 mg 1X PRN PRN PO SBP > 180; Start 07/13/16 at 08:30; Stop 07/14/16 at 08:29; Status DC Sodium Chloride (Iv Sodium Chloride 0.9% 1000ml Bag) 1,000 ml @ 400 mls/hr Q2H30M PRN IV PATENCY; Start 07/13/16 at 08:26; Stop 07/13/16 at 20:25; Status DC Info 1 each 1 each PRN DAILY PRN MC SEE COMMENTS; Start 07/13/16 at 08:30 Sodium Chloride 1,000 ml @ 0 mls/hr Q0M IV Last administered on 07/13/16 12: 39; Start 07/13/16 at 12:15 Propofol (Diprivan) 40 ml @ As Directed STK-MED ONCE IV ; Start 07/13/16 at 12: 27; Stop 07/13/16 at 12:28; Status DC Lidocaine HCl (Xylocaine-Mpf 1% Vial) 5 ml STK-MED ONCE .ROUTE ; Start 07/13/16 at 12:27; Stop 07/13/16 at 12:28; Status DC Lidocaine HCl (Viscous Lidocaine) 15 ml STK-MED ONCE .ROUTE ; Start 07/13/16 at 12:28; Stop 07/13/16 at 12:29; Status DC Benzocaine (Hurricaine One) 1 spray STK-MED ONCE .ROUTE ; Start 07/13/16 at 12: 28; Stop 07/13/16 at 12:29; Status DC Lidocaine HCl 30 stephan 30 stephan STK-MED ONCE TP ; Start 07/13/16 at 12:28; Stop at 12:29; Status DC Vancomycin HCl 500 mg/Sodium Chloride 100 ml @ 100 mls/hr 1X ONCE IV Last administered on 07/13/16 16:00; Start 07/13/16 at 16:00; Stop 07/13/16 at 16:59 ; Status DC Albumin Human (Albuminar) 100 ml @ 100 mls/hr TID IV Last administered on 07/15 21:51; Start 07/14/16 at 10:00; Stop 07/15/16 at 21:59; Status DC Calcium Acetate (Phoslo) 1,334 mg TIDWMEALS PO Last administered on 07/15/16 17:16; Start 07/14/16 at 12:00 Insulin Aspart (Novolog) 18 units TIDAC SQ Last administered on 07/15/16 08:12 ; Start 07/14/16 at 12:10; Stop 07/15/16 at 10:16; Status DC Insulin Detemir (Levemir) 20 units DAILY10 SQ Last administered on 07/14/16 12 :22; Start 07/14/16 at 12:00; Stop 07/15/16 at 10:15; Status DC Loperamide HCl (Imodium) 2 mg PRN Q4HRS PRN PO DIARRHEA Last administered on 17:08; Start 07/14/16 at 16:30 Vancomycin HCl 1 each 1X ONCE MC Last administered on 07/15/16 06:00; Start 07/15/16 at 06:00; Stop 07/15/16 at 06:01; Status DC Fentanyl Citrate (Fentanyl 2ml Vial) 25 mcg PRN Q5MIN PRN IV MILD PAIN; Start 07/15/16 at 07:00; Stop 07/16/16 at 06:59; Status DC Fentanyl Citrate (Fentanyl 2ml Vial) 50 mcg PRN Q5MIN PRN IV MODERATE PAIN; Start 07/15/16 at 07:00; Stop 07/16/16 at 06:59; Status DC Morphine Sulfate 1 mg PRN Q10MIN PRN IV SEVERE PAIN; Start 07/15/16 at 07:00; Stop 07/16/16 at 06:59; Status DC Lidocaine HCl 2 ml PRN 1X PRN ID PRIOR TO IV START; Start 07/15/16 at 07:00; Stop 07/16/16 at 06:59; Status DC Hydromorphone HCl (Dilaudid) 0.5 mg PRN Q10MIN PRN IV SEV PAIN, Second choice; Start 07/15/16 at 07:00; Stop 07/16/16 at 06:59; Status DC Prochlorperazine Edisylate 5 mg 5 mg PACU PRN PRN IV NAUSEA, MRX1; Start at 07:00; Stop 07/16/16 at 06:59; Status DC Sodium Chloride 1,000 ml @ 0 mls/hr Q0M IV Last administered on 07/16/16 12: 51; Start 07/15/16 at 13:00 Vancomycin HCl/ Sodium Chloride (Iv Sodium Chloride 0.9% 100ml) 100 ml @ 100 mls/hr QMWF IV Last administered on 07/15/16 16:14; Start 07/15/16 at 16:00 Lidocaine HCl 20 ml STK-MED ONCE .ROUTE ; Start 07/15/16 at 07:14; Stop at 07:15; Status DC Cellulose 1 each STK-MED ONCE .ROUTE ; Start 07/15/16 at 07:16; Stop 07/15/16 at 07:17; Status DC Papaverine HCl 60 mg 60 mg STK-MED ONCE .ROUTE ; Start 07/15/16 at 07:16; Stop 07/15/16 at 07:17; Status DC Heparin Sodium (Porcine) 5000 unit/Sodium Chloride 505 ml @ 505 mls/hr 1X PERIOP ONCE IRR ; Start 07/15/16 at 09:00; Stop 07/15/16 at 09:59; Status DC Cefazolin Sodium/ Sodium Chloride (Ancef/Iv Sodium Chloride 0.9% 500ml Bag) 500 ml @ 500 mls/hr 1X PERIOP ONCE IRR ; Start 07/15/16 at 09:00; Stop 07/15/16 at 09:59; Status DC Insulin Detemir (Levemir) 40 units DAILY10 SQ ; Start 07/16/16 at 10:00 Insulin Aspart 26 units 26 units TIDAC SQ Last administered on 07/15/16t 17:23 ; Start 07/15/16 at 11:30 Alteplase, Recombinant/ Sodium Chloride (Activase/Iv Sodium Chloride 0.9% 250ml ) 100 ml @ 10 mls/hr 1X ONCE IV Last administered on 07/15/16t 11:35; Start 07/15/16 at 11:30; Stop 07/15/16 at 21:29; Status DC Fentanyl Citrate (Fentanyl 2ml Vial) 25 mcg PRN Q5MIN PRN IV MILD PAIN; Start 07/16/16 at 07:00; Stop 07/17/16 at 06:59 Fentanyl Citrate (Fentanyl 2ml Vial) 50 mcg PRN Q5MIN PRN IV MODERATE PAIN; Start 07/16/16 at 07:00; Stop 07/17/16 at 06:59 Morphine Sulfate 1 mg 1 mg PRN Q10MIN PRN IV SEVERE PAIN; Start 07/16/16 at 07: 00; Stop 07/17/16 at 06:59 Lactated Ringer's (Iv Lactated Ringers) 1,000 ml @ 0 mls/hr Q0M IV ; Start at 07:00; Stop 07/16/16 at 18:59 Lidocaine HCl 2 ml PRN 1X PRN ID PRIOR TO IV START; Start 07/16/16 at 07:00; Stop 07/17/16 at 06:59 Hydromorphone HCl (Dilaudid) 0.5 mg PRN Q10MIN PRN IV SEV PAIN, Second choice; Start 07/16/16 at 07:00; Stop 07/17/16 at 06:59 Prochlorperazine Edisylate 5 mg 5 mg PACU PRN PRN IV NAUSEA, MRX1; Start at 07:00; Stop 07/17/16 at 06:59 Cefazolin Sodium 1 gm/Sodium Chloride 500 ml @ 500 mls/hr 1X PERIOP ONCE IRR ; Start 07/16/16 at 06:00; Stop 07/16/16 at 06:59; Status DC Heparin Sodium (Porcine)/Sodium Chloride (Heparin Sodium/ Iv Sodium Chloride 0.9 % 500ml Bag) 505 ml @ 505 mls/hr 1X PERIOP ONCE IRR ; Start 07/16/16 at 06:00 ; Stop 07/16/16 at 06:59; Status DC Darbepoetin Naif 100 mcg 100 mcg WEEKLYHS SQ ; Start 07/20/16 at 21:00 Propofol (Diprivan) 20 ml @ As Directed STK-MED ONCE IV ; Start 07/16/16 at 13: 07; Stop 07/16/16 at 13:08; Status DC Ondansetron HCl (Zofran) 4 mg STK-MED ONCE .ROUTE ; Start 07/16/16 at 13:07; Stop 07/16/16 at 13:08; Status DC Famotidine (Pepcid) 20 mg STK-MED ONCE .ROUTE ; Start 07/16/16 at 13:07; Stop at 13:08; Status DC Lidocaine HCl (Lidocaine HCl 2% Abboject) 100 mg STK-MED ONCE .ROUTE ; Start at 13:08; Stop 07/16/16 at 13:09; Status DC Fentanyl Citrate (Fentanyl 2ml Vial) 100 mcg STK-MED ONCE .ROUTE ; Start at 13:08; Stop 07/16/16 at 13:09; Status DC Rocuronium Crandall (Zemuron) 50 mg STK-MED ONCE .ROUTE ; Start 07/16/16 at 13:08 ; Stop 07/16/16 at 13:09; Status DC Cellulose 1 each STK-MED ONCE .ROUTE ; Start 07/16/16 at 14:05; Stop 07/16/16 at 14:06; Status DC Lidocaine HCl 20 ml 20 ml STK-MED ONCE .ROUTE ; Start 07/16/16 at 14:06; Stop at 14:07; Status DC Propofol (Diprivan) 200 ml @ As Directed STK-MED ONCE IV ; Start 07/16/16 at 14 :15; Stop 07/16/16 at 14:16; Status DC Midazolam HCl (Versed) 2 mg STK-MED ONCE .ROUTE ; Start 07/16/16 at 14:16; Stop 07/16/16 at 14:17; Status DC Ketamine HCl 500 mg STK-MED ONCE .ROUTE ; Start 07/16/16 at 14:17; Stop at 14:18; Status DC Active Scripts Active Reported Amiodarone Hcl 200 Mg Tablet 200 Mg PO BID Aspir 81 (Aspirin) 81 Mg Tablet.dr 81 Mg PO DAILY Atorvastatin Calcium 20 Mg Tablet 20 Mg PO HS Cardizem Cd (Diltiazem Hcl) 360 Mg Cap.er.24h 360 Mg PO DAILY Docusate Sodium 100 Mg Capsule 100 Mg PO BID Melatonin 3 Mg Tablet 9 Mg PO DAILY Polyethylene Glycol 3350 17 Gm Powd.pack 17 Gm PO DAILY Senna (Sennosides) 8.6 Mg Tablet 8.6 Mg PO DAILY Clonidine Hcl 0.2 Mg Tablet 0.2 Mg PO DAILY Micro-Guard (Miconazole Nitrate) 85 Gm Powder 85 Gm TP BID Humalog (Insulin Lispro) 100 Unit/1 Ml Vial 100 Unit SQ Buspirone Hcl 5 Mg Tablet 5 Mg PO TID Aranesp Vial (Darbepoetin Naif In Polysorbat) 100 Mcg/1 Ml Vial 100 Mcg SQ WEEKLY Nephron Fa Tablet (Fe Fumarate/Dinorah/Fa/Bcomp&C) 1 Each Tablet 1 Each PO DAILY Ferrous Sulfate 325 Mg Tablet 1 Tab PO DAILY Escitalopram Oxalate 20 Mg Tablet 20 Mg PO DAILY Duoneb 0.5-3(2.5) Mg/3 Ml (Albuterol/Ipratropium) 3 Ml Ampul.neb 3 Ml NEB QID PRN Gabapentin 600 Mg Tablet 600 Mg PO BID Mirtazapine 7.5 Mg Tablet 7.5 Mg PO DAILY Abilify (Aripiprazole) 2 Mg Tablet 2.5 Mg PO DAILY Labetalol Hcl 5 Mg/1 Ml Vial 10 Mg IV PRN Heparin Sod 5,000 Unit/ 0.5 Ml (Heparin Sodium,Porcine/Pf) 5,000 Unit/0.5 Ml Vial 5,000 Unit IJ TID Novolin N (Nph, Human Insulin Isophane) 100 Unit/1 Ml Vial 100 Unit SQ PRN Vitals/I & O Vital Sign - Last 24 Hours 07/15/16 07/15/16 07/15/16 07/15/16 15:01 19:00 21:16 22:37 Temp 96.9 95.7 96.9 96.9 95.7 96.9 Pulse 73 68 67 67 Resp 16 B/P 142/53 151/77 144/53 153/50 Pulse Ox 88 95 93 O2 Delivery Nasal Cannula Nasal Cannula Nasal Cannula O2 Flow Rate 2.0 2.0 2.0 07/16/16 07/16/16 07/16/16 07/16/16 02:57 07:00 08:56 08:57 Temp 96.1 98.1 96.1 98.1 Pulse 69 72 72 72 Resp 19 B/P 134/42 142/55 142/55 142/55 Pulse Ox 92 92 O2 Delivery Nasal Cannula Nasal Cannula O2 Flow Rate 2.0 2.0 07/16/16 07/16/16 07/16/16 09:00 11:00 12:48 Temp 97.9 97.0 97.9 97.0 Pulse 72 68 66 Resp 15 B/P 142/55 141/53 168/74 Pulse Ox 95 94 O2 Delivery Nasal Cannula Room Air O2 Flow Rate 2.0 Intake and Output 07/15/16 07/15/16 07/16/16 15:00 23:00 07:00 Intake Total 100 ml 900 ml 400 ml Output Total 0 ml Balance 100 ml 900 ml 400 ml Nutrition Consultation Dietary Evaluation: Recommendations by RD: Increase Calorie Intake, Protein supplementation Comments: Resume diet and Novasource renal - 475kcal and 21.6g protein/ serving Expected Outcomes/Goals: to meet >75% est nutr needs Malnutrition Findings: Food and Nutrition Intake (Mod: <75% est energy req 7days Weight Status: Morbidly Obese Fluid Accumulation (Non-Severe: Mild depletion TOMASZ ARTEAGA MD Jul 16, 2016 14:40
--- NOTE | 2016-07-16 14:48 | PDOC ---
BRIEF OPERATIVE NOTE Date: Jul 16, 2016 Pre-Op Diagnosis L ankle chronic syndesmotic injury Post-Op Diagnosis same Procedure Performed Exam under anesthesia of Left ankle Surgeon Yanique Anesthesiologist Nicky Anesthesia Type: Conscious Sedation Blood Loss 0ml for my portion Findings reducible ankle dislocation Complications none for my portion DIANE CASTILLO II, MD Jul 16, 2016 14:48
[2016-07-16] MEDS ORDERED: HEPARIN for IV BOLUS 10,000 UNIT/10 ML VIAL. ONE (15:16)
[2016-07-16] MEDS ORDERED: PROTAMINE 50 MG/5 ML VIAL. IV ONE (16:42)
--- NOTE | 2016-07-16 17:15 | PDOC ---
BRIEF OPERATIVE NOTE Date: Jul 16, 2016 Pre-Op Diagnosis ESRD Post-Op Diagnosis Same Procedure Performed Right brachiocephalic fistula Surgeon Luis E Braswell MD Reservation Manager none Anesthesia Type: MAC, Local Blood Loss 50 cc Specimens Obtained none Findings Palpable thrill over the right cephalic artery, weak right radial pulse Complications none Additional Remarks none LUIS E BRASWELL MD Jul 16, 2016 17:14
[2016-07-16] MEDS ORDERED: INSULIN ASPART 100 UNIT/ML 10ML VIAL. SQ ONE ×2 (17:19→17:30)
[2016-07-16] MEDS: FERROUS SULFATE 325 MG TABLET. PO SCH (18:38)
[2016-07-16] MEDS: FOLIC/VIT B COMP W-C (RENAL) TABLET. PO SCH (18:38)
--- NOTE | 2016-07-16 19:52 | OP ---
DATE OF SURGERY: 07/16/2016 SURGEON: Shravan Castillo MD SALES STORE CHECKER: None. PREOPERATIVE DIAGNOSIS: Chronic left ankle syndesmotic disruption. POSTOPERATIVE DIAGNOSIS: Chronic left ankle syndesmotic disruption. PROCEDURE PERFORMED: Examination under anesthesia, left ankle. COMPLICATIONS: None. ESTIMATED BLOOD LOSS: Zero. REASON FOR PROCEDURE: The patient is a very pleasant 60-year-old female, who sustained an ankle injury in November or December and has been walking on it with increasing pain and deformity since then. She was scheduled to undergo placement of an upper extremity fistula by Vascular Surgery and I discussed taking management of this opportunity to perform an examination under anesthesia and she elected to proceed. I had discussed different treatment options with her, she is not interested in any interventions at this time, but did agree to this. DESCRIPTION OF PROCEDURE: The patient was greeted in the preoperative area, where the correct extremity was marked and verified. She was taken back to the operative suite and transferred gently supine to the OR table. She was secured to the bed with seatbelts, and a right upper extremity arm board was then attached. The anesthesiology team re-positioned the IV from the right upper extremity to left upper extremity, and after this, I administered propofol. After allowing this to start taking effect, I then conducted my portion of this procedure and I noted that her ankle was somewhat reducible. I did not feel like I was able to correct it all the way though. Her distal fibula however was fairly fixed. This concluded the portion of my procedure, and at this time, Dr. Braswell took over for the vascular procedure. It should be noted that prior to administering the propofol, we did conduct a timeout of both procedures. SHRAVAN CASTILLO MD DR: WANG/charly JOB#: [id number] / [id number] JOON
[2016-07-16] MEDS: ATORVASTATIN CALCIUM 20 MG TABLET PO SCH (22:02)
[2016-07-16] MEDS: TRAMADOL 50 MG TABLET. PO PRN (22:22)
--- NOTE | 2016-07-16 22:37 | OP ---
DATE OF SURGERY: 07/16/2016 PREOPERATIVE DIAGNOSIS: End-stage renal disease. POSTOPERATIVE DIAGNOSIS: End-stage renal disease. PROCEDURE PERFORMED: Right brachiocephalic fistula. SURGEON: Luis E Bolton M.D. SILO OPERATOR: None. ANESTHESIA TYPE: Monitored anesthesia care with local anesthesia. INDICATIONS: The patient is a 60-year-old female that presented with infected dialysis catheter and required reinitiation of dialysis access. She also requires permanent dialysis access and she had adequate right upper arm cephalic vein on preoperative vein mapping. The risks and benefits of creation of a right brachiocephalic fistula were discussed with the patient. She agreed to proceed. DESCRIPTION OF PROCEDURE: The consent was obtained prior to taking the patient into the operating room in the preoperative holding area. The patient was taken to the operating room and placed in a supine position on the operating room table. The right arm was prepped and draped in the standard sterile fashion. Preoperative antibiotics were not given because the patient was already on antibiotics. A timeout was performed to verify the correct procedure and patient. A transverse incision was made at the right antecubital fossa over the previously marked cephalic vein and brachial artery. The electrocautery was used to divide the soft tissue. A right-angle and [place] were used to sharply dissect out the cephalic vein. The cephalic vein was freed up both proximally and distally. A vessel loop was placed around the cephalic vein. Next, the attention was turned towards the right brachial artery. The aponeurosis was divided with electrocautery and the right brachial artery was dissected free with sharp dissection using Metzenbaum scissors. The vessel loop was placed around the artery proximally and distally and Nunez looped for control of the brachial artery. The patient was given 5000 units of heparin. The cephalic vein was then ligated with 2-0 silk. The cephalic vein was placed over the right brachial artery. The brachial artery was then occluded with the vessel loops. An arteriotomy was made with an 11 blade, extended with Nunez scissors. The cephalic vein was then spatulated to match the size of the arteriotomy. A 7-0 Prolene was used to suture the cephalic vein to the brachial artery and a running anastomosis. Prior to completion of the anastomosis, the artery was forward and backflushed as well as the cephalic vein. Hep saline was then used to flush the artery and the vein. The anastomosis was completed. Several repair sutures were needed in order to obtain hemostasis. The wound was irrigated. Electrocautery was further used to obtain hemostasis. Fibrillar was placed around the arteriovenous anastomosis. The wound was then closed with a running 3-0 Vicryl suture and a subcuticular 4-0 running Vicryl suture. Mastisol and Steri-Strips were applied as well as a 4 x 4 over the incision. The patient was taken to the PACU in stable condition. The patient had a palpable thrill and a weak right radial pulse. All sponge, needle and instrument counts were accurate. FINDINGS: Palpable thrill over the right cephalic vein, weak right radial pulse. COMPLICATIONS: None. ESTIMATED BLOOD LOSS: 50 mL. SPECIMENS OBTAINED: None. LUIS E BOLTON MD DR: Clifford JOB#: [id number] / [id number] JOON
[2016-07-17] VITALS (13 sets, daily range): BP systolic 105–175; BP diastolic 39–118
[2016-07-17] MEDS: ACETAMINOPHEN 325 MG TABLET. PO PRN (04:07)
--- NOTE | 2016-07-17 06:25 | CONS ---
DATE OF CONSULTATION: 07/16/2016 REFERRING PROVIDER: . CONSULTING PROVIDER: Shravan Castillo MD REASON FOR CONSULTATION: Left ankle injury. CHIEF COMPLAINT: Left ankle pain. HISTORY OF PRESENT ILLNESS: The patient is a very pleasant 60-year-old female with multiple medical comorbidities, who was admitted for weakness, fevers, mental status changes and diarrhea for about a week prior to her admission on 07/06/2016. She feels like she is recovering from this. Regarding her left ankle, her and her family tell me she had an ankle injury back in November or December and was placed into a boot. At some point around this time, she also had an I and D done of abscess over her medial ankle. Since that time, she has been walking on her ankle and has noticed worsening deformity. Her ankle hurts, but she is able to ambulate on it. The pain does go up her leg. PAST MEDICAL HISTORY: Significant for: 1. End-stage renal disease, on dialysis. 2. History of sepsis. 3. Type 2 diabetes. 4. Hyperlipidemia. 5. Hypertension. 6. Peripheral vascular disease. PAST SURGICAL HISTORY: 1. Catheter placement. 2. Fistula. 3. Toe amputations. MEDICATIONS: Reviewed, please see MRAD. ALLERGIES: None. FAMILY HISTORY: Positive for heart disease. SOCIAL HISTORY: No alcohol or tobacco. PHYSICAL EXAMINATION: GENERAL: The patient is alert and oriented. No acute distress. Mood and affect appropriate. She is examined lying in a hospital bed. HEENT: Normocephalic, atraumatic. Extraocular muscles are intact. CARDIOVASCULAR: Regular rate and rhythm. LUNGS: Respirations are unlabored with symmetric chest rise. EXTREMITIES: Examination of bilateral lower extremities reveals lateral toe amputations at her right foot. Examination of her left foot reveals a gross valgus deformity with a healing wound medially with eschar still present. No erythema or fluctuance over this area. No other wounds on her left lower extremity. She is tender around her ankle and has decreased active range of motion. EHL and FHL 5/5. Decreased sensation. IMAGING: X-rays are reviewed, reveal lateral talar dislocation with syndesmotic widening present. IMPRESSION: Chronic syndesmotic injury. PLAN: I did discuss different treatment options with her and she is heading to the OR for fistula placement today and I discussed that I would like to do an examination under anesthesia, although my suspicion is that this is fairly fixed deformity at this point. She is agreeable to this. I did discuss avoiding a regular CAM boot as this would likely lead to abnormal pressures on her soft tissues. I did discuss that would require surgery, likely in the form of a fibular osteotomy with talar dome resection and hindfoot fusion if the deformity is not correctable. She is uncertain that she would like to go through with that. We will let her recover from her medical issues this hospitalization and follow up with her as an outpatient as well. SHRAVAN CASTILLO MD DR: WANG/charly JOB#: [id number] / [id number] JOON
[2016-07-17] MEDS: INSULIN ASPART 300 UNITS/3 ML INSULN.PEN SQ SCH ×4 (07:30→18:14)
[2016-07-17] MEDS: CALCIUM ACETATE 667 MG CAPSULE PO SCH ×4 (08:00→18:09)
[2016-07-17] MEDS ORDERED: IV NORMAL SALINE 1000ML BAG 1,000 ML IV PRN ×2 (08:34)
[2016-07-17] MEDS ORDERED: DIALYSIS PATIENT. MC PRN (08:45)
[2016-07-17] MEDS ORDERED: 0.9 % SODIUM CHLORIDE 10 ML DISP.SYRIN. IV PRN ×2 (08:45)
--- NOTE | 2016-07-17 08:58 | PDOC ---
PROGRESS NOTES Subjective Subjective No new complaints. Objective Objective Vital Signs Date Time Temp Pulse Resp B/P Pulse Ox O2 Delivery O2 Flow Rate FiO2 07/17/16 07:45 Room Air 07/17/16 07:00 97.8 76 18 132/46 94 97.8 07/17/16 03:00 2.0 Intake and Output 07/17/16 07:00 Intake Total 490 ml Output Total 50 ml Balance 440 ml Intake Oral 490 ml Output Urine Total 0 ml Estimated Blood Loss 50 ml # Voids 1 Physical Exam Physical Exam She is alert and comfortable on dialysis bed and she continues to require physical assistance for mobility. Assessment Assessment Problems Medical Problems: (1) Anemia Status: Acute (2) End stage renal disease Status: Acute (3) Generalized weakness Status: Acute (4) Healthcare-associated pneumonia Status: Acute (5) Sepsis Status: Acute (6) Transient hypotension Status: Acute (7) Urinary tract infection Status: Acute Plan Plan of Care Agree with plans for SNF transfer when medically stable. Comment Review of Relevant I have reviewed the following items dominga (where applicable) has been applied. Labs Laboratory Tests Test 07/15/16 10:57 07/15/16 17:06 07/15/16 20:54 07/16/16 04:20 Glucose (Fingerstick) 204mg/dL (70-99) 342mg/dL (70-99) 252mg/dL (70-99) White Blood Count 9.2x10^3/uL (4.0-11.0) Red Blood Count 3.41x10^6/uL (3.50-5.40) Hemoglobin 9.1g/dL (12.0-15.5) Hematocrit 28.8% (36.0-47.0) Mean Corpuscular Volume 85fL (79-100) Mean Corpuscular Hemoglobin 27pg (25-35) Mean Corpuscular Hemoglobin Concent 32g/dL (31-37) Red Cell Distribution Width 15.9% (11.5-14.5) Platelet Count 199x10^3/uL (140-400) Neutrophils (%) (Auto) 87% (31-73) Lymphocytes (%) (Auto) 7% (24-48) Monocytes (%) (Auto) 5% (0-9) Eosinophils (%) (Auto) 2% (0-3) Basophils (%) (Auto) 0% (0-3) Neutrophils # (Auto) 8.0x10^3uL (1.8-7.7) Lymphocytes # (Auto) 0.6x10^3/uL (1.0-4.8) Monocytes # (Auto) 0.5x10^3/uL (0.0-1.1) Eosinophils # (Auto) 0.1x10^3/uL (0.0-0.7) Basophils # (Auto) 0.0x10^3/uL (0.0-0.2) Sodium Level 138mmol/L (136-145) Potassium Level 3.8mmol/L (3.5-5.1) Chloride Level 99mmol/L (98-107) Carbon Dioxide Level 30mmol/L (21-32) Anion Gap 9 (6-14) Blood Urea Nitrogen 39mg/dL (7-20) Creatinine 4.1mg/dL (0.6-1.0) Estimated GFR (Cockcroft-Gault) 11.1 BUN/Creatinine Ratio 10 (6-20) Glucose Level 193mg/dL (70-99) Calcium Level 7.9mg/dL (8.5-10.1) Total Bilirubin 0.8mg/dL (0.2-1.0) Aspartate Amino Transf (AST/SGOT) 28U/L (15-37) Alanine Aminotransferase (ALT/SGPT) 29U/L (14-59) Alkaline Phosphatase 178U/L (46-116) Total Protein 7.2g/dL (6.4-8.2) Albumin 3.1g/dL (3.4-5.0) Albumin/Globulin Ratio 0.8 (1.0-1.7) Test 07/16/16 07:44 07/16/16 11:05 07/16/16 17:04 07/16/16 18:26 Glucose (Fingerstick) 191mg/dL (70-99) 207mg/dL (70-99) 236mg/dL (70-99) 227mg/dL (70-99) Test 07/16/16 21:27 07/16/16 22:03 07/17/16 06:33 07/17/16 07:20 Glucose (Fingerstick) 167mg/dL (70-99) 159mg/dL (70-99) 206mg/dL (70-99) 216mg/dL (70-99) Laboratory Tests Test 07/16/16 11:05 07/16/16 17:04 07/16/16 18:26 07/16/16 21:27 Glucose (Fingerstick) 207mg/dL (70-99) 236mg/dL (70-99) 227mg/dL (70-99) 167mg/dL (70-99) Test 07/16/16 22:03 07/17/16 06:33 07/17/16 07:20 Glucose (Fingerstick) 159mg/dL (70-99) 206mg/dL (70-99) 216mg/dL (70-99) Microbiology 07/11/16 Blood Culture - Final, Complete NO GROWTH AFTER 5 DAYS 07/08/16 Fecal Leukocyte Stain - Final, Complete 07/06/16 Urine Culture - Final, Complete 07/06/16 Urine Culture Result 1 (NEGRITO) - Final, Complete 07/06/16 Gram Stain - Final, Complete Medications Current Medications Sodium Chloride (Iv Sodium Chloride 0.9% 500ml Bag) 500 ml @ 1,000 mls/hr 1X ONCE IV Last administered on 07/06/16 13:33; Start 07/06/16 at 12:45; Stop 01/12 at 13:14; Status DC Ondansetron HCl (Zofran) 4 mg 1X ONCE IV Last administered on 07/06/16 13:33 ; Start 07/06/16 at 12:45; Stop 07/06/16 at 12:46; Status DC Vancomycin HCl (Vanco Per Pharmacy) 1 each PRN DAILY PRN MC SEE COMMENTS Last administered on 07/16/16 12:26; Start 07/06/16 at 14:00 Piperacillin Sod/ Tazobactam Sod (Zosyn Per Pharmacy) 1 each PRN DAILY PRN MC SEE COMMENTS; Start 07/06/16 at 14:00; Stop 07/08/16 at 09:55; Status DC Levofloxacin/ Dextrose 1 each 1 each PRN DAILY PRN MC SEE COMMENTS; Start 07/06 at 14:00; Stop 07/08/16 at 09:55; Status DC Vancomycin HCl/ Sodium Chloride (Iv Sodium Chloride 0.9% 500ml Bag) 500 ml @ 250 mls/hr 1X ONCE IV Last administered on 07/06/16 15:03; Start 07/06/16 at 14:15; Stop 07/06/16 at 16:14; Status DC Ondansetron HCl (Zofran) 4 mg PRN Q8HRS PRN IV NAUSEA/VOMITING; Start 07/06/16 at 14:30; Stop 07/07/16 at 14:29; Status DC Morphine Sulfate 2 mg PRN Q2HR PRN IV PAIN; Start 07/06/16 at 14:30; Stop 07/07 at 14:29; Status DC Acetaminophen 650 mg 650 mg PRN Q4HRS PRN PO FEVER Last administered on 05:17; Start 07/06/16 at 14:30; Stop 07/07/16 at 14:29; Status DC Piperacillin Sod/ Tazobactam Sod 2.25 gm/Sodium Chloride 50 ml @ 100 mls/hr Q8HRS IV Last administered on 07/08/16 05:17; Start 07/06/16 at 15:00; Stop at 09:55; Status DC Levofloxacin/ Dextrose (LEVAQUIN 500mg PREMIX) 100 ml @ 100 mls/hr Q48H IV Last administered on 07/06/16 17:36; Start 07/06/16 at 15:00; Stop 07/08/16 at 09:55; Status DC Darbepoetin Naif 60 mcg 60 mcg WEEKLYHS SQ Last administered on 07/13/16 22:41 ; Start 07/06/16 at 21:00; Stop 07/16/16 at 09:19; Status DC Sodium Chloride (Iv Sodium Chloride 0.9% 1000ml Bag) 1,000 ml @ 1,000 mls/hr Q1H PRN IV hypotension; Start 07/06/16 at 23:29; Stop 07/07/16 at 05:28; Status DC Sodium Chloride (Normal Saline Flush) 10 ml 1X PRN PRN IV AP catheter pack; Start 07/06/16 at 23:30; Stop 07/07/16 at 23:29; Status DC Sodium Chloride (Normal Saline Flush) 10 ml 1X PRN PRN IV [employer] catheter pack; Start 07/06/16 at 23:30; Stop 07/07/16 at 23:29; Status DC Info (PHARMACY MONITORING -- do not chart) 1 each PRN DAILY PRN MC SEE COMMENTS ; Start 07/06/16 at 23:30; Stop 07/09/16 at 21:17; Status DC Info 1 each 1 each PRN DAILY PRN MC SEE COMMENTS; Start 07/06/16 at 23:30; Stop 07/07/16 at 13:09; Status DC Vancomycin HCl/ Sodium Chloride (Iv Sodium Chloride 0.9% 250ml) 250 ml @ 250 mls/hr 1X ONCE IV Last administered on 07/07/16 06:36; Start 07/07/16 at 06: 30; Stop 07/07/16 at 07:29; Status DC Nystatin (Nystop) 1 stephan BID TP Last administered on 07/16/16 22:04; Start 02/12 at 14:00 Oxycodone HCl (Roxicodone) 5 mg PRN Q4HRS PRN PO PAIN; Start 07/07/16 at 18:00 ; Stop 07/07/16 at 18:38; Status DC Acetaminophen (Tylenol) 650 mg PRN Q6HRS PRN PO MILD PAIN / TEMP Last administered on 07/17/16 04:07; Start 07/07/16 at 18:45 Tramadol HCl (Ultram) 50 mg PRN Q6HRS PRN PO MODERATE PAIN Last administered on 07/16/16 22:22; Start 07/07/16 at 18:45 Acetaminophen/ Hydrocodone Bitart (Lortab 5/325) 1 tab PRN Q4HRS PRN PO SEVERE PAIN Last administered on 07/13/16 22:42; Start 07/08/16 at 09:30 Vancomycin HCl 1 each 1X ONCE MC Last administered on 07/09/16 05:31; Start 07/09/16 at 05:00; Stop 07/09/16 at 05:01; Status DC Amiodarone HCl (Cordarone) 200 mg BID PO Last administered on 07/16/16 22:03; Start 07/08/16 at 21:00 Aripiprazole (Abilify) 2.5 mg DAILY PO Last administered on 07/16/16 08:57; Start 07/09/16 at 09:00 Aspirin (Ecotrin) 81 mg DAILY PO Last administered on 07/14/16 09:10; Start at 15:00 Atorvastatin Calcium (Lipitor) 20 mg HS PO Last administered on 07/16/16 22:02 ; Start 07/08/16 at 21:00 Buspirone HCl (Buspar) 5 mg TID PO Last administered on 07/16/16 22:03; Start 07/08/16 at 15:00 Clonidine HCl (Catapres) 0.2 mg DAILY PO Last administered on 07/16/16 08:57; Start 07/09/16 at 09:00 Docusate Sodium (Colace) 100 mg BID PO Last administered on 07/13/16 22:41; Start 07/08/16 at 21:00 Ferrous Sulfate (Feosol) 325 mg DAILY PO Last administered on 07/16/16 18:38; Start 07/09/16 at 09:00 Heparin Sodium (Porcine) 5,000 unit TID SQ Last administered on 07/15/16 17:22 ; Start 07/08/16 at 15:00 Albuterol/ Ipratropium (Duoneb) 3 ml PRN QID PRN NEB SHORTNESS OF BREATH; Start 07/08/16 at 14:45 Labetalol HCl (Normodyne) 10 mg PRN BID PRN IVP HYPERTENSION, SEE COMMENTS; Start 07/08/16 at 15:15 Nystatin (Nystop) 1 stephan BID TP ; Start 07/08/16 at 21:00; Status Cancel Mirtazapine (Remeron) 7.5 mg DAILY PO Last administered on 07/16/16 08:55; Start 07/09/16 at 09:00 Polyethylene Glycol (miraLAX PACKET) 17 gm DAILY PO Last administered on 09:00; Start 07/09/16 at 09:00 Sennosides (Senna) 8.6 mg DAILY PO Last administered on 07/10/16 14:45; Start 07/09/16 at 09:00 Non-Formulary Medication 100 mcg WEEKLY SQ TO TREAT ANEMIA; Start 07/15/16 at 09 :00; Status UNV Diltiazem HCl (Cardizem 24hr Cd) 360 mg DAILY PO Last administered on 08:56; Start 07/09/16 at 09:00 Escitalopram Oxalate (Lexapro) 20 mg DAILY PO Last administered on 07/16/16 08 :55; Start 07/09/16 at 09:00 Vitamin B Complex/ Vitamin C (Zoe-Kiran) 1 tab DAILY PO Last administered on 18:38; Start 07/09/16 at 09:00 Gabapentin (Neurontin) 600 mg BID PO Last administered on 07/16/16 22:02; Start 07/08/16 at 21:00 Non-Formulary Medication 9 mg DAILY PO ; Start 07/09/16 at 09:00; Status UNV Insulin Aspart (Novolog) 10 units TIDAC SQ Last administered on 07/14/16 09:26 ; Start 07/08/16 at 16:30; Stop 07/14/16 at 11:48; Status DC Heparin Sodium (Porcine) (Heparin Sodium) 10,000 unit STK-MED ONCE .ROUTE ; Start 07/09/16 at 11:22; Stop 07/09/16 at 11:23; Status DC Lidocaine/Sodium Bicarbonate 20 ml 20 ml STK-MED ONCE IJ ; Start 07/09/16 at 11: 22; Stop 07/09/16 at 11:23; Status DC Heparin Sodium/ Sodium Chloride 500 ml @ As Directed STK-MED ONCE .ROUTE ; Start 07/09/16 at 11:22; Stop 07/09/16 at 11:23; Status DC Heparin Sodium/ Sodium Chloride 60 unit 1X ONCE IV Last administered on 12:21; Start 07/09/16 at 11:45; Stop 07/09/16 at 11:51; Status DC Heparin Sodium (Porcine) (Heparin Sodium) 2,500 unit 1X ONCE INT CAT Last administered on 07/09/16 12:21; Start 07/09/16 at 11:45; Stop 07/09/16 at 11:51 ; Status DC Lidocaine/Sodium Bicarbonate (Buffered Lidocaine 1%) 3 ml 1X ONCE IJ Last administered on 07/09/16 12:20; Start 07/09/16 at 11:45; Stop 07/09/16 at 11:51 ; Status DC Methylprednisolone Acetate (Depo-Medrol 40mg Vial) 40 mg 1X ONCE IM ; Start at 14:45; Stop 07/09/16 at 14:59; Status DC Bupivacaine HCl 10 ml 10 ml 1X ONCE IJ ; Start 07/09/16 at 14:45; Stop at 14:59; Status DC Sodium Chloride 1,000 ml @ 1,000 mls/hr Q1H PRN IV hypotension; Start 07/09/16 at 15:15; Stop 07/09/16 at 21:14; Status DC Albumin Human (Albuminar) 200 ml @ 200 mls/hr 1X PRN PRN IV Hypotension; Start 07/09/16 at 15:15; Stop 07/09/16 at 21:14; Status DC Acetaminophen (Tylenol) 500 mg 1X PRN PRN PO MILD PAIN / TEMP; Start 07/09/16 at 15:15; Stop 07/10/16 at 15:14; Status DC Diphenhydramine HCl (Benadryl) 25 mg 1X PRN PRN IV ITCHING; Start 07/09/16 at 15:15; Stop 07/10/16 at 15:14; Status DC Diphenhydramine HCl (Benadryl) 25 mg 1X PRN PRN IV ITCHING; Start 07/09/16 at 15:15; Stop 07/10/16 at 15:14; Status DC Labetalol HCl (Normodyne) 10 mg PRN Q1HR PRN IVP SBP > 180; Start 07/09/16 at 15:15; Stop 07/10/16 at 15:14; Status DC Clonidine HCl (Catapres) 0.1 mg 1X PRN PRN PO SBP > 180; Start 07/09/16 at 15: 15; Stop 07/10/16 at 15:14; Status DC Info (PHARMACY MONITORING -- do not chart) 1 each PRN DAILY PRN MC SEE COMMENTS ; Start 07/09/16 at 15:15; Status Cancel Vancomycin HCl 1 each 1 each 1X ONCE MC ; Start 07/11/16 at 06:00; Stop at 06:01; Status DC Sodium Chloride (Iv Sodium Chloride 0.9% 1000ml Bag) 1,000 ml @ 1,000 mls/hr Q1H PRN IV hypotension; Start 07/10/16 at 10:45; Stop 07/10/16 at 16:44; Status DC Sodium Chloride (Normal Saline Flush) 10 ml 1X PRN PRN IV AP catheter pack; Start 07/10/16 at 10:45; Stop 07/11/16 at 10:44; Status DC Sodium Chloride (Normal Saline Flush) 10 ml 1X PRN PRN IV [employer] catheter pack; Start 07/10/16 at 10:45; Stop 07/11/16 at 10:44; Status DC Info (PHARMACY MONITORING -- do not chart) 1 each PRN DAILY PRN MC SEE COMMENTS ; Start 07/10/16 at 10:45; Stop 07/10/16 at 14:25; Status DC Info 1 each 1 each PRN DAILY PRN MC SEE COMMENTS; Start 07/10/16 at 10:45; Status Cancel Lactated Ringer's 1,000 ml @ 50 mls/hr Q20H IV ; Start 07/13/16 at 07:00; Stop 07/13/16 at 18:59; Status Cancel Vancomycin HCl 500 mg/Sodium Chloride 100 ml @ 100 mls/hr 1X ONCE IV Last administered on 07/11/16t 18:00; Start 07/11/16 at 18:00; Stop 07/11/16 at 18:59 ; Status DC Sodium Chloride 1,000 ml @ 1,000 mls/hr Q1H PRN IV hypotension; Start 07/13/16 at 08:26; Stop 07/13/16 at 14:25; Status DC Albumin Human (Albuminar) 200 ml @ 200 mls/hr 1X PRN PRN IV Hypotension; Start 07/13/16 at 08:30; Stop 07/13/16 at 14:29; Status DC Midodrine (Proamatine) 5 mg 1X ONCE PO ; Start 07/13/16 at 08:30; Stop at 08:35; Status DC Acetaminophen (Tylenol) 500 mg 1X PRN PRN PO MILD PAIN / TEMP; Start 07/13/16 at 08:30; Stop 07/14/16 at 08:29; Status DC Diphenhydramine HCl (Benadryl) 25 mg 1X PRN PRN IV ITCHING; Start 07/13/16 at 08:30; Stop 07/14/16 at 08:29; Status DC Diphenhydramine HCl (Benadryl) 25 mg 1X PRN PRN IV ITCHING; Start 07/13/16 at 08:30; Stop 07/14/16 at 08:29; Status DC Labetalol HCl (Normodyne) 10 mg PRN Q1HR PRN IVP SBP > 180; Start 07/13/16 at 08:30; Stop 07/14/16 at 08:29; Status DC Clonidine HCl 0.1 mg 0.1 mg 1X PRN PRN PO SBP > 180; Start 07/13/16 at 08:30; Stop 07/14/16 at 08:29; Status DC Sodium Chloride (Iv Sodium Chloride 0.9% 1000ml Bag) 1,000 ml @ 400 mls/hr Q2H30M PRN IV PATENCY; Start 07/13/16 at 08:26; Stop 07/13/16 at 20:25; Status DC Info 1 each 1 each PRN DAILY PRN MC SEE COMMENTS; Start 07/13/16 at 08:30 Sodium Chloride 1,000 ml @ 0 mls/hr Q0M IV Last administered on 07/13/16t 12: 39; Start 07/13/16 at 12:15 Propofol (Diprivan) 40 ml @ As Directed STK-MED ONCE IV ; Start 07/13/16 at 12: 27; Stop 07/13/16 at 12:28; Status DC Lidocaine HCl (Xylocaine-Mpf 1% Vial) 5 ml STK-MED ONCE .ROUTE ; Start 07/13/16 at 12:27; Stop 07/13/16 at 12:28; Status DC Lidocaine HCl (Viscous Lidocaine) 15 ml STK-MED ONCE .ROUTE ; Start 07/13/16 at 12:28; Stop 07/13/16 at 12:29; Status DC Benzocaine (Hurricaine One) 1 spray STK-MED ONCE .ROUTE ; Start 07/13/16 at 12: 28; Stop 07/13/16 at 12:29; Status DC Lidocaine HCl 30 stephan 30 stephan STK-MED ONCE TP ; Start 07/13/16 at 12:28; Stop at 12:29; Status DC Vancomycin HCl 500 mg/Sodium Chloride 100 ml @ 100 mls/hr 1X ONCE IV Last administered on 07/13/16t 16:00; Start 07/13/16 at 16:00; Stop 07/13/16 at 16:59 ; Status DC Albumin Human (Albuminar) 100 ml @ 100 mls/hr TID IV Last administered on 07/15 21:51; Start 07/14/16 at 10:00; Stop 07/15/16 at 21:59; Status DC Calcium Acetate (Phoslo) 1,334 mg TIDWMEALS PO Last administered on 07/16/16 18:38; Start 07/14/16 at 12:00 Insulin Aspart (Novolog) 18 units TIDAC SQ Last administered on 07/15/16 08:12 ; Start 07/14/16 at 12:10; Stop 07/15/16 at 10:16; Status DC Insulin Detemir (Levemir) 20 units DAILY10 SQ Last administered on 07/14/16 12 :22; Start 07/14/16 at 12:00; Stop 07/15/16 at 10:15; Status DC Loperamide HCl (Imodium) 2 mg PRN Q4HRS PRN PO DIARRHEA Last administered on 17:08; Start 07/14/16 at 16:30 Vancomycin HCl 1 each 1X ONCE MC Last administered on 07/15/16 06:00; Start 07/15/16 at 06:00; Stop 07/15/16 at 06:01; Status DC Fentanyl Citrate (Fentanyl 2ml Vial) 25 mcg PRN Q5MIN PRN IV MILD PAIN; Start 07/15/16 at 07:00; Stop 07/16/16 at 06:59; Status DC Fentanyl Citrate (Fentanyl 2ml Vial) 50 mcg PRN Q5MIN PRN IV MODERATE PAIN; Start 07/15/16 at 07:00; Stop 07/16/16 at 06:59; Status DC Morphine Sulfate 1 mg PRN Q10MIN PRN IV SEVERE PAIN; Start 07/15/16 at 07:00; Stop 07/16/16 at 06:59; Status DC Lidocaine HCl 2 ml PRN 1X PRN ID PRIOR TO IV START; Start 07/15/16 at 07:00; Stop 07/16/16 at 06:59; Status DC Hydromorphone HCl (Dilaudid) 0.5 mg PRN Q10MIN PRN IV SEV PAIN, Second choice; Start 07/15/16 at 07:00; Stop 07/16/16 at 06:59; Status DC Prochlorperazine Edisylate 5 mg 5 mg PACU PRN PRN IV NAUSEA, MRX1; Start at 07:00; Stop 07/16/16 at 06:59; Status DC Sodium Chloride 1,000 ml @ 0 mls/hr Q0M IV Last administered on 07/16/16 12: 51; Start 07/15/16 at 13:00 Vancomycin HCl/ Sodium Chloride (Iv Sodium Chloride 0.9% 100ml) 100 ml @ 100 mls/hr QMWF IV Last administered on 07/15/16 16:14; Start 07/15/16 at 16:00 Lidocaine HCl 20 ml STK-MED ONCE .ROUTE ; Start 07/15/16 at 07:14; Stop at 07:15; Status DC Cellulose 1 each STK-MED ONCE .ROUTE ; Start 07/15/16 at 07:16; Stop 07/15/16 at 07:17; Status DC Papaverine HCl 60 mg 60 mg STK-MED ONCE .ROUTE ; Start 07/15/16 at 07:16; Stop 07/15/16 at 07:17; Status DC Heparin Sodium (Porcine) 5000 unit/Sodium Chloride 505 ml @ 505 mls/hr 1X PERIOP ONCE IRR ; Start 07/15/16 at 09:00; Stop 07/15/16 at 09:59; Status DC Cefazolin Sodium/ Sodium Chloride (Ancef/Iv Sodium Chloride 0.9% 500ml Bag) 500 ml @ 500 mls/hr 1X PERIOP ONCE IRR ; Start 07/15/16 at 09:00; Stop 07/15/16 at 09:59; Status DC Insulin Detemir (Levemir) 40 units DAILY10 SQ ; Start 07/16/16 at 10:00 Insulin Aspart 26 units 26 units TIDAC SQ Last administered on 07/16/16 19:23 ; Start 07/15/16 at 11:30 Alteplase, Recombinant/ Sodium Chloride (Activase/Iv Sodium Chloride 0.9% 250ml ) 100 ml @ 10 mls/hr 1X ONCE IV Last administered on 07/15/16 11:35; Start 07/15/16 at 11:30; Stop 07/15/16 at 21:29; Status DC Fentanyl Citrate (Fentanyl 2ml Vial) 25 mcg PRN Q5MIN PRN IV MILD PAIN; Start 07/16/16 at 07:00; Stop 07/17/16 at 06:59; Status DC Fentanyl Citrate (Fentanyl 2ml Vial) 50 mcg PRN Q5MIN PRN IV MODERATE PAIN; Start 07/16/16 at 07:00; Stop 07/17/16 at 06:59; Status DC Morphine Sulfate 1 mg 1 mg PRN Q10MIN PRN IV SEVERE PAIN; Start 07/16/16 at 07: 00; Stop 07/17/16 at 06:59; Status DC Lactated Ringer's (Iv Lactated Ringers) 1,000 ml @ 0 mls/hr Q0M IV ; Start at 07:00; Stop 07/16/16 at 18:59; Status DC Lidocaine HCl 2 ml PRN 1X PRN ID PRIOR TO IV START; Start 07/16/16 at 07:00; Stop 07/17/16 at 06:59; Status DC Hydromorphone HCl (Dilaudid) 0.5 mg PRN Q10MIN PRN IV SEV PAIN, Second choice; Start 07/16/16 at 07:00; Stop 07/17/16 at 06:59; Status DC Prochlorperazine Edisylate 5 mg 5 mg PACU PRN PRN IV NAUSEA, MRX1; Start at 07:00; Stop 07/17/16 at 06:59; Status DC Cefazolin Sodium 1 gm/Sodium Chloride 500 ml @ 500 mls/hr 1X PERIOP ONCE IRR Last administered on 07/16/16 14:37; Start 07/16/16 at 06:00; Stop 07/16/16 at 06:59; Status DC Heparin Sodium (Porcine)/Sodium Chloride (Heparin Sodium/ Iv Sodium Chloride 0.9 % 500ml Bag) 505 ml @ 505 mls/hr 1X PERIOP ONCE IRR Last administered on 07/16 14:37; Start 07/16/16 at 06:00; Stop 07/16/16 at 06:59; Status DC Darbepoetin Naif 100 mcg 100 mcg WEEKLYHS SQ ; Start 07/20/16 at 21:00 Propofol (Diprivan) 20 ml @ As Directed STK-MED ONCE IV ; Start 07/16/16 at 13: 07; Stop 07/16/16 at 13:08; Status DC Ondansetron HCl (Zofran) 4 mg STK-MED ONCE .ROUTE ; Start 07/16/16 at 13:07; Stop 07/16/16 at 13:08; Status DC Famotidine (Pepcid) 20 mg STK-MED ONCE .ROUTE ; Start 07/16/16 at 13:07; Stop at 13:08; Status DC Lidocaine HCl (Lidocaine HCl 2% Abboject) 100 mg STK-MED ONCE .ROUTE ; Start at 13:08; Stop 07/16/16 at 13:09; Status DC Fentanyl Citrate (Fentanyl 2ml Vial) 100 mcg STK-MED ONCE .ROUTE ; Start at 13:08; Stop 07/16/16 at 13:09; Status DC Rocuronium [place] (Zemuron) 50 mg STK-MED ONCE .ROUTE ; Start 07/16/16 at 13:08 ; Stop 07/16/16 at 13:09; Status DC Cellulose 1 each STK-MED ONCE .ROUTE Last administered on 07/16/16 16:28; Start 07/16/16 at 14:05; Stop 07/16/16 at 14:06; Status DC Lidocaine HCl 20 ml 20 ml STK-MED ONCE .ROUTE Last administered on 07/16/16 14 :37; Start 07/16/16 at 14:06; Stop 07/16/16 at 14:07; Status DC Propofol (Diprivan) 200 ml @ As Directed STK-MED ONCE IV ; Start 07/16/16 at 14 :15; Stop 07/16/16 at 14:16; Status DC Midazolam HCl (Versed) 2 mg STK-MED ONCE .ROUTE ; Start 07/16/16 at 14:16; Stop 07/16/16 at 14:17; Status DC Ketamine HCl 500 mg STK-MED ONCE .ROUTE ; Start 07/16/16 at 14:17; Stop at 14:18; Status DC Heparin Sodium (Porcine) (Heparin Sodium) 10,000 unit STK-MED ONCE .ROUTE ; Start 07/16/16 at 15:16; Stop 07/16/16 at 15:17; Status DC Protamine Sulfate 50 mg STK-MED ONCE IV ; Start 07/16/16 at 16:42; Stop at 16:43; Status DC Insulin Aspart (Novolog Vial) 6 unit 1X PACU ONCE SQ Last administered on 07/16t 17:23; Start 07/16/16 at 17:30; Stop 07/16/16 at 17:31; Status DC Insulin Aspart 100 unit 100 unit STK-MED ONCE SQ ; Start 07/16/16 at 17:19; Stop 07/16/16 at 17:20; Status DC Sodium Chloride (Iv Sodium Chloride 0.9% 1000ml Bag) 1,000 ml @ 1,000 mls/hr Q1H PRN IV hypotension; Start 07/17/16 at 08:34; Stop 07/17/16 at 14:33 Sodium Chloride (Normal Saline Flush) 10 ml 1X PRN PRN IV AP catheter pack; Start 07/17/16 at 08:45; Stop 07/18/16 at 08:44 Sodium Chloride 10 ml 10 ml 1X PRN PRN IV [employer] catheter pack; Start 07/17/16 at 08:45; Stop 07/18/16 at 08:44 Sodium Chloride (Iv Sodium Chloride 0.9% 1000ml Bag) 1,000 ml @ 400 mls/hr Q2H30M PRN IV PATENCY; Start 07/17/16 at 08:34; Stop 07/17/16 at 20:33 Info (PHARMACY MONITORING -- do not chart) 1 each PRN DAILY PRN MC SEE COMMENTS ; Start 07/17/16 at 08:45 Active Scripts Active Reported Amiodarone Hcl 200 Mg Tablet 200 Mg PO BID Aspir 81 (Aspirin) 81 Mg Tablet.dr 81 Mg PO DAILY Atorvastatin Calcium 20 Mg Tablet 20 Mg PO HS Cardizem Cd (Diltiazem Hcl) 360 Mg Cap.er.24h 360 Mg PO DAILY Docusate Sodium 100 Mg Capsule 100 Mg PO BID Melatonin 3 Mg Tablet 9 Mg PO DAILY Polyethylene Glycol 3350 17 Gm Powd.pack 17 Gm PO DAILY Senna (Sennosides) 8.6 Mg Tablet 8.6 Mg PO DAILY Clonidine Hcl 0.2 Mg Tablet 0.2 Mg PO DAILY Micro-Guard (Miconazole Nitrate) 85 Gm Powder 85 Gm TP BID Humalog (Insulin Lispro) 100 Unit/1 Ml Vial 100 Unit SQ Buspirone Hcl 5 Mg Tablet 5 Mg PO TID Aranesp Vial (Darbepoetin Naif In Polysorbat) 100 Mcg/1 Ml Vial 100 Mcg SQ WEEKLY Nephron Fa Tablet (Fe Fumarate/Dinorah/Fa/Bcomp&C) 1 Each Tablet 1 Each PO DAILY Ferrous Sulfate 325 Mg Tablet 1 Tab PO DAILY Escitalopram Oxalate 20 Mg Tablet 20 Mg PO DAILY Duoneb 0.5-3(2.5) Mg/3 Ml (Albuterol/Ipratropium) 3 Ml Ampul.neb 3 Ml NEB QID PRN Gabapentin 600 Mg Tablet 600 Mg PO BID Mirtazapine 7.5 Mg Tablet 7.5 Mg PO DAILY Abilify (Aripiprazole) 2 Mg Tablet 2.5 Mg PO DAILY Labetalol Hcl 5 Mg/1 Ml Vial 10 Mg IV PRN Heparin Sod 5,000 Unit/ 0.5 Ml (Heparin Sodium,Porcine/Pf) 5,000 Unit/0.5 Ml Vial 5,000 Unit IJ TID Novolin N (Nph, Human Insulin Isophane) 100 Unit/1 Ml Vial 100 Unit SQ PRN Vitals/I & O Vital Sign - Last 24 Hours 07/16/16 07/16/16 07/16/16 07/16/16 09:00 11:00 12:48 17:00 Temp 97.9 97.0 97.3 97.9 97.0 97.3 Pulse 72 68 66 64 Resp 14 B/P 142/55 141/53 168/74 149/68 Pulse Ox 95 94 100 O2 Delivery Nasal Cannula Room Air Simple Mask O2 Flow Rate 2.0 10 07/16/16 07/16/16 07/16/16 07/16/16 17:00 17:15 17:30 17:45 Temp 97.5 97.5 Pulse 64 64 64 Resp 16 B/P 142/91 140/57 150/61 Pulse Ox 100 95 100 O2 Delivery Mask Simple Mask Room Air Nasal Cannula O2 Flow Rate 10 10 2 07/16/16 07/16/16 07/16/16 07/16/16 17:50 18:00 18:30 18:45 Temp 96.6 96.6 96.6 96.6 Pulse 69 71 72 Resp 19 B/P 146/65 149/54 149/53 Pulse Ox 100 100 100 O2 Delivery Nasal Cannula Nasal Cannula Nasal Cannula Nasal Cannula O2 Flow Rate 2 2 2.0 2.0 07/16/16 07/16/16 07/16/16 07/16/16 19:00 19:15 19:45 20:00 Temp 96.1 96.1 Pulse 68 69 71 Resp 18 18 18 B/P 143/41 146/47 150/38 Pulse Ox 100 100 99 O2 Delivery Nasal Cannula Nasal Cannula Nasal Cannula Nasal Cannula O2 Flow Rate 2.0 2.0 2.0 2 07/16/16 07/16/16 07/16/16 07/16/16 20:15 21:15 22:03 22:15 Pulse 73 67 63 68 Resp 18 18 B/P 146/45 142/47 139/55 142/42 Pulse Ox 99 99 99 O2 Delivery Nasal Cannula Nasal Cannula Nasal Cannula O2 Flow Rate 2.0 2.0 2.0 07/16/16 07/16/16 07/16/16 07/17/16 22:22 22:52 23:22 03:00 Temp 97.5 97.7 97.5 97.7 Pulse 64 73 Resp 18 18 B/P 141/72 131/83 Pulse Ox 99 99 99 100 O2 Delivery Nasal Cannula Nasal Cannula Nasal Cannula Nasal Cannula O2 Flow Rate 2.0 2.0 2.0 2.0 07/17/16 07/17/16 07:00 07:45 Temp 97.8 97.8 Pulse 76 Resp 18 B/P 132/46 Pulse Ox 94 O2 Delivery Room Air Room Air Intake and Output 07/16/16 07/16/16 07/17/16 15:00 23:00 07:00 Intake Total 0 ml 490 ml Output Total 50 ml 0 ml Balance -50 ml 490 ml Nutrition Consultation Dietary Evaluation: Recommendations by RD: Increase Calorie Intake, Protein supplementation Comments: Resume diet and Novasource renal - 475kcal and 21.6g protein/ serving Expected Outcomes/Goals: to meet >75% est nutr needs Malnutrition Findings: Food and Nutrition Intake (Mod: <75% est energy req 7days Weight Status: Morbidly Obese Fluid Accumulation (Non-Severe: Mild depletion SHAZIA COLEMAN MD Jul 17, 2016 08:58
[2016-07-17] MEDS: GABAPENTIN 300 MG CAPSULE. PO SCH ×2 (09:00→20:45)
[2016-07-17] MEDS: DOCUSATE SODIUM 100 MG CAPSULE. PO SCH ×2 (09:00→20:45)
[2016-07-17] MEDS: SENNOSIDES 8.6 MG TABLET PO SCH (09:00)
[2016-07-17] MEDS: POLYETHYLENE GLYCOL 3350 17 GM PACKET. PO SCH (09:00)
[2016-07-17] MEDS: ASPIRIN ENTERIC COATED 81 MG TABLET.DR. PO SCH (09:00)
[2016-07-17] MEDS: busPIRone 5 MG TABLET. PO SCH ×3 (09:00→20:45)
[2016-07-17] MEDS: NYSTATIN TOPICAL POWDER 15GM BOTTLE. TP SCH ×2 (09:00→20:54)
[2016-07-17] MEDS: AMIODARONE HCL 200 MG TABLET. PO SCH ×2 (09:00→20:45)
[2016-07-17] MEDS: HEPARIN PF for SUB-Q USE 5,000 UNIT/0.5 ML VIAL. SQ SCH ×3 (09:00→20:53)
--- NOTE | 2016-07-17 09:27 | PDOC ---
Infectious Disease Note Subjective Subjective Doing well ROS ROS GEN: Denies fevers, chills, sweats HEENT: Denies blurred vision, sore throat CV: Denies chest pain RESP: Denies shortness of air, cough GI: Denies n/v/d NEURO: Denies confusion, dizziness MSK: Denies weakness, joint pain/swelling Vital Sign Vital Signs Vital Signs Date Time Temp Pulse Resp B/P Pulse Ox O2 Delivery O2 Flow Rate FiO2 07/17/16 07:45 Room Air 07/17/16 07:00 97.8 76 18 132/46 94 97.8 07/17/16 03:00 2.0 Physical Exam PHYSICAL EXAM GENERAL: NAD, Alert. in bed. In HD HEENT: PERRL, OC/Op - clear NECK: Supple, no JVD, no LN LUNGS: Clear HEART: S1S2, no gallop, no murmur ABD: Soft, NT, no organomegaly, no rebound, obese EXT: Trace edema, no cyanosis/Boots [employer]: Alert, oriented x 3, no focal neurologic deficit SKIN: No rash IV: Left - clean Labs Lab Laboratory Tests Test 07/16/16 11:05 07/16/16 17:04 07/16/16 18:26 07/16/16 21:27 Glucose (Fingerstick) 207mg/dL (70-99) 236mg/dL (70-99) 227mg/dL (70-99) 167mg/dL (70-99) Test 07/16/16 22:03 07/17/16 06:33 07/17/16 07:20 Glucose (Fingerstick) 159mg/dL (70-99) 206mg/dL (70-99) 216mg/dL (70-99) Objective Assessment MRSA Sepsis. POA - no peripheral stigmata. 07/11 neg so far. TO ? veg on HD cath -Positive BC 07/06, 07/08 S/p Right brachiocephalic fistula 07/16 Infected HDC catheter. MRSA -s/p placement temp [facility] HDC 07/09 -s/p removal [facility] HDC 07/07 A/p Ankle reduction 07/16 Encephalopathy - resolved ESRD Obesity Steroid injection, 07/09 Plan Plan of Care Cont vanc with HD will need another 5 weeks Can f/u in ID office in 2 weeks [phone] Please call with questions ID to sign off EDITH MAI MD Jul 17, 2016 09:27
--- NOTE | 2016-07-17 09:32 | PDOC ---
Provider Note Provider Note VASCULAR BRANDYN avf good thrill, hand ok on catheter dialysis Will need f/u appt in 4 weeks at [facility] with fistula duplex at that time BEBETO LEMUS MD Jul 17, 2016 09:31
--- NOTE | 2016-07-17 09:36 | DISCH ---
DISCHARGE INSTRUCTIONS Follow-Up Follow up with: Dr Payne in 4 weeks, call if unable to keep appt, Vascular lab august 26, BEBETO PAYNE MD Jul 17, 2016 09:36
[2016-07-17] MEDS: INSULIN DETEMIR 300 UNITS/3 ML INSULN.PEN. SQ SCH (10:00)
--- NOTE | 2016-07-17 10:24 | PDOC ---
ORTHO PROGRESS NOTES Subjective Ana tells me that her right arm pain is doing okay. No new complaints at her ankle. She is in dialysis currently. Vitals Vital Signs Date Time Temp Pulse Resp B/P Pulse Ox O2 Delivery O2 Flow Rate FiO2 07/17/16 07:45 Room Air 07/17/16 07:00 97.8 76 18 132/46 94 97.8 07/17/16 03:00 2.0 Labs Laboratory Tests Test 07/15/16 10:57 07/15/16 17:06 07/15/16 20:54 07/16/16 04:20 Glucose (Fingerstick) 204mg/dL (70-99) 342mg/dL (70-99) 252mg/dL (70-99) White Blood Count 9.2x10^3/uL (4.0-11.0) Red Blood Count 3.41x10^6/uL (3.50-5.40) Hemoglobin 9.1g/dL (12.0-15.5) Hematocrit 28.8% (36.0-47.0) Mean Corpuscular Volume 85fL (79-100) Mean Corpuscular Hemoglobin 27pg (25-35) Mean Corpuscular Hemoglobin Concent 32g/dL (31-37) Red Cell Distribution Width 15.9% (11.5-14.5) Platelet Count 199x10^3/uL (140-400) Neutrophils (%) (Auto) 87% (31-73) Lymphocytes (%) (Auto) 7% (24-48) Monocytes (%) (Auto) 5% (0-9) Eosinophils (%) (Auto) 2% (0-3) Basophils (%) (Auto) 0% (0-3) Neutrophils # (Auto) 8.0x10^3uL (1.8-7.7) Lymphocytes # (Auto) 0.6x10^3/uL (1.0-4.8) Monocytes # (Auto) 0.5x10^3/uL (0.0-1.1) Eosinophils # (Auto) 0.1x10^3/uL (0.0-0.7) Basophils # (Auto) 0.0x10^3/uL (0.0-0.2) Sodium Level 138mmol/L (136-145) Potassium Level 3.8mmol/L (3.5-5.1) Chloride Level 99mmol/L (98-107) Carbon Dioxide Level 30mmol/L (21-32) Anion Gap 9 (6-14) Blood Urea Nitrogen 39mg/dL (7-20) Creatinine 4.1mg/dL (0.6-1.0) Estimated GFR (Cockcroft-Gault) 11.1 BUN/Creatinine Ratio 10 (6-20) Glucose Level 193mg/dL (70-99) Calcium Level 7.9mg/dL (8.5-10.1) Total Bilirubin 0.8mg/dL (0.2-1.0) Aspartate Amino Transf (AST/SGOT) 28U/L (15-37) Alanine Aminotransferase (ALT/SGPT) 29U/L (14-59) Alkaline Phosphatase 178U/L (46-116) Total Protein 7.2g/dL (6.4-8.2) Albumin 3.1g/dL (3.4-5.0) Albumin/Globulin Ratio 0.8 (1.0-1.7) Test 07/16/16 07:44 07/16/16 11:05 07/16/16 17:04 07/16/16 18:26 Glucose (Fingerstick) 191mg/dL (70-99) 207mg/dL (70-99) 236mg/dL (70-99) 227mg/dL (70-99) Test 07/16/16 21:27 07/16/16 22:03 07/17/16 06:33 07/17/16 07:20 Glucose (Fingerstick) 167mg/dL (70-99) 159mg/dL (70-99) 206mg/dL (70-99) 216mg/dL (70-99) Laboratory Tests Test 07/16/16 11:05 07/16/16 17:04 07/16/16 18:26 07/16/16 21:27 Glucose (Fingerstick) 207mg/dL (70-99) 236mg/dL (70-99) 227mg/dL (70-99) 167mg/dL (70-99) Test 07/16/16 22:03 07/17/16 06:33 07/17/16 07:20 Glucose (Fingerstick) 159mg/dL (70-99) 206mg/dL (70-99) 216mg/dL (70-99) Notes She is awake and alert and lying in bed. Speech is clear. Examination of lower extremity reveals valgus deformity her ankle. She can wiggle her toes. Sensation unchanged. The medial wound at her left ankle is unchanged in appearance. No fluctuance or drainage. Assessment and Plan Ankle was somewhat reducible. I think this may be amenable to syndesmotic fixation and fusion, at her syndesmosis. I think we can avoid a hindfoot and heel. I would like her current medical issues to be more resolve before proceeding with any implants. I did discuss nonweightbearing and rehabilitation with her and different surgical options as well and she tells me that she is really not willing to dissipate and right now. Ana should follow up with me in clinic after this hospitalization. DIANE CASTILLO II, MD Jul 17, 2016 10:24
--- NOTE | 2016-07-17 10:50 | PDOC ---
PROGRESS NOTES Chief Complaint Chief Complaint cc: Diarrhea, MRSA sepsis ESRD on dialysis Encephalopathy Diabetes mellitus morbid obese, BMI 47, down almost 150lbs from max weight Hyperlipidemia Hypertension KRYSTLE Infected HDC catheter. MRSA -s/p placement temp [facility] HDC 07/09 -s/p removal [facility] HDC 07/07 Encephalopathy ESRD History of Present Illness History of Present Illness ankle injury, SNU pending increase insulin dose, add levemir Vitals Vitals Vital Signs Date Time Temp Pulse Resp B/P Pulse Ox O2 Delivery O2 Flow Rate FiO2 07/17/16 07:45 Room Air 07/17/16 07:00 97.8 76 18 132/46 94 97.8 07/17/16 03:00 2.0 Physical Exam General: Alert, Cooperative Heart: Regular rate, Normal S1, Normal S2 Lungs: Crackles, Other (No chest retractions were present) Abdomen: Soft, No tenderness Extremities: No clubbing, No cyanosis Skin: No rashes, No breakdown Labs LABS Laboratory Tests Test 07/16/16 11:05 07/16/16 17:04 07/16/16 18:26 07/16/16 21:27 Glucose (Fingerstick) 207mg/dL (70-99) 236mg/dL (70-99) 227mg/dL (70-99) 167mg/dL (70-99) Test 07/16/16 22:03 07/17/16 06:33 07/17/16 07:20 Glucose (Fingerstick) 159mg/dL (70-99) 206mg/dL (70-99) 216mg/dL (70-99) Assessment and Plan Assessmemt and Plan Problems Medical Problems: (1) Anemia Status: Acute (2) End stage renal disease Status: Acute (3) Generalized weakness Status: Acute (4) Healthcare-associated pneumonia Status: Acute (5) Sepsis Status: Acute (6) Transient hypotension Status: Acute (7) Urinary tract infection Status: Acute Problems: Comment Review of Relevant I have reviewed the following items dominga (where applicable) has been applied. Labs Laboratory Tests Test 07/15/16 10:57 07/15/16 17:06 07/15/16 20:54 07/16/16 04:20 Glucose (Fingerstick) 204mg/dL (70-99) 342mg/dL (70-99) 252mg/dL (70-99) White Blood Count 9.2x10^3/uL (4.0-11.0) Red Blood Count 3.41x10^6/uL (3.50-5.40) Hemoglobin 9.1g/dL (12.0-15.5) Hematocrit 28.8% (36.0-47.0) Mean Corpuscular Volume 85fL (79-100) Mean Corpuscular Hemoglobin 27pg (25-35) Mean Corpuscular Hemoglobin Concent 32g/dL (31-37) Red Cell Distribution Width 15.9% (11.5-14.5) Platelet Count 199x10^3/uL (140-400) Neutrophils (%) (Auto) 87% (31-73) Lymphocytes (%) (Auto) 7% (24-48) Monocytes (%) (Auto) 5% (0-9) Eosinophils (%) (Auto) 2% (0-3) Basophils (%) (Auto) 0% (0-3) Neutrophils # (Auto) 8.0x10^3uL (1.8-7.7) Lymphocytes # (Auto) 0.6x10^3/uL (1.0-4.8) Monocytes # (Auto) 0.5x10^3/uL (0.0-1.1) Eosinophils # (Auto) 0.1x10^3/uL (0.0-0.7) Basophils # (Auto) 0.0x10^3/uL (0.0-0.2) Sodium Level 138mmol/L (136-145) Potassium Level 3.8mmol/L (3.5-5.1) Chloride Level 99mmol/L (98-107) Carbon Dioxide Level 30mmol/L (21-32) Anion Gap 9 (6-14) Blood Urea Nitrogen 39mg/dL (7-20) Creatinine 4.1mg/dL (0.6-1.0) Estimated GFR (Cockcroft-Gault) 11.1 BUN/Creatinine Ratio 10 (6-20) Glucose Level 193mg/dL (70-99) Calcium Level 7.9mg/dL (8.5-10.1) Total Bilirubin 0.8mg/dL (0.2-1.0) Aspartate Amino Transf (AST/SGOT) 28U/L (15-37) Alanine Aminotransferase (ALT/SGPT) 29U/L (14-59) Alkaline Phosphatase 178U/L (46-116) Total Protein 7.2g/dL (6.4-8.2) Albumin 3.1g/dL (3.4-5.0) Albumin/Globulin Ratio 0.8 (1.0-1.7) Test 07/16/16 07:44 07/16/16 11:05 07/16/16 17:04 07/16/16 18:26 Glucose (Fingerstick) 191mg/dL (70-99) 207mg/dL (70-99) 236mg/dL (70-99) 227mg/dL (70-99) Test 07/16/16 21:27 07/16/16 22:03 07/17/16 06:33 07/17/16 07:20 Glucose (Fingerstick) 167mg/dL (70-99) 159mg/dL (70-99) 206mg/dL (70-99) 216mg/dL (70-99) Laboratory Tests Test 07/16/16 11:05 07/16/16 17:04 07/16/16 18:26 07/16/16 21:27 Glucose (Fingerstick) 207mg/dL (70-99) 236mg/dL (70-99) 227mg/dL (70-99) 167mg/dL (70-99) Test 07/16/16 22:03 07/17/16 06:33 07/17/16 07:20 Glucose (Fingerstick) 159mg/dL (70-99) 206mg/dL (70-99) 216mg/dL (70-99) Microbiology 07/11/16 Blood Culture - Final, Complete NO GROWTH AFTER 5 DAYS 07/08/16 Fecal Leukocyte Stain - Final, Complete 07/06/16 Urine Culture - Final, Complete 07/06/16 Urine Culture Result 1 (NEGRITO) - Final, Complete 07/06/16 Gram Stain - Final, Complete Medications Current Medications Sodium Chloride (Iv Sodium Chloride 0.9% 500ml Bag) 500 ml @ 1,000 mls/hr 1X ONCE IV Last administered on 07/06/16t 13:33; Start 07/06/16 at 12:45; Stop 01/12 at 13:14; Status DC Ondansetron HCl (Zofran) 4 mg 1X ONCE IV Last administered on 07/06/16 13:33 ; Start 07/06/16 at 12:45; Stop 07/06/16 at 12:46; Status DC Vancomycin HCl (Vanco Per Pharmacy) 1 each PRN DAILY PRN MC SEE COMMENTS Last administered on 07/16/16 12:26; Start 07/06/16 at 14:00 Piperacillin Sod/ Tazobactam Sod (Zosyn Per Pharmacy) 1 each PRN DAILY PRN MC SEE COMMENTS; Start 07/06/16 at 14:00; Stop 07/08/16 at 09:55; Status DC Levofloxacin/ Dextrose 1 each 1 each PRN DAILY PRN MC SEE COMMENTS; Start 07/06 at 14:00; Stop 07/08/16 at 09:55; Status DC Vancomycin HCl/ Sodium Chloride (Iv Sodium Chloride 0.9% 500ml Bag) 500 ml @ 250 mls/hr 1X ONCE IV Last administered on 07/06/16 15:03; Start 07/06/16 at 14:15; Stop 07/06/16 at 16:14; Status DC Ondansetron HCl (Zofran) 4 mg PRN Q8HRS PRN IV NAUSEA/VOMITING; Start 07/06/16 at 14:30; Stop 07/07/16 at 14:29; Status DC Morphine Sulfate 2 mg PRN Q2HR PRN IV PAIN; Start 07/06/16 at 14:30; Stop 07/07 at 14:29; Status DC Acetaminophen 650 mg 650 mg PRN Q4HRS PRN PO FEVER Last administered on 05:17; Start 07/06/16 at 14:30; Stop 07/07/16 at 14:29; Status DC Piperacillin Sod/ Tazobactam Sod 2.25 gm/Sodium Chloride 50 ml @ 100 mls/hr Q8HRS IV Last administered on 07/08/16 05:17; Start 07/06/16 at 15:00; Stop at 09:55; Status DC Levofloxacin/ Dextrose (LEVAQUIN 500mg PREMIX) 100 ml @ 100 mls/hr Q48H IV Last administered on 07/06/16 17:36; Start 07/06/16 at 15:00; Stop 07/08/16 at 09:55; Status DC Darbepoetin Naif 60 mcg 60 mcg WEEKLYHS SQ Last administered on 07/13/16 22:41 ; Start 07/06/16 at 21:00; Stop 07/16/16 at 09:19; Status DC Sodium Chloride (Iv Sodium Chloride 0.9% 1000ml Bag) 1,000 ml @ 1,000 mls/hr Q1H PRN IV hypotension; Start 07/06/16 at 23:29; Stop 07/07/16 at 05:28; Status DC Sodium Chloride (Normal Saline Flush) 10 ml 1X PRN PRN IV AP catheter pack; Start 07/06/16 at 23:30; Stop 07/07/16 at 23:29; Status DC Sodium Chloride (Normal Saline Flush) 10 ml 1X PRN PRN IV CARDROOM MANAGER catheter pack; Start 07/06/16 at 23:30; Stop 07/07/16 at 23:29; Status DC Info (PHARMACY MONITORING -- do not chart) 1 each PRN DAILY PRN MC SEE COMMENTS ; Start 07/06/16 at 23:30; Stop 07/09/16 at 21:17; Status DC Info 1 each 1 each PRN DAILY PRN MC SEE COMMENTS; Start 07/06/16 at 23:30; Stop 07/07/16 at 13:09; Status DC Vancomycin HCl/ Sodium Chloride (Iv Sodium Chloride 0.9% 250ml) 250 ml @ 250 mls/hr 1X ONCE IV Last administered on 07/07/16 06:36; Start 07/07/16 at 06: 30; Stop 07/07/16 at 07:29; Status DC Nystatin (Nystop) 1 stephan BID TP Last administered on 07/16/16 22:04; Start 02/12 at 14:00 Oxycodone HCl (Roxicodone) 5 mg PRN Q4HRS PRN PO PAIN; Start 07/07/16 at 18:00 ; Stop 07/07/16 at 18:38; Status DC Acetaminophen (Tylenol) 650 mg PRN Q6HRS PRN PO MILD PAIN / TEMP Last administered on 07/17/16 04:07; Start 07/07/16 at 18:45 Tramadol HCl (Ultram) 50 mg PRN Q6HRS PRN PO MODERATE PAIN Last administered on 07/16/16 22:22; Start 07/07/16 at 18:45 Acetaminophen/ Hydrocodone Bitart (Lortab 5/325) 1 tab PRN Q4HRS PRN PO SEVERE PAIN Last administered on 07/13/16 22:42; Start 07/08/16 at 09:30 Vancomycin HCl 1 each 1X ONCE MC Last administered on 07/09/16 05:31; Start 07/09/16 at 05:00; Stop 07/09/16 at 05:01; Status DC Amiodarone HCl (Cordarone) 200 mg BID PO Last administered on 07/16/16 22:03; Start 07/08/16 at 21:00 Aripiprazole (Abilify) 2.5 mg DAILY PO Last administered on 07/16/16 08:57; Start 07/09/16 at 09:00 Aspirin (Ecotrin) 81 mg DAILY PO Last administered on 07/14/16 09:10; Start at 15:00 Atorvastatin Calcium (Lipitor) 20 mg HS PO Last administered on 07/16/16 22:02 ; Start 07/08/16 at 21:00 Buspirone HCl (Buspar) 5 mg TID PO Last administered on 07/16/16 22:03; Start 07/08/16 at 15:00 Clonidine HCl (Catapres) 0.2 mg DAILY PO Last administered on 07/16/16 08:57; Start 07/09/16 at 09:00 Docusate Sodium (Colace) 100 mg BID PO Last administered on 07/13/16 22:41; Start 07/08/16 at 21:00 Ferrous Sulfate (Feosol) 325 mg DAILY PO Last administered on 07/16/16 18:38; Start 07/09/16 at 09:00 Heparin Sodium (Porcine) 5,000 unit TID SQ Last administered on 07/15/16 17:22 ; Start 07/08/16 at 15:00 Albuterol/ Ipratropium (Duoneb) 3 ml PRN QID PRN NEB SHORTNESS OF BREATH; Start 07/08/16 at 14:45 Labetalol HCl (Normodyne) 10 mg PRN BID PRN IVP HYPERTENSION, SEE COMMENTS; Start 07/08/16 at 15:15 Nystatin (Nystop) 1 stephan BID TP ; Start 07/08/16 at 21:00; Status Cancel Mirtazapine (Remeron) 7.5 mg DAILY PO Last administered on 07/16/16 08:55; Start 07/09/16 at 09:00 Polyethylene Glycol (miraLAX PACKET) 17 gm DAILY PO Last administered on 09:00; Start 07/09/16 at 09:00 Sennosides (Senna) 8.6 mg DAILY PO Last administered on 07/10/16 14:45; Start 07/09/16 at 09:00 Non-Formulary Medication 100 mcg WEEKLY SQ TO TREAT ANEMIA; Start 07/15/16 at 09 :00; Status UNV Diltiazem HCl (Cardizem 24hr Cd) 360 mg DAILY PO Last administered on 08:56; Start 07/09/16 at 09:00 Escitalopram Oxalate (Lexapro) 20 mg DAILY PO Last administered on 07/16/16 08 :55; Start 07/09/16 at 09:00 Vitamin B Complex/ Vitamin C (Zoe-Kiran) 1 tab DAILY PO Last administered on 18:38; Start 07/09/16 at 09:00 Gabapentin (Neurontin) 600 mg BID PO Last administered on 07/16/16 22:02; Start 07/08/16 at 21:00 Non-Formulary Medication 9 mg DAILY PO ; Start 07/09/16 at 09:00; Status UNV Insulin Aspart (Novolog) 10 units TIDAC SQ Last administered on 07/14/16 09:26 ; Start 07/08/16 at 16:30; Stop 07/14/16 at 11:48; Status DC Heparin Sodium (Porcine) (Heparin Sodium) 10,000 unit STK-MED ONCE .ROUTE ; Start 07/09/16 at 11:22; Stop 07/09/16 at 11:23; Status DC Lidocaine/Sodium Bicarbonate 20 ml 20 ml STK-MED ONCE IJ ; Start 07/09/16 at 11: 22; Stop 07/09/16 at 11:23; Status DC Heparin Sodium/ Sodium Chloride 500 ml @ As Directed STK-MED ONCE .ROUTE ; Start 07/09/16 at 11:22; Stop 07/09/16 at 11:23; Status DC Heparin Sodium/ Sodium Chloride 60 unit 1X ONCE IV Last administered on 12:21; Start 07/09/16 at 11:45; Stop 07/09/16 at 11:51; Status DC Heparin Sodium (Porcine) (Heparin Sodium) 2,500 unit 1X ONCE INT CAT Last administered on 07/09/16 12:21; Start 07/09/16 at 11:45; Stop 07/09/16 at 11:51 ; Status DC Lidocaine/Sodium Bicarbonate (Buffered Lidocaine 1%) 3 ml 1X ONCE IJ Last administered on 07/09/16 12:20; Start 07/09/16 at 11:45; Stop 07/09/16 at 11:51 ; Status DC Methylprednisolone Acetate (Depo-Medrol 40mg Vial) 40 mg 1X ONCE IM ; Start at 14:45; Stop 07/09/16 at 14:59; Status DC Bupivacaine HCl 10 ml 10 ml 1X ONCE IJ ; Start 07/09/16 at 14:45; Stop at 14:59; Status DC Sodium Chloride 1,000 ml @ 1,000 mls/hr Q1H PRN IV hypotension; Start 07/09/16 at 15:15; Stop 07/09/16 at 21:14; Status DC Albumin Human (Albuminar) 200 ml @ 200 mls/hr 1X PRN PRN IV Hypotension; Start 07/09/16 at 15:15; Stop 07/09/16 at 21:14; Status DC Acetaminophen (Tylenol) 500 mg 1X PRN PRN PO MILD PAIN / TEMP; Start 07/09/16 at 15:15; Stop 07/10/16 at 15:14; Status DC Diphenhydramine HCl (Benadryl) 25 mg 1X PRN PRN IV ITCHING; Start 07/09/16 at 15:15; Stop 07/10/16 at 15:14; Status DC Diphenhydramine HCl (Benadryl) 25 mg 1X PRN PRN IV ITCHING; Start 07/09/16 at 15:15; Stop 07/10/16 at 15:14; Status DC Labetalol HCl (Normodyne) 10 mg PRN Q1HR PRN IVP SBP > 180; Start 07/09/16 at 15:15; Stop 07/10/16 at 15:14; Status DC Clonidine HCl (Catapres) 0.1 mg 1X PRN PRN PO SBP > 180; Start 07/09/16 at 15: 15; Stop 07/10/16 at 15:14; Status DC Info (PHARMACY MONITORING -- do not chart) 1 each PRN DAILY PRN MC SEE COMMENTS ; Start 07/09/16 at 15:15; Status Cancel Vancomycin HCl 1 each 1 each 1X ONCE MC ; Start 07/11/16 at 06:00; Stop at 06:01; Status DC Sodium Chloride (Iv Sodium Chloride 0.9% 1000ml Bag) 1,000 ml @ 1,000 mls/hr Q1H PRN IV hypotension; Start 07/10/16 at 10:45; Stop 07/10/16 at 16:44; Status DC Sodium Chloride (Normal Saline Flush) 10 ml 1X PRN PRN IV AP catheter pack; Start 07/10/16 at 10:45; Stop 07/11/16 at 10:44; Status DC Sodium Chloride (Normal Saline Flush) 10 ml 1X PRN PRN IV CARDROOM MANAGER catheter pack; Start 07/10/16 at 10:45; Stop 07/11/16 at 10:44; Status DC Info (PHARMACY MONITORING -- do not chart) 1 each PRN DAILY PRN MC SEE COMMENTS ; Start 07/10/16 at 10:45; Stop 07/10/16 at 14:25; Status DC Info 1 each 1 each PRN DAILY PRN MC SEE COMMENTS; Start 07/10/16 at 10:45; Status Cancel Lactated Ringer's 1,000 ml @ 50 mls/hr Q20H IV ; Start 07/13/16 at 07:00; Stop 07/13/16 at 18:59; Status Cancel Vancomycin HCl 500 mg/Sodium Chloride 100 ml @ 100 mls/hr 1X ONCE IV Last administered on 07/11/16t 18:00; Start 07/11/16 at 18:00; Stop 07/11/16 at 18:59 ; Status DC Sodium Chloride 1,000 ml @ 1,000 mls/hr Q1H PRN IV hypotension; Start 07/13/16 at 08:26; Stop 07/13/16 at 14:25; Status DC Albumin Human (Albuminar) 200 ml @ 200 mls/hr 1X PRN PRN IV Hypotension; Start 07/13/16 at 08:30; Stop 07/13/16 at 14:29; Status DC Midodrine (Proamatine) 5 mg 1X ONCE PO ; Start 07/13/16 at 08:30; Stop at 08:35; Status DC Acetaminophen (Tylenol) 500 mg 1X PRN PRN PO MILD PAIN / TEMP; Start 07/13/16 at 08:30; Stop 07/14/16 at 08:29; Status DC Diphenhydramine HCl (Benadryl) 25 mg 1X PRN PRN IV ITCHING; Start 07/13/16 at 08:30; Stop 07/14/16 at 08:29; Status DC Diphenhydramine HCl (Benadryl) 25 mg 1X PRN PRN IV ITCHING; Start 07/13/16 at 08:30; Stop 07/14/16 at 08:29; Status DC Labetalol HCl (Normodyne) 10 mg PRN Q1HR PRN IVP SBP > 180; Start 07/13/16 at 08:30; Stop 07/14/16 at 08:29; Status DC Clonidine HCl 0.1 mg 0.1 mg 1X PRN PRN PO SBP > 180; Start 07/13/16 at 08:30; Stop 07/14/16 at 08:29; Status DC Sodium Chloride (Iv Sodium Chloride 0.9% 1000ml Bag) 1,000 ml @ 400 mls/hr Q2H30M PRN IV PATENCY; Start 07/13/16 at 08:26; Stop 07/13/16 at 20:25; Status DC Info 1 each 1 each PRN DAILY PRN MC SEE COMMENTS; Start 07/13/16 at 08:30 Sodium Chloride 1,000 ml @ 0 mls/hr Q0M IV Last administered on 07/13/16t 12: 39; Start 07/13/16 at 12:15 Propofol (Diprivan) 40 ml @ As Directed STK-MED ONCE IV ; Start 07/13/16 at 12: 27; Stop 07/13/16 at 12:28; Status DC Lidocaine HCl (Xylocaine-Mpf 1% Vial) 5 ml STK-MED ONCE .ROUTE ; Start 07/13/16 at 12:27; Stop 07/13/16 at 12:28; Status DC Lidocaine HCl (Viscous Lidocaine) 15 ml STK-MED ONCE .ROUTE ; Start 07/13/16 at 12:28; Stop 07/13/16 at 12:29; Status DC Benzocaine (Hurricaine One) 1 spray STK-MED ONCE .ROUTE ; Start 07/13/16 at 12: 28; Stop 07/13/16 at 12:29; Status DC Lidocaine HCl 30 stephan 30 stephan STK-MED ONCE TP ; Start 07/13/16 at 12:28; Stop at 12:29; Status DC Vancomycin HCl 500 mg/Sodium Chloride 100 ml @ 100 mls/hr 1X ONCE IV Last administered on 07/13/16 16:00; Start 07/13/16 at 16:00; Stop 07/13/16 at 16:59 ; Status DC Albumin Human (Albuminar) 100 ml @ 100 mls/hr TID IV Last administered on 07/15 21:51; Start 07/14/16 at 10:00; Stop 07/15/16 at 21:59; Status DC Calcium Acetate (Phoslo) 1,334 mg TIDWMEALS PO Last administered on 07/16/16 18:38; Start 07/14/16 at 12:00 Insulin Aspart (Novolog) 18 units TIDAC SQ Last administered on 07/15/16 08:12 ; Start 07/14/16 at 12:10; Stop 07/15/16 at 10:16; Status DC Insulin Detemir (Levemir) 20 units DAILY10 SQ Last administered on 07/14/16 12 :22; Start 07/14/16 at 12:00; Stop 07/15/16 at 10:15; Status DC Loperamide HCl (Imodium) 2 mg PRN Q4HRS PRN PO DIARRHEA Last administered on 17:08; Start 07/14/16 at 16:30 Vancomycin HCl 1 each 1X ONCE MC Last administered on 07/15/16 06:00; Start 07/15/16 at 06:00; Stop 07/15/16 at 06:01; Status DC Fentanyl Citrate (Fentanyl 2ml Vial) 25 mcg PRN Q5MIN PRN IV MILD PAIN; Start 07/15/16 at 07:00; Stop 07/16/16 at 06:59; Status DC Fentanyl Citrate (Fentanyl 2ml Vial) 50 mcg PRN Q5MIN PRN IV MODERATE PAIN; Start 07/15/16 at 07:00; Stop 07/16/16 at 06:59; Status DC Morphine Sulfate 1 mg PRN Q10MIN PRN IV SEVERE PAIN; Start 07/15/16 at 07:00; Stop 07/16/16 at 06:59; Status DC Lidocaine HCl 2 ml PRN 1X PRN ID PRIOR TO IV START; Start 07/15/16 at 07:00; Stop 07/16/16 at 06:59; Status DC Hydromorphone HCl (Dilaudid) 0.5 mg PRN Q10MIN PRN IV SEV PAIN, Second choice; Start 07/15/16 at 07:00; Stop 07/16/16 at 06:59; Status DC Prochlorperazine Edisylate 5 mg 5 mg PACU PRN PRN IV NAUSEA, MRX1; Start at 07:00; Stop 07/16/16 at 06:59; Status DC Sodium Chloride 1,000 ml @ 0 mls/hr Q0M IV Last administered on 07/16/16 12: 51; Start 07/15/16 at 13:00 Vancomycin HCl/ Sodium Chloride (Iv Sodium Chloride 0.9% 100ml) 100 ml @ 100 mls/hr QMWF IV Last administered on 07/15/16t 16:14; Start 07/15/16 at 16:00 Lidocaine HCl 20 ml STK-MED ONCE .ROUTE ; Start 07/15/16 at 07:14; Stop at 07:15; Status DC Cellulose 1 each STK-MED ONCE .ROUTE ; Start 07/15/16 at 07:16; Stop 07/15/16 at 07:17; Status DC Papaverine HCl 60 mg 60 mg STK-MED ONCE .ROUTE ; Start 07/15/16 at 07:16; Stop 07/15/16 at 07:17; Status DC Heparin Sodium (Porcine) 5000 unit/Sodium Chloride 505 ml @ 505 mls/hr 1X PERIOP ONCE IRR ; Start 07/15/16 at 09:00; Stop 07/15/16 at 09:59; Status DC Cefazolin Sodium/ Sodium Chloride (Ancef/Iv Sodium Chloride 0.9% 500ml Bag) 500 ml @ 500 mls/hr 1X PERIOP ONCE IRR ; Start 07/15/16 at 09:00; Stop 07/15/16 at 09:59; Status DC Insulin Detemir (Levemir) 40 units DAILY10 SQ ; Start 07/16/16 at 10:00 Insulin Aspart 26 units 26 units TIDAC SQ Last administered on 07/16/16t 19:23 ; Start 07/15/16 at 11:30 Alteplase, Recombinant/ Sodium Chloride (Activase/Iv Sodium Chloride 0.9% 250ml ) 100 ml @ 10 mls/hr 1X ONCE IV Last administered on 07/15/16 11:35; Start 07/15/16 at 11:30; Stop 07/15/16 at 21:29; Status DC Fentanyl Citrate (Fentanyl 2ml Vial) 25 mcg PRN Q5MIN PRN IV MILD PAIN; Start 07/16/16 at 07:00; Stop 07/17/16 at 06:59; Status DC Fentanyl Citrate (Fentanyl 2ml Vial) 50 mcg PRN Q5MIN PRN IV MODERATE PAIN; Start 07/16/16 at 07:00; Stop 07/17/16 at 06:59; Status DC Morphine Sulfate 1 mg 1 mg PRN Q10MIN PRN IV SEVERE PAIN; Start 07/16/16 at 07: 00; Stop 07/17/16 at 06:59; Status DC Lactated Ringer's (Iv Lactated Ringers) 1,000 ml @ 0 mls/hr Q0M IV ; Start at 07:00; Stop 07/16/16 at 18:59; Status DC Lidocaine HCl 2 ml PRN 1X PRN ID PRIOR TO IV START; Start 07/16/16 at 07:00; Stop 07/17/16 at 06:59; Status DC Hydromorphone HCl (Dilaudid) 0.5 mg PRN Q10MIN PRN IV SEV PAIN, Second choice; Start 07/16/16 at 07:00; Stop 07/17/16 at 06:59; Status DC Prochlorperazine Edisylate 5 mg 5 mg PACU PRN PRN IV NAUSEA, MRX1; Start at 07:00; Stop 07/17/16 at 06:59; Status DC Cefazolin Sodium 1 gm/Sodium Chloride 500 ml @ 500 mls/hr 1X PERIOP ONCE IRR Last administered on 07/16/16 14:37; Start 07/16/16 at 06:00; Stop 07/16/16 at 06:59; Status DC Heparin Sodium (Porcine)/Sodium Chloride (Heparin Sodium/ Iv Sodium Chloride 0.9 % 500ml Bag) 505 ml @ 505 mls/hr 1X PERIOP ONCE IRR Last administered on 07/16 14:37; Start 07/16/16 at 06:00; Stop 07/16/16 at 06:59; Status DC Darbepoetin Naif 100 mcg 100 mcg WEEKLYHS SQ ; Start 07/20/16 at 21:00 Propofol (Diprivan) 20 ml @ As Directed STK-MED ONCE IV ; Start 07/16/16 at 13: 07; Stop 07/16/16 at 13:08; Status DC Ondansetron HCl (Zofran) 4 mg STK-MED ONCE .ROUTE ; Start 07/16/16 at 13:07; Stop 07/16/16 at 13:08; Status DC Famotidine (Pepcid) 20 mg STK-MED ONCE .ROUTE ; Start 07/16/16 at 13:07; Stop at 13:08; Status DC Lidocaine HCl (Lidocaine HCl 2% Abboject) 100 mg STK-MED ONCE .ROUTE ; Start at 13:08; Stop 07/16/16 at 13:09; Status DC Fentanyl Citrate (Fentanyl 2ml Vial) 100 mcg STK-MED ONCE .ROUTE ; Start at 13:08; Stop 07/16/16 at 13:09; Status DC Rocuronium [place] (Zemuron) 50 mg STK-MED ONCE .ROUTE ; Start 07/16/16 at 13:08 ; Stop 07/16/16 at 13:09; Status DC Cellulose 1 each STK-MED ONCE .ROUTE Last administered on 07/16/16 16:28; Start 07/16/16 at 14:05; Stop 07/16/16 at 14:06; Status DC Lidocaine HCl 20 ml 20 ml STK-MED ONCE .ROUTE Last administered on 07/16/16 14 :37; Start 07/16/16 at 14:06; Stop 07/16/16 at 14:07; Status DC Propofol (Diprivan) 200 ml @ As Directed STK-MED ONCE IV ; Start 07/16/16 at 14 :15; Stop 07/16/16 at 14:16; Status DC Midazolam HCl (Versed) 2 mg STK-MED ONCE .ROUTE ; Start 07/16/16 at 14:16; Stop 07/16/16 at 14:17; Status DC Ketamine HCl 500 mg STK-MED ONCE .ROUTE ; Start 07/16/16 at 14:17; Stop at 14:18; Status DC Heparin Sodium (Porcine) (Heparin Sodium) 10,000 unit STK-MED ONCE .ROUTE ; Start 07/16/16 at 15:16; Stop 07/16/16 at 15:17; Status DC Protamine Sulfate 50 mg STK-MED ONCE IV ; Start 07/16/16 at 16:42; Stop at 16:43; Status DC Insulin Aspart (Novolog Vial) 6 unit 1X PACU ONCE SQ Last administered on 07/16t 17:23; Start 07/16/16 at 17:30; Stop 07/16/16 at 17:31; Status DC Insulin Aspart 100 unit 100 unit STK-MED ONCE SQ ; Start 07/16/16 at 17:19; Stop 07/16/16 at 17:20; Status DC Sodium Chloride (Iv Sodium Chloride 0.9% 1000ml Bag) 1,000 ml @ 1,000 mls/hr Q1H PRN IV hypotension; Start 07/17/16 at 08:34; Stop 07/17/16 at 14:33 Sodium Chloride (Normal Saline Flush) 10 ml 1X PRN PRN IV AP catheter pack; Start 07/17/16 at 08:45; Stop 07/18/16 at 08:44 Sodium Chloride 10 ml 10 ml 1X PRN PRN IV CARDROOM MANAGER catheter pack; Start 07/17/16 at 08:45; Stop 07/18/16 at 08:44 Sodium Chloride (Iv Sodium Chloride 0.9% 1000ml Bag) 1,000 ml @ 400 mls/hr Q2H30M PRN IV PATENCY; Start 07/17/16 at 08:34; Stop 07/17/16 at 20:33 Info (PHARMACY MONITORING -- do not chart) 1 each PRN DAILY PRN MC SEE COMMENTS ; Start 07/17/16 at 08:45 Active Scripts Active Reported Amiodarone Hcl 200 Mg Tablet 200 Mg PO BID Aspir 81 (Aspirin) 81 Mg Tablet.dr 81 Mg PO DAILY Atorvastatin Calcium 20 Mg Tablet 20 Mg PO HS Cardizem Cd (Diltiazem Hcl) 360 Mg Cap.er.24h 360 Mg PO DAILY Docusate Sodium 100 Mg Capsule 100 Mg PO BID Melatonin 3 Mg Tablet 9 Mg PO DAILY Polyethylene Glycol 3350 17 Gm Powd.pack 17 Gm PO DAILY Senna (Sennosides) 8.6 Mg Tablet 8.6 Mg PO DAILY Clonidine Hcl 0.2 Mg Tablet 0.2 Mg PO DAILY Micro-Guard (Miconazole Nitrate) 85 Gm Powder 85 Gm TP BID Humalog (Insulin Lispro) 100 Unit/1 Ml Vial 100 Unit SQ Buspirone Hcl 5 Mg Tablet 5 Mg PO TID Aranesp Vial (Darbepoetin Naif In Polysorbat) 100 Mcg/1 Ml Vial 100 Mcg SQ WEEKLY Nephron Fa Tablet (Fe Fumarate/Dinorah/Fa/Bcomp&C) 1 Each Tablet 1 Each PO DAILY Ferrous Sulfate 325 Mg Tablet 1 Tab PO DAILY Escitalopram Oxalate 20 Mg Tablet 20 Mg PO DAILY Duoneb 0.5-3(2.5) Mg/3 Ml (Albuterol/Ipratropium) 3 Ml Ampul.neb 3 Ml NEB QID PRN Gabapentin 600 Mg Tablet 600 Mg PO BID Mirtazapine 7.5 Mg Tablet 7.5 Mg PO DAILY Abilify (Aripiprazole) 2 Mg Tablet 2.5 Mg PO DAILY Labetalol Hcl 5 Mg/1 Ml Vial 10 Mg IV PRN Heparin Sod 5,000 Unit/ 0.5 Ml (Heparin Sodium,Porcine/Pf) 5,000 Unit/0.5 Ml Vial 5,000 Unit IJ TID Novolin N (Nph, Human Insulin Isophane) 100 Unit/1 Ml Vial 100 Unit SQ PRN Vitals/I & O Vital Sign - Last 24 Hours 07/16/16 07/16/16 07/16/16 07/16/16 11:00 12:48 17:00 17:00 Temp 97.9 97.0 97.3 97.9 97.0 97.3 Pulse 68 66 64 Resp 19 15 14 B/P 141/53 168/74 149/68 Pulse Ox 95 94 100 O2 Delivery Nasal Cannula Room Air Simple Mask Mask O2 Flow Rate 2.0 10 10 07/16/16 07/16/16 07/16/16 07/16/16 17:15 17:30 17:45 17:50 Temp 97.5 97.5 Pulse 64 64 64 Resp 16 16 16 B/P 142/91 140/57 150/61 Pulse Ox 100 95 100 O2 Delivery Simple Mask Room Air Nasal Cannula Nasal Cannula O2 Flow Rate 10 2 2 07/16/16 07/16/16 07/16/16 07/16/16 18:00 18:30 18:45 19:00 Temp 96.6 96.6 96.1 96.6 96.6 96.1 Pulse 69 71 72 68 Resp 16 19 19 18 B/P 146/65 149/54 149/53 143/41 Pulse Ox 100 100 100 100 O2 Delivery Nasal Cannula Nasal Cannula Nasal Cannula Nasal Cannula O2 Flow Rate 2 2.0 2.0 2.0 07/16/16 07/16/16 07/16/16 07/16/16 19:15 19:45 20:00 20:15 Pulse 69 71 73 Resp 18 18 18 B/P 146/47 150/38 146/45 Pulse Ox 100 99 99 O2 Delivery Nasal Cannula Nasal Cannula Nasal Cannula Nasal Cannula O2 Flow Rate 2.0 2.0 2 2.0 07/16/16 07/16/16 07/16/16 07/16/16 21:15 22:03 22:15 22:22 Pulse 67 63 68 Resp 18 18 20 B/P 142/47 139/55 142/42 Pulse Ox 99 99 99 O2 Delivery Nasal Cannula Nasal Cannula Nasal Cannula O2 Flow Rate 2.0 2.0 2.0 07/16/16 07/16/16 07/17/16 07/17/16 22:52 23:22 03:00 07:00 Temp 97.5 97.7 97.8 97.5 97.7 97.8 Pulse 64 73 76 Resp 18 18 18 18 B/P 141/72 131/83 132/46 Pulse Ox 99 99 100 94 O2 Delivery Nasal Cannula Nasal Cannula Nasal Cannula Room Air O2 Flow Rate 2.0 2.0 2.0 07/17/16 07:45 O2 Delivery Room Air Intake and Output 07/16/16 07/16/16 07/17/16 15:00 23:00 07:00 Intake Total 0 ml 490 ml Output Total 50 ml 0 ml Balance -50 ml 490 ml Nutrition Consultation Dietary Evaluation: Recommendations by RD: Increase Calorie Intake, Protein supplementation Comments: Resume diet and Novasource renal - 475kcal and 21.6g protein/ serving Expected Outcomes/Goals: to meet >75% est nutr needs Malnutrition Findings: Food and Nutrition Intake (Mod: <75% est energy req 7days Weight Status: Morbidly Obese Fluid Accumulation (Non-Severe: Mild depletion TOMASZ ARTEAGA MD Jul 17, 2016 10:50
--- NOTE | 2016-07-17 11:12 | PDOC ---
Dialysis Progress Note Dialysis Note Dialysis Note Seen on Hemodialysis, tolerating treatment Okay Vitals on Hemodialysis: 164/60 70 afeb afeb General Appearance: Awake: Alert Oriented x 3 Neck: No JVD or JVP Chest: CTA Adama Heart: S1 S2 Abdomen - Soft NTND Extremities - + Edema ESRD : Dialysis as below F 180 NR 3.5 Hrs (or 4hrs if pt agrees - which is her OP time) 3 K 2.5 Ca 140 Na 35 HC03 Qb 350 + Qd 500+ Heparin 0 Units Uf 2 Kgs or to dry weight as tolerated May give 25-50 gms of 25% Albumin if needed to maintain Hemodynamic stability Treatment plan reviewed and discussed with woolen tester Vitals Vital Signs Vital Signs Date Time Temp Pulse Resp B/P Pulse Ox O2 Delivery O2 Flow Rate FiO2 07/17/16 07:45 Room Air 07/17/16 07:00 97.8 76 18 132/46 94 97.8 07/17/16 03:00 2.0 Labs Last Labs Laboratory Tests Test 07/15/16 17:06 07/15/16 20:54 07/16/16 04:20 07/16/16 07:44 Glucose (Fingerstick) 342mg/dL (70-99) 252mg/dL (70-99) 191mg/dL (70-99) White Blood Count 9.2x10^3/uL (4.0-11.0) Red Blood Count 3.41x10^6/uL (3.50-5.40) Hemoglobin 9.1g/dL (12.0-15.5) Hematocrit 28.8% (36.0-47.0) Mean Corpuscular Volume 85fL (79-100) Mean Corpuscular Hemoglobin 27pg (25-35) Mean Corpuscular Hemoglobin Concent 32g/dL (31-37) Red Cell Distribution Width 15.9% (11.5-14.5) Platelet Count 199x10^3/uL (140-400) Neutrophils (%) (Auto) 87% (31-73) Lymphocytes (%) (Auto) 7% (24-48) Monocytes (%) (Auto) 5% (0-9) Eosinophils (%) (Auto) 2% (0-3) Basophils (%) (Auto) 0% (0-3) Neutrophils # (Auto) 8.0x10^3uL (1.8-7.7) Lymphocytes # (Auto) 0.6x10^3/uL (1.0-4.8) Monocytes # (Auto) 0.5x10^3/uL (0.0-1.1) Eosinophils # (Auto) 0.1x10^3/uL (0.0-0.7) Basophils # (Auto) 0.0x10^3/uL (0.0-0.2) Sodium Level 138mmol/L (136-145) Potassium Level 3.8mmol/L (3.5-5.1) Chloride Level 99mmol/L (98-107) Carbon Dioxide Level 30mmol/L (21-32) Anion Gap 9 (6-14) Blood Urea Nitrogen 39mg/dL (7-20) Creatinine 4.1mg/dL (0.6-1.0) Estimated GFR (Cockcroft-Gault) 11.1 BUN/Creatinine Ratio 10 (6-20) Glucose Level 193mg/dL (70-99) Calcium Level 7.9mg/dL (8.5-10.1) Total Bilirubin 0.8mg/dL (0.2-1.0) Aspartate Amino Transf (AST/SGOT) 28U/L (15-37) Alanine Aminotransferase (ALT/SGPT) 29U/L (14-59) Alkaline Phosphatase 178U/L (46-116) Total Protein 7.2g/dL (6.4-8.2) Albumin 3.1g/dL (3.4-5.0) Albumin/Globulin Ratio 0.8 (1.0-1.7) Test 07/16/16 11:05 07/16/16 17:04 07/16/16 18:26 07/16/16 21:27 Glucose (Fingerstick) 207mg/dL (70-99) 236mg/dL (70-99) 227mg/dL (70-99) 167mg/dL (70-99) Test 07/16/16 22:03 07/17/16 06:33 07/17/16 07:20 Glucose (Fingerstick) 159mg/dL (70-99) 206mg/dL (70-99) 216mg/dL (70-99) Laboratory Tests Test 07/16/16 17:04 07/16/16 18:26 07/16/16 21:27 07/16/16 22:03 Glucose (Fingerstick) 236mg/dL (70-99) 227mg/dL (70-99) 167mg/dL (70-99) 159mg/dL (70-99) Test 07/17/16 06:33 07/17/16 07:20 Glucose (Fingerstick) 206mg/dL (70-99) 216mg/dL (70-99) Assessment Assessment Problems Medical Problems: (1) Anemia Status: Acute (2) End stage renal disease Status: Acute (3) Generalized weakness Status: Acute (4) Healthcare-associated pneumonia Status: Acute (5) Sepsis Status: Acute (6) Transient hypotension Status: Acute (7) Urinary tract infection Status: Acute Problems: Plan Plan of Care Problems Medical Problems: (1) Anemia Status: Acute (2) End stage renal disease Status: Acute (3) Generalized weakness Status: Acute (4) Healthcare-associated pneumonia Status: Acute (5) Sepsis Status: Acute (6) Transient hypotension Status: Acute (7) Urinary tract infection Status: Acute MESHA SIEGEL MD Jul 17, 2016 11:12
--- NOTE | 2016-07-17 12:09 | PDOC ---
PULMONARY PROGRESS NOTES Subjective not more soa Vitals Vital Signs Date Time Temp Pulse Resp B/P Pulse Ox O2 Delivery O2 Flow Rate FiO2 07/17/16 07:45 Room Air 07/17/16 07:00 97.8 76 18 132/46 94 97.8 07/17/16 03:00 2.0 ROS: No Nausea, No Chest Pain, No Abdominal Pain, No Increase Cough General: Alert, No acute distress Lungs: Crackles, Other (No chest retractions were present) Cardiovascular: S1, S2 Abdomen: Soft, Non-tender Neuro Exam: Alert Extremities: Other Skin: Warm Labs Laboratory Tests Test 07/15/16 17:06 07/15/16 20:54 07/16/16 04:20 07/16/16 07:44 Glucose (Fingerstick) 342mg/dL (70-99) 252mg/dL (70-99) 191mg/dL (70-99) White Blood Count 9.2x10^3/uL (4.0-11.0) Red Blood Count 3.41x10^6/uL (3.50-5.40) Hemoglobin 9.1g/dL (12.0-15.5) Hematocrit 28.8% (36.0-47.0) Mean Corpuscular Volume 85fL (79-100) Mean Corpuscular Hemoglobin 27pg (25-35) Mean Corpuscular Hemoglobin Concent 32g/dL (31-37) Red Cell Distribution Width 15.9% (11.5-14.5) Platelet Count 199x10^3/uL (140-400) Neutrophils (%) (Auto) 87% (31-73) Lymphocytes (%) (Auto) 7% (24-48) Monocytes (%) (Auto) 5% (0-9) Eosinophils (%) (Auto) 2% (0-3) Basophils (%) (Auto) 0% (0-3) Neutrophils # (Auto) 8.0x10^3uL (1.8-7.7) Lymphocytes # (Auto) 0.6x10^3/uL (1.0-4.8) Monocytes # (Auto) 0.5x10^3/uL (0.0-1.1) Eosinophils # (Auto) 0.1x10^3/uL (0.0-0.7) Basophils # (Auto) 0.0x10^3/uL (0.0-0.2) Sodium Level 138mmol/L (136-145) Potassium Level 3.8mmol/L (3.5-5.1) Chloride Level 99mmol/L (98-107) Carbon Dioxide Level 30mmol/L (21-32) Anion Gap 9 (6-14) Blood Urea Nitrogen 39mg/dL (7-20) Creatinine 4.1mg/dL (0.6-1.0) Estimated GFR (Cockcroft-Gault) 11.1 BUN/Creatinine Ratio 10 (6-20) Glucose Level 193mg/dL (70-99) Calcium Level 7.9mg/dL (8.5-10.1) Total Bilirubin 0.8mg/dL (0.2-1.0) Aspartate Amino Transf (AST/SGOT) 28U/L (15-37) Alanine Aminotransferase (ALT/SGPT) 29U/L (14-59) Alkaline Phosphatase 178U/L (46-116) Total Protein 7.2g/dL (6.4-8.2) Albumin 3.1g/dL (3.4-5.0) Albumin/Globulin Ratio 0.8 (1.0-1.7) Test 07/16/16 11:05 07/16/16 17:04 07/16/16 18:26 07/16/16 21:27 Glucose (Fingerstick) 207mg/dL (70-99) 236mg/dL (70-99) 227mg/dL (70-99) 167mg/dL (70-99) Test 07/16/16 22:03 07/17/16 06:33 07/17/16 07:20 07/17/16 11:21 Glucose (Fingerstick) 159mg/dL (70-99) 206mg/dL (70-99) 216mg/dL (70-99) 131mg/dL (70-99) Laboratory Tests Test 07/16/16 17:04 07/16/16 18:26 07/16/16 21:27 07/16/16 22:03 Glucose (Fingerstick) 236mg/dL (70-99) 227mg/dL (70-99) 167mg/dL (70-99) 159mg/dL (70-99) Test 07/17/16 06:33 07/17/16 07:20 07/17/16 11:21 Glucose (Fingerstick) 206mg/dL (70-99) 216mg/dL (70-99) 131mg/dL (70-99) Medications Active Scripts Medications Dose Route/Sig Days Date Category Amiodarone Hcl 200 Mg Tablet 200 Mg PO BID 08/28/15 Reported Aspir 81 (Aspirin) 81 Mg Tablet.dr 81 Mg PO DAILY 08/28/15 Reported Atorvastatin Calcium 20 Mg Tablet 20 Mg PO HS 08/28/15 Reported Cardizem Cd (Diltiazem Hcl) 360 Mg Cap.er.24h 360 Mg PO DAILY 08/28/15 Reported Docusate Sodium 100 Mg Capsule 100 Mg PO BID 08/28/15 Reported Melatonin 3 Mg Tablet 9 Mg PO DAILY 08/28/15 Reported Polyethylene Glycol 3350 17 Gm Powd.pack 17 Gm PO DAILY 08/28/15 Reported Senna (Sennosides) 8.6 Mg Tablet 8.6 Mg PO DAILY 08/28/15 Reported Clonidine Hcl 0.2 Mg Tablet 0.2 Mg PO DAILY 08/28/15 Reported Micro-Guard (Miconazole Nitrate) 85 Gm Powder 85 Gm TP BID 08/28/15 Reported Humalog (Insulin Lispro) 100 Unit/1 Ml Vial 100 Unit SQ 08/28/15 Reported Buspirone Hcl 5 Mg Tablet 5 Mg PO TID 08/28/15 Reported Aranesp Vial (Darbepoetin Naif In Polysorbat) 100 Mcg/1 Ml Vial 100 Mcg SQ WEEKLY 08/28/15 Reported Nephron Fa Tablet (Fe Fumarate/Dinorah/Fa/Bcomp&C) 1 Each Tablet 1 Each PO DAILY 08/28/15 Reported Ferrous Sulfate 325 Mg Tablet 1 Tab PO DAILY 08/28/15 Reported Escitalopram Oxalate 20 Mg Tablet 20 Mg PO DAILY 08/28/15 Reported Duoneb 0.5-3(2.5) Mg/3 Ml (Albuterol/Ipratropium) 3 Ml Ampul.neb 3 Ml NEB QID PRN 08/28/15 Reported Gabapentin 600 Mg Tablet 600 Mg PO BID 08/28/15 Reported Mirtazapine 7.5 Mg Tablet 7.5 Mg PO DAILY 08/28/15 Reported Abilify (Aripiprazole) 2 Mg Tablet 2.5 Mg PO DAILY 08/28/15 Reported Labetalol Hcl 5 Mg/1 Ml Vial 10 Mg IV PRN 08/28/15 Reported Heparin Sod 5,000 Unit/ 0.5 Ml (Heparin Sodium,Porcine/Pf) 5,000 Unit/0.5 Ml Vial 5,000 Unit IJ TID 08/28/15 Reported Novolin N (Nph, Human Insulin Isophane) 100 Unit/1 Ml Vial 100 Unit SQ PRN 05/31/13 Reported Impression . 1. Acute respiratory failure, suspect sepsis. 2. Sepsis secondary to urinary tract infection. 3. Possible obstructive sleep apnea. 4. End-stage renal disease, noncompliant. 5. Type 2 diabetes. 6. Depression. 7. Hyperlipidemia. 8 .Bacteremia Plan . continue the same .resp status is compensated TO with possible thrombus related to catheter 1. Continue antibiotics per ID 2. outpatient polysomnogram 3. AV fistula per vascular. 4. follow nephro input, 5. follow Gi input resp status is compensated. will see ЕКАТЕРИНА Nava MD Jul 17, 2016 12:09
[2016-07-17 12:22] LABS: INR 1.4 (0.8-1.1)
[2016-07-17] MEDS: VANCOMYCIN PER PHARMACY MC PRN (13:35)
[2016-07-17] MEDS: VANCOMYCIN 500 MG in IV NORMAL SALINE 100ML 100 ML IV SCH (15:32)
[2016-07-17] MEDS ORDERED: LIDOCAINE 1%/EPI 1:100,000 20 ML VIAL. ONE (15:58)
[2016-07-17] MEDS ORDERED: HEPARIN for IV BOLUS 10,000 UNIT/10 ML VIAL. ONE (15:58)
[2016-07-17] MEDS ORDERED: LORAZEPAM 2 MG/ML VIAL. IV ONE (16:00)
[2016-07-17] MEDS ORDERED: fentaNYL PF VIAL 250 MCG/5 ML VIAL ONE (16:13)
[2016-07-17] MEDS ORDERED: MIDAZOLAM HCL/PF 5 MG/5 ML VIAL. ONE (16:13)
[2016-07-17] MEDS ORDERED: LIDOCAINE 1%/EPI 1:100,000 20 ML VIAL. INJ ONE (16:30)
[2016-07-17] MEDS ORDERED: MIDAZOLAM HCL/PF 5 MG/5 ML VIAL. IV ONE (16:30)
[2016-07-17] MEDS ORDERED: HEPARIN for IV BOLUS 10,000 UNIT/10 ML VIAL. IV ONE (16:30)
[2016-07-17] MEDS ORDERED: fentaNYL PF VIAL 250 MCG/5 ML VIAL IV ONE (16:30)
--- NOTE | 2016-07-17 16:57 | PDOC ---
MODERATE SEDATION ASSESSMENT RISKS/ALTERNATIVES Risks/Alternatives Risks and alternatives of this type of sedation and procedure discussed with: RISK/ALTERNATIVES: Patient H & P ON CHART H & P H & P on chart and reviewed for co-morbid conditions and appropriate labs. H&P ON CHART: Yes STATUS PREG STATUS ASSESSED: N/A MEDS/ALLERGIES REVIEWED Meds/Allergies Reviewed Medications and Allergies including time and route of recently administered narcotics and sedatives. MEDS/ALLERGIES REVIEWED: Yes ASA RATING ASA RATING: II AIRWAY ASSESSMENT Airway Assessment Airway patency, oral function limitations, presence of caps, crowns, dentures, partials, and ability to extend neck assessed. AIRWAY ASSESSMENT: Yes MALLAMPATI SCORE MALLAMPATI SCORE: III PRE-SEDATION ASSESSMENT PRE-SEDATION ASSESSMENT: Yes YOGESH JUÁREZ MD Jul 17, 2016 16:57
--- NOTE | 2016-07-17 17:03 | PDOC ---
Exam Rope Cleaner Rope Cleaner Yoon Single Stroke Preformer Single Stroke Preformer F Ndumbu Pre-Procedure Diagnosis Pre-Procedure Diagnosis 60 YO female with ESRD. Infection resolved. New rt AV access. Conversion from temp to tunneled HDC needed. Post-Procedure Diagnosis Post-Procedure Diagnosis Same Procedure Performed Procedure Performed Sono/fluoro guided Right IJ tunneled HDC insertion. Left IJ Temp HDC removed. Type of Anesthesia Type of Anesthesia Local + Mod sedation. Estimated Blood Loss EBL: Minimal Specimens Specimans 14F 24cm Lt IJ Schon temp HDC Drain/Tubes Drains/Tubes Rt IJ 15.5F 28cm DuraMax tunneled HDC Condition of Patient Condition of Patient Stable. No apparent complication. Disposition Disposition From IR return to [facility] for recovery. F/u with HIMS and Renal. OK to use new rt IJ tunneled HDC. Full report to follow. YOGESH JUÁREZ MD Jul 17, 2016 17:02
[2016-07-17] MEDS: cloNIDine HCL 0.2 MG TABLET PO SCH (17:32)
[2016-07-17] MEDS: FERROUS SULFATE 325 MG TABLET. PO SCH (17:33)
[2016-07-17] MEDS: ARIPiprazole 2 MG TABLET PO SCH (17:34)
[2016-07-17] MEDS: MIRTAZAPINE 7.5 MG TABLET. PO SCH (17:34)
[2016-07-17] MEDS: FOLIC/VIT B COMP W-C (RENAL) TABLET. PO SCH (17:34)
[2016-07-17] MEDS: ESCITALOPRAM 10 MG TABLET. PO SCH (17:35)
[2016-07-17] MEDS: ATORVASTATIN CALCIUM 20 MG TABLET PO SCH (20:45)
[2016-07-17] MEDS: LOPERAMIDE 2 MG CAPSULE PO PRN (21:38)
[2016-07-18 07:30] VITALS: BP 133/40
[2016-07-18] MEDS: FERROUS SULFATE 325 MG TABLET. PO SCH (08:22)
[2016-07-18] MEDS: ESCITALOPRAM 10 MG TABLET. PO SCH (08:22)
[2016-07-18] MEDS: AMIODARONE HCL 200 MG TABLET. PO SCH (08:23)
[2016-07-18] MEDS: ASPIRIN ENTERIC COATED 81 MG TABLET.DR. PO SCH (08:23)
[2016-07-18] MEDS: cloNIDine HCL 0.2 MG TABLET PO SCH (08:24)
[2016-07-18] MEDS: GABAPENTIN 300 MG CAPSULE. PO SCH (08:24)
[2016-07-18] MEDS: ARIPiprazole 2 MG TABLET PO SCH (08:25)
[2016-07-18] MEDS: busPIRone 5 MG TABLET. PO SCH (08:25)
[2016-07-18] MEDS: FOLIC/VIT B COMP W-C (RENAL) TABLET. PO SCH (08:25)
[2016-07-18] MEDS: NYSTATIN TOPICAL POWDER 15GM BOTTLE. TP SCH (08:26)
[2016-07-18] MEDS: MIRTAZAPINE 7.5 MG TABLET. PO SCH (08:26)
[2016-07-18] MEDS: INSULIN DETEMIR 300 UNITS/3 ML INSULN.PEN. SQ SCH (08:38)
[2016-07-18] MEDS: INSULIN ASPART 300 UNITS/3 ML INSULN.PEN SQ SCH ×2 (08:39→12:02)
[2016-07-18] MEDS: HEPARIN PF for SUB-Q USE 5,000 UNIT/0.5 ML VIAL. SQ SCH (08:39)
[2016-07-18] MEDS: SENNOSIDES 8.6 MG TABLET PO SCH (09:00)
[2016-07-18] MEDS: DOCUSATE SODIUM 100 MG CAPSULE. PO SCH (09:00)
[2016-07-18] MEDS: POLYETHYLENE GLYCOL 3350 17 GM PACKET. PO SCH (09:00)
--- NOTE | 2016-07-18 09:39 | PDOC3 ---
Discharge Summary Visit Information Date of Admission: Jul 06, 2016 Date of Discharge: Jul 18, 2016 Admitting Diagnosis: diarrrhea, sepsis Final Diagnosis MRSA sepsis and bacteremia ESRD on dialysis Diabetes mellitus 2, on insulni morbid obese, BMI 47, down almost 150lbs from max weight Hyperlipidemia Hypertension KRYSTLE Infected HDC catheter. MRSA -s/p placement temp [facility] HDC 07/09 -s/p removal [facility] HDC 07/07 Encephalopathy. toxic on admit weakness and debility, full assist, left ankle dislocation, may be chronic Problems Medical Problems: (1) Anemia Status: Acute (2) End stage renal disease Status: Acute (3) Generalized weakness Status: Acute (4) Healthcare-associated pneumonia Status: Acute (5) Sepsis Status: Acute (6) Transient hypotension Status: Acute (7) Urinary tract infection Status: Acute Brief Hospital Course Allergies Allergies Coded Allergies Type Severity Reaction Last Updated Verified I S O L A T I O N *CONTACT* Allergy Unknown 07/16/16 Yes No Known Medication Allergies Allergy Unknown 07/16/16 Yes oxycodone Adverse Reaction Unknown 07/16/16 Yes Vital Signs Vital Signs Date Time Temp Pulse Resp B/P Pulse Ox O2 Delivery O2 Flow Rate FiO2 07/18/16 08:25 72 133/40 07/18/16 07:30 97.7 14 94 Room Air 97.7 07/17/16 16:51 2.0 Lab Results Laboratory Tests Test 07/16/16 11:05 07/16/16 17:04 07/16/16 18:26 07/16/16 21:27 Glucose (Fingerstick) 207mg/dL (70-99) 236mg/dL (70-99) 227mg/dL (70-99) 167mg/dL (70-99) Test 07/16/16 22:03 07/17/16 06:33 07/17/16 07:20 07/17/16 11:21 Glucose (Fingerstick) 159mg/dL (70-99) 206mg/dL (70-99) 216mg/dL (70-99) 131mg/dL (70-99) Test 07/17/16 11:45 07/17/16 13:01 07/17/16 17:32 07/17/16 20:46 Prothrombin Time 16.0SEC (11.7-14.0) Prothromb Time International Ratio 1.4 (0.8-1.1) Glucose (Fingerstick) 130mg/dL (70-99) 175mg/dL (70-99) 236mg/dL (70-99) Test 07/18/16 07:24 Glucose (Fingerstick) 230mg/dL (70-99) Laboratory Tests Test 07/17/16 11:21 07/17/16 11:45 07/17/16 13:01 07/17/16 17:32 Glucose (Fingerstick) 131mg/dL (70-99) 130mg/dL (70-99) 175mg/dL (70-99) Prothrombin Time 16.0SEC (11.7-14.0) Prothromb Time International Ratio 1.4 (0.8-1.1) Test 07/17/16 20:46 07/18/16 07:24 Glucose (Fingerstick) 236mg/dL (70-99) 230mg/dL (70-99) Brief Hospital Course Ms. Rogers is a 60 old female with morbid obesity, end-stage renal disease on hemodialysis, who was found by to have diarrhea, encephalopathy and fever. dialysis catheter site was not looking good, both cultures were done including blood and was started on Zosyn. vancomycin blood cultures were positive. temp HD catheter placed, then clotted, Vasc surg repaired prior fistula pt Saw Dr. Braswell, Dr. Castillo And Dr. Leon day before DC, Right IJ tunneled HDC insertion. Left IJ Temp HDC removed. cleared by ID for DC, cont vanc post HD, Will need IV vanc additional 5 weeks Left ankle is NWB due to sublexued Talus, will f/u in clinic with Dr. Chanel, he would like to exam/ reduce under anesthesia, pt was not amenable to this, and wanted to wait Discharge Information Condition at Discharge: Improved Follow Up: Weeks Disposition/Orders: D/C to Another Facility (skilled) Scheduled Amiodarone Hcl (Amiodarone Hcl) 200 MG PO BID (Reported) Aripiprazole (Abilify) 2.5 MG PO DAILY (Reported) Aspirin (Aspir 81) 81 MG PO DAILY (Reported) Atorvastatin Calcium (Atorvastatin Calcium) 20 MG PO HS (Reported) Buspirone Hcl (Buspirone Hcl) 5 MG PO TID (Reported) Clonidine Hcl (Clonidine Hcl) 0.2 MG PO DAILY (Reported) Darbepoetin Naif In Polysorbat (Aranesp Vial) 100 MCG SQ WEEKLY (Reported) Diltiazem Hcl (Cardizem Cd) 360 MG PO DAILY (Reported) Docusate Sodium (Docusate Sodium) 100 MG PO BID (Reported) Escitalopram Oxalate (Escitalopram Oxalate) 20 MG PO DAILY (Reported) Fe Fumarate/Dinorah/Fa/Bcomp&C (Nephron Fa Tablet) 1 EACH PO DAILY (Reported) Ferrous Sulfate (Ferrous Sulfate) 1 TAB PO DAILY (Reported) Gabapentin (Gabapentin) 600 MG PO BID (Reported) Heparin Sodium,Porcine/Pf (Heparin Sod 5,000 Unit/ 0.5 Ml) 5,000 UNIT IJ TID ( Reported) Melatonin (Melatonin) 9 MG PO DAILY (Reported) Miconazole Nitrate (Micro-Guard) 85 GM TP BID (Reported) Mirtazapine (Mirtazapine) 7.5 MG PO DAILY (Reported) Polyethylene Glycol 3350 (Polyethylene Glycol 3350) 17 GM PO DAILY (Reported) Sennosides (Senna) 8.6 MG PO DAILY (Reported) Scheduled PRN Ipratropium/Albuterol Sulfate (Duoneb 0.5-3(2.5) Mg/3 Ml) 3 ML NEB QID PRN PRN SHORTNESS OF BREATH (Reported) Labetalol Hcl (Labetalol Hcl) 10 MG IV PRN HYPERTENSION, SEE COMMENTS (Reported ) Nph, Human Insulin Isophane (Novolin N) 100 UNIT SQ PRN (Reported) Miscellaneous Medications Insulin Lispro (Humalog) 100 UNIT SQ (Reported) Patient Instructions Patient Instructions time > [address] Irvin perkins. TOMASZ ARTEAGA MD Jul 18, 2016 09:39
--- NOTE | 2016-07-18 09:46 | PDOC ---
PROGRESS NOTES Subjective Subjective No new complaints. Objective Objective Vital Signs Date Time Temp Pulse Resp B/P Pulse Ox O2 Delivery O2 Flow Rate FiO2 07/18/16 08:25 72 133/40 07/18/16 08:00 Room Air 07/18/16 07:30 97.7 14 94 97.7 07/17/16 16:51 2.0 Intake and Output 07/18/16 07:00 Intake Total 1050 ml Balance 1050 ml Intake Oral 950 ml IV Total 100 ml # Voids 4 # Bowel Movements 7 Physical Exam Physical Exam She is supine in bed and comfortable and I have donned PRAFO boot to her right ankle for use while in bed and also while up walking. Assessment Assessment Problems Medical Problems: (1) Anemia Status: Acute (2) End stage renal disease Status: Acute (3) Generalized weakness Status: Acute (4) Healthcare-associated pneumonia Status: Acute (5) Sepsis Status: Acute (6) Transient hypotension Status: Acute (7) Urinary tract infection Status: Acute Plan Plan of Care Agree with plans for transfer to SNF. Comment Review of Relevant I have reviewed the following items dominga (where applicable) has been applied. Labs Laboratory Tests Test 07/16/16 11:05 07/16/16 17:04 07/16/16 18:26 07/16/16 21:27 Glucose (Fingerstick) 207mg/dL (70-99) 236mg/dL (70-99) 227mg/dL (70-99) 167mg/dL (70-99) Test 07/16/16 22:03 07/17/16 06:33 07/17/16 07:20 07/17/16 11:21 Glucose (Fingerstick) 159mg/dL (70-99) 206mg/dL (70-99) 216mg/dL (70-99) 131mg/dL (70-99) Test 07/17/16 11:45 07/17/16 13:01 07/17/16 17:32 07/17/16 20:46 Prothrombin Time 16.0SEC (11.7-14.0) Prothromb Time International Ratio 1.4 (0.8-1.1) Glucose (Fingerstick) 130mg/dL (70-99) 175mg/dL (70-99) 236mg/dL (70-99) Test 07/18/16 07:24 Glucose (Fingerstick) 230mg/dL (70-99) Laboratory Tests Test 07/17/16 11:21 07/17/16 11:45 07/17/16 13:01 07/17/16 17:32 Glucose (Fingerstick) 131mg/dL (70-99) 130mg/dL (70-99) 175mg/dL (70-99) Prothrombin Time 16.0SEC (11.7-14.0) Prothromb Time International Ratio 1.4 (0.8-1.1) Test 07/17/16 20:46 07/18/16 07:24 Glucose (Fingerstick) 236mg/dL (70-99) 230mg/dL (70-99) Microbiology 07/11/16 Blood Culture - Final, Complete NO GROWTH AFTER 5 DAYS 07/08/16 Fecal Leukocyte Stain - Final, Complete 07/06/16 Urine Culture - Final, Complete 07/06/16 Urine Culture Result 1 (NEGRITO) - Final, Complete 07/06/16 Gram Stain - Final, Complete Medications Current Medications Sodium Chloride (Iv Sodium Chloride 0.9% 500ml Bag) 500 ml @ 1,000 mls/hr 1X ONCE IV Last administered on 07/06/16 13:33; Start 07/06/16 at 12:45; Stop 01/12 at 13:14; Status DC Ondansetron HCl (Zofran) 4 mg 1X ONCE IV Last administered on 07/06/16 13:33 ; Start 07/06/16 at 12:45; Stop 07/06/16 at 12:46; Status DC Vancomycin HCl (Vanco Per Pharmacy) 1 each PRN DAILY PRN MC SEE COMMENTS Last administered on 07/17/16 13:35; Start 07/06/16 at 14:00 Piperacillin Sod/ Tazobactam Sod (Zosyn Per Pharmacy) 1 each PRN DAILY PRN MC SEE COMMENTS; Start 07/06/16 at 14:00; Stop 07/08/16 at 09:55; Status DC Levofloxacin/ Dextrose 1 each 1 each PRN DAILY PRN MC SEE COMMENTS; Start 07/06 at 14:00; Stop 07/08/16 at 09:55; Status DC Vancomycin HCl/ Sodium Chloride (Iv Sodium Chloride 0.9% 500ml Bag) 500 ml @ 250 mls/hr 1X ONCE IV Last administered on 07/06/16 15:03; Start 07/06/16 at 14:15; Stop 07/06/16 at 16:14; Status DC Ondansetron HCl (Zofran) 4 mg PRN Q8HRS PRN IV NAUSEA/VOMITING; Start 07/06/16 at 14:30; Stop 07/07/16 at 14:29; Status DC Morphine Sulfate 2 mg PRN Q2HR PRN IV PAIN; Start 07/06/16 at 14:30; Stop 07/07 at 14:29; Status DC Acetaminophen 650 mg 650 mg PRN Q4HRS PRN PO FEVER Last administered on 05:17; Start 07/06/16 at 14:30; Stop 07/07/16 at 14:29; Status DC Piperacillin Sod/ Tazobactam Sod 2.25 gm/Sodium Chloride 50 ml @ 100 mls/hr Q8HRS IV Last administered on 07/08/16 05:17; Start 07/06/16 at 15:00; Stop at 09:55; Status DC Levofloxacin/ Dextrose (LEVAQUIN 500mg PREMIX) 100 ml @ 100 mls/hr Q48H IV Last administered on 07/06/16 17:36; Start 07/06/16 at 15:00; Stop 07/08/16 at 09:55; Status DC Darbepoetin Naif 60 mcg 60 mcg WEEKLYHS SQ Last administered on 07/13/16 22:41 ; Start 07/06/16 at 21:00; Stop 07/16/16 at 09:19; Status DC Sodium Chloride (Iv Sodium Chloride 0.9% 1000ml Bag) 1,000 ml @ 1,000 mls/hr Q1H PRN IV hypotension; Start 07/06/16 at 23:29; Stop 07/07/16 at 05:28; Status DC Sodium Chloride (Normal Saline Flush) 10 ml 1X PRN PRN IV AP catheter pack; Start 07/06/16 at 23:30; Stop 07/07/16 at 23:29; Status DC Sodium Chloride (Normal Saline Flush) 10 ml 1X PRN PRN IV GORE SEAMER catheter pack; Start 07/06/16 at 23:30; Stop 07/07/16 at 23:29; Status DC Info (PHARMACY MONITORING -- do not chart) 1 each PRN DAILY PRN MC SEE COMMENTS ; Start 07/06/16 at 23:30; Stop 07/09/16 at 21:17; Status DC Info 1 each 1 each PRN DAILY PRN MC SEE COMMENTS; Start 07/06/16 at 23:30; Stop 07/07/16 at 13:09; Status DC Vancomycin HCl/ Sodium Chloride (Iv Sodium Chloride 0.9% 250ml) 250 ml @ 250 mls/hr 1X ONCE IV Last administered on 07/07/16 06:36; Start 07/07/16 at 06: 30; Stop 07/07/16 at 07:29; Status DC Nystatin (Nystop) 1 stephan BID TP Last administered on 07/18/16 08:26; Start 02/12 at 14:00 Oxycodone HCl (Roxicodone) 5 mg PRN Q4HRS PRN PO PAIN; Start 07/07/16 at 18:00 ; Stop 07/07/16 at 18:38; Status DC Acetaminophen (Tylenol) 650 mg PRN Q6HRS PRN PO MILD PAIN / TEMP Last administered on 07/17/16 04:07; Start 07/07/16 at 18:45 Tramadol HCl (Ultram) 50 mg PRN Q6HRS PRN PO MODERATE PAIN Last administered on 07/16/16 22:22; Start 07/07/16 at 18:45 Acetaminophen/ Hydrocodone Bitart (Lortab 5/325) 1 tab PRN Q4HRS PRN PO SEVERE PAIN Last administered on 07/13/16 22:42; Start 07/08/16 at 09:30 Vancomycin HCl 1 each 1X ONCE MC Last administered on 07/09/16 05:31; Start 07/09/16 at 05:00; Stop 07/09/16 at 05:01; Status DC Amiodarone HCl (Cordarone) 200 mg BID PO Last administered on 07/18/16 08:23; Start 07/08/16 at 21:00 Aripiprazole (Abilify) 2.5 mg DAILY PO Last administered on 07/18/16 08:25; Start 07/09/16 at 09:00 Aspirin (Ecotrin) 81 mg DAILY PO Last administered on 07/18/16 08:23; Start at 15:00 Atorvastatin Calcium (Lipitor) 20 mg HS PO Last administered on 07/17/16 20:45 ; Start 07/08/16 at 21:00 Buspirone HCl (Buspar) 5 mg TID PO Last administered on 07/18/16 08:25; Start 07/08/16 at 15:00 Clonidine HCl (Catapres) 0.2 mg DAILY PO Last administered on 07/18/16 08:24; Start 07/09/16 at 09:00 Docusate Sodium (Colace) 100 mg BID PO Last administered on 07/13/16 22:41; Start 07/08/16 at 21:00 Ferrous Sulfate (Feosol) 325 mg DAILY PO Last administered on 07/18/16 08:22; Start 07/09/16 at 09:00 Heparin Sodium (Porcine) 5,000 unit TID SQ Last administered on 07/18/16 08:39 ; Start 07/08/16 at 15:00 Albuterol/ Ipratropium (Duoneb) 3 ml PRN QID PRN NEB SHORTNESS OF BREATH; Start 07/08/16 at 14:45 Labetalol HCl (Normodyne) 10 mg PRN BID PRN IVP HYPERTENSION, SEE COMMENTS; Start 07/08/16 at 15:15 Nystatin (Nystop) 1 stephan BID TP ; Start 07/08/16 at 21:00; Status Cancel Mirtazapine (Remeron) 7.5 mg DAILY PO Last administered on 07/18/16 08:26; Start 07/09/16 at 09:00 Polyethylene Glycol (miraLAX PACKET) 17 gm DAILY PO Last administered on 09:00; Start 07/09/16 at 09:00 Sennosides (Senna) 8.6 mg DAILY PO Last administered on 07/10/16 14:45; Start 07/09/16 at 09:00 Non-Formulary Medication 100 mcg WEEKLY SQ TO TREAT ANEMIA; Start 07/15/16 at 09 :00; Status UNV Diltiazem HCl (Cardizem 24hr Cd) 360 mg DAILY PO Last administered on 08:25; Start 07/09/16 at 09:00 Escitalopram Oxalate (Lexapro) 20 mg DAILY PO Last administered on 07/18/16 08 :22; Start 07/09/16 at 09:00 Vitamin B Complex/ Vitamin C (Zoe-Kiran) 1 tab DAILY PO Last administered on 08:25; Start 07/09/16 at 09:00 Gabapentin (Neurontin) 600 mg BID PO Last administered on 07/18/16 08:24; Start 07/08/16 at 21:00 Non-Formulary Medication 9 mg DAILY PO ; Start 07/09/16 at 09:00; Status UNV Insulin Aspart (Novolog) 10 units TIDAC SQ Last administered on 07/14/16 09:26 ; Start 07/08/16 at 16:30; Stop 07/14/16 at 11:48; Status DC Heparin Sodium (Porcine) (Heparin Sodium) 10,000 unit STK-MED ONCE .ROUTE ; Start 07/09/16 at 11:22; Stop 07/09/16 at 11:23; Status DC Lidocaine/Sodium Bicarbonate 20 ml 20 ml STK-MED ONCE IJ ; Start 07/09/16 at 11: 22; Stop 07/09/16 at 11:23; Status DC Heparin Sodium/ Sodium Chloride 500 ml @ As Directed STK-MED ONCE .ROUTE ; Start 07/09/16 at 11:22; Stop 07/09/16 at 11:23; Status DC Heparin Sodium/ Sodium Chloride 60 unit 1X ONCE IV Last administered on 12:21; Start 07/09/16 at 11:45; Stop 07/09/16 at 11:51; Status DC Heparin Sodium (Porcine) (Heparin Sodium) 2,500 unit 1X ONCE INT CAT Last administered on 07/09/16 12:21; Start 07/09/16 at 11:45; Stop 07/09/16 at 11:51 ; Status DC Lidocaine/Sodium Bicarbonate (Buffered Lidocaine 1%) 3 ml 1X ONCE IJ Last administered on 07/09/16 12:20; Start 07/09/16 at 11:45; Stop 07/09/16 at 11:51 ; Status DC Methylprednisolone Acetate (Depo-Medrol 40mg Vial) 40 mg 1X ONCE IM ; Start at 14:45; Stop 07/09/16 at 14:59; Status DC Bupivacaine HCl 10 ml 10 ml 1X ONCE IJ ; Start 07/09/16 at 14:45; Stop at 14:59; Status DC Sodium Chloride 1,000 ml @ 1,000 mls/hr Q1H PRN IV hypotension; Start 07/09/16 at 15:15; Stop 07/09/16 at 21:14; Status DC Albumin Human (Albuminar) 200 ml @ 200 mls/hr 1X PRN PRN IV Hypotension; Start 07/09/16 at 15:15; Stop 07/09/16 at 21:14; Status DC Acetaminophen (Tylenol) 500 mg 1X PRN PRN PO MILD PAIN / TEMP; Start 07/09/16 at 15:15; Stop 07/10/16 at 15:14; Status DC Diphenhydramine HCl (Benadryl) 25 mg 1X PRN PRN IV ITCHING; Start 07/09/16 at 15:15; Stop 07/10/16 at 15:14; Status DC Diphenhydramine HCl (Benadryl) 25 mg 1X PRN PRN IV ITCHING; Start 07/09/16 at 15:15; Stop 07/10/16 at 15:14; Status DC Labetalol HCl (Normodyne) 10 mg PRN Q1HR PRN IVP SBP > 180; Start 07/09/16 at 15:15; Stop 07/10/16 at 15:14; Status DC Clonidine HCl (Catapres) 0.1 mg 1X PRN PRN PO SBP > 180; Start 07/09/16 at 15: 15; Stop 07/10/16 at 15:14; Status DC Info (PHARMACY MONITORING -- do not chart) 1 each PRN DAILY PRN MC SEE COMMENTS ; Start 07/09/16 at 15:15; Status Cancel Vancomycin HCl 1 each 1 each 1X ONCE MC ; Start 07/11/16 at 06:00; Stop at 06:01; Status DC Sodium Chloride (Iv Sodium Chloride 0.9% 1000ml Bag) 1,000 ml @ 1,000 mls/hr Q1H PRN IV hypotension; Start 07/10/16 at 10:45; Stop 07/10/16 at 16:44; Status DC Sodium Chloride (Normal Saline Flush) 10 ml 1X PRN PRN IV AP catheter pack; Start 07/10/16 at 10:45; Stop 07/11/16 at 10:44; Status DC Sodium Chloride (Normal Saline Flush) 10 ml 1X PRN PRN IV GORE SEAMER catheter pack; Start 07/10/16 at 10:45; Stop 07/11/16 at 10:44; Status DC Info (PHARMACY MONITORING -- do not chart) 1 each PRN DAILY PRN MC SEE COMMENTS ; Start 07/10/16 at 10:45; Stop 07/10/16 at 14:25; Status DC Info 1 each 1 each PRN DAILY PRN MC SEE COMMENTS; Start 07/10/16 at 10:45; Status Cancel Lactated Ringer's 1,000 ml @ 50 mls/hr Q20H IV ; Start 07/13/16 at 07:00; Stop 07/13/16 at 18:59; Status Cancel Vancomycin HCl 500 mg/Sodium Chloride 100 ml @ 100 mls/hr 1X ONCE IV Last administered on 07/11/16t 18:00; Start 07/11/16 at 18:00; Stop 07/11/16 at 18:59 ; Status DC Sodium Chloride 1,000 ml @ 1,000 mls/hr Q1H PRN IV hypotension; Start 07/13/16 at 08:26; Stop 07/13/16 at 14:25; Status DC Albumin Human (Albuminar) 200 ml @ 200 mls/hr 1X PRN PRN IV Hypotension; Start 07/13/16 at 08:30; Stop 07/13/16 at 14:29; Status DC Midodrine (Proamatine) 5 mg 1X ONCE PO ; Start 07/13/16 at 08:30; Stop at 08:35; Status DC Acetaminophen (Tylenol) 500 mg 1X PRN PRN PO MILD PAIN / TEMP; Start 07/13/16 at 08:30; Stop 07/14/16 at 08:29; Status DC Diphenhydramine HCl (Benadryl) 25 mg 1X PRN PRN IV ITCHING; Start 07/13/16 at 08:30; Stop 07/14/16 at 08:29; Status DC Diphenhydramine HCl (Benadryl) 25 mg 1X PRN PRN IV ITCHING; Start 07/13/16 at 08:30; Stop 07/14/16 at 08:29; Status DC Labetalol HCl (Normodyne) 10 mg PRN Q1HR PRN IVP SBP > 180; Start 07/13/16 at 08:30; Stop 07/14/16 at 08:29; Status DC Clonidine HCl 0.1 mg 0.1 mg 1X PRN PRN PO SBP > 180; Start 07/13/16 at 08:30; Stop 07/14/16 at 08:29; Status DC Sodium Chloride (Iv Sodium Chloride 0.9% 1000ml Bag) 1,000 ml @ 400 mls/hr Q2H30M PRN IV PATENCY; Start 07/13/16 at 08:26; Stop 07/13/16 at 20:25; Status DC Info 1 each 1 each PRN DAILY PRN MC SEE COMMENTS; Start 07/13/16 at 08:30; Stop 07/17/16 at 13:32; Status DC Sodium Chloride 1,000 ml @ 0 mls/hr Q0M IV Last administered on 07/13/16t 12: 39; Start 07/13/16 at 12:15 Propofol (Diprivan) 40 ml @ As Directed STK-MED ONCE IV ; Start 07/13/16 at 12: 27; Stop 07/13/16 at 12:28; Status DC Lidocaine HCl (Xylocaine-Mpf 1% Vial) 5 ml STK-MED ONCE .ROUTE ; Start 07/13/16 at 12:27; Stop 07/13/16 at 12:28; Status DC Lidocaine HCl (Viscous Lidocaine) 15 ml STK-MED ONCE .ROUTE ; Start 07/13/16 at 12:28; Stop 07/13/16 at 12:29; Status DC Benzocaine (Hurricaine One) 1 spray STK-MED ONCE .ROUTE ; Start 07/13/16 at 12: 28; Stop 07/13/16 at 12:29; Status DC Lidocaine HCl 30 stephan 30 stephan STK-MED ONCE TP ; Start 07/13/16 at 12:28; Stop at 12:29; Status DC Vancomycin HCl 500 mg/Sodium Chloride 100 ml @ 100 mls/hr 1X ONCE IV Last administered on 07/13/16t 16:00; Start 07/13/16 at 16:00; Stop 07/13/16 at 16:59 ; Status DC Albumin Human (Albuminar) 100 ml @ 100 mls/hr TID IV Last administered on 07/15 21:51; Start 07/14/16 at 10:00; Stop 07/15/16 at 21:59; Status DC Calcium Acetate (Phoslo) 1,334 mg TIDWMEALS PO Last administered on 07/17/16 18:09; Start 07/14/16 at 12:00 Insulin Aspart (Novolog) 18 units TIDAC SQ Last administered on 07/15/16 08:12 ; Start 07/14/16 at 12:10; Stop 07/15/16 at 10:16; Status DC Insulin Detemir (Levemir) 20 units DAILY10 SQ Last administered on 07/14/16 12 :22; Start 07/14/16 at 12:00; Stop 07/15/16 at 10:15; Status DC Loperamide HCl (Imodium) 2 mg PRN Q4HRS PRN PO DIARRHEA Last administered on 21:38; Start 07/14/16 at 16:30 Vancomycin HCl 1 each 1X ONCE MC Last administered on 07/15/16 06:00; Start 07/15/16 at 06:00; Stop 07/15/16 at 06:01; Status DC Fentanyl Citrate (Fentanyl 2ml Vial) 25 mcg PRN Q5MIN PRN IV MILD PAIN; Start 07/15/16 at 07:00; Stop 07/16/16 at 06:59; Status DC Fentanyl Citrate (Fentanyl 2ml Vial) 50 mcg PRN Q5MIN PRN IV MODERATE PAIN; Start 07/15/16 at 07:00; Stop 07/16/16 at 06:59; Status DC Morphine Sulfate 1 mg PRN Q10MIN PRN IV SEVERE PAIN; Start 07/15/16 at 07:00; Stop 07/16/16 at 06:59; Status DC Lidocaine HCl 2 ml PRN 1X PRN ID PRIOR TO IV START; Start 07/15/16 at 07:00; Stop 07/16/16 at 06:59; Status DC Hydromorphone HCl (Dilaudid) 0.5 mg PRN Q10MIN PRN IV SEV PAIN, Second choice; Start 07/15/16 at 07:00; Stop 07/16/16 at 06:59; Status DC Prochlorperazine Edisylate 5 mg 5 mg PACU PRN PRN IV NAUSEA, MRX1; Start at 07:00; Stop 07/16/16 at 06:59; Status DC Sodium Chloride 1,000 ml @ 0 mls/hr Q0M IV Last administered on 07/16/16 12: 51; Start 07/15/16 at 13:00 Vancomycin HCl/ Sodium Chloride (Iv Sodium Chloride 0.9% 100ml) 100 ml @ 100 mls/hr QMWF IV Last administered on 07/17/16 15:32; Start 07/15/16 at 16:00 Lidocaine HCl 20 ml STK-MED ONCE .ROUTE ; Start 07/15/16 at 07:14; Stop at 07:15; Status DC Cellulose 1 each STK-MED ONCE .ROUTE ; Start 07/15/16 at 07:16; Stop 07/15/16 at 07:17; Status DC Papaverine HCl 60 mg 60 mg STK-MED ONCE .ROUTE ; Start 07/15/16 at 07:16; Stop 07/15/16 at 07:17; Status DC Heparin Sodium (Porcine) 5000 unit/Sodium Chloride 505 ml @ 505 mls/hr 1X PERIOP ONCE IRR ; Start 07/15/16 at 09:00; Stop 07/15/16 at 09:59; Status DC Cefazolin Sodium/ Sodium Chloride (Ancef/Iv Sodium Chloride 0.9% 500ml Bag) 500 ml @ 500 mls/hr 1X PERIOP ONCE IRR ; Start 07/15/16 at 09:00; Stop 07/15/16 at 09:59; Status DC Insulin Detemir (Levemir) 40 units DAILY10 SQ Last administered on 07/18/16 08 :38; Start 07/16/16 at 10:00 Insulin Aspart 26 units 26 units TIDAC SQ Last administered on 07/18/16 08:39 ; Start 07/15/16 at 11:30 Alteplase, Recombinant/ Sodium Chloride (Activase/Iv Sodium Chloride 0.9% 250ml ) 100 ml @ 10 mls/hr 1X ONCE IV Last administered on 07/15/16 11:35; Start 07/15/16 at 11:30; Stop 07/15/16 at 21:29; Status DC Fentanyl Citrate (Fentanyl 2ml Vial) 25 mcg PRN Q5MIN PRN IV MILD PAIN; Start 07/16/16 at 07:00; Stop 07/17/16 at 06:59; Status DC Fentanyl Citrate (Fentanyl 2ml Vial) 50 mcg PRN Q5MIN PRN IV MODERATE PAIN; Start 07/16/16 at 07:00; Stop 07/17/16 at 06:59; Status DC Morphine Sulfate 1 mg 1 mg PRN Q10MIN PRN IV SEVERE PAIN; Start 07/16/16 at 07: 00; Stop 07/17/16 at 06:59; Status DC Lactated Ringer's (Iv Lactated Ringers) 1,000 ml @ 0 mls/hr Q0M IV ; Start at 07:00; Stop 07/16/16 at 18:59; Status DC Lidocaine HCl 2 ml PRN 1X PRN ID PRIOR TO IV START; Start 07/16/16 at 07:00; Stop 07/17/16 at 06:59; Status DC Hydromorphone HCl (Dilaudid) 0.5 mg PRN Q10MIN PRN IV SEV PAIN, Second choice; Start 07/16/16 at 07:00; Stop 07/17/16 at 06:59; Status DC Prochlorperazine Edisylate 5 mg 5 mg PACU PRN PRN IV NAUSEA, MRX1; Start at 07:00; Stop 07/17/16 at 06:59; Status DC Cefazolin Sodium 1 gm/Sodium Chloride 500 ml @ 500 mls/hr 1X PERIOP ONCE IRR Last administered on 07/16/16 14:37; Start 07/16/16 at 06:00; Stop 07/16/16 at 06:59; Status DC Heparin Sodium (Porcine)/Sodium Chloride (Heparin Sodium/ Iv Sodium Chloride 0.9 % 500ml Bag) 505 ml @ 505 mls/hr 1X PERIOP ONCE IRR Last administered on 07/16 14:37; Start 07/16/16 at 06:00; Stop 07/16/16 at 06:59; Status DC Darbepoetin Naif 100 mcg 100 mcg WEEKLYHS SQ ; Start 07/20/16 at 21:00 Propofol (Diprivan) 20 ml @ As Directed STK-MED ONCE IV ; Start 07/16/16 at 13: 07; Stop 07/16/16 at 13:08; Status DC Ondansetron HCl (Zofran) 4 mg STK-MED ONCE .ROUTE ; Start 07/16/16 at 13:07; Stop 07/16/16 at 13:08; Status DC Famotidine (Pepcid) 20 mg STK-MED ONCE .ROUTE ; Start 07/16/16 at 13:07; Stop at 13:08; Status DC Lidocaine HCl (Lidocaine HCl 2% Abboject) 100 mg STK-MED ONCE .ROUTE ; Start at 13:08; Stop 07/16/16 at 13:09; Status DC Fentanyl Citrate (Fentanyl 2ml Vial) 100 mcg STK-MED ONCE .ROUTE ; Start at 13:08; Stop 07/16/16 at 13:09; Status DC Rocuronium Kerens (Zemuron) 50 mg STK-MED ONCE .ROUTE ; Start 07/16/16 at 13:08 ; Stop 07/16/16 at 13:09; Status DC Cellulose 1 each STK-MED ONCE .ROUTE Last administered on 07/16/16 16:28; Start 07/16/16 at 14:05; Stop 07/16/16 at 14:06; Status DC Lidocaine HCl 20 ml 20 ml STK-MED ONCE .ROUTE Last administered on 07/16/16t 14 :37; Start 07/16/16 at 14:06; Stop 07/16/16 at 14:07; Status DC Propofol (Diprivan) 200 ml @ As Directed STK-MED ONCE IV ; Start 07/16/16 at 14 :15; Stop 07/16/16 at 14:16; Status DC Midazolam HCl (Versed) 2 mg STK-MED ONCE .ROUTE ; Start 07/16/16 at 14:16; Stop 07/16/16 at 14:17; Status DC Ketamine HCl 500 mg STK-MED ONCE .ROUTE ; Start 07/16/16 at 14:17; Stop at 14:18; Status DC Heparin Sodium (Porcine) (Heparin Sodium) 10,000 unit STK-MED ONCE .ROUTE ; Start 07/16/16 at 15:16; Stop 07/16/16 at 15:17; Status DC Protamine Sulfate 50 mg STK-MED ONCE IV ; Start 07/16/16 at 16:42; Stop at 16:43; Status DC Insulin Aspart (Novolog Vial) 6 unit 1X PACU ONCE SQ Last administered on 07/16t 17:23; Start 07/16/16 at 17:30; Stop 07/16/16 at 17:31; Status DC Insulin Aspart 100 unit 100 unit STK-MED ONCE SQ ; Start 07/16/16 at 17:19; Stop 07/16/16 at 17:20; Status DC Sodium Chloride (Iv Sodium Chloride 0.9% 1000ml Bag) 1,000 ml @ 1,000 mls/hr Q1H PRN IV hypotension; Start 07/17/16 at 08:34; Stop 07/17/16 at 14:33; Status DC Sodium Chloride (Normal Saline Flush) 10 ml 1X PRN PRN IV AP catheter pack; Start 07/17/16 at 08:45; Stop 07/18/16 at 08:44; Status DC Sodium Chloride 10 ml 10 ml 1X PRN PRN IV GORE SEAMER catheter pack; Start 07/17/16 at 08:45; Stop 07/18/16 at 08:44; Status DC Sodium Chloride (Iv Sodium Chloride 0.9% 1000ml Bag) 1,000 ml @ 400 mls/hr Q2H30M PRN IV PATENCY; Start 07/17/16 at 08:34; Stop 07/17/16 at 20:33; Status DC Info (PHARMACY MONITORING -- do not chart) 1 each PRN DAILY PRN MC SEE COMMENTS ; Start 07/17/16 at 08:45 Lorazepam (Ativan) 2 mg 1X ONCE IV ; Start 07/17/16 at 16:00; Stop 07/17/16 at 16:01; Status DC Heparin Sodium (Porcine) (Heparin Sodium) 10,000 unit STK-MED ONCE .ROUTE ; Start 07/17/16 at 15:58; Stop 07/17/16 at 15:59; Status DC Lidocaine/ Epinephrine 20 ml 20 ml STK-MED ONCE .ROUTE ; Start 07/17/16 at 15:58 ; Stop 07/17/16 at 15:59; Status DC Heparin Sodium/ Sodium Chloride 500 ml @ As Directed STK-MED ONCE .ROUTE ; Start 07/17/16 at 15:58; Stop 07/17/16 at 15:59; Status DC Midazolam HCl (Versed) 5 mg STK-MED ONCE .ROUTE ; Start 07/17/16 at 16:13; Stop 07/17/16 at 16:14; Status DC Fentanyl Citrate (Fentanyl 5ml Vial) 250 mcg STK-MED ONCE .ROUTE ; Start at 16:13; Stop 07/17/16 at 16:14; Status DC Heparin Sodium/ Sodium Chloride 1,000 unit 1X ONCE IART Last administered on 16:52; Start 07/17/16 at 16:30; Stop 07/17/16 at 16:31; Status DC Midazolam HCl (Versed) 5 mg 1X ONCE IV Last administered on 07/17/16 16:50; Start 07/17/16 at 16:30; Stop 07/17/16 at 16:31; Status DC Fentanyl Citrate (Fentanyl 5ml Vial) 250 mcg 1X ONCE IV Last administered on 16:51; Start 07/17/16 at 16:30; Stop 07/17/16 at 16:31; Status DC Heparin Sodium (Porcine) (Heparin Sodium) 5,000 unit 1X ONCE IV Last administered on 07/17/16 16:53; Start 07/17/16 at 16:30; Stop 07/17/16 at 16:31 ; Status DC Lidocaine/ Epinephrine (Xylocaine 1%-Epi 1:100,000) 20 ml 1X ONCE INJ Last administered on 07/17/16 16:51; Start 07/17/16 at 16:30; Stop 07/17/16 at 16:31 ; Status DC Active Scripts Active Reported Amiodarone Hcl 200 Mg Tablet 200 Mg PO BID Aspir 81 (Aspirin) 81 Mg Tablet.dr 81 Mg PO DAILY Atorvastatin Calcium 20 Mg Tablet 20 Mg PO HS Cardizem Cd (Diltiazem Hcl) 360 Mg Cap.er.24h 360 Mg PO DAILY Docusate Sodium 100 Mg Capsule 100 Mg PO BID Melatonin 3 Mg Tablet 9 Mg PO DAILY Polyethylene Glycol 3350 17 Gm Powd.pack 17 Gm PO DAILY Senna (Sennosides) 8.6 Mg Tablet 8.6 Mg PO DAILY Clonidine Hcl 0.2 Mg Tablet 0.2 Mg PO DAILY Micro-Guard (Miconazole Nitrate) 85 Gm Powder 85 Gm TP BID Humalog (Insulin Lispro) 100 Unit/1 Ml Vial 100 Unit SQ Buspirone Hcl 5 Mg Tablet 5 Mg PO TID Aranesp Vial (Darbepoetin Naif In Polysorbat) 100 Mcg/1 Ml Vial 100 Mcg SQ WEEKLY Nephron Fa Tablet (Fe Fumarate/Dinorah/Fa/Bcomp&C) 1 Each Tablet 1 Each PO DAILY Ferrous Sulfate 325 Mg Tablet 1 Tab PO DAILY Escitalopram Oxalate 20 Mg Tablet 20 Mg PO DAILY Duoneb 0.5-3(2.5) Mg/3 Ml (Albuterol/Ipratropium) 3 Ml Ampul.neb 3 Ml NEB QID PRN Gabapentin 600 Mg Tablet 600 Mg PO BID Mirtazapine 7.5 Mg Tablet 7.5 Mg PO DAILY Abilify (Aripiprazole) 2 Mg Tablet 2.5 Mg PO DAILY Labetalol Hcl 5 Mg/1 Ml Vial 10 Mg IV PRN Heparin Sod 5,000 Unit/ 0.5 Ml (Heparin Sodium,Porcine/Pf) 5,000 Unit/0.5 Ml Vial 5,000 Unit IJ TID Novolin N (Nph, Human Insulin Isophane) 100 Unit/1 Ml Vial 100 Unit SQ PRN Vitals/I & O Vital Sign - Last 24 Hours 07/17/16 07/17/16 07/17/16 07/17/16 15:00 16:47 16:51 17:15 Temp 97.8 97.7 97.8 97.7 Pulse 76 78 81 Resp 18 14 14 20 B/P 175/60 155/82 Pulse Ox 94 98 98 92 O2 Delivery Room Air Nasal Cannula Nasal Cannula Room Air O2 Flow Rate 2.0 2.0 07/17/16 07/17/16 07/17/16 07/17/16 17:30 17:32 17:32 17:45 Temp 97.7 97.7 97.7 97.7 Pulse 83 83 83 81 Resp 19 19 B/P 156/53 155/82 155/82 137/118 Pulse Ox 93 92 O2 Delivery Room Air Room Air 07/17/16 07/17/16 07/17/16 07/17/16 18:00 18:30 19:00 20:00 Temp 97.7 97.7 97.7 97.7 97.7 97.7 Pulse 79 80 79 78 Resp 19 19 B/P 146/39 134/43 133/43 122/72 Pulse Ox 92 94 90 O2 Delivery Room Air Room Air Room Air 07/17/16 07/17/16 07/17/16 07/17/16 20:45 20:45 21:00 23:00 Temp 99.5 99.5 Pulse 86 76 74 Resp 18 B/P 119/39 113/44 105/42 Pulse Ox 98 O2 Delivery Room Air Room Air 07/18/16 07/18/16 07/18/16 07/18/16 07:30 08:00 08:23 08:24 Temp 97.7 97.7 Pulse 72 73 72 Resp 14 B/P 133/40 133/40 133/40 Pulse Ox 94 O2 Delivery Room Air Room Air 07/18/16 08:25 Pulse 72 B/P 133/40 Intake and Output 07/17/16 07/17/16 07/18/16 15:00 23:00 07:00 Intake Total 1050 ml Balance 1050 ml Nutrition Consultation Dietary Evaluation: Recommendations by RD: Increase Calorie Intake, Protein supplementation Comments: Resume diet and Novasource renal - 475kcal and 21.6g protein/ serving Expected Outcomes/Goals: to meet >75% est nutr needs Malnutrition Findings: Food and Nutrition Intake (Mod: <75% est energy req 7days Weight Status: Morbidly Obese Fluid Accumulation (Non-Severe: Mild depletion SHAZIA COLEMAN MD Jul 18, 2016 09:46
--- NOTE | 2016-07-18 11:06 | RAD ---
Ultrasound and fluoro guided placement of right IJ tunneled hemodialysis catheter Removal of left IJ temporary hemodialysis catheter Indication: 60-year-old female with end-stage renal disease, with resolved infection, and with newly created right brachiocephalic AV fistula. Conversion from temporary to tunneled dialysis catheter has been requested by renal. Fluoro time: 1.4 minutes Kerma-Area Product: 8 Gycm2 Moderate sedation: 25 minutes moderate sedation was provided utilizing a total of 1.5 mg Versed and 75 mcg fentanyl, IV. The patient was appropriately monitored by a qualified independent observer throughout the time of moderate sedation. Antibiotic: The patient was receiving IV vancomycin at the time of this procedure. No additional prophylactic antibiotic was considered indicated. Sterility: All elements of maximal sterile barrier technique, including the use of a cap, mask, sterile gown, sterile gloves, large sterile sheet, appropriate hand hygiene, and 2% chlorhexidine for cutaneous antisepsis (or acceptable alternative antiseptic per current guidelines) were utilized. Procedure: Informed consent was obtained from the patient. She was placed supine on the angiography table. Preliminary ultrasound examination of right neck revealed wide patency of low right internal jugular vein, which was documented with a hard copy ultrasound image. Right neck and upper chest were then prepped and draped in the usual sterile fashion, utilizing all elements of maximal sterile barrier technique, as described above. Moderate sedation was provided with IV Versed and Fentanyl. Using aseptic technique and local anesthesia, a small skin incision was made lateral to right internal jugular vein, just above clavicle. Using aseptic technique, local anesthesia, and direct ultrasound guidance, a micropuncture needle was successfully introduced into right internal jugular vein. The micropuncture needle was then exchanged over a microguidewire for a micropuncture sheath, through which an Amplatz wire was advanced into IVC, under fluoroscopic control. A second small skin incision was then made along upper anterior aspect of right chest. A subcutaneous tunnel was then fashioned between the right chest and supraclavicular incisions. A 15.5 F 28 cm Dura Max dialysis catheter was pulled through the subcutaneous tunnel from inferior to superior, utilizing the tunneling device provided. The right IJ venostomy tract was then sequentially dilated and the 15.5 Spanish dialysis catheter was easily advanced centrally through a 16 Spanish peel-away sheath, and was positioned with its tip at near cavoatrial junction utilizing fluoroscopic guidance. This catheter was demonstrated to flush and aspirate normally, was packed, and was secured at the right chest exit site utilizing 2-0 Prolene and sterile dressing. The small supraclavicular incision was closed with 4-0 Vicryl, Steri-Strips, and sterile dressing. Attention was then turned to the indwelling left IJ 14 Spanish 24 cm Schon temporary hemodialysis catheter. Using aseptic technique, this catheter was easily removed utilizing gentle traction. Hemostasis was achieved with manual pressure over left internal jugular vein. A sterile dressing was applied. Patient tolerated the procedures well without apparent complication. Satisfactory position of the new right IJ tunneled dialysis catheter was confirmed with a fluoroscopic spot image. Impression: Successful, uneventful ultrasound and fluoro guided placement of right IJ 15.5 F 24 cm Dura Max tunneled hemodialysis catheter, followed by removal of left IJ 14 Spanish 24 cm Schon temporary hemodialysis catheter, as described.
[2016-07-18] MEDS: VANCOMYCIN PER PHARMACY MC PRN (11:07)
[2016-07-18 11:30] VITALS: BP 125/43
[2016-07-18] MEDS: CALCIUM ACETATE 667 MG CAPSULE PO SCH (11:57)
--- NOTE | 2016-07-18 12:05 | PDOC ---
Renal-Progress Notes Subjective Notes Notes NONE History of Present Illness Hx of present illness NO CHANGE Vitals Vitals Vital Signs Date Time Temp Pulse Resp B/P Pulse Ox O2 Delivery O2 Flow Rate FiO2 07/18/16 11:30 97.5 72 14 125/43 97 Room Air 97.5 07/17/16 16:51 2.0 Weight Weight [ ] I.O. Intake and Output Intake and Output 07/18/16 06:59 Intake Total 1050 ml Balance 1050 ml Intake Oral 950 ml IV Total 100 ml # Voids 4 # Bowel Movements 7 Labs Labs Laboratory Tests Test 07/17/16 13:01 07/17/16 17:32 07/17/16 20:46 07/18/16 07:24 Glucose (Fingerstick) 130mg/dL (70-99) 175mg/dL (70-99) 236mg/dL (70-99) 230mg/dL (70-99) Test 07/18/16 11:38 Glucose (Fingerstick) 235mg/dL (70-99) Micro Micro Microbiology 07/11/16 Blood Culture - Final, Complete NO GROWTH AFTER 5 DAYS 07/08/16 Fecal Leukocyte Stain - Final, Complete 07/06/16 Urine Culture - Final, Complete 07/06/16 Urine Culture Result 1 (NEGRITO) - Final, Complete 07/06/16 Gram Stain - Final, Complete Review of Systems Constitutional: yes: alert, weakness Ears/Nose/Throat: Yes: no symptom reported Eyes: Yes: no symptom reported Pulmonary: Yes dyspnea Cardiovascular: Yes no symptom reported Musculoskeletal: Yes: muscle stiffness Skin: Yes no symptom reported Physical Exam General Appearance: no apparent distress Skin: warm Respiratory: decreased breath sounds Heart: S1S2, RRR Neurology: alert, oriented Assessment Assessment IMP ESRD LINE INFECTION ANEMIA HYPERVOLEMIA PLAN ANTIBIOTICS HD WEDNESDAY CONT MELITON ROWAN MD Jul 18, 2016 12:05
[2016-07-20] MEDS ORDERED: DARBEPOETIN ALFA 100 MCG/0.5 ML DISP.SYRIN. SQ SCH (21:00)
== END 2016-07-18 12:12 | DRG 252 ==
LOC: ER 12:09 → 2 SOUTH 13:54 → 5 NORTH 07-07 00:40
PROVIDERS: ADMIT Internal Medicine; ATTEND Internal Medicine
PROC: 05PY33Z Removal of Infusion Device from Upper Vein, Percutaneous Approach (ICD-10-PCS; 2016-07-07)
PROC: 05HN33Z Insertion of Infusion Device into Left Internal Jugular Vein, Percutaneous Approach (ICD-10-PCS; 2016-07-09)
PROC: B544ZZA Ultrasonography of Left Jugular Veins, Guidance (ICD-10-PCS; 2016-07-09)
PROC: 5A1D60Z (ICD-10-PCS; 2016-07-09)
PROC: 3E0U33Z Introduction of Anti-inflammatory into Joints, Percutaneous Approach (ICD-10-PCS; 2016-07-09)
PROC: 3E0U3BZ Introduction of Anesthetic Agent into Joints, Percutaneous Approach (ICD-10-PCS; 2016-07-09)
PROC: 051 Upper Veins, Bypass (ICD-10-PCS; principal; 2016-07-16 13:30)
PROC: 03B70ZZ Excision of Right Brachial Artery, Open Approach (ICD-10-PCS; 2016-07-16 13:30)
DX: T82.7XXA Infection and inflammatory reaction due to other cardiac and vascular devices, implants and grafts, initial encounter (principal); J18.9 Pneumonia, unspecified organism; N18.6 End stage renal disease; G92 Toxic encephalopathy; J96.00 Acute respiratory failure, unspecified whether with hypoxia or hypercapnia; A41.02 Sepsis due to Methicillin resistant Staphylococcus aureus; R65.20 Severe sepsis without septic shock; N39.0 Urinary tract infection, site not specified; I12.0 Hypertensive chronic kidney disease with stage 5 chronic kidney disease or end stage renal disease; A04.7 Enterocolitis due to Clostridium difficile; Z68.42 Body mass index [BMI] 45.0-49.9, adult; E11.22 Type 2 diabetes mellitus with diabetic chronic kidney disease; E11.42 Type 2 diabetes mellitus with diabetic polyneuropathy; E78.00 Pure hypercholesterolemia, unspecified; E78.5 Hyperlipidemia, unspecified; F32.9 Major depressive disorder, single episode, unspecified; E66.01 Morbid (severe) obesity due to excess calories; E21.3 Hyperparathyroidism, unspecified; K59.00 Constipation, unspecified; M25.473 Effusion, unspecified ankle; E87.70 Fluid overload, unspecified; D64.9 Anemia, unspecified; L89.619 Pressure ulcer of right heel, unspecified stage; M10.00 Idiopathic gout, unspecified site; E11.51 Type 2 diabetes mellitus with diabetic peripheral angiopathy without gangrene; E11.69 Type 2 diabetes mellitus with other specified complication; Y95 Nosocomial condition; E86.0 Dehydration; Y83.8 Other surgical procedures as the cause of abnormal reaction of the patient, or of later complication, without mention of misadventure at the time of the procedure; S93.05XA Dislocation of left ankle joint, initial encounter; Z82.49 Family history of ischemic heart disease and other diseases of the circulatory system; Z89.429 Acquired absence of other toe(s), unspecified side; Z91.19 Patient's noncompliance with other medical treatment and regimen; Z99.2 Dependence on renal dialysis; Z87.891 Personal history of nicotine dependence; Z79.899 Other long term (current) drug therapy; Z79.1 Long term (current) use of non-steroidal anti-inflammatories (NSAID); Z79.82 Long term (current) use of aspirin
CPT/HCPCS: 36415; 36556; 36558; 36589; 71010; 73030; 73600; 76937; 77001; 80048; 80053; 80202; 81001; 82947; 83605; 83735; 83880; 84100; 84484; 85007; 85027; 85610; 85730; 87040; 87071; 87075; 87086; 87186; 87205; 87324; 93005; 93312; 93325; 93970; 96374; 96375; 96376; A4215; C1750; C1769; C1892; J0690; J0881; J1815; J1956; J2250; J2405; J2440; J2543; J2704; J2997; J3010; J3370; J3490; J7030; J7040; J7050; P9046; S0028; 97530; 97535; 99285-25